=== PATIENT | female | born 1940 | race Caucasian/White ===

== ENCOUNTER → 2017-04-13 08:51 | Day surgery (SDC) | payer MEDICARE, SELFPAY ==
[2017-04-12 09:35] VITALS: BMI 45.7
[2017-04-13 09:11] LABS: Hematocrit 37.8 % (37-47); Hemoglobin 11.3 g/dl (12.0-15.0); Mean Corp Hgb Conc 29.9 g/gl (32-36); Mean Corpuscular Hgb 25.1 pg (27.0-32.0); Mean Platelet Vol. 8.3 fl (6.2-12.0); Platelet Count 256 K/mm3 (150-450); RBC Distribution Width CV 18.9 % (11.6-14.6); RBC Distribution Width SD 57.9 fl (35.1-43.9); White Blood Count 9.1 K/mm3 (4.4-11.0)
[2017-04-13 09:12] LABS: Scan Indicated on CBC? Y/N NO
[2017-04-13 09:26] LABS: Albumin, Serum 3.1 g/dL (3.2-5.0); BUN 26 mg/dL (7-18); BUN/Creat Ratio 31.1 RATIO (10-20); Calcium,Total 8.4 mg/dL (8.5-10.1); Chloride 105 mmol/L (98-107); Creatinine, Serum 0.84 mg/dL (0.55-1.02); EST Glomerular Filtration Rate 71 mL/min (>60); Est Glom Filt Rate - Afr Amer 86 mL/min (>60); Estimated Creatinine Clearance 45.77 ml/min; Glucose 98 mg/dL (70-110); Phosphorus 3.7 mg/dL (2.5-4.9); Potassium 4.2 mmol/L (3.5-5.1); Sodium Level 141 mmol/L (136-145)
--- NOTE | 2017-04-13 11:26 | PCM.OPRPT ---
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 Ultrasound-guided access retrograde left brachial artery. #2 arch aortogram with left arm angio. #3 stent the left subclavian with a 7 x 39 [place] Type of Anesthesia:: Sedation,Conscious Description of Procedure: Ada was brought to the Fisheries Enforcement Officer. Underwent the appropriate timeout consent. Underwent conscious sedation. Prepped and draped in a sterile fashion. We did ultrasound-guided access retrograde left brachial artery and put a Glidewire and then a 5 [place] sheath. We gave 3000 units of heparin. We then brought in a Kumpe catheter and image showing the subtotal occlusion of the subclavian we used the Glidewire and catheter got through the area the occlusion confirmed into the arch aorta. We did an angiogram there get the wire down the descending thoracic aorta brought in a stiff Glidewire brought in a longer 6 [place] sheath through the lesion. We pulled back showing the area into the arch brought in a 7 x 39 [place] and deployed in good position we then brought a 7 x 2 balloon and ballooned at the area of into the arch to expand this further. We did a completion angios showed great flow now through the stent which is widely patent. Removed out the sheath put a shorter sheath and held pressure with good hemostasis she was then brought to recovery in stable condition
--- NOTE | 2017-04-13 11:30 | OP.PCM_ITS ---
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 Ultrasound-guided access retrograde left brachial artery. #2 arch aortogram with left arm angio. #3 stent the left subclavian with a 7 x 39 [place] Type of Anesthesia:: Sedation,Conscious Description of Procedure: Ada was brought to the Tower Switch Operator. Underwent the appropriate timeout consent. Underwent conscious sedation. Prepped and draped in a sterile fashion. We did ultrasound-guided access retrograde left brachial artery and put a Glidewire and then a 5 [place] sheath. We gave 3000 units of heparin. We then brought in a Kumpe catheter and image showing the subtotal occlusion of the subclavian we used the Glidewire and catheter got through the area the occlusion confirmed into the arch aorta. We did an angiogram there get the wire down the descending thoracic aorta brought in a stiff Glidewire brought in a longer 6 [place] sheath through the lesion. We pulled back showing the area into the arch brought in a 7 x 39 [place] and deployed in good position we then brought a 7 x 2 balloon and ballooned at the area of into the arch to expand this further. We did a completion angios showed great flow now through the stent which is widely patent. Removed out the sheath put a shorter sheath and held pressure with good hemostasis she was then brought to recovery in stable condition
== END ==
PROVIDERS: Family Provider Family Medicine; PCP Family Medicine; Visit Provider Surgery Vascular Surgery
DX: G45.0 Vertebro-basilar artery syndrome (principal); K21.9 Gastro-esophageal reflux disease without esophagitis; J44.9 Chronic obstructive pulmonary disease, unspecified; E11.9 Type 2 diabetes mellitus without complications; F32.9 Major depressive disorder, single episode, unspecified; F41.9 Anxiety disorder, unspecified; M19.90 Unspecified osteoarthritis, unspecified site; J45.909 Unspecified asthma, uncomplicated; Z72.0 Tobacco use
CPT/HCPCS: 36415; 37236; 75710; 76937; 80069; 85027; 99152; 99153; J7040; Q9967; C1725; C1769; C1876; C1894

== ENCOUNTER 2017-04-20 14:16 | Emergency (ER) | payer MEDICARE, SELFPAY ==
[2017-04-20 14:17] VITALS: BP 150/75; PULSE 82; RESP 16; TEMP 36.6; O2SAT 95; BMI 48.2
--- NOTE | 2017-04-20 14:38 | CT_ITS ---
STUDY: CT BRAIN WITHOUT CONTRAST REASON FOR EXAM: Female, 76 years old. 3 week history of headaches. RADIATION DOSAGE (If Supplied By Facility): CTDIvol = ( 44.99 ) mGy, DLP = ( 779.24 ) mGycm TECHNIQUE: Transaxial CT imaging of the brain was performed without administration of intravenous contrast material. Individualized dose optimization techniques were used for this CT. COMPARISON: None. FINDINGS: Normal soft tissue structures. Normal calvarium. Normal size ventricles and extra-axial spaces for the patient's age. Normal white matter tracts of the cerebral hemispheres. Normal basal ganglia and thalami. Normal brainstem. Normal cerebellum. There is no intracranial hemorrhage. There are no findings of an acute ischemic infarction. Normal visualized paranasal sinuses. CT/Brain/Head without Contrast IMPRESSION: Normal unenhanced CT scan of the brain. Electronically Signed: Emanuel Ventura MD at 15:57 EST Tel [phone], Service support ,
--- NOTE | 2017-04-20 15:23 | ED.RN ---
BENADRYL 25MG IVP & COMPAZINE 10MG IVP WERE ADMINISTERED BY THIS NURSE. UNABLE TO CHART UNDER SHANELLE CHIRINOS. DUE TO CHARTING WAS STARTED BY CARMELA PARTIDA RN.
[2017-04-20] MEDS: DiphenhydrAMINE 50 MG/ML Syringe 25 MG IV (16:01)
[2017-04-20] MEDS: proCHLORPERazine 10 MG/2 ML Vial IM (16:01)
--- NOTE | 2017-04-20 16:23 | ED.VISSUMM ---
- ER Visit Summary Date of Service: 04/20/17 Chief Complaint: Headache History of Present Illness: The patient is a 76 F who presents with a headache. She has had 3 days of a left-sided dull pain. She has had associated nausea. No vomiting. She has had some blurry vision. She denies any falls or trauma. She had an angioplasty done on April 13. The headache was going on long before that. She tried Tylenol at home without any relief. Physical Examination: Vital signs reviewed. HEENT exam unremarkable. She does have tenderness on the left cervical paraspinal area. Heart is regular rate and rhythm without murmurs. Lungs are clear to auscultation. Abdomen is soft and nontender. Extremities reveal no edema. Skin exam normal. Neurologic exam normal. Test Results: CT scan of the head normal Emergency Department Course and Treatment: Patient was given Compazine and Benadryl. Her headache improved with this. The pain might be muscular tension she does have some muscular pain in her neck. Family will massage the neck and put some creams on it. She will continue Tylenol and will follow up with her PCP Treatment Plan: [] Disposition: Discharge Impression: Headache This note was generated with [employer] dictation software. It may contain incorrect words, spelling, and punctuation that were not noted in review of the chart prior to signing ED Disposition - Plan for ED Patient: Chief Complaint: Headache Referrals: Vicente Raya III, MD [Primary Care Provider] -
--- NOTE | 2017-04-20 16:25 | ED.DEP ---
ED Disposition - Plan for ED Patient: Disposition: Home or Assisted Living Chief Complaint: Headache Instructions: ED Cephalgia Unspecified Referrals: Vicente Raya III, MD [Primary Care Provider] -
== END 2017-04-20 16:33 | disposition home or self-care (01) ==
PROVIDERS: Emergency Provider Emergency Medicine; Family Provider Family Medicine; PCP Family Medicine
DX: R51 Headache (principal); R11.0 Nausea; I25.10 Atherosclerotic heart disease of native coronary artery without angina pectoris; J45.909 Unspecified asthma, uncomplicated; E11.9 Type 2 diabetes mellitus without complications; I10 Essential (primary) hypertension; Z72.0 Tobacco use
CPT/HCPCS: 70450; 99283; A4216

== ENCOUNTER 2017-07-06 11:00 | Outpatient (RCR) | payer MEDICARE, SELFPAY | END 2017-07-11 23:59 | LOC: NS 11:00 | PROVIDERS: Family Provider Family Medicine; PCP Family Medicine; Visit Provider Family Medicine | DX: E66.01 Morbid (severe) obesity due to excess calories (principal); E11.9 Type 2 diabetes mellitus without complications; I25.10 Atherosclerotic heart disease of native coronary artery without angina pectoris; G47.33 Obstructive sleep apnea (adult) (pediatric); J45.909 Unspecified asthma, uncomplicated; Z68.42 Body mass index [BMI] 45.0-49.9, adult; Z71.3 Dietary counseling and surveillance | CPT/HCPCS: 97803 ==

== ENCOUNTER 2017-07-10 08:31 | Emergency (ER) | payer MEDICARE, SELFPAY ==
[2017-07-10 08:33] VITALS: BP 152/80; PULSE 88; RESP 16; TEMP 36.5; O2SAT 94; BMI 45.7
--- NOTE | 2017-07-10 08:44 | CT_ITS ---
STUDY: CT BRAIN WITHOUT CONTRAST REASON FOR EXAM: Female, 76 years old. Headaches RADIATION DOSAGE (If Supplied By Facility): CTDIvol = ( 44.99 ) mGy, DLP = ( 745.49 ) mGycm TECHNIQUE: Transaxial CT imaging of the brain was performed without administration of intravenous contrast material. Individualized dose optimization techniques were used for this CT. COMPARISON: None. FINDINGS: Normal soft tissue structures. Normal calvarium. There is mild cerebral atrophy with widening of the extra-axial spaces and ventricular dilatation. There are areas of decreased attenuation within the white matter tracts of the supratentorial brain, consistent with microvascular disease changes. Normal basal ganglia and thalami. Normal brainstem. There is mild cerebellar atrophy. Empty sella. There is no intracranial hemorrhage. There are no findings of an acute ischemic infarction. Normal visualized paranasal sinuses. CT/Brain/Head without Contrast IMPRESSION: Chronic involutional changes of the brain. Electronically Signed: Poli Aguillon DO at 10:26 EDT Tel , Service support ,
--- NOTE | 2017-07-10 08:52 | ED.VISSUMM ---
- ER Visit Summary Date of Service: 07/10/17 Chief Complaint: [] Neck pain and headache after mushroom hunting yesterday History of Present Illness: The patient is a 76 F [] history of cardiac stents, hypertension, diffuse whole body arthritis, fibromyalgia, peripheral vascular disease with right sided carotid endarterectomy, left axillary stent type sent by history who was in her usual state of stable health she felt well she was out mushroom hunting bending over picking up mushrooms than a few hours later began having pain to her neck and back of the head to where she had trouble rotating her head left or right she has no paresthesias, no trauma, no numbness weakness no difficulty with her cognition and her speech or vision are all normal, she was able to go about her normal activities, the neck stiffness and headache persisted she came in for evaluation she is on hydrocodone for fibromyalgia and diffuse arthritic pain that is not helping, she indicates other than the repetitive bending and turning yesterday she did not suffer any direct trauma, and despite all the above she has been able to execute her daily activities Physical Examination: [] Her vital signs are within normal range she is resting comforting the bed she points directly to the right and left paracervical musculature and she has some discomfort into the occipital area of her head palpation of these areas are really nonspecific there is no signs of warmth fullness redness there is no specific C-spine tenderness when she is asked to rotate her head left or right or bend her head she complains of discomfort in her neck, she is awake and alert her cranial nerves are normal her speech and vision are normal her phonation is normal, her neck again is as above but she is able to move left and right and is able to flex and extend but complains of discomfort, she has carotid upstrokes bilaterally, her lungs are more wheezing, the heart tones sound regular the abdomen is soft and obese but nontender upper lower extremities unremarkable she has strong radial pulses bilaterally she has excellent normal strength of upper extremities and lower extremities no deficits in sensation no deficits of cerebellar function cranial nerves and speech are normal her NIH is 0 Test Results: [] Emergency Department Course and Treatment: [] The symptoms started yesterday afternoon given her age and all the above CT scan pain management screening labs Her screening labs are generally unremarkable for her hemoglobin is 10 that is near baseline, her EKG shows nothing acute, her head CT and neck CT showed nothing acute rather signs consistent with her age, and DJD's multiple level cervical spine but no fracture or anything that is acute on reevaluation she is feeling better discussed issues with her and her she is feeling better she wants to go home she understands the concept of the arthritis triggering this pain from the activity she described above, she will follow-up her family physicians given her multiple allergies her current pain management options and the fact she is currently under pain management by her physicians have explained she should stay on those medications and obtain further pain management options from her primary care physicians or other physicians she understands and will follow-up she is also to avoid strenuous lifting bending or mushroom collecting type activities and she agrees and will return for change in symptoms Treatment Plan: [] Disposition: [] Home stable Impression: [] Acute cervical strain, cervical spine DJD headache suspect related to activity dictated above This note was generated with [employer] dictation software. It may contain incorrect words, spelling, and punctuation that were not noted in review of the chart prior to signing ED Disposition - Plan for ED Patient: Chief Complaint: Headache Referrals: Vicente Raya III, MD [Primary Care Provider] -
--- NOTE | 2017-07-10 08:55 | NURSING ---
NO LW OR POA
--- NOTE | 2017-07-10 08:56 | CT_ITS ---
STUDY: CT CERVICAL SPINE WITHOUT CONTRAST REASON FOR EXAM: Female, 76 years old. Pain to right side of head and neck RADIATION DOSAGE (If Supplied By Facility): CTDIvol = ( 29.81 ) mGy, DLP = ( 582.50 ) mGycm TECHNIQUE: High resolution transaxial imaging was performed without contrast material. Sagittal and coronal images were reconstructed. Individualized dose optimization techniques were used for this CT. COMPARISON: None FINDINGS: Normal craniovertebral junction. Normal anterior atlantoaxial articulation. Normal odontoid process. Normal cervical lordosis. No acute fracture or listhesis. Mild diffuse demineralization. Mild to moderate multilevel degenerative disc disease, most prominent at C4-5, C5-6 and C6-7. No critical central canal stenosis. Normal visualized soft tissue structures. CT/Spine Cervical without Contras IMPRESSION: Multilevel degenerative changes, as described above. Electronically Signed: Poli Aguillon DO at 10:25 EDT Tel , Service support ,
[2017-07-10] MEDS: Morphine 4 MG/ML Syringe IV ×2 (09:05→10:36)
[2017-07-10] MEDS: Ondansetron 4 MG/2 ML Vial IV (09:05)
[2017-07-10 09:20] LABS: Absolute Neutrophil Count 9.3 X10^3/uL (2.0-7.7); Basophil# 0.03 X10^3/uL; Basophil% 0.2 % (0-1); Eosinophil# 0.14 X10^3/uL; Eosinophils% 1.1 % (0-5); Hematocrit 34.3 % (37-47); Hemoglobin 10.3 g/dl (12.0-15.0); Lymphocyte % 12.3 % (19-41); Mean Corpuscular Hgb 24.4 pg (27.0-32.0); Mean Corpuscular Volume 81.3 fL (81-99); Mean Platelet Vol. 8.2 fl (6.2-12.0); Monocyte# 1.18 X10^3/uL; Monocyte% 9.7 % (0-10); Neutrophil # 9.33 X10^3/uL (2.7-7.7); Neutrophil % 76.5 % (47-70); POSITIVE COUNT NO; POSITIVE DIFFERENTIAL NO; POSITIVE MORPHOLOGY NO; Platelet Count 225 K/mm3 (150-450); RBC Distribution Width CV 18.1 % (11.6-14.6); RBC Distribution Width SD 53.2 fl (35.1-43.9); Red Blood Count 4.22 M/mm3 (4.2-5.4); White Blood Count 12.2 K/mm3 (4.4-11.0)
[2017-07-10 09:30] LABS: Anion Gap 5 (5-15); BUN 18 mg/dL (7-18); BUN/Creat Ratio 25.5 RATIO (10-20); Calcium,Total 8.4 mg/dL (8.5-10.1); Chloride 104 mmol/L (98-107); EST Glomerular Filtration Rate 86 mL/min (>60); Est Glom Filt Rate - Afr Amer 104 mL/min (>60); Estimated Creatinine Clearance 38.44 ml/min; Glucose 97 mg/dL (74-106); Potassium 3.9 mmol/L (3.5-5.1); Sodium Level 138 mmol/L (136-145)
--- NOTE | 2017-07-10 10:17 | EKG12_ITS ---
Test Reason : DYSRHYTHMIA Blood Pressure : / mmHG Vent. Rate : 075 BPM Atrial Rate : 075 BPM P-R Int : 174 ms QRS Dur : 094 ms QT Int : 388 ms P-R-T Axes : 067 081 044 degrees QTc Int : 433 ms Normal sinus rhythm Nonspecific ST abnormality Abnormal ECG Confirmed by SANDI LEI, WILBERTO ([id number]), web content editor DANIA FULLER ([id number]) on 07/12/2017 2:08:18 PM Referred By: Vicente Raya Confirmed By:WILBERTO JUNIOR MD
[2017-07-10 10:42] VITALS: BP 129/71; PULSE 85; RESP 22; O2SAT 95
--- NOTE | 2017-07-10 11:22 | ED.DEP ---
ED Disposition - Plan for ED Patient: Chief Complaint: Headache Instructions: ED Cephalgia Unspecified, and Childbirth: Abdominal Cerclage, ED Sprain Strain Neck Referrals: Vicente Raya III, MD [Primary Care Provider] -
[2017-07-10 11:25] VITALS: BP 132/75; PULSE 85; RESP 16; O2SAT 98
== END 2017-07-10 12:10 | disposition home or self-care (01) ==
PROVIDERS: Emergency Provider Emergency Medicine; Family Provider Family Medicine; PCP Family Medicine
DX: M47.812 Spondylosis without myelopathy or radiculopathy, cervical region (principal); R51 Headache; S16.1XXA Strain of muscle, fascia and tendon at neck level, initial encounter; X50.1XXA Overexertion from prolonged static or awkward postures, initial encounter; Y93.89 Activity, other specified; Y92.89 Other specified places as the place of occurrence of the external cause; Y99.9 Unspecified external cause status; I10 Essential (primary) hypertension; I73.9 Peripheral vascular disease, unspecified; M79.7 Fibromyalgia; J44.9 Chronic obstructive pulmonary disease, unspecified; I25.10 Atherosclerotic heart disease of native coronary artery without angina pectoris
CPT/HCPCS: 70450; 72125; 80048; 85025; 93005; 96374; 96375; 96376; 99283; J7040; A4216; J2405

== ENCOUNTER → 2017-07-13 10:00 | Outpatient (CLI) | payer MEDICARE, SELFPAY ==
--- NOTE | 2017-07-20 11:33 | UEAS ---
Arterial Study - Arterial Study Arterial Study: next Date of scan 07/13/[address] Alas History of subclavian steal syndrome here for a digit brachial index are next Interpretation: Right upper extremity with a brachial pressure 174 digit brachial index of 141 with a digit brachial index of 0.81 Left upper extremity brachial pressure 154 digit brachial at 140 with the digit brachial index 0.80 Impression: 1. Right upper extremity no evidence significant occlusive disease at the normal pressure normal digit brachial index 2. Left upper extremity digit brachial index appears symmetric to the right at 0.8 but decreased pressure at the brachial 154. Further evaluation as clinically warranted
== END ==
PROVIDERS: Family Provider Family Medicine; PCP Family Medicine; Visit Provider Surgery Vascular Surgery
DX: G45.8 Other transient cerebral ischemic attacks and related syndromes (principal)
CPT/HCPCS: 93923; 93931

== ENCOUNTER 2017-07-20 11:12 | Outpatient (RCR) | payer MEDICARE, SELFPAY | END 2017-07-20 11:13 | disposition home or self-care (01) | LOC: NS 11:12 | PROVIDERS: Family Provider Family Medicine; PCP Family Medicine; Visit Provider Family Medicine | DX: E66.01 Morbid (severe) obesity due to excess calories (principal); E11.9 Type 2 diabetes mellitus without complications; Z71.3 Dietary counseling and surveillance | CPT/HCPCS: 97803 ==

== ENCOUNTER 2017-11-17 23:09 | Inpatient (IN) | payer MEDICARE, SELFPAY ==
[2017-11-17 23:12] VITALS: BP 140/68; PULSE 93; RESP 18; TEMP 36.8; O2SAT 93; BMI 45.7
[2017-11-18] VITALS (23 sets, daily range): BP systolic 111–140; BP diastolic 45–81; PULSE 83–115; RESP 18–24; TEMP 36.5–36.7; O2SAT 92–100; BMI 50.5; BMI 50.6
--- NOTE | 2017-11-18 00:12 | EKG12_ITS ---
Test Reason : SOB Blood Pressure : / mmHG Vent. Rate : 077 BPM Atrial Rate : 077 BPM P-R Int : 194 ms QRS Dur : 080 ms QT Int : 360 ms P-R-T Axes : 070 064 092 degrees QTc Int : 407 ms Normal sinus rhythm Septal infarct , age undetermined Abnormal ECG Confirmed by MARRY CARD ([id number]), communications editor DANIA FULLER ([id number]) on 11/22/2017 2:39:55 PM Referred By: Princess Finney Confirmed By:MARRY CARD
[2017-11-18] MEDS: Albuterol 2.5 MG/3 ML VIAL.NEB. INHALATION ×3 (00:20→01:02)
[2017-11-18] MEDS: Ipratropium/Albuterol Sulfate 3 ML AMPUL.NEB INHALATION ×6 (00:20→23:19)
[2017-11-18] MEDS: 0.9% Normal Saline 1,000 ML 150 ML IV (01:05)
[2017-11-18] MEDS: MethylPREDNISolone 125 MG/2 ML Vial IV (01:05)
[2017-11-18 01:07] LABS: Absolute Lymphocyte Count 3.01 X10^3/ul (0.83-4.51); Absolute Neutrophil Count 12.7 X10^3/uL (2.0-7.7); Basophil# 0.04 X10^3/uL; Basophil% 0.2 % (0-1); Hematocrit 35.5 % (37-47); Lymphocyte # 3.01 X10^3/ul (4.0); Lymphocyte % 16.9 % (19-41); Mean Corpuscular Hgb 24.8 pg (27.0-32.0); Mean Platelet Vol. 8.8 fl (6.2-12.0); Monocyte# 1.91 X10^3/uL; Monocyte% 10.7 % (0-10); Neutrophil # 12.68 X10^3/uL (2.7-7.7); Neutrophil % 71.1 % (47-70); Platelet Count 345 K/mm3 (150-450); RBC Distribution Width CV 19.8 % (11.6-14.6); RBC Distribution Width SD 56.2 fl (35.1-43.9); Red Blood Count 4.44 M/mm3 (4.2-5.4); White Blood Count 17.8 K/mm3 (4.4-11.0)
[2017-11-18 01:09] LABS: Differential Indicated SCAN CRITERIA MET; POSITIVE COUNT NO; POSITIVE DIFFERENTIAL YES; POSITIVE MORPHOLOGY NO
[2017-11-18] MEDS: levoFLOXacin IV 750 MG/150 ML BAG 100 MG IV (01:26)
[2017-11-18 01:27] LABS: Anion Gap 9 (5-15); BUN 28 mg/dL (7-18); BUN/Creat Ratio 26.4 RATIO (10-20); Calcium,Total 8.7 mg/dL (8.5-10.1); Chloride 111 mmol/L (98-107); Creatinine, Serum 1.06 mg/dL (0.55-1.02); EST Glomerular Filtration Rate 54 mL/min (>60); Est Glom Filt Rate - Afr Amer 65 mL/min (>60); Estimated Creatinine Clearance 35.71 ml/min; Glucose 67 mg/dL (74-106); Potassium 4.3 mmol/L (3.5-5.1); Sodium Level 145 mmol/L (136-145)
[2017-11-18 01:43] LABS: Lactic Acid 2.2 mmol/L (0.4-2.0)
--- NOTE | 2017-11-18 01:43 | ED.RN ---
lab called with critical lab results. lactic acid 2.2. Dr. arreaga made aware. no new orders at this time
[2017-11-18 01:51] LABS: Differential Comment SCANNED
[2017-11-18] MEDS: LORazepam 2 MG/ML Syringe 1 MG IV (02:03)
--- NOTE | 2017-11-18 02:20 | ED.VISSUMM ---
- ER Visit Summary Date of Service: 11/18/17 Chief Complaint: [Shortness of breath] History of Present Illness: The patient is a 77 F [presents the emergency room with complaint of shortness of breath ?2 weeks. Patient has had a cough and at times coughing up yellow-white sputum and at times tinged with blood. Patient was diagnosed with pneumonia yesterday and started Zithromax. Patient complains of shortness of breath with activity and exertion. She denies any chest pain. Patient has been wheezing and has been having body aches.] Physical Examination: [HEENT-PERRLA, EOMI. Cranial nerves II through XII grossly intact. TMs clear. Mucous membranes moist. No adenopathy. Cardiovascular-regular rate and rhythm without murmur or ectopy Lungs-diminished breath sounds bilaterally with X Tory wheezes. Patient has some coarse breath sounds bilaterally. Mild tachypnea. No accessory muscles or retractions. Abdomen-normoactive bowel sounds, soft, nontender, no rebound or rigidity, no peritoneal signs. Extremities-intact ?4, normal range of motion, normal pulses, atraumatic] Test Results: CBC with differential obtained showed an elevated white count of 17.8, hemoglobin 11, hematocrit 35, platelets 345. Chemistries unremarkable. Troponin was less than 0.015. Chest x-ray obtained showed a right lower lobe that has increased markings cannot rule out pneumonia versus edema.] Emergency Department Course and Treatment: [Patient was started on Levaquin after blood cultures obtained. Patient was given DuoNeb aerosols and Solu-Medrol] Treatment Plan: [Admit] Disposition: [Admit] Impression: [Community-acquired pneumonia COPD exacerbation] This note was generated with [employer] dictation software. It may contain incorrect words, spelling, and punctuation that were not noted in review of the chart prior to signing ED Disposition - Plan for ED Patient: Chief Complaint: Shortness of Breath Referrals: Vicente Raya III, MD [Primary Care Provider] -
--- NOTE | 2017-11-18 02:24 | PCM.HP.STD ---
Problem List (1) Community acquired pneumonia Status: Acute (2) Tobacco abuse Status: Chronic (3) Obesities, morbid Status: Chronic (4) History of diabetes mellitus, type II Status: Chronic (5) Sepsis Status: Acute (6) VBI (vertebrobasilar insufficiency) Status: Chronic (7) Bradycardia Status: Inactive (8) Syncope Status: Resolved History of Present Illness Date of Admission: 11/18/17 Chief Complaint: Shortness of breath ?1 day. The patient is a 77 year old F with a significant history of morbid obesity, fibromyalgia, restless leg syndrome tobacco abuse; COPD, asthma, Diabetes, obstructive sleep apnea; as needed home oxygen use of 2 L; who presents with a 1 day history of progressive shortness of breath. She had of her symptoms productive cough with yellow sputum and hemoptysis. Patient went to her PCPs office and was given azithromycin. However because she was not improving on azithromycin she presented to the emergency department. Her shortness of breath worsens with exertion. Past Medical History Past Medical History (Chronic Problems): Chronic Problems (Last Updated 05/19/17 @ 14:12 by Sayda Larson) Carotid artery stenosis (Chronic) History of coronary artery stent placement (Chronic ~03/22/13) [id number] RCA [id number] RCA 2000 and 2002 Atherosclerosis of coronary artery of [place] heart without angina pectoris (Chronic) [id number] RCA 03/22/13 [id number] RCA 2000 and 2002 Chronic hypoxemic respiratory failure (Chronic) Stage 2 moderate COPD by GOLD classification (Chronic) VBI (vertebrobasilar insufficiency) (Chronic) Asthma (Chronic) HTN (hypertension) (Chronic) Hyperlipemia (Chronic) Tobacco abuse (Chronic) Obesities, morbid (Chronic) History of COPD (Chronic) History of diabetes mellitus, type II (Chronic) History of gastroesophageal reflux (GERD) (Chronic) Obstructive sleep apnea (Chronic) Medical History: Medical History (Last Reviewed 11/18/17 @ 10:37 by Omer Hoffman MD) Carotid artery stenosis (Chronic) I65.29 Atherosclerosis of coronary artery of [place] heart without angina pectoris (Chronic) I25.10 [id number]-[id number] RCA 03/22/13 [id number] RCA 2000 and 2002 Asthma (Chronic) J45.909 HTN (hypertension) (Chronic) I10 Hyperlipemia (Chronic) E78.5 Tobacco abuse (Chronic) Z72.0 Obesities, morbid (Chronic) E66.01 History of COPD (Chronic) Z87.09 History of diabetes mellitus, type II (Chronic) Z86.39 History of gastroesophageal reflux (GERD) (Chronic) Z87.19 Obstructive sleep apnea (Chronic) G47.33 Pneumonia (Acute) J18.9 Bradycardia (Acute) R00.1 Syncope (Acute) R55 Stenosis of left subclavian artery Onset Date: ~03/2017 I77.1 stent the left subclavian with a 7 x 39 [place] Abdominal pain (Resolved) R10.9 Septic shock (Resolved) A41.9, R65.21 Allergies aspirin [ASA] Allergy (Severe, Verified 11/17/17 23:14) Hives bupropion [From Wellbutrin] Allergy (Verified 11/17/17 23:14) Unknown codeine Allergy (Verified 11/17/17 23:14) Unknown meperidine HCl [From Demerol] Allergy (Verified 11/17/17 23:14) Hives naproxen sodium [From Anaprox] Allergy (Verified 11/17/17 23:14) Unknown Penicillins [PCN] Allergy (Verified 11/17/17 23:14) Unknown propoxyphene HCl [From Darvon] Allergy (Verified 11/17/17 23:14) Hives Sulfa (Sulfonamide Antibiotics) Allergy (Verified 11/17/17 23:14) Unknown NSAIDS (Non-Steroidal Anti-Inflamma Adverse Reaction (Verified 11/17/17 23:14) Other Home Medications: Ambulatory Orders Medication Instructions Recorded Budesonide/Formoterol 80-4.5 2 puff INHALATION BID 02/28/13 [Symbicort 80-4.5 Mcg Inhaler] Citalopram [Celexa] 20 mg PO DAILY 02/28/13 Fluticasone 0.05% [Flonase Nasal 2 spray NASAL DAILY PRN 02/28/13 [place]] Hydrocodone/Acetaminophen [Vicodin 1 tab PO BID PRN PRN 02/28/13 5-300 mg Tablet] Omeprazole [Prilosec] 40 mg PO DAILY 02/28/13 Clopidogrel Bisulfate [Plavix] 75 mg PO DAILY 07/08/14 Montelukast [Singulair] 10 mg PO QHS 07/08/14 Albuterol IH (ProAir) [Proair Hfa] 2 puff INHALATION Q6H PRN PRN 07/15/14 Pramipexole Di-HCl [Mirapex] 1 mg PO TID PRN 09/19/16 Atorvastatin Calcium [Lipitor] 40 mg PO QHS #30 tab 10/03/16 Furosemide [Lasix] 20 mg PO DAILY PRN 11/01/16 Lorazepam [Ativan] 0.5 mg PO QHS PRN PRN 11/01/16 nitroglycerin 0.4 mg sublingual 0.4 mg SUBLINGUAL Q5M PRN #25 tab 03/21/17 tablet Cholecalciferol (Vitamin D3) 50,000 unit PO 11/18/17 [Vitamin D] Ferrous Gluconate 325 mg PO BIDCM 11/18/17 Tolterodine Tartrate [Detrol LA] 4 mg PO DAILY 11/18/17 Surgical History: Surgical History (Last Reviewed 11/18/17 @ 10:37 by Omer Hoffman MD) History of coronary artery stent placement (Chronic) Onset Date: ~03/22/13 Z95.5 [id number]-[id number]-Rzft RCA [id number] RCA 2000 and 2002 History of cholecystectomy (Resolved) Z98.890, Z90.49 History of section (Resolved) Z98.891 H/O bariatric surgery (Resolved) Z98.84 History of right knee joint replacement Z96.651 History of right-sided carotid endarterectomy Onset Date: ~07/2014 Z98.890 left subclavian artery stent Onset Date: ~03/2017 Surgical History: angioplasty, - - 3 heart stents, bariatric surgery and , carotid endarterectemy Psychiatric History: No pertinent psych hx Smoking Status: Current every day smoker Alcohol: None - *Family History Maternal Family History: Family History (Last Reviewed 05/19/17 @ 13:47 by Sayda Larson) Mother CVA (cerebral vascular accident) Father Asthma Hypertension High blood cholesterol level Arthritis History Items: No pertinent history Review of Systems Constitutional: Denies: Chills, Fever Eyes: Denies: Blurred vision, Pain HEENT: Denies: Head Aches, Sinus Congestion, Sinus Drainage Cardiovascular: Denies: Chest Pain, Palpitations Respiratory: Reports: Cough, Shortness of Breath, Sputum production Gastrointestinal: Denies: Abdominal Pain, Nausea, Vomiting Genitourinary: Denies: Dysuria Musculoskeletal: Reports: Arm Pain Skin: Denies: Rash, Wounds Neurological: Denies: Numbness, Tingling, Focal weakness Psychiatric: Denies: Anxiety, Depression, Homicidal Ideations, Suicidal Ideations Hematologic/ Lymphatic: Denies: Easy Bruising, Easy Bleeding VTE Information - Inpt Only VTE Present on Admission: No VTE Mechan Device Prophylaxis: None VTE Pharm Prophylaxis ordered?: Yes Patient Problems: Active and Suspected Problems (Last Updated 05/19/17 @ 14:12 by Sayda Larson) Community acquired pneumonia (Acute) Sepsis (Acute) - Physical Exam General: Alert, Oriented x3, Cooperative HEENT: Atraumatic, PERRLA, EOMI, Normocephalic Neck: Supple, No JVD, Negative Carotid Bruits Lungs: Tachypneic, Wheezes Cardiovascular: Tachycardic Abdomen: Bowel Sounds Present, Soft, Non Tender Extremities: No edema, Capillary Refill Less than 3 Seconds Skin: No rashes, No breakdown Musculoskeletal: No Tenderness to Palpation of Joints or Extremities Neurological: Cranial nerves II-XII grossly intact Psych/Mental Status: Normal Affect, Appropriate Vital Signs Temp Pulse Resp BP Pulse Ox 98.2 F 115 H 21 H 128/67 H 95 11/17/17 23:12 11/18/17 01:48 11/18/17 01:48 11/18/17 01:48 11/18/17 01:48 Oxygen Flow Rate (L/min) 2 Oxygen Delivery Method Nasal Cannula Weight: 113.398 kg Body Mass Index (BMI) 45.7 Laboratory Tests Past 24 Hrs 11/18/17 11/18/17 11/18/17 00:55 00:55 00:55 WBC 17.8 H RBC 4.44 Hgb 11.0 L Hct 35.5 L MCV 80.0 L MCH 24.8 L MCHC 31.0 L RDW 19.8 H RDW Differential 56.2 H Plt Count 345 MPV 8.8 Immature Gran % (Auto) 1.100 H Neut % (Auto) 71.1 H Lymph % (Auto) 16.9 L [place] % (Auto) 10.7 H Eos % (Auto) 0.0 Baso % (Auto) 0.2 Absolute Neuts (auto) 12.7 H Absolute Lymphs (auto) 3.01 Total Counted Not Reportable Differential Comment SCANNED Diff Path Review May foll Sodium 145 Potassium 4.3 Chloride 111 H Carbon Dioxide 25.0 Anion Gap 9 BUN 28 H Creatinine 1.06 H Estim Creat Clear Calc 35.71 Est GFR (MDRD) Af Amer 65 Est GFR (MDRD) Non-Af 54 L BUN/Creatinine Ratio 26.4 H Glucose 67 L Lactic Acid 2.2 H Calcium 8.7 Troponin I < 0.015 Assessment/Plan All Active Problems (Last Updated 05/19/17 @ 14:12 by Sayda Larson) Community acquired pneumonia (Acute) Sepsis (Acute) History of cholecystectomy (Resolved) History of section (Resolved) H/O bariatric surgery (Resolved) Pneumonia (Acute) Syncope (Resolved) Abdominal pain (Resolved) Septic shock (Resolved) The patient is a 77 year old F with a significant history of morbid obesity, tobacco abuse; COPD, asthma, Diabetes, obstructive sleep apnea; as needed home oxygen use; who presents with a 1 day history of progressive shortness of breath; productive cough; tachycardia; tachypnea, leukocytosis and radiographic evidence of right lower lobe infiltrates consistent with sepsis due to community-acquired pneumonia . Sepsis due to community-acquired pneumonia Blood cultures are pending Sputum cultures ordered Legionella antigen and streptococcal pneumonia antigen ordered Levaquin started at emergency department Levaquin continued. Labs reviewed. Leukocytosis Received normal saline IV infusion. Trend WBC Receives Solu-Medrol at emergency department. Solu-Medrol continued Scheduled DuoNeb and as needed albuterol ordered Mucinex ordered COPD and asthma Singular Breathing treatment as above Fluticasone continued Anemia Hemoglobin low but stable Continue iron supplement Restless leg syndrome Mirapex continued Obstructive sleep apnea Patient reports that her noninvasive pressure ventilation device was taken from from her because of noncompliance Uses oxygen as needed at home Titrate oxygen for oxygen saturation of 92%. Hyperlipidemia Lipitor continued Depression/anxiety Celexa continued Ativan continued Overactive bladder Detrol continue DVT prophylaxis subcutaneous heparin Code Visit Inpatient E&M: 40125 Init Hosp L3
[2017-11-18] MEDS: 0.9% Normal Saline 1,000 ML 100 ML IV (03:45)
[2017-11-18 04:59] LABS: Reflex Lactate? Y
[2017-11-18 06:06] LABS: Lactic Acid 1.2 mmol/L (0.4-2.0)
[2017-11-18] MEDS: Ferrous Gluconate 325 MG Tablet PO ×2 (08:42→17:53)
[2017-11-18] MEDS: Tolterodine Tartrate 4 MG CAP.SA PO (08:42)
[2017-11-18] MEDS: Heparin Injection (Vial) 5,000 UNIT/ML VIAL 5000 UNIT SC ×2 (08:42→14:06)
[2017-11-18] MEDS: Citalopram 20 MG Tablet PO (08:42)
[2017-11-18] MEDS: guaiFENesin 1,200 MG Tablet 1200 MG PO ×2 (08:43→22:39)
[2017-11-18] MEDS: Clopidogrel Bisulfate 75 MG Tablet PO (08:43)
[2017-11-18] MEDS: Pantoprazole Sodium 40 MG Tablet PO (08:43)
[2017-11-18 11:21] LABS: Pathologist Review Reviewed
--- NOTE | 2017-11-18 13:03 | CASEMGMT ---
RN CM Assessment completed. See Link. -Home Health ordered through [facility]. Call to [facility]-verified that pt's home address is in their service area. -Intro role of CM to patient and her daughter. Lengthy conversation re: concerns for pt's declining mobility at home. Discussed home health on discharge as pt will be home bound initially, requiring assistance to leave home. Discussed that assist for household cleaning and running errands would be self pay. Offered list of private pay aides, but they declined at this time. -Daughter is home during day, works during evening and assists patient and her . -Discussed smoking cessation. Pt states she is tired of people telling her to quit smoking but she will try to reduce amount. -PT/OT evaluations are pending. Lennox GUZMAN RN ACM
[2017-11-18] MEDS: Pramipexole Di-HCl 1 MG Tablet PO (14:04)
--- NOTE | 2017-11-18 14:12 | PCM.PROGNOTE ---
<Saul Tarango - Last Filed: 11/18/17 14:23> Patient Problems: Active and Suspected Problems (Last Reviewed 11/18/17 @ 10:37 by Omer Hoffman MD) Community acquired pneumonia (Acute) Sepsis (Acute) Subjective: + productive cough. + chills. More SOB even at rest. normally uses o2 only prn. currently requiring 24 hour o2. Prior CPAP, was taken away by equipment provider. She smokes 1 ppd for 60+ years. Requesting patch. Follows Dr. Soto. Had hemoptysis at presentation. none today. yellow mucus today. No LE edema. - Physical Exam General: Alert, Oriented x3, Cooperative HEENT: Atraumatic, PERRLA, EOMI, Normocephalic Neck: Supple, No JVD, Negative Carotid Bruits Lungs: Diminished, Wheezes Cardiovascular: Regular rate, No murmurs Abdomen: Bowel Sounds Present, Soft, Non Tender Extremities: No edema, Capillary Refill Less than 3 Seconds Skin: No rashes, No breakdown Musculoskeletal: No Tenderness to Palpation of Joints or Extremities Neurological: Cranial nerves II-XII grossly intact Psych/Mental Status: Normal Affect, Appropriate, Alert and oriented to time, place, person, mood and affect Vital Signs Temp Pulse Resp BP Pulse Ox 97.7 F L 83 20 H 123/73 H 92 11/18/17 08:15 11/18/17 11:26 11/18/17 11:26 11/18/17 08:15 11/18/17 08:15 Oxygen Flow Rate (L/min) 3 Oxygen Delivery Method Nasal Cannula Weight: 276 lb 10.882 oz Body Mass Index (BMI) 50.5 Intake and Output for Last 24 Hours 11/16/17 11/17/17 11/18/17 23:59 23:59 23:59 Intake Total 1958 Output Total 300 / 300 Balance 1659 / 1659 Microbiology Past 72 Hours 11/18/17 08:25 Gram Stain - Final Sputum, Expectorated/Coughed 11/18/17 07:35 Legionella Antigen - Final Urine, Random 11/18/17 07:35 Streptococcus pneumoniae Antigen (M - Final Urine, Random 11/18/17 04:12 Influenza Types A,B Direct FA (JOSE) - Final Mucosa - Nose Laboratory Tests Past 24 Hrs 11/18/17 05:16 Lactic Acid 1.2 Medical Necessity - Tobacco Use Smoking Status: Current every day smoker Assessment/Plan All Active Problems (Last Reviewed 11/18/17 @ 10:37 by Omer Hoffman MD) Community acquired pneumonia (Acute) Sepsis (Acute) History of cholecystectomy (Resolved) History of section (Resolved) H/O bariatric surgery (Resolved) Pneumonia (Acute) Syncope (Resolved) Abdominal pain (Resolved) Septic shock (Resolved) 1. Acute sepsis 2/2 Right sided CAP - wbc elevation and tachy at presentation, cxr c/w pna. On levaquin. Cultures sent. Urine antigens neg. Sputum pending. flu neg. 2. Acute COPD exacerbation - steroids, aerosols. Pt feels she only has asthma. 3. tobacco abuse - patch 4. JESSICA - formerly on cpap, no longer 2/2 noncompliance 5. HTN - stable 6. HLD - statin 7. CAD - hold plavix. continue statin. 8. GERD - ppi 9. Anxiety - home meds. 10. morbid obesity complicating #1/4 DVT ppx: hemoptysis, scds only DC planning: follow cultures. pt,ot. This patient was seen by Saul Tarango PA-C under the supervision of Doctor Alex. <Tee Johnson - Last Filed: 11/18/17 15:12> - Physical Exam General: Alert, Cooperative HEENT: Atraumatic, Normocephalic Lungs: Diminished, Wheezes Cardiovascular: Regular rate, Regular Rhythm, Normal S1, Normal S2, No murmurs Abdomen: Bowel Sounds Present, Soft, Non Tender, Non-Distended Extremities: No edema, No Calf Tenderness Skin: No rashes, No breakdown Psych/Mental Status: Normal Affect, Appropriate Vital Signs Temp Pulse Resp BP Pulse Ox 36.6 C 86 22 H 111/45 L 96 11/18/17 14:11/18/17 14:09 11/18/17 14:11/18/17 14:11/18/17 14:09 Oxygen Flow Rate (L/min) 2 Oxygen Delivery Method Nasal Cannula Weight: 125.5 kg Body Mass Index (BMI) 50.5 Intake and Output for Last 24 Hours 11/16/17 11/17/17 11/18/17 23:59 23:59 23:59 Intake Total 1958 1958 Output Total 300 / 300 Balance 1659 / 165 Microbiology Past 72 Hours 11/18/17 08:25 Gram Stain - Final Sputum, Expectorated/Coughed 11/18/17 07:35 Legionella Antigen - Final Urine, Random 11/18/17 07:35 Streptococcus pneumoniae Antigen (M - Final Urine, Random 11/18/17 04:12 Influenza Types A,B Direct FA (JOSE) - Final Mucosa - Nose Laboratory Tests Past 24 Hrs 11/18/17 05:16 Lactic Acid 1.2 Assessment/Plan Patient seen and examined independently. Data reviewed. I agree with the above note by the physician housekeeper and laundry assistant. 1. Sepsis Secondary to pneumonia Present on admission 2. Suspected pneumococcal pneumonia Strep antigen, Legionella antigen and. Hemoccult are pending and blood culture pending. Continue with Levaquin 3. Acute COPD exacerbation Continue with bronchodilators and steroids Patient still actively smoking. 4. Hemoptysis Resolved Continue to monitor If recurs consider consultation to pulmonology. Code Visit Inpatient E&M: 29756 Subs Hosp L3
[2017-11-18] MEDS: LORazepam 2 MG/ML Syringe 0.5 MG IV (15:00)
[2017-11-18] MEDS: Montelukast 10 MG Tablet PO (22:39)
[2017-11-18] MEDS: Atorvastatin Calcium 40 MG Tablet PO (22:39)
[2017-11-18] MEDS: LORazepam 0.5 MG Tablet PO (23:04)
[2017-11-19] VITALS (18 sets, daily range): BP systolic 106–141; BP diastolic 55–75; PULSE 77–122; RESP 16–20; TEMP 36.6–36.9; O2SAT 84–98
[2017-11-19] MEDS: Albuterol 2.5 MG/3 ML VIAL.NEB. INHALATION (02:24)
[2017-11-19] MEDS: Ipratropium/Albuterol Sulfate 3 ML AMPUL.NEB INHALATION ×5 (07:01→22:37)
[2017-11-19 07:23] LABS: Absolute Lymphocyte Count 0.76 X10^3/ul (0.83-4.51); Basophil# 0.02 X10^3/uL; Basophil% 0.1 % (0-1); Hemoglobin 10.6 g/dl (12.0-15.0); Lymphocyte # 0.76 X10^3/ul (4.0); Lymphocyte % 5.2 % (19-41); Mean Corp Hgb Conc 29.4 g/gl (32-36); Mean Corpuscular Hgb 24.1 pg (27.0-32.0); Mean Platelet Vol. 8.8 fl (6.2-12.0); Monocyte# 0.69 X10^3/uL; Monocyte% 4.7 % (0-10); Neutrophil # 13.03 X10^3/uL (2.7-7.7); Neutrophil % 89.3 % (47-70); POSITIVE COUNT NO; POSITIVE DIFFERENTIAL NO; POSITIVE MORPHOLOGY NO; Platelet Count 293 K/mm3 (150-450); RBC Distribution Width CV 19.9 % (11.6-14.6); RBC Distribution Width SD 58.7 fl (35.1-43.9); Red Blood Count 4.39 M/mm3 (4.2-5.4); White Blood Count 14.6 K/mm3 (4.4-11.0)
[2017-11-19 07:42] LABS: Anion Gap 9 (5-15); BUN 25 mg/dL (7-18); Calcium,Total 8.7 mg/dL (8.5-10.1); Chloride 111 mmol/L (98-107); Creatinine, Serum 0.83 mg/dL (0.55-1.02); EST Glomerular Filtration Rate 71 mL/min (>60); Est Glom Filt Rate - Afr Amer 86 mL/min (>60); Estimated Creatinine Clearance 45.61 ml/min; Glucose 157 mg/dL (74-106); Potassium 4.8 mmol/L (3.5-5.1); Sodium Level 143 mmol/L (136-145)
--- NOTE | 2017-11-19 07:44 | CPS ---
pt placed back on 3.5 lpm nasal cannula
[2017-11-19] MEDS: Citalopram 20 MG Tablet PO (08:45)
[2017-11-19] MEDS: Tolterodine Tartrate 4 MG CAP.SA PO (08:45)
[2017-11-19] MEDS: Ferrous Gluconate 325 MG Tablet PO ×2 (08:45→16:18)
[2017-11-19] MEDS: Pantoprazole Sodium 40 MG Tablet PO (08:46)
[2017-11-19] MEDS: guaiFENesin 1,200 MG Tablet 1200 MG PO ×2 (08:46→20:43)
[2017-11-19] MEDS: levoFLOXacin IV 750 MG/150 ML BAG 100 MG IV (11:24)
--- NOTE | 2017-11-19 13:04 | PCM.PROGNOTE ---
<Saul Tarango - Last Filed: 11/19/17 13:04> Patient Problems: Active and Suspected Problems (Last Reviewed 11/18/17 @ 10:37 by Omer Hoffman MD) Community acquired pneumonia (Acute) Sepsis (Acute) Subjective: Pt resting comfortably in chair bedside, overall feels only slightly improved. Still short of breath even at rest, worse with exertion. No fevers or chills overnight, she does continue to have heavy sweats soaking her down at night. She has no chest pain or pain with deep breathing. No pitting edema. She does continue to have a productive cough. She is not noticed any blood today, she did have hemoptysis one time last night. - Physical Exam General: Alert, Oriented x3, Cooperative HEENT: Atraumatic, PERRLA, EOMI, Normocephalic Neck: Supple, No JVD, Negative Carotid Bruits Lungs: Clear to auscultation, Normal air movement Cardiovascular: Regular rate, No murmurs Abdomen: Bowel Sounds Present, Soft, Non Tender Extremities: No edema, Capillary Refill Less than 3 Seconds Skin: No rashes, No breakdown Musculoskeletal: No Tenderness to Palpation of Joints or Extremities Neurological: Cranial nerves II-XII grossly intact Psych/Mental Status: Normal Affect, Appropriate, Alert and oriented to time, place, person, mood and affect Vital Signs Temp Pulse Resp BP Pulse Ox 97.8 F 90 16 141/71 H 84 11/19/17 05:23 11/19/17 11:46 11/19/17 11:06 11/19/17 05:23 11/19/17 07:01 Oxygen Flow Rate (L/min) 3 Oxygen Delivery Method Nasal Cannula Weight: 276 lb 10.882 oz Body Mass Index (BMI) 50.5 Intake and Output for Last 24 Hours 11/17/17 11/18/17 11/19/17 23:59 23:59 23:59 Intake Total 2589 / 2589 Output Total 300 / 300 Balance 2289 / 2289 Microbiology Past 72 Hours 11/18/17 08:25 Gram Stain - Final Sputum, Expectorated/Coughed Respiratory Culture - Preliminary Appears to be normal respiratory christian. Further studies to follow. 11/18/17 07:35 Legionella Antigen - Final Urine, Random 11/18/17 07:35 Streptococcus pneumoniae Antigen (M - Final Urine, Random 11/18/17 04:12 Influenza Types A,B Direct FA (JOSE) - Final Mucosa - Nose Laboratory Tests Past 24 Hrs 11/19/17 11/19/17 06:40 06:40 WBC 14.6 H RBC 4.39 Hgb 10.6 L Hct 36.0 L MCV 82.0 MCH 24.1 L MCHC 29.4 L RDW 19.9 H RDW Differential 58.7 H Plt Count 293 MPV 8.8 Immature Gran % (Auto) 0.700 Neut % (Auto) 89.3 H Lymph % (Auto) 5.2 L [place] % (Auto) 4.7 Eos % (Auto) 0.0 Baso % (Auto) 0.1 Absolute Neuts (auto) 13.0 H Absolute Lymphs (auto) 0.76 L Total Counted Not Reportable Sodium 143 Potassium 4.8 Chloride 111 H Carbon Dioxide 23.0 Anion Gap 9 BUN 25 H Creatinine 0.83 Estim Creat Clear Calc 45.61 Est GFR (MDRD) Af Amer 86 Est GFR (MDRD) Non-Af 71 BUN/Creatinine Ratio 30.0 H Glucose 157 H Calcium 8.7 Medical Necessity - Tobacco Use Smoking Status: Current every day smoker Assessment/Plan All Active Problems (Last Reviewed 11/18/17 @ 10:37 by Omer Hoffman MD) Community acquired pneumonia (Acute) Sepsis (Acute) History of cholecystectomy (Resolved) History of section (Resolved) H/O bariatric surgery (Resolved) Pneumonia (Acute) Syncope (Resolved) Abdominal pain (Resolved) Septic shock (Resolved) 1. Acute sepsis 2/2 Right sided CAP - suspect streptococcal - improving gradually. WBC improved. Afebrile. Lactate resolved. Sputum cx neg, urine ag neg, blood cx pending, flu neg. No hemoptysis today. 2. Short run of vtach on monitor - will maintain tele. If continues will consider beta eufemia therapy. 3. Acute COPD exacerbation - steroids, aerosols. 4. tobacco abuse - patch 5. JESSICA - formerly on cpap, no longer 2/2 noncompliance 6. HTN - stable 7. HLD - statin 8. CAD - hold plavix. continue statin. 9. GERD - ppi 10. Anxiety - home meds. 10. morbid obesity complicating #1/4 DVT ppx: hemoptysis, scds only DC planning: follow cultures. pt,ot. May need home o2. This patient was seen by Saul Tarango PA-C under the supervision of Doctor Alex. <Tee Johnson - Last Filed: 11/19/17 13:50> Subjective: Breathing better. Still coughing, but non-productive. No hemoptysis. - Physical Exam General: Alert, Cooperative HEENT: Atraumatic, Normocephalic Oral: Moist Mucosa, No Gingival or Mucosal Lesions/ Ulcerations Lungs: Diminished, Wheezes Cardiovascular: Regular rate, Regular Rhythm, Normal S1, Normal S2, No murmurs Abdomen: Bowel Sounds Present, Soft, Non Tender, Non-Distended Vital Signs Temp Pulse Resp BP Pulse Ox 36.6 C 122 H 16 141/71 H 84 11/19/17 05:23 11/19/17 12:51 11/19/17 11:06 11/19/17 05:23 11/19/17 07:01 Oxygen Flow Rate (L/min) 4 Oxygen Delivery Method Nasal Cannula Weight: 125.5 kg Body Mass Index (BMI) 50.5 Intake and Output for Last 24 Hours 11/17/17 11/18/17 11/19/17 23:59 23:59 23:59 Intake Total 2589 / 2589 391 / 391 Output Total 300 / 300 Balance 2289 / 2289 391 / 391 Microbiology Past 72 Hours 11/18/17 08:25 Gram Stain - Final Sputum, Expectorated/Coughed Respiratory Culture - Preliminary Appears to be normal respiratory christian. Further studies to follow. 11/18/17 07:35 Legionella Antigen - Final Urine, Random 11/18/17 07:35 Streptococcus pneumoniae Antigen (M - Final Urine, Random 11/18/17 04:12 Influenza Types A,B Direct FA (JOSE) - Final Mucosa - Nose Laboratory Tests Past 24 Hrs 11/19/17 11/19/17 06:40 06:40 WBC 14.6 H RBC 4.39 Hgb 10.6 L Hct 36.0 L MCV 82.0 MCH 24.1 L MCHC 29.4 L RDW 19.9 H RDW Differential 58.7 H Plt Count 293 MPV 8.8 Immature Gran % (Auto) 0.700 Neut % (Auto) 89.3 H Lymph % (Auto) 5.2 L [place] % (Auto) 4.7 Eos % (Auto) 0.0 Baso % (Auto) 0.1 Absolute Neuts (auto) 13.0 H Absolute Lymphs (auto) 0.76 L Total Counted Not Reportable Sodium 143 Potassium 4.8 Chloride 111 H Carbon Dioxide 23.0 Anion Gap 9 BUN 25 H Creatinine 0.83 Estim Creat Clear Calc 45.61 Est GFR (MDRD) Af Amer 86 Est GFR (MDRD) Non-Af 71 BUN/Creatinine Ratio 30.0 H Glucose 157 H Calcium 8.7 Assessment/Plan Patient seen and examined independently. Data reviewed. I agree with the above note by the physician housekeeper and laundry assistant. 1. Severe Sepsis Secondary to pneumonia Present on admission resolved 2. Suspected pneumococcal pneumonia Strep antigen, Legionella antigen and. Sputum and blood culture pending. Continue with Levaquin Pulm toilet 3. Acute COPD exacerbation Continue with bronchodilators and steroids Patient still actively smoking. 4. Hemoptysis Resolved Continue to monitor If recurs consider consultation to pulmonology. probably 2/2 pneumonia 5. Disposition: pt not ready today. hopefully may be ready in next 24-48h will need an ambulatory pulse ox on discharge will not require therapy services ([facility], [facility]) upon discharge. Code Visit Inpatient E&M: 41995 Subs Hosp L2
[2017-11-19] MEDS: Atorvastatin Calcium 40 MG Tablet PO (20:43)
[2017-11-19] MEDS: 0.9% NaCl Peripheral Flush Adult/Peds IV (20:43)
[2017-11-19] MEDS: Montelukast 10 MG Tablet PO (20:43)
[2017-11-20] VITALS (19 sets, daily range): BP systolic 124–160; BP diastolic 59–84; PULSE 74–96; RESP 16–22; TEMP 36.6–37.5; O2SAT 89–95
[2017-11-20] MEDS: Pramipexole Di-HCl 1 MG Tablet PO ×2 (00:06→18:52)
[2017-11-20] MEDS: LORazepam 0.5 MG Tablet PO ×2 (00:16→21:46)
[2017-11-20] MEDS: Ipratropium/Albuterol Sulfate 3 ML AMPUL.NEB INHALATION ×6 (03:35→23:07)
[2017-11-20] MEDS: 0.9% NaCl Peripheral Flush Adult/Peds IV ×3 (05:55→21:47)
[2017-11-20 08:19] LABS: Absolute Lymphocyte Count 1.06 X10^3/ul (0.83-4.51); Absolute Neutrophil Count 14.6 X10^3/uL (2.0-7.7); Basophil# 0.02 X10^3/uL; Basophil% 0.1 % (0-1); Hematocrit 36.7 % (37-47); Lymphocyte # 1.06 X10^3/ul (4.0); Lymphocyte % 6.2 % (19-41); Mean Corpuscular Hgb 24.4 pg (27.0-32.0); Mean Corpuscular Volume 81.4 fL (81-99); Mean Platelet Vol. 8.9 fl (6.2-12.0); Monocyte# 1.12 X10^3/uL; Monocyte% 6.6 % (0-10); Neutrophil % 85.6 % (47-70); POSITIVE COUNT NO; POSITIVE DIFFERENTIAL NO; POSITIVE MORPHOLOGY YES; Platelet Count 343 K/mm3 (150-450); RBC Distribution Width CV 20.3 % (11.6-14.6); RBC Distribution Width SD 58.9 fl (35.1-43.9); Red Blood Count 4.51 M/mm3 (4.2-5.4); White Blood Count 17.1 K/mm3 (4.4-11.0)
[2017-11-20 08:20] LABS: Differential Indicated SCAN CRITERIA MET
[2017-11-20 08:47] LABS: Anisocytosis RARE
[2017-11-20] MEDS: Pantoprazole Sodium 40 MG Tablet PO (10:17)
[2017-11-20] MEDS: Ferrous Gluconate 325 MG Tablet PO ×2 (10:17→16:15)
[2017-11-20] MEDS: Citalopram 20 MG Tablet PO (10:17)
[2017-11-20] MEDS: Tolterodine Tartrate 4 MG CAP.SA PO (10:17)
[2017-11-20] MEDS: guaiFENesin 1,200 MG Tablet 1200 MG PO ×2 (10:17→21:46)
--- NOTE | 2017-11-20 12:37 | PCM.PROGNOTE ---
<Saul Tarango - Last Filed: 11/20/17 12:37> Patient Problems: Active and Suspected Problems (Last Reviewed 11/18/17 @ 10:37 by Omer Hoffman MD) Community acquired pneumonia (Acute) Sepsis (Acute) - Physical Exam General: Alert, Oriented x3, Cooperative HEENT: Atraumatic, PERRLA, EOMI, Normocephalic Neck: Supple, No JVD, Negative Carotid Bruits Lungs: Diminished, Wheezes Cardiovascular: Regular rate, No murmurs Abdomen: Bowel Sounds Present, Soft, Non Tender Extremities: No edema, Capillary Refill Less than 3 Seconds Skin: No rashes, No breakdown Musculoskeletal: No Tenderness to Palpation of Joints or Extremities Neurological: Cranial nerves II-XII grossly intact Psych/Mental Status: Normal Affect, Appropriate, Alert and oriented to time, place, person, mood and affect Vital Signs Temp Pulse Resp BP Pulse Ox 98.1 F 96 16 160/79 H 89 11/20/17 09:40 11/20/17 11:24 11/20/17 10:56 11/20/17 09:40 11/20/17 10:33 Oxygen Flow Rate (L/min) 4 Oxygen Delivery Method Nasal Cannula Weight: 276 lb 10.882 oz Body Mass Index (BMI) 50.5 Intake and Output for Last 24 Hours 11/18/17 11/19/17 11/20/17 23:59 23:59 23:59 Intake Total 2589 / 2589 823 / 823 500 / 500 Output Total 300 / 300 Balance 2289 / 2289 823 / 823 500 / 500 Microbiology Past 72 Hours 11/18/17 08:25 Gram Stain - Final Sputum, Expectorated/Coughed Respiratory Culture - Final Mixed normal respiratory christian. No Haemophilus, Streptococcus pneumoniae, beta-hemolytic Streptococcus or Staphylococcus aureus isolated. 11/18/17 07:35 Legionella Antigen - Final Urine, Random 11/18/17 07:35 Streptococcus pneumoniae Antigen (M - Final Urine, Random 11/18/17 04:12 Influenza Types A,B Direct FA (JOSE) - Final Mucosa - Nose Laboratory Tests Past 24 Hrs 11/20/17 08:00 WBC 17.1 H RBC 4.51 Hgb 11.0 L Hct 36.7 L MCV 81.4 MCH 24.4 L MCHC 30.0 L RDW 20.3 H RDW Differential 58.9 H Plt Count 343 MPV 8.9 Immature Gran % (Auto) 1.500 H Neut % (Auto) 85.6 H Lymph % (Auto) 6.2 L Cocke % (Auto) 6.6 Eos % (Auto) 0.0 Baso % (Auto) 0.1 Absolute Neuts (auto) 14.6 H Absolute Lymphs (auto) 1.06 Total Counted Not Reportable Anisocytosis RARE Medical Necessity - Tobacco Use Smoking Status: Current every day smoker Assessment/Plan All Active Problems (Last Reviewed 11/18/17 @ 10:37 by Omer Hoffman MD) Community acquired pneumonia (Acute) Sepsis (Acute) History of cholecystectomy (Resolved) History of section (Resolved) H/O bariatric surgery (Resolved) Pneumonia (Acute) Syncope (Resolved) Abdominal pain (Resolved) Septic shock (Resolved) 1. Acute sepsis 2/2 Right sided CAP - suspect streptococcal - improving gradually. cultures negative. Continue levaquin. No further hemoptysis. 2. Short run of vtach on monitor - no further episodes. will maintain tele. If continues will consider beta eufemia therapy. 3. Acute COPD exacerbation - steroids, aerosols. Wheezing. 4. tobacco abuse - patch 5. JESSICA - formerly on cpap, no longer 2/2 noncompliance 6. HTN - stable 7. HLD - statin 8. CAD - hold plavix. continue statin. 9. GERD - ppi 10. Anxiety - home meds. 10. morbid obesity complicating #1/4 DVT ppx: hemoptysis, scds only. DC planning: uses prn home o2, will likely need all day o2 at discharge. This patient was seen by Saul Tarango PA-C under the supervision of Doctor Johnson. <Tee Johnson - Last Filed: 11/20/17 13:37> Subjective: still short of breath, but overall breathing better. - Physical Exam General: Alert, Cooperative, - - no resp distress. no conversational dyspnea. HEENT: Atraumatic, Normocephalic Neck: No Nuchal Rigidity, Thyroid Normal Size and Texture Lungs: Diminished, Wheezes Cardiovascular: Regular rate, Regular Rhythm, Normal S1, Normal S2, No murmurs Abdomen: Bowel Sounds Present, Soft, Non Tender, Non-Distended Extremities: No edema, No Calf Tenderness Skin: No rashes, No breakdown Psych/Mental Status: Normal Affect, Appropriate Vital Signs Temp Pulse Resp BP Pulse Ox 36.7 C 96 16 160/79 H 89 11/20/17 09:40 11/20/17 11:24 11/20/17 10:56 11/20/17 09:40 11/20/17 10:33 Oxygen Flow Rate (L/min) 4 Oxygen Delivery Method Nasal Cannula Weight: 125.5 kg Body Mass Index (BMI) 50.5 Intake and Output for Last 24 Hours 11/18/17 11/19/17 11/20/17 23:59 23:59 23:59 Intake Total 2589 / 2589 823 / 823 500 / 500 Output Total 300 / 300 Balance 2289 / 2289 823 / 823 500 / 500 Microbiology Past 72 Hours 11/18/17 08:25 Gram Stain - Final Sputum, Expectorated/Coughed Respiratory Culture - Final Mixed normal respiratory christian. No Haemophilus, Streptococcus pneumoniae, beta-hemolytic Streptococcus or Staphylococcus aureus isolated. 11/18/17 07:35 Legionella Antigen - Final Urine, Random 11/18/17 07:35 Streptococcus pneumoniae Antigen (M - Final Urine, Random 11/18/17 04:12 Influenza Types A,B Direct FA (JOSE) - Final Mucosa - Nose Laboratory Tests Past 24 Hrs 11/20/17 08:00 WBC 17.1 H RBC 4.51 Hgb 11.0 L Hct 36.7 L MCV 81.4 MCH 24.4 L MCHC 30.0 L RDW 20.3 H RDW Differential 58.9 H Plt Count 343 MPV 8.9 Immature Gran % (Auto) 1.500 H Neut % (Auto) 85.6 H Lymph % (Auto) 6.2 L Cocke % (Auto) 6.6 Eos % (Auto) 0.0 Baso % (Auto) 0.1 Absolute Neuts (auto) 14.6 H Absolute Lymphs (auto) 1.06 Total Counted Not Reportable Anisocytosis RARE Assessment/Plan Patient seen and examined independently. Data reviewed. I agree with the above note by the physician financial legal assistant. 1. Severe Sepsis Secondary to pneumonia Present on admission resolved 2. Suspected pneumococcal pneumonia Strep antigen, Legionella antigen and. Sputum negative. Continue with Levaquin Pulm toilet 3. Acute COPD exacerbation Continue with bronchodilators and steroids Patient still actively smoking. 4. Hemoptysis Resolved Continue to monitor If recurs consider consultation to pulmonology. probably 2/2 pneumonia 5. Disposition: pt not ready today. hopefully may be ready in next 24-48h will need an ambulatory pulse ox on discharge will not require therapy services (HHC, SNF) upon discharge. Code Visit Inpatient E&M: [id number] Subs Hosp L2
[2017-11-20] MEDS: Fluticasone 0.05% 1 SPRAY NASAL.SRY 2 SPRAY NASAL (18:53)
[2017-11-20] MEDS: Montelukast 10 MG Tablet PO (21:46)
[2017-11-20] MEDS: Atorvastatin Calcium 40 MG Tablet PO (21:46)
[2017-11-21] VITALS (16 sets, daily range): BP systolic 122–182; BP diastolic 68–88; PULSE 79–96; RESP 16–22; TEMP 36.6–36.8; O2SAT 92–96
[2017-11-21] MEDS: Magnesium Hydroxide 30 ML UDC PO (02:52)
[2017-11-21] MEDS: 0.9% NaCl Peripheral Flush Adult/Peds IV ×3 (05:39→22:12)
[2017-11-21] MEDS: Bisacodyl 5 MG Tablet PO (06:37)
--- NOTE | 2017-11-21 09:27 | PCM.PROGNOTE ---
<Saul Tarango - Last Filed: 11/21/17 09:27> Patient Problems: Active and Suspected Problems (Last Reviewed 11/18/17 @ 10:37 by Omer Hoffman MD) Community acquired pneumonia (Acute) Sepsis (Acute) Subjective: Breathing mildly improved. Still wheezy, requiring 24 hour o2. Last night diffuse anterior abdominal pain worst over incision scar /10, now 6/10. Last BM 2 days ago - liquid. No fever or chills. No nausea/vomiting yet. - Physical Exam General: Alert, Oriented x3, Cooperative HEENT: Atraumatic, PERRLA, EOMI, Normocephalic Neck: Supple, No JVD, Negative Carotid Bruits Lungs: Wheezes Cardiovascular: Regular rate, No murmurs Abdomen: Soft, Tender - diffuse, however worst over ventral hernia, lump palpable. Extremities: No edema, Capillary Refill Less than 3 Seconds Skin: No rashes, No breakdown Musculoskeletal: No Tenderness to Palpation of Joints or Extremities Neurological: Cranial nerves II-XII grossly intact Psych/Mental Status: Normal Affect, Appropriate, Alert and oriented to time, place, person, mood and affect Vital Signs Temp Pulse Resp BP Pulse Ox 98.1 F 82 18 165/84 H 95 11/21/17 03:50 11/21/17 06:54 11/21/17 03:50 11/21/17 03:50 11/21/17 07:57 Oxygen Flow Rate (L/min) 3 Oxygen Delivery Method Nasal Cannula Weight: 276 lb 10.882 oz Body Mass Index (BMI) 50.5 Intake and Output for Last 24 Hours 11/19/17 11/20/17 11/21/17 23:59 23:59 23:59 Intake Total 823 / 823 1580 / 1580 720 / 720 Balance 823 / 823 1580 / 1580 720 / 720 Microbiology Past 72 Hours 11/18/17 08:25 Gram Stain - Final Sputum, Expectorated/Coughed Respiratory Culture - Final Mixed normal respiratory christian. No Haemophilus, Streptococcus pneumoniae, beta-hemolytic Streptococcus or Staphylococcus aureus isolated. 11/18/17 07:35 Legionella Antigen - Final Urine, Random 11/18/17 07:35 Streptococcus pneumoniae Antigen (M - Final Urine, Random 11/18/17 04:12 Influenza Types A,B Direct FA (JOSE) - Final Mucosa - Nose Medical Necessity - Tobacco Use Smoking Status: Current every day smoker Assessment/Plan All Active Problems (Last Reviewed 11/18/17 @ 10:37 by Omer Hoffman MD) Community acquired pneumonia (Acute) Sepsis (Acute) History of cholecystectomy (Resolved) History of section (Resolved) H/O bariatric surgery (Resolved) Pneumonia (Acute) Syncope (Resolved) Abdominal pain (Resolved) Septic shock (Resolved) 1. Acute sepsis 2/2 Right sided CAP - suspect streptococcal - improving gradually. cultures negative. Continue levaquin. No further hemoptysis. 2. Incarcerated ventral hernia - consult surgery. Follows Dr. Raya. Gastric bypass 15 years ago at [facility] with Dr. Saunders, also prior GB surgery x2, C section. Constipation with stercoral colitis. 3. Short run of vtach on monitor - self limited. has not recurred. 4. Acute COPD exacerbation - continue current therapy, still very wheezy. 5. tobacco abuse - patch 6. JESSICA - formerly on cpap, no longer 2/2 noncompliance 7. HTN - stable 8. HLD - statin 9. CAD - hold plavix. continue statin. 10. GERD - ppi 11. Anxiety - home meds. 12. morbid obesity - complicating above. as noted above prior gastric bypass. DVT ppx: SCDs DC planning: pna/copd improving, however now with incarcerated hernia This patient was seen by Saul Tarango PA-C under the supervision of Doctor Yusef. <Casey Holbrook - Last Filed: 11/21/17 11:04> - Physical Exam Vital Signs Temp Pulse Resp BP Pulse Ox 98.0 F 79 16 182/88 H 94 11/21/17 09:50 11/21/17 09:50 11/21/17 09:50 11/21/17 09:50 11/21/17 09:50 Oxygen Flow Rate (L/min) 3 Oxygen Delivery Method Nasal Cannula Weight: 125.5 kg Body Mass Index (BMI) 50.5 Intake and Output for Last 24 Hours 11/19/17 11/20/17 11/21/17 23:59 23:59 23:59 Intake Total 823 / 823 1580 / 1580 720 / 720 Balance 823 / 823 1580 / 1580 720 / 720 Microbiology Past 72 Hours 11/18/17 08:25 Gram Stain - Final Sputum, Expectorated/Coughed Respiratory Culture - Final Mixed normal respiratory christian. No Haemophilus, Streptococcus pneumoniae, beta-hemolytic Streptococcus or Staphylococcus aureus isolated. 11/18/17 07:35 Legionella Antigen - Final Urine, Random 11/18/17 07:35 Streptococcus pneumoniae Antigen (M - Final Urine, Random 11/18/17 04:12 Influenza Types A,B Direct FA (JOSE) - Final Mucosa - Nose Assessment/Plan This patient was seen in conjunction with Saul Tarango PA-C. I have independently interviewed and examined the patient and reviewed pertinent historical, laboratory, and other data. Please refer to Saul Tarango PA-C note for details of this patient's presentation, findings, and recommendations. I have reviewed Saul Tarango PA-C note and concur with documented findings. In brief, patient is a 77-year-old lady admitted with sepsis secondary to suspected streptococcal community-acquired pneumonia managed with Levaquin. Patient did experience abdominal distention CT obtained was questionable for possible incarcerated ventral hernia for which consultation was placed to general surgery Physical Examination: GENERAL: Some dyspnea at rest HEENT: Clear conjunctiva, moist oral mucosa NECK; supple, normal thyroid, no distended JVD. CHEST: Diminished to auscultation bilaterally, HEART: Regular S1 S2, no audible murmurs ABDOMEN: Distended with a ventral hernia RECTAL: deferred EXTREMITIES: No edema, no clubbing, no cyanosis. STATE INSPECTOR: Awake; no lateralizing signs. Assessment: 1. Sepsis secondary to community-acquired pneumonia with suspected streptococcal pneumonia 2. Ventral hernia with suspected incarceration 3. History of gastric bypass 4. COPD with acute exacerbation 5. Obstipation treated symptomatically 6. Tobacco dependence counseled on cessation, offered nicotine patch for tobacco cravings 7. Morbid obesity with BMI of 50.6 8. Essential hypertension 9. Dyslipidemia 10. Obstructive sleep apnea 11. GERD 12. CAD 13. Anxiety disorder 14. DVT prophylaxis SC heparin 15. Atelectasis did encourage the use of incentive spirometry Recommendations: 1. I have discussed the results of my overview and impressions with the patient 2. Options for management were reviewed Clinical Impression(s) from Imaging Studies Chest X-Ray 11/18/17 00:15 IMPRESSION: Cardiomegaly. Mild vascular congestion/edema. Asymmetric opacity within the right mid to lower lung zone. This could represent asymmetric edema however atelectasis and/or pneumonia cannot be totally excluded. Recommend clinical correlation and follow-up imaging to resolution. Electronically Signed: Manny Glez, at 1:55 EDT Tel , Service support , Abdomen/Pelvis CT 11/21/17 06:47 IMPRESSION: 1. Dilatation of the ascending colon and hepatic flexure of the colon with a large amount of stool suggesting possible sequela of a cecal bascule and/or stercoral colitis. 2. Small ventral hernia with possible incarcerated colon. 3. Sequela of gastric bypass surgery. 4. Right-sided renal cyst. Electronically Signed: Maru Pillai MD at 7:48 EDT , Service support , Active Medications Acetaminophen (Tylenol) 650 mg PO Q4H PRN PRN PRN Reason: PAIN Albuterol Sulfate (Ventolin Aerosols) 2.5 mg INHALATION Q2H PRN PRN PRN Reason: SHORTNESS OF BREATH Last Admin: 11/19/17 02:24 Dose: 2.5 mg Albuterol/Ipratropium (Duoneb) 3 ml INHALATION Q4H.RT [facility] Last Admin: 11/21/17 07:05 Dose: Not Given Atorvastatin Calcium (Lipitor) 40 mg PO QHS [facility] Last Admin: 11/20/17 21:46 Dose: 40 mg Bisacodyl (Dulcolax) 5 mg PO DAILY PRN PRN PRN Reason: Constipation Last Admin: 11/21/17 06:37 Dose: 5 mg Bisacodyl (Dulcolax) 10 mg RECTAL X1 ONE Stop: 11/21/17 11:16 Citalopram Hydrobromide (Celexa) 20 mg PO DAILY [facility] Last Admin: 11/20/17 10:17 Dose: 20 mg Ferrous Gluconate (Ferrous Gluconate) 325 mg PO BIDCM [facility] Last Admin: 11/20/17 16:15 Dose: 325 mg Fluticasone Propionate (Flonase Nasal [place]) 2 spray NASAL DAILY PRN PRN Reason: Nasal Congestion Last Admin: 11/20/17 18:53 Dose: 2 spray Guaifenesin (Mucinex) 1,200 mg PO BID [facility] Last Admin: 11/20/17 21:46 Dose: 1,200 mg Levofloxacin (Levaquin Iv) 750 mg in 150 mls @ 100 mls/hr IV Q48 [facility] Last Admin: 11/21/17 10:10 Dose: 100 mls/hr Lorazepam (Ativan) 0.5 mg IV Q6H PRN PRN PRN Reason: ANXIETY Last Admin: 11/18/17 15:00 Dose: 0.5 mg Lorazepam (Ativan) 0.5 mg PO QHS PRN PRN PRN Reason: ANXIETY Last Admin: 11/20/17 21:46 Dose: 0.5 mg Magnesium Citrate (Citrate Of Magnesia) 300 ml PO X1 ONE Stop: 11/21/17 12:01 Magnesium Hydroxide (Milk Of Magnesia) 30 ml PO DAILY PRN PRN Reason: Constipation Last Admin: 11/21/17 02:52 Dose: 30 ml Methylprednisolone (Solu-Medrol) 40 mg IV Q8 [facility] Last Admin: 11/21/17 05:39 Dose: 40 mg Montelukast Sodium (Singulair) 10 mg PO QHS [facility] Last Admin: 11/20/17 21:46 Dose: 10 mg Morphine Sulfate () 1 mg IV Q2H PRN PRN PRN Reason: SEVERE PAIN (6-10/10) Nicotine (Nicoderm Cq (Pbkc)) 21 mg TRANSDERM. DAILY [facility] Last Admin: 11/21/17 10:18 Dose: 21 mg Ondansetron HCl (Zofran) 4 mg IV Q8H PRN PRN PRN Reason: Nausea Pantoprazole Sodium (Protonix) 40 mg PO DAILY [facility] Last Admin: 11/20/17 10:17 Dose: 40 mg Pramipexole Dihydrochloride (Mirapex) 1 mg PO TID PRN PRN PRN Reason: RESTLESS LEG Last Admin: 11/20/17 18:52 Dose: 1 mg Tolterodine Tartrate (Detrol La) 4 mg PO DAILY [facility] Last Admin: 11/20/17 10:17 Dose: 4 mg Code Visit Inpatient E&M: [id number] [facility] Hosp
[2017-11-21] MEDS: levoFLOXacin IV 750 MG/150 ML BAG 100 MG IV (10:10)
--- NOTE | 2017-11-21 11:12 | PCM.CONS.GEN ---
Problem List (1) Abdominal pain Status: Acute Qualifiers: Abdominal location: generalized Qualified Code(s): R10.84 - Generalized abdominal pain (2) Incisional hernia Status: Acute Qualifiers: Obstruction and gangrene presence: without obstruction or gangrene Qualified Code(s): K43.2 - Incisional hernia without obstruction or gangrene; K43.91 - Incisional hernia, without obstruction or gangrene Reason for Consult Date of Consultation: 11/21/17 History of Present Illness: The patient is a 77 year old F who was admitted to [facility] being treated for pneumonia. She has a known incisional hernia and last night started to develop some abdominal pain a CAT scan was ordered which showed dilatation of the ascending colon and transverse colon. Her last bowel movement was 2 days ago. At the present time she is not complaining of any abdominal pain and she is able to sit and stand on her own at the side of the bed in a reclining chair. Past Medical History Past Medical History (Chronic Problems): Chronic Problems (Last Reviewed 11/18/17 @ 10:37 by Omer Hoffman MD) Carotid artery stenosis (Chronic) History of coronary artery stent placement (Chronic ~03/22/13) [id number] RCA [id number] RCA 2000 and 2002 Atherosclerosis of coronary artery of [place] heart without angina pectoris (Chronic) [id number] RCA 03/22/13 [id number] RCA 2000 and 2002 Chronic hypoxemic respiratory failure (Chronic) Stage 2 moderate COPD by GOLD classification (Chronic) VBI (vertebrobasilar insufficiency) (Chronic) Asthma (Chronic) HTN (hypertension) (Chronic) Hyperlipemia (Chronic) Tobacco abuse (Chronic) Obesities, morbid (Chronic) History of COPD (Chronic) History of diabetes mellitus, type II (Chronic) History of gastroesophageal reflux (GERD) (Chronic) Obstructive sleep apnea (Chronic) Medical History: Medical History (Last Reviewed 11/21/17 @ 11:31 by Stephon Banda MD) Carotid artery stenosis (Chronic) I65.29 Atherosclerosis of coronary artery of [place] heart without angina pectoris (Chronic) I25.10 [id number] RCA 03/22/13 [id number] RCA 2000 and 2002 Asthma (Chronic) J45.909 HTN (hypertension) (Chronic) I10 Hyperlipemia (Chronic) E78.5 Tobacco abuse (Chronic) Z72.0 Obesities, morbid (Chronic) E66.01 History of COPD (Chronic) Z87.09 History of diabetes mellitus, type II (Chronic) Z86.39 History of gastroesophageal reflux (GERD) (Chronic) Z87.19 Obstructive sleep apnea (Chronic) G47.33 Pneumonia (Acute) J18.9 Bradycardia (Inactive) R00.1 Syncope (Resolved) R55 Stenosis of left subclavian artery Onset Date: ~03/2017 I77.1 stent the left subclavian with a 7 x 39 [place] Abdominal pain (Resolved) R10.9 Septic shock (Resolved) A41.9, R65.21 Allergies aspirin [ASA] Allergy (Severe, Verified 11/17/17 23:14) Hives bupropion [From Wellbutrin] Allergy (Verified 11/17/17 23:14) Unknown codeine Allergy (Verified 11/17/17 23:14) Unknown meperidine HCl [From Demerol] Allergy (Verified 11/17/17 23:14) Hives naproxen sodium [From Anaprox] Allergy (Verified 11/17/17 23:14) Unknown Penicillins [PCN] Allergy (Verified 11/17/17 23:14) Unknown propoxyphene HCl [From Darvon] Allergy (Verified 11/17/17 23:14) Hives Sulfa (Sulfonamide Antibiotics) Allergy (Verified 11/17/17 23:14) Unknown NSAIDS (Non-Steroidal Anti-Inflamma Adverse Reaction (Verified 11/17/17 23:14) Other Home Medications: Ambulatory Orders Medication Instructions Recorded Budesonide/Formoterol 80-4.5 2 puff INHALATION BID 02/28/13 [Symbicort 80-4.5 Mcg Inhaler] Citalopram [Celexa] 20 mg PO DAILY 02/28/13 Fluticasone 0.05% [Flonase Nasal 2 spray NASAL DAILY PRN 02/28/13 [place]] Hydrocodone/Acetaminophen [Vicodin 1 tab PO BID PRN PRN 02/28/13 5-300 mg Tablet] Omeprazole [Prilosec] 40 mg PO DAILY 02/28/13 Clopidogrel Bisulfate [Plavix] 75 mg PO DAILY 07/08/14 Montelukast [Singulair] 10 mg PO QHS 07/08/14 Albuterol IH (ProAir) [Proair Hfa] 2 puff INHALATION Q6H PRN PRN 07/15/14 Pramipexole Di-HCl [Mirapex] 1 mg PO TID PRN 09/19/16 Atorvastatin Calcium [Lipitor] 40 mg PO QHS #30 tab 10/03/16 Furosemide [Lasix] 20 mg PO DAILY PRN 11/01/16 Lorazepam [Ativan] 0.5 mg PO QHS PRN PRN 11/01/16 nitroglycerin 0.4 mg sublingual 0.4 mg SUBLINGUAL Q5M PRN #25 tab 03/21/17 tablet Cholecalciferol (Vitamin D3) 50,000 unit PO 11/18/17 [Vitamin D] Ferrous Gluconate 325 mg PO BIDCM 11/18/17 Tolterodine Tartrate [Detrol LA] 4 mg PO DAILY 11/18/17 Surgical History: Surgical History (Last Reviewed 11/21/17 @ 11:31 by Stephon Banda MD) History of coronary artery stent placement (Chronic) Onset Date: ~03/22/13 Z95.5 [id number] RCA [id number] RCA 2000 and 2002 History of cholecystectomy (Resolved) Z98.890, Z90.49 History of section (Resolved) Z98.891 H/O bariatric surgery (Resolved) Z98.84 History of right knee joint replacement Z96.651 History of right-sided carotid endarterectomy Onset Date: ~07/2014 Z98.890 left subclavian artery stent Onset Date: ~03/2017 Surgical History: angioplasty, - - 3 heart stents, bariatric surgery and , carotid endarterectemy Psychiatric History: No pertinent psych hx Smoking Status: Current every day smoker Alcohol: None - *Family History Maternal Family History: Family History (Last Reviewed 05/19/17 @ 13:47 by Sayda Larson) Mother CVA (cerebral vascular accident) Father Asthma Hypertension High blood cholesterol level Arthritis History Items: No pertinent history Review of Systems Cardiovascular: Denies: Chest Pain Respiratory: Reports: Shortness of Breath Gastrointestinal: Reports: Abdominal Pain, Constipation, Nausea Genitourinary: Denies: Dysuria Patient Problems: Active and Suspected Problems (Last Reviewed 11/18/17 @ 10:37 by Omer Hoffman MD) Community acquired pneumonia (Acute) Sepsis (Acute) Abdominal pain (Acute) Incisional hernia (Acute) - Physical Exam Lungs: Wheezes Cardiovascular: Regular rate, Regular Rhythm, No murmurs Abdomen: Soft, Obese, - - Her hernia is easily reducible. She has no rebound guarding or peritoneal signs. Vital Signs Temp Pulse Resp BP Pulse Ox 98.0 F 79 16 182/88 H 94 11/21/17 09:50 11/21/17 09:50 11/21/17 09:50 11/21/17 09:50 11/21/17 09:50 Oxygen Flow Rate (L/min) 3 Oxygen Delivery Method Nasal Cannula Weight: 276 lb 10.882 oz Body Mass Index (BMI) 50.5 Intake and Output for Last 24 Hours 11/19/17 11/20/17 11/21/17 23:59 23:59 23:59 Intake Total 823 / 823 1580 / 1580 720 / 720 Balance 823 / 823 1580 / 1580 720 / 720 Microbiology Past 72 Hours 11/18/17 08:25 Gram Stain - Final Sputum, Expectorated/Coughed Respiratory Culture - Final Mixed normal respiratory christian. No Haemophilus, Streptococcus pneumoniae, beta-hemolytic Streptococcus or Staphylococcus aureus isolated. 11/18/17 07:35 Legionella Antigen - Final Urine, Random 11/18/17 07:35 Streptococcus pneumoniae Antigen (M - Final Urine, Random Assessment/Plan All Active Problems (Last Reviewed 11/18/17 @ 10:37 by Omer Hoffman MD) Community acquired pneumonia (Acute) Sepsis (Acute) Abdominal pain (Acute) Incisional hernia (Acute) History of cholecystectomy (Resolved) History of section (Resolved) H/O bariatric surgery (Resolved) Pneumonia (Acute) Syncope (Resolved) Abdominal pain (Resolved) Septic shock (Resolved) Assessment is incisional hernia Plan at this point I do not think that we are dealing with any acute surgical needs her abdomen is quite soft. She is not a good surgical candidate whatsoever. Would add stool softeners and encourage ambulation and chewing gum at this time.
[2017-11-21] MEDS: Ipratropium/Albuterol Sulfate 3 ML AMPUL.NEB INHALATION ×4 (11:16→22:51)
[2017-11-21] MEDS: Morphine 2 MG/ML Syringe 1 MG IV ×2 (11:51→13:57)
[2017-11-21] MEDS: Fluticasone 0.05% 1 SPRAY NASAL.SRY 2 SPRAY NASAL ×2 (11:57→22:09)
[2017-11-21] MEDS: Magnesium Citrate 300 ML PO (13:01)
--- NOTE | 2017-11-21 13:10 | NURSING ---
Warm soap suds enema given to patient at this time. 1000cc instilled into rectum. Patient returned 1000cc brown fluid with small amounts of stool. Magnesium Citrate and Dulcolax suppository given as well. patient tolerated with minimal complaints of discomfort. Denies other needs at this time.
[2017-11-21] MEDS: Bisacodyl 10 MG Suppository RECTAL (13:15)
[2017-11-21] MEDS: Heparin Injection (Vial) 5,000 UNIT/ML VIAL 5000 UNIT SC ×2 (13:57→22:08)
[2017-11-21] MEDS: Pantoprazole Sodium 40 MG Tablet PO (17:08)
[2017-11-21] MEDS: Tolterodine Tartrate 4 MG CAP.SA PO (17:08)
[2017-11-21] MEDS: Citalopram 20 MG Tablet PO (17:08)
[2017-11-21] MEDS: Atorvastatin Calcium 40 MG Tablet PO (22:08)
[2017-11-21] MEDS: guaiFENesin 1,200 MG Tablet 1200 MG PO (22:08)
[2017-11-21] MEDS: Montelukast 10 MG Tablet PO (22:08)
[2017-11-21] MEDS: Polyethylene Glycol 3350 17 GM PACKET PO (22:11)
[2017-11-21] MEDS: Pramipexole Di-HCl 1 MG Tablet PO (22:12)
[2017-11-22] VITALS (14 sets, daily range): BP systolic 142–235; BP diastolic 63–108; PULSE 68–92; RESP 16–22; TEMP 36.6–37; O2SAT 94–96
[2017-11-22] MEDS: Heparin Injection (Vial) 5,000 UNIT/ML VIAL 5000 UNIT SC ×2 (05:07→15:31)
[2017-11-22] MEDS: Ondansetron 4 MG/2 ML Vial IV ×2 (06:40→10:26)
--- NOTE | 2017-11-22 06:45 | PN.SURG_ITS ---
Patient Problems: Active and Suspected Problems (Last Reviewed 11/21/17 @ 11:31 by Stephon Banda MD) Community acquired pneumonia (Acute) Sepsis (Acute) Abdominal pain (Acute) Incisional hernia (Acute) Subjective: Patient evaluated resting comfortably in the chair. She notes minimal abdominal discomfort. She notes this is no different from the pain/discomfort she normally has at home. She has incisional hernias. She notes she was evaluated by [facility] at one time and noted she was told she was not a good operative candidate. Patient had success with bowel movements overnight and this morning. She notes nausea this morning. - Physical Exam General: Alert, Oriented x3, Cooperative Abdomen: Bowel Sounds Present, Soft, Obese, Tender - minimal generalized tenderness Vital Signs Temp Pulse Resp BP Pulse Ox 98.5 F 81 16 142/73 H 95 11/22/17 04:20 11/22/17 04:20 11/22/17 04:20 11/22/17 04:20 11/22/17 04:20 Oxygen Flow Rate (L/min) 3 Oxygen Delivery Method Nasal Cannula Weight: 276 lb 10.882 oz Body Mass Index (BMI) 50.5 Intake and Output for Last 24 Hours 11/20/17 11/21/17 11/22/17 23:59 23:59 23:59 Intake Total 1580 / 1580 1360 / 1360 360 / 360 Output Total Balance 1580 / 1580 1360 / 1360 359 / 359 Microbiology Past 72 Hours 11/18/17 08:25 Gram Stain - Final Sputum, Expectorated/Coughed Respiratory Culture - Final Mixed normal respiratory christian. No Haemophilus, Streptococcus pneumoniae, beta-hemolytic Streptococcus or Staphylococcus aureus isolated. Medical Necessity - Tobacco Use Smoking Status: Current every day smoker Assessment/Plan All Active Problems (Last Reviewed 11/21/17 @ 11:31 by Stephon Banda MD) Community acquired pneumonia (Acute) Sepsis (Acute) Abdominal pain (Acute) Incisional hernia (Acute) History of cholecystectomy (Resolved) History of section (Resolved) H/O bariatric surgery (Resolved) Pneumonia (Acute) Syncope (Resolved) Abdominal pain (Resolved) Septic shock (Resolved) I am following this patient in conjunction with Dr. Banda Impression: Constipation Resolved with enema and magnesium citrate We will continue to monitor this patient Code Visit Inpatient E&M: 24279 [facility] Hosp L1
[2017-11-22] MEDS: Ipratropium/Albuterol Sulfate 3 ML AMPUL.NEB INHALATION ×2 (06:58→14:49)
[2017-11-22] MEDS: Ferrous Gluconate 325 MG Tablet PO (08:20)
[2017-11-22] MEDS: Acetaminophen 325 MG Tablet 650 MG PO (08:27)
[2017-11-22] MEDS: Morphine 2 MG/ML Syringe 1 MG IV ×2 (09:57→15:30)
[2017-11-22] MEDS: Enalaprilat 1.25 MG/ML Vial IV (10:26)
--- NOTE | 2017-11-22 11:26 | CASEMGMT ---
[facility] to [facility], the following are in-network tertiary facilities: [facility], [facility], [facility], [facility], [facility], [facility], [facility], and . [facility]MONS CM
[2017-11-22] MEDS: amLODIPine 10 MG Tablet PO (11:27)
[2017-11-22 11:46] LABS: Bedside Glucose 137 mg/dL (70-110)
--- NOTE | 2017-11-22 12:40 | PCM.DC ---
- Discharge Diagnoses Current Active Problems: Current Active and Chronic Problems (Last Reviewed 11/21/17 @ 11:31 by Stephon Banda MD) Community acquired pneumonia (Acute) Sepsis (Acute) Abdominal pain (Acute) Incisional hernia (Acute) You will use the following diet at home:: Other - as directed Discharge Activity: - - as directed Additional Instructions: further care as directed by accepting facility Allergies/Adverse Reactions: Allergies aspirin [ASA] Allergy (Severe, Verified 11/17/17 23:14) Hives bupropion [From Wellbutrin] Allergy (Verified 11/17/17 23:14) Unknown codeine Allergy (Verified 11/17/17 23:14) Unknown meperidine HCl [From Demerol] Allergy (Verified 11/17/17 23:14) Hives naproxen sodium [From Anaprox] Allergy (Verified 11/17/17 23:14) Unknown Penicillins [PCN] Allergy (Verified 11/17/17 23:14) Unknown propoxyphene HCl [From Darvon] Allergy (Verified 11/17/17 23:14) Hives Sulfa (Sulfonamide Antibiotics) Allergy (Verified 11/17/17 23:14) Unknown NSAIDS (Non-Steroidal Anti-Inflamma Adverse Reaction (Verified 11/17/17 23:14) Other Medications to take at Discharge Budesonide/Formoterol 80-4.5 [Symbicort 80-4.5 Mcg Inhaler] 2 puff INHALATION BID 02/28/13 Citalopram [Celexa] 20 mg PO DAILY 02/28/13 Fluticasone 0.05% [Flonase Nasal [place]] 2 spray NASAL DAILY PRN 02/28/13 Hydrocodone/Acetaminophen [Vicodin 5-300 mg Tablet] 1 tab PO BID PRN PRN 02/28/13 Omeprazole [Prilosec] 40 mg PO DAILY 02/28/13 Clopidogrel Bisulfate [Plavix] 75 mg PO DAILY 07/08/14 Montelukast [Singulair] 10 mg PO QHS 07/08/14 Albuterol IH (ProAir) [Proair Hfa] 2 puff INHALATION Q6H PRN PRN 07/15/14 Pramipexole Di-HCl [Mirapex] 1 mg PO TID PRN 09/19/16 Atorvastatin Calcium [Lipitor] 40 mg PO QHS #30 tab 10/03/16 Furosemide [Lasix] 20 mg PO DAILY PRN 11/01/16 Lorazepam [Ativan] 0.5 mg PO QHS PRN PRN 11/01/16 nitroglycerin 0.4 mg sublingual tablet 0.4 mg SUBLINGUAL Q5M PRN #25 tab 03/21/17 Cholecalciferol (Vitamin D3) [Vitamin D] 50,000 unit PO 11/18/17 Ferrous Gluconate 325 mg PO BIDCM 11/18/17 Tolterodine Tartrate [Detrol LA] 4 mg PO DAILY 11/18/17 Primary Care Physician: Vicente Raya III, MD [Primary Care Provider] - Please follow up with your Primary Care Physician in: as directed Test Results: Test results from this visit will be discussed in further detail at your follow-up appointment, if applicable. Please Follow Up With: Raj Raya MD - Surgeon When: as directed Please Follow Up With: Tomás Soto DO - assistant administrator When: as directed Proposed Discharge Date: 11/22/17
--- NOTE | 2017-11-22 12:45 | DS.PCM_ITS ---
<Saul Tarango - Last Filed: 11/22/17 12:45> Discharge Date and Diagnosis - Problem List Patient Problems: Active and Suspected Problems (Last Reviewed 11/21/17 @ 11:31 by Stephon Banda MD) Community acquired pneumonia (Acute) Sepsis (Acute) Abdominal pain (Acute) Incisional hernia (Acute) Date of Admission: 11/18/17 Date of Discharge: 11/22/17 - Primary Discharge Diagnosis Active and Suspected Problems (Last Reviewed 11/21/17 @ 11:31 by Stephon Banda MD) Acute sepsis 2/2 CAP suspected streptococcal, with hemoptysis (resolved) Acute COPD exacerbation Chronic hypoxic respiratory failure Acute abdominal pain 2/2 Incarcerated ventral hernia Morbid obesity with prior gastric bypass 15 years ago JESSICA not on CPAP at home HTN HLD CAD with prior stents GERD Anxiety - Secondary Discharge Diagnosis Chronic Problems (Last Reviewed 11/21/17 @ 11:31 by Stephon Banda MD) Carotid artery stenosis (Chronic) History of coronary artery stent placement (Chronic ~03/22/13) [id number] RCA [id number] RCA 2000 and 2002 Atherosclerosis of coronary artery of [place] heart without angina pectoris ( Chronic) [id number] RCA 03/22/13 [id number] RCA 2000 and 2002 Chronic hypoxemic respiratory failure (Chronic) Stage 2 moderate COPD by GOLD classification (Chronic) VBI (vertebrobasilar insufficiency) (Chronic) Asthma (Chronic) HTN (hypertension) (Chronic) Hyperlipemia (Chronic) Tobacco abuse (Chronic) Obesities, morbid (Chronic) History of COPD (Chronic) History of diabetes mellitus, type II (Chronic) History of gastroesophageal reflux (GERD) (Chronic) Obstructive sleep apnea (Chronic) Hospital Course and Treatment Imaging Results: 11/22/17 10:11 Abd Decub and/or Erect(Portabl [RAD] Urgent Consults: Gen surgery - [place] Operations: None Procedures: None Summary of Care Provided: Physical exam on day of discharge: General: Resting comfortably NAD Psych: A/Ox3 normal affect HEENT: [place] AT NC Neck: Supple NT CV: RRR no m/t/r/g/h Resp: diffuse wheezing Abd: diffuse tenderness to light palp, does not appear to be rigid. decreased BS x4, morbidly obese Ext: DP2+= no edema Skin: W/D normal turgor Lymph/Heme: No active bleeding or adenopathy Neuro: CN2-12 intact Hospital course: The patient is a 77 year old F with a past medical history of coronary artery disease with prior stents, COPD, obstructive sleep apnea not on CPAP at home, morbid obesity with Ayanna-en-Y procedure 15 years ago, chronic hypoxic respiratory failure on home O2 as needed who presented to the emergency room with increased shortness of breath and productive cough with hemoptysis. She was found to be septic with evidence of pna, and presumed associated COPD exacerbation. She had RML pneumonia on CXR, tachycardia, leukocytosis, tachypnea. She was placed in the PCU on tele. She was started on levaquin, aerosols, and solumedrol. She remained very wheezy throughout stay and did continue to require 24 hours O2 supplementation. Plavix was held as she had hemoptysis on the first day - this resolved and her Hgb remained stable. Her cough and SOB improved gradually. The day prior to discharge she developed severe 9/10 diffuse crampy abdominal pain. A CT of the abdomen was obtained and demonstrated incarcerated ventral hernia and stercoral colitis and constipation. Surgery was consulted. They were able to reduce her hernia, and her symptoms improved with laxatives. The following morning her severe abdominal pain recurred, along with nausea vomiting and severely elevated BP > 200 (this improved with IV vasotec) . Surgery returned to see the patient and advised that she be transferred to a tertiary center as she likely had surgical needs and was too high risk for operating here. She had previously been advised by her surgeon Dr. Raya that if she would need surgery she would need to go to the [facility] main, and the patient was agreeable. [facility] general surgery Dr. Jordan accepted her and she was transferred in stable condition. Also of note, today is day 5 of antibiotics and steroids. This patient was seen by Saul Tarango PA-C under the supervision of Doctor Holbrook. [] Discharge Diet: - - as directed Discharge Activity: - - as directed Home Medications: Medications to take at Discharge Budesonide/Formoterol 80-4.5 [Symbicort 80-4.5 Mcg Inhaler] 2 puff INHALATION BID 02/28/13 Citalopram [Celexa] 20 mg PO DAILY 12/18/13 Fluticasone 0.05% [Flonase Nasal [place]] 2 spray NASAL DAILY PRN 02/28/13 Hydrocodone/Acetaminophen [Vicodin 5-300 mg Tablet] 1 tab PO BID PRN PRN Omeprazole [Prilosec] 40 mg PO DAILY 02/28/13 Clopidogrel Bisulfate [Plavix] 75 mg PO DAILY 07/08/14 Montelukast [Singulair] 10 mg PO QHS 07/08/14 Albuterol IH (ProAir) [Proair Hfa] 2 puff INHALATION Q6H PRN PRN 07/15/14 Pramipexole Di-HCl [Mirapex] 1 mg PO TID PRN 09/19/16 Atorvastatin Calcium [Lipitor] 40 mg PO QHS #30 tab 10/03/16 Furosemide [Lasix] 20 mg PO DAILY PRN 11/01/16 Lorazepam [Ativan] 0.5 mg PO QHS PRN PRN 11/01/16 nitroglycerin 0.4 mg sublingual tablet 0.4 mg SUBLINGUAL Q5M PRN #25 tab Cholecalciferol (Vitamin D3) [Vitamin D] 50,000 unit PO 11/18/17 Ferrous Gluconate 325 mg PO BIDCM 11/18/17 Tolterodine Tartrate [Detrol LA] 4 mg PO DAILY 11/18/17 Primary Care Physician: Vicente Raya III, MD [Primary Care Provider] - Please follow up with your Primary Care Physician in: as directed Please Follow Up With: Raj Raya MD - Surgeon When: as directed Please Follow Up With: Tomás Soto DO - body shop supervisor When: as directed Disposition: [facility] Minutes spent on discharge:: 45 Patient Condition:: Stable Medical Necessity - Tobacco Use Smoking Status: Current every day smoker Meaningful Use Info Meaningful Use Diagnoses (Choose all that apply): None applicable <Casey Holbrook - Last Filed: 11/22/17 14:24> Discharge Date and Diagnosis - Primary Discharge Diagnosis Active and Suspected Problems (Last Reviewed 11/21/17 @ 11:31 by Stephon Banda MD) Community acquired pneumonia (Acute) Sepsis (Acute) Abdominal pain (Acute) Incisional hernia (Acute) - Secondary Discharge Diagnosis Chronic Problems (Last Reviewed 11/21/17 @ 11:31 by Stephon Banda MD) Carotid artery stenosis (Chronic) History of coronary artery stent placement (Chronic ~03/22/13) [id number] RCA [id number] RCA 2000 and 2002 Atherosclerosis of coronary artery of [place] heart without angina pectoris ( Chronic) [id number]-[id number] RCA 03/22/13 [id number] RCA 2000 and 2002 Chronic hypoxemic respiratory failure (Chronic) Stage 2 moderate COPD by GOLD classification (Chronic) VBI (vertebrobasilar insufficiency) (Chronic) Asthma (Chronic) HTN (hypertension) (Chronic) Hyperlipemia (Chronic) Tobacco abuse (Chronic) Obesities, morbid (Chronic) History of COPD (Chronic) History of diabetes mellitus, type II (Chronic) History of gastroesophageal reflux (GERD) (Chronic) Obstructive sleep apnea (Chronic) Hospital Course and Treatment Imaging Results: 11/22/17 13:45 Abd Inc Decub and/or Erect [RAD] Urgent Summary of Care Provided: This patient was seen in conjunction with Saul Tarango PA-C. I have independently interviewed and examined the patient and reviewed pertinent historical, laboratory, and other data. Please refer to Saul Tarango PA-C note for details of this patient's presentation, findings, and recommendations. I have reviewed Saul Tarango PA-C note and concur with documented findings. In brief, patient is a 77-year-old lady admitted with sepsis secondary to suspected streptococcal community-acquired pneumonia managed with Levaquin. Patient did experience abdominal distention CT obtained was questionable for possible incarcerated ventral hernia for which consultation was placed to general surgery patient was seen by Dr. Banda who initially recommended conservative management however patient had a recurrence of her obstruction. Dr. Banda subsequently recommended for patient to be transferred to [facility] course as elicited above by aSul Tarango PA-C Assessment: 1. Sepsis secondary to community-acquired pneumonia with suspected streptococcal pneumonia 2. Ventral hernia with suspected incarceration 3. History of gastric bypass 4. COPD with acute exacerbation 5. Obstipation treated symptomatically 6. Tobacco dependence counseled on cessation, offered nicotine patch for tobacco cravings 7. Morbid obesity with BMI of 50.6 8. Essential hypertension 9. Dyslipidemia 10. Obstructive sleep apnea 11. GERD 12. CAD 13. Anxiety disorder 14. DVT prophylaxis SC heparin 15. Atelectasis did encourage the use of incentive spirometry Time spent on transfer to 45 minutes Code Visit Inpatient E&M: 94038 Disch Hosp
--- NOTE | 2017-11-22 13:45 | RAD_ITS ---
STUDY: X-RAY - ABDOMEN/PELVIS REASON FOR EXAM: Female, 77 years old. Abdominal pain. Sepsis. TECHNIQUE: AP supine and upright views of the abdomen and pelvis. COMPARISON: None. FINDINGS: Mild increased linear markings at the left lung base suggestive of a linear atelectasis and/or scarring. There is dilatation of the cecum and ascending colon. The cecum measures 11.1 cm in transverse dimension. There is an amorphous collection of gas in the soft tissues overlying the right lower pelvis. This may represent a hernia. Correlation with CT scan is recommended. There is no demonstrated free abdominal air. The visualized liver, spleen and kidneys are grossly normal in size and morphology. There are diffuse degenerative changes of the visualized lumbar spine. Degenerative changes of the lumbar spine and hip joints. RAD/Abd Inc Decub and/or Erect IMPRESSION: Gaseous distention of the cecum and ascending colon. Focus of amorphous air in the right lower hemipelvis as described. Correlation with a CT scan is recommended. Electronically Signed: Emanuel Ventura MD at 14:21 EDT Tel [phone], Service support ,
[2017-11-22] MEDS: 0.9% NaCl Peripheral Flush Adult/Peds IV (15:30)
== END 2017-11-22 16:50 | disposition short-term general hospital (02) | DRG 871 ==
LOC: ED 11-18 02:21 → PCU 11-18 02:30
PROVIDERS: Physician Assistant; Admitting Provider Hospitalist; Emergency Provider Emergency Medicine; Family Provider Family Medicine; PCP Family Medicine; Visit Provider Internal Medicine
DX: A41.9 Sepsis, unspecified organism (principal); J15.4 Pneumonia due to other streptococci; J96.11 Chronic respiratory failure with hypoxia; J44.0 Chronic obstructive pulmonary disease with (acute) lower respiratory infection; J44.1 Chronic obstructive pulmonary disease with (acute) exacerbation; K43.6 Other and unspecified ventral hernia with obstruction, without gangrene; Z68.43 Body mass index [BMI] 50.0-59.9, adult; I47.2 Ventricular tachycardia; R04.2 Hemoptysis; E66.01 Morbid (severe) obesity due to excess calories; G25.81 Restless legs syndrome; E78.5 Hyperlipidemia, unspecified; N32.81 Overactive bladder; F41.9 Anxiety disorder, unspecified; K21.9 Gastro-esophageal reflux disease without esophagitis; I25.10 Atherosclerotic heart disease of native coronary artery without angina pectoris; G47.33 Obstructive sleep apnea (adult) (pediatric); Z98.84 Bariatric surgery status; Z95.5 Presence of coronary angioplasty implant and graft; F17.210 Nicotine dependence, cigarettes, uncomplicated; Z99.81 Dependence on supplemental oxygen; K59.00 Constipation, unspecified; Z90.49 Acquired absence of other specified parts of digestive tract; I10 Essential (primary) hypertension; K52.89 Other specified noninfective gastroenteritis and colitis; Z86.39 Personal history of other endocrine, nutritional and metabolic disease; R65.20 Severe sepsis without septic shock
CPT/HCPCS: 36415; 71045; 74019; 74176; 80048; 82962; 83605; 84484; 85025; 87040; 87070; 87205; 87449; 87804; 93005; 94640; 94667; 94668; 97116; 97162; 97166; 97530; 97535; 97802; 99251; 99283; 99406; J7030; J7040; A4216; G0463; J2405

== ENCOUNTER → 2017-12-16 13:59 | Outpatient (CLI) | payer MEDICARE, SELFPAY ==
--- NOTE | 2017-12-16 14:00 | ECHOCS_ITS ---
Reason For Study: CHF Procedure This was a 2D Doppler, Color Flow transthoracic echocardiogram. The study was technically difficult. Contrast injection was performed. Exam performed in department. Left Ventricle Mild concentric left ventricular hypertrophy. The estimated ejection fraction is 65 %. Stage 1 diastolic dysfunction. No regional wall motion abnormalities noted. Right Ventricle Normal size and thickness. Normal systolic function. Atria Normal left atrium. Normal right atrium. Normal atrial septum. Mitral Valve The mitral valve is structurally normal. No prolapse or stenosis seen. Mild mitral annular calcification extending into the posterior leaflet. Tricuspid Valve Normal tricuspid valve. Unable to estimate RV systolic pressure due to inadequate jet, pulmonary artery pressure probably normal. Aortic Valve Normal aortic valve. Trisinus/trileaflet aortic valve. Pulmonic Valve Normal pulmonic valve. Great Vessels Normal aortic root. Normal arch. Normal inferior vena cava. Inferior vena cava collapse with sniff. Pericardium/Pleural No pericardial effusion. Medication Diluted definity 2ml given slow IV push to enhance endocardial definition. MMode/2D Measurements & Calculations LVIDd: 4.0 cm IVSd: 1.4 cm LVOT diam: 2.0 cm LVIDs: 2.6 cm LVPWd: 1.4 cm LVOT area: 3.1 cm2 FS: 36.0 % Ao root diam: 3.2 cm LAV(MOD-bp): 56.2 ml LA A4 area: 19.5 cm2 LA dimension: 3.6 cm LAV(MOD-bp) Indexed: 25.9 ml/m2 LAV(MOD-sp2): 48.9 ml LAV(MOD-sp4): 61.7 ml Time Measurements MV dec time: 0.25 sec Doppler Measurements & Calculations MV E max vicente: 58.7 cm/sec Lat Peak E' Vicente: 4.1 cm/sec Med Peak E' Vicente: 3.8 cm/sec MV A max vicente: 82.7 cm/sec E/E' lat: 14.4 E/E' med: 15.4 MV E/A: 0.71 MV V2 max: 93.4 cm/sec MV P1/2t max vicente: 70.3 cm/sec Ao V2 max: 159.9 cm/sec MV max P.5 mmHg MV P1/2t: 66.9 msec Ao max P.2 mmHg MV V2 mean: 59.0 cm/sec MV dec slope: 307.7 cm/sec2 Ao V2 mean: 121.4 cm/sec MV mean P.5 mmHg MVA(P1/2t): 3.3 cm2 Ao mean P.4 mmHg MV V2 VTI: 21.1 cm Ao V2 VTI: 36.7 cm MVA(VTI): 3.6 cm2 VANESSA(I,D): 2.1 cm2 VANESSA(V,D): 1.9 cm2 LV V1 max: 97.2 cm/sec SV(LVOT): 76.0 ml PA V2 max: 105.0 cm/sec LV V1 max P.8 mmHg LV V1 mean P.3 mmHg LV V1 mean: 71.3 cm/sec LV V1 VTI: 24.3 cm Interpretation Summary Mild concentric left ventricular hypertrophy. The estimated ejection fraction is 65 %. Stage 1 diastolic dysfunction. Unable to estimate RV systolic pressure due to inadequate jet, pulmonary artery pressure probably normal. Compared to echo report dated 10/04/2016, no appreciable changes noted. The study was technically difficult. Contrast injection was performed. Ordering Physician: Stephon Roblero Referring Physician: Stephon Roblero Performed By: Marciano Luis RCS
== END ==
PROVIDERS: Family Provider Family Medicine; PCP Family Medicine; Referring Provider Internal Medicine Cardiovascular Disease; Visit Provider Internal Medicine Cardiovascular Disease
DX: R07.9 Chest pain, unspecified (principal); R06.09 Other forms of dyspnea
CPT/HCPCS: 93306; Q9957; A4216; C8929

== ENCOUNTER → 2017-12-21 10:13 | Outpatient (CLI) | payer MEDICARE, SELFPAY ==
--- NOTE | 2017-12-21 10:15 | STEWCON_ITS ---
Reason For Study: Chest Pain Stress Results Protocol: Kwan Protocol Maximum Predicted HR: 144 bpm Target HR: 122 bpm% Max imum Predicted HR: 88 % DurationHeart Rate Stage (mm:ss) (bpm) BPDos e Comment BASELINE 79 116/89 2 CC definity STAGE 1 3:02 89 103/6610.00 STAGE 2 3:12 12 7 122/6020.001CC Definity, feels agitated, jaw pain RECOVERY 88 133/81 2CC Definity, 0.4 mg/ml Nitro x1 given for Jaw pain Stress Duration: 6:14 mm:ss Maximum Stress HR: 127 bpm Baseline Echocardiogram Findings The estimated ejection fraction is 65 %. Stress Echo Wall motion Data Resting WMIntermediate WMStress WM Resting Wall Motion Wall Motion Stress No regional wall motion No regional wall motion abnormalities noted. abnormalities noted. EKG Data The baseline ECG displays normal sinus rhythm. The patient was titrated from 10 mcg to a maximum of 20 mcg of dobutamine during the stress. The maximum heart rate attained was 6:14 beats per minute. This was 92% of maximum predicted heart rate. The stress ECG displays diffuse abnormal ST segments. Interpretation Summary The estimated ejection fraction is 65 %. The patient was titrated from 10 mcg to a maximum of 20 mcg of dobutamine during the stress. Abnormal, adequate, dobutamine echocardiogram. Positive for ischemia by both EKG and chest heaviness symptoms with radiation into her jaw consistent with previous anginal symptoms. No associated wall motion abnormalities on echocardiogram. Symptoms resolved by 18 minutes into recovery with the assistance of sublingual nitroglycerin. Appropriate blood pressure response to dobutamine. Decreased sensitivity due to poor echo windows requiring Definity enhancement. Final LVEF of 75%. Patient will be referred to our office for diagnostic coronary angiogram prior to hiatal hernia surgery. Test terminated due to agitation and jaw pain. Ordering Physician: Stephon Roblero Referring Physician: Stephon Roblero Performed By: Milla Rodriguez RDCS
== END ==
PROVIDERS: Family Provider Family Medicine; PCP Family Medicine; Referring Provider Internal Medicine Cardiovascular Disease; Visit Provider Internal Medicine Cardiovascular Disease
DX: I10 Essential (primary) hypertension (principal); I25.10 Atherosclerotic heart disease of native coronary artery without angina pectoris; R07.9 Chest pain, unspecified; Z95.5 Presence of coronary angioplasty implant and graft; Z86.39 Personal history of other endocrine, nutritional and metabolic disease
CPT/HCPCS: 93017; 93350; J7030; Q9957; A4216; C8928

== ENCOUNTER 2017-12-22 07:51 | Day surgery (SDC) | payer MEDICARE, SELFPAY ==
[2017-12-21 13:33] VITALS: BMI 49.4
[2017-12-21 13:39] LABS: International Normalized Ratio 1.1; Prothrombin Time (Protime)PT. 14.1 SECONDS (11.7-14.9)
[2017-12-21 13:45] LABS: Hematocrit 37.1 % (37-47); Hemoglobin 11.4 g/dl (12.0-15.0); Mean Corp Hgb Conc 30.7 g/gl (32-36); Mean Corpuscular Hgb 25.7 pg (27.0-32.0); Mean Corpuscular Volume 83.7 fL (81-99); Mean Platelet Vol. 9.2 fl (6.2-12.0); Platelet Count 273 K/mm3 (150-450); RBC Distribution Width CV 21.8 % (11.6-14.6); RBC Distribution Width SD 64.7 fl (35.1-43.9); Red Blood Count 4.43 M/mm3 (4.2-5.4); White Blood Count 10.5 K/mm3 (4.4-11.0)
[2017-12-21 13:46] LABS: Scan Indicated on CBC? Y/N YES- FLAGS NOTED
[2017-12-21 13:55] LABS: Anion Gap 4 (5-15); BUN 14 mg/dL (7-18); BUN/Creat Ratio 22.3 RATIO (10-20); Calcium,Total 8.4 mg/dL (8.5-10.1); Chloride 107 mmol/L (98-107); Creatinine, Serum 0.63 mg/dL (0.55-1.02); EST Glomerular Filtration Rate 98 mL/min (>60); Est Glom Filt Rate - Afr Amer 119 mL/min (>60); Estimated Creatinine Clearance 37.85 ml/min; Glucose 80 mg/dL (74-106); Potassium 3.8 mmol/L (3.5-5.1); Sodium Level 143 mmol/L (136-145)
[2017-12-22] VITALS (44 sets, daily range): BP systolic 80–181; BP diastolic 37–81; PULSE 63–89; RESP 16–81; TEMP 36.4–36.7; O2SAT 92–100; BMI 49.7; BMI 49.4
--- NOTE | 2017-12-22 11:08 | CL.I_ITS ---
Patient Name: KAREN VILLANUEVA Study Date: 12/22/2017 Performing: Stephon Roblero MD Ht: 62 inches 157 cm : 1940 Wt: 269.3 lbs 122 kg Age: 77 Gender: female BSA: 2.16 PROCEDURE(S) PERFORMED RT35-FYS/COR/LV [id number] W OR WO PTCA, SINGLE CORONARY ARTERY CLINICAL PROFILE AND CO-MORBIDITIES Indications: New Onset Angina <= 2 months, Stable Known CAD, Pre-Operative Evaluation Heart Failure: None Stress/Imaging Stress Echocardiogram: Yes Result: Positive Intermediate Risk Stress Echocardiogra m: Positive Intermediate Risk Angina Classification Anginal Classification w/in 2 Weeks: CCS III CAD Presentations: Unstable angina. Comorbidities/Risk Factors: Hypertension Dyslipidemia Prior PCI Diabetes Mellitus: Diabetes Therapy: Oral CONCLUSIONS Triple vessel CAD of the LAD, LCX and RCA Normal LV size, wall motion,and systolic function Successful PTCA/MUSHTAQ to mid RCA with a 3.5 x 12 Promus Synergy, post dilated proximally with a 4.0 x 8 NC balloon; 85%-->0%. PT had identical CP during balloon inflation. RECOMMENDATIONS Referred for immediate PCI Highly recommend quitting all tobacco products Follow up with primary head of physics Risk factor modification ASA Indefinitley Plavix for at least 12 months Routine post interventional care Refer for Outpatient Cardiac Rehab Manual sheath removal per protocol Follow up with Dr. Roblero Elective PCI of LAD in 3 weeks with long 55 cm sheath. Successful Mynx closure. Plavix 75 mg po bid. DESCRIPTION OF PROCEDURE The patient arrived to the procedure lab. The risks and benefits of the procedure as well as a full d escription of our services here and lack of surgical backup were fully explained to the patient and/o r their significant other prior to the catheterization. The Timeout was completed, verifying the jacinda ect patient and procedure. The patient's procedural site was prepped and draped in the usual fashion. Local anesthetic was given subcutaneously to right groin region with Lidocaine 2%. Using a modified Seldinger technique, arterial access was obtained via the right femoral artery, a 4Fr 45 cm sheath wa s inserted. Left Coronary Artery selective angiography was performed in multiple views using a 4 Fr. JL5 catheter. Right Coronary Artery selective angiography was then performed in multiple views using a 4 Fr. 3DRC catheter. Left Ventriculography was performed in [place] projection using a 4 Fr. Pigtail c atheter Arterial sheath was exchanged for a 6fr 55cm sheath HSII Guide catheter was inserted and engaged into the RCA. runthrough Guide wire was advanced to the RCA. emerge 2.00x12 Balloon catheter was inserted . PTCA balloon inflated at 10 atms for 18 secs. PTCA balloon inflated at 10 atms for 16 secs. Angiogr am performed post balloon dilatation. synergy 3.50x12 Drug Eluting stent was inserted. Drug Eluting s tent was removed intact, failed to cross lesion emerge 3.00x8 Balloon catheter was inserted. PTCA bal loon inflated at 8 atms for 14 secs. PTCA balloon inflated at 8 atms for 11 secs. Angiogram performed post balloon dilatation. synergy 3.50x12 Drug Eluting stent was inserted. Angiogram performed post s tent deployment. nc emerge 4.00x8 Balloon catheter was inserted. PTCA balloon inflated at 8 atms for 12 secs. PTCA balloon inflated at 12 atms for 11 secs. Angiogram performed post balloon dilatation. C ontrast was injected through the sheath and the Right Iliac and Femoral artery were assessed for poss ible closure device. The arterial sheath was pulled and a Mynx closure device was deployed for hemos tasis CORONARY ANGIOGRAPHY DOMINANCE: Right Dominant LEFT HEART ASSESSMENT Left Ventricular Ejection Fraction: by LV Gram 65 % Normal Left Ventricular systolic function Normal LV wall motion LEFT MAIN: Angiographically normal LEFT ANTERIOR DECENDING ARTERY: Moderate calcification PROX LAD: 75 % Stenosis DISTAL LAD: 75 % Stenosis CIRCUMFLEX ARTERY: MID CIRC: Previously placed stent is patent RIGHT CORONARY ARTERY: PROX RCA: Previously placed stent is patent MID RCA: 85 % Stenosis DISTAL RCA: Previously placed stent is patent RT PLV: 50 % Stenosis INTERVENTION INFORMATION LESION SITE: RCA (Mid) Lesion Complexity: High/C, lesion at bifurcation: No, thrombus present: No, culprit lesion: Yes Pre Stenosis: 85 % Pre intervention DINA flow: 3 PROCEDURE: Drug Eluting Stent with pre and post dilatation Post Stenosis: 0 % Post intervention DINA flow: 3 Lesion Devices: Leonid Sci EMERGE MR 2.00x12 BALLOON Leonid Sci Synergy MR MUSHTAQ 3.50x12 Leonid Sci EMERGE MR 3.00x08 BALLOON COMPLICATIONS No Complications PROCEDURE MEDICATIONS Versed 1 mg IV Oxygen: 2 L/min via nasal cannula Heparin 6000 unit(s) IV 12/22/2017 10:11:26 Nitro 200 mcg IC 12/22/2017 10:13:51 Nitro 200 mcg IC 12/22/2017 10:13:51 IV Bolus: .9 NaCl 400ml total 12/22/2017 10:12:03 SUMMARY OF HEMODYNAMIC DATA Time AIR REST ECG 08:29:52 AO 161/57 (93) SA 10:02:40 LV 171/-12, 20 10:08:40 LV 169/-13, 19 10:08:41 LVp 171/-11, 20 10:08:46 AOp 162/50 (87) 10:08:51 Signed By Stephon Roblero MD On 12/22/2017 11:08:08 Stephon Roblero MD
--- NOTE | 2017-12-22 11:09 | EKG12_ITS ---
Test Reason : S/P PCI Blood Pressure : / mmHG Vent. Rate : 065 BPM Atrial Rate : 065 BPM P-R Int : 198 ms QRS Dur : 098 ms QT Int : 416 ms P-R-T Axes : 065 059 086 degrees QTc Int : 432 ms Normal sinus rhythm Anterior [place], age undetermined, cannot be excluded Confirmed by STEFANIE LEI, SUMA ([id number]), editor & co founder DANIA FULLER ([id number]) on 12/29/2017 1:10:27 PM Referred By: Stephon Roblero Confirmed By:SUMA WATTS MD
[2017-12-22] MEDS: 0.9% Normal Saline 1,000 ML 150 ML IV (11:20)
--- NOTE | 2017-12-22 12:44 | CRPHASE1 ---
Patient Data/Charges Former Patient:: Phase II Applied Exercise Physiologist:: Stephon Roblero Refer Phase II:: Yes Phase II Referral:: [facility] Start Phase II:: After follow up visit with cardiology or after next impending cath in 3 w. Phase I Charge:: Level I - Education Risk Factors/Lifestyle Hx Diabetes Mellitus Type 2: Yes Hx Dyslipidemia: Yes Hx Obesity: Yes Height: 1.57 m Weight:: 122.47 kg BMI: 49.4 Post-Menopausal: Yes Family History: Family History (Last Reviewed 05/19/17 @ 13:47 by Sayda Larson) Mother CVA (cerebral vascular accident) Father Asthma Hypertension High blood cholesterol level Arthritis Past Cardiac Illness: Coronary Artery Disease, Previous PCI w/Stent Phase I Education Given On:: [place], Nutrition, Antiplatelet medication, CHF Issues Affecting Care:: Physical - Pt dozing during Ph I visit, so briefly discussed with her and booklet left. Knowledge of Condition:: Yes Learning Preferences: Verbal, Written, Audio/Visual, Demonstration Medical/Surgical History Angina:: Yes Diabetes Type II:: Yes Hypertension:: Yes Dyslipidemia:: Yes Discharge/Home/Social Eval Marital Status:
--- NOTE | 2017-12-22 12:48 | CRPHASE1_ITS ---
Patient Data/Charges Former Patient:: Phase II Card Mounter:: Stephon Roblero Refer Phase II:: Yes Phase II Referral:: [facility] Start Phase II:: After follow up visit with cardiology or after next impending cath in 3 w. Phase I Charge:: Level I - Education Risk Factors/Lifestyle Hx Diabetes Mellitus Type 2: Yes Hx Dyslipidemia: Yes Hx Obesity: Yes Height: 1.57 m Weight:: 122.47 kg BMI: 49.4 Post-Menopausal: Yes Family History: Family History (Last Reviewed 05/19/17 @ 13:47 by Sayda Larson) Mother CVA (cerebral vascular accident) Father Asthma Hypertension High blood cholesterol level Arthritis Past Cardiac Illness: Coronary Artery Disease, Previous PCI w/Stent Phase I Education Given On:: [place], Nutrition, Antiplatelet medication, CHF Issues Affecting Care:: Physical - Pt dozing during Ph I visit, so briefly discussed with her and booklet left. Knowledge of Condition:: Yes Learning Preferences: Verbal, Written, Audio/Visual, Demonstration Medical/Surgical History Angina:: Yes Diabetes Type II:: Yes Hypertension:: Yes Dyslipidemia:: Yes Discharge/Home/Social Eval Marital Status:
--- NOTE | 2017-12-22 12:49 | CRPH1.INSTRU ---
General Education CAD and cardiac anatomy and function:: Patient communicates acknowledgment, Needs reinforcement Explanation of diagnoses and procedures:: Patient communicates acknowledgment, Needs reinforcement Sign/Symptoms of [place]:: Not instructed Antiplatelet therapy: Not instructed Proper use of NTG-SL: Not instructed Emergency procedures and activation of EMS: Not instructed Compliance of all prescribed medications: Not instructed - Pt dozing during Ph I visit, so briefly discussed with her and booklet left. Smoking Nicotine/Smoking Response Code:: Not instructed Dyslipidemia Dyslipidemia Response Code:: Not instructed Overweight/Obesity Patient Overweight/Obesity Risk Factors Are:: Obesity - > or = 30 Overweight/Obesity:: Not instructed Hypertension Hypertension:: Not instructed Heart Disease Patient Heart Disease Risk Factors Are:: Family history of heart disease < 65 years old Heart Disease Response Code:: Not instructed Diabetes Patient Diabetes Risk Factors Are:: Elevated blood sugars Diabetes:: Not instructed Metabolic Syndrome Metabolic Syndrome Response Code:: Not instructed Sedentary Sedentary Response Code:: Not instructed Stress Stress Response Code:: Not instructed - Pt dozing during Ph I visit, so briefly discussed with her and booklet left.
--- NOTE | 2017-12-22 13:01 | NURSING ---
Nitroglycerin GTT started. After starting it pt had to use the bedpan so blood pressure was elevated with repositioning. GTT not increased d/t this.
[2017-12-22] MEDS: Losartan Potassium 25 MG Tablet PO (14:30)
[2017-12-22] MEDS: HYDROcodone Bitartrate/Apap 5/325 Tablet PO (14:30)
[2017-12-22 14:41] LABS: ACT Activated Clotting Time 169 sec (74-137)
[2017-12-22] MEDS: Ferrous Gluconate 325 MG Tablet PO (16:04)
[2017-12-22] MEDS: Isosorbide Mononitrate 30 MG Tablet PO (16:04)
--- NOTE | 2017-12-22 17:05 | PCM.DC.CCA ---
Discharge Diet: Low fat/ Low Cholesterol Discharge Activity: Return to Normal Activity May shower in (days): 1 May resume sexual activity in: 1-2 weeks Lifting Restrictions: Do not lift anything greater than 10 pounds for 3 days Call your doctor if your incision/area has: Continuous Slow Oozing, Sudden Increased Bleeding, Increased Pain/ Swelling, Increased Redness, Foul Smelling Discharge, Swelling at the incision site Call your doctor if you observe: Fever of 101 or Higher, Shortness of breath Remove Dressing in (days):: 1 Cleanse incision/area with: Soap & Water Additional Instructions: Your staged heart catheterization will be January 09. Please arrive at 9:00 AM. The morning of procedure continue to take your plavix, metoprolol, and losartan medication. We will hold off on isosorbide at this time due to lower blood pressure readings. You have been started on new medication for blood pressure and heart rate. We will continue to monitor blood pressure and heart rate. If any concerns, please call the [facility] at [phone]. You will continue with Plavix 75 twice a day. Your new prescription for Metoprolol and Losartan have been sent to [facility]. Allergies/Adverse Reactions: Allergies aspirin [ASA] Allergy (Severe, Verified 12/12/17 11:51) Hives bupropion [From Wellbutrin] Allergy (Verified 12/12/17 11:51) Unknown codeine Allergy (Verified 12/12/17 11:51) Unknown meperidine HCl [From Demerol] Allergy (Verified 12/12/17 11:51) Hives naproxen sodium [From Anaprox] Allergy (Verified 12/12/17 11:51) Unknown Penicillins [PCN] Allergy (Verified 12/12/17 11:51) Unknown propoxyphene HCl [From Darvon] Allergy (Verified 12/12/17 11:51) Hives Sulfa (Sulfonamide Antibiotics) Allergy (Verified 12/12/17 11:51) Unknown NSAIDS (Non-Steroidal Anti-Inflamma Adverse Reaction (Verified 12/12/17 11:51) Other Medications to take at Discharge Budesonide/Formoterol 80-4.5 [Symbicort 80-4.5 Mcg Inhaler] 2 puff INHALATION BID 02/28/13 Citalopram [Celexa] 20 mg PO DAILY 02/28/13 Fluticasone 0.05% [Flonase Nasal [place]] 2 spray NASAL DAILY PRN 02/28/13 Montelukast [Singulair] 10 mg PO QHS 07/08/14 Albuterol IH (ProAir) [Proair Hfa] 2 puff INHALATION Q6H PRN PRN 07/15/14 Pramipexole Di-HCl [Mirapex] 1 mg PO TID PRN 09/19/16 Atorvastatin Calcium [Lipitor] 40 mg PO QHS #30 tab 10/03/16 Lorazepam [Ativan] 0.5 mg PO QHS PRN PRN 11/01/16 Ferrous Gluconate 325 mg PO BIDCM 11/18/17 Tolterodine Tartrate [Detrol LA] 4 mg PO DAILY 11/18/17 omeprazole magnesium 20 mg tablet,delayed release 20 mg PO DAILY 12/08/17 furosemide 20 mg tablet 20 mg PO DAILY #30 tab 12/12/17 nitroglycerin 0.4 mg sublingual tablet 0.4 mg SUBLINGUAL Q5M PRN #25 tab 12/12/17 Cholecalciferol (Vitamin D3) [Vitamin D3] 1,000 unit PO DAILY 12/22/17 Clopidogrel Bisulfate [Plavix] 75 mg PO BID tablet 12/22/17 Hydrocodone/Acetaminophen [Hydrocodone-Acetamin 5-325 mg] 1 tab PO BID PRN PRN 12/22/17 Metoprolol Tartrate [Lopressor (beta eufemia)] 12.5 mg PO BID tablet 12/22/17 Losartan Potassium [Cozaar] 25 mg PO DAILY tablet 12/23/17 Primary Care Physician: Vicente Raya III, MD [Primary Care Provider] - Test Results: Test results from this visit will be discussed in further detail at your follow-up appointment, if applicable. When: Your next heart catheterization will be 01/09 at 9:00 AM Proposed Discharge Date: 12/23/17 Cardiac Rehabilitation Info Cardiac Rehabilitation Program Information: Cardiac Rehabilitation is important for patients like you who are recovering from a heart problem. Cardiac rehabilitation programs are recognized as integral to the continued care of the patient with coronary heart disease. The cardiac rehabilitation program is designed to optimize a patient's physical, psychological, and social functioning. Health laboratory animal care veterinarian work in cardiac rehabilitation programs and assist you with getting the treatments you need to get stronger and healthier - like exercise, healthy eating habits, and medications. Cardiac rehabilitation has been show to help people with heart problems live longer and have better life enjoyment than people who do not go to cardiac rehabilitation. Please contact the Cardiac Rehabilitation Program at [facility] at in two weeks if you have not heard from them.
--- NOTE | 2017-12-22 17:09 | DCINST_ITS ---
Discharge Diet: Low fat/ Low Cholesterol Discharge Activity: Return to Normal Activity May shower in (days): 1 May resume sexual activity in: 1-2 weeks Lifting Restrictions: Do not lift anything greater than 10 pounds for 3 days Call your doctor if your incision/area has: Continuous Slow Oozing, Sudden Increased Bleeding, Increased Pain/ Swelling, Increased Redness, Foul Smelling Discharge, Swelling at the incision site Call your doctor if you observe: Fever of 101 or Higher, Shortness of breath Remove Dressing in (days):: 1 Cleanse incision/area with: Soap & Water Additional Instructions: Your staged heart catheterization will be January 09. Please arrive at 9:00 AM. The morning of procedure continue to take your plavix, metoprolol, and losartan medication. We will hold off on isosorbide at this time due to lower blood pressure readings. You have been started on new medication for blood pressure and heart rate. We w ill continue to monitor blood pressure and heart rate. If any concerns, please call the [facility] at [phone]. You will continue with Plavix 75 twice a day. Your new prescription for Metoprolol and Losartan have been sent to [facility]. Allergies/Adverse Reactions: Allergies aspirin [ASA] Allergy (Severe, Verified 12/12/17 11:51) Hives bupropion [From Wellbutrin] Allergy (Verified 12/12/17 11:51) Unknown codeine Allergy (Verified 12/12/17 11:51) Unknown meperidine HCl [From Demerol] Allergy (Verified 12/12/17 11:51) Hives naproxen sodium [From Anaprox] Allergy (Verified 12/12/17 11:51) Unknown Penicillins [PCN] Allergy (Verified 12/12/17 11:51) Unknown propoxyphene HCl [From Darvon] Allergy (Verified 12/12/17 11:51) Hives Sulfa (Sulfonamide Antibiotics) Allergy (Verified 12/12/17 11:51) Unknown NSAIDS (Non-Steroidal Anti-Inflamma Adverse Reaction (Verified 12/12/17 11:51) Other Medications to take at Discharge Budesonide/Formoterol 80-4.5 [Symbicort 80-4.5 Mcg Inhaler] 2 puff INHALATION BID 02/28/13 Citalopram [Celexa] 20 mg PO DAILY 02/28/13 Fluticasone 0.05% [Flonase Nasal [place]] 2 spray NASAL DAILY PRN 02/28/13 Montelukast [Singulair] 10 mg PO QHS 07/08/14 Albuterol IH (ProAir) [Proair Hfa] 2 puff INHALATION Q6H PRN PRN 07/15/14 Pramipexole Di-HCl [Mirapex] 1 mg PO TID PRN 09/19/16 Atorvastatin Calcium [Lipitor] 40 mg PO QHS #30 tab 10/03/16 Lorazepam [Ativan] 0.5 mg PO QHS PRN PRN 11/01/16 Ferrous Gluconate 325 mg PO BIDCM 11/18/17 Tolterodine Tartrate [Detrol LA] 4 mg PO DAILY 11/18/17 omeprazole magnesium 20 mg tablet,delayed release 20 mg PO DAILY 12/08/17 furosemide 20 mg tablet 20 mg PO DAILY #30 tab 12/12/17 nitroglycerin 0.4 mg sublingual tablet 0.4 mg SUBLINGUAL Q5M PRN #25 tab 12/12/17 Cholecalciferol (Vitamin D3) [Vitamin D3] 1,000 unit PO DAILY 12/22/17 Clopidogrel Bisulfate [Plavix] 75 mg PO BID tablet 12/22/17 Hydrocodone/Acetaminophen [Hydrocodone-Acetamin 5-325 mg] 1 tab PO BID PRN PRN 12/22/17 Metoprolol Tartrate [Lopressor (beta eufemia)] 12.5 mg PO BID tablet 12/22/17 Losartan Potassium [Cozaar] 25 mg PO DAILY tablet 12/23/17 Primary Care Physician: Vicente Raya III, MD [Primary Care Provider] - Test Results: Test results from this visit will be discussed in further detail at your follow- up appointment, if applicable. When: Your next heart catheterization will be 01/09 at 9:00 AM Proposed Discharge Date: 12/23/17 Cardiac Rehabilitation Info Cardiac Rehabilitation Program Information: Cardiac Rehabilitation is important for patients like you who are recovering from a heart problem. Cardiac rehabilitation programs are recognized as integral to the continued care of the patient with coronary heart disease. The cardiac rehabilitation program is designed to optimize a patient's physical, psychological, and social functioning. Health transitional care manager work in cardiac rehabilitation programs and assist you with getting the treatments you need to get stronger and healthier - like exercise, healthy eating habits, and medications. Cardiac rehabilitation has been show to help people with heart problems live longer and have better life enjoyment than people who do not go to cardiac rehabilitation. Please contact the Cardiac Rehabilitation Program at [facility] at in two weeks if you have not heard from them.
[2017-12-22] MEDS: Albuterol 2.5 MG/3 ML VIAL.NEB. INHALATION (19:32)
[2017-12-22] MEDS: Budesonide Respules 0.5 MG/2 ML AMPUL.NEB. INHALATION (19:33)
[2017-12-22] MEDS: Clopidogrel Bisulfate 75 MG Tablet PO (22:02)
[2017-12-22] MEDS: Montelukast 10 MG Tablet PO (22:02)
[2017-12-22] MEDS: Pramipexole Di-HCl 1 MG Tablet PO ×2 (22:02→22:04)
[2017-12-22] MEDS: Atorvastatin Calcium 40 MG Tablet PO (22:02)
[2017-12-23] VITALS (19 sets, daily range): BP systolic 68–141; BP diastolic 32–64; PULSE 70–86; RESP 20–26; TEMP 36.8–37.1; O2SAT 90–100
[2017-12-23] MEDS: HYDROcodone Bitartrate/Apap 5/325 Tablet PO (03:36)
[2017-12-23] MEDS: 0.9% NaCl Peripheral Flush Adult/Peds IV (05:04)
[2017-12-23 05:23] LABS: Hematocrit 33.4 % (37-47); Hemoglobin 10.4 g/dl (12.0-15.0); Mean Corp Hgb Conc 31.1 g/gl (32-36); Mean Corpuscular Hgb 26.1 pg (27.0-32.0); Mean Corpuscular Volume 83.9 fL (81-99); Mean Platelet Vol. 8.9 fl (6.2-12.0); Platelet Count 231 K/mm3 (150-450); RBC Distribution Width CV 21.9 % (11.6-14.6); RBC Distribution Width SD 64.8 fl (35.1-43.9); Red Blood Count 3.98 M/mm3 (4.2-5.4); White Blood Count 12.7 K/mm3 (4.4-11.0)
[2017-12-23 05:30] LABS: Anion Gap 6 (5-15); BUN 14 mg/dL (7-18); BUN/Creat Ratio 24.7 RATIO (10-20); Calcium,Total 8.1 mg/dL (8.5-10.1); Chloride 110 mmol/L (98-107); Cholesterol 67 mg/dL (200); Creatinine, Serum 0.57 mg/dL (0.55-1.02); EST Glomerular Filtration Rate 110 mL/min (>60); Est Glom Filt Rate - Afr Amer 133 mL/min (>60); Estimated Creatinine Clearance 37.85 ml/min; Glucose 87 mg/dL (74-106); High Density Lipoprotein 38 mg/dL; Potassium 4.1 mmol/L (3.5-5.1); Sodium Level 144 mmol/L (136-145); Triglycerides 58 mg/dL; Very Low Density Lipoprotein 12 mg/dL (5-40)
[2017-12-23 05:38] LABS: Scan Indicated on CBC? Y/N YES- FLAGS NOTED
[2017-12-23 06:15] LABS: Differential Comment SCAN
[2017-12-23] MEDS: Budesonide Respules 0.5 MG/2 ML AMPUL.NEB. INHALATION (07:03)
[2017-12-23] MEDS: Albuterol 2.5 MG/3 ML VIAL.NEB. INHALATION (07:03)
[2017-12-23] MEDS: Ferrous Gluconate 325 MG Tablet PO (09:26)
[2017-12-23] MEDS: Clopidogrel Bisulfate 75 MG Tablet PO (09:27)
[2017-12-23] MEDS: Tolterodine Tartrate 4 MG CAP.SA PO (09:27)
[2017-12-23] MEDS: Citalopram 20 MG Tablet PO (09:27)
[2017-12-23] MEDS: Pantoprazole Sodium 20 MG Tablet PO (09:29)
--- NOTE | 2017-12-23 10:00 | EKG12_ITS ---
Test Reason : AM EKG Blood Pressure : / mmHG Vent. Rate : 073 BPM Atrial Rate : 073 BPM P-R Int : 172 ms QRS Dur : 088 ms QT Int : 384 ms P-R-T Axes : 044 041 083 degrees QTc Int : 423 ms Normal sinus rhythm Nonspecific ST and T wave abnormality Septal MS, age undetermined, cannot be excluded Abnormal ECG Confirmed by STEFANIE LEI, SUMA ([id number]), television news video editor DANIA FULLER ([id number]) on 12/29/2017 1:09:58 PM Referred By: Stephon Roblero Confirmed By:SUMA WATTS MD
--- NOTE | 2017-12-23 10:44 | PCM.PN.CARD ---
Subjectve: Patient doing very well this morning, and in fact feels much better. She denies any chest pain, angina, and her right groin is clean/dry/intact. She has no hematoma or thrills or bruits. Her hemoglobin and creatinine are within nominal limits. EKG shows normal sinus rhythm, no acute changes. Objective: Vital Signs Temp Pulse Resp BP Pulse Ox 98.5 F 77 22 H 86/40 L 100 12/23/17 04:00 12/23/17 09:28 12/23/17 07:03 12/23/17 09:28 12/23/17 07:03 Oxygen Flow Rate (L/min) 3 Oxygen Delivery Method Nasal Cannula Weight: 270 lb Body Mass Index (BMI) 49.7 Intake and Output for Last 24 Hours 12/21/17 12/22/17 12/23/17 23:59 23:59 23:59 Intake Total 2475 / 2475 300 / 300 Output Total 850 / 850 450 / 450 Balance 1625 / 1625 -150 / -150 General: Awake, Alert, Oriented x 3 HEENT: PERRL, EOMI, Sclera Non Icteric Neck: Supple, Good ROM, No Lymph Node Enlargement Lungs: Clear to auscultation Cardiovascular: Regular Rhythm, Normal S1, Normal S2, No Murmurs, No Rubs, No Gallops 12/23/17 05:00: WBC 12.7 H, RBC 3.98 L, Hgb 10.4 L, Hct 33.4 L, MCV 83.9, MCH 26.1 L, MCHC 31.1 L, RDW 21.9 H, RDW Differential 64.8 H, Plt Count 231, MPV 8.9 12/23/17 05:00: Sodium 144, Potassium 4.1, Chloride 110 H, Carbon Dioxide 28.0, Anion Gap 6, BUN 14, Creatinine 0.57, Est GFR (MDRD) Af Amer 133, Est GFR (MDRD) Non-Af 110, BUN/Creatinine Ratio 24.7 H, Glucose 87, Calcium 8.1 L, Triglycerides 58, Cholesterol 67, LDL Cholesterol 17, VLDL Cholesterol 12, HDL Cholesterol 38 L Rhythm: EKG: ECHO: Stress Test: Cardiac Cath: PCI: CT Surgery: Holter monitor: EPS: PPM: CXR: Chest CT Scan: Medical Necessity - Tobacco Use Smoking Status: Current every day smoker Assessment/Plan 1. Coronary artery disease: Patient presented with unstable anginal symptoms which responded well to sublingual nitroglycerin. Patient underwent diagnostic coronary angiogram after an abnormal stress test and discovered two-vessel coronary artery disease. Patient underwent additional stenting to her mid RCA with an excellent result, and the patient feels much better today. Given the abundance of dye, we postponed intervention of her LAD for 3-4 weeks time. In the meantime she will continue baby aspirin, Plavix, we will try and start her on Cozaar for her hypertension. The patient is susceptible to fluctuations in her blood pressure and has had syncopal episodes at home. This morning her blood pressure was in the 70s although she was completely asymptomatic. I am suspicious that this is an inaccurate number although she has had episodes of hypotension and syncope at home. We will hold her antihypertensive this morning for about an hour until her blood pressure normalizes, at which time we will then give her her Lopressor and Lasix. If her blood pressure is adequate, we will hold on her Cozaar for now. The patient will return in 3-4 weeks time for elective angioplasty and stenting of her mid and distal LAD. Patient declines cardiac rehab at this time. 2. Hyperlipidemia: Continue Lipitor. 3. Tobacco cessation: I had a long and thorough discussion with the patient regarding tobacco cessation, and strongly recommended discontinuation of all tobacco products. 4. Patient may be discharged home and follow-up with Dr. Roblero going forward. Code Visit Inpatient E&M: 77146 Subs Hosp L2
[2017-12-23] MEDS: Metoprolol Tartrate 25 MG Tablet 12.5 MG PO (11:35)
[2017-12-23 12:10] LABS: Bedside Glucose 73 mg/dL (70-110)
== END 2017-12-23 13:15 | disposition home or self-care (01) ==
LOC: CLSP 07:51 → ICU 10:22
PROVIDERS: Family Provider Family Medicine; PCP Family Medicine; Referring Provider Internal Medicine Cardiovascular Disease; Visit Provider Internal Medicine Cardiovascular Disease
DX: I25.10 Atherosclerotic heart disease of native coronary artery without angina pectoris (principal); E78.5 Hyperlipidemia, unspecified; Z72.0 Tobacco use; R06.09 Other forms of dyspnea; R07.9 Chest pain, unspecified; Z23 Encounter for immunization
CPT/HCPCS: 36415; 80048; 80061; 82962; 85027; 85347; 85610; 85730; 92928; 93005; 93458; 94640; 99152; 99153; C1760; G0008; J7030; J7040; Q9967; 90686; A4216; C1725; C1769; C1874; C1887; C1894; C9600

== ENCOUNTER 2018-01-09 08:57 | Observation (INO) | payer MEDICARE, SELFPAY ==
[2017-12-22 12:49] VITALS: BMI 49.4
[2018-01-09] VITALS (15 sets, daily range): BP systolic 81–121; BP diastolic 42–71; PULSE 58–94; RESP 14–21; TEMP 36.5–37; O2SAT 92–98; BMI 46.3; BMI 47.7
--- NOTE | 2018-01-09 09:07 | RAD_ITS ---
STUDY: X-RAY CHEST REASON FOR EXAM: Female, 77 years old. Left-sided weakness and numbness. TECHNIQUE: Single AP portable view of the chest. COMPARISON: Comparison is made with prior study dated November 18, 2017. FINDINGS: EKG electrodes are seen. Increased markings with areas of confluence in the right middle lobe. A right middle lobe infiltrate should be ruled out. Follow-up is recommended. Hyperinflation. There is no demonstrated pleural abnormality. Normal size heart. Normal mediastinum and chloe. Normal visualized pulmonary arteries. There is atherosclerotic calcification of the aortic arch with tortuosity. There are diffuse degenerative changes of the visualized thoracic spine. Normal visualized ribs, clavicles, and shoulders. There is no demonstrated abnormality of the visualized soft tissue structures of the upper abdomen. RAD/Chest 1 View IMPRESSION: Increased markings in the right middle lobe with areas of confluence. A right middle lobe infiltrate should be ruled out. Radiographic follow-up is recommended. Electronically Signed: Emanuel Ventura MD at 10:13 EDT Tel [phone], Service support ,
--- NOTE | 2018-01-09 09:07 | CT_ITS ---
STUDY: CT BRAIN WITHOUT CONTRAST REASON FOR EXAM: Female, 77 years old. Left-sided weakness and numbness. RADIATION DOSAGE (If Supplied By Facility): CTDIvol = ( 44.99 ) mGy, DLP = ( 745.49 ) mGycm TECHNIQUE: Transaxial CT imaging of the brain was performed without administration of intravenous contrast material. Individualized dose optimization techniques were used for this CT. COMPARISON: Comparison is made with prior study dated July 10, 2017. FINDINGS: There is a 3.3 mm rounded nodular soft tissue density at the junction of the medial aspect of the left maxilla and left side of the nose. Normal calvarium. There is mild cerebral atrophy with widening of the extra-axial spaces and ventricular dilatation. Normal white matter tracts of the cerebral hemispheres. Normal basal ganglia and thalami. Normal brainstem. Normal cerebellum. There is no intracranial hemorrhage. There are no findings of an acute ischemic infarction. Normal visualized paranasal sinuses. CT/Brain/Head without Contrast IMPRESSION: Chronic involutional changes of the brain. Electronically Signed: Emanuel Ventura MD at 9:50 EDT Tel [phone], Service support ,
--- NOTE | 2018-01-09 09:07 | EKG12_ITS ---
Test Reason : NEURO Blood Pressure : / mmHG Vent. Rate : 073 BPM Atrial Rate : 073 BPM P-R Int : 172 ms QRS Dur : 086 ms QT Int : 384 ms P-R-T Axes : 058 053 074 degrees QTc Int : 423 ms Sinus rhythm with Premature atrial complexes Nonspecific T wave abnormality Abnormal ECG Confirmed by STEFANIE LEI, SUMA ([id number]), material expeditor DANIA FULLER ([id number] on 01/10/2018 9:53:13 AM Referred By: TRISTA Confirmed By:SUMA WATTS MD
[2018-01-09 09:15] LABS: Bedside Glucose 88 mg/dL (70-110)
[2018-01-09 09:26] LABS: Absolute Lymphocyte Count 2.46 X10^3/ul (0.83-4.51); Basophil# 0.03 X10^3/uL; Basophil% 0.3 % (0-1); Differential Indicated SCAN CRITERIA MET; Eosinophil# 0.25 X10^3/uL; Eosinophils% 2.4 % (0-5); Hematocrit 38.4 % (37-47); Hemoglobin 11.5 g/dl (12.0-15.0); Lymphocyte # 2.46 X10^3/ul (4.0); Lymphocyte % 23.8 % (19-41); Mean Corp Hgb Conc 29.9 g/gl (32-36); Mean Corpuscular Hgb 25.3 pg (27.0-32.0); Mean Corpuscular Volume 84.4 fL (81-99); Mean Platelet Vol. 8.5 fl (6.2-12.0); Monocyte# 0.55 X10^3/uL; Monocyte% 5.3 % (0-10); Neutrophil # 6.95 X10^3/uL (2.7-7.7); Neutrophil % 67.3 % (47-70); POSITIVE COUNT NO; POSITIVE DIFFERENTIAL NO; POSITIVE MORPHOLOGY YES; Platelet Count 334 K/mm3 (150-450); RBC Distribution Width CV 20.8 % (11.6-14.6); RBC Distribution Width SD 64.6 fl (35.1-43.9); Red Blood Count 4.55 M/mm3 (4.2-5.4); White Blood Count 10.3 K/mm3 (4.4-11.0)
[2018-01-09 09:29] LABS: Prothrombin Time (Protime)PT. 13.3 SECONDS (11.7-14.9)
[2018-01-09 09:30] LABS: Partial Thromboplast Time 30.1 Seconds (24.1-36.2)
[2018-01-09 09:39] LABS: Anion Gap 4 (5-15); BUN 31 mg/dL (7-18); BUN/Creat Ratio 33.8 RATIO (10-20); Calcium,Total 8.8 mg/dL (8.5-10.1); Chloride 105 mmol/L (98-107); Creatinine, Serum 0.92 mg/dL (0.55-1.02); EST Glomerular Filtration Rate 63 mL/min (>60); Est Glom Filt Rate - Afr Amer 77 mL/min (>60); Estimated Creatinine Clearance 41.14 ml/min; Glucose 97 mg/dL (74-106); Potassium 4.1 mmol/L (3.5-5.1); Sodium Level 141 mmol/L (136-145)
--- NOTE | 2018-01-09 10:40 | ED.VISSUMM ---
- ER Visit Summary Date of Service: 01/09/18 Chief Complaint: L Sided weakness History of Present Illness: The patient is a 77 F who was scheduled for a heart cath/PCI at 9 AM this morning. She developed left-sided weakness and numbness at around 8 AM that lasted approximately 30 minutes and then completely resolved. She denies previous similar symptoms. She does admit to a large amount of anxiety recently because of her heart cath. She denies previous history of TIA or stroke. She has not taken her medication this morning. She has no associated headache, recent falls, and did not have facial droop or slurred speech. She now feels back to normal. She does state that she has chronic left arm paresthesias from a previous stent but this is unchanged from baseline. Physical Examination: Pressure is within normal limits. She is not in distress. No facial droop. Neck is supple. Heart tones regular and without murmur lungs clear bilaterally. Abdomen is soft and nontender. No focal or lateralizing neuro findings. Strong pulses in all extremities. NIH is 0. No objective weakness or paresthesias in her extremities. Test Results: CT brain negative, chest x-ray negative except for what appears to be a residual right-sided infiltrate. She states that she had pneumonia twice in the past month and she was recently cleared by her primary care provider for the heart cath from a pneumonia standpoint. She denies cough or shortness of breath. No fever. She feels that her pneumonia has resolved. Labs are basically within normal limits except for mild anemia. Emergency Department Course and Treatment: CT brain is negative. Stroke team was not activated because her symptoms have not resolved. Her NIH remains 0 on my exam. I discussed the case with her cake press operator, Dr. Roblero who recommended an MRI brain, neurology consult that she can be cleared for her heart cath. I was unable to obtain an MRI in the emergency department so she was admitted as observation. Treatment Plan: Admit as observation Disposition: PCU observation Impression: Initial encounter TIA with history of hypertension and high cholesterol and known vascular disease This note was generated with [employer] dictation software. It may contain incorrect words, spelling, and punctuation that were not noted in review of the chart prior to signing ED Disposition - Plan for ED Patient: Chief Complaint: Neuro S/Sx Referrals: Vicente Raya III, MD [Primary Care Provider] -
--- NOTE | 2018-01-09 10:46 | ED.DCSUM_ITS ---
- ER Visit Summary Date of Service: 01/09/18 Chief Complaint: L Sided weakness History of Present Illness: The patient is a 77 F who was scheduled for a heart cath/PCI at 9 AM this morning. She developed left-sided weakness and numbness at around 8 AM that lasted approximately 30 minutes and then completely resolved. She denies previous similar symptoms. She does admit to a large amount of anxiety recently because of her heart cath. She denies previous history of TIA or stroke. She has not taken her medication this morning. She has no associated headache, recent falls, and did not have facial droop or slurred speech. She now feels back to normal. She does state that she has chronic left arm paresthesias from a previous stent but this is unchanged from baseline. Physical Examination: Pressure is within normal limits. She is not in distress. No facial droop. Neck is supple. Heart tones regular and without murmur lungs clear bilaterally. Abdomen is soft and nontender. No focal or lateralizing neuro findings. Strong pulses in all extremities. NIH is 0. No objective weakness or paresthesias in her extremities. Test Results: CT brain negative, chest x-ray negative except for what appears to be a residual right-sided infiltrate. She states that she had pneumonia twice in the past month and she was recently cleared by her primary care provider for the heart cath from a pneumonia standpoint. She denies cough or shortness of breath. No fever. She feels that her pneumonia has resolved. Labs are basically within normal limits except for mild anemia. Emergency Department Course and Treatment: CT brain is negative. Stroke team was not activated because her symptoms have not resolved. Her NIH remains 0 on my exam. I discussed the case with her sales support representative, Dr. Roblero who recommended an MRI brain, neurology consult that she can be cleared for her heart cath. I was unable to obtain an MRI in the emergency department so she was admitted as observation. Treatment Plan: Admit as observation Disposition: PCU observation Impression: Initial encounter TIA with history of hypertension and high cholesterol and known vascular disease This note was generated with [employer] dictation software. It may contain incorrect words, spelling, and punctuation that were not noted in review of the chart prior to signing ED Disposition - Plan for ED Patient: Chief Complaint: Neuro S/Sx Referrals: Vicente Raya III, MD [Primary Care Provider] -
--- NOTE | 2018-01-09 12:09 | PCM.HP.STD ---
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 The patient is a 77 year old F with past medical history as mentioned above presented to the emergency room because of left-sided body weakness. This morning around 8 AM, patient started having left-sided body weakness, started mainly on the left lower extremity when she was standing, extends up to her left upper extremity and she went down on the floor, associated with numbness of the left upper arm and left leg, lasted for about 20 minutes and resolved spontaneously and without aggravating or relieving factors. Today, she is scheduled to go for a repeat heart catheterization at 9 AM for elective angioplasty and stenting of the mid and distal LAD. The patient had unstable angina on December 22, 2017 for which she had cardiac catheterization with successful PTCA/MUSHTAQ to mid RCA. Upon arrival to ER, NIH score was 0. Her vital signs were stable. Her routine blood work was unremarkable. EKG revealed normal sinus rhythm without evidence of acute ischemic changes. Troponin was negative. CT scan brain showed no acute findings. Chest x-ray showed probable right middle lobe increased markings but she had a history of recent pneumonia 3 weeks ago, no acute findings. She is being admitted for TIA for evaluation. Past Medical History Past Medical History (Chronic Problems): Chronic Problems (Last Updated 01/09/18 @ 12:08 by Teresita Hanley MD) Carotid artery stenosis (Chronic) History of right-sided carotid endarterectomy (Chronic ~07/2014) left subclavian artery stent (Chronic ~03/2017) Stenosis of left subclavian artery (Chronic ~03/2017) stent the left subclavian with a 7 x 39 Poonam History of coronary artery stent placement (Chronic ~03/22/13) VOM-XEI-Nowr RCA OPF-HFB-Eygscm RCA 2000 and 2002 Atherosclerosis of coronary artery of [place] heart without angina pectoris (Chronic) [id number]-[id number] RCA 03/22/13 FTY-WXM-Zktbpa RCA 2000 and 2002 Chronic hypoxemic respiratory failure (Chronic) Stage 2 moderate COPD by GOLD classification (Chronic) VBI (vertebrobasilar insufficiency) (Chronic) Asthma (Chronic) HTN (hypertension) (Chronic) Hyperlipemia (Chronic) Tobacco abuse (Chronic) Obesities, morbid (Chronic) History of COPD (Chronic) History of diabetes mellitus, type II (Chronic) History of gastroesophageal reflux (GERD) (Chronic) Obstructive sleep apnea (Chronic) Medical History: Medical History (Last Updated 01/09/18 @ 12:08 by Teresita Hanley MD) Carotid artery stenosis (Chronic) I65.29 Stenosis of left subclavian artery (Chronic) Onset Date: ~03/2017 I77.1 stent the left subclavian with a 7 x 39 Poonam Atherosclerosis of coronary artery of [place] heart without angina pectoris (Chronic) I25.10 MOL-CKR-Kftc RCA 03/22/13 NYE-THL-Bjhrml RCA 2000 and 2002 Asthma (Chronic) J45.909 HTN (hypertension) (Chronic) I10 Hyperlipemia (Chronic) E78.5 Tobacco abuse (Chronic) Z72.0 Obesities, morbid (Chronic) E66.01 History of COPD (Chronic) Z87.09 History of diabetes mellitus, type II (Chronic) Z86.39 History of gastroesophageal reflux (GERD) (Chronic) Z87.19 Obstructive sleep apnea (Chronic) G47.33 Abdominal pain (Resolved) R10.9 Septic shock (Resolved) A41.9, R65.21 Allergies aspirin [ASA] Allergy (Severe, Verified 12/12/17 11:51) Hives bupropion [From Wellbutrin] Allergy (Verified 12/12/17 11:51) Unknown codeine Allergy (Verified 12/12/17 11:51) Unknown meperidine HCl [From Demerol] Allergy (Verified 12/12/17 11:51) Hives naproxen sodium [From Anaprox] Allergy (Verified 12/12/17 11:51) Unknown Penicillins [PCN] Allergy (Verified 12/12/17 11:51) Unknown propoxyphene HCl [From Darvon] Allergy (Verified 12/12/17 11:51) Hives Sulfa (Sulfonamide Antibiotics) Allergy (Verified 12/12/17 11:51) Unknown NSAIDS (Non-Steroidal Anti-Inflamma Adverse Reaction (Verified 12/12/17 11:51) Other Home Medications: Ambulatory Orders Medication Instructions Recorded Budesonide/Formoterol 80-4.5 2 puff INHALATION BID 02/28/13 [Symbicort 80-4.5 Mcg Inhaler] Citalopram [Celexa] 20 mg PO DAILY 02/28/13 Fluticasone 0.05% [Flonase Nasal 2 spray NASAL DAILY PRN 02/28/13 [place]] Montelukast [Singulair] 10 mg PO QHS 07/08/14 Albuterol IH (ProAir) [Proair Hfa] 2 puff INHALATION Q6H PRN PRN 07/15/14 Pramipexole Di-HCl [Mirapex] 1 mg PO TID PRN 09/19/16 Atorvastatin Calcium [Lipitor] 40 mg PO QHS #30 tab 10/03/16 Lorazepam [Ativan] 0.5 mg PO QHS PRN PRN 11/01/16 Ferrous Gluconate 325 mg PO BIDCM 11/18/17 Tolterodine Tartrate [Detrol LA] 4 mg PO DAILY 11/18/17 omeprazole magnesium 20 mg 20 mg PO DAILY 12/08/17 tablet,delayed release furosemide 20 mg tablet 20 mg PO DAILY #30 tab 12/12/17 nitroglycerin 0.4 mg sublingual 0.4 mg SUBLINGUAL Q5M PRN #25 tab 12/12/17 tablet Cholecalciferol (Vitamin D3) 1,000 unit PO DAILY 12/22/17 [Vitamin D3] Hydrocodone/Acetaminophen 1 tab PO BID PRN PRN 12/22/17 [Hydrocodone-Acetamin 5-325 mg] clopidogrel 75 mg tablet 75 mg PO BID #60 tab 12/23/17 metoprolol tartrate 25 mg tablet 12.5 mg PO BID #30 tab 12/23/17 Cyanocobalamin (Vitamin B-12) 1,000 mcg IM QMONTH 01/06/18 [Cyanocobalamin Injection] Surgical History: Surgical History (Last Reviewed 11/21/17 @ 11:31 by Stephon Banda MD) History of right-sided carotid endarterectomy (Chronic) Onset Date: ~07/2014 Z98.890 left subclavian artery stent (Chronic) Onset Date: ~03/2017 History of coronary artery stent placement (Chronic) Onset Date: ~03/22/13 Z95.5 CNY-NFW-Udml RCA FQT-ZFI-Nkqjjr RCA 2000 and 2002 History of cholecystectomy (Resolved) Z98.890, Z90.49 History of section (Resolved) Z98.891 H/O bariatric surgery (Resolved) Z98.84 History of right knee joint replacement Z96.651 Surgical History: angioplasty, - - 3 heart stents, bariatric surgery and , carotid endarterectemy Psychiatric History: No pertinent psych hx 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 Lives: Spouse/ Significant Other Smoking Status: Current every day smoker Alcohol: None Drugs: None - *Family History Maternal Family History: Family History (Last Reviewed 05/19/17 @ 13:47 by Sayda Larson) Mother CVA (cerebral vascular accident) Father Asthma Hypertension High blood cholesterol level Arthritis History Items: Stroke Review of Systems Constitutional: Denies: Anorexia, Chills, Fever, Weakness Eyes: Denies: Blurred vision, Double vision, Drainage, Redness HEENT: Denies: Difficulty Hearing, Ear Pain, Eye Pain, Nasal Congestion, Sore Throat Cardiovascular: Denies: Chest Pain, Chest Pressure, Edema, Light Headedness, Palpitations, Syncope Respiratory: Denies: Cough, Pleuritic Pain, Shortness of Breath, Sputum production, Wheezing Gastrointestinal: Denies: Abdominal Pain, Constipation, Diarrhea, Nausea, Vomiting Genitourinary: Denies: Dysuria, Frequency, Hematuria Musculoskeletal: Denies: Arm Pain, Back Pain, Foot Pain Skin: Denies: Dryness, Rash Neurological: Reports: Focal weakness, Numbness. Denies: Balance problems, Double vision, Change in Speech, Slurred speech, Confusion, Difficulty swallowing, Headaches, Incoordination Psychiatric: Reports: Anxiety, Depression Endocrine: Denies: Change in Body Habitus, Polydipsia VTE Information - Inpt Only VTE Present on Admission: No VTE Mechan Device Prophylaxis: None VTE Pharm Prophylaxis ordered?: Yes - Physical Exam General: Alert, Oriented x3, Cooperative, No apparent distress HEENT: Atraumatic, PERRLA, EOMI, Normocephalic Oral: Moist Mucosa, No Gingival or Mucosal Lesions/ Ulcerations Neck: Supple, No JVD, Negative Carotid Bruits, Trachea Midline, Thyroid Normal Size and Texture Lungs: Clear to auscultation, No rhonchi, No wheeze, No rales, Diminished Cardiovascular: Regular rate, Regular Rhythm, Normal S1, Normal S2, PMI Normal Abdomen: Bowel Sounds Present, Soft, Non Tender, Non-Distended, No Hepato-splenomegaly, Obese Extremities: No clubbing, No cyanosis, No edema Skin: No rashes, No breakdown Lymphatic: No Cervical, Supraclavicular, or Inguinal Adenopathy Neurological: Cranial nerves II-XII grossly intact, Motor Exam 5/5 strength throughout Psych/Mental Status: Normal Affect, Appropriate, Alert and oriented to time, place, person, mood and affect Vital Signs Temp Pulse Resp BP Pulse Ox 97.7 F L 70 21 H 121/57 H 93 01/09/18 08:58 01/09/18 10:50 01/09/18 10:50 01/09/18 10:50 01/09/18 10:50 Oxygen Delivery Method Room Air Weight: 253 lb 4.978 oz Body Mass Index (BMI) 46.3 Finger Stick Blood Glucose 88 Laboratory Tests Past 24 Hrs 01/09/18 01/09/18 01/09/18 09:00 09:00 09:00 WBC 10.3 RBC 4.55 Hgb 11.5 L Hct 38.4 MCV 84.4 MCH 25.3 L MCHC 29.9 L RDW 20.8 H RDW Differential 64.6 H Plt Count 334 MPV 8.5 Immature Gran % (Auto) 0.900 Neut % (Auto) 67.3 Lymph % (Auto) 23.8 [place] % (Auto) 5.3 Eos % (Auto) 2.4 Baso % (Auto) 0.3 Absolute Neuts (auto) 7.0 Absolute Lymphs (auto) 2.46 Total Counted Not Reportable Differential Comment COMMENT PT 13.3 INR 1.0 APTT 30.1 Sodium 141 Potassium 4.1 Chloride 105 Carbon Dioxide 32.0 Anion Gap 4 L BUN 31 H Creatinine 0.92 Estim Creat Clear Calc 41.14 Est GFR (MDRD) Af Amer 77 Est GFR (MDRD) Non-Af 63 BUN/Creatinine Ratio 33.8 H Glucose 97 Calcium 8.8 Troponin I < 0.015 POC Glucose 01/09/18 09:13 POC Glucose 88 Clinical Impression(s) from Imaging Studies Brain CT 01/09/18 09:07 IMPRESSION: Chronic involutional changes of the brain. Electronically Signed: Emanuel Ventura MD at 9:50 EDT Tel [phone], Service support , Chest X-Ray 01/09/18 09:07 IMPRESSION: Increased markings in the right middle lobe with areas of confluence. A right middle lobe infiltrate should be ruled out. Radiographic follow-up is recommended. Electronically Signed: Emanuel Ventura MD at 10:13 EDT Tel [phone], Service support , Assessment/Plan All Active Problems (Last Updated 01/09/18 @ 12:08 by Teresita Hanley MD) History of cholecystectomy (Resolved) History of section (Resolved) H/O bariatric surgery (Resolved) Abdominal pain (Resolved) Septic shock (Resolved) This is a 77 years old female patient presented to the emergency room because of left-sided body weakness and she is being admitted for TIA for evaluation. #1 TIA/left-sided weakness: Symptoms resolved. She has no focal deficit on physical examination. Initial CT scan brain showed no acute findings. EKG reviewed, revealed normal sinus rhythm and no acute ischemic changes. Vital signs are stable, blood pressure stable. She had a history of right carotid stenosis status post right carotid endarterectomy. She had 2D echocardiogram done on December 16, 2017 that revealed ejection fraction of 65%, stage I diastolic dysfunction, other colbert unremarkable. Plan: Admit to PCU for observation, cardiac monitoring, NIH stroke scale, monitor blood pressure, continue Plavix twice daily, continue Lipitor, MRI brain, MRA of the head and neck, neurology consult, PT OT evaluation and treatment. I do not think that we need to repeat the echocardiogram at this time as it was done around 3 weeks ago. #2 CAD status post stents: Patient had unstable angina on December 22, 2017, status post PTCA/MUSHTAQ to RCA. She was scheduled to go for cardiac catheterization today for elective angioplasty and stenting of mid and distal RCA. This was canceled. EKG reviewed, revealed no acute ischemic changes. Troponin is negative. Plan to continue Plavix, Lipitor, metoprolol. #3 COPD: Stable, maintaining pulse ox on room air. Plan for albuterol as needed, continue Symbicort. #4 hypertension: Blood pressure stable, continue home medications. #5 GERD: Continue PPI. #6 tobacco abuse: NicoDerm patch. #7 hyperlipidemia: Continue statins. #8 DVT prophylaxis: Subcu Lovenox. This note was generated with [employer] dictation software. It may contain incorrect words, spelling, and punctuation that were not noted in checking the note before signing. Code Visit OBSV E&M: 42960 Initial observation care L3
--- NOTE | 2018-01-09 12:15 | MRI_ITS ---
STUDY: MRA OF THE HEAD WITHOUT CONTRAST REASON FOR EXAM: Female, 77 years old. Left-sided weakness TECHNIQUE: 3-D mbut-mg-mskadr (TOF) imaging was performed with MIPs. The study was performed unenhanced. COMPARISON: None. FINDINGS: Limited study due to artifact. Normal bilateral petrous carotid arteries. Normal right cavernous carotid artery with a normal supraclinoid bifurcation. Normal left cavernous carotid artery with a normal supraclinoid bifurcation. Segmental narrowing of the distal right A1 segments of the anterior cerebral artery. Normal left A1 segments of the anterior cerebral artery. Normal intact anterior communicating artery (ACOM). Normal bilateral A2 segments of the anterior cerebral arteries. Mild multifocal plaquing of the right M1 and M2 segments of the middle cerebral arteries, with a normal M1 bifurcation. Mild multifocal plaquing of the left M1 and M2 segments of the middle cerebral arteries, with a normal M1 bifurcation. Normal right posterior communicating artery (PCOM). Normal left posterior communicating artery (PCOM). Normal left vertebral. Diffusely narrowed distal right vertebral. Normal basilar artery with a normal basilar bifurcation. The visualized bilateral superior cerebellar (SCA) arteries are normal. Normal bilateral P1, P2 and visualized P3 segments of the posterior cerebral arteries. There is no demonstrated aneurysm of the [place]. There is no major vessel occlusion or hemodynamically significant stenosis. There is no demonstrated abnormality of the visualized brain. MRI/MRA Head ONLY without Contrast IMPRESSION: Narrowing of the distal A1 segment of the right anterior cerebral which may be exaggerated by artifact. CTA would be helpful for further assessment if clinically warranted Narrowing of the distal right vertebral Electronically Signed: Gabino Marques MD at 16:46 EDT , Service support ,
--- NOTE | 2018-01-09 12:15 | HP.PCM_ITS ---
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 The patient is a 77 year old F with past medical history as mentioned above presented to the emergency room because of left-sided body weakness. This morning around 8 AM, patient started having left-sided body weakness, started mainly on the left lower extremity when she was standing, extends up to her left upper extremity and she went down on the floor, associated with numbness of the left upper arm and left leg, lasted for about 20 minutes and resolved spontaneously and without aggravating or relieving factors. Today, she is scheduled to go for a repeat heart catheterization at 9 AM for elective angioplasty and stenting of the mid and distal LAD. The patient had unstable angina on December 22, 2017 for which she had cardiac catheterization with successful PTCA/MUSHTAQ to mid RCA. Upon arrival to ER, NIH score was 0. Her vital signs were stable. Her routine blood work was unremarkable. EKG revealed normal sinus rhythm without evidence of acute ischemic changes. Troponin was negative. CT scan brain showed no acute findings. Chest x-ray showed probable right middle lobe increased markings but she had a history of recent pneumonia 3 weeks ago, no acute findings. She is being admitted for TIA for evaluation. Past Medical History Past Medical History (Chronic Problems): Chronic Problems (Last Updated 01/09/18 @ 12:08 by Teresita Hanley MD) Carotid artery stenosis (Chronic) History of right-sided carotid endarterectomy (Chronic ~07/2014) left subclavian artery stent (Chronic ~03/2017) Stenosis of left subclavian artery (Chronic ~03/2017) stent the left subclavian with a 7 x 39 Poonam History of coronary artery stent placement (Chronic ~03/22/13) OIP-UQH-Inak RCA RKD-KFE-Imnxdo RCA 2000 and 2002 Atherosclerosis of coronary artery of [place] heart without angina pectoris (Chronic) OFM-ARY-Tweu RCA 03/22/13 GME-IKI-Epuuyv RCA 2000 and 2002 Chronic hypoxemic respiratory failure (Chronic) Stage 2 moderate COPD by GOLD classification (Chronic) VBI (vertebrobasilar insufficiency) (Chronic) Asthma (Chronic) HTN (hypertension) (Chronic) Hyperlipemia (Chronic) Tobacco abuse (Chronic) Obesities, morbid (Chronic) History of COPD (Chronic) History of diabetes mellitus, type II (Chronic) History of gastroesophageal reflux (GERD) (Chronic) Obstructive sleep apnea (Chronic) Medical History: Medical History (Last Updated 01/09/18 @ 12:08 by Teresita Hanley MD) Carotid artery stenosis (Chronic) I65.29 Stenosis of left subclavian artery (Chronic) Onset Date: ~03/2017 I77.1 stent the left subclavian with a 7 x 39 Poonam Atherosclerosis of coronary artery of [place] heart without angina pectoris (Chronic) I25.10 BBF-MWC-Eaho RCA 03/22/13 XPJ-SVW-Ybsznh RCA 2000 and 2002 Asthma (Chronic) J45.909 HTN (hypertension) (Chronic) I10 Hyperlipemia (Chronic) E78.5 Tobacco abuse (Chronic) Z72.0 Obesities, morbid (Chronic) E66.01 History of COPD (Chronic) Z87.09 History of diabetes mellitus, type II (Chronic) Z86.39 History of gastroesophageal reflux (GERD) (Chronic) Z87.19 Obstructive sleep apnea (Chronic) G47.33 Abdominal pain (Resolved) R10.9 Septic shock (Resolved) A41.9, R65.21 Allergies aspirin [ASA] Allergy (Severe, Verified 12/12/17 11:51) Hives bupropion [From Wellbutrin] Allergy (Verified 12/12/17 11:51) Unknown codeine Allergy (Verified 12/12/17 11:51) Unknown meperidine HCl [From Demerol] Allergy (Verified 12/12/17 11:51) Hives naproxen sodium [From Anaprox] Allergy (Verified 12/12/17 11:51) Unknown Penicillins [PCN] Allergy (Verified 12/12/17 11:51) Unknown propoxyphene HCl [From Darvon] Allergy (Verified 12/12/17 11:51) Hives Sulfa (Sulfonamide Antibiotics) Allergy (Verified 12/12/17 11:51) Unknown NSAIDS (Non-Steroidal Anti-Inflamma Adverse Reaction (Verified 12/12/17 11:51) Other Home Medications: Ambulatory Orders Medication Instructions Recorded Budesonide/Formoterol 80-4.5 2 puff INHALATION BID 02/28/13 [Symbicort 80-4.5 Mcg Inhaler] Citalopram [Celexa] 20 mg PO DAILY 02/28/13 Fluticasone 0.05% [Flonase Nasal 2 spray NASAL DAILY PRN 02/28/13 [place]] Montelukast [Singulair] 10 mg PO QHS 07/08/14 Albuterol IH (ProAir) [Proair Hfa] 2 puff INHALATION Q6H PRN PRN 07/15/14 Pramipexole Di-HCl [Mirapex] 1 mg PO TID PRN 09/19/16 Atorvastatin Calcium [Lipitor] 40 mg PO QHS #30 tab 10/03/16 Lorazepam [Ativan] 0.5 mg PO QHS PRN PRN 11/01/16 Ferrous Gluconate 325 mg PO BIDCM 11/18/17 Tolterodine Tartrate [Detrol LA] 4 mg PO DAILY 11/18/17 omeprazole magnesium 20 mg 20 mg PO DAILY 12/08/17 tablet,delayed release furosemide 20 mg tablet 20 mg PO DAILY #30 tab 12/12/17 nitroglycerin 0.4 mg sublingual 0.4 mg SUBLINGUAL Q5M PRN #25 tab 12/12/17 tablet Cholecalciferol (Vitamin D3) 1,000 unit PO DAILY 12/22/17 [Vitamin D3] Hydrocodone/Acetaminophen 1 tab PO BID PRN PRN 12/22/17 [Hydrocodone-Acetamin 5-325 mg] clopidogrel 75 mg tablet 75 mg PO BID #60 tab 12/23/17 metoprolol tartrate 25 mg tablet 12.5 mg PO BID #30 tab 12/23/17 Cyanocobalamin (Vitamin B-12) 1,000 mcg IM QMONTH 01/06/18 [Cyanocobalamin Injection] Surgical History: Surgical History (Last Reviewed 11/21/17 @ 11:31 by Stephon Banda MD) History of right-sided carotid endarterectomy (Chronic) Onset Date: ~07/2014 Z98.890 left subclavian artery stent (Chronic) Onset Date: ~03/2017 History of coronary artery stent placement (Chronic) Onset Date: ~03/22/13 Z95.5 QMT-WYS-Jkyf RCA IMN-EYD-Bokpom RCA 2000 and 2002 History of cholecystectomy (Resolved) Z98.890, Z90.49 History of section (Resolved) Z98.891 H/O bariatric surgery (Resolved) Z98.84 History of right knee joint replacement Z96.651 Surgical History: angioplasty, - - 3 heart stents, bariatric surgery and c- section, carotid endarterectemy Psychiatric History: No pertinent psych hx 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 Lives: Spouse/ Significant Other Smoking Status: Current every day smoker Alcohol: None Drugs: None - *Family History Maternal Family History: Family History (Last Reviewed 05/19/17 @ 13:47 by Sayda Larson) Mother CVA (cerebral vascular accident) Father Asthma Hypertension High blood cholesterol level Arthritis History Items: Stroke Review of Systems Constitutional: Denies: Anorexia, Chills, Fever, Weakness Eyes: Denies: Blurred vision, Double vision, Drainage, Redness HEENT: Denies: Difficulty Hearing, Ear Pain, Eye Pain, Nasal Congestion, Sore Throat Cardiovascular: Denies: Chest Pain, Chest Pressure, Edema, Light Headedness, Palpitations, Syncope Respiratory: Denies: Cough, Pleuritic Pain, Shortness of Breath, Sputum production, Wheezing Gastrointestinal: Denies: Abdominal Pain, Constipation, Diarrhea, Nausea, Vomiting Genitourinary: Denies: Dysuria, Frequency, Hematuria Musculoskeletal: Denies: Arm Pain, Back Pain, Foot Pain Skin: Denies: Dryness, Rash Neurological: Reports: Focal weakness, Numbness. Denies: Balance problems, Double vision, Change in Speech, Slurred speech, Confusion, Difficulty swallowing, Headaches, Incoordination Psychiatric: Reports: Anxiety, Depression Endocrine: Denies: Change in Body Habitus, Polydipsia VTE Information - Inpt Only VTE Present on Admission: No VTE Mechan Device Prophylaxis: None VTE Pharm Prophylaxis ordered?: Yes - Physical Exam General: Alert, Oriented x3, Cooperative, No apparent distress HEENT: Atraumatic, PERRLA, EOMI, Normocephalic Oral: Moist Mucosa, No Gingival or Mucosal Lesions/ Ulcerations Neck: Supple, No JVD, Negative Carotid Bruits, Trachea Midline, Thyroid Normal Size and Texture Lungs: Clear to auscultation, No rhonchi, No wheeze, No rales, Diminished Cardiovascular: Regular rate, Regular Rhythm, Normal S1, Normal S2, PMI Normal Abdomen: Bowel Sounds Present, Soft, Non Tender, Non-Distended, No Hepato- splenomegaly, Obese Extremities: No clubbing, No cyanosis, No edema Skin: No rashes, No breakdown Lymphatic: No Cervical, Supraclavicular, or Inguinal Adenopathy Neurological: Cranial nerves II-XII grossly intact, Motor Exam 5/5 strength throughout Psych/Mental Status: Normal Affect, Appropriate, Alert and oriented to time, place, person, mood and affect Vital Signs Temp Pulse Resp BP Pulse Ox 97.7 F L 70 21 H 121/57 H 93 01/09/18 08:58 01/09/18 10:50 01/09/18 10:50 01/09/18 10:50 01/09/18 10:50 Oxygen Delivery Method Room Air Weight: 253 lb 4.978 oz Body Mass Index (BMI) 46.3 Finger Stick Blood Glucose 88 Laboratory Tests Past 24 Hrs 01/09/18 01/09/18 01/09/18 09:00 09:00 09:00 WBC 10.3 RBC 4.55 Hgb 11.5 L Hct 38.4 MCV 84.4 MCH 25.3 L MCHC 29.9 L RDW 20.8 H RDW Differential 64.6 H Plt Count 334 MPV 8.5 Immature Gran % (Auto) 0.900 Neut % (Auto) 67.3 Lymph % (Auto) 23.8 [place] % (Auto) 5.3 Eos % (Auto) 2.4 Baso % (Auto) 0.3 Absolute Neuts (auto) 7.0 Absolute Lymphs (auto) 2.46 Total Counted Not Reportable Differential Comment COMMENT PT 13.3 INR 1.0 APTT 30.1 Sodium 141 Potassium 4.1 Chloride 105 Carbon Dioxide 32.0 Anion Gap 4 L BUN 31 H Creatinine 0.92 Estim Creat Clear Calc 41.14 Est GFR (MDRD) Af Amer 77 Est GFR (MDRD) Non-Af 63 BUN/Creatinine Ratio 33.8 H Glucose 97 Calcium 8.8 Troponin I < 0.015 POC Glucose 01/09/18 09:13 POC Glucose 88 Clinical Impression(s) from Imaging Studies Brain CT 01/09/18 09:07 IMPRESSION: Chronic involutional changes of the brain. Electronically Signed: Emanuel Ventura MD at 9:50 EDT Tel [phone], Service support , Chest X-Ray 01/09/18 09:07 IMPRESSION: Increased markings in the right middle lobe with areas of confluence. A right middle lobe infiltrate should be ruled out. Radiographic follow-up is recommended. Electronically Signed: Emanuel Ventura MD at 10:13 EDT Tel [phone], Service support , Assessment/Plan All Active Problems (Last Updated 01/09/18 @ 12:08 by Teresita Hanley MD) History of cholecystectomy (Resolved) History of section (Resolved) H/O bariatric surgery (Resolved) Abdominal pain (Resolved) Septic shock (Resolved) This is a 77 years old female patient presented to the emergency room because of left-sided body weakness and she is being admitted for TIA for evaluation. #1 TIA/left-sided weakness: Symptoms resolved. She has no focal deficit on physical examination. Initial CT scan brain showed no acute findings. EKG reviewed, revealed normal sinus rhythm and no acute ischemic changes. Vital signs are stable, blood pressure stable. She had a history of right carotid stenosis status post right carotid endarterectomy. She had 2D echocardiogram done on December 16, 2017 that revealed ejection fraction of 65%, stage I diast olic dysfunction, other colbert unremarkable. Plan: Admit to PCU for observation, cardiac monitoring, NIH stroke scale, monitor blood pressure, continue Plavix twice daily, continue Lipitor, MRI brain, MRA of the head and neck, neurology consult, PT OT evaluation and treatment. I do not think that we need to repeat the echocardiogram at this time as it was done around 3 weeks ago. #2 CAD status post stents: Patient had unstable angina on December 22, 2017, status post PTCA/MUSHTAQ to RCA. She was scheduled to go for cardiac catheterization today for elective angioplasty and stenting of mid and distal RCA. This was canceled. EKG reviewed, revealed no acute ischemic changes. Troponin is negative. Plan to continue Plavix, Lipitor, metoprolol. #3 COPD: Stable, maintaining pulse ox on room air. Plan for albuterol as needed, continue Symbicort. #4 hypertension: Blood pressure stable, continue home medications. #5 GERD: Continue PPI. #6 tobacco abuse: NicoDerm patch. #7 hyperlipidemia: Continue statins. #8 DVT prophylaxis: Subcu Lovenox. This note was generated with [employer] dictation software. It may contain incorrect words, spelling, and punctuation that were not noted in checking the note before signing. Code Visit OBSV E&M: 67598 Initial observation care L3
--- NOTE | 2018-01-09 12:15 | MRI_ITS ---
STUDY: MRA NECK WITH AND WITHOUT CONTRAST REASON FOR EXAM: Female, 77 years old. Weakness TECHNIQUE: 3-D [id number]-[id number] (TOF) imaging was performed in an 1.5 T MRI scanner. 11 ml of Gadavist was administered for the contrast enhanced images. COMPARISON: CTA 03/03/2017 FINDINGS: RIGHT CAROTID ARTERIES: Normal right common carotid artery (CCA). Normal right common carotid bulb. Normal origin of the right internal carotid (ICA) artery without a hemodynamically significant stenosis. Normal visualized cervical portion of the right internal carotid artery. Normal origin of the right external carotid artery (ECA). LEFT CAROTID ARTERIES: Normal left common carotid artery (CCA). An eccentric stenosis is present involving the carotid bulb and the proximal internal carotid artery with underlying proximal ICA narrowing of 50%. Residual lumen diameter is 2.2 mm and poststenotic diameter is 4.5 mm. Normal visualized cervical portion of the left internal carotid artery. Normal origin of the left external carotid artery (ECA). VERTEBRAL ARTERIES: Normal antegrade flow within the bilateral vertebral artery without a hemodynamically significant stenosis. MRI/MRA Neck WITH and W/O Contrast IMPRESSION: Eccentric 50% stenosis of the proximal left internal carotid artery. NASCET criteria was used. Electronically Signed: Kahlil Bucio MD at 1:04 EDT Tel , Service support ,
--- NOTE | 2018-01-09 12:15 | MRI_ITS ---
STUDY: MRI BRAIN WITHOUT CONTRAST REASON FOR EXAM: Female, 77 years old. Left-sided weakness TECHNIQUE: Standardized multiplanar fat and water weighted pulse sequences were obtained. COMPARISON: January 09, 2018 FINDINGS: Normal size of the ventricles and extra-axial spaces for the patient's age. Mild periventricular white matter ischemic changes without evidence for acute infarct. Normal bilateral basal ganglia. Normal thalami. There is no extra-axial fluid accumulation. Normal flow voids within the major intracranial circulation suggesting patency by spin echo criteria. Partial empty sella deformity. Normal, infundibular stalk, optic chiasm and hypothalamus. Normal tectal plate and pineal gland. Normal midbrain, mechelle and medulla. Normal cerebellum. Normal basal cisterns. Normal bilateral temporal bones. Normal bilateral internal auditory canals. Small amount of fluid in the mastoids which may be consistent with inflammatory changes No demonstrated orbital abnormality, within the constraints of a routine brain study. Normal visualized paranasal sinuses. Normal calvarium and skull base. Normal visualized soft tissue structures. Normal visualized upper cervical spine. MRI/Brain without Contrast IMPRESSION: Mild periventricular white matter ischemic changes without evidence for acute infarct. Electronically Signed: Gabino Marques MD at 16:42 EDT , Service support ,
[2018-01-09] MEDS: Albuterol 2.5 MG/3 ML VIAL.NEB. INHALATION ×2 (13:45→18:56)
--- NOTE | 2018-01-09 14:00 | NURSING ---
to MRI per , radiology staff in [facility]
[2018-01-09] MEDS: 0.9% Normal Saline 1,000 ML 75 ML IV (16:34)
[2018-01-09] MEDS: Ferrous Gluconate 324 MG Tablet PO (16:36)
[2018-01-09] MEDS: Citalopram 20 MG Tablet PO (16:38)
[2018-01-09] MEDS: Tolterodine Tartrate 4 MG CAP.SA PO (16:38)
[2018-01-09] MEDS: Enoxaparin 40 MG/0.4 ML Syringe SC (16:40)
[2018-01-09] MEDS: Budesonide Respules 0.5 MG/2 ML AMPUL.NEB. INHALATION (18:56)
[2018-01-09] MEDS: Pramipexole Di-HCl 1 MG Tablet 2 MG PO (22:24)
[2018-01-09] MEDS: Atorvastatin Calcium 40 MG Tablet PO (22:24)
[2018-01-09] MEDS: Clopidogrel Bisulfate 75 MG Tablet PO (22:24)
[2018-01-09] MEDS: Montelukast 10 MG Tablet PO (22:24)
[2018-01-10] VITALS (9 sets, daily range): BP systolic 91–109; BP diastolic 46–56; PULSE 72–83; RESP 14–21; TEMP 36.8–37.1; O2SAT 90–98
[2018-01-10] MEDS: Albuterol 2.5 MG/3 ML VIAL.NEB. INHALATION ×2 (03:51→07:28)
[2018-01-10] MEDS: Budesonide Respules 0.5 MG/2 ML AMPUL.NEB. INHALATION (07:28)
[2018-01-10] MEDS: Ferrous Gluconate 324 MG Tablet PO (08:56)
[2018-01-10] MEDS: 0.9% NaCl Peripheral Flush Adult/Peds IV (08:56)
--- NOTE | 2018-01-10 10:18 | CASEMGMT ---
RN CM Assessment. Intro role of CM to patient, known to CM from previous admissions. Pt presented with Shortness of breath, L sided weakness, r/o TIA. MRI neg for CVA. Pt wears 2L NC @ home. PCP: Dr. Vicente Raya III [facility]acy: [facility] Prescription coverage: yes LNOK: , daughter DME: tub chair, grab bars, walker, cane, Oxygen through [employer] with portability. Living arrangements: one floor apartment built in daughter's home for pt and her . Transportation: pt's family or friends drive pt -Pt states she was doing well @ home. Uses DME for ambulation, no home health and pt declines stating she does not need. Is able to make f/u appointments. RN CM discussed smoking history as last admission discussed reducing number of cigarettes in effort to reduce smoking. Pt states she has significantly reduced her smoking- states she switched to pipe smoking but less often than her previous cigarettes. . Pt showed RN CM that she could use incentive spirometer. RN CM gave encouragement to continue progress. DC PLAN: Home with family support.
[2018-01-10] MEDS: Citalopram 20 MG Tablet PO (11:08)
[2018-01-10] MEDS: Tolterodine Tartrate 4 MG CAP.SA PO (11:09)
[2018-01-10] MEDS: Metoprolol Tartrate 25 MG Tablet 12.5 MG PO (11:09)
[2018-01-10] MEDS: Enoxaparin 40 MG/0.4 ML Syringe SC (11:10)
[2018-01-10] MEDS: Pantoprazole Sodium 20 MG Tablet PO (11:11)
[2018-01-10] MEDS: Clopidogrel Bisulfate 75 MG Tablet PO (11:11)
--- NOTE | 2018-01-10 11:24 | CON.PCM_ITS ---
Reason for Consult Date of Consultation: 01/10/18 Reason for Consultation: Left-sided paresthesias History of Present Illness: The patient is a 77 year old right-handed female who was preparing to come to the hospital yesterday morning for cardiac catheterization when she began to exp erience left leg paresthesias associated with bilateral lip paresthesias as well as lightheadedness. Her recent medical history is been fairly tumultuous apparently she has had several hospitalizations. He was admitted for TIA evaluation and she has not yet undergone cardiac catheterization. Also feels back to normal. She cannot take aspirin, she is on 2 Plavix daily as well as statin at home. per admit h&p:The patient is a 77 year old F with past medical history as mentioned above presented to the emergency room because of left-sided body weakness. This morning around 8 AM, patient started having left-sided body weakness, started mainly on the left lower extremity when she was standing, extends up to her left upper extremity and she went down on the floor, associated with numbness of the left upper arm and left leg, lasted for about 20 minutes and resolved spontaneously and without aggravating or relieving factors. Today, she is scheduled to go for a repeat heart catheterization at 9 AM for elective angioplasty and stenting of the mid and distal LAD. The patient had unstable angina on December 22, 2017 for which she had cardiac catheterization with successful PTCA/MUSHTAQ to mid RCA. Upon arrival to ER, NIH score was 0. Her vital signs were stable. Her routine blood work was unremarkable. EKG revealed normal sinus rhythm without evidence of acute ischemic changes. Troponin was negative. CT scan brain showed no acute findings. Chest x-ray showed probable right middle lobe increased markings but she had a history of recent pneumonia 3 weeks ago, no acute findings. She is being admitted for TIA for evaluation. Past Medical History Past Medical History (Chronic Problems): Chronic Problems (Last Updated 01/10/18 @ 11:56 by Teresita Hanley MD) VBI (vertebrobasilar insufficiency) (Chronic) Stage 2 moderate COPD by GOLD classification (Chronic) Chronic hypoxemic respiratory failure (Chronic) Obesities, morbid (Chronic) Medical History: Medical History (Last Reviewed 01/10/18 @ 11:20 by Teto Garcia MD) Carotid artery stenosis (Chronic) I65.29 Stenosis of left subclavian artery (Chronic) Onset Date: ~03/2017 I77.1 stent the left subclavian with a 7 x 39 [place] Atherosclerosis of coronary artery of [place] heart without angina pectoris (Chronic) I25.10 [id number] RCA 03/22/13 [id number] RCA 2000 and 2002 Asthma (Chronic) J45.909 HTN (hypertension) (Chronic) I10 Hyperlipemia (Chronic) E78.5 Tobacco abuse (Chronic) Z72.0 Obesities, morbid (Chronic) E66.01 History of COPD (Chronic) Z87.09 History of diabetes mellitus, type II (Chronic) Z86.39 History of gastroesophageal reflux (GERD) (Chronic) Z87.19 Obstructive sleep apnea (Chronic) G47.33 Abdominal pain (Resolved) R10.9 Septic shock (Resolved) A41.9, R65.21 Allergies aspirin [ASA] Allergy (Severe, Verified 12/12/17 11:51) Hives bupropion [From Wellbutrin] Allergy (Verified 12/12/17 11:51) Unknown codeine Allergy (Verified 12/12/17 11:51) Unknown meperidine HCl [From Demerol] Allergy (Verified 12/12/17 11:51) Hives naproxen sodium [From Anaprox] Allergy (Verified 12/12/17 11:51) Unknown Penicillins [PCN] Allergy (Verified 12/12/17 11:51) Unknown propoxyphene HCl [From Darvon] Allergy (Verified 12/12/17 11:51) Hives Sulfa (Sulfonamide Antibiotics) Allergy (Verified 12/12/17 11:51) Unknown NSAIDS (Non-Steroidal Anti-Inflamma Adverse Reaction (Verified 12/12/17 11:51) Other Home Medications: Ambulatory Orders Medication Instructions Recorded Budesonide/Formoterol 80-4.5 2 puff INHALATION BID 02/28/13 [Symbicort 80-4.5 Mcg Inhaler] Citalopram [Celexa] 20 mg PO DAILY 02/28/13 Fluticasone 0.05% [Flonase Nasal 2 spray NASAL DAILY PRN 02/28/13 Disney] Montelukast [Singulair] 10 mg PO QHS 07/08/14 Albuterol IH (ProAir) [Proair Hfa] 2 puff INHALATION Q6H PRN PRN 07/15/14 Pramipexole Di-HCl [Mirapex] 2 mg PO TID PRN 09/19/16 Atorvastatin Calcium [Lipitor] 40 mg PO QHS #30 tab 10/03/16 Lorazepam [Ativan] 0.5 mg PO QHS PRN PRN 11/01/16 Ferrous Gluconate 325 mg PO BIDCM 11/18/17 Tolterodine Tartrate [Detrol LA] 4 mg PO DAILY 11/18/17 omeprazole magnesium 20 mg 20 mg PO DAILY 12/08/17 tablet,delayed release furosemide 20 mg tablet 20 mg PO DAILY #30 tab 12/12/17 nitroglycerin 0.4 mg sublingual 0.4 mg SUBLINGUAL Q5M PRN #25 tab 12/12/17 tablet Cholecalciferol (Vitamin D3) 1,000 unit PO DAILY 12/22/17 [Vitamin D3] Hydrocodone/Acetaminophen 1 tab PO BID PRN PRN 12/22/17 [Hydrocodone-Acetamin 5-325 mg] clopidogrel 75 mg tablet 75 mg PO BID #60 tab 12/23/17 metoprolol tartrate 25 mg tablet 12.5 mg PO BID #30 tab 12/23/17 Cyanocobalamin (Vitamin B-12) 1,000 mcg IM QMONTH 01/06/18 [Cyanocobalamin Injection] Surgical History: Surgical History (Last Reviewed 01/10/18 @ 11:20 by Teto Garcia MD) History of right-sided carotid endarterectomy (Chronic) Onset Date: ~07/2014 Z98.890 left subclavian artery stent (Chronic) Onset Date: ~03/2017 History of coronary artery stent placement (Chronic) Onset Date: ~03/22/13 Z95.5 [id number]-[id number] RCA PEN-WUG-Ygujya RCA 2000 and 2002 History of cholecystectomy (Resolved) Z98.890, Z90.49 History of section (Resolved) Z98.891 H/O bariatric surgery (Resolved) Z98.84 History of right knee joint replacement Z96.651 Surgical History: angioplasty, - - 3 heart stents, bariatric surgery and c- section, carotid endarterectemy Psychiatric History: No pertinent psych hx [employer]ER History: No pertinent [employer] B[employer]ER history Lives: Spouse/ Significant Other Smoking Status: Current every day smoker Tobacco Use: Cigarettes Alcohol: None Drugs: None - *Family History Maternal Family History: Family History (Last Reviewed 01/10/18 @ 12:01 by Teto Garcia MD) Mother CVA (cerebral vascular accident) Father Asthma Hypertension High blood cholesterol level Arthritis History Items: Stroke Review of Systems Constitutional: Denies: Anorexia Eyes: Denies: Blurred vision, Double vision HEENT: Denies: Difficulty Swallowing, Head Aches Neurological: Reports: Numbness, Tingling. Denies: Balance problems, Blurred vision, Double vision, Change in Speech, Slurred speech, Confusion, Difficulty swallowing, Focal weakness - Physical Exam General: Alert, Oriented x3, Cooperative Neurological: Cranial nerves II-XII grossly intact, Deep Tendon Reflexes 2+/4 and Symmetrical, Neuro grossly intact, Motor Exam 5/5 strength throughout, Sensory exam intact to light touch and pain, Coordination normal Psych/Mental Status: Normal Affect Vital Signs Temp Pulse Resp BP Pulse Ox 37.0 C 76 21 H 109/46 L 94 01/10/18 09:32 01/10/18 11:09 01/10/18 09:32 01/10/18 09:32 01/10/18 09:32 Oxygen Flow Rate (L/min) 2 Oxygen Delivery Method Nasal Cannula Weight: 120.1 kg Body Mass Index (BMI) 47.7 Finger Stick Blood Glucose 88 Intake and Output for Last 24 Hours 01/08/18 01/09/18 01/10/18 23:59 23:59 23:59 Intake Total 797 / 797 843 / 843 Output Total 300 / 300 Balance 497 / 497 843 / 843 Current Home Med List Medication Instructions Recorded Confirmed Type Budesonide/Formoterol 80-4.5 2 puff INHALATION BID 02/28/13 01/09/18 History [Symbicort 80-4.5 Mcg Inhaler] Citalopram [Celexa] 20 mg PO DAILY 02/28/13 01/09/18 History Fluticasone 0.05% [Flonase Nasal 2 spray NASAL DAILY PRN 02/28/13 01/09/18 History Disney] Montelukast [Singulair] 10 mg PO QHS 07/08/14 01/09/18 History Albuterol IH (ProAir) [Proair Hfa] 2 puff INHALATION Q6H PRN PRN 07/15/14 01/09/18 History Pramipexole Di-HCl [Mirapex] 2 mg PO TID PRN 09/19/16 01/09/18 History Atorvastatin Calcium [Lipitor] 40 mg PO QHS #30 tab 10/03/16 01/09/18 Rx Lorazepam [Ativan] 0.5 mg PO QHS PRN PRN 11/01/16 01/09/18 History Ferrous Gluconate 325 mg PO BIDCM 11/18/17 01/09/18 History Tolterodine Tartrate [Detrol LA] 4 mg PO DAILY 11/18/17 01/09/18 History omeprazole magnesium 20 mg 20 mg PO DAILY 12/08/17 01/09/18 History tablet,delayed release furosemide 20 mg tablet 20 mg PO DAILY #30 tab 12/12/17 01/09/18 Rx nitroglycerin 0.4 mg sublingual 0.4 mg SUBLINGUAL Q5M PRN #25 tab 12/12/17 01/09/18 Rx tablet Cholecalciferol (Vitamin D3) 1,000 unit PO DAILY 12/22/17 01/09/18 History [Vitamin D3] Hydrocodone/Acetaminophen 1 tab PO BID PRN PRN 12/22/17 01/09/18 History [Hydrocodone-Acetamin 5-325 mg] clopidogrel 75 mg tablet 75 mg PO BID #60 tab 12/23/17 01/09/18 Rx metoprolol tartrate 25 mg tablet 12.5 mg PO BID #30 tab 12/23/17 01/09/18 Rx Cyanocobalamin (Vitamin B-12) 1,000 mcg IM QMONTH 01/06/18 01/09/18 History [Cyanocobalamin Injection] Current Medications Generic Name Dose Route Start Last Admin Trade Name Freq PRN Reason Stop Dose Admin Acetaminophen 650 mg 01/09/18 12:15 Tylenol PO Q6H PRN PRN Headache/Temp>99F Hydrocodone Bitart/Acetaminophen 1 tablet 01/09/18 12:15 Rodanthe 5mg-325mg PO BID PRN PRN PAIN Albuterol Sulfate 2.5 mg 01/09/18 12:15 01/10/18 03:51 Ventolin Aerosols INHALATION 2.5 mg Q4H PRN PRN Administration Shortness of breath, wheezing Albuterol Sulfate 2.5 mg 01/09/18 13:00 01/10/18 07:28 Ventolin Aerosols INHALATION 2.5 mg Q6HWA.RT RADHA Administration Atorvastatin Calcium 40 mg 01/09/18 22:00 01/09/18 22:24 Lipitor PO 40 mg QHS RADHA Administration Budesonide 0.5 mg 01/09/18 13:00 01/10/18 07:28 Pulmicort Aerosol INHALATION 0.5 mg Q12H.RT RADHA Administration Citalopram Hydrobromide 20 mg 01/10/18 10:00 01/10/18 11:08 Celexa PO 20 mg DAILY RADHA Administration Clopidogrel Bisulfate 75 mg 01/09/18 22:00 01/10/18 11:11 Plavix PO 75 mg BID RADHA Administration Enoxaparin Sodium 40 mg 01/10/18 10:00 01/10/18 11:10 Lovenox SC 40 mg DAILY@1000 RADHA Administration Ferrous Gluconate 324 mg 01/09/18 17:00 01/10/18 08:56 Ferrous Gluconate PO 324 mg BIDCM RADHA Administration Fluticasone Propionate 2 spray 01/09/18 12:15 Flonase Nasal [place] NASAL DAILY PRN Nasal Congestion Lorazepam 0.5 mg 01/09/18 12:15 Ativan PO QHS PRN PRN ANXIETY Magnesium Hydroxide 30 ml 01/09/18 12:15 Milk Of Magnesia PO DAILY PRN Constipation Metoprolol Tartrate 12.5 mg 01/09/18 22:00 01/10/18 11:09 Lopressor (Beta Sonny) PO 12.5 mg BID RADHA Administration Montelukast Sodium 10 mg 01/09/18 22:00 01/09/18 22:24 Singulair PO 10 mg QHS RADHA Administration Nicotine 14 mg 01/10/18 10:00 01/10/18 11:10 Nicoderm Cq (Pbkc) TRANSDERM. 14 mg DAILY RADHA Administration Ondansetron HCl 4 mg 01/09/18 12:15 Zofran IV Q8H PRN PRN NAUSEA/VOMITING Pantoprazole Sodium 20 mg 01/10/18 10:00 01/10/18 11:11 Protonix PO 20 mg DAILY RADHA Administration Pramipexole Dihydrochloride 1 mg 01/09/18 12:15 Mirapex PO TID PRN RESTLESS LEG Pramipexole Dihydrochloride 2 mg 01/09/18 22:00 01/09/18 22:24 Mirapex PO 2 mg QHS RADHA Administration Sodium Chloride 5 - 30 ml 01/09/18 15:05 01/10/18 08:56 IV 20 ml UD PRN Administration SALINE FLUSH Tolterodine Tartrate 4 mg 01/10/18 10:00 01/10/18 11:09 Detrol La PO 4 mg DAILY RADHA Administration MRI of the brain reviewed, no acute. MRA of the head and neck reviewed, there is some left internal carotid artery stenosis at its origin, however this is asymptomatic at this point and does not appear to be significant. Assessment/Plan All Active Problems (Last Updated 01/10/18 @ 11:56 by Teresita Hanley MD) Abdominal pain (Resolved) TIA versus presyncope. She has ongoing low blood pressure. Already on Plavix two daily, as well as statin therapy. Okay to discharge home from a neurologic standpoint. Recommend outpatient carotid ultrasound to assess the left internal carotid artery Continue Plavix and statin therapy
--- NOTE | 2018-01-10 12:09 | CDU_ITS ---
Reason For Study: TIA Rt. Velocities/BP Lt. Velocities/BP Prox CCA 68.6/12.3 cm/sec. Prox CCA 128/13.7 cm/sec. Mid CCA 63.3/13.5 cm/sec. Mid CCA 122/15.7 cm/sec. Dist CCA 52.8/14.1 cm/sec. Dist CCA 127/16.7 cm/sec. Prox ICA 30.5/12.3 cm/sec. Prox ICA 272/33.0 cm/sec. Mid ICA 68.6/25.8 cm/sec. Mid ICA 207/23.6 cm/sec. Dist ICA 51.2/16.6 cm/sec. Dist ICA 153/24.9 cm/sec. Rt. ICA/CCA = 1.1. Lt. ICA/CCA = 2.2. Prox ECA 92.0/11.7 cm/sec. Prox ECA 458/29.2 cm/sec. Rt. Vert. 21.2/8.64 cm/sec. Lt. Vert. 79.9/18.3 cm/sec. Right Extracranial There is heterogeneous, irregular atherosclerotic plaque noted in the right common carotid artery. There is intimal thickening but no significant atherosclerotic plaque noted in the right internal carotid artery. There is intimal thickening but no significant atherosclerotic plaque noted in the right external carotid artery. Antegrade flow is noted in the right vertebral artery. Abnormal waveform morphology noted inthe right vertebral artery. Left Extracranial There is heterogeneous, irregular atherosclerotic plaque noted in the left common carotid artery. There is heterogeneous, irregular atherosclerotic plaque noted in the left internal carotid artery. There is heterogeneous, irregular atherosclerotic plaque noted in the left external carotid artery. Antegrade flow is noted in the left vertebral artery. Procedure Carotid Duplex 43611. The exam was diagnostic. Exam performed portable in ICU/CCU. Interpretation Summary Widely patent right carotid bulb and proximal right internal carotid with <50% stenosis. Normal flow right external carotid Irregular calcific plague at the proximal left internal carotid with >70% stenosis Severe stenosis left external carotid Patent and antegrade vertebrals bilaterally. Notable progression of left internal carotid disease since the previous exam of 01/14/17. Ordering Physician: Teresita Hanley Performed By: Michael Kaur RVT
--- NOTE | 2018-01-10 12:13 | DCINST_ITS ---
You will use the following diet at home:: Cardiac Your food should be the consistency of: Regular Discharge Activity: Return to Normal Activity Weight Bearing Status: Weight bearing as tolerated Call your doctor if you observe: Fever of 101 or Higher, Shortness of breath, Dizziness, Fainting spells, Chest pain, Increased palpitations (irregular heartbeat), Uncontrolled pain Allergies/Adverse Reactions: Allergies aspirin [ASA] Allergy (Severe, Verified 12/12/17 11:51) Hives bupropion [From Wellbutrin] Allergy (Verified 12/12/17 11:51) Unknown codeine Allergy (Verified 12/12/17 11:51) Unknown meperidine HCl [From Demerol] Allergy (Verified 12/12/17 11:51) Hives naproxen sodium [From Anaprox] Allergy (Verified 12/12/17 11:51) Unknown Penicillins [PCN] Allergy (Verified 12/12/17 11:51) Unknown propoxyphene HCl [From Darvon] Allergy (Verified 12/12/17 11:51) Hives Sulfa (Sulfonamide Antibiotics) Allergy (Verified 12/12/17 11:51) Unknown NSAIDS (Non-Steroidal Anti-Inflamma Adverse Reaction (Verified 12/12/17 11:51) Other Medications to take at Discharge Budesonide/Formoterol 80-4.5 [Symbicort 80-4.5 Mcg Inhaler] 2 puff INHALATION BID 02/28/13 Citalopram [Celexa] 20 mg PO DAILY 02/28/13 Fluticasone 0.05% [Flonase Nasal [place]] 2 spray NASAL DAILY PRN 02/28/13 Montelukast [Singulair] 10 mg PO QHS 07/08/14 Albuterol IH (ProAir) [Proair Hfa] 2 puff INHALATION Q6H PRN PRN 07/15/14 Pramipexole Di-HCl [Mirapex] 2 mg PO TID PRN 09/19/16 Atorvastatin Calcium [Lipitor] 40 mg PO QHS #30 tab 10/03/16 Lorazepam [Ativan] 0.5 mg PO QHS PRN PRN 11/01/16 Ferrous Gluconate 325 mg PO BIDCM 11/18/17 Tolterodine Tartrate [Detrol LA] 4 mg PO DAILY 11/18/17 omeprazole magnesium 20 mg tablet,delayed release 20 mg PO DAILY 12/08/17 furosemide 20 mg tablet 20 mg PO DAILY #30 tab 12/12/17 nitroglycerin 0.4 mg sublingual tablet 0.4 mg SUBLINGUAL Q5M PRN #25 tab 12/12/17 Cholecalciferol (Vitamin D3) [Vitamin D3] 1,000 unit PO DAILY 12/22/17 Hydrocodone/Acetaminophen [Hydrocodone-Acetamin 5-325 mg] 1 tab PO BID PRN PRN 12/22/17 clopidogrel 75 mg tablet 75 mg PO BID #60 tab 12/23/17 metoprolol tartrate 25 mg tablet 12.5 mg PO BID #30 tab 12/23/17 Cyanocobalamin (Vitamin B-12) [Cyanocobalamin Injection] 1,000 mcg IM QMONTH 01/06/18 Primary Care Physician: Vicente Raya III, MD [Primary Care Provider] - Please follow up with your Primary Care Physician in: 1 week. Test Results: Test results from this visit will be discussed in further detail at your follow- up appointment, if applicable. Please Follow Up With: Stephon Roblero MD When: please call his office.
--- NOTE | 2018-01-10 13:25 | PCM.DC.SUM ---
Discharge Date and Diagnosis Date of Admission: 01/09/18 Date of Discharge: 01/10/18 - Primary Discharge Diagnosis #1 transient ischemic attack. #2 severe left external carotid artery stenosis. - Secondary Discharge Diagnosis Chronic Problems (Last Updated 01/10/18 @ 11:56 by Teresita Hanley MD) VBI (vertebrobasilar insufficiency) (Chronic) Stage 2 moderate COPD by GOLD classification (Chronic) Chronic hypoxemic respiratory failure (Chronic) Obesities, morbid (Chronic) Hospital Course and Treatment Imaging Results: Clinical Impression(s) from Imaging Studies Brain CT 01/09/18 09:07 IMPRESSION: Chronic involutional changes of the brain. Electronically Signed: Emanuel Ventura MD at 9:50 EDT Tel [phone], Service support , Chest X-Ray 01/09/18 09:07 IMPRESSION: Increased markings in the right middle lobe with areas of confluence. A right middle lobe infiltrate should be ruled out. Radiographic follow-up is recommended. Electronically Signed: Emanuel Ventura MD at 10:13 EDT Tel [phone], Service support , Brain MRI 01/09/18 12:15 IMPRESSION: Mild periventricular white matter ischemic changes without evidence for acute infarct. Electronically Signed: Gabino Marques MD at 16:42 EDT , Service support , Head MRA 01/09/18 12:15 IMPRESSION: Narrowing of the distal A1 segment of the right anterior cerebral which may be exaggerated by artifact. CTA would be helpful for further assessment if clinically warranted Narrowing of the distal right vertebral Electronically Signed: Gabino Marques MD at 16:46 EDT , Service support , Neck MRA 01/09/18 12:15 IMPRESSION: Eccentric 50% stenosis of the proximal left internal carotid artery. NASCET criteria was used. Electronically Signed: Kahlil Bucio MD at 1:04 EDT Tel , Service support , Dr. Garcia, neurology. Operations: None Procedures: EKG Summary of Care Provided: The patient is a 77 year old F admitted because of transient left-sided body weakness as a case of transient ischemic attack for evaluation. A CT scan brain done on admission and revealed no evidence of acute infarction or hemorrhage. MRI brain also performed and showed no evidence of acute infarct. MRA of the head showed narrowing of the distal A1 segment of the right anterior cerebral artery which may be exaggerated by artifact. MRA of the neck revealed eccentric 50% stenosis of the proximal left internal carotid artery. Patient had 2D echocardiogram done on December 16, 2017 that revealed ejection fraction of 65%, stage I diastolic dysfunction and otherwise unremarkable. There was no indication to repeat the 2D echocardiogram at this admission. Acute stroke ruled out. Neurology consulted and recommended bilateral carotid Doppler as outpatient. Bilateral carotid Doppler performed during this admission and revealed severe stenosis of the left external carotid artery, irregular calcific plaque at the proximal left internal carotid artery with more than 70% stenosis, widely patent right carotid bulb and proximal right internal carotid artery with less than 50% stenosis. Her routine blood work was unremarkable. Her vital signs were stable. Her physical examination was nonfocal and there was no evidence of deficits. Patient discharged home before the results of the bilateral carotid Doppler. On January 11, 2018 at around 1:30 PM, I spoke with Dr. Vicente Raya iii who is the primary care physician for this patient and I informed him about the carotid Doppler findings and need for referral to vascular surgery for evaluation and probable intervention. Patient discharged home in a stable medical condition, continued on Plavix twice daily, statins, continued on her other chronic home medications without any changes, recommended from PCP in 1 week. This patient supposed to go for repeat heart catheterization on the day of admission for elective angioplasty and stenting of the mid and distal RCA and she had history of unstable angina on December 22, 2017 status post PTCA/MUSHTAQ to RCA. - Physical Exam General: Alert, Oriented x3, Cooperative, No apparent distress HEENT: Atraumatic, PERRLA, EOMI Oral: Moist Mucosa, No Gingival or Mucosal Lesions/ Ulcerations Neck: Supple, No JVD, Negative Carotid Bruits Lungs: Clear to auscultation, Normal air movement, No rhonchi, No wheeze, No rales Cardiovascular: Regular rate, Regular Rhythm, Normal S1, Normal S2 Abdomen: Bowel Sounds Present, Soft, Non Tender, Non-Distended, No Hepato-splenomegaly, Obese Extremities: No clubbing, No cyanosis, No edema Skin: No rashes, No breakdown Neurological: Cranial nerves II-XII grossly intact, Motor Exam 5/5 strength throughout Psych/Mental Status: Normal Affect, Appropriate Vital Signs Temp Pulse Resp BP Pulse Ox 98.3 F 72 14 100/56 L 98 01/10/18 11:27 01/10/18 11:27 01/10/18 11:27 01/10/18 11:27 01/10/18 11:27 Oxygen Flow Rate (L/min) 2 Oxygen Delivery Method Nasal Cannula Weight: 264 lb 12.403 oz Body Mass Index (BMI) 47.7 Finger Stick Blood Glucose 88 Intake and Output for Last 24 Hours 01/08/18 01/09/18 01/10/18 23:59 23:59 23:59 Intake Total 797 / 797 1083 / 1083 Output Total 300 / 300 Balance 497 / 497 1083 / 1083 Discharge Activity: Return to Normal Activity Weight Bearing Status: Weight bearing as tolerated Call your doctor if you observe: Fever of 101 or Higher, Shortness of breath, Dizziness, Fainting spells, Chest pain, Increased palpitations (irregular heartbeat), Uncontrolled pain Home Medications: Medications to take at Discharge Budesonide/Formoterol 80-4.5 [Symbicort 80-4.5 Mcg Inhaler] 2 puff INHALATION BID 02/28/13 Citalopram [Celexa] 20 mg PO DAILY 02/28/13 Fluticasone 0.05% [Flonase Nasal [place]] 2 spray NASAL DAILY PRN 02/28/13 Montelukast [Singulair] 10 mg PO QHS 07/08/14 Albuterol IH (ProAir) [Proair Hfa] 2 puff INHALATION Q6H PRN PRN 07/15/14 Pramipexole Di-HCl [Mirapex] 2 mg PO TID PRN 09/19/16 Atorvastatin Calcium [Lipitor] 40 mg PO QHS #30 tab 10/03/16 Lorazepam [Ativan] 0.5 mg PO QHS PRN PRN 11/01/16 Ferrous Gluconate 325 mg PO BIDCM 11/18/17 Tolterodine Tartrate [Detrol LA] 4 mg PO DAILY 11/18/17 omeprazole magnesium 20 mg tablet,delayed release 20 mg PO DAILY 12/08/17 furosemide 20 mg tablet 20 mg PO DAILY #30 tab 12/12/17 nitroglycerin 0.4 mg sublingual tablet 0.4 mg SUBLINGUAL Q5M PRN #25 tab 12/12/17 Cholecalciferol (Vitamin D3) [Vitamin D3] 1,000 unit PO DAILY 12/22/17 Hydrocodone/Acetaminophen [Hydrocodone-Acetamin 5-325 mg] 1 tab PO BID PRN PRN 12/22/17 clopidogrel 75 mg tablet 75 mg PO BID #60 tab 12/23/17 metoprolol tartrate 25 mg tablet 12.5 mg PO BID #30 tab 12/23/17 Cyanocobalamin (Vitamin B-12) [Cyanocobalamin Injection] 1,000 mcg IM QMONTH 01/06/18 Primary Care Physician: Vicente Raya III, MD [Primary Care Provider] - Please follow up with your Primary Care Physician in: 1 week. Please Follow Up With: Stephon Roblero MD When: please call his office. Medical Necessity - Tobacco Use Smoking Status: Current every day smoker Tobacco Use: Cigarettes Meaningful Use Info Meaningful Use Diagnoses (Choose all that apply): None applicable Code Visit OBSV E&M: 82411 Observation care discharge
== END 2018-01-10 14:05 | disposition home or self-care (01) ==
LOC: ED 09:56 → ICU 11:08
PROVIDERS: Admitting Provider Hospitalist; Emergency Provider Emergency Medicine; Family Provider Family Medicine; PCP Family Medicine; Visit Provider Hospitalist
DX: G45.9 Transient cerebral ischemic attack, unspecified (principal); Z79.899 Other long term (current) drug therapy; Z79.02 Long term (current) use of antithrombotics/antiplatelets; J44.9 Chronic obstructive pulmonary disease, unspecified; J96.11 Chronic respiratory failure with hypoxia; I65.22 Occlusion and stenosis of left carotid artery; E66.01 Morbid (severe) obesity due to excess calories; Z68.42 Body mass index [BMI] 45.0-49.9, adult; Z71.3 Dietary counseling and surveillance; Z95.5 Presence of coronary angioplasty implant and graft; F17.210 Nicotine dependence, cigarettes, uncomplicated; D64.9 Anemia, unspecified; I10 Essential (primary) hypertension; Z87.01 Personal history of pneumonia (recurrent); R29.700 NIHSS score 0; K21.9 Gastro-esophageal reflux disease without esophagitis; E78.5 Hyperlipidemia, unspecified; I25.10 Atherosclerotic heart disease of native coronary artery without angina pectoris; E11.9 Type 2 diabetes mellitus without complications; G47.33 Obstructive sleep apnea (adult) (pediatric)
CPT/HCPCS: 70450; 70544; 70549; 70551; 71045; 80048; 82962; 84484; 85025; 85610; 85730; 93005; 93880; 94640; 96372; 97162; 97165; 99218; 99284; A9585; J7030; A4216; G0378

== ENCOUNTER 2018-01-20 11:49 | Observation (INO) | payer MEDICARE, SELFPAY ==
[2017-12-22 12:49] VITALS: BMI 49.4
[2018-01-06 09:25] VITALS: BMI 49.4
[2018-01-20] VITALS (20 sets, daily range): BP systolic 90–160; BP diastolic 36–85; PULSE 63–87; RESP 14–24; TEMP 36.8–36.9; O2SAT 89–100; BMI 48.8
[2018-01-20 11:51] LABS: ACT Activated Clotting Time 153 sec (74-137)
--- NOTE | 2018-01-20 12:10 | CL.I_ITS ---
Patient Name: KAREN VILLANUEVA Study Date: 01/20/2018 Performing: Ht: 61.81 inches 157 cm : 1940 Wt: 268.96 lbs 122 kg Age: 77 Gender: female BSA: 2.16 PROCEDURE(S) PERFORMED CLINICAL PROFILE AND CO-MORBIDITIES Indications: Worsening Angina, Stable Known CAD Heart Failure: None Stress/Imaging Stress/Image Study Performed: No Angina Classification Anginal Classification w/in 2 Weeks: CCS III CAD Presentations: Unstable angina. Comorbidities/Risk Factors: Hypertension Dyslipidemia Prior PCI Chronic Lung Disease CONCLUSIONS Successful PTCA/MUSHTAQ distal LAD with a 2.25 x 24 Promus Synergy, post dilated throughout with a 2.5 x 8 NC balloon; 75%-->0%, no dissection. Successful PTCA/MUSHTAQ of 2 tandem lesions in proximal LAD utilizing a 3.5 x 24 Promus Synergy, post dil ated throughout with a 3.75 x 12 balloon; 85%-->0%, possible proximal LAD dissection corrected with s zackary stent. Pt had identical CP/jaw pain symptoms during proximal LAD stent deployment. RECOMMENDATIONS Highly recommend quitting all tobacco products Follow up with primary mill attendant Risk factor modification ASA Indefinitley Plavix for at least 12 months Routine post interventional care Refer for Outpatient Cardiac Rehab Manual sheath removal per protocol Successful Mynx closure for severe HTN, coughing and obesity. Follow up with Dr. Roblero Risk factor modification [facility] for HTN. NTG gtt post procedure. DESCRIPTION OF PROCEDURE The patient arrived to the procedure lab. The risks and benefits of the procedure as well as a full d escription of our services here and current unavailability of surgical backup were fully explained to the patient and/or their significant other prior to the catheterization. The Timeout was completed, verifying the correct patient and procedure. The patient's procedural site was prepped and draped in the usual fashion. Local anesthetic was given subcutaneously to right groin region with Lidocaine 2% Using a modified Seldinger technique,arterial access was obtained via the right femoral artery, a 6Fr 55cm sheath was inserted. . EBU 3.75 Guide catheter was inserted and engaged into the LCA. [employer] Guide wire was advan braulio to the LAD. 2.0 x 12 Emerge Balloon catheter was inserted. Balloon catheter was advanced across l esion in the LAD, distal. Angiogram performed pre balloon dilatation. PTCA balloon inflated at 6 atms for 9 secs. PTCA balloon inflated at 9 atms for 15 secs. Angiogram performed post balloon dilatation . PTCA balloon inflated at 11 atms for 20 secs. Balloon catheter was repositioned to additional lesio n in the LAD, proximal. PTCA balloon inflated at 8 atms for 9 secs. 2.25 x [address] ent was inserted. Drug Eluting stent was advanced across the lesion in the LAD, distal. Angiogram per formed pre stent deployment. Angiogram performed pre stent deployment. 2.50 x 8 NC Emerge Balloon cat heter was inserted. Balloon catheter was advanced across lesion in the LAD, distal. Angiogram perform ed pre balloon dilatation. Angiogram performed post balloon dilatation. 3.5 x 24 Synergy Drug Eluting stent was inserted. Drug Eluting stent was advanced across the lesion in the LAD, proxim al. Angiogram performed pre stent deployment. Angiogram performed post stent deployment. 3.75 x 12 NC Emerge Balloon catheter was inserted. Balloon catheter was advanced across lesion in the LAD, proxim al. Angiogram performed pre balloon dilatation. Angiogram performed post stent deployment. 3.75 x 12 NC Emerge Balloon catheter was reinserted Balloon catheter was advanced across lesion in the LAD, pro ximal. Angiogram performed post balloon dilatation. Contrast was injected through the sheath and the Right Iliac and Femoral artery were assessed for possible closure device. The arterial sheath was pu lled and a Mynx closure device was deployed for hemostasis INTERVENTION INFORMATION LESION SITE: LAD (Distal) Lesion Complexity: High/C, lesion at bifurcation: No, thrombus present: No, lesion length: 24 mm, cul prit lesion: No Pre Stenosis: 75 % Pre intervention DINA flow: 3 PROCEDURE: Drug Eluting Stent with pre and post dilatation Post Stenosis: 0 % Post intervention DINA flow: 3 Lesion Devices: Medtronic 6 Fr EBU3.75 100cm Guide Catheter Leyva .014 [employer] Straight 190cm Leonid Sci EMERGE MR 2.00x12 BALLOON Leonid Sci Synergy MR MUSHTAQ 2.25x24 Leonid Sci NC EMERGE MR 2.50x08 BALLOON LESION SITE: LAD (Proximal) Lesion Complexity: High/C Pre Stenosis: 85 % Pre intervention DINA flow: 3 PROCEDURE: Drug Eluting Stent with pre and post dilatation Post Stenosis: 0 % Post intervention DINA flow: 3 Lesion Devices: Medtronic 6 Fr EBU3.75 100cm Guide Catheter Leyva .014 [employer] Straight 190cm Leonid Sci EMERGE MR 2.00x12 BALLOON Leonid Sci Synergy MR MUSHTAQ 3.50x24 Leonid Sci NC EMERGE MR 3.75x12 BALLOON COMPLICATIONS No Complications PROCEDURE MEDICATIONS Versed 1 mg IV Oxygen: 2 L/min via nasal cannula Heparin 6000 unit(s) IV 01/20/2018 11:06:23 Nitro 200 mcg IC 01/20/2018 11:07:57 Nitro 200 mcg IC 01/20/2018 11:07:57 Nitro glycerin 25mg / 250ml D5W @ 10 mcg/min IV started 01/20/2018 11:27:56 Nitro 200 mcg IC 01/20/2018 11:28:35 Nitro 200 mcg IC 01/20/2018 11:29:16 Nitro 200 mcg IC 01/20/2018 11:34:08 IV Bolus: .9 NaCl 250ml total 01/20/2018 11:09:25 SUMMARY OF HEMODYNAMIC DATA Time AIR REST ECG 10:32:04 AO 160/54 (91) SA 11:07:22
--- NOTE | 2018-01-20 13:38 | EKG12_ITS ---
Test Reason : POST PCI Blood Pressure : / mmHG Vent. Rate : 068 BPM Atrial Rate : 068 BPM P-R Int : 200 ms QRS Dur : 086 ms QT Int : 404 ms P-R-T Axes : 062 063 024 degrees QTc Int : 429 ms Normal sinus rhythm Normal ECG Confirmed by SANDI LEI, WILBERTO ([id number]), editorial project manager DANIA FULLER ([id number]) on 01/25/2018 11:39:34 AM Referred By: Stephon Roblero Confirmed By:WILBERTO JUNIOR MD
[2018-01-20] MEDS: 0.9% Normal Saline 1,000 ML 150 ML IV (14:26)
--- NOTE | 2018-01-20 14:29 | CRPHASE1 ---
Patient Data/Charges Phase II Referral:: [facility] Start Phase II:: FOLLOWING OFFICE VISIT WITH MOVIE EXTRA Risk Factors/Lifestyle Smoking Status: Current every day smoker Hx Hypertension: Yes Hx Diabetes Mellitus Type 1: No Hx Diabetes Mellitus Type 2: Yes Hx Metabolic Disorders: Yes Hx Dyslipidemia: Yes Hx Obesity: Yes Height: 5 ft 2 in - BMI 49.4 Post-Menopausal: Yes Stress: Home/Family Risk Factor for Sedentary Lifestyle: Highest Risk Family History: Family History (Last Reviewed 01/10/18 @ 12:01 by Teto Garcia MD) Mother CVA (cerebral vascular accident) Father Asthma Hypertension High blood cholesterol level Arthritis Family History: Asthma, COPD, Diabetes, Heart Disease, Hypertension Past Cardiac Illness: Coronary Artery Disease, Previous PCI w/Stent Phase I Education Given On:: [place], Nutrition, Antiplatelet medication, Smoking cessation, Diabetes - Type II Issues Affecting Care:: None Knowledge of Condition:: Yes Learning Preferences: Verbal, Written Medical/Surgical History Angina:: Yes CAD:: Yes COPD:: Yes Asthma:: Yes JESSICA:: Yes Diabetes:: Yes Diabetes Type II:: Yes Hypertension:: Yes Dyslipidemia:: Yes GERD:: Yes PTCA:: Yes - 2013 Discharge/Home/Social Eval Discharge Disposition: Home
--- NOTE | 2018-01-20 14:32 | CRPHASE1_ITS ---
Patient Data/Charges Phase II Referral:: [facility] Start Phase II:: FOLLOWING OFFICE VISIT WITH PAPER CUTTING MACHINE OPERATOR Risk Factors/Lifestyle Smoking Status: Current every day smoker Hx Hypertension: Yes Hx Diabetes Mellitus Type 1: No Hx Diabetes Mellitus Type 2: Yes Hx Metabolic Disorders: Yes Hx Dyslipidemia: Yes Hx Obesity: Yes Height: 5 ft 2 in - BMI 49.4 Post-Menopausal: Yes Stress: Home/Family Risk Factor for Sedentary Lifestyle: Highest Risk Family History: Family History (Last Reviewed 01/10/18 @ 12:01 by Teto Garcia MD) Mother CVA (cerebral vascular accident) Father Asthma Hypertension High blood cholesterol level Arthritis Family History: Asthma, COPD, Diabetes, Heart Disease, Hypertension Past Cardiac Illness: Coronary Artery Disease, Previous PCI w/Stent Phase I Education Given On:: [place], Nutrition, Antiplatelet medication, Smoking cessation, Diabetes - Type II Issues Affecting Care:: None Knowledge of Condition:: Yes Learning Preferences: Verbal, Written Medical/Surgical History Angina:: Yes CAD:: Yes COPD:: Yes Asthma:: Yes JESSICA:: Yes Diabetes:: Yes Diabetes Type II:: Yes Hypertension:: Yes Dyslipidemia:: Yes GERD:: Yes PTCA:: Yes - 2013 Discharge/Home/Social Eval Discharge Disposition: Home
--- NOTE | 2018-01-20 14:34 | CRPH1.INST_ITS ---
General Education CAD and cardiac anatomy and function:: Patient communicates acknowledgment Explanation of diagnoses and procedures:: Patient communicates acknowledgment Sign/Symptoms of VA:: Patient communicates acknowledgment Antiplatelet therapy: Patient communicates acknowledgment Proper use of NTG-SL: Not instructed Emergency procedures and activation of EMS: Patient communicates acknowledgment Compliance of all prescribed medications: Patient communicates acknowledgment Smoking Patient Nicotine/Smoking Risk Factors Are:: Cigarettes Recommendations Include:: Smoking cessation strategies/Smoking packet, Participation in a smoking cessation program Nicotine/Smoking Response Code:: Patient communicates acknowledgment Dyslipidemia Recommendations Include:: Lipid profile provided, Reviewed NCEP/ATP guidelines, Therapeutic Lifestyle Change dietary guidelines Dyslipidemia Response Code:: Patient communicates acknowledgment Overweight/Obesity Patient Overweight/Obesity Risk Factors Are:: Obesity - > or = 30 Recommendations Include:: Weight loss of 5-10%, Reduced calorie diet, Exercise 5-7 times/week Overweight/Obesity:: Patient communicates acknowledgment - HX BARIATRIC SURGERY Hypertension Recommendations Include:: BP <130/80 if diabetic, DASH dietary guidelines, Decrease/maintain normal body weight, Moderation of ETOH Hypertension:: Patient communicates acknowledgment Heart Disease Patient Heart Disease Risk Factors Are:: Previous cardiac event Heart Disease Response Code:: Patient communicates acknowledgment Diabetes Patient Diabetes Risk Factors Are:: Elevated blood sugars Recommendations Include:: Maintain fasting blood sugars 70-110 md/dL, Maintain HgbA1c of 6% or less, Monitor blood sugar as prescribed, Diabetic dietary gu idelines, Decrease/maintain body weight Diabetes:: Patient communicates acknowledgment Metabolic Syndrome Patient Metabolic Syndrome Risk Factors Are [3 of 5]:: Waist circumference > 35 [female] or 40 [male], Hypertension, Low HDL <40 [male] or < 50 [female] Recommendations Include:: Reinforce compliance to risk factor modifications, Patient is diabetic, Encouraged follow-up with Primary Care Physician Metabolic Syndrome Response Code:: Patient communicates acknowledgment Sedentary Patient Sedentary Risk Factors Are:: Lack of regular exercise Recommendations Include:: Aerobic exercise 5-7 times/week for 20-30 minutes continuously, Benefits of regular exercise, Discussed home walking program, Monitored Outpatient Cardiac Rehab Sedentary Response Code:: Patient communicates acknowledgment Stress Recommendations Include:: Identification of stressors, and assessment of coping skills, Stress management techniques Stress Response Code:: Patient communicates acknowledgment
--- NOTE | 2018-01-20 16:35 | PCM.DC.CCA ---
Discharge Diet: Low fat/ Low Cholesterol Discharge Activity: Return to Normal Activity May shower in (days): 1 May resume sexual activity in: 1-2 weeks Lifting Restrictions: Do not lift anything greater than 10 pounds for 3 days Call your doctor if your incision/area has: Continuous Slow Oozing, Sudden Increased Bleeding, Increased Pain/ Swelling, Increased Redness, Foul Smelling Discharge, Swelling at the incision site Call your doctor if you observe: Fever of 101 or Higher, Coldness, Increased Pain, Chest pain Remove Dressing in (days):: 1 Cleanse incision/area with: Soap & Water Additional Instructions: You have been starting on a new medication called losartan. This has been sent to [facility]. This is to help blood pressure control. You are scheduled for an office follow-up with Dr. Roblero on 02/07/2018 at 1:30 PM Allergies/Adverse Reactions: Allergies aspirin [ASA] Allergy (Severe, Verified 01/19/18 07:05) Hives bupropion [From Wellbutrin] Allergy (Verified 01/19/18 07:05) Unknown codeine Allergy (Verified 01/19/18 07:05) Unknown meperidine HCl [From Demerol] Allergy (Verified 01/19/18 07:05) Hives naproxen sodium [From Anaprox] Allergy (Verified 01/19/18 07:05) Unknown Penicillins [PCN] Allergy (Verified 01/19/18 07:05) Unknown propoxyphene HCl [From Darvon] Allergy (Verified 01/19/18 07:05) Hives Sulfa (Sulfonamide Antibiotics) Allergy (Verified 01/19/18 07:05) Unknown NSAIDS (Non-Steroidal Anti-Inflamma Adverse Reaction (Verified 01/19/18 07:05) Other Medications to take at Discharge Budesonide/Formoterol 80-4.5 [Symbicort 80-4.5 Mcg Inhaler] 2 puff INHALATION BID 02/28/13 Citalopram [Celexa] 20 mg PO DAILY 02/28/13 Fluticasone 0.05% [Flonase Nasal [place]] 2 spray NASAL DAILY PRN 02/28/13 Montelukast [Singulair] 10 mg PO QHS 07/08/14 Albuterol IH (ProAir) [Proair Hfa] 2 puff INHALATION Q6H PRN PRN 07/15/14 Pramipexole Di-HCl [Mirapex] 2 mg PO TID PRN 09/19/16 Atorvastatin Calcium [Lipitor] 40 mg PO QHS #30 tab 10/03/16 Lorazepam [Ativan] 0.5 mg PO QHS PRN PRN 11/01/16 Ferrous Gluconate 325 mg PO BIDCM 11/18/17 Tolterodine Tartrate [Detrol LA] 4 mg PO DAILY 11/18/17 omeprazole magnesium 20 mg tablet,delayed release 20 mg PO DAILY 12/08/17 furosemide 20 mg tablet 20 mg PO DAILY #30 tab 12/12/17 nitroglycerin 0.4 mg sublingual tablet 0.4 mg SUBLINGUAL Q5M PRN #25 tab 12/12/17 Cholecalciferol (Vitamin D3) [Vitamin D3] 1,000 unit PO DAILY 12/22/17 Hydrocodone/Acetaminophen [Hydrocodone-Acetamin 5-325 mg] 1 tab PO BID PRN PRN 12/22/17 clopidogrel 75 mg tablet 75 mg PO BID #60 tab 12/23/17 metoprolol tartrate 25 mg tablet 12.5 mg PO BID #30 tab 12/23/17 Cyanocobalamin (Vitamin B-12) [Cyanocobalamin Injection] 1,000 mcg IM QMONTH 01/06/18 Losartan Potassium [Cozaar] 25 mg PO DAILY tablet 01/20/18 Primary Care Physician: Vicente Raya III, MD [Primary Care Provider] - Test Results: Test results from this visit will be discussed in further detail at your follow-up appointment, if applicable. Please Follow Up With: Dr. Roblero When: 02/07/2018 at 1:30 PM Proposed Discharge Date: 01/21/18 Cardiac Rehabilitation Info Cardiac Rehabilitation Program Information: Cardiac Rehabilitation is important for patients like you who are recovering from a heart problem. Cardiac rehabilitation programs are recognized as integral to the continued care of the patient with coronary heart disease. The cardiac rehabilitation program is designed to optimize a patient's physical, psychological, and social functioning. Health critical care transport nurse work in cardiac rehabilitation programs and assist you with getting the treatments you need to get stronger and healthier - like exercise, healthy eating habits, and medications. Cardiac rehabilitation has been show to help people with heart problems live longer and have better life enjoyment than people who do not go to cardiac rehabilitation. Please contact the Cardiac Rehabilitation Program at [facility] at in two weeks if you have not heard from them.
--- NOTE | 2018-01-20 16:38 | DCINST_ITS ---
Discharge Diet: Low fat/ Low Cholesterol Discharge Activity: Return to Normal Activity May shower in (days): 1 May resume sexual activity in: 1-2 weeks Lifting Restrictions: Do not lift anything greater than 10 pounds for 3 days Call your doctor if your incision/area has: Continuous Slow Oozing, Sudden Increased Bleeding, Increased Pain/ Swelling, Increased Redness, Foul Smelling Discharge, Swelling at the incision site Call your doctor if you observe: Fever of 101 or Higher, Coldness, Increased Pain, Chest pain Remove Dressing in (days):: 1 Cleanse incision/area with: Soap & Water Additional Instructions: You have been starting on a new medication called losartan. This has been sent to [facility]. This is to help blood pressure control. You are scheduled for an office follow-up with Dr. Roblero on 02/07/2018 at 1:30 PM Allergies/Adverse Reactions: Allergies aspirin [ASA] Allergy (Severe, Verified 01/19/18 07:05) Hives bupropion [From Wellbutrin] Allergy (Verified 01/19/18 07:05) Unknown codeine Allergy (Verified 01/19/18 07:05) Unknown meperidine HCl [From Demerol] Allergy (Verified 01/19/18 07:05) Hives naproxen sodium [From Anaprox] Allergy (Verified 01/19/18 07:05) Unknown Penicillins [PCN] Allergy (Verified 01/19/18 07:05) Unknown propoxyphene HCl [From Darvon] Allergy (Verified 01/19/18 07:05) Hives Sulfa (Sulfonamide Antibiotics) Allergy (Verified 01/19/18 07:05) Unknown NSAIDS (Non-Steroidal Anti-Inflamma Adverse Reaction (Verified 01/19/18 07:05) Other Medications to take at Discharge Budesonide/Formoterol 80-4.5 [Symbicort 80-4.5 Mcg Inhaler] 2 puff INHALATION BID 02/28/13 Citalopram [Celexa] 20 mg PO DAILY 02/28/13 Fluticasone 0.05% [Flonase Nasal [place]] 2 spray NASAL DAILY PRN 02/28/13 Montelukast [Singulair] 10 mg PO QHS 07/08/14 Albuterol IH (ProAir) [Proair Hfa] 2 puff INHALATION Q6H PRN PRN 07/15/14 Pramipexole Di-HCl [Mirapex] 2 mg PO TID PRN 09/19/16 Atorvastatin Calcium [Lipitor] 40 mg PO QHS #30 tab 10/03/16 Lorazepam [Ativan] 0.5 mg PO QHS PRN PRN 11/01/16 Ferrous Gluconate 325 mg PO BIDCM 11/18/17 Tolterodine Tartrate [Detrol LA] 4 mg PO DAILY 11/18/17 omeprazole magnesium 20 mg tablet,delayed release 20 mg PO DAILY 12/08/17 furosemide 20 mg tablet 20 mg PO DAILY #30 tab 12/12/17 nitroglycerin 0.4 mg sublingual tablet 0.4 mg SUBLINGUAL Q5M PRN #25 tab 12/12/17 Cholecalciferol (Vitamin D3) [Vitamin D3] 1,000 unit PO DAILY 12/22/17 Hydrocodone/Acetaminophen [Hydrocodone-Acetamin 5-325 mg] 1 tab PO BID PRN PRN 12/22/17 clopidogrel 75 mg tablet 75 mg PO BID #60 tab 12/23/17 metoprolol tartrate 25 mg tablet 12.5 mg PO BID #30 tab 12/23/17 Cyanocobalamin (Vitamin B-12) [Cyanocobalamin Injection] 1,000 mcg IM QMONTH 01/06/18 Losartan Potassium [Cozaar] 25 mg PO DAILY tablet 01/20/18 Primary Care Physician: Vicente Raya III, MD [Primary Care Provider] - Test Results: Test results from this visit will be discussed in further detail at your follow- up appointment, if applicable. Please Follow Up With: Dr. Roblero When: 02/07/2018 at 1:30 PM Proposed Discharge Date: 01/21/18 Cardiac Rehabilitation Info Cardiac Rehabilitation Program Information: Cardiac Rehabilitation is important for patients like you who are recovering from a heart problem. Cardiac rehabilitation programs are recognized as integral to the continued care of the patient with coronary heart disease. The cardiac rehabilitation program is designed to optimize a patient's physical, psychological, and social functioning. Health urgent care physician work in cardiac rehabilitation programs and assist you with getting the treatments you need to get stronger and healthier - like exercise, healthy eating habits, and medications. Cardiac rehabilitation has been show to help people with heart problems live longer and have better life enjoyment than people who do not go to cardiac rehabilitation. Please contact the Cardiac Rehabilitation Program at [facility] at in two weeks if you have not heard from them.
[2018-01-20] MEDS: Ferrous Gluconate 324 MG Tablet PO (19:20)
[2018-01-20] MEDS: Albuterol 2.5 MG/3 ML VIAL.NEB. INHALATION (19:35)
[2018-01-20] MEDS: Budesonide Respules 0.5 MG/2 ML AMPUL.NEB. INHALATION (19:35)
[2018-01-20] MEDS: Atorvastatin Calcium 40 MG Tablet PO (21:23)
[2018-01-20] MEDS: Metoprolol Tartrate 25 MG Tablet 12.5 MG PO (21:23)
[2018-01-20] MEDS: Clopidogrel Bisulfate 75 MG Tablet PO (21:25)
[2018-01-20] MEDS: Montelukast 10 MG Tablet PO (21:26)
[2018-01-20] MEDS: Pramipexole Di-HCl 1 MG Tablet 2 MG PO (21:28)
[2018-01-20] MEDS: LORazepam 0.5 MG Tablet PO (23:40)
[2018-01-21] VITALS (12 sets, daily range): BP systolic 91–192; BP diastolic 52–94; PULSE 61–81; RESP 13–24; TEMP 36.8–36.9; O2SAT 92–99
[2018-01-21 05:23] LABS: Hematocrit 33.7 % (37-47); Hemoglobin 10.4 g/dl (12.0-15.0); Mean Corp Hgb Conc 30.9 g/gl (32-36); Mean Corpuscular Hgb 26.6 pg (27.0-32.0); Mean Corpuscular Volume 86.2 fL (81-99); Mean Platelet Vol. 8.5 fl (6.2-12.0); Platelet Count 202 K/mm3 (150-450); RBC Distribution Width CV 20.9 % (11.6-14.6); RBC Distribution Width SD 64.4 fl (35.1-43.9); Red Blood Count 3.91 M/mm3 (4.2-5.4)
[2018-01-21 05:24] LABS: Scan Indicated on CBC? Y/N YES- FLAGS NOTED
[2018-01-21 05:33] LABS: Anion Gap 7 (5-15); BUN 14 mg/dL (7-18); Chloride 109 mmol/L (98-107); Creatinine, Serum 0.67 mg/dL (0.55-1.02); EST Glomerular Filtration Rate 92 mL/min (>60); Est Glom Filt Rate - Afr Amer 111 mL/min (>60); Estimated Creatinine Clearance 37.85 ml/min; Glucose 89 mg/dL (74-106); Sodium Level 144 mmol/L (136-145)
[2018-01-21] MEDS: Albuterol 2.5 MG/3 ML VIAL.NEB. INHALATION (06:05)
[2018-01-21] MEDS: Budesonide Respules 0.5 MG/2 ML AMPUL.NEB. INHALATION (06:05)
[2018-01-21 06:11] LABS: Differential Comment SCAN
[2018-01-21] MEDS: Ferrous Gluconate 324 MG Tablet PO (07:38)
--- NOTE | 2018-01-21 09:22 | PCM.PN.CARD ---
Subjectve: Patient doing very well, and reports feeling much better since her angioplasty yesterday. No chest pain overnight. Telemetry negative. EKG shows normal sinus rhythm without acute changes. Hemoglobin and creatinine within nominal limits. Right groin is clean/dry/intact without evidence of thrills, bruits or hematoma. Objective: Vital Signs Temp Pulse Resp BP Pulse Ox 98.2 F 76 16 137/74 H 94 01/21/18 04:00 01/21/18 08:00 01/21/18 06:05 01/21/18 06:00 01/21/18 06:00 Oxygen Flow Rate (L/min) 2 Oxygen Delivery Method Room Air Weight: 269 lb 6.478 oz Body Mass Index (BMI) 48.8 Finger Stick Blood Glucose 88 Intake and Output for Last 24 Hours 01/19/18 01/20/18 01/21/18 23:59 23:59 23:59 Intake Total 1731 / 1731 360 / 360 Output Total 250 / 250 Balance 1481 / 1481 360 / 360 General: Awake, Alert, Oriented x 3 HEENT: PERRL, EOMI, Sclera Non Icteric Neck: Supple, Good ROM, No Lymph Node Enlargement Lungs: Clear to auscultation Cardiovascular: Regular Rhythm, Normal S1, Normal S2, No Murmurs, No Rubs, No Gallops Vascular: No Carotid Bruits, Normal Femoral Pulses, Normal Radial Pulses, Normal Dorsalis Pedal Pulse, Normal Posterior Tibial Pulses Abdomen: Bowel Sounds Present, Soft, Non Tender, No HSM, No Organomegaly Extremities: No Cyanosis, No Clubbing, No edema Neurological: No Focal Motor or Sensory Deficit 01/21/18 05:10: WBC 10.0, RBC 3.91 L, Hgb 10.4 L, Hct 33.7 L, MCV 86.2, MCH 26.6 L, MCHC 30.9 L, RDW 20.9 H, RDW Differential 64.4 H, Plt Count 202, MPV 8.5 01/21/18 05:10: Sodium 144, Potassium 4.0, Chloride 109 H, Carbon Dioxide 28.0, Anion Gap 7, BUN 14, Creatinine 0.67, Est GFR (MDRD) Af Amer 111, Est GFR (MDRD) Non-Af 92, BUN/Creatinine Ratio 21.0 H, Glucose 89, Calcium 8.0 L Rhythm: EKG: ECHO: Stress Test: Cardiac Cath: PCI: CT Surgery: Holter monitor: EPS: PPM: CXR: Chest CT Scan: Medical Necessity - Tobacco Use Smoking Status: Current every day smoker Assessment/Plan 1. Coronary artery disease: Patient is status post angioplasty and drug-eluting stenting x2 to the distal and proximal LAD and feels much better today. Right groin is clean/dry/intact and her hemoglobin and creatinine are within nominal limits. Telemetry is negative. EKG is unremarkable. Patient requires no additional intervention or coronary correction at this time. Recommend that she be discharged home and follow-up with me going forward. She will continue her Plavix 75 mg p.o. twice daily as she has a true aspirin allergy. Patient was started on Cozaar 25 mg p.o. daily for significant hypertension during her procedure. She will continue all of her other medications. Patient may be discharged home. Code Visit Inpatient E&M: 32471 Subs Hosp L2
--- NOTE | 2018-01-21 10:00 | EKG12_ITS ---
Test Reason : AM Blood Pressure : / mmHG Vent. Rate : 073 BPM Atrial Rate : 073 BPM P-R Int : 196 ms QRS Dur : 080 ms QT Int : 394 ms P-R-T Axes : 067 061 090 degrees QTc Int : 434 ms Normal sinus rhythm Septal infarct , age undetermined Abnormal ECG When compared with ECG of 20-JAN-2018 13:27, MANUAL COMPARISON REQUIRED, DATA IS UNCONFIRMED Confirmed by SANDI LEI, WILBERTO ([id number]), book or script editor DANIA FULLER ([id number]) on 01/25/2018 11:38:47 AM Referred By: Stephon Roblero Confirmed By:WILBERTO JUNIOR MD
== END 2018-01-21 10:31 | disposition home or self-care (01) ==
LOC: CLSP 13:25 → ICU 13:36
PROVIDERS: Admitting Provider Internal Medicine Cardiovascular Disease; Family Provider Family Medicine; PCP Family Medicine; Referring Provider Internal Medicine Cardiovascular Disease; Visit Provider Internal Medicine Cardiovascular Disease
DX: I25.10 Atherosclerotic heart disease of native coronary artery without angina pectoris (principal); F17.200 Nicotine dependence, unspecified, uncomplicated; E78.5 Hyperlipidemia, unspecified; I10 Essential (primary) hypertension; J98.4 Other disorders of lung; Z79.899 Other long term (current) drug therapy; Z79.51 Long term (current) use of inhaled steroids; Z79.02 Long term (current) use of antithrombotics/antiplatelets
CPT/HCPCS: 80048; 85027; 85347; 92928; 93005; 94640; 94762; 96360; 96361; 99152; 99153; 99218; C1760; J7030; J7040; Q9967; C1725; C1769; C1874; C1887; C1894; C9600; G0378; G0379

== ENCOUNTER 2018-01-28 20:17 | Emergency (ER) | payer MEDICARE, SELFPAY ==
[2017-12-22 12:49] VITALS: BMI 49.4
[2018-01-28 20:17] VITALS: BMI 48.2
[2018-01-28 20:18] VITALS: BP 155/112; PULSE 78; RESP 19; TEMP 35.9; O2SAT 93; BMI 45.7
[2018-01-28 20:57] VITALS: BP 173/121; PULSE 85; RESP 18; O2SAT 95
[2018-01-28 21:15] LABS: Bacteria 0 SEEN /hpf (None Seen); Mucous, Urine 0 SEEN /hpf (<or=2+); Red Blood Cells-Urine 0 SEEN /hpf (0-5); Squamous Epithelial Cells - UA 0 SEEN /hpf (5-10); White Blood Cells 0 SEEN /hpf (0-5)
--- NOTE | 2018-01-28 21:18 | CT_ITS ---
STUDY: CT ABDOMEN AND PELVIS WITH CONTRAST REASON FOR EXAM: Female, 77 years old. Abdominal pain. Nausea vomiting. Elevated white count. RADIATION DOSAGE (If Supplied By Facility): CTDIvol = ( 27.05 ) mGy, DLP = ( 1235.12 ) mGycm TECHNIQUE: Transaxial images were obtained from the dome of the diaphragm to the symphysis pubis without oral contrast. 100ML ml of Isovue 300 contrast was administered. Sagittal and coronal images were reconstructed. Individualized dose optimization techniques were used for this CT. COMPARISON: 11/21/2017. FINDINGS: Airspace disease in the right middle lobe is consistent with pneumonia. Nodular density in the right lower lobe measures 4 mm. The visualized portions of the heart are within normal limits. Normal liver. There are surgical clips in the gallbladder fossa consistent with a prior cholecystectomy. Normal spleen. Normal pancreas. Normal bilateral adrenal glands. There is a 5.1 x 4.7 cm right renal cyst. The kidneys are otherwise unremarkable. The aorta is normal in caliber, with marked atherosclerotic calcification. There is no free fluid, free air, or organized collection. There has been prior gastric and right upper quadrant surgery. There is a small midline supraumbilical hernia containing a short segment of transverse colon. Proximal colon is mildly distended. Distal: Is normal to decompressed. The appendix is dilated, measuring up to 1 cm, but is predominantly gas-filled. There are no periappendiceal inflammatory changes. Normal urinary bladder. Degenerative spine changes are noted. CT/Abdomen/Pelvis W IV Cont ONLY IMPRESSION: 1. Right middle lobe pneumonia. 2. Supraumbilical hernia containing short segment of transverse colon with mild proximal bowel dilation. Findings are suspicious for early/partial bowel obstruction. 3. Right lower lobe nodular density. This may be secondary to inflammatory change in the right middle lobe, versus pulmonary nodule. 6-12 months follow-up is advised. 4. Right renal cyst. Electronically Signed: Jeannie Good MD at 22:34 EST Tel , Service support ,
[2018-01-28 21:19] LABS: Glucose, Dipstick Normal (Normal); Ketone-Dipstick Negative (Negative); Leukocyte Esterase-Dipstick Negative /ul (Negative); Nitrite-Dipstick Negative (Negative); Occult Blood-Urine 25 /ul (Negative); Protein-Dipstick 30 mg/dl (Negative); Specific Gravity, Urine 1.015 (1.002-1.030); Urine Bilirubin Dipstick Negative (Negative); Urine Urobilinogen Normal (Normal)
[2018-01-28 21:27] LABS: Absolute Lymphocyte Count 2.32 X10^3/ul (0.83-4.51); Absolute Neutrophil Count 8.9 X10^3/uL (2.0-7.7); Basophil# 0.05 X10^3/uL; Basophil% 0.4 % (0-1); Eosinophil# 0.27 X10^3/uL; Eosinophils% 2.2 % (0-5); Hematocrit 39.7 % (37-47); Hemoglobin 12.1 g/dl (12.0-15.0); Lymphocyte # 2.32 X10^3/ul (4.0); Lymphocyte % 18.8 % (19-41); Mean Corp Hgb Conc 30.5 g/gl (32-36); Mean Corpuscular Hgb 26.1 pg (27.0-32.0); Mean Corpuscular Volume 85.7 fL (81-99); Mean Platelet Vol. 8.5 fl (6.2-12.0); Monocyte% 5.7 % (0-10); Neutrophil # 8.93 X10^3/uL (2.7-7.7); Neutrophil % 72.3 % (47-70); POSITIVE COUNT NO; POSITIVE DIFFERENTIAL NO; POSITIVE MORPHOLOGY NO; Platelet Count 299 K/mm3 (150-450); RBC Distribution Width CV 19.7 % (11.6-14.6); RBC Distribution Width SD 61.8 fl (35.1-43.9); Red Blood Count 4.63 M/mm3 (4.2-5.4); White Blood Count 12.4 K/mm3 (4.4-11.0)
[2018-01-28 21:31] LABS: Color, Urine Yellow (Yellow); Urine Clarity Clear (Clear)
[2018-01-28] MEDS: 0.9% Normal Saline 1,000 ML 1000 ML IV (21:32)
[2018-01-28] MEDS: Ondansetron 4 MG/2 ML Vial IV (21:32)
[2018-01-28 21:41] LABS: Anion Gap 6 (5-15); BUN 28 mg/dL (7-18); BUN/Creat Ratio 27.7 RATIO (10-20); Calcium,Total 8.7 mg/dL (8.5-10.1); Chloride 108 mmol/L (98-107); Creatinine, Serum 1.01 mg/dL (0.55-1.02); EST Glomerular Filtration Rate 57 mL/min (>60); Est Glom Filt Rate - Afr Amer 69 mL/min (>60); Estimated Creatinine Clearance 37.48 ml/min; Glucose 115 mg/dL (74-106); Sodium Level 141 mmol/L (136-145)
--- NOTE | 2018-01-28 23:57 | ED.VISSUMM ---
- ER Visit Summary Date of Service: 01/28/18 Chief Complaint: Abdominal pain History of Present Illness: The patient is a 77 F with a history of hernia. She says that she has pain from her hernia periodically. She is able to typically massage it and reduce it. Today it has been painful for about 2 hours. It was worse after straining with a bowel movement. She has been unable to pass gas or stool since this happened. 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 She was transferred to the [facility] for surgical care. The volvulus resolved on its own without surgery. The patient completed antibiotic therapy for her pneumonia. She is denying shortness of breath, sputum, or fevers. Denies any other GI symptoms or symptoms. She does take Plavix among her other medications. Physical Examination: Afebrile and vital signs unremarkable except for a blood pressure of 155/112. Patient appears uncomfortable but is not toxic or in distress. She does have a ventral hernia which is palpable. Soft. Slightly tender. Otherwise abdominal exam unremarkable. Heart regular. Lungs clear. Test Results: White count 12.4, chloride 108, glucose 115, BUN 28. Urinalysis unremarkable. CT showed a suspected right middle lobe pneumonia and a supraumbilical hernia with proximal bowel dilation. She also has a right lower lobe nodule and a right renal cyst. Emergency Department Course and Treatment: Patient was treated with fluids and Zofran. She was placed in Trendelenburg. The hernia reduced itself. Her pain resolved and she was able to pass gas. Repeat examination showed no palpable hernia or tenderness. Her workup was fairly unremarkable. I discussed the CT findings. I was concerned for a possible early obstruction, but after the CT, the hernia resolved and she was passing gas. I suspect that her early obstruction has also resolved. The patient says she has been dealing with this pneumonia. She was treated. She was told that she did not need additional antibiotics. Her symptoms have improved and she does not want an additional course of antibiotics at this point. Risks and benefits were discussed. I spoke with Dr. Banda about her ongoing issues. He does not feel that she would be a good surgical candidate at this history, and is referring the patient to the [facility]. I discussed this with the patient. She does not want to go to the [facility] tonight. She is feeling better and would like to follow-up with her surgeon at the [facility] as an outpatient. I believe this is reasonable based on her reevaluation, but advised her to return right away if she has any new or worsening issues. She will also follow-up with her primary care doctor regarding her blood pressure, right lung nodule, and right renal cyst. Treatment Plan: Above Disposition: Discharge Impression: 1. Abdominal pain 2. Right lung nodule 3. Right renal cyst 4. Hypertension This note was generated with [employer] dictation software. It may contain incorrect words, spelling, and punctuation that were not noted in review of the chart prior to signing ED Disposition - Plan for ED Patient: Chief Complaint: Nausea/Vomiting Referrals: Vicente Raya III, MD [Primary Care Provider] -
--- NOTE | 2018-01-29 00:06 | ED.DCSUM_ITS ---
- ER Visit Summary Date of Service: 01/28/18 Chief Complaint: Abdominal pain History of Present Illness: The patient is a 77 F with a history of hernia. She says that she has pain from her hernia periodically. She is able to typically massage it and reduce it. Today it has been painful for about 2 hours. It was worse after straining with a bowel movement. She has been unable to pass gas or stool since this happened. 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 She was transferred to the [facility] for surgical care. The volvulus resolved on its own without surgery. The patient completed antibiotic therapy for her pneumonia. She is de nying shortness of breath, sputum, or fevers. Denies any other GI symptoms or symptoms. She does take Plavix among her other medications. Physical Examination: Afebrile and vital signs unremarkable except for a blood pressure of 155/112. Patient appears uncomfortable but is not toxic or in distress. She does have a ventral hernia which is palpable. Soft. Slightly tender. Otherwise abdominal exam unremarkable. Heart regular. Lungs clear. Test Results: White count 12.4, chloride 108, glucose 115, BUN 28. Urinalysis unremarkable. CT showed a suspected right middle lobe pneumonia and a supraumbilical hernia with proximal bowel dilation. She also has a right lower lobe nodule and a right renal cyst. Emergency Department Course and Treatment: Patient was treated with fluids and Zofran. She was placed in Trendelenburg. The hernia reduced itself. Her pain resolved and she was able to pass gas. Repeat examination showed no palpable hernia or tenderness. Her workup was fairly unremarkable. I discussed the CT findings. I was concerned for a possible early obstruction, but after the CT, the hernia resolved and she was passing gas. I suspect that her early obstruction has also resolved. The patient says she has been dealing with this pneumonia. She was treated. She was told that she did not need additional antibiotics. Her symptoms have improved and she does not want an additional course of antibiotics at this point. Risks and benefits were discussed. I spoke with Dr. Banda about her ongoing issues. He does not feel that she would be a good surgical candidate at this history, and is referring the patient to the [facility]. I discussed this with the patient. She does not want to go to the [facility] tonight. She is feeling better and would like to follow-up with her surgeon at the [facility] as an outpatient. I believe this is reasonable based on her reevaluation, but advised her to return right away if she has any new or worsening issues. She will also follow-up with her primary care doctor regarding her blood pressure, right lung nodule, and right renal cyst. Treatment Plan: Above Disposition: Discharge Impression: 1. Abdominal pain 2. Right lung nodule 3. Right renal cyst 4. Hypertension This note was generated with [employer] dictation software. It may contain incorrect words, spelling, and punctuation that were not noted in review of the chart prior to signing ED Disposition - Plan for ED Patient: Chief Complaint: Nausea/Vomiting Referrals: Vicente Raya III, MD [Primary Care Provider] -
--- NOTE | 2018-01-29 00:07 | ED.DEP ---
ED Disposition - Plan for ED Patient: Chief Complaint: Nausea/Vomiting Instructions: What Is a Hernia? Referrals: Vicente Raya III, MD [Primary Care Provider] - Additional Instructions: Follow-up with your surgeon at the [facility] for your hernia Follow-up with your primary care doctor for your blood pressure. Follow-up for the possible pneumonia as well as a right lung nodule and a right renal cyst.
== END 2018-01-29 00:26 | disposition home or self-care (01) ==
PROVIDERS: Emergency Provider Emergency Medicine; Family Provider Family Medicine; PCP Family Medicine
DX: R10.9 Unspecified abdominal pain (principal); N28.1 Cyst of kidney, acquired; R91.1 Solitary pulmonary nodule; I10 Essential (primary) hypertension; K59.00 Constipation, unspecified; J44.9 Chronic obstructive pulmonary disease, unspecified; I25.10 Atherosclerotic heart disease of native coronary artery without angina pectoris; K43.9 Ventral hernia without obstruction or gangrene; Z79.02 Long term (current) use of antithrombotics/antiplatelets; Z87.01 Personal history of pneumonia (recurrent)
CPT/HCPCS: 74177; 80048; 81001; 85025; 96361; 96374; 99284; J7030; Q9967; A4216; J2405

== ENCOUNTER 2018-02-03 00:59 | Emergency (ER) | payer MEDICARE, SELFPAY ==
[2017-12-22 12:49] VITALS: BMI 49.4
[2018-02-03 01:01] VITALS: BP 253/103; PULSE 87; PULSE 91; RESP 25; RESP 28; TEMP 37.2; O2SAT 94; O2SAT 97; BMI 49.5
--- NOTE | 2018-02-03 01:24 | EKG12_ITS ---
Test Reason : ABD PAIN Blood Pressure : / mmHG Vent. Rate : 083 BPM Atrial Rate : 083 BPM P-R Int : 180 ms QRS Dur : 096 ms QT Int : 380 ms P-R-T Axes : 056 054 064 degrees QTc Int : 446 ms Normal sinus rhythm Nonspecific ST and T wave abnormality Abnormal ECG Confirmed by SANDI LEI, WILBERTO ([id number]), food editor SCOOBY MASCORRO ([id number]) on 02/06/2018 9:37:26 AM Referred By: LILY Confirmed By:WILBERTO JUNIOR MD
--- NOTE | 2018-02-03 01:25 | CT_ITS ---
STUDY: CT ABDOMEN AND PELVIS WITHOUT CONTRAST REASON FOR EXAM: Female, 77 years old. Abdominal pain. Patient has history of incarcerated hernias. RADIATION DOSAGE (If Supplied By Facility): CTDIvol = ( 23.27 ) mGy, DLP = ( 1244.01 ) mGycm TECHNIQUE: Transaxial images were obtained from the dome of the diaphragm to the symphysis pubis without oral contrast, and without intravenous contrast. Sagittal and coronal images were reconstructed. Individualized dose optimization techniques were used for this CT. COMPARISON: CT of the abdomen and pelvis dated November 21, 2017. FINDINGS: There is right middle lobe airspace consolidation and postobstructive atelectasis. The left lung base appears to be clear. There are coronary artery vascular calcifications. Normal liver. There are surgical clips in the gallbladder fossa consistent with a prior cholecystectomy. Normal spleen. Normal pancreas. Normal bilateral adrenal glands. The right kidney has a large cyst arising from the lateral cortex measuring approximately 4.4 cm in greatest dimension. This is attenuation of approximately 0 Hounsfield units suggesting a cyst. There is a multifocal parenchymal loss from the lower pole left kidney that may be the result of previous ischemia and/or infection. There is no evidence for hydronephrosis, hydroureter or radiopaque ureteral calculus. Surgical sutures are visible in the stomach suggesting patient may have had gastric bypass surgery. There appears to be dilated small bowel with maximum transverse dimension of the small bowel of approximately 3.8 cm. The colon also appears to be dilated with maximum transverse dimension of approximately 7.9 cm. The appendix is visualized and appears normal. There is diffuse atherosclerotic calcification of the abdominal aorta, without a demonstrated aneurysm. Normal inferior vena cava. Normal retroperitoneum. Normal urinary bladder. There is atrophy of the uterus. There is a ventral hernia which contains what appears to be incarcerated loop of colon probably arising from the transverse colon. This may be the cause of the bowel obstruction with a transition point occurring in this area. The distal colon is not dilated. There are diffuse degenerative changes of the visualized spine. The bones appear osteopenic. There is a small focal sclerotic lesion in the right iliac wing that may represent a small bone island. CT/Abdomen/Pelvis without Cont IMPRESSION: 1. Bowel obstruction probably related to incarcerated loop of transverse colon through a ventral hernia. 2. Right middle lobe airspace consolidation and postobstructive atelectasis. 3. Sequela of coronary artery vascular disease. 4. Sequela of gastric bypass surgery. 5. Right-sided renal cyst. Electronically Signed: Maru Pillai MD at 3:15 EST , Service support ,
--- NOTE | 2018-02-03 01:28 | ED.DCSUM_ITS ---
- ER Visit Summary Date of Service: 02/03/18 Chief Complaint: Abdominal pain History of Present Illness: The patient is a 77 F with history of 3 hernias requiring surgery who presents for abdominal pain for 7 hours. Pain is diffuse, continuous and severe. Patient has associated nausea and dry heaving. last flatus and bowel movement were this morning. Patient has intermittent episodes of bowel protruding through her hernia, and states he normally can reduce them manually. Seven hours ago patient had recurrence and has been unable to reduce the hernia. She was seen several days ago for the same complaint, but she states she has had to defer surgery due to stents placed 2 weeks ago. Patient is now on Plavix status post stent placement. She also was supposed to get surgery back in November at the [facility], but she states she backed out because she was scared she would get an infection from the surgery. Her surgeon at [facility] is Dr. Finney. Patient took Vicodin for leg pain earlier today but that has not helped the hernia pain at all. Physical Examination: Vital signs: afebrile,hypertensive, HR 91, no hypoxia on room air General: well nourished, well developed, BMI of 50. In mild distress Skin: warm, dry, no rash, no pallor HEENT: normocephalic and atraumatic; PERRL, EOMI, moist mucous membranes Cardiovascular: regular rate and rhythm without murmurs, symmetric mild peripheral edema with chronic lower extremity skin changes, 2+ pulses all distal extremities Respiratory: No increased work of breathing, lungs are clear to auscultation bilaterally, no rales, rhonchi or wheezing Abdominal: Abdomen is distended, diffusely tender with hypoactive bowel sounds, no guarding or rebound, large mass consistent with herniated bowel on the left mid abdomen without overlying induration or color change, bowel sounds auscultated in the mass with manipulation of the mass, not manually reducible MSK: Moves all extremities, no deformities, normal strength Neuro: Awake and alert, oriented ?4. No facial droop, sensation and motor function intact and symmetric Test Results: Abnormal Lab Results 02/03/18 02/03/18 02/03/18 01:08 01:08 02:00 WBC 12.6 H RBC 4.68 Hgb 12.3 Hct 39.4 MCV 84.2 MCH 26.3 L MCHC 31.2 L RDW 19.8 H RDW Differential 60.6 H Plt Count 368 MPV 9.0 Immature Gran % (Auto) 0.700 Neut % (Auto) 75.6 H Lymph % (Auto) 14.9 L Scurry % (Auto) 6.5 Eos % (Auto) 1.8 Baso % (Auto) 0.5 Absolute Neuts (auto) 9.5 H Absolute Lymphs (auto) 1.88 Total Counted Not Reportable Sodium 141 Potassium 3.5 Chloride 105 Carbon Dioxide 30.0 Anion Gap 6 BUN 18 Creatinine 0.83 Estim Creat Clear Calc 45.61 Est GFR (MDRD) Af Amer 86 Est GFR (MDRD) Non-Af 71 BUN/Creatinine Ratio 21.8 H Glucose 120 H Lactic Acid 0.9 Calcium 8.7 Total Bilirubin 0.30 AST 23 ALT 20 Alkaline Phosphatase 97 Troponin I 0.015 Total Protein 7.8 Albumin 3.1 L Globulin 4.7 H Albumin/Globulin Ratio 0.7 L Lipase 178 Clinical Impression(s) from Imaging Studies Abdomen/Pelvis CT 02/03/18 01:25 IMPRESSION: 1. Bowel obstruction probably related to incarcerated loop of transverse colon through a ventral hernia. 2. Right middle lobe airspace consolidation and postobstructive atelectasis. 3. Sequela of coronary artery vascular disease. 4. Sequela of gastric bypass surgery. 5. Right-sided renal cyst. Electronically Signed: Maru Pillai MD at 3:15 EST , Service support , Medications Given Discontinued Medications Sodium Chloride () 1,000 mls @ 1,000 mls/hr IV .Q1H ONE Stop: 02/03/18 02:23 Last Admin: 02/03/18 01:59 Dose: 1,000 mls/hr Morphine Sulfate () 8 mg IV X1 ONE Stop: 02/03/18 01:25 Last Admin: 02/03/18 01:59 Dose: 8 mg Ondansetron HCl (Zofran) 4 mg IV X1 ONE Stop: 02/03/18 01:25 Last Admin: 02/03/18 01:59 Dose: 4 mg Emergency Department Course and Treatment: Patient was given morphine and Zofran for symptomatic relief as well as IV fluids for hydration. Labs performed and a CT scan of the abdomen and pelvis performed to evaluate for bowel obstruction secondary to possibly incarcerated hernia. CT scan did show incarcerated loop of transverse colon resulting in a bowel obstruction. Labs showed a leukocytosis of 12.6, normal electrolyte and hepatic function, and lactate within normal limits at 0.9. Patient had great improvement in her pain after the morphine. Blood pressure and heart rate improved with control of her pain. Patient was discussed with Dr. Roth, who reviewed patient's chart and prior surgical consultation from her visit 5 days ago. At that time she was deemed too complex of a candidate for intervention at this facility, especially given her recent cardiac catheterization and treatment with Plavix. Patient at that time refused transport to the [facility] and opted for outpatient follow-up. Because patient has the incarcerated bowel now and requires surgical evaluation and intervention, patient was discussed with her surgeon Dr. Finney at the [facility], who accepted her for transfer. Patient was amenable with this plan today and was transferred to [facility]. Treatment Plan: [] Disposition: [] Impression: Bowel obstruction secondary to incarcerated transverse colon in ventral hernia This note was generated with [employer] dictation software. It may contain incorrect words, spelling, and punctuation that were not noted in review of the chart prior to signing ED Disposition - Plan for ED Patient: Chief Complaint: Abd Pain Referrals: Vicente Raya III, MD [Primary Care Provider] -
[2018-02-03 01:43] VITALS: BP 239/76
[2018-02-03] MEDS: Ondansetron 4 MG/2 ML Vial IV (01:59)
[2018-02-03] MEDS: 0.9% Normal Saline 1,000 ML 1000 ML IV (01:59)
[2018-02-03] MEDS: Morphine 4 MG/ML Syringe 8 MG IV (01:59)
[2018-02-03 02:12] LABS: Absolute Lymphocyte Count 1.88 X10^3/ul (0.83-4.51); Absolute Neutrophil Count 9.5 X10^3/uL (2.0-7.7); Basophil# 0.06 X10^3/uL; Basophil% 0.5 % (0-1); Eosinophil# 0.23 X10^3/uL; Eosinophils% 1.8 % (0-5); Hematocrit 39.4 % (37-47); Hemoglobin 12.3 g/dl (12.0-15.0); Lymphocyte # 1.88 X10^3/ul (4.0); Lymphocyte % 14.9 % (19-41); Mean Corp Hgb Conc 31.2 g/gl (32-36); Mean Corpuscular Hgb 26.3 pg (27.0-32.0); Mean Corpuscular Volume 84.2 fL (81-99); Monocyte# 0.82 X10^3/uL; Monocyte% 6.5 % (0-10); Neutrophil % 75.6 % (47-70); Platelet Count 368 K/mm3 (150-450); RBC Distribution Width CV 19.8 % (11.6-14.6); RBC Distribution Width SD 60.6 fl (35.1-43.9); Red Blood Count 4.68 M/mm3 (4.2-5.4); White Blood Count 12.6 K/mm3 (4.4-11.0)
[2018-02-03 02:13] LABS: POSITIVE COUNT NO; POSITIVE DIFFERENTIAL NO; POSITIVE MORPHOLOGY NO
[2018-02-03 02:35] LABS: Lactic Acid 0.9 mmol/L (0.4-2.0)
[2018-02-03 02:35] LABS: ALB/GLOB Ratio 0.7 RATIO (0.9-2.4); AST(SGOT) 23 U/L (15-37); Alanine Aminotransfer ALT/SGPT 20 U/L (13-56); Albumin, Serum 3.1 g/dL (3.2-5.0); Alkaline Phosphatase 97 U/L (45-117); Anion Gap 6 (5-15); BUN 18 mg/dL (7-18); BUN/Creat Ratio 21.8 RATIO (10-20); Calcium,Total 8.7 mg/dL (8.5-10.1); Chloride 105 mmol/L (98-107); Creatinine, Serum 0.83 mg/dL (0.55-1.02); EST Glomerular Filtration Rate 71 mL/min (>60); Est Glom Filt Rate - Afr Amer 86 mL/min (>60); Estimated Creatinine Clearance 45.61 ml/min; Globulin 4.7 g/dL (2.2-4.2); Glucose 120 mg/dL (74-106); Lipase 178 U/L (73-393); Potassium 3.5 mmol/L (3.5-5.1); Protein, Total 7.8 g/dL (6.4-8.2); Sodium Level 141 mmol/L (136-145)
[2018-02-03 02:39] VITALS: BP 149/62; PULSE 76; RESP 18; O2SAT 94
[2018-02-03 03:05] VITALS: BP 166/72; PULSE 78; RESP 15; O2SAT 98
--- NOTE | 2018-02-03 04:14 | NURSING ---
ACCEPTED AT [facility] BED H71 BED 22 REPORT
[2018-02-03 04:43] VITALS: BP 128/61; PULSE 77; RESP 24; O2SAT 97
== END 2018-02-03 05:10 | disposition short-term general hospital (02) ==
PROVIDERS: Emergency Provider Emergency Medicine; Family Provider Family Medicine; PCP Family Medicine
DX: K43.6 Other and unspecified ventral hernia with obstruction, without gangrene (principal); N28.1 Cyst of kidney, acquired; Z79.02 Long term (current) use of antithrombotics/antiplatelets; Z79.899 Other long term (current) drug therapy; Z98.84 Bariatric surgery status; E66.9 Obesity, unspecified
CPT/HCPCS: 36415; 74176; 80053; 83605; 83690; 84484; 85025; 93005; 96361; 96374; 96375; 99284; J7030; A4216; J2405

== ENCOUNTER 2018-04-19 07:06 | Inpatient (IN) | payer MEDICARE, SELFPAY ==
[2017-12-22 12:49] VITALS: BMI 49.4
[2018-02-16 15:21] VITALS: BMI 49.0
[2018-04-19] VITALS (27 sets, daily range): BP systolic 56–160; BP diastolic 25–81; PULSE 56–94; RESP 14–24; TEMP 36.6–38.4; O2SAT 93–100; BMI 50.6; BMI 50.1; BMI 50.7
--- NOTE | 2018-04-19 07:16 | RAD_ITS ---
HISTORY: Chest Pain HX PLEURISY. EXAM:XR Chest 1 View: COMPARISON: 01/09/2018 FINDINGS: EKG leads in place. Right middle lobe and right basilar chronic appearing infiltrate with secondary partial obscuration of the right heart border. Left basilar subsegmental atelectasis or infiltrate also suggested. The heart is upper normal in size. The upper lobes may be emphysematous. No pneumothorax. The pulmonary vascularity shows no definite congestion. Thoracic aorta is atherosclerotic. RAD/Chest 1 View (Portable) IMPRESSION: 1. Right middle lobe and right basilar chronic appearing infiltrate. 2. Left basilar subsegmental atelectasis or infiltrate also suggested. at 0759 Reported and signed by: Sergio Garza MD Electronically Signed: Sergio Garza, at 7:58 EST Tel , Service support ,
--- NOTE | 2018-04-19 07:17 | EKG12_ITS ---
Test Reason : CHEST PAIN Blood Pressure : / mmHG Vent. Rate : 088 BPM Atrial Rate : 088 BPM P-R Int : 158 ms QRS Dur : 080 ms QT Int : 346 ms P-R-T Axes : 067 068 140 degrees QTc Int : 418 ms Normal sinus rhythm ST & T wave abnormality, consider inferior ischemia Abnormal ECG Confirmed by SANDI LEI, WILBERTO ([id number]), editor greeting card DANIA FULLER ([id number]) on 04/24/2018 9:48:33 AM Referred By: ROMAN Confirmed By:WILBERTO JUNIOR MD
[2018-04-19] MEDS: 0.9% Normal Saline 1,000 ML 150 ML IV (07:21)
[2018-04-19] MEDS: Morphine 4 MG/ML Syringe IV (07:24)
[2018-04-19] MEDS: Ondansetron 4 MG/2 ML Vial IV (07:25)
[2018-04-19 07:56] LABS: Absolute Neutrophil Count 10.2 X10^3/uL (2.0-7.7); Basophil# 0.02 X10^3/uL; Basophil% 0.2 % (0-1); Eosinophil# 0.12 X10^3/uL; Hematocrit 30.3 % (37-47); Lymphocyte % 7.9 % (19-41); Mean Corp Hgb Conc 29.7 g/gl (32-36); Mean Corpuscular Hgb 24.6 pg (27.0-32.0); Mean Corpuscular Volume 82.8 fL (81-99); Mean Platelet Vol. 8.4 fl (6.2-12.0); Monocyte# 1.24 X10^3/uL; Monocyte% 9.8 % (0-10); Neutrophil # 10.17 X10^3/uL (2.7-7.7); Neutrophil % 80.6 % (47-70); Platelet Count 232 K/mm3 (150-450); RBC Distribution Width CV 17.5 % (11.6-14.6); RBC Distribution Width SD 52.4 fl (35.1-43.9); Red Blood Count 3.66 M/mm3 (4.2-5.4); White Blood Count 12.6 K/mm3 (4.4-11.0)
[2018-04-19 08:00] LABS: POSITIVE COUNT NO; POSITIVE DIFFERENTIAL NO; POSITIVE MORPHOLOGY NO
[2018-04-19 08:04] LABS: ALB/GLOB Ratio 0.6 RATIO (0.9-2.4); AST(SGOT) 14 U/L (15-37); Alanine Aminotransfer ALT/SGPT 12 U/L (13-56); Albumin, Serum 2.4 g/dL (3.2-5.0); Alkaline Phosphatase 82 U/L (45-117); Anion Gap 7 (5-15); BUN 19 mg/dL (7-18); BUN/Creat Ratio 29.4 RATIO (10-20); Calcium,Total 7.9 mg/dL (8.5-10.1); Chloride 107 mmol/L (98-107); Creatinine, Serum 0.65 mg/dL (0.55-1.02); EST Glomerular Filtration Rate 95 mL/min (>60); Est Glom Filt Rate - Afr Amer 114 mL/min (>60); Estimated Creatinine Clearance 37.85 ml/min; Glucose 94 mg/dL (74-106); Potassium 3.9 mmol/L (3.5-5.1); Protein, Total 6.4 g/dL (6.4-8.2); Sodium Level 140 mmol/L (136-145)
--- NOTE | 2018-04-19 08:12 | CT_ITS ---
STUDY: CTA CHEST REASON FOR EXAM: Female, 77 years old. Left-sided chest pain and upper abdominal pain. Hypertension. RADIATION DOSAGE (If Supplied By Facility): CTDIvol = ( 20.41 ) mGy, DLP = ( 1473.61 ) mGycm TECHNIQUE: The examination was performed with the intravenous administration of 100mL ml of Isovue 370 contrast material. Post-processing of the angiographic images was performed, with multiplanar reformation and 3D reconstruction. Individualized dose optimization techniques were used for this CT. COMPARISON: None. FINDINGS: Normal enhancement of the main pulmonary artery and right and left pulmonary arteries. Normal enhancement of the bilateral peripheral pulmonary arteries. There is no demonstrated pulmonary embolism. There is atherosclerotic calcification of the aortic arch with tortuosity. There is no demonstrated aortic dissection. There are calcifications of the coronary arteries. There are visualized mediastinal lymph nodes, which are within normal size limits, and with normal morphology. Normal hilar regions. Normal visualized trachea and bronchi. The lungs are well expanded. Consolidation in both lower lobes worse on the left side. Increased markings in the right upper lobe suggestive of early infiltrate as well. Normal pleura. Normal chest wall structures. There are degenerative changes of thoracic spine. Small hiatal hernia. Right renal cyst with IMPRESSION: Consolidation in both lower lobes worse on the left side. Electronically Signed: Emanuel Ventura MD at 9:42 EST , Service support , STUDY: CTA OF THE ABDOMINAL AORTA AND VISCERAL BRANCHES. REASON FOR EXAM: Female, 77 years old. Left-sided chest pain and upper abdominal pain. RADIATION DOSAGE (If Supplied By Facility): CTDIvol = ( 20.41 ) mGy, DLP = ( 1473.61 ) mGycm TECHNIQUE: Axial CT angiography multi-detector data acquisition was obtained from the dome of the liver to the symphysis pubis following intravenous administration of 100mL ml of Isovue 370 contrast. Axial images and MIP images were reconstructed from the axial data set. Post-processing of the angiographic images was performed, with multiplanar reformation and 3D reconstruction. Individualized dose optimization techniques were used for this CT. TECHNICAL QUALITY: Good COMPARISON: None. Descriptors of Narrowing: None (0%) Mild (< 50%) Moderate (50-70%) Severe (70-90%) Subtotal/Total Occlusion (90-100%) Non-Evaluable (technically non-diagnostic FINDINGS: Bibasilar infiltrates worse on the left side. Coronary artery calcification. Small hiatal hernia. Patient is status post cholecystectomy. Minimally dilated common bile duct Midline ventral hernia containing nondistended bowel. There is a 4.8 cm x 5.3 cm cyst in the midpole of the right Abdominal aorta: Atherosclerotic plaque formation. Celiac and superior mesenteric arteries: Atherosclerotic plaque at the origin of the celiac artery and superior mesenteric arteries Right renal artery(arteries): Stenotic atherosclerotic plaque at the origin of the right renal artery. Left renal artery(arteries): Stenotic atherosclerotic plaque at the origin of the left renal artery CT/CTA Chest W/WO Contrast IMPRESSION: Atherosclerotic plaque formation of the abdominal aorta and major visceral vessels. Midline ventral hernia. Bibasilar infiltrates worse on the left side. Electronically Signed: Emanuel Ventura MD at 9:46 EST , Service support ,
--- NOTE | 2018-04-19 08:15 | CT_ITS ---
STUDY: CTA CHEST REASON FOR EXAM: Female, 77 years old. Left-sided chest pain and upper abdominal pain. Hypertension. RADIATION DOSAGE (If Supplied By Facility): CTDIvol = ( 20.41 ) mGy, DLP = ( 1473.61 ) mGycm TECHNIQUE: The examination was performed with the intravenous administration of 100mL ml of Isovue 370 contrast material. Post-processing of the angiographic images was performed, with multiplanar reformation and 3D reconstruction. Individualized dose optimization techniques were used for this CT. COMPARISON: None. FINDINGS: Normal enhancement of the main pulmonary artery and right and left pulmonary arteries. Normal enhancement of the bilateral peripheral pulmonary arteries. There is no demonstrated pulmonary embolism. There is atherosclerotic calcification of the aortic arch with tortuosity. There is no demonstrated aortic dissection. There are calcifications of the coronary arteries. There are visualized mediastinal lymph nodes, which are within normal size limits, and with normal morphology. Normal hilar regions. Normal visualized trachea and bronchi. The lungs are well expanded. Consolidation in both lower lobes worse on the left side. Increased markings in the right upper lobe suggestive of early infiltrate as well. Normal pleura. Normal chest wall structures. There are degenerative changes of thoracic spine. Small hiatal hernia. Right renal cyst with IMPRESSION: Consolidation in both lower lobes worse on the left side. Electronically Signed: Emanuel Ventura MD at 9:42 EST , Service support , STUDY: CTA OF THE ABDOMINAL AORTA AND VISCERAL BRANCHES. REASON FOR EXAM: Female, 77 years old. Left-sided chest pain and upper abdominal pain. RADIATION DOSAGE (If Supplied By Facility): CTDIvol = ( 20.41 ) mGy, DLP = ( 1473.61 ) mGycm TECHNIQUE: Axial CT angiography multi-detector data acquisition was obtained from the dome of the liver to the symphysis pubis following intravenous administration of 100mL ml of Isovue 370 contrast. Axial images and MIP images were reconstructed from the axial data set. Post-processing of the angiographic images was performed, with multiplanar reformation and 3D reconstruction. Individualized dose optimization techniques were used for this CT. TECHNICAL QUALITY: Good COMPARISON: None. Descriptors of Narrowing: None (0%) Mild (< 50%) Moderate (50-70%) Severe (70-90%) Subtotal/Total Occlusion (90-100%) Non-Evaluable (technically non-diagnostic FINDINGS: Bibasilar infiltrates worse on the left side. Coronary artery calcification. Small hiatal hernia. Patient is status post cholecystectomy. Minimally dilated common bile duct Midline ventral hernia containing nondistended bowel. There is a 4.8 cm x 5.3 cm cyst in the midpole of the right Abdominal aorta: Atherosclerotic plaque formation. Celiac and superior mesenteric arteries: Atherosclerotic plaque at the origin of the celiac artery and superior mesenteric arteries Right renal artery(arteries): Stenotic atherosclerotic plaque at the origin of the right renal artery. Left renal artery(arteries): Stenotic atherosclerotic plaque at the origin of the left renal artery CT/CTA Abdomen W/WO Contrast IMPRESSION: Atherosclerotic plaque formation of the abdominal aorta and major visceral vessels. Midline ventral hernia. Bibasilar infiltrates worse on the left side. Electronically Signed: Emanuel Ventura MD at 9:46 EST , Service support ,
[2018-04-19] MEDS: HYDROmorphone 1 MG/ML Syringe IV (08:17)
[2018-04-19] MEDS: Acetaminophen 325 MG Tablet 650 MG PO (08:18)
[2018-04-19 08:19] LABS: Lactic Acid 0.8 mmol/L (0.4-2.0)
[2018-04-19] MEDS: levoFLOXacin 750 MG Tablet PO (09:34)
[2018-04-19] MEDS: 0.9% Normal Saline 1,000 ML 999 ML IV (09:36)
--- NOTE | 2018-04-19 09:36 | ED.RN ---
MD AWARE OF BP, NS BOLUS ORDERED.
--- NOTE | 2018-04-19 10:02 | ED.VISSUMM ---
- ER Visit Summary Date of Service: 04/19/18 Chief Complaint: [Left-sided chest pain] History of Present Illness: The patient is a 77 F [presents to the emergency department left-sided chest pain that started around 11 PM. Patient describes a sharp stabbing pain is worse with deep breath. Patient states the pain radiates to her left scapula. Patient has had a cough but really not bringing much up. Patient has had some mild nausea but no vomiting. Patient has history of remote pneumonia. Patient has history of coronary artery disease, asthma, COPD, GERD, diabetes, hypertension, high cholesterol, and sleep apnea. Patient has had prior cholecystectomy. She has a history of a large ventral hernia that is going to require repair at some point.] Physical Examination: [HEENT-PERRLA, EOMI. Cranial nerves II through XII grossly intact. TMs clear. Mucous membranes moist. No adenopathy. Cardiovascular-regular rate and rhythm without murmur or ectopy Lungs-diminished breath sounds bilaterally. Expiratory wheezes noted and rhonchi bilaterally. Mild tachypnea. No accessory muscle use or retractions. Abdomen-normoactive bowel sounds, soft. Patient morbidly obese. Some mild diffuse tenderness. There is no rebound, rigidity, or perineal signs. Extremities-intact ?4, normal range of motion, normal pulses, atraumatic] Test Results: [EKG obtained arrival showed a sinus rhythm with a ventricular rate of 88 bpm with some nonspecific ST changes. CBC with differential showed a white count of 12.6, hemoglobin 9.0, hematocrit 30 chemistries unremarkable. Troponin is less than 0.015. Lactate was normal at 0.8. Chest x-ray showed right middle lobe and right basilar infiltrate which appears to be chronic as well as a left basilar infiltrate.] Patient experience more severe pain and therefore a CTA of the chest was obtained to rule out PE versus dissection. CTA showed bilateral lower lobe consolidations without evidence of PE or dissection. CTA of the abdomen pelvis also obtained showed a large ventral hernia without evidence for obstruction as well as a right renal cyst. Emergency Department Course and Treatment: [Patient was started on Levaquin 750 mg IV. Patient was given a DuoNeb aerosol. Patient did have a transient episode of hypotension and was given a liter normal same fluid bolus.] Treatment Plan: Admit [] Disposition: [Admit] Impression: [Bilateral pneumonia Chest pain Anemia] This note was generated with Kristan dictation software. It may contain incorrect words, spelling, and punctuation that were not noted in review of the chart prior to signing ED Disposition - Plan for ED Patient: Referrals: Vicente Raya III, MD [Primary Care Provider] -
[2018-04-19] MEDS: Ipratropium/Albuterol Sulfate 3 ML AMPUL.NEB INHALATION ×3 (10:12→18:44)
--- NOTE | 2018-04-19 12:24 | PCM.HP.STD ---
Problem List (1) Hyperlipidemia Status: Chronic (2) Chronic hypoxemic respiratory failure Status: Chronic (3) History of coronary artery stent placement Status: Chronic Comment: QQK-ZYB-Tczztr LAD (2.25 X 24 Promus Synergy) and MUSHTAQ to 2 tandem lesions Prox LAD (3.5 X 24 Promus Synergy) 01/20/2018 UHO-AFE-Ezsf RCA 03/22/13 BDX-LPA-Rlttzx RCA 2000 and 2002 (4) Atherosclerosis of coronary artery of wiyot heart without angina pectoris Status: Chronic Comment: LCS-SQZ-Mrxvso LAD and MUSHTAQ to 2 tandem lesions Prox LAD 01/20/2018 BPM-DLN-Ikoz RCA 03/22/13 LSP-ORM-Mtchhj RCA 2000 and 2002 (5) HTN (hypertension) Status: Chronic (6) Obesities, morbid Status: Chronic (7) History of diabetes mellitus, type II Status: Chronic (8) History of gastroesophageal reflux (GERD) Status: Chronic (9) Obstructive sleep apnea Status: Chronic History of Present Illness Date of Admission: 04/19/18 Chief Complaint: Left-sided chest pain, shortness of breath. The patient is a 77 year old F with past medical history as mentioned above presented to the emergency room because of left-sided chest pain. She stated that her symptoms started around 1 week ago initially with shaking chills and dry cough with subjective fever. Over the last couple of days, she started having left-sided chest pain, intermittent, goes around her left breast to her left upper back and radiates to her left scapula, sharp pain, 7 out of 10 in severity, aggravated by taking a deep breath, associated with mild shortness of breath and productive cough with pink sputum and without relieving factor. She chronically sleeps with at least 2 or 3 pillows and she denied obvious orthopnea. Denied leg edema or PND. Upon arrival to ER, her blood pressure was stable, she was complaining, heart rate stable and pulse ox was 96% on 3 L. Later, her blood pressure started to drop but she remained asymptomatic. According to the patient, she has been having issues with low blood pressure with symptoms lately. Her routine blood work was remarkable for leukocytosis, hemoglobin of 9 g/dL, otherwise normal. Lactic acid was normal. LFT was normal. Troponin was negative. Chest x-ray revealed questionable bilateral basal infiltrate and cardiomegaly. CTA chest showed no evidence of PE or dissection, revealed bilateral lower lobe consolidation worse on the left side. CTA abdomen revealed atherosclerotic plaques of the abdominal aorta, midline ventral hernia and still showing bilateral basilar infiltrate worse on the left side. She is being admitted for acute bilateral community acquired pneumonia with sepsis and asymptomatic hypotension. Past Medical History Past Medical History (Chronic Problems): Chronic Problems (Last Updated 04/19/18 @ 12:24 by Teresita Hanley MD) Hyperlipidemia (Chronic) VBI (vertebrobasilar insufficiency) (Chronic) Stage 2 moderate COPD by GOLD classification (Chronic) Chronic hypoxemic respiratory failure (Chronic) History of right-sided carotid endarterectomy (Chronic ~07/2014) left subclavian artery stent (Chronic ~03/2017) Stenosis of left subclavian artery (Chronic ~03/2017) stent the left subclavian with a 7 x 39 Poonam History of coronary artery stent placement (Chronic 01/20/18) GPD-SNK-Vnewbp LAD (2.25 X 24 Promus Synergy) and MUSHTAQ to 2 tandem lesions Prox LAD (3.5 X 24 Promus Synergy) 01/20/2018 HKG-AGL-Eask RCA 03/22/13 WJR-JDG-Wkddqg RCA 2000 and 2002 Atherosclerosis of coronary artery of wiyot heart without angina pectoris (Chronic) WYY-RQF-Cbvton LAD and MUSHTAQ to 2 tandem lesions Prox LAD 01/20/2018 YNI-CIY-Cbdy RCA 03/22/13 DSF-VRP-Wjimxr RCA 2000 and 2002 Asthma (Chronic) HTN (hypertension) (Chronic) Tobacco abuse (Chronic) Obesities, morbid (Chronic) History of COPD (Chronic) History of diabetes mellitus, type II (Chronic) History of gastroesophageal reflux (GERD) (Chronic) Obstructive sleep apnea (Chronic) Medical History: Medical History (Last Updated 04/19/18 @ 12:24 by Teresita Hanley MD) Hyperlipidemia (Chronic) E78.5 Stenosis of left subclavian artery (Chronic) Onset Date: ~03/2017 I77.1 stent the left subclavian with a 7 x 39 Poonam Atherosclerosis of coronary artery of wiyot heart without angina pectoris (Chronic) I25.10 DVQ-MLR-Naguih LAD and MUSHTAQ to 2 tandem lesions Prox LAD 01/20/2018 TLF-PUM-Oidf RCA 03/22/13 NVD-XNC-Mewevj RCA 2000 and 2002 Asthma (Chronic) J45.909 HTN (hypertension) (Chronic) I10 Tobacco abuse (Chronic) Z72.0 History of COPD (Chronic) Z87.09 History of diabetes mellitus, type II (Chronic) Z86.39 History of gastroesophageal reflux (GERD) (Chronic) Z87.19 Obstructive sleep apnea (Chronic) G47.33 Carotid artery stenosis I65.29 Allergies aspirin [ASA] Allergy (Severe, Verified 02/06/18 11:38) Hives bupropion [From Wellbutrin] Allergy (Verified 02/06/18 11:38) Unknown codeine Allergy (Verified 02/06/18 11:38) Unknown meperidine HCl [From Demerol] Allergy (Verified 02/06/18 11:38) Hives naproxen sodium [From Anaprox] Allergy (Verified 02/06/18 11:38) Unknown Penicillins [PCN] Allergy (Verified 02/06/18 11:38) Unknown propoxyphene HCl [From Darvon] Allergy (Verified 02/06/18 11:38) Hives Sulfa (Sulfonamide Antibiotics) Allergy (Verified 02/06/18 11:38) Unknown gabapentin Adverse Reaction (Intermediate, Verified 02/14/18 17:06) Mental status change, foggy headed NSAIDS (Non-Steroidal Anti-Inflamma Adverse Reaction (Verified 02/06/18 11:38) Other Home Medications: Ambulatory Orders Medication Instructions Recorded Budesonide/Formoterol 80-4.5 2 puff INHALATION BID 02/28/13 [Symbicort 80-4.5 Mcg Inhaler] Citalopram [Celexa] 20 mg PO DAILY 02/28/13 Fluticasone 0.05% [Flonase Nasal 2 spray NASAL DAILY PRN 02/28/13 [place]] Montelukast [Singulair] 10 mg PO QHS 07/08/14 Albuterol IH (ProAir) [Proair Hfa] 2 puff INHALATION Q6H PRN PRN 07/15/14 Atorvastatin Calcium [Lipitor] 40 mg PO QHS #30 tab 10/03/16 Ferrous Gluconate 325 mg PO BIDCM 11/18/17 Tolterodine Tartrate [Detrol LA] 4 mg PO DAILY 11/18/17 furosemide 20 mg tablet 20 mg PO DAILY #30 tab 12/12/17 nitroglycerin 0.4 mg sublingual 0.4 mg SUBLINGUAL Q5M PRN #25 tab 12/12/17 tablet Cholecalciferol (Vitamin D3) 1,000 unit PO DAILY 12/22/17 [Vitamin D3] Hydrocodone/Acetaminophen 1 tab PO BID PRN PRN 12/22/17 [Hydrocodone-Acetamin 5-325 mg] clopidogrel 75 mg tablet 75 mg PO BID #60 tab 12/23/17 metoprolol tartrate 25 mg tablet 12.5 mg PO BID #30 tab 12/23/17 omeprazole 40 mg capsule,delayed 40 mg PO DAILY 02/14/18 release pramipexole 1 mg tablet 1 mg PO TID PRN tab 02/14/18 losartan 25 mg tablet 25 mg PO DAILY 02/16/18 Surgical History: Surgical History (Last Updated 04/19/18 @ 12:24 by Teresita Hanley MD) History of right-sided carotid endarterectomy (Chronic) Onset Date: ~07/2014 Z98.890 left subclavian artery stent (Chronic) Onset Date: ~03/2017 History of coronary artery stent placement (Chronic) Onset Date: 01/20/18 Z95.5 YWM-TEK-Xtsgxb LAD (2.25 X 24 Promus Synergy) and MUSHTAQ to 2 tandem lesions Prox LAD (3.5 X 24 Promus Synergy) 01/20/2018 QQH-TDP-Qqzp RCA 03/22/13 YJD-KMD-Qryiuu RCA 2000 and 2002 History of right knee joint replacement Z96.651 History of section Z98.891 History of cholecystectomy Z98.890, Z90.49 H/O bariatric surgery (Inactive) Z98.84 Surgical History: angioplasty, - - 3 heart stents, bariatric surgery and , carotid endarterectemy Psychiatric History: No pertinent psych hx [employer] History: No pertinent [employer] history Smoking Status: Current every day smoker Tobacco Use: Cigarettes Alcohol: None Drugs: None - *Family History Maternal Family History: Family History (Last Reviewed 02/16/18 @ 15:21 by Fang Gomez) Mother CVA (cerebral vascular accident) Father Asthma Hypertension High blood cholesterol level Arthritis History Items: Stroke Review of Systems Constitutional: Reports: Chills, Malaise. Denies: Anorexia, Fever Eyes: Denies: Blurred vision, Double vision, Drainage, Redness HEENT: Denies: Difficulty Hearing, Ear Pain, Eye Pain, Nasal Congestion, Sore Throat Cardiovascular: Reports: Chest Pain. Denies: Chest Tightness, Edema, Heaviness, Light Headedness, Palpitations, Syncope Respiratory: Reports: Cough, Pleuritic Pain, Shortness of breath at rest, Sputum production. Denies: Wheezing Gastrointestinal: Denies: Abdominal Pain, Constipation, Diarrhea, Nausea, Vomiting Genitourinary: Denies: Dysuria, Frequency, Hematuria Musculoskeletal: Denies: Arm Pain, Back Pain, Foot Pain Skin: Denies: Dryness, Rash Neurological: Denies: Balance problems, Double vision, Change in Speech, Slurred speech, Confusion, Focal weakness, Incoordination Psychiatric: Denies: Anxiety, Depression Endocrine: Denies: Change in Body Habitus, Polydipsia VTE Information - Inpt Only VTE Present on Admission: No VTE Mechan Device Prophylaxis: None VTE Pharm Prophylaxis ordered?: Yes - Physical Exam General: Alert, Oriented x3, Cooperative, - - Minimally short of breath. HEENT: Atraumatic, PERRLA, EOMI, Normocephalic Oral: Moist Mucosa, No Gingival or Mucosal Lesions/ Ulcerations Neck: Supple, No JVD, Negative Carotid Bruits, Trachea Midline, Thyroid Normal Size and Texture Lungs: No wheeze, Diminished, Rales, Short of Breath, - - Decreased breath sounds bilateral at the bases, bilateral basal crackles. Cardiovascular: Regular rate, Regular Rhythm, Normal S1, Normal S2, PMI Normal Abdomen: Bowel Sounds Present, Soft, Non Tender, Non-Distended, No Hepato-splenomegaly, Obese, Hernia, - - Ventral hernia. Extremities: No clubbing, No cyanosis, Edema - Trace edema. Skin: No rashes, No breakdown Lymphatic: No Cervical, Supraclavicular, or Inguinal Adenopathy Neurological: Cranial nerves II-XII grossly intact, Motor Exam 5/5 strength throughout Psych/Mental Status: Normal Affect, Appropriate, Alert and oriented to time, place, person, mood and affect Vital Signs Temp Pulse Resp BP Pulse Ox 98 F 73 18 72/43 L 98 04/19/18 12:00 04/19/18 12:00 04/19/18 12:00 04/19/18 12:00 04/19/18 12:00 Oxygen Flow Rate (L/min) 4 Oxygen Delivery Method Nasal Cannula Weight: 277 lb Body Mass Index (BMI) 50.6 Finger Stick Blood Glucose 88 Laboratory Tests Past 24 Hrs 04/19/18 04/19/18 04/19/18 07:40 07:40 07:46 WBC 12.6 H RBC 3.66 L Hgb 9.0 L Hct 30.3 L MCV 82.8 MCH 24.6 L MCHC 29.7 L RDW 17.5 H RDW Differential 52.4 H Plt Count 232 MPV 8.4 Immature Gran % (Auto) 0.500 Neut % (Auto) 80.6 H Lymph % (Auto) 7.9 L Cooper % (Auto) 9.8 Eos % (Auto) 1.0 Baso % (Auto) 0.2 Absolute Neuts (auto) 10.2 H Absolute Lymphs (auto) 1.00 Total Counted Not Reportable Sodium 140 Potassium 3.9 Chloride 107 Carbon Dioxide 26.0 Anion Gap 7 BUN 19 H Creatinine 0.65 Estim Creat Clear Calc 37.85 Est GFR (MDRD) Af Amer 114 Est GFR (MDRD) Non-Af 95 BUN/Creatinine Ratio 29.4 H Glucose 94 Lactic Acid Calcium 7.9 L Iron Pending TIBC Pending Iron Saturation Pending Ferritin Pending Total Bilirubin 0.50 AST 14 L ALT 12 L Alkaline Phosphatase 82 Troponin I < 0.015 B-Natriuretic Peptide Total Protein 6.4 Albumin 2.4 L Globulin 4.0 Albumin/Globulin Ratio 0.6 L 04/19/18 04/19/18 07:46 07:46 WBC RBC Hgb Hct MCV MCH MCHC RDW RDW Differential Plt Count MPV Immature Gran % (Auto) Neut % (Auto) Lymph % (Auto) Cooper % (Auto) Eos % (Auto) Baso % (Auto) Absolute Neuts (auto) Absolute Lymphs (auto) Total Counted Sodium Potassium Chloride Carbon Dioxide Anion Gap BUN Creatinine Estim Creat Clear Calc Est GFR (MDRD) Af Amer Est GFR (MDRD) Non-Af BUN/Creatinine Ratio Glucose Lactic Acid 0.8 Calcium Iron TIBC Iron Saturation Ferritin Total Bilirubin AST ALT Alkaline Phosphatase Troponin I B-Natriuretic Peptide Pending Total Protein Albumin Globulin Albumin/Globulin Ratio Clinical Impression(s) from Imaging Studies Chest X-Ray 04/19/18 07:16 IMPRESSION: 1. Right middle lobe and right basilar chronic appearing infiltrate. 2. Left basilar subsegmental atelectasis or infiltrate also suggested. at 0759 Reported and signed by: Sergio Garza MD Electronically Signed: Sergio Garza, at 7:58 EST Tel , Service support , Chest CTA 04/19/18 08:12 IMPRESSION: Atherosclerotic plaque formation of the abdominal aorta and major visceral vessels. Midline ventral hernia. Bibasilar infiltrates worse on the left side. Electronically Signed: Emanuel Ventura MD at 9:46 EST , Service support , Abdomen CTA 04/19/18 08:15 IMPRESSION: Atherosclerotic plaque formation of the abdominal aorta and major visceral vessels. Midline ventral hernia. Bibasilar infiltrates worse on the left side. Electronically Signed: Emanuel Ventura MD at 9:46 EST , Service support , Assessment/Plan This is a 77 years old female patient presented to the emergency room because of left lateral pleuritic chest pain associated with shortness of breath and productive cough as well as chills and subjective fever, found to have bilateral lower lobe consolidation worse on the left side on CTA chest and she is being admitted for bilateral lower lobe community acquired pneumonia, became hypotensive in the ER without symptoms and with normal lactic acid. #1 bilateral lower lobe community-acquired pneumonia/sepsis: Chest x-ray as well as CTA chest reviewed. Patient has been febrile, have leukocytosis with normal lactic acid. Initially, blood pressure stable and then start to drop. Patient mentioned that she has been having issues with low blood pressure recently. She is asymptomatic. Plan: Admit to PCU, cardiac monitoring, serial cardiac enzymes, blood culture, sputum culture, urine culture, pneumococcal and Legionella antigen, respiratory panel for viruses, start IV Levaquin for pneumonia, bronchodilators, incentive spirometer, chest physiotherapy, repeat CBC and BMP tomorrow morning, PT OT evaluation and treatment. #2 left lateral pleuritic chest pain: Patient's description for her pain was typically for pleuritic chest pain, pleurisy. Her troponin is negative. EKG revealed normal sinus rhythm with ST segment depression in leads V4, V5 and V6 and those changes are new compared to EKG from January,. Those changes could be due to hypoxia and pneumonia. She had a history of CAD status post stents back in January,. Plan: Serial cardiac enzymes, repeat EKG tomorrow morning. #3 hypotension: She is asymptomatic, reported minimal dizziness and she stated that her pressure has been on the lower side recently. I reviewed her chart and her blood pressure has been fluctuating over the last 3 months, has been around 80 systolic at times while she was in the hospital on late December and early February,. Plan: IV fluids, close blood pressure monitor, hold losartan, continue metoprolol. #4 CAD status post PCI/stents: EKG reviewed, changes noted as above. Troponin is negative. Plan to continue Plavix twice daily, statins, metoprolol, hold losartan. #5 anemia: It is normocytic anemia. Baseline hemoglobin has been around 11-12 g/dL, admission hemoglobin is 9 g/dL. Patient denies any active bleeding. Her platelet count, pro time and INR are normal. Plan: Serum iron, TIBC, ferritin, stool for occult blood. #6 type 2 diabetes mellitus: ADA diet, Accu-Cheks, insulin sliding scale, she has not been on any treatment at home. #7 COPD/chronic respiratory failure: On home oxygen at 3 L as needed. Plan for DuoNeb every 6 hours, albuterol as needed, oxygen by nasal cannula as above. #8 hypertension: Blood pressure is on the lower side this time, she is asthmatic. Plan for IV fluids, hold losartan, continue metoprolol. #9 hyperlipidemia: Continue statins. #10 DVT prophylaxis: Subcu Lovenox. This note was generated with [email or web address] dictation software. It may contain incorrect words, spelling, and punctuation that were not noted in checking the note before signing. Code Visit Inpatient E&M: 35813 In Hosp L3
[2018-04-19] MEDS: 0.9% Normal Saline 1,000 ML 100 ML IV ×2 (12:30→21:27)
--- NOTE | 2018-04-19 12:31 | HP.PCM_ITS ---
Problem List (1) Hyperlipidemia Status: Chronic (2) Chronic hypoxemic respiratory failure Status: Chronic (3) History of coronary artery stent placement Status: Chronic Comment: SGM-FPD-Qhlaxy LAD (2.25 X 24 Promus Synergy) and MUSHTAQ to 2 tandem lesions Prox LAD (3.5 X 24 Promus Synergy) 01/20/2018 LUI-DHH-Jpmt RCA 03/22/13 RGM-IEU-Tejpju RCA 2000 and 2002 (4) Atherosclerosis of coronary artery of wiyot heart without angina pectoris Status: Chronic Comment: CTN-UUC-Altvyf LAD and MUSHTAQ to 2 tandem lesions Prox LAD 01/20/2018 WYE-MQO-Fvuq RCA 03/22/13 HDU-VTN-Upnsow RCA 2000 and 2002 (5) HTN (hypertension) Status: Chronic (6) Obesities, morbid Status: Chronic (7) History of diabetes mellitus, type II Status: Chronic (8) History of gastroesophageal reflux (GERD) Status: Chronic (9) Obstructive sleep apnea Status: Chronic History of Present Illness Date of Admission: 04/19/18 Chief Complaint: Left-sided chest pain, shortness of breath. The patient is a 77 year old F with past medical history as mentioned above presented to the emergency room because of left-sided chest pain. She stated that her symptoms started around 1 week ago initially with shaking chills and dry cough with subjective fever. Over the last couple of days, she started having left-sided chest pain, intermittent, goes around her left breast to her left upper back and radiates to her left scapula, sharp pain, 7 out of 10 in severity, aggravated by taking a deep breath, associated with mild shortness of breath and productive cough with pink sputum and without relieving factor. She chronically sleeps with at least 2 or 3 pillows and she denied obvious orthopnea. Denied leg edema or PND. Upon arrival to ER, her blood pressure was stable, she was complaining, heart rate stable and pulse ox was 96% on 3 L. Later, her blood pressure started to drop but she remained asymptomatic. According to the patient, she has been having issues with low blood pressure with symptoms lately. Her routine blood work was remarkable for leukocytosis, hemoglobin of 9 g/dL, otherwise normal. Lactic acid was normal. LFT was normal. Troponin was negative. Chest x-ray revealed questionable bilateral basal infiltrate and cardiomegaly. CTA chest showed no evidence of PE or dissection, revealed bilateral lower lobe consolidation worse on the left side. CTA abdomen revealed atherosclerotic plaques of the abdominal aorta, midline ventral hernia and still showing bilateral basilar infiltrate worse on the left side. She is being admitted for acute bilateral community acquired pneumonia with sepsis and asymptomatic hypotension. Past Medical History Past Medical History (Chronic Problems): Chronic Problems (Last Updated 04/19/18 @ 12:24 by Teresita Hanley MD) Hyperlipidemia (Chronic) VBI (vertebrobasilar insufficiency) (Chronic) Stage 2 moderate COPD by GOLD classification (Chronic) Chronic hypoxemic respiratory failure (Chronic) History of right-sided carotid endarterectomy (Chronic ~07/2014) left subclavian artery stent (Chronic ~03/2017) Stenosis of left subclavian artery (Chronic ~03/2017) stent the left subclavian with a 7 x 39 Poonam History of coronary artery stent placement (Chronic 01/20/18) UJP-VFO-Choiwe LAD (2.25 X 24 Promus Synergy) and MUSHTAQ to 2 tandem lesions Prox LAD (3.5 X 24 Promus Synergy) 01/20/2018 DTZ-HRL-Yrjh RCA 03/22/13 REJ-QSJ-Nfjyzh RCA 2000 and 2002 Atherosclerosis of coronary artery of wiyot heart without angina pectoris (Chronic) OXP-JMP-Krvbpm LAD and MUSHTAQ to 2 tandem lesions Prox LAD 01/20/2018 OJI-AKK-Ftgg RCA 03/22/13 NMQ-IEF-Lhordn RCA 2000 and 2002 Asthma (Chronic) HTN (hypertension) (Chronic) Tobacco abuse (Chronic) Obesities, morbid (Chronic) History of COPD (Chronic) History of diabetes mellitus, type II (Chronic) History of gastroesophageal reflux (GERD) (Chronic) Obstructive sleep apnea (Chronic) Medical History: Medical History (Last Updated 04/19/18 @ 12:24 by Teresita Hanley MD) Hyperlipidemia (Chronic) E78.5 Stenosis of left subclavian artery (Chronic) Onset Date: ~03/2017 I77.1 stent the left subclavian with a 7 x 39 Poonam Atherosclerosis of coronary artery of wiyot heart without angina pectoris (Chronic) I25.10 OBT-GPE-Ckbpjk LAD and MUSHTAQ to 2 tandem lesions Prox LAD 01/20/2018 VYU-YQU-Unae RCA 03/22/13 IYC-QAV-Fhuxcy RCA 2000 and 2002 Asthma (Chronic) J45.909 HTN (hypertension) (Chronic) I10 Tobacco abuse (Chronic) Z72.0 History of COPD (Chronic) Z87.09 History of diabetes mellitus, type II (Chronic) Z86.39 History of gastroesophageal reflux (GERD) (Chronic) Z87.19 Obstructive sleep apnea (Chronic) G47.33 Carotid artery stenosis I65.29 Allergies aspirin [ASA] Allergy (Severe, Verified 02/06/18 11:38) Hives bupropion [From Wellbutrin] Allergy (Verified 02/06/18 11:38) Unknown codeine Allergy (Verified 02/06/18 11:38) Unknown meperidine HCl [From Demerol] Allergy (Verified 02/06/18 11:38) Hives naproxen sodium [From Anaprox] Allergy (Verified 02/06/18 11:38) Unknown Penicillins [PCN] Allergy (Verified 02/06/18 11:38) Unknown propoxyphene HCl [From Darvon] Allergy (Verified 02/06/18 11:38) Hives Sulfa (Sulfonamide Antibiotics) Allergy (Verified 02/06/18 11:38) Unknown gabapentin Adverse Reaction (Intermediate, Verified 02/14/18 17:06) Mental status change, foggy headed NSAIDS (Non-Steroidal Anti-Inflamma Adverse Reaction (Verified 02/06/18 11:38) Other Home Medications: Ambulatory Orders Medication Instructions Recorded Budesonide/Formoterol 80-4.5 2 puff INHALATION BID 02/28/13 [Symbicort 80-4.5 Mcg Inhaler] Citalopram [Celexa] 20 mg PO DAILY 02/28/13 Fluticasone 0.05% [Flonase Nasal 2 spray NASAL DAILY PRN 02/28/13 [place]] Montelukast [Singulair] 10 mg PO QHS 07/08/14 Albuterol IH (ProAir) [Proair Hfa] 2 puff INHALATION Q6H PRN PRN 07/15/14 Atorvastatin Calcium [Lipitor] 40 mg PO QHS #30 tab 10/03/16 Ferrous Gluconate 325 mg PO BIDCM 11/18/17 Tolterodine Tartrate [Detrol LA] 4 mg PO DAILY 11/18/17 furosemide 20 mg tablet 20 mg PO DAILY #30 tab 12/12/17 nitroglycerin 0.4 mg sublingual 0.4 mg SUBLINGUAL Q5M PRN #25 tab 12/12/17 tablet Cholecalciferol (Vitamin D3) 1,000 unit PO DAILY 12/22/17 [Vitamin D3] Hydrocodone/Acetaminophen 1 tab PO BID PRN PRN 12/22/17 [Hydrocodone-Acetamin 5-325 mg] clopidogrel 75 mg tablet 75 mg PO BID #60 tab 12/23/17 metoprolol tartrate 25 mg tablet 12.5 mg PO BID #30 tab 12/23/17 omeprazole 40 mg capsule,delayed 40 mg PO DAILY 02/14/18 release pramipexole 1 mg tablet 1 mg PO TID PRN tab 02/14/18 losartan 25 mg tablet 25 mg PO DAILY 02/16/18 Surgical History: Surgical History (Last Updated 04/19/18 @ 12:24 by Teresita Hanley MD) History of right-sided carotid endarterectomy (Chronic) Onset Date: ~07/2014 Z98.890 left subclavian artery stent (Chronic) Onset Date: ~03/2017 History of coronary artery stent placement (Chronic) Onset Date: 01/20/18 Z95.5 PLP-BUM-Bdjtha LAD (2.25 X 24 Promus Synergy) and MUSHTAQ to 2 tandem lesions Prox LAD (3.5 X 24 Promus Synergy) 01/20/2018 XTQ-ODH-Pwuj RCA 03/22/13 USU-KZY-Kbbdlw RCA 2000 and 2002 History of right knee joint replacement Z96.651 History of section Z98.891 History of cholecystectomy Z98.890, Z90.49 H/O bariatric surgery (Inactive) Z98.84 Surgical History: angioplasty, - - 3 heart stents, bariatric surgery and c- section, carotid endarterectemy Psychiatric History: No pertinent psych hx 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 Denies: Anorexia, Fever Eyes: Denies: Blurred vision, Double vision, Drainage, Redness HEENT: Denies: Difficulty Hearing, Ear Pain, Eye Pain, Nasal Congestion, Sore Throat Cardiovascular: Reports: Chest Pain. Denies: Chest Tightness, Edema, Heaviness, Light Headedness, Palpitations, Syncope Respiratory: Reports: Cough, Pleuritic Pain, Shortness of breath at rest, Sputum production. Denies: Wheezing Gastrointestinal: Denies: Abdominal Pain, Constipation, Diarrhea, Nausea, Vomiting Genitourinary: Denies: Dysuria, Frequency, Hematuria Musculoskeletal: Denies: Arm Pain, Back Pain, Foot Pain Skin: Denies: Dryness, Rash Neurological: Denies: Balance problems, Double vision, Change in Speech, Slurred speech, Confusion, Focal weakness, Incoordination Psychiatric: Denies: Anxiety, Depression Endocrine: Denies: Change in Body Habitus, Polydipsia VTE Information - Inpt Only VTE Present on Admission: No VTE Mechan Device Prophylaxis: None VTE Pharm Prophylaxis ordered?: Yes - Physical Exam General: Alert, Oriented x3, Cooperative, - - Minimally short of breath. HEENT: Atraumatic, PERRLA, EOMI, Normocephalic Oral: Moist Mucosa, No Gingival or Mucosal Lesions/ Ulcerations Neck: Supple, No JVD, Negative Carotid Bruits, Trachea Midline, Thyroid Normal Size and Texture Lungs: No wheeze, Diminished, Rales, Short of Breath, - - Decreased breath sounds bilateral at the bases, bilateral basal crackles. Cardiovascular: Regular rate, Regular Rhythm, Normal S1, Normal S2, PMI Normal Abdomen: Bowel Sounds Present, Soft, Non Tender, Non-Distended, No Hepato- splenomegaly, Obese, Hernia, - - Ventral hernia. Extremities: No clubbing, No cyanosis, Edema - Trace edema. Skin: No rashes, No breakdown Lymphatic: No Cervical, Supraclavicular, or Inguinal Adenopathy Neurological: Cranial nerves II-XII grossly intact, Motor Exam 5/5 strength throughout Psych/Mental Status: Normal Affect, Appropriate, Alert and oriented to time, place, person, mood and affect Vital Signs Temp Pulse Resp BP Pulse Ox 98 F 73 18 72/43 L 98 04/19/18 12:00 04/19/18 12:00 04/19/18 12:00 04/19/18 12:00 04/19/18 12:00 Oxygen Flow Rate (L/min) 4 Oxygen Delivery Method Nasal Cannula Weight: 277 lb Body Mass Index (BMI) 50.6 Finger Stick Blood Glucose 88 Laboratory Tests Past 24 Hrs 04/19/18 04/19/18 04/19/18 07:40 07:40 07:46 WBC 12.6 H RBC 3.66 L Hgb 9.0 L Hct 30.3 L MCV 82.8 MCH 24.6 L MCHC 29.7 L RDW 17.5 H RDW Differential 52.4 H Plt Count 232 MPV 8.4 Immature Gran % (Auto) 0.500 Neut % (Auto) 80.6 H Lymph % (Auto) 7.9 L Sumter % (Auto) 9.8 Eos % (Auto) 1.0 Baso % (Auto) 0.2 Absolute Neuts (auto) 10.2 H Absolute Lymphs (auto) 1.00 Total Counted Not Reportable Sodium 140 Potassium 3.9 Chloride 107 Carbon Dioxide 26.0 Anion Gap 7 BUN 19 H Creatinine 0.65 Estim Creat Clear Calc 37.85 Est GFR (MDRD) Af Amer 114 Est GFR (MDRD) Non-Af 95 BUN/Creatinine Ratio 29.4 H Glucose 94 Lactic Acid Calcium 7.9 L Iron Pending TIBC Pending Iron Saturation Pending Ferritin Pending Total Bilirubin 0.50 AST 14 L ALT 12 L Alkaline Phosphatase 82 Troponin I < 0.015 B-Natriuretic Peptide Total Protein 6.4 Albumin 2.4 L Globulin 4.0 Albumin/Globulin Ratio 0.6 L 04/19/18 04/19/18 07:46 07:46 WBC RBC Hgb Hct MCV MCH MCHC RDW RDW Differential Plt Count MPV Immature Gran % (Auto) Neut % (Auto) Lymph % (Auto) Sum[place] % (Auto) Eos % (Auto) Baso % (Auto) Absolute Neuts (auto) Absolute Lymphs (auto) Total Counted Sodium Potassium Chloride Carbon Dioxide Anion Gap BUN Creatinine Estim Creat Clear Calc Est GFR (MDRD) Af Amer Est GFR (MDRD) Non-Af BUN/Creatinine Ratio Glucose Lactic Acid 0.8 Calcium Iron TIBC Iron Saturation Ferritin Total Bilirubin AST ALT Alkaline Phosphatase Troponin I B-Natriuretic Peptide Pending Total Protein Albumin Globulin Albumin/Globulin Ratio Clinical Impression(s) from Imaging Studies Chest X-Ray 04/19/18 07:16 IMPRESSION: 1. Right middle lobe and right basilar chronic appearing infiltrate. 2. Left basilar subsegmental atelectasis or infiltrate also suggested. at 0759 Reported and signed by: Sergio Garza MD Electronically Signed: Sergio Garza, at 7:58 EST Tel , Service support , Chest CTA 04/19/18 08:12 IMPRESSION: Atherosclerotic plaque formation of the abdominal aorta and major visceral vessels. Midline ventral hernia. Bibasilar infiltrates worse on the left side. Electronically Signed: Emanuel Ventura MD at 9:46 EST , Service support , Abdomen CTA 04/19/18 08:15 IMPRESSION: Atherosclerotic plaque formation of the abdominal aorta and major visceral vessels. Midline ventral hernia. Bibasilar infiltrates worse on the left side. Electronically Signed: Emanuel Ventura MD at 9:46 EST , Service support , Assessment/Plan This is a 77 years old female patient presented to the emergency room because of left lateral pleuritic chest pain associated with shortness of breath and productive cough as well as chills and subjective fever, found to have bilateral lower lobe consolidation worse on the left side on CTA chest and she is being admitted for bilateral lower lobe community acquired pneumonia, became hypotensive in the ER without symptoms and with normal lactic acid. #1 bilateral lower lobe community-acquired pneumonia/sepsis: Chest x-ray as well as CTA chest reviewed. Patient has been febrile, have leukocytosis with normal lactic acid. Initially, blood pressure stable and then start to drop. Patient mentioned that she has been having issues with low blood pressure recently. She is asymptomatic. Plan: Admit to PCU, cardiac monitoring, serial cardiac enzymes, blood culture, sputum culture, urine culture, pneumococcal and Legionella antigen, respiratory panel for viruses, start IV Levaquin for pneumonia, bronchodilators, incentive spirometer, chest physiotherapy, repeat CBC and BMP tomorrow morning, PT OT evaluation and treatment. #2 left lateral pleuritic chest pain: Patient's description for her pain was typically for pleuritic chest pain, pleurisy. Her troponin is negative. EKG revealed normal sinus rhythm with ST segment depression in leads V4, V5 and V6 and those changes are new compared to EKG from January,. Those changes could be due to hypoxia and pneumonia. She had a history of CAD status post stents back in January,. Plan: Serial cardiac enzymes, repeat EKG tomorrow morning. #3 hypotension: She is asymptomatic, reported minimal dizziness and she stated that her pressure has been on the lower side recently. I reviewed her chart and her blood pressure has been fluctuating over the last 3 months, has been around 80 systolic at times while she was in the hospital on late December and early February,. Plan: IV fluids, close blood pressure monitor, hold losartan, continue metoprolol. #4 CAD status post PCI/stents: EKG reviewed, changes noted as above. Troponin is negative. Plan to continue Plavix twice daily, statins, metoprolol, hold losartan. #5 anemia: It is normocytic anemia. Baseline hemoglobin has been around 11-12 g/dL, admission hemoglobin is 9 g/dL. Patient denies any active bleeding. Her platelet count, pro time and INR are normal. Plan: Serum iron, TIBC, ferritin, stool for occult blood. #6 type 2 diabetes mellitus: ADA diet, Accu-Cheks, insulin sliding scale, she has not been on any treatment at home. #7 COPD/chronic respiratory failure: On home oxygen at 3 L as needed. Plan for DuoNeb every 6 hours, albuterol as needed, oxygen by nasal cannula as above. #8 hypertension: Blood pressure is on the lower side this time, she is asthmatic. Plan for IV fluids, hold losartan, continue metoprolol. #9 hyperlipidemia: Continue statins. #10 DVT prophylaxis: Subcu Lovenox. This note was generated with [employer] dictation software. It may contain incorrect words, spelling, and punctuation that were not noted in checking the note before signing. Code Visit Inpatient E&M: 05207 In Hosp L3
[2018-04-19 12:40] LABS: Ferritin 30 ng/mL (8-252); Iron 17 ug/dL (50-170); Iron Binding Capacity,Total 382 ug/dL (250-450); PERCENT IRON SATURATION 4.5 % (15.0-55.0)
[2018-04-19 12:46] LABS: BNP,B-Type NATRIURETIC PEPTIDE 100.7 pg/mL (0-100)
--- NOTE | 2018-04-19 13:06 | ED.RN ---
error to vitals on 1100 sepsis screen. unable to correct. this rn and charge nurse attempted to correct. 1100 regular vitals documentation is correct.
[2018-04-19 13:10] LABS: International Normalized Ratio 1.1; Prothrombin Time (Protime)PT. 14.4 SECONDS (11.7-14.9)
[2018-04-19] MEDS: Atorvastatin Calcium 40 MG Tablet PO (21:25)
[2018-04-19] MEDS: guaiFENesin 1,200 MG Tablet 1200 MG PO (21:25)
[2018-04-19] MEDS: Montelukast 10 MG Tablet PO (21:25)
[2018-04-19] MEDS: Clopidogrel Bisulfate 75 MG Tablet PO (21:25)
[2018-04-20] VITALS (30 sets, daily range): BP systolic 68–117; BP diastolic 41–82; PULSE 76–94; RESP 18–24; TEMP 36.9–37.8; O2SAT 92–98
[2018-04-20] MEDS: Acetaminophen 325 MG Tablet 650 MG PO (01:16)
[2018-04-20] MEDS: Albuterol 2.5 MG/3 ML VIAL.NEB. INHALATION (03:30)
[2018-04-20 05:43] LABS: Absolute Lymphocyte Count 1.61 X10^3/ul (0.83-4.51); Absolute Neutrophil Count 8.2 X10^3/uL (2.0-7.7); Basophil# 0.02 X10^3/uL; Basophil% 0.2 % (0-1); Eosinophil# 0.21 X10^3/uL; Eosinophils% 1.9 % (0-5); Hematocrit 29.7 % (37-47); Hemoglobin 8.6 g/dl (12.0-15.0); Lymphocyte # 1.61 X10^3/ul (4.0); Lymphocyte % 14.7 % (19-41); Mean Corpuscular Hgb 24.8 pg (27.0-32.0); Mean Corpuscular Volume 85.6 fL (81-99); Mean Platelet Vol. 9.3 fl (6.2-12.0); Monocyte% 8.2 % (0-10); Neutrophil # 8.16 X10^3/uL (2.7-7.7); Neutrophil % 74.3 % (47-70); POSITIVE COUNT NO; POSITIVE DIFFERENTIAL NO; POSITIVE MORPHOLOGY NO; Platelet Count 275 K/mm3 (150-450); RBC Distribution Width CV 17.9 % (11.6-14.6); RBC Distribution Width SD 54.2 fl (35.1-43.9); Red Blood Count 3.47 M/mm3 (4.2-5.4)
--- NOTE | 2018-04-20 05:55 | EKG12_ITS ---
Test Reason : AM Blood Pressure : / mmHG Vent. Rate : 079 BPM Atrial Rate : 079 BPM P-R Int : 164 ms QRS Dur : 084 ms QT Int : 374 ms P-R-T Axes : 056 063 075 degrees QTc Int : 428 ms Normal sinus rhythm Nonspecific T wave abnormality Abnormal ECG When compared with ECG of 19-APR-2018 07:12, MANUAL COMPARISON REQUIRED, DATA IS UNCONFIRMED Confirmed by SANDI LEI, WILBERTO ([id number]), medical transcription editor DANIA FULLER ([id number]) on 04/27/2018 11:53:30 AM Referred By: Confirmed By:WILBERTO JUNIOR MD
[2018-04-20 06:00] LABS: Anion Gap 9 (5-15); BUN 16 mg/dL (7-18); BUN/Creat Ratio 21.9 RATIO (10-20); Chloride 109 mmol/L (98-107); Creatinine, Serum 0.73 mg/dL (0.55-1.02); EST Glomerular Filtration Rate 82 mL/min (>60); Est Glom Filt Rate - Afr Amer 99 mL/min (>60); Estimated Creatinine Clearance 37.85 ml/min; Glucose 88 mg/dL (74-106); Potassium 4.6 mmol/L (3.5-5.1); Sodium Level 142 mmol/L (136-145)
--- NOTE | 2018-04-20 07:17 | ECHOCS_ITS ---
Reason For Study: SOB Procedure This was a 2D Doppler, Color Flow transthoracic echocardiogram. Exam performed portable in patient room. Left Ventricle Normal size and thickness. The estimated ejection fraction is 65 %. Stage 1 diastolic dysfunction. No regional wall motion abnormalities noted. Right Ventricle Normal size and thickness. Normal systolic function. Mitral Valve Mild diffuse mitral valve thickening. Moderate mitral annular calcification extending into the posterior leaflet. Tricuspid Valve Normal tricuspid valve. Unable to estimate RV systolic pressure due to inadequate jet, pulmonary artery pressure probably normal. Aortic Valve Trisinus/trileaflet aortic valve. Mild diffuse aortic valve thickening. There is no aortic stenosis. Pulmonic Valve The pulmonic valve is not well visualized. Great Vessels Normal aortic root. Normal arch. The inferior vena cava is dilated. Inferior vena cava collapse with sniff. Pericardium/Pleural No pericardial effusion. Small left pleural effusion. Medication Diluted definity 3ml given slow IV push to enhance endocardial definition. MMode/2D Measurements & Calculations LVIDd: 4.7 cm IVSd: 1.2 cm Ao root diam: 3.2 cm LVIDs: 3.0 cm LVPWd: 1.2 cm FS: 34.7 % LA dimension(2D): 4.0 cm Doppler Measurements & Calculations MV E max vicente: 90.9 cm/sec Lat Peak E' Vicente: 9.2 cm/sec Med Peak E' Vicente: 7.4 cm/sec MV A max vicente: 89.6 cm/sec E/E' lat: 9.8 E/E' med: 12.2 MV E/A: 1.0 Ao V2 max: 167.6 cm/sec LV V1 max: 115.4 cm/sec PA V2 max: 119.2 cm/sec Ao max P.2 mmHg LV V1 max P.4 mmHg Interpretation Summary The estimated ejection fraction is 65 %. Stage 1 diastolic dysfunction. Unable to estimate RV systolic pressure due to inadequate jet, pulmonary artery pressure probably normal. Possible small left pleural effusion. Compared to echo report date12/16/2017, no appreciable changes noted, except for possible new left sided pleural effusion. The study was technically difficult. Contrast injection was performed. Ordering Physician: Teresita Hanley Referring Physician: ROSALINA Raya M.D. Performed By: Milla Rodriguez RDCS
[2018-04-20] MEDS: Ipratropium/Albuterol Sulfate 3 ML AMPUL.NEB INHALATION ×3 (07:24→18:40)
[2018-04-20] MEDS: Clopidogrel Bisulfate 75 MG Tablet PO ×2 (08:12→22:00)
[2018-04-20] MEDS: Citalopram 20 MG Tablet PO (08:12)
[2018-04-20] MEDS: Enoxaparin 40 MG/0.4 ML Syringe SC (08:12)
[2018-04-20] MEDS: Pantoprazole Sodium 40 MG Tablet PO (08:12)
[2018-04-20] MEDS: guaiFENesin 1,200 MG Tablet 1200 MG PO ×2 (08:12→22:00)
[2018-04-20] MEDS: Tolterodine Tartrate 4 MG CAP.SA PO (08:12)
--- NOTE | 2018-04-20 08:14 | PCM.PROGNOTE ---
Subjective: Chief complaint: Follow-up after admission for bilateral lower lobe community acquired pneumonia, sepsis, pleuritic chest pain, anemia and hypotension. Patient seen and examined. No acute events overnight. She mentioned that her left side pleuritic chest pain is getting better as well as shortness of breath. She has been ambulating without dizziness or lightheadedness. Denied syncope or presyncope. She is afebrile, no tachycardia, blood pressure is low, has been in the 80s systolic, pulse ox is 98% on 2 L. - Physical Exam General: Alert, Oriented x3, Cooperative, - - Minimally short of breath. HEENT: Atraumatic, PERRLA, EOMI, Normocephalic Oral: Moist Mucosa, No Gingival or Mucosal Lesions/ Ulcerations Neck: Supple, No JVD, Negative Carotid Bruits, Trachea Midline, Thyroid Normal Size and Texture Lungs: No wheeze, Diminished, Rales, Rhonchi, Short of Breath, - - Decreased breath sounds at the bases, basal crackles, bilateral rhonchi. Cardiovascular: Regular rate, Regular Rhythm, Normal S1, Normal S2, PMI Normal Abdomen: Bowel Sounds Present, Soft, Non Tender, Non-Distended, No Hepato-splenomegaly, Obese Extremities: No clubbing, No cyanosis, Edema - Trace edema. Skin: No rashes, No breakdown Lymphatic: No Cervical, Supraclavicular, or Inguinal Adenopathy Neurological: Cranial nerves II-XII grossly intact, Neuro grossly intact Psych/Mental Status: Normal Affect, Appropriate, Alert and oriented to time, place, person, mood and affect Vital Signs Temp Pulse Resp BP Pulse Ox 99.1 F 84 24 H 81/68 L 94 04/20/18 07:00 04/20/18 07:37 04/20/18 07:00 04/20/18 07:00 04/20/18 07:00 Oxygen Flow Rate (L/min) 3 Oxygen Delivery Method Nasal Cannula Weight: 274 lb 0.553 oz Body Mass Index (BMI) 50.1 Finger Stick Blood Glucose 88 Intake and Output for Last 24 Hours 04/18/18 04/19/18 04/20/18 23:59 23:59 23:59 Intake Total 1970 / 1969 845 / 845 Output Total 1000 / 1000 Balance 970 / 970 845 / 845 Microbiology Past 72 Hours 04/19/18 13:23 Respiratory Panel (PCR) - Final Mucosa - Nose Laboratory Tests Past 24 Hrs 04/19/18 04/19/18 04/19/18 07:40 07:46 07:46 WBC RBC Hgb Hct MCV MCH MCHC RDW RDW Differential Plt Count MPV Immature Gran % (Auto) Neut % (Auto) Lymph % (Auto) [place] % (Auto) Eos % (Auto) Baso % (Auto) Absolute Neuts (auto) Absolute Lymphs (auto) Total Counted PT INR Sodium Potassium Chloride Carbon Dioxide Anion Gap BUN Creatinine Estim Creat Clear Calc Est GFR (MDRD) Af Amer Est GFR (MDRD) Non-Af BUN/Creatinine Ratio Glucose Lactic Acid 0.8 Calcium Iron 17 L TIBC 382 Iron Saturation 4.5 L Ferritin 30 Troponin I B-Natriuretic Peptide 100.7 H 04/19/18 04/19/18 04/19/18 12:35 12:35 15:20 WBC RBC Hgb Hct MCV MCH MCHC RDW RDW Differential Plt Count MPV Immature Gran % (Auto) Neut % (Auto) Lymph % (Auto) [place] % (Auto) Eos % (Auto) Baso % (Auto) Absolute Neuts (auto) Absolute Lymphs (auto) Total Counted PT 14.4 INR 1.1 Sodium Potassium Chloride Carbon Dioxide Anion Gap BUN Creatinine Estim Creat Clear Calc Est GFR (MDRD) Af Amer Est GFR (MDRD) Non-Af BUN/Creatinine Ratio Glucose Lactic Acid Calcium Iron TIBC Iron Saturation Ferritin Troponin I < 0.015 < 0.015 B-Natriuretic Peptide 04/19/18 04/20/18 04/20/18 18:32 05:15 05:15 WBC 11.0 RBC 3.47 L Hgb 8.6 L Hct 29.7 L MCV 85.6 MCH 24.8 L MCHC 29.0 L RDW 17.9 H RDW Differential 54.2 H Plt Count 275 MPV 9.3 Immature Gran % (Auto) 0.700 Neut % (Auto) 74.3 H Lymph % (Auto) 14.7 L [place] % (Auto) 8.2 Eos % (Auto) 1.9 Baso % (Auto) 0.2 Absolute Neuts (auto) 8.2 H Absolute Lymphs (auto) 1.61 Total Counted Not Reportable PT INR Sodium 142 Potassium 4.6 Chloride 109 H Carbon Dioxide 24.0 Anion Gap 9 BUN 16 Creatinine 0.73 Estim Creat Clear Calc 37.85 Est GFR (MDRD) Af Amer 99 Est GFR (MDRD) Non-Af 82 BUN/Creatinine Ratio 21.9 H Glucose 88 Lactic Acid Calcium 8.0 L Iron TIBC Iron Saturation Ferritin Troponin I < 0.015 B-Natriuretic Peptide Medical Necessity - Tobacco Use Smoking Status: Current every day smoker Tobacco Use: Cigarettes Assessment/Plan This is a 77 years old female patient presented to the emergency room because of left lateral pleuritic chest pain associated with shortness of breath and productive cough as well as chills and subjective fever, found to have bilateral lower lobe consolidation worse on the left side on CTA chest and she is being admitted for bilateral lower lobe community acquired pneumonia, became hypotensive in the ER without symptoms and with normal lactic acid. #1 bilateral lower lobe community-acquired pneumonia/sepsis: She is on IV Levaquin. She has been afebrile, white blood cell count is back to normal. Her blood pressure still low but she is completely asymptomatic. Lactic acid was normal. Respiratory panel for viruses were negative. Blood and sputum cultures are pending. Plan to continue same treatment. #2 left lateral pleuritic chest pain: Repeat EKG today revealed resolution of the ST segment depression in V4 V5 and V6. Troponin is negative x3. At this time, I doubt ACS. She had an echocardiogram done on December, that showed normal ejection fraction plan: 2D echocardiogram because of persistent hypotension. #3 hypotension: Asymptomatic, blood pressure has been in the 80s systolic, no tachycardia. EKG showed normal sinus rhythm, ST segment depression in lateral chest leads resolved, no acute changes. This probably multifactorial secondary to medications and anemia. Her antihypertensive medications are held except metoprolol. Plan to DC IV fluids, 2D echocardiogram. #4 iron deficiency anemia: It is acute on chronic. Baseline hemoglobin around 10-12 g/dL. Admission hemoglobin was 9, came down to 8.6 g/dL today. Patient reported intermittent dark stools, no hematochezia. She stated that she had a history of bariatric surgery 15 years ago that complicated with postoperative gastric bleeding according to the patient. Her iron is very low. Stool for occult blood ordered. Plan: General surgery consult for upper EGD and colonoscopy, will give 1 dose of IV iron sucrose, repeat CBC tomorrow morning. #5 CAD status post PCI/stents: Repeat EKG reviewed as above, changes resolved. Troponin is negative x3. Continue Plavix twice daily, statins, metoprolol, hold losartan. #6 type 2 diabetes mellitus: Blood sugar has been stable, continue ADA diet, Accu-Cheks, insulin sliding scale, she has not been on any treatment at home. #7 COPD/chronic respiratory failure: On home oxygen at 3 L as needed. Continue DuoNeb every 6 hours, albuterol as needed, oxygen by nasal cannula as above. #8 hypertension: Blood pressure remained on the lower side, she is asymptomatic. She is only on metoprolol. Plan as above for 2D echocardiogram, upper endoscopy and colonoscopy for anemia. #9 hyperlipidemia: Continue statins. #10 DVT prophylaxis: Subcu Lovenox. This note was generated with [email or web address] dictation software. It may contain incorrect words, spelling, and punctuation that were not noted in checking the note before signing. Code Visit Inpatient E&M: 61400 Subs Hosp L3
--- NOTE | 2018-04-20 08:17 | PN_ITS ---
Subjective: Chief complaint: Follow-up after admission for bilateral lower lobe community acquired pneumonia, sepsis, pleuritic chest pain, anemia and hypotension. Patient seen and examined. No acute events overnight. She mentioned that her left side pleuritic chest pain is getting better as well as shortness of breath. She has been ambulating without dizziness or lightheadedness. Denied syncope or presyncope. She is afebrile, no tachycardia, blood pressure is low, has been in the 80s systolic, pulse ox is 98% on 2 L. - Physical Exam General: Alert, Oriented x3, Cooperative, - - Minimally short of breath. HEENT: Atraumatic, PERRLA, EOMI, Normocephalic Oral: Moist Mucosa, No Gingival or Mucosal Lesions/ Ulcerations Neck: Supple, No JVD, Negative Carotid Bruits, Trachea Midline, Thyroid Normal Size and Texture Lungs: No wheeze, Diminished, Rales, Rhonchi, Short of Breath, - - Decreased breath sounds at the bases, basal crackles, bilateral rhonchi. Cardiovascular: Regular rate, Regular Rhythm, Normal S1, Normal S2, PMI Normal Abdomen: Bowel Sounds Present, Soft, Non Tender, Non-Distended, No Hepato- splenomegaly, Obese Extremities: No clubbing, No cyanosis, Edema - Trace edema. Skin: No rashes, No breakdown Lymphatic: No Cervical, Supraclavicular, or Inguinal Adenopathy Neurological: Cranial nerves II-XII grossly intact, Neuro grossly intact Psych/Mental Status: Normal Affect, Appropriate, Alert and oriented to time, [place] ce, person, mood and affect Vital Signs Temp Pulse Resp BP Pulse Ox 99.1 F 84 24 H 81/68 L 94 04/20/18 07:00 04/20/18 07:37 04/20/18 07:00 04/20/18 07:00 04/20/18 07:00 Oxygen Flow Rate (L/min) 3 Oxygen Delivery Method Nasal Cannula Weight: 274 lb 0.553 oz Body Mass Index (BMI) 50.1 Finger Stick Blood Glucose 88 Intake and Output for Last 24 Hours 04/18/18 04/19/18 04/20/18 23:59 23:59 23:59 Intake Total 1969 / 1969 845 / 845 Output Total 1000 / 1000 Balance 970 / 970 845 / 845 Microbiology Past 72 Hours 04/19/18 13:23 Respiratory Panel (PCR) - Final Mucosa - Nose Laboratory Tests Past 24 Hrs 04/19/18 04/19/18 04/19/18 07:40 07:46 07:46 WBC RBC Hgb Hct MCV MCH MCHC RDW RDW Differential Plt Count MPV Immature Gran % (Auto) Neut % (Auto) Lymph % (Auto) [place] % (Auto) Eos % (Auto) Baso % (Auto) Absolute Neuts (auto) Absolute Lymphs (auto) Total Counted PT INR Sodium Potassium Chloride Carbon Dioxide Anion Gap BUN Creatinine Estim Creat Clear Calc Est GFR (MDRD) Af Amer Est GFR (MDRD) Non-Af BUN/Creatinine Ratio Glucose Lactic Acid 0.8 Calcium Iron 17 L TIBC 382 Iron Saturation 4.5 L Ferritin 30 Troponin I B-Natriuretic Peptide 100.7 H 04/19/18 04/19/18 04/19/18 12:35 12:35 15:20 WBC RBC Hgb Hct MCV MCH MCHC RDW RDW Differential Plt Count MPV Immature Gran % (Auto) Neut % (Auto) Lymph % (Auto) [place] % (Auto) Eos % (Auto) Baso % (Auto) Absolute Neuts (auto) Absolute Lymphs (auto) Total Counted PT 14.4 INR 1.1 Sodium Potassium Chloride Carbon Dioxide Anion Gap BUN Creatinine Estim Creat Clear Calc Est GFR (MDRD) Af Amer Est GFR (MDRD) Non-Af BUN/Creatinine Ratio Glucose Lactic Acid Calcium Iron TIBC Iron Saturation Ferritin Troponin I < 0.015 < 0.015 B-Natriuretic Peptide 04/19/18 04/20/18 04/20/18 18:32 05:15 05:15 WBC 11.0 RBC 3.47 L Hgb 8.6 L Hct 29.7 L MCV 85.6 MCH 24.8 L MCHC 29.0 L RDW 17.9 H RDW Differential 54.2 H Plt Count 275 MPV 9.3 Immature Gran % (Auto) 0.700 Neut % (Auto) 74.3 H Lymph % (Auto) 14.7 L [place] % (Auto) 8.2 Eos % (Auto) 1.9 Baso % (Auto) 0.2 Absolute Neuts (auto) 8.2 H Absolute Lymphs (auto) 1.61 Total Counted Not Reportable PT INR Sodium 142 Potassium 4.6 Chloride 109 H Carbon Dioxide 24.0 Anion Gap 9 BUN 16 Creatinine 0.73 Estim Creat Clear Calc 37.85 Est GFR (MDRD) Af Amer 99 Est GFR (MDRD) Non-Af 82 BUN/Creatinine Ratio 21.9 H Glucose 88 Lactic Acid Calcium 8.0 L Iron TIBC Iron Saturation Ferritin Troponin I < 0.015 B-Natriuretic Peptide Medical Necessity - Tobacco Use Smoking Status: Current every day smoker Tobacco Use: Cigarettes Assessment/Plan This is a 77 years old female patient presented to the emergency room because of left lateral pleuritic chest pain associated with shortness of breath and productive cough as well as chills and subjective fever, found to have bilateral lower lobe consolidation worse on the left side on CTA chest and she is being admitted for bilateral lower lobe community acquired pneumonia, became hypotensive in the ER without symptoms and with normal lactic acid. #1 bilateral lower lobe community-acquired pneumonia/sepsis: She is on IV Levaquin. She has been afebrile, white blood cell count is back to normal. Her blood pressure still low but she is completely asymptomatic. Lactic acid was normal. Respiratory panel for viruses were negative. Blood and sputum cultures are pending. Plan to continue same treatment. #2 left lateral pleuritic chest pain: Repeat EKG today revealed resolution of the ST segment depression in V4 V5 and V6. Troponin is negative x3. At this time, I doubt ACS. She had an echocardiogram done on December, that showed normal ejection fraction plan: 2D echocardiogram because of persistent hypo tension. #3 hypotension: Asymptomatic, blood pressure has been in the 80s systolic, no tachycardia. EKG showed normal sinus rhythm, ST segment depression in lateral chest leads resolved, no acute changes. This probably multifactorial secondary to medications and anemia. Her antihypertensive medications are held except metoprolol. Plan to DC IV fluids, 2D echocardiogram. #4 iron deficiency anemia: It is acute on chronic. Baseline hemoglobin around 10-12 g/dL. Admission hemoglobin was 9, came down to 8.6 g/dL today. Patient reported intermittent dark stools, no hematochezia. She stated that she had a history of bariatric surgery 15 years ago that complicated with postoperative gastric bleeding according to the patient. Her iron is very low. Stool for occult blood ordered. Plan: General surgery consult for upper EGD and colonoscopy, will give 1 dose of IV iron sucrose, repeat CBC tomorrow morning. #5 CAD status post PCI/stents: Repeat EKG reviewed as above, changes resolved. Troponin is negative x3. Continue Plavix twice daily, statins, metoprolol, hold losartan. #6 type 2 diabetes mellitus: Blood sugar has been stable, continue ADA diet, Accu-Cheks, insulin sliding scale, she has not been on any treatment at home. #7 COPD/chronic respiratory failure: On home oxygen at 3 L as needed. Continue DuoNeb every 6 hours, albuterol as needed, oxygen by nasal cannula as above. #8 hypertension: Blood pressure remained on the lower side, she is asymptomatic. She is only on metoprolol. Plan as above for 2D echocardiogram, upper endoscopy and colonoscopy for anemia. #9 hyperlipidemia: Continue statins. #10 DVT prophylaxis: Subcu Lovenox. This note was generated with [employer] dictation software. It may contain incorrect words, spelling, and punctuation that were not noted in checking the note before signing. Code Visit Inpatient E&M: 34335 Subs Hosp L3
[2018-04-20 10:21] LABS: Thyroid Stim Hormone (TSH) 0.57 uIU/mL (0.358-3.74)
--- NOTE | 2018-04-20 14:47 | CASEMGMT ---
SHANELLE LAGUNA assessment: Face to Face with patient for initial transition planning/care coordination assessment. SHANELLE LAGUNA introduced self and role at [facility], pt voices understanding and consents to assessment at this time. Pt is sitting up in bed in no distress at this time. Pt is A/Ox4 at this time and answers all questions appropriately at this time. Family member at bedside during assessment. Care providers, pharmacy, and demographics verified at this time. PCP: Dorota Specialists: sabino Roblero Pharmacy: [facility] Insurance: [employer] Prescription Benefit: [employer] Living Will/HPOA: Pt states has LW/HPOA but is aware that they are not on file at [facility] at this time. Pt states , Geovanny Mathias, is HPOA. LNOK: Geovanny Mathias, ; Missy Goss, daughter Living Arrangements: Pt states lives with , daughter and son-in-law in efficiency apartment and states no stairs at home. Pt states no concerns at home at this time. Pt states is independent with ADL's. Transportation: Pt states drives and states no transportation concerns at this time. DME/HHC: Pt states has the following DME at home: grab bars, walker, shower chair, nebulizer, and home oxygen at 3 liters prn thru [employer]. Pt states no hx of HHC or has been to [facility] in the past. Pt states that her walker at home is broken and she is interested in script for new walker at this time. This RN CM will have physician sign script in the am. Pt is also interested in information on medical alert button and info provided at this time. Pt states no concerns with going home at time of discharge. Pt states is retired. Pt states smokes 7 cigarettes daily and does not drink ETOH. Pt states no further concerns/needs at this time. CM to follow PT/OT evals and for any further discharge planning/needs. Advised pt to ask for CM if any further questions/concerns/needs arise, voices understanding. Plan: [place] SHANELLE LAGUNA
[2018-04-20] MEDS: Electrolyte Solution/Peg's 4000 ML PO (15:15)
[2018-04-20] MEDS: Ferrous Gluconate 324 MG Tablet PO (15:19)
[2018-04-20 15:39] LABS: Color, Urine Yellow (Yellow); Glucose, Dipstick Normal (Normal); Ketone-Dipstick Negative (Negative); Leukocyte Esterase-Dipstick Negative /ul (Negative); Nitrite-Dipstick Negative (Negative); Occult Blood-Urine 25 /ul (Negative); Protein-Dipstick Negative (Negative); Urine Bilirubin Dipstick Negative (Negative); Urine Clarity Clear (Clear); Urine Urobilinogen Normal (Normal)
[2018-04-20] MEDS: Pramipexole Di-HCl 1 MG Tablet PO (15:44)
--- NOTE | 2018-04-20 18:57 | PCM.CONS.GEN ---
Reason for Consult Date of Consultation: 04/20/18 Reason for Consultation: iron deficiency anemia History of Present Illness: The patient is a 77 year old F presented to [facility] emergency department because of shortness of breath, cough and left lateral pleuritic chest pain. The patient was found to have bilateral lower lobe community-acquired pneumonia. She was admitted to the hospital on April 20. She was started on antibiotics and has been improving. laboratory studies were obtained which demonstrated hemoglobin of 8.6, down from her relative [place] normal hemoglobin level of around 11.iron studies were obtained which demonstrated an iron level of 17with a decreased iron saturation and normal total iron binding capacity. I was contacted for endoscopy due to iron deficiency anemia. The patient is no longer menstruating. She notes no other sources of blood loss. She noted 20 years previously she underwent gastric bypass surgery which was complicated by significant bleed requiring reoperation 2 weeks after that surgical procedure. In the past she has been on iron but that was stopped. She occasionally notes dark stools. She denies abdominal pain. She denies hematochezia. She denies hematemesis or coffee-ground emesis. patient has a complex past medical history significant for chronic hypoxic respiratory failure, COPD recurring pneumonia, history of coronary artery disease status post stent placement, hypertension, diabetes, obstructive sleep apnea, and continued tobacco use. She is undergone multiple drug-eluting stent placements, she has had subclavian artery stent placement, she's had right previous carotid endarterectomy. her outpatient medications include Plavix. Past Medical History Past Medical History (Chronic Problems): Chronic Problems (Last Updated 04/19/18 @ 12:24 by Teresita Hanley MD) Hyperlipidemia (Chronic) VBI (vertebrobasilar insufficiency) (Chronic) Stage 2 moderate COPD by GOLD classification (Chronic) Chronic hypoxemic respiratory failure (Chronic) History of right-sided carotid endarterectomy (Chronic ~07/2014) left subclavian artery stent (Chronic ~03/2017) Stenosis of left subclavian artery (Chronic ~03/2017) stent the left subclavian with a 7 x 39 [place]am History of coronary artery stent placement (Chronic 01/20/18) ZRB-WAU-Wxqbkc LAD (2.25 X 24 Promus Synergy) and MUSHTAQ to 2 tandem lesions Prox LAD (3.5 X 24 Promus Synergy) 01/20/2018 BBX-ADU-Joml RCA 03/22/13 AWN-LIN-Mxoggd RCA 2000 and 2002 Atherosclerosis of coronary artery of [place] heart without angina pectoris (Chronic) IVM-HUL-Pzlqgy LAD and MSUHTAQ to 2 tandem lesions Prox LAD 01/20/2018 AFN-NBA-Xajp RCA 03/22/13 YFV-KMH-Nldeqz RCA 2000 and 2002 Asthma (Chronic) HTN (hypertension) (Chronic) Tobacco abuse (Chronic) Obesities, morbid (Chronic) History of COPD (Chronic) History of diabetes mellitus, type II (Chronic) History of gastroesophageal reflux (GERD) (Chronic) Obstructive sleep apnea (Chronic) Medical History: Medical History (Last Updated 04/19/18 @ 12:24 by Teresita Hanley MD) Hyperlipidemia (Chronic) E78.5 Stenosis of left subclavian artery (Chronic) Onset Date: ~03/2017 I77.1 stent the left subclavian with a 7 x 39 Poonam Atherosclerosis of coronary artery of [place] heart without angina pectoris (Chronic) I25.10 MZR-FIC-Ozbuly LAD and MUSHTAQ to 2 tandem lesions Prox LAD 01/20/2018 UNB-TXF-Jxtj RCA 03/22/13 TYX-JEQ-Fihdmh RCA 2000 and 2002 Asthma (Chronic) J45.909 HTN (hypertension) (Chronic) I10 Tobacco abuse (Chronic) Z72.0 History of COPD (Chronic) Z87.09 History of diabetes mellitus, type II (Chronic) Z86.39 History of gastroesophageal reflux (GERD) (Chronic) Z87.19 Obstructive sleep apnea (Chronic) G47.33 Carotid artery stenosis I65.29 Allergies aspirin [ASA] Allergy (Severe, Verified 02/06/18 11:38) Hives bupropion [From Wellbutrin] Allergy (Verified 02/06/18 11:38) Unknown codeine Allergy (Verified 02/06/18 11:38) Unknown meperidine HCl [From Demerol] Allergy (Verified 02/06/18 11:38) Hives naproxen sodium [From Anaprox] Allergy (Verified 02/06/18 11:38) Unknown Penicillins [PCN] Allergy (Verified 02/06/18 11:38) Unknown propoxyphene HCl [From Darvon] Allergy (Verified 02/06/18 11:38) Hives Sulfa (Sulfonamide Antibiotics) Allergy (Verified 02/06/18 11:38) Unknown gabapentin Adverse Reaction (Intermediate, Verified 02/14/18 17:06) Mental status change, foggy headed NSAIDS (Non-Steroidal Anti-Inflamma Adverse Reaction (Verified 02/06/18 11:38) Other Home Medications: Ambulatory Orders Medication Instructions Recorded Budesonide/Formoterol 80-4.5 2 puff INHALATION BID 02/28/13 [Symbicort 80-4.5 Mcg Inhaler] Citalopram [Celexa] 20 mg PO DAILY 02/28/13 Fluticasone 0.05% [Flonase Nasal 2 spray NASAL DAILY PRN 02/28/13 [place]] Montelukast [Singulair] 10 mg PO QHS 07/08/14 Albuterol IH (ProAir) [Proair Hfa] 2 puff INHALATION Q6H PRN PRN 07/15/14 Atorvastatin Calcium [Lipitor] 40 mg PO QHS #30 tab 10/03/16 Ferrous Gluconate 325 mg PO BIDCM 11/18/17 Tolterodine Tartrate [Detrol LA] 4 mg PO DAILY 11/18/17 furosemide 20 mg tablet 20 mg PO DAILY #30 tab 12/12/17 nitroglycerin 0.4 mg sublingual 0.4 mg SUBLINGUAL Q5M PRN #25 tab 12/12/17 tablet Cholecalciferol (Vitamin D3) 1,000 unit PO DAILY 12/22/17 [Vitamin D3] Hydrocodone/Acetaminophen 1 tab PO BID PRN PRN 12/22/17 [Hydrocodone-Acetamin 5-325 mg] clopidogrel 75 mg tablet 75 mg PO BID #60 tab 12/23/17 metoprolol tartrate 25 mg tablet 12.5 mg PO BID #30 tab 12/23/17 omeprazole 40 mg capsule,delayed 40 mg PO DAILY 02/14/18 release pramipexole 1 mg tablet 1 mg PO TID PRN tab 02/14/18 losartan 25 mg tablet 25 mg PO DAILY 02/16/18 Surgical History: Surgical History (Last Updated 04/19/18 @ 12:24 by Teresita Hanley MD) History of right-sided carotid endarterectomy (Chronic) Onset Date: ~07/2014 Z98.890 left subclavian artery stent (Chronic) Onset Date: ~03/2017 History of coronary artery stent placement (Chronic) Onset Date: 01/20/18 Z95.5 JJX-LGV-Egboqk LAD (2.25 X 24 Promus Synergy) and MUSHTAQ to 2 tandem lesions Prox LAD (3.5 X 24 Promus Synergy) 01/20/2018 NED-NOK-Tlvy RCA 03/22/13 EPG-DYU-Wgzjwq RCA 2000 and 2002 History of right knee joint replacement Z96.651 History of section Z98.891 History of cholecystectomy Z98.890, Z90.49 H/O bariatric surgery (Inactive) Z98.84 Surgical History: angioplasty, - - 3 heart stents, bariatric surgery and , carotid endarterectemy Psychiatric History: No pertinent psych hx 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: No pertinent UTILITY ACCOUNTS DIRECTOR history Smoking Status: Current every day smoker Tobacco Use: Cigarettes Alcohol: None Drugs: None - *Family History Maternal Family History: Family History (Last Reviewed 02/16/18 @ 15:21 by Fang Gomez) Mother CVA (cerebral vascular accident) Father Asthma Hypertension High blood cholesterol level Arthritis History Items: Stroke Review of Systems Constitutional: Reports: Malaise, Fatigue Cardiovascular: Denies: Chest Pain, Claudication, Chest Pressure Respiratory: Reports: Cough, Shortness of Breath, Shortness of breath upon exertion, Wheezing Gastrointestinal: Denies: Abdominal Pain, Constipation, Diarrhea, Dyspepsia, Hematemesis, Hematochezia, Nausea, Melena, Vomiting - Physical Exam General: Alert, Oriented x3, No apparent distress Lungs: Diminished, Rales Cardiovascular: Regular rate, Regular Rhythm, No murmurs, No rub noted, No Gallop Abdomen: Bowel Sounds Present, Soft, Non Tender Vital Signs Temp Pulse Resp BP Pulse Ox 98.7 F 93 18 117/66 95 04/20/18 16:00 04/20/18 16:00 04/20/18 16:00 04/20/18 16:00 04/20/18 16:00 Oxygen Flow Rate (L/min) 2 Oxygen Delivery Method Nasal Cannula Weight: 124.3 kg Body Mass Index (BMI) 50.1 Finger Stick Blood Glucose 88 Intake and Output for Last 24 Hours 04/18/18 04/19/18 04/20/18 23:59 23:59 23:59 Intake Total 1970 / 1970 1805 / 1805 Output Total 1000 / 1000 500 / 500 Balance 970 / 970 1305 / 1305 Microbiology Past 72 Hours 02/06/19 19:55 Gram Stain - Final Sputum, Expectorated/Coughed 04/19/18 13:23 Respiratory Panel (PCR) - Final Mucosa - Nose Laboratory Tests Past 24 Hrs 04/19/18 04/20/18 04/20/18 18:32 05:15 05:15 WBC 11.0 RBC 3.47 L Hgb 8.6 L Hct 29.7 L MCV 85.6 MCH 24.8 L MCHC 29.0 L RDW 17.9 H RDW Differential 54.2 H Plt Count 275 MPV 9.3 Immature Gran % (Auto) 0.700 Neut % (Auto) 74.3 H Lymph % (Auto) 14.7 L [place] % (Auto) 8.2 Eos % (Auto) 1.9 Baso % (Auto) 0.2 Absolute Neuts (auto) 8.2 H Absolute Lymphs (auto) 1.61 Total Counted Not Reportable Sodium 142 Potassium 4.6 Chloride 109 H Carbon Dioxide 24.0 Anion Gap 9 BUN 16 Creatinine 0.73 Estim Creat Clear Calc 37.85 Est GFR (MDRD) Af Amer 99 Est GFR (MDRD) Non-Af 82 BUN/Creatinine Ratio 21.9 H Glucose 88 Calcium 8.0 L Troponin I < 0.015 TSH Urine Color Urine Clarity Urine pH Ur Specific [place] Urine Protein Urine Glucose (UA) Urine Ketones Urine Occult Blood Urine Nitrite Urine Bilirubin Urine Urobilinogen Ur Leukocyte Esterase 04/20/18 04/20/18 05:15 15:25 WBC RBC Hgb Hct MCV MCH MCHC RDW RDW Differential Plt Count MPV Immature Gran % (Auto) Neut % (Auto) Lymph % (Auto) [place] % (Auto) Eos % (Auto) Baso % (Auto) Absolute Neuts (auto) Absolute Lymphs (auto) Total Counted Sodium Potassium Chloride Carbon Dioxide Anion Gap BUN Creatinine Estim Creat Clear Calc Est GFR (MDRD) Af Amer Est GFR (MDRD) Non-Af BUN/Creatinine Ratio Glucose Calcium Troponin I TSH 0.57 Urine Color Yellow Urine Clarity Clear Urine pH 6.0 Ur Specific [place] 1.010 Urine Protein Negative Urine Glucose (UA) Normal Urine Ketones Negative Urine Occult Blood 25 H Urine Nitrite Negative Urine Bilirubin Negative Urine Urobilinogen Normal Ur Leukocyte Esterase Negative Assessment/Plan iron deficiency anemia I plan to perform upper and lower endoscopy. We will plan for bowel prep this evening and proceed with endoscopy under monitored anesthetic care tomorrow. The patient understands the risks, benefits, complications and possible alternatives to endoscopy and consents to these procedures. without gross bleeding, I am totally comfortable with the patient he maintained on her oral anticoagulant. She was given Protonix on admission.
--- NOTE | 2018-04-20 19:02 | CON.PCM_ITS ---
Reason for Consult Date of Consultation: 04/20/18 Reason for Consultation: iron deficiency anemia History of Present Illness: The patient is a 77 year old F presented to [facility] emergency department because of shortness of breath, cough and left lateral pleuritic ch est pain. The patient was found to have bilateral lower lobe community-acquired pneumonia. She was admitted to the hospital on April 20. She was started on antibiotics and has been improving. laboratory studies were obtained which demonstrated hemoglobin of 8.6, down from her relative [place] normal hemoglobin level of around 11.iron studies were obtained which demonstrated an iron level of 17with a decreased iron saturation and normal total iron binding capacity. I was contacted for endoscopy due to iron deficiency anemia. The patient is no longer menstruating. She notes no other sources of blood loss. She noted 20 years previously she underwent gastric bypass surgery which was complicated by significant bleed requiring reoperation 2 weeks after that surgical procedure. In the past she has been on iron but that was stopped. She occasionally notes dark stools. She denies abdominal pain. She denies hematochezia. She denies hematemesis or coffee-ground emesis. patient has a complex past medical history significant for chronic hypoxic respiratory failure, COPD recurring pneumonia, history of coronary artery disease status post stent placement, hypertension, diabetes, obstructive sleep apnea, and continued tobacco use. She is undergone multiple drug-eluting stent placements, she has had subclavian artery stent placement, she's had right previous carotid endarterectomy. her outpatient medications include Plavix. Past Medical History Past Medical History (Chronic Problems): Chronic Problems (Last Updated 04/19/18 @ 12:24 by Teresita Hanley MD) Hyperlipidemia (Chronic) VBI (vertebrobasilar insufficiency) (Chronic) Stage 2 moderate COPD by GOLD classification (Chronic) Chronic hypoxemic respiratory failure (Chronic) History of right-sided carotid endarterectomy (Chronic ~07/2014) left subclavian artery stent (Chronic ~03/2017) Stenosis of left subclavian artery (Chronic ~03/2017) stent the left subclavian with a 7 x 39 Poonam History of coronary artery stent placement (Chronic 01/20/18) ONZ-TCM-Ngzgeu LAD (2.25 X 24 Promus Synergy) and MUSHTAQ to 2 tandem lesions Prox LAD (3.5 X 24 Promus Synergy) 01/20/2018 WLX-MVK-Zrum RCA 03/22/13 GKY-EFC-Cbdpcx RCA 2000 and 2002 Atherosclerosis of coronary artery of [place] heart without angina pectoris (Chronic) OAE-FNG-Chaeqt LAD and MUSHTAQ to 2 tandem lesions Prox LAD 01/20/2018 SSW-FDP-Ydvz RCA 03/22/13 INR-LRT-Gjmxxu RCA 2000 and 2002 Asthma (Chronic) HTN (hypertension) (Chronic) Tobacco abuse (Chronic) Obesities, morbid (Chronic) History of COPD (Chronic) History of diabetes mellitus, type II (Chronic) History of gastroesophageal reflux (GERD) (Chronic) Obstructive sleep apnea (Chronic) Medical History: Medical History (Last Updated 04/19/18 @ 12:24 by Teresita Hanley MD) Hyperlipidemia (Chronic) E78.5 Stenosis of left subclavian artery (Chronic) Onset Date: ~03/2017 I77.1 stent the left subclavian with a 7 x 39 Poonam Atherosclerosis of coronary artery of [place] heart without angina pectoris (Chronic) I25.10 NJI-ZJV-Xplgqo LAD and MUSHTAQ to 2 tandem lesions Prox LAD 01/20/2018 MER-WMK-Ldpe RCA 03/22/13 ETF-DYF-Bcrkzj RCA 2000 and 2002 Asthma (Chronic) J45.909 HTN (hypertension) (Chronic) I10 Tobacco abuse (Chronic) Z72.0 History of COPD (Chronic) Z87.09 History of diabetes mellitus, type II (Chronic) Z86.39 History of gastroesophageal reflux (GERD) (Chronic) Z87.19 Obstructive sleep apnea (Chronic) G47.33 Carotid artery stenosis I65.29 Allergies aspirin [ASA] Allergy (Severe, Verified 02/06/18 11:38) Hives bupropion [From Wellbutrin] Allergy (Verified 02/06/18 11:38) Unknown codeine Allergy (Verified 02/06/18 11:38) Unknown meperidine HCl [From Demerol] Allergy (Verified 02/06/18 11:38) Hives naproxen sodium [From Anaprox] Allergy (Verified 02/06/18 11:38) Unknown Penicillins [PCN] Allergy (Verified 02/06/18 11:38) Unknown propoxyphene HCl [From Darvon] Allergy (Verified 02/06/18 11:38) Hives Sulfa (Sulfonamide Antibiotics) Allergy (Verified 02/06/18 11:38) Unknown gabapentin Adverse Reaction (Intermediate, Verified 02/14/18 17:06) Mental status change, foggy headed NSAIDS (Non-Steroidal Anti-Inflamma Adverse Reaction (Verified 02/06/18 11:38) Other Home Medications: Ambulatory Orders Medication Instructions Recorded Budesonide/Formoterol 80-4.5 2 puff INHALATION BID 02/28/13 [Symbicort 80-4.5 Mcg Inhaler] Citalopram [Celexa] 20 mg PO DAILY 02/28/13 Fluticasone 0.05% [Flonase Nasal 2 spray NASAL DAILY PRN 02/28/13 [place]] Montelukast [Singulair] 10 mg PO QHS 07/08/14 Albuterol IH (ProAir) [Proair Hfa] 2 puff INHALATION Q6H PRN PRN 07/15/14 Atorvastatin Calcium [Lipitor] 40 mg PO QHS #30 tab 10/03/16 Ferrous Gluconate 325 mg PO BIDCM 11/18/17 Tolterodine Tartrate [Detrol LA] 4 mg PO DAILY 11/18/17 furosemide 20 mg tablet 20 mg PO DAILY #30 tab 12/12/17 nitroglycerin 0.4 mg sublingual 0.4 mg SUBLINGUAL Q5M PRN #25 tab 12/12/17 tablet Cholecalciferol (Vitamin D3) 1,000 unit PO DAILY 12/22/17 [Vitamin D3] Hydrocodone/Acetaminophen 1 tab PO BID PRN PRN 12/22/17 [Hydrocodone-Acetamin 5-325 mg] clopidogrel 75 mg tablet 75 mg PO BID #60 tab 12/23/17 metoprolol tartrate 25 mg tablet 12.5 mg PO BID #30 tab 12/23/17 omeprazole 40 mg capsule,delayed 40 mg PO DAILY 02/14/18 release pramipexole 1 mg tablet 1 mg PO TID PRN tab 02/14/18 losartan 25 mg tablet 25 mg PO DAILY 02/16/18 Surgical History: Surgical History (Last Updated 04/19/18 @ 12:24 by Teresita Hanley MD) History of right-sided carotid endarterectomy (Chronic) Onset Date: ~07/2014 Z98.890 left subclavian artery stent (Chronic) Onset Date: ~03/2017 History of coronary artery stent placement (Chronic) Onset Date: 01/20/18 Z95.5 DLH-LND-Nyhljo LAD (2.25 X 24 Promus Synergy) and MUSHTAQ to 2 tandem lesions Prox LAD (3.5 X 24 Promus Synergy) 01/20/2018 SDR-PFV-Gxgs RCA 03/22/13 SMH-LAC-Mlowbb RCA 2000 and 2002 History of right knee joint replacement Z96.651 History of section Z98.891 History of cholecystectomy Z98.890, Z90.49 H/O bariatric surgery (Inactive) Z98.84 Surgical History: angioplasty, - - 3 heart stents, bariatric surgery and c- section, carotid endarterectemy Psychiatric History: No pertinent psych hx 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: No pertinent 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 COORDINATOR history Smoking Status: Current every day smoker Tobacco Use: Cigarettes Alcohol: None Drugs: None - *Family History Maternal Family History: Family History (Last Reviewed 02/16/18 @ 15:21 by Fang Gomez) Mother CVA (cerebral vascular accident) Father Asthma Hypertension High blood cholesterol level Arthritis History Items: Stroke Review of Systems Constitutional: Reports: Malaise, Fatigue Cardiovascular: Denies: Chest Pain, Claudication, Chest Pressure Respiratory: Reports: Cough, Shortness of Breath, Shortness of breath upon exertion, Wheezing Gastrointestinal: Denies: Abdominal Pain, Constipation, Diarrhea, Dyspepsia, Hematemesis, Hematochezia, Nausea, Melena, Vomiting - Physical Exam General: Alert, Oriented x3, No apparent distress Lungs: Diminished, Rales Cardiovascular: Regular rate, Regular Rhythm, No murmurs, No rub noted, No Gallop Abdomen: Bowel Sounds Present, Soft, Non Tender Vital Signs Temp Pulse Resp BP Pulse Ox 98.7 F 93 18 117/66 95 04/20/18 16:00 04/20/18 16:00 04/20/18 16:00 04/20/18 16:00 04/20/18 16:00 Oxygen Flow Rate (L/min) 2 Oxygen Delivery Method Nasal Cannula Weight: 124.3 kg Body Mass Index (BMI) 50.1 Finger Stick Blood Glucose 88 Intake and Output for Last 24 Hours 04/18/18 04/19/18 04/20/18 23:59 23:59 23:59 Intake Total 1970 / 1970 1805 / 1805 Output Total 1000 / 1000 500 / 500 Balance 970 / 970 1305 / 1305 Microbiology Past 72 Hours 04/19/18 19:55 Gram Stain - Final Sputum, Expectorated/Coughed 04/19/18 13:23 Respiratory Panel (PCR) - Final Mucosa - Nose Laboratory Tests Past 24 Hrs 04/19/18 04/20/18 04/20/18 18:32 05:15 05:15 WBC 11.0 RBC 3.47 L Hgb 8.6 L Hct 29.7 L MCV 85.6 MCH 24.8 L MCHC 29.0 L RDW 17.9 H RDW Differential 54.2 H Plt Count 275 MPV 9.3 Immature Gran % (Auto) 0.700 Neut % (Auto) 74.3 H Lymph % (Auto) 14.7 L [place] % (Auto) 8.2 Eos % (Auto) 1.9 Baso % (Auto) 0.2 Absolute Neuts (auto) 8.2 H Absolute Lymphs (auto) 1.61 Total Counted Not Reportable Sodium 142 Potassium 4.6 Chloride 109 H Carbon Dioxide 24.0 Anion Gap 9 BUN 16 Creatinine 0.73 Estim Creat Clear Calc 37.85 Est GFR (MDRD) Af Amer 99 Est GFR (MDRD) Non-Af 82 BUN/Creatinine Ratio 21.9 H Glucose 88 Calcium 8.0 L Troponin I < 0.015 TSH Urine Color Urine Clarity Urine pH Ur Specific [place] Urine Protein Urine Glucose (UA) Urine Ketones Urine Occult Blood Urine Nitrite Urine Bilirubin Urine Urobilinogen Ur Leukocyte Esterase 04/20/18 04/20/18 05:15 15:25 WBC RBC Hgb Hct MCV MCH MCHC RDW RDW Differential Plt Count MPV Immature Gran % (Auto) Neut % (Auto) Lymph % (Auto) [place] % (Auto) Eos % (Auto) Baso % (Auto) Absolute Neuts (auto) Absolute Lymphs (auto) Total Counted Sodium Potassium Chloride Carbon Dioxide Anion Gap BUN Creatinine Estim Creat Clear Calc Est GFR (MDRD) Af Amer Est GFR (MDRD) Non-Af BUN/Creatinine Ratio Glucose Calcium Troponin I TSH 0.57 Urine Color Yellow Urine Clarity Clear Urine pH 6.0 Ur Specific [place] 1.010 Urine Protein Negative Urine Glucose (UA) Normal Urine Ketones Negative Urine Occult Blood 25 H Urine Nitrite Negative Urine Bilirubin Negative Urine Urobilinogen Normal Ur Leukocyte Esterase Negative Assessment/Plan iron deficiency anemia I plan to perform upper and lower endoscopy. We will plan for bowel prep this evening and proceed with endoscopy under monitored anesthetic care tomorrow. The patient understands the risks, benefits, complications and possible alternatives to endoscopy and consents to these procedures. without gross bleeding, I am totally comfortable with the patient he maintained on her oral anticoagulant. She was given Protonix on admission.
--- NOTE | 2018-04-20 21:00 | NURSING ---
This nurse explained to patient the importance of drinking the go lytley for colonoscopy prep. Patient was encouraged to continue to drink as ordered.
[2018-04-20] MEDS: Montelukast 10 MG Tablet PO (22:00)
[2018-04-20] MEDS: Atorvastatin Calcium 40 MG Tablet PO (22:00)
[2018-04-20] MEDS: 0.9% NaCl Peripheral Flush Adult/Peds IV (22:49)
--- NOTE | 2018-04-20 23:00 | NURSING ---
This nurse and the nurses aide continued to encourage patient to drink go lytley for bowel prep for colonoscopy.
[2018-04-21] VITALS (20 sets, daily range): BP systolic 85–134; BP diastolic 41–74; PULSE 70–90; RESP 14–20; TEMP 36.6–37.4; O2SAT 92–99
[2018-04-21] MEDS: Ipratropium/Albuterol Sulfate 3 ML AMPUL.NEB INHALATION ×3 (00:09→19:59)
[2018-04-21] MEDS: Acetaminophen 325 MG Tablet 650 MG PO (02:12)
[2018-04-21] MEDS: Pramipexole Di-HCl 1 MG Tablet PO ×2 (02:12→22:50)
--- NOTE | 2018-04-21 05:55 | EKG12_ITS ---
Test Reason : AM Blood Pressure : / mmHG Vent. Rate : 078 BPM Atrial Rate : 078 BPM P-R Int : 172 ms QRS Dur : 086 ms QT Int : 368 ms P-R-T Axes : 052 051 065 degrees QTc Int : 419 ms Normal sinus rhythm Septal infarct , age undetermined Abnormal ECG When compared with ECG of 20-APR-2018 03:18, MANUAL COMPARISON REQUIRED, DATA IS UNCONFIRMED Confirmed by SANDI LEI, WILBERTO ([id number]), scientific editor DANIA FULLER ([id number] on 04/27/2018 11:48:18 AM Referred By: SEFERINO Confirmed By:WILBERTO JUNIOR MD
[2018-04-21 06:52] LABS: Absolute Lymphocyte Count 1.43 X10^3/ul (0.83-4.51); Basophil# 0.05 X10^3/uL; Basophil% 0.5 % (0-1); Hematocrit 30.5 % (37-47); Hemoglobin 8.9 g/dl (12.0-15.0); Lymphocyte # 1.43 X10^3/ul (4.0); Lymphocyte % 14.7 % (19-41); Mean Corp Hgb Conc 29.2 g/gl (32-36); Mean Corpuscular Hgb 24.7 pg (27.0-32.0); Mean Corpuscular Volume 84.7 fL (81-99); Mean Platelet Vol. 8.8 fl (6.2-12.0); Monocyte# 0.95 X10^3/uL; Monocyte% 9.7 % (0-10); Neutrophil % 71.8 % (47-70); Platelet Count 267 K/mm3 (150-450); RBC Distribution Width CV 17.8 % (11.6-14.6); RBC Distribution Width SD 53.4 fl (35.1-43.9); White Blood Count 9.8 K/mm3 (4.4-11.0)
[2018-04-21 07:03] LABS: POSITIVE COUNT NO; POSITIVE DIFFERENTIAL NO; POSITIVE MORPHOLOGY NO
[2018-04-21 07:09] LABS: Anion Gap 5 (5-15); BUN 11 mg/dL (7-18); BUN/Creat Ratio 19.1 RATIO (10-20); Calcium,Total 8.2 mg/dL (8.5-10.1); Chloride 109 mmol/L (98-107); Creatinine, Serum 0.58 mg/dL (0.55-1.02); EST Glomerular Filtration Rate 108 mL/min (>60); Est Glom Filt Rate - Afr Amer 131 mL/min (>60); Estimated Creatinine Clearance 37.85 ml/min; Glucose 85 mg/dL (74-106); Potassium 3.7 mmol/L (3.5-5.1); Sodium Level 141 mmol/L (136-145)
--- NOTE | 2018-04-21 08:06 | PCM.PROGNOTE ---
Subjective: Chief complaint: Follow-up after admission for bilateral lower lobe community acquired pneumonia, sepsis, pleuritic chest pain, anemia and hypotension. Patient seen and examined. No acute events overnight. This morning, she complained of upset stomach and nausea after she started the bowel preparation. Her shortness of breath and left-sided pleuritic chest pain has been improving. She denies fever chills. Blood pressure improved. Other vitals are stable, afebrile. - Physical Exam General: Alert, Oriented x3, Cooperative, No apparent distress HEENT: Atraumatic, PERRLA, EOMI, Normocephalic Oral: Moist Mucosa, No Gingival or Mucosal Lesions/ Ulcerations Neck: Supple, No JVD, Negative Carotid Bruits, Trachea Midline, Thyroid Normal Size and Texture Lungs: No wheeze, No rales, Diminished, Rhonchi, - - Decreased breath sounds bilateral, more at the bases, rhonchi. Cardiovascular: Regular rate, Regular Rhythm, Normal S1, Normal S2, PMI Normal Abdomen: Bowel Sounds Present, Soft, Non Tender, Non-Distended, No Hepato-splenomegaly, Obese, Hernia Extremities: No clubbing, No cyanosis, Edema - Trace edema. Skin: No rashes, No breakdown Lymphatic: No Cervical, Supraclavicular, or Inguinal Adenopathy Neurological: Cranial nerves II-XII grossly intact, Neuro grossly intact Psych/Mental Status: Normal Affect, Appropriate Vital Signs Temp Pulse Resp BP Pulse Ox 98.7 F 78 18 134/74 H 98 04/21/18 05:30 04/21/18 07:00 04/21/18 05:30 04/21/18 05:30 04/21/18 05:30 Oxygen Flow Rate (L/min) 2 Oxygen Delivery Method Nasal Cannula Weight: 274 lb 0.553 oz Body Mass Index (BMI) 50.1 Finger Stick Blood Glucose 88 Intake and Output for Last 24 Hours 04/19/18 04/20/18 04/21/18 23:59 23:59 23:59 Intake Total 1969 / 1969 3156 / 3156 1500 / 1500 Output Total 1000 / 1000 500 / 500 Balance 970 / 970 2656 / 2656 1500 / 1500 Microbiology Past 72 Hours 04/20/18 15:25 Legionella Antigen - Final Urine Catheter - Catheter 04/20/18 15:25 Streptococcus pneumoniae Antigen (M - Final Urine Catheter - Catheter 04/19/18 19:55 Gram Stain - Final Sputum, Expectorated/Coughed 04/19/18 13:23 Respiratory Panel (PCR) - Final Mucosa - Nose Laboratory Tests Past 24 Hrs 04/20/18 04/20/18 04/21/18 05:15 15:25 06:05 WBC 9.8 RBC 3.60 L Hgb 8.9 L Hct 30.5 L MCV 84.7 MCH 24.7 L MCHC 29.2 L RDW 17.8 H RDW Differential 53.4 H Plt Count 267 MPV 8.8 Immature Gran % (Auto) 1.300 H Neut % (Auto) 71.8 H Lymph % (Auto) 14.7 L [place] % (Auto) 9.7 Eos % (Auto) 2.0 Baso % (Auto) 0.5 Absolute Neuts (auto) 7.0 Absolute Lymphs (auto) 1.43 Total Counted Not Reportable Sodium Potassium Chloride Carbon Dioxide Anion Gap BUN Creatinine Estim Creat Clear Calc Est GFR (MDRD) Af Amer Est GFR (MDRD) Non-Af BUN/Creatinine Ratio Glucose Hemoglobin A1c Calcium TSH 0.57 Urine Color Yellow Urine Clarity Clear Urine pH 6.0 Ur Specific [place] 1.010 Urine Protein Negative Urine Glucose (UA) Normal Urine Ketones Negative Urine Occult Blood 25 H Urine Nitrite Negative Urine Bilirubin Negative Urine Urobilinogen Normal Ur Leukocyte Esterase Negative 04/21/18 04/21/18 06:05 06:05 WBC RBC Hgb Hct MCV MCH MCHC RDW RDW Differential Plt Count MPV Immature Gran % (Auto) Neut % (Auto) Lymph % (Auto) [place] % (Auto) Eos % (Auto) Baso % (Auto) Absolute Neuts (auto) Absolute Lymphs (auto) Total Counted Sodium 141 Potassium 3.7 Chloride 109 H Carbon Dioxide 27.0 Anion Gap 5 BUN 11 Creatinine 0.58 Estim Creat Clear Calc 37.85 Est GFR (MDRD) Af Amer 131 Est GFR (MDRD) Non-Af 108 BUN/Creatinine Ratio 19.1 Glucose 85 Hemoglobin A1c Pending Calcium 8.2 L TSH Urine Color Urine Clarity Urine pH Ur Specific [place] Urine Protein Urine Glucose (UA) Urine Ketones Urine Occult Blood Urine Nitrite Urine Bilirubin Urine Urobilinogen Ur Leukocyte Esterase Medical Necessity - Tobacco Use Smoking Status: Current every day smoker Tobacco Use: Cigarettes Assessment/Plan This is a 77 years old female patient presented to the emergency room because of left lateral pleuritic chest pain associated with shortness of breath and productive cough as well as chills and subjective fever, found to have bilateral lower lobe consolidation worse on the left side on CTA chest and she is being admitted for bilateral lower lobe community acquired pneumonia, became hypotensive in the ER without symptoms and with normal lactic acid. #1 bilateral lower lobe community-acquired pneumonia/sepsis: Remained on IV Levaquin. She has been afebrile, white blood cell count is back to normal. Her blood pressure improved, back to normal. Respiratory panel for viruses were negative. Blood and sputum cultures are pending. Plan to continue same treatment. #2 left lateral pleuritic chest pain: Initial and repeat EKG revealed resolution of the ST segment depression in V4 V5 and V6. Troponin is negative x3. ACS ruled out. #3 hypotension: Asymptomatic, blood pressure has been in the 80s systolic, no tachycardia. EKG showed normal sinus rhythm, ST segment depression in lateral chest leads resolved, no acute changes. Today, blood pressure improved and it is back to normal. 2D echocardiogram revealed normal ejection fraction. #4 iron deficiency anemia: It is acute on chronic. Baseline hemoglobin around 10-12 g/dL. Admission hemoglobin was 9, came down to 8.9 g/dL today. Patient reported intermittent dark stools, no hematochezia. She stated that she had a history of bariatric surgery 15 years ago that complicated with postoperative gastric bleeding according to the patient. Her iron is very low. Stool for occult blood ordered. General surgery consulted, plan for upper EGD and colonoscopy today. #5 CAD status post PCI/stents: Repeat EKG reviewed as above, changes resolved. Troponin is negative x3. Continue Plavix twice daily, statins, metoprolol, hold losartan. 2D echocardiogram reviewed as above. #6 type 2 diabetes mellitus: Blood sugar has been stable, continue ADA diet, Accu-Cheks, insulin sliding scale, she has not been on any treatment at home. #7 COPD/chronic respiratory failure: On home oxygen at 3 L as needed. Continue DuoNeb every 6 hours, albuterol as needed, oxygen by nasal cannula as above. #8 hypertension: Blood pressure improved, she is asymptomatic. She is only on metoprolol. #9 hyperlipidemia: Continue statins. #10 DVT prophylaxis: Subcu Lovenox. This note was generated with [employer] dictation software. It may contain incorrect words, spelling, and punctuation that were not noted in checking the note before signing. Code Visit Inpatient E&M: 65705 Subs Hosp L2
[2018-04-21 08:25] LABS: Hemoglobin A1c 5.5 % (4.2-6.3)
[2018-04-21] MEDS: proCHLORPERazine 10 MG/2 ML Vial 5 MG IV (08:36)
--- NOTE | 2018-04-21 09:58 | CASEMGMT ---
FADY gave patient a medical alert button list per her request. Laney SIMS MSW
--- NOTE | 2018-04-21 10:57 | CASEMGMT ---
Wheeled walker script faxed to [facility] at this time and call placed to [facility]. Per Susan at [facility], they are no longer doing DME at this time. [place] now [place] [facility] [place] stated no further preference at this time. Call to [place] to notify, voices understanding. Tra TIMMONS CM then received call back from Susan at [facility] and she now states that they will do the walker for the pt since she is already established with them. Call back to [place] to notify her to disregard script at this time, voices understanding. Pt will be updated on all when she returns from procedure. Loan TIMMONS CM
--- NOTE | 2018-04-21 12:40 | OP.ENDO_ITS ---
Patient Name: Ada Mathias Procedure Date: 04/21/2018 11:45 AM Date of : 1940 Age: 77 Procedure: Upper GI endoscopy Indications: Iron deficiency anemia Providers: Geovanny Zuniga MD Medicines: Monitored Anesthesia Care Patient Profile: This is a 77 year old female. Refer to note in patient chart for documentation of history and physical. Complications: No immediate complications. Procedure: Pre-Anesthesia Assessment: - Prior to the procedure, a History and Physical was performed, and patient medications and allergies were reviewed. The patient is competent. The risks and benefits of the procedure and the sedation options and risks were discussed with the patient. All questions were answered and informed consent was obtained. Patient identification and proposed procedure were verified by the physician, the nurse and the security patrol officer in the procedure room. Mental Status Examination: alert and oriented. Airway Examination: normal oropharyngeal airway and neck mobility. Respiratory Examination: clear to auscultation. CV Examination: normal. Prophylactic Antibiotics: The patient does not require prophylactic antibiotics. Prior Anticoagulants: The patient has taken Plavix (clopidogrel). ASA Grade Assessment: III - A patient with severe systemic disease. After reviewing the risks and benefits, the patient was deemed in satisfactory condition to undergo the procedure. The anesthesia plan was to use monitored anesthesia care (MAC). Immediately prior to administration of medications, the patient was re-assessed for adequacy to receive sedatives. The heart rate, respiratory rate, oxygen saturations, blood pressure, adequacy of pulmonary ventilation, and response to care were monitored throughout the procedure. The physical status of the patient was re-assessed after the procedure. After obtaining informed consent, the endoscope was passed under direct vision. Throughout the procedure, the patient's blood pressure, pulse, and oxygen saturations were monitored continuously. The gastroscope was introduced through the mouth, and advanced to the efferent jejunal loop. The upper GI endoscopy was accomplished without difficulty. The patient tolerated the procedure well. Scope In: 12:02:45 PM Scope Out: 12:05:53 PM Total Procedure Duration Time 0 hours 3 minutes 8 seconds Findings: The examined jejunum was normal. 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 The gastrojejunal anastomosis was characterized by healthy appearing mucosa. This was traversed. The [id number] limb was characterized by healthy appearing mucosa. The ihhchmnt-[id number]-[id number] limb was examined. The examined esophagus was normal. Impression: - Normal examined jejunum. - Ayanna-en-Y gastrojejunostomy with gastrojejunal anastomosis characterized by healthy appearing mucosa. - Normal esophagus. - No specimens collected. Recommendation: - [facility]. - Continue present medications. Procedure Code(s): --- Professional --- 06381, Esophagogastroduodenoscopy, flexible, transoral; diagnostic, including collection of specimen(s) by brushing or washing, when performed (separate procedure) CPT copyright 2017 [employer]. All rights reserved. The codes documented in this report are preliminary and upon surgical assist review may be revised to meet current compliance requirements. Geovanny Zuniga MD 04/21/2018 12:38:42 PM This report has been signed electronically. Number of Addenda: 0 Note Initiated On: 04/21/2018 11:45 AM
--- NOTE | 2018-04-21 12:42 | OP.ENDO_ITS ---
Patient Name: Ada Mathias Procedure Date: 04/21/2018 12:07 PM Date of : 1940 Age: 77 Procedure: Colonoscopy Indications: Iron deficiency anemia Providers: Geovanny Zuniga MD Medicines: Monitored Anesthesia Care Patient Profile: This is a 77 year old female. Refer to note in patient chart for documentation of history and physical. Last Colonoscopy: date unknown. Complications: No immediate complications. Procedure: Pre-Anesthesia Assessment: - Prior to the procedure, a History and Physical was performed, and patient medications and allergies were reviewed. The patient is competent. The risks and benefits of the procedure and the sedation options and risks were discussed with the patient. All questions were answered and informed consent was obtained. Patient identification and proposed procedure were verified by the physician, the nurse and the waste management recycling technician in the procedure room. Mental Status Examination: alert and oriented. Airway Examination: normal oropharyngeal airway and neck mobility. Respiratory Examination: clear to auscultation. CV Examination: normal. Prophylactic Antibiotics: The patient does not require prophylactic antibiotics. Prior Anticoagulants: The patient has taken Plavix (clopidogrel). ASA Grade Assessment: III - A patient with severe systemic disease. After reviewing the risks and benefits, the patient was deemed in satisfactory condition to undergo the procedure. The anesthesia plan was to use monitored anesthesia care (MAC). Immediately prior to administration of medications, the patient was re-assessed for adequacy to receive sedatives. The heart rate, respiratory rate, oxygen saturations, blood pressure, adequacy of pulmonary ventilation, and response to care were monitored throughout the procedure. The physical status of the patient was re-assessed after the procedure. After I obtained informed consent, the scope was passed under direct vision. Throughout the procedure, the patient's blood pressure, pulse, and oxygen saturations were monitored continuously. The pediatric colonoscope was introduced through the anus and advanced to the ascending colon. The colonoscopy was performed without difficulty. The patient tolerated the procedure well. The quality of the bowel preparation was poor. Scope In: 12:09:00 PM Scope Out: 12:33:33 PM Total Procedure Duration Time 0 hours 24 minutes 33 seconds Findings: The perianal and digital rectal examinations were normal. Liquid stool was found in the entire colon, interfering with visualization. Fluid aspiration was performed. The entire examined colon appeared normal. Impression: - Preparation of the colon was poor. - Stool in the entire examined colon. Fluid aspiration performed. - The entire examined colon is normal. Recommendation: - No recommendation at this time regarding repeat colonoscopy due to no evidence of mucosal or other abnormalities on today's exam. - Continue present medications. Procedure Code(s): --- Professional --- 07052, 53, Colonoscopy, flexible; diagnostic, including collection of specimen(s) by brushing or washing, when performed (separate procedure) CPT copyright 2017 [employer]. All rights reserved. The codes documented in this report are preliminary and upon brickmason review may be revised to meet current compliance requirements. Geovanny Zuniga MD 04/21/2018 12:40:53 PM This report has been signed electronically. Number of Addenda: 0 Note Initiated On: 04/21/2018 12:07 PM
--- NOTE | 2018-04-21 12:48 | PN.SURG_ITS ---
Subjective: complaining of abdominal distention with minimal output with bowel prep before procedure - Physical Exam General: Alert, Oriented x3, Cooperative Lungs: Diminished Cardiovascular: Regular rate, Regular Rhythm Abdomen: Bowel Sounds Present, Soft, Distended Vital Signs Temp Pulse Resp BP Pulse Ox 98.2 F 81 14 116/54 L 97 04/21/18 08:30 04/21/18 08:30 04/21/18 08:30 04/21/18 08:30 04/21/18 08:30 Oxygen Flow Rate (L/min) 3 Oxygen Delivery Method Nasal Cannula Weight: 124.3 kg Body Mass Index (BMI) 50.1 Finger Stick Blood Glucose 88 Intake and Output for Last 24 Hours 04/19/18 04/20/18 04/21/18 23:59 23:59 23:59 Intake Total 1970 / 1970 3156 / 3156 1500 / 1500 Output Total 1000 / 1000 500 / 500 Balance 970 / 970 2656 / 2656 1500 / 1500 Microbiology Past 72 Hours 04/19/18 19:55 Gram Stain - Final Sputum, Expectorated/Coughed Respiratory Culture - Preliminary 04/20/18 15:25 Legionella Antigen - Final Urine Catheter - Catheter 04/20/18 15:25 Streptococcus pneumoniae Antigen (M - Final Urine Catheter - Catheter 04/19/18 13:23 Respiratory Panel (PCR) - Final Mucosa - Nose Laboratory Tests Past 24 Hrs 04/20/18 04/21/18 04/21/18 15:25 06:05 06:05 WBC 9.8 RBC 3.60 L Hgb 8.9 L Hct 30.5 L MCV 84.7 MCH 24.7 L MCHC 29.2 L RDW 17.8 H RDW Differential 53.4 H Plt Count 267 MPV 8.8 Immature Gran % (Auto) 1.300 H Neut % (Auto) 71.8 H Lymph % (Auto) 14.7 L [place] % (Auto) 9.7 Eos % (Auto) 2.0 Baso % (Auto) 0.5 Absolute Neuts (auto) 7.0 Absolute Lymphs (auto) 1.43 Total Counted Not Reportable Sodium 141 Potassium 3.7 Chloride 109 H Carbon Dioxide 27.0 Anion Gap 5 BUN 11 Creatinine 0.58 Estim Creat Clear Calc 37.85 Est GFR (MDRD) Af Amer 131 Est GFR (MDRD) Non-Af 108 BUN/Creatinine Ratio 19.1 Glucose 85 Hemoglobin A1c Calcium 8.2 L Urine Color Yellow Urine Clarity Clear Urine pH 6.0 Ur Specific [place] 1.010 Urine Protein Negative Urine Glucose (UA) Normal Urine Ketones Negative Urine Occult Blood 25 H Urine Nitrite Negative Urine Bilirubin Negative Urine Urobilinogen Normal Ur Leukocyte Esterase Negative 04/21/18 06:05 WBC RBC Hgb Hct MCV MCH MCHC RDW RDW Differential Plt Count MPV Immature Gran % (Auto) Neut % (Auto) Lymph % (Auto) [place] % (Auto) Eos % (Auto) Baso % (Auto) Absolute Neuts (auto) Absolute Lymphs (auto) Total Counted Sodium Potassium Chloride Carbon Dioxide Anion Gap BUN Creatinine Estim Creat Clear Calc Est GFR (MDRD) Af Amer Est GFR (MDRD) Non-Af BUN/Creatinine Ratio Glucose Hemoglobin A1c 5.5 Calcium Urine Color Urine Clarity Urine pH Ur Specific [place] Urine Protein Urine Glucose (UA) Urine Ketones Urine Occult Blood Urine Nitrite Urine Bilirubin Urine Urobilinogen Ur Leukocyte Esterase Medical Necessity - Tobacco Use Smoking Status: Current every day smoker Tobacco Use: Cigarettes Assessment/Plan iron deficiency anemia upper and lower endoscopy performed - no signs of bleeding - minimal to no gastric pouch - appears to have jejunum directly into esophagus, but anastomosis clean. Colon with significant liquid stool - aspirated 2.5L of fluid - patient soft after procedure. Colon otherwise unremarkable. No abnormalities seen responsible for anemia I am comfortable with the patient alexandre maintained on her oral anticoagulant.
[2018-04-21] MEDS: Ferrous Gluconate 324 MG Tablet PO ×2 (14:42→17:19)
[2018-04-21] MEDS: Tolterodine Tartrate 4 MG CAP.SA PO (14:42)
[2018-04-21] MEDS: guaiFENesin 1,200 MG Tablet 1200 MG PO ×2 (14:42→22:49)
[2018-04-21] MEDS: Enoxaparin 40 MG/0.4 ML Syringe SC (14:42)
[2018-04-21] MEDS: Clopidogrel Bisulfate 75 MG Tablet PO ×2 (14:42→22:49)
[2018-04-21] MEDS: Citalopram 20 MG Tablet PO (14:42)
[2018-04-21] MEDS: levoFLOXacin IV 750 MG/150 ML BAG 100 MG IV (15:20)
[2018-04-21] MEDS: Atorvastatin Calcium 40 MG Tablet PO (22:48)
[2018-04-21] MEDS: Montelukast 10 MG Tablet PO (22:49)
[2018-04-22] MEDS: Acetaminophen 325 MG Tablet 650 MG PO (01:13)
[2018-04-22 03:35] VITALS: PULSE 74
[2018-04-22 04:46] VITALS: BP 103/55; PULSE 76; RESP 16; TEMP 36.6; O2SAT 97
[2018-04-22 06:34] LABS: Hematocrit 31.5 % (37-47); Hemoglobin 9.3 g/dl (12.0-15.0)
[2018-04-22 06:41] VITALS: PULSE 68; RESP 18; O2SAT 94
[2018-04-22] MEDS: Ipratropium/Albuterol Sulfate 3 ML AMPUL.NEB INHALATION (06:41)
[2018-04-22 07:00] VITALS: PULSE 70
--- NOTE | 2018-04-22 07:59 | PCM.DC ---
You will use the following diet at home:: Calorie/Carbohydrate Controlled (specify 1200, 1400, etc) - 1800 myla., Cardiac Your food should be the consistency of: Regular Discharge Activity: Return to Normal Activity Weight Bearing Status: Weight bearing as tolerated Call your doctor if you observe: Fever of 101 or Higher, Shortness of breath, Dizziness, Fainting spells, Chest pain, Increased palpitations (irregular heartbeat), Uncontrolled pain Instructions: Taking Your Blood Pressure Allergies/Adverse Reactions: Allergies aspirin [ASA] Allergy (Severe, Verified 02/06/18 11:38) Hives bupropion [From Wellbutrin] Allergy (Verified 02/06/18 11:38) Unknown codeine Allergy (Verified 02/06/18 11:38) Unknown meperidine HCl [From Demerol] Allergy (Verified 02/06/18 11:38) Hives naproxen sodium [From Anaprox] Allergy (Verified 02/06/18 11:38) Unknown Penicillins [PCN] Allergy (Verified 02/06/18 11:38) Unknown propoxyphene HCl [From Darvon] Allergy (Verified 02/06/18 11:38) Hives Sulfa (Sulfonamide Antibiotics) Allergy (Verified 02/06/18 11:38) Unknown gabapentin Adverse Reaction (Intermediate, Verified 02/14/18 17:06) Mental status change, foggy headed NSAIDS (Non-Steroidal Anti-Inflamma Adverse Reaction (Verified 02/06/18 11:38) Other Medications to take at Discharge Budesonide/Formoterol 80-4.5 [Symbicort 80-4.5 Mcg Inhaler] 2 puff INHALATION BID 02/28/13 Citalopram [Celexa] 20 mg PO DAILY 02/28/13 Fluticasone 0.05% [Flonase Nasal [place]] 2 spray NASAL DAILY PRN 02/28/13 Montelukast [Singulair] 10 mg PO QHS 07/08/14 Albuterol IH (ProAir) [Proair Hfa] 2 puff INHALATION Q6H PRN PRN 07/15/14 Atorvastatin Calcium [Lipitor] 40 mg PO QHS #30 tab 10/03/16 Tolterodine Tartrate [Detrol LA] 4 mg PO DAILY 11/18/17 furosemide 20 mg tablet 20 mg PO DAILY #30 tab 12/12/17 nitroglycerin 0.4 mg sublingual tablet 0.4 mg SUBLINGUAL Q5M PRN #25 tab 12/12/17 Cholecalciferol (Vitamin D3) [Vitamin D3] 1,000 unit PO DAILY 12/22/17 Hydrocodone/Acetaminophen [Hydrocodone-Acetamin 5-325 mg] 1 tab PO BID PRN PRN 12/22/17 clopidogrel 75 mg tablet 75 mg PO BID #60 tab 12/23/17 metoprolol tartrate 25 mg tablet 12.5 mg PO BID #30 tab 12/23/17 omeprazole 40 mg capsule,delayed release 40 mg PO DAILY 02/14/18 pramipexole 1 mg tablet 1 mg PO TID PRN tab 02/14/18 Ferrous Gluconate 325 mg PO BIDCM #90 tablet 04/22/18 Levofloxacin [Levaquin] 750 mg PO DAILY #4 tablet 04/22/18 The following prescriptions were given: Levofloxacin [Levaquin] 750 mg PO DAILY #4 tablet Ferrous Gluconate 325 mg PO BIDCM #90 tablet Primary Care Physician: Vicente Raya III, MD [Primary Care Provider] - Please follow up with your Primary Care Physician in: 1 week. Test Results: Test results from this visit will be discussed in further detail at your follow-up appointment, if applicable. Please Follow Up With: Stephon Roblero MD When: 2 weeks.
[2018-04-22 08:53] VITALS: BP 98/51; PULSE 78; RESP 16; TEMP 36.7; O2SAT 96
[2018-04-22 08:56] VITALS: PULSE 78
[2018-04-22] MEDS: Clopidogrel Bisulfate 75 MG Tablet PO (08:56)
[2018-04-22] MEDS: Ferrous Gluconate 324 MG Tablet PO (08:56)
[2018-04-22] MEDS: guaiFENesin 1,200 MG Tablet 1200 MG PO (08:56)
[2018-04-22] MEDS: Tolterodine Tartrate 4 MG CAP.SA PO (08:57)
[2018-04-22] MEDS: Citalopram 20 MG Tablet PO (08:57)
--- NOTE | 2018-04-22 10:04 | CASEMGMT ---
LW/POA forms not on the chart. SW let pt know, asked her to bring them in at some point in the future and we can put copies on the chart. Pt states understanding. ZACKARY Worthington, ASSOCIATE DIRECTOR FINANCIAL AID
--- NOTE | 2018-04-22 14:31 | PCM.DC.SUM ---
Discharge Date and Diagnosis Date of Admission: 04/19/18 Date of Discharge: 04/22/18 - Primary Discharge Diagnosis #1 bilateral lower lobe community-acquired pneumonia/sepsis. #2 left pleuritic chest pain, attributed to pneumonia, ACS ruled out. #3 iron deficiency anemia. #5 asymptomatic hypotension. - Secondary Discharge Diagnosis Chronic Problems (Last Updated 04/19/18 @ 12:24 by Teresita Hanley MD) Hyperlipidemia (Chronic) VBI (vertebrobasilar insufficiency) (Chronic) Stage 2 moderate COPD by GOLD classification (Chronic) Chronic hypoxemic respiratory failure (Chronic) History of right-sided carotid endarterectomy (Chronic ~07/2014) left subclavian artery stent (Chronic ~03/2017) Stenosis of left subclavian artery (Chronic ~03/2017) stent the left subclavian with a 7 x 39 Poonam History of coronary artery stent placement (Chronic 01/20/18) BFQ-AGK-Nmudjc LAD (2.25 X 24 Promus Synergy) and MUSHTAQ to 2 tandem lesions Prox LAD (3.5 X 24 Promus Synergy) 01/20/2018 XME-VRL-Tyuw RCA 03/22/13 UXX-UHZ-Iyucor RCA 2000 and 2002 Atherosclerosis of coronary artery of [place] heart without angina pectoris (Chronic) YEG-ODI-Kjqqiv LAD and MUSHTAQ to 2 tandem lesions Prox LAD 01/20/2018 OSC-GQR-Kski RCA 03/22/13 SHT-SEY-Bvbkfp RCA 2000 and 2002 Asthma (Chronic) HTN (hypertension) (Chronic) Tobacco abuse (Chronic) Obesities, morbid (Chronic) History of COPD (Chronic) History of diabetes mellitus, type II (Chronic) History of gastroesophageal reflux (GERD) (Chronic) Obstructive sleep apnea (Chronic) Hospital Course and Treatment Imaging Results: Clinical Impression(s) from Imaging Studies Chest X-Ray 04/19/18 07:16 IMPRESSION: 1. Right middle lobe and right basilar chronic appearing infiltrate. 2. Left basilar subsegmental atelectasis or infiltrate also suggested. at 0759 Reported and signed by: Sergio Garza MD Electronically Signed: Sergio Garza, at 7:58 EST Tel , Service support , Chest CTA 04/19/18 08:12 IMPRESSION: Atherosclerotic plaque formation of the abdominal aorta and major visceral vessels. Midline ventral hernia. Bibasilar infiltrates worse on the left side. Electronically Signed: Emanuel Ventura MD at 9:46 EST , Service support , Abdomen CTA 04/19/18 08:15 IMPRESSION: Atherosclerotic plaque formation of the abdominal aorta and major visceral vessels. Midline ventral hernia. Bibasilar infiltrates worse on the left side. Electronically Signed: Emanuel Ventura MD at 9:46 EST , Service support , Dr. Rachel, general surgery. Operations: None Procedures: 2-D Echocardiogram, Colonoscopy, EGD, EKG Summary of Care Provided: Patient seen and examined on the day of discharge and appeared to be stable to be discharged home. Her breathing continued to improve slowly. Her blood pressure improved, denied dizziness, lightheadedness, chest pain. Blood pressure has been around 100 systolic, other vital signs are stable. This is a 77 years old female patient presented to the emergency room because of left lateral pleuritic chest pain associated with shortness of breath and productive cough as well as chills and subjective fever, found to have bilateral lower lobe consolidation worse on the left side on CTA chest and she is being admitted for bilateral lower lobe community acquired pneumonia, also found to have iron deficiency anemia and asymptomatic hypotension. #1 bilateral lower lobe community-acquired pneumonia/sepsis: Treated with IV Levaquin. With IV antibiotic therapy, symptoms improved, remained afebrile for more than 72 hours and her white blood cell count dating back to normal. Respiratory panel for viruses were negative. Sputum culture revealed normal respiratory christian. Blood culture showed no growth in 48 hours. Pneumococcal and Legionella antigen were negative. Patient discharged home in a stable medical condition, discharged on Levaquin p.o. to complete 7 days of treatment. #2 left lateral pleuritic chest pain: This is attributed to pneumonia. Initial EKG revealed minimal ST segment depression in V4, V5 and V6 and repeat EKG revealed resolution of the ST segment depression in V4 V5 and V6. Troponin is negative x3. ACS ruled out. #3 hypotension: Initially, her systolic blood pressure was as low as 80s. Mostly, she was asymptomatic. 2D echocardiogram revealed normal ejection fraction. She did not found to have anemia, underwent upper EGD and colonoscopy that showed no evidence of acute GI bleed. She was continued on metoprolol, continued on Lasix, losartan discontinued. #4 iron deficiency anemia: Status post upper EGD and colonoscopy that showed no evidence of active GI bleed, no acute pathology. Hemoglobin was as low as 8.6 g/dL. There was no evidence of bleeding. Patient was started back on iron supplement and continued with her Plavix twice daily. #5 CAD status post PCI/stents: Stable, continue ond Plavix twice daily, statins, metoprolol, hold losartan. #6 type 2 diabetes mellitus: Blood sugar has been stable, she has not been on any treatment at home. #7 COPD/chronic respiratory failure: On home oxygen at 3 L as needed. Discharged on oxygen with the same settings. #8 hypertension: Blood pressure improved, discharged only on metoprolol and small dose of Lasix, losartan discontinued. #9 hyperlipidemia: Continued on statins. Patient discharged home in a stable medical condition, discharged on Levaquin 750 p.o. daily to complete 7 days of treatment, discharged on iron supplement, discharged on oxygen with the same previous settings, continued on her other chronic home medications without any changes except losartan which was discontinued because of low blood pressure, recommend follow-up with PCP in 1 week and follow-up with cardiology in 2 weeks. This note was generated with [employer] dictation software. It may contain incorrect words, spelling, and punctuation that were not noted in checking the note before signing. - Physical Exam General: Alert, Oriented x3, Cooperative, No apparent distress HEENT: Atraumatic, PERRLA, EOMI Oral: Moist Mucosa, No Gingival or Mucosal Lesions/ Ulcerations Neck: Supple, No JVD, Negative Carotid Bruits, Trachea Midline, Thyroid Normal Size and Texture Lungs: No wheeze, No rales, Diminished, Rhonchi Cardiovascular: Regular rate, Regular Rhythm, Normal S1, Normal S2, No murmurs Abdomen: Bowel Sounds Present, Soft, Non Tender, Non-Distended, No Hepato-splenomegaly, Obese Extremities: No clubbing, No cyanosis, Edema - Trace edema. Skin: No rashes, No breakdown Lymphatic: No Cervical, Supraclavicular, or Inguinal Adenopathy Neurological: Cranial nerves II-XII grossly intact, Neuro grossly intact Psych/Mental Status: Normal Affect, Appropriate Vital Signs Temp Pulse Resp BP Pulse Ox 98.1 F 78 16 98/51 L 96 04/22/18 08:53 04/22/18 08:56 04/22/18 08:53 04/22/18 08:53 04/22/18 08:53 Oxygen Flow Rate (L/min) 3 Oxygen Delivery Method Nasal Cannula Weight: 274 lb 0.553 oz Body Mass Index (BMI) 50.1 Finger Stick Blood Glucose 88 Intake and Output for Last 24 Hours 04/20/18 04/21/18 04/22/18 23:59 23:59 23:59 Intake Total 3156 / 3156 1999 841 / 841 Output Total 500 / 500 Balance 2656 / 2656 1999 841 / 841 Microbiology Past 72 Hours 04/19/18 19:55 Gram Stain - Final Sputum, Expectorated/Coughed Respiratory Culture - Final 04/19/18 07:46 Blood Culture - Preliminary Blood Culture (Wb) - Right Hand No growth in 48 hours. 04/19/18 07:40 Blood Culture - Preliminary Blood Culture (Wb) - Left Hand No growth in 48 hours. 04/20/18 15:25 Legionella Antigen - Final Urine Catheter - Catheter 04/20/18 15:25 Streptococcus pneumoniae Antigen (M - Final Urine Catheter - Catheter 04/19/18 13:23 Respiratory Panel (PCR) - Final Mucosa - Nose Laboratory Tests Past 24 Hrs 04/22/18 05:25 Hgb 9.3 L Hct 31.5 L Discharge Activity: Return to Normal Activity Weight Bearing Status: Weight bearing as tolerated Call your doctor if you observe: Fever of 101 or Higher, Shortness of breath, Dizziness, Fainting spells, Chest pain, Increased palpitations (irregular heartbeat), Uncontrolled pain Home Medications: Medications to take at Discharge Budesonide/Formoterol 80-4.5 [Symbicort 80-4.5 Mcg Inhaler] 2 puff INHALATION BID 02/28/13 Citalopram [Celexa] 20 mg PO DAILY 02/28/13 Fluticasone 0.05% [Flonase Nasal [place]] 2 spray NASAL DAILY PRN 02/28/13 Montelukast [Singulair] 10 mg PO QHS 07/08/14 Albuterol IH (ProAir) [Proair Hfa] 2 puff INHALATION Q6H PRN PRN 07/15/14 Atorvastatin Calcium [Lipitor] 40 mg PO QHS #30 tab 10/03/16 Tolterodine Tartrate [Detrol LA] 4 mg PO DAILY 11/18/17 furosemide 20 mg tablet 20 mg PO DAILY #30 tab 12/12/17 nitroglycerin 0.4 mg sublingual tablet 0.4 mg SUBLINGUAL Q5M PRN #25 tab 12/12/17 Cholecalciferol (Vitamin D3) [Vitamin D3] 1,000 unit PO DAILY 12/22/17 Hydrocodone/Acetaminophen [Hydrocodone-Acetamin 5-325 mg] 1 tab PO BID PRN PRN 12/22/17 clopidogrel 75 mg tablet 75 mg PO BID #60 tab 12/23/17 metoprolol tartrate 25 mg tablet 12.5 mg PO BID #30 tab 12/23/17 omeprazole 40 mg capsule,delayed release 40 mg PO DAILY 02/14/18 pramipexole 1 mg tablet 1 mg PO TID PRN tab 02/14/18 Ferrous Gluconate 325 mg PO BIDCM #90 tablet 04/22/18 Levofloxacin [Levaquin] 750 mg PO DAILY #4 tablet 04/22/18 Following Prescrptions Were Given to Patient: Levofloxacin [Levaquin] 750 mg PO DAILY #4 tablet Ferrous Gluconate 325 mg PO BIDCM #90 tablet Primary Care Physician: Vicente Raya III, MD [Primary Care Provider] - Please follow up with your Primary Care Physician in: 1 week. Please Follow Up With: Stephon Roblero MD When: 2 weeks. Please Follow Up With: Vicente Raya III, MD Patient Instructions: Taking Your Blood Pressure Disposition: Home Minutes spent on discharge:: 33 Patient Condition:: Stable Medical Necessity - Tobacco Use Smoking Status: Current every day smoker Tobacco Use: Cigarettes Meaningful Use Info Meaningful Use Diagnoses (Choose all that apply): None applicable Code Visit Inpatient E&M: 43830 Disch Hosp
--- NOTE | 2018-04-24 14:58 | CASEMGMT ---
SHANELLE LAGUNA DC PHONE CALL DC DATE: 04/22/18 DC DISPOSITION: HOME Message left for pt to return RN LUZ ELENA call with any questions re: dc instructions, prescriptions or f/u. A.Aly RICHADRN SHANELLE AC
== END 2018-04-22 10:53 | disposition home or self-care (01) | DRG 194 ==
LOC: ED 08:29 → PCU 11:37
PROVIDERS: Anesthesiology; Surgery; Admitting Provider Hospitalist; Emergency Provider Emergency Medicine; Family Provider Family Medicine; PCP Family Medicine; Visit Provider Hospitalist
PROC: 0DJD8ZZ Inspection of Lower Intestinal Tract, Via Natural or Artificial Opening Endoscopic (ICD-10-PCS; CPT 45378; principal; 2018-04-21 11:25)
DX: J18.9 Pneumonia, unspecified organism (principal); J96.11 Chronic respiratory failure with hypoxia; Z68.43 Body mass index [BMI] 50.0-59.9, adult; Z99.81 Dependence on supplemental oxygen; E78.5 Hyperlipidemia, unspecified; F17.210 Nicotine dependence, cigarettes, uncomplicated; I25.10 Atherosclerotic heart disease of native coronary artery without angina pectoris; D50.9 Iron deficiency anemia, unspecified; J44.9 Chronic obstructive pulmonary disease, unspecified; G47.33 Obstructive sleep apnea (adult) (pediatric); I10 Essential (primary) hypertension; Z98.84 Bariatric surgery status; Z95.5 Presence of coronary angioplasty implant and graft; I95.9 Hypotension, unspecified; E11.9 Type 2 diabetes mellitus without complications; E66.01 Morbid (severe) obesity due to excess calories
CPT/HCPCS: 36415; 71045; 71275; 74175; 80048; 80053; 81002; 82728; 83036; 83540; 83550; 83605; 83880; 84443; 84484; 85014; 85018; 85025; 85610; 87040; 87070; 87205; 87449; 87633; 93005; 93306; 94640; 94667; 94668; 97110; 97162; 97165; 97802; 99285; J1756; J7030; J7040; J7120; Q9957; Q9967; A4216; C8929; J2405

== ENCOUNTER 2018-05-30 13:36 | Emergency (ER) | payer MEDICARE, SELFPAY ==
[2017-12-22 12:49] VITALS: BMI 49.4
[2018-04-27 14:51] VITALS: BMI 50.1
[2018-05-30 13:51] VITALS: BP 156/102; PULSE 103; RESP 20; TEMP 36.8; O2SAT 92; BMI 45.7
--- NOTE | 2018-05-30 14:28 | CT_ITS ---
STUDY: CT ABDOMEN AND PELVIS WITH CONTRAST REASON FOR EXAM: Female, 77 years old. Ventral hernia. Pain. RADIATION DOSAGE (If Supplied By Facility): CTDIvol = ( 18.74 ) mGy, DLP = ( 1172.41 ) mGycm TECHNIQUE: Transaxial images were obtained from the dome of the diaphragm to the symphysis pubis without oral contrast. Isovue 370 100 IV/Oral was administered. Sagittal and coronal images were reconstructed. Individualized dose optimization techniques were used for this CT. COMPARISON: January 28 and February 03, 2018 FINDINGS: There is minimal right lower lobe atelectasis and/or scarring. There are coronary artery calcifications present. There is intrahepatic ductal dilatation that is more pronounced than the prior examination. There are surgical clips in the gallbladder fossa consistent with a prior cholecystectomy. Normal spleen. Normal pancreas. Normal bilateral adrenal glands. There is a right renal cysts. Normal left kidney. There is a small hiatal hernia there are associated postsurgical changes of the stomach present. There are dilated loops of the small intestine consistent with a bowel obstruction. There is a supraumbilical ventral hernia that contains a segment of transverse colon and appears to be a transition point of the obstruction. The appendix is visualized and appears normal. There is diffuse atherosclerotic calcification of the abdominal aorta, without a demonstrated aneurysm. Normal inferior vena cava. Normal retroperitoneum. Normal urinary bladder. Normal abdominal wall. Normal osseous structures. CT/Abdomen/Pelvis WITH Contrast IMPRESSION: Bowel obstruction that appears to be secondary to a ventral hernia containing a segment of transverse colon. Intrahepatic ductal dilatation that has progressed since the prior examination. Atherosclerosis. Degenerative changes. Electronically Signed: Mely Mccollum MD at 17:21 EDT Tel , Service support ,
[2018-05-30] MEDS: Morphine 4 MG/ML Syringe IV ×3 (14:52→21:35)
[2018-05-30] MEDS: Ondansetron 4 MG/2 ML Vial IV ×2 (14:52→20:09)
[2018-05-30] MEDS: 0.9% Normal Saline 1,000 ML 1000 ML IV (14:52)
[2018-05-30 14:57] LABS: Absolute Lymphocyte Count 1.04 X10^3/ul (0.83-4.51); Absolute Neutrophil Count 12.1 X10^3/uL (2.0-7.7); Basophil# 0.02 X10^3/uL; Basophil% 0.1 % (0-1); Hematocrit 44.2 % (37-47); Hemoglobin 13.5 g/dl (12.0-15.0); Lymphocyte # 1.04 X10^3/ul (4.0); Lymphocyte % 7.1 % (19-41); Mean Corp Hgb Conc 30.5 g/gl (32-36); Mean Corpuscular Hgb 25.7 pg (27.0-32.0); Mean Corpuscular Volume 84.2 fL (81-99); Mean Platelet Vol. 8.5 fl (6.2-12.0); Monocyte# 1.47 X10^3/uL; Neutrophil # 12.13 X10^3/uL (2.7-7.7); Neutrophil % 82.5 % (47-70); Platelet Count 410 K/mm3 (150-450); RBC Distribution Width CV 20.1 % (11.6-14.6); RBC Distribution Width SD 61.8 fl (35.1-43.9); Red Blood Count 5.25 M/mm3 (4.2-5.4); White Blood Count 14.7 K/mm3 (4.4-11.0)
[2018-05-30 14:58] LABS: Differential Indicated SCAN CRITERIA MET; POSITIVE COUNT NO; POSITIVE DIFFERENTIAL NO; POSITIVE MORPHOLOGY YES
[2018-05-30 15:00] VITALS: BP 139/69; PULSE 101; RESP 20; O2SAT 92
[2018-05-30 15:13] LABS: ALB/GLOB Ratio 0.7 RATIO (0.9-2.4); AST(SGOT) 28 U/L (15-37); Alanine Aminotransfer ALT/SGPT 22 U/L (13-56); Albumin, Serum 3.6 g/dL (3.2-5.0); Alkaline Phosphatase 119 U/L (45-117); Anion Gap 11 (5-15); Anisocytosis 1+; BUN 27 mg/dL (7-18); BUN/Creat Ratio 25.2 RATIO (10-20); Calcium,Total 9.3 mg/dL (8.5-10.1); Chloride 103 mmol/L (98-107); Creatinine, Serum 1.07 mg/dL (0.55-1.02); Differential Comment SCANNED; EST Glomerular Filtration Rate 53 mL/min (>60); Est Glom Filt Rate - Afr Amer 64 mL/min (>60); Globulin 5.3 g/dL (2.2-4.2); Glucose 130 mg/dL (74-106); Lipase 47 U/L (73-393); Potassium 4.1 mmol/L (3.5-5.1); Protein, Total 8.9 g/dL (6.4-8.2); Sodium Level 139 mmol/L (136-145)
--- NOTE | 2018-05-30 15:33 | ED.VIS.GEN ---
History of Present Illness Chief Complaint: Abd Pain Informant: Patient, Family Onset: Days - 3 Context: Gradual Onset Timing: Continuous Current Severity: Severe Maximum Severity: Severe Associated Symptoms: n/v - brown bile Narrative: Patient states she has had an incarcerated ventral hernia for the past year or more. She states that yes, she was considered for surgery but considered to be a very poor candidate partially because she was not able to be taken off of Plavix. She states she has continued to have bowel movements, even in the last several days, during which her chronic hernia pain has been a lot worse and she has been vomiting. Bowel movements consist of similar substance that she is vomiting. She denies any blood. She states from time to time she has episodes like these, except this 1 is worse and she is not able to keep down any fluids now. For the last couple days. - Past Medical History (1) Atherosclerosis of coronary artery of [place] heart without angina pectoris Status: Chronic Comment: SGD-XKN-Fjzehs LAD and MUSHTAQ to 2 tandem lesions Prox LAD 01/20/2018 EER-GAQ-Idek RCA 03/22/13 KRY-ICU-Eiuygj RCA 2000 and 2002 (2) Chronic hypoxemic respiratory failure Status: Chronic (3) HTN (hypertension) Status: Chronic (4) History of COPD Status: Chronic (5) History of coronary artery stent placement Status: Chronic Comment: TWD-VIZ-Eijkou LAD (2.25 X 24 Promus Synergy) and MUSHTAQ to 2 tandem lesions Prox LAD (3.5 X 24 Promus Synergy) 01/20/2018 ARX-RSK-Wxxc RCA 03/22/13 SSY-KSB-Czgtue RCA 2000 and 2002 (6) History of diabetes mellitus, type II Status: Chronic (7) History of gastroesophageal reflux (GERD) Status: Chronic (8) Hyperlipidemia Status: Chronic (9) Obstructive sleep apnea Status: Chronic (10) Stenosis of left subclavian artery Status: Chronic Comment: stent the left subclavian with a 7 x 39 Poonam (11) VBI (vertebrobasilar insufficiency) Status: Chronic (12) left subclavian artery stent Status: Chronic Past Medical History - Allergies and Home Meds Allergies/Adverse Reactions: Allergies aspirin [ASA] Allergy (Severe, Verified 05/30/18 13:59) Hives bupropion [From Wellbutrin] Allergy (Verified 05/30/18 13:59) Unknown codeine Allergy (Verified 05/30/18 13:59) Unknown meperidine HCl [From Demerol] Allergy (Verified 05/30/18 13:59) Hives naproxen sodium [From Anaprox] Allergy (Verified 05/30/18 13:59) Unknown Penicillins [PCN] Allergy (Verified 05/30/18 13:59) Unknown propoxyphene HCl [From Darvon] Allergy (Verified 05/30/18 13:59) Hives Sulfa (Sulfonamide Antibiotics) Allergy (Verified 05/30/18 13:59) Unknown gabapentin Adverse Reaction (Intermediate, Verified 05/30/18 13:59) Mental status change, foggy headed NSAIDS (Non-Steroidal Anti-Inflamma Adverse Reaction (Verified 05/30/18 13:59) Other Primary Care Physician: Vicente Raya III, MD [Primary Care Provider] - Surgical History: angioplasty, - - 3 heart stents, bariatric surgery and , carotid endarterectemy Lives: Spouse/ Significant Other Smoking Status: Current every day smoker - Family History Maternal Family History: Family History (Last Reviewed 04/27/18 @ 14:45 by Fang Gomez) Mother CVA (cerebral vascular accident) Father Asthma Hypertension High blood cholesterol level Arthritis Family History: Reports: Stroke Review of Systems General: Reports: Malaise. Denies: Chills, Fever, Sweats Eyes: Denies: Visual changes - bilaterally, Diplopia ENT: Denies: Rhinorrhea, Sore throat Cardiovascular: Denies: Chest pain, Palpitations Respiratory: Denies: Dyspnea, Cough, Dyspnea on exertion Gastrointestinal: Reports: Abdominal pain, Nausea, Vomiting, Diarrhea. Denies: Melena, Hematochezia Genitourinary: Denies: Dysuria, Hematuria, Frequency Musculoskeletal: Reports: Back pain - chronic Skin: Denies: Rash, Wounds Neurological: Denies: Headache, Weakness, Numbness Physical Exam Vital Signs/Narrative: Vital Signs Temp Pulse Resp BP Pulse Ox 05/30/18 15:00 101 H 20 H 139/69 H 92 05/30/18 13:51 98.2 F 103 H 20 H 156/102 H 92 Inital Vital Signs reviewed: Yes General: Well nourished, Well developed, Obese, Acute Distress - pain, vomiting Head: Normocephalic, Atraumatic Eyes: Perrl, EOMI ENT: Moist mucous membranes, No rhinorrhea Neck: Supple, Nontender Cardiovascular: Regular rate, Regular rhythm, No murmurs Respiratory: No distress, CTA bilaterally, Chest nontender Abdomen: Soft, Tender - very tender over nonreducible ventral hernia lower abd, Guarding - voluntary, at hernia, Ventral hernia. Negative for: Normal bowel sounds - occasional high-pitched BS around hernia, Rebound tenderness Back: Nontender, Normal Inspection. Negative for: CVA tenderness Extremities: Nontender, No edema Skin: Normal color, No rash Neurological: Alert, Oriented x3, Cranial nerves II-XII grossly intact, Normal Strength, Normal Sensation Psychological: Normal affect, Normal Mood Diagnostic/Tx/Re-eval Laboratory Tests 05/30/18 05/30/18 Range/Units 14:45 14:45 WBC 14.7 H (4.4-11.0) K/mm3 RBC 5.25 (4.2-5.4) M/mm3 Hgb 13.5 (12.0-15.0) g/dl Hct 44.2 (37-47) % MCV 84.2 (81-99) fL MCH 25.7 L (27.0-32.0) pg MCHC 30.5 L (32-36) g/gl RDW 20.1 H (11.6-14.6) % RDW Differential 61.8 H (35.1-43.9) fl Plt Count 410 (150-450) K/mm3 MPV 8.5 (6.2-12.0) fl Immature Gran % (Auto) 0.300 (0.0-0.9) % Neut % (Auto) 82.5 H (47-70) % Lymph % (Auto) 7.1 L (19-41) % [place] % (Auto) 10.0 (0-10) % Eos % (Auto) 0.0 (0-5) % Baso % (Auto) 0.1 (0-1) % Absolute Neuts (auto) 12.1 H (2.0-7.7) X10^3/uL Absolute Lymphs (auto) 1.04 (0.83-4.51) X10^3/ul Total Counted Not Reportable Differential Comment SCANNED Anisocytosis 1+ Sodium 139 (136-145) mmol/L Potassium 4.1 (3.5-5.1) mmol/L Chloride 103 (98-107) mmol/L Carbon Dioxide 25.0 (21.0-32.0) mmol/L Anion Gap 11 (5-15) BUN 27 H (7-18) mg/dL Creatinine 1.07 H (0.55-1.02) mg/dL Estim Creat Clear Calc 37.00 ml/min Est GFR (MDRD) Af Amer 64 (>60) mL/min Est GFR (MDRD) Non-Af 53 L (>60) mL/min BUN/Creatinine Ratio 25.2 H (10-20) RATIO Glucose 130 H (74-106) mg/dL Calcium 9.3 (8.5-10.1) mg/dL Total Bilirubin 0.70 (0.20-1.00) mg/dL AST 28 (15-37) U/L ALT 22 (13-56) U/L Alkaline Phosphatase 119 H (45-117) U/L Total Protein 8.9 H (6.4-8.2) g/dL Albumin 3.6 (3.2-5.0) g/dL Globulin 5.3 H (2.2-4.2) g/dL Albumin/Globulin Ratio 0.7 L (0.9-2.4) RATIO Lipase 47 L (73-393) U/L Clinical Impression(s) from Imaging Studies Abdomen/Pelvis CT 05/30/18 14:28 IMPRESSION: Bowel obstruction that appears to be secondary to a ventral hernia containing a segment of transverse colon. Intrahepatic ductal dilatation that has progressed since the prior examination. Atherosclerosis. Degenerative changes. Electronically Signed: Mely Mccollum MD at 17:21 EDT Tel , Service support , - Medical Decision Making Labs show a leukocytosis of 14.7. Sx improved after morphine and zofran; IVF also given. hog tender over hernia, however it feels improved, soft. CT w/ oral and IV contrast shows bowel obstruction at level of transverse colon where it is seen within the hernia. However, her clinical exam is significantly improved and she no longer is nauseated or vomiting. Discussed with Dr. Rachel who has seen this patient in the past. Given that, he recommends rescanning her in about an hour to see if her bowel gas pattern improves, suggesting the hernia may truly be reduced, and that emergency surgery could be avoided. Will be checked out to oncoming emergency physician at shift change; pt is hemodynamically stable. ED Disposition - Plan for ED Patient: Disposition: [facility] - Main Diagnosis: Ventral hernia with bowel obstruction Referrals: Vicente Raya III, MD [Primary Care Provider] -
--- NOTE | 2018-05-30 15:37 | ED.DCSUM_ITS ---
History of Present Illness Chief Complaint: Abd Pain Informant: Patient, Family Onset: Days - 3 Context: Gradual Onset Timing: Continuous Current Severity: Severe Maximum Severity: Severe Associated Symptoms: n/v - brown bile Narrative: Patient states she has had an incarcerated ventral hernia for the past year or more. She states that yes, she was considered for surgery but considered to be a very poor candidate partially because she was not able to be taken off of Plavix. She states she has continued to have bowel movements, even in the last several days, during which her chronic hernia pain has been a lot worse and she has been vomiting. Bowel movements consist of similar substance that she is vomiting. She denies any blood. She states from time to time she has episodes like these, except this 1 is worse and she is not able to keep down any fluids now. For the last couple days. - Past Medical History (1) Atherosclerosis of coronary artery of [place] heart without angina pectoris Status: Chronic Comment: WGY-CRG-Fybucf LAD and MUSHTAQ to 2 tandem lesions Prox LAD 01/20/2018 WBZ-PTO-Rdda RCA 03/22/13 WGQ-RXQ-Ntfsov RCA 2000 and 2002 (2) Chronic hypoxemic respiratory failure Status: Chronic (3) HTN (hypertension) Status: Chronic (4) History of COPD Status: Chronic (5) History of coronary artery stent placement Status: Chronic Comment: UFW-BBZ-Rzljrq LAD (2.25 X 24 Promus Synergy) and MUSHTAQ to 2 tandem lesions Prox LAD (3.5 X 24 Promus Synergy) 01/20/2018 KVE-ICR-Swmm RCA 03/22/13 AED-VOL-Sajycu RCA 2000 and 2002 (6) History of diabetes mellitus, type II Status: Chronic (7) History of gastroesophageal reflux (GERD) Status: Chronic (8) Hyperlipidemia Status: Chronic (9) Obstructive sleep apnea Status: Chronic (10) Stenosis of left subclavian artery Status: Chronic Comment: stent the left subclavian with a 7 x 39 Poonam (11) VBI (vertebrobasilar insufficiency) Status: Chronic (12) left subclavian artery stent Status: Chronic Past Medical History - Allergies and Home Meds Allergies/Adverse Reactions: Allergies aspirin [ASA] Allergy (Severe, Verified 05/30/18 13:59) Hives bupropion [From Wellbutrin] Allergy (Verified 05/30/18 13:59) Unknown codeine Allergy (Verified 05/30/18 13:59) Unknown meperidine HCl [From Demerol] Allergy (Verified 05/30/18 13:59) Hives naproxen sodium [From Anaprox] Allergy (Verified 05/30/18 13:59) Unknown Penicillins [PCN] Allergy (Verified 05/30/18 13:59) Unknown propoxyphene HCl [From Darvon] Allergy (Verified 05/30/18 13:59) Hives Sulfa (Sulfonamide Antibiotics) Allergy (Verified 05/30/18 13:59) Unknown gabapentin Adverse Reaction (Intermediate, Verified 05/30/18 13:59) Mental status change, foggy headed NSAIDS (Non-Steroidal Anti-Inflamma Adverse Reaction (Verified 05/30/18 13:59) Other Primary Care Physician: Vicente Raya III, MD [Primary Care Provider] - Surgical History: angioplasty, - - 3 heart stents, bariatric surgery and c- section, carotid endarterectemy Lives: Spouse/ Significant Other Smoking Status: Current every day smoker - Family History Maternal Family History: Family History (Last Reviewed 04/27/18 @ 14:45 by Fang Gomez) Mother CVA (cerebral vascular accident) Father Asthma Hypertension High blood cholesterol level Arthritis Family History: Reports: Stroke Review of Systems General: Reports: Malaise. Denies: Chills, Fever, Sweats Eyes: Denies: Visual changes - bilaterally, Diplopia ENT: Denies: Rhinorrhea, Sore throat Cardiovascular: Denies: Chest pain, Palpitations Respiratory: Denies: Dyspnea, Cough, Dyspnea on exertion Gastrointestinal: Reports: Abdominal pain, Nausea, Vomiting, Diarrhea. Denies: Melena, Hematochezia Genitourinary: Denies: Dysuria, Hematuria, Frequency Musculoskeletal: Reports: Back pain - chronic Skin: Denies: Rash, Wounds Neurological: Denies: Headache, Weakness, Numbness Physical Exam Vital Signs/Narrative: Vital Signs Temp Pulse Resp BP Pulse Ox 05/30/18 15:00 101 H 20 H 139/69 H 92 05/30/18 13:51 98.2 F 103 H 20 H 156/102 H 92 Inital Vital Signs reviewed: Yes General: Well nourished, Well developed, Obese, Acute Distress - pain, vomiting Head: Normocephalic, Atraumatic Eyes: Perrl, EOMI ENT: Moist mucous membranes, No rhinorrhea Neck: Supple, Nontender Cardiovascular: Regular rate, Regular rhythm, No murmurs Respiratory: No distress, CTA bilaterally, Chest nontender Abdomen: Soft, Tender - very tender over nonreducible ventral hernia lower abd, Guarding - voluntary, at hernia, Ventral hernia. Negative for: Normal bowel sounds - occasional high-pitched BS around hernia, Rebound tenderness Back: Nontender, Normal Inspection. Negative for: CVA tenderness Extremities: Nontender, No edema Skin: Normal color, No rash Neurological: Alert, Oriented x3, Cranial nerves II-XII grossly intact, Normal Strength, Normal Sensation Psychological: Normal affect, Normal Mood Diagnostic/Tx/Re-eval Laboratory Tests 05/30/18 05/30/18 Range/Units 14:45 14:45 WBC 14.7 H (4.4-11.0) K/mm3 RBC 5.25 (4.2-5.4) M/mm3 Hgb 13.5 (12.0-15.0) g/dl Hct 44.2 (37-47) % MCV 84.2 (81-99) fL MCH 25.7 L (27.0-32.0) pg MCHC 30.5 L (32-36) g/gl RDW 20.1 H (11.6-14.6) % RDW Differential 61.8 H (35.1-43.9) fl Plt Count 410 (150-450) K/mm3 MPV 8.5 (6.2-12.0) fl Immature Gran % (Auto) 0.300 (0.0-0.9) % Neut % (Auto) 82.5 H (47-70) % Lymph % (Auto) 7.1 L (19-41) % [place] % (Auto) 10.0 (0-10) % Eos % (Auto) 0.0 (0-5) % Baso % (Auto) 0.1 (0-1) % Absolute Neuts (auto) 12.1 H (2.0-7.7) X10^3/uL Absolute Lymphs (auto) 1.04 (0.83-4.51) X10^3/ul Total Counted Not Reportable Differential Comment SCANNED Anisocytosis 1+ Sodium 139 (136-145) mmol/L Potassium 4.1 (3.5-5.1) mmol/L Chloride 103 (98-107) mmol/L Carbon Dioxide 25.0 (21.0-32.0) mmol/L Anion Gap 11 (5-15) BUN 27 H (7-18) mg/dL Creatinine 1.07 H (0.55-1.02) mg/dL Estim Creat Clear Calc 37.00 ml/min Est GFR (MDRD) Af Amer 64 (>60) mL/min Est GFR (MDRD) Non-Af 53 L (>60) mL/min BUN/Creatinine Ratio 25.2 H (10-20) RATIO Glucose 130 H (74-106) mg/dL Calcium 9.3 (8.5-10.1) mg/dL Total Bilirubin 0.70 (0.20-1.00) mg/dL AST 28 (15-37) U/L ALT 22 (13-56) U/L Alkaline Phosphatase 119 H (45-117) U/L Total Protein 8.9 H (6.4-8.2) g/dL Albumin 3.6 (3.2-5.0) g/dL Globulin 5.3 H (2.2-4.2) g/dL Albumin/Globulin Ratio 0.7 L (0.9-2.4) RATIO Lipase 47 L (73-393) U/L Clinical Impression(s) from Imaging Studies Abdomen/Pelvis CT 05/30/18 14:28 IMPRESSION: Bowel obstruction that appears to be secondary to a ventral hernia containing a segment of transverse colon. Intrahepatic ductal dilatation that has progressed since the prior examination. Atherosclerosis. Degenerative changes. Electronically Signed: Mely Mccollum MD at 17:21 EDT Tel , Service support , - Medical Decision Making Labs show a leukocytosis of 14.7. Sx improved after morphine and zofran; IVF also given. toe closing machine tender over hernia, however it feels improved, soft. CT w/ oral and IV contrast shows bowel obstruction at level of transverse colon where it is seen within the hernia. However, her clinical exam is significantly improved and she no longer is nauseated or vomiting. Discussed with Dr. Rachel who has seen this patient in the past. Given that, he recommends rescanning her in about an hour to see if her bowel gas pattern improves, suggesting the hernia may truly be reduced, and that emergency surgery could be avoided. Will be checked out to oncoming emergency physician at shift change; pt is hemodynamically stable. ED Disposition - Plan for ED Patient: Disposition: [facility] - Main Diagnosis: Ventral hernia with bowel obstruction Referrals: Vicente Raya III, MD [Primary Care Provider] -
[2018-05-30 16:17] LABS: Mucous, Urine 0 SEEN /hpf (<or=2+); Red Blood Cells-Urine 0 SEEN /hpf (0-5)
[2018-05-30 16:22] LABS: Color, Urine Yellow (Yellow); Glucose, Dipstick Normal (Normal); Ketone-Dipstick 5 mg/dl (Negative); Leukocyte Esterase-Dipstick 25 /ul (Negative); Nitrite-Dipstick Negative (Negative); Occult Blood-Urine Negative /ul (Negative); Protein-Dipstick 100 mg/dl (Negative); Specific Gravity, Urine 1.025 (1.002-1.030); Urine Clarity Clear (Clear); Urine Urobilinogen 1 mg/dl (Normal)
[2018-05-30 16:49] LABS: Urine Bilirubin Dipstick 6 mg/dL (Negative)
[2018-05-30 16:50] LABS: Bacteria 1+ /hpf (None Seen); Hyaline Cast 5-10 SEEN /lpf (0-5); Squamous Epithelial Cells - UA 0-5 SEEN /hpf (5-10); White Blood Cells 0-5 SEEN /hpf (0-5)
[2018-05-30 18:25] VITALS: BP 154/97; PULSE 108; RESP 20; O2SAT 95
--- NOTE | 2018-05-30 19:00 | CT_ITS ---
STUDY: CT ABDOMEN AND PELVIS WITHOUT CONTRAST REASON FOR EXAM: Female, 77 years old. Reevaluate bowel obstruction and possible reduced hernia. RADIATION DOSAGE (If Supplied By Facility): CTDIvol = ( 24.18 ) mGy, DLP = ( 1244.34 ) mGycm TECHNIQUE: Transaxial images were obtained from the dome of the diaphragm to the symphysis pubis without oral contrast, and without intravenous contrast. Sagittal and coronal images were reconstructed. Individualized dose optimization techniques were used for this CT. COMPARISON: CT dated May 30, 2018 at 4:54 PM FINDINGS: There is atelectasis and/or scarring within the right middle lobe. There are coronary artery calcifications present. There is persistent intrahepatic ductal dilatation. There are surgical clips in the gallbladder fossa consistent with a prior cholecystectomy. Normal spleen. Normal pancreas. Normal bilateral adrenal glands. There are right renal cysts. Normal left kidney. There are postsurgical changes of the stomach. There are dilated loops of the small intestine and proximal:. There is a segment of terminal ileum with in a supraumbilical hernia that appears stable and a likely transition point of the obstruction. Normal colon. The appendix is visualized and appears normal. There is diffuse atherosclerotic calcification of the abdominal aorta, without a demonstrated aneurysm. Normal inferior vena cava. Normal retroperitoneum. Normal urinary bladder. There are diffuse degenerative changes of the visualized lumbar spine. CT/Abdomen/Pelvis without Cont IMPRESSION: Persistent bowel obstruction that appears to be secondary to a ventral hernia containing a stable segment of transverse colon. Stable intrahepatic ductal dilatation. Atherosclerosis. Electronically Signed: Mely Mccollum MD at 19:46 EDT Tel , Service support ,
--- NOTE | 2018-05-30 19:59 | ED.RN ---
discussed with pt has nausea. ordered zofran
[2018-05-30 20:07] VITALS: BP 133/81; PULSE 110; RESP 21; O2SAT 95
--- NOTE | 2018-05-30 21:07 | NURSING ---
ACCEPTED TO [place] [id number] [facility] [phone] REPORT
--- NOTE | 2018-05-30 21:19 | PCM.CONS.GEN ---
Reason for Consult Date of Consultation: 05/30/18 Reason for Consultation: bowel obstruction History of Present Illness: The patient is a 77 year old F with a complex medical history including coronary artery disease status post coronary stent placement on January 20, 2018 with 2 drug-eluting stents in tandem lesions in the proximal to distal LAD. She has a previous history of additional coronary stents placed, she has a history of a left subclavian artery stent. History of right carotid endarterectomy. History of chronic hypoxic respiratory failure, stage II COPD, tobacco use, diabetes, morbid obesity with a history of a previous gastric bypass surgery. The patient presents with relatively chronic upper midline pain at the site of incisional hernia. For the past few days, she is noted increasing pain and now nausea and vomiting. She has similar episode in January 2 weeks following her stent placement. She was transferred to [facility] for observation and possible emergency surgery. The patient seemed to have resolution of her symptoms of pain and obstruction at that hospitalization. Her psychic reader is recommended she be maintained on Plavix given the location of stents for at least 6 months.in April she was admitted for pneumonia-bibasilar izipaaekn-pekpkjav-N had seen her at that hospitalization iron deficiency anemia. Colonoscopy was performed which demonstrated liquid stool throughout the colon without any obvious abnormalities.upper endoscopy demonstrated normal-appearing jejunum a Ayanna-en-Y gastrojejunostomy with healthy-appearing mucosa and normal appearing esophagus without obvious source or sign of bleeding. Presents emerged from with the above complaints. She denies hematochezia or other difficulties. WBC count through the emergency department returned as 14.7with a left shift. CT scan of the abdomen and pelvis was obtained which demonstrated her known hernia with what appears to be a loop of bowel partially within the hernia now with all distention leading up to this hernia site. the emergency physician felt that the site was softer. A repeat CT scan demonstrated still a bowel obstructive pattern. This was initially interpreted as: Within the hernia defect but on second CAT scan was felt to be consistent with a loop of small bowel near her previous Ayanna-en-Y enteric anastomosis. Past Medical History Past Medical History (Chronic Problems): Chronic Problems (Last Reviewed 04/27/18 @ 14:45 by Fang Gomez) Hyperlipidemia (Chronic) VBI (vertebrobasilar insufficiency) (Chronic) Stage 2 moderate COPD by GOLD classification (Chronic) Chronic hypoxemic respiratory failure (Chronic) History of right-sided carotid endarterectomy (Chronic ~07/2014) left subclavian artery stent (Chronic ~03/2017) Stenosis of left subclavian artery (Chronic ~03/2017) stent the left subclavian with a 7 x 39 Poonam History of coronary artery stent placement (Chronic 01/20/18) TMJ-NTU-Sokmzd LAD (2.25 X 24 Promus Synergy) and MUSHTAQ to 2 tandem lesions Prox LAD (3.5 X 24 Promus Synergy) 01/20/2018 PCI-ETK-Bmnq RCA 03/22/13 RSN-ZXL-Slmafs RCA 2000 and 2002 Atherosclerosis of coronary artery of [place] heart without angina pectoris (Chronic) XGW-GFA-Hgeuib LAD and MUSHTAQ to 2 tandem lesions Prox LAD 01/20/2018 LCB-RQW-Vqur RCA 03/22/13 BCS-FLO-Sxpwco RCA 2000 and 2002 Asthma (Chronic) HTN (hypertension) (Chronic) Tobacco abuse (Chronic) Obesities, morbid (Chronic) History of COPD (Chronic) History of diabetes mellitus, type II (Chronic) History of gastroesophageal reflux (GERD) (Chronic) Obstructive sleep apnea (Chronic) Medical History: Medical History (Last Reviewed 04/27/18 @ 14:45 by Fang Gomez) Hyperlipidemia (Chronic) E78.5 Stenosis of left subclavian artery (Chronic) Onset Date: ~03/2017 I77.1 stent the left subclavian with a 7 x 39 Poonam Atherosclerosis of coronary artery of [place] heart without angina pectoris (Chronic) I25.10 ZWT-LOY-Gzbkul LAD and MUSHTAQ to 2 tandem lesions Prox LAD 01/20/2018 DDN-BNL-Ykyz RCA 03/22/13 UVJ-OWF-Xufjdt RCA 2000 and 2002 Asthma (Chronic) J45.909 HTN (hypertension) (Chronic) I10 Tobacco abuse (Chronic) Z72.0 History of COPD (Chronic) Z87.09 History of diabetes mellitus, type II (Chronic) Z86.39 History of gastroesophageal reflux (GERD) (Chronic) Z87.19 Obstructive sleep apnea (Chronic) G47.33 Carotid artery stenosis I65.29 Allergies aspirin [ASA] Allergy (Severe, Verified 05/30/18 13:59) Hives bupropion [From Wellbutrin] Allergy (Verified 05/30/18 13:59) Unknown codeine Allergy (Verified 05/30/18 13:59) Unknown meperidine HCl [From Demerol] Allergy (Verified 05/30/18 13:59) Hives naproxen sodium [From Anaprox] Allergy (Verified 05/30/18 13:59) Unknown Penicillins [PCN] Allergy (Verified 05/30/18 13:59) Unknown propoxyphene HCl [From Darvon] Allergy (Verified 05/30/18 13:59) Hives Sulfa (Sulfonamide Antibiotics) Allergy (Verified 05/30/18 13:59) Unknown gabapentin Adverse Reaction (Intermediate, Verified 05/30/18 13:59) Mental status change, foggy headed NSAIDS (Non-Steroidal Anti-Inflamma Adverse Reaction (Verified 05/30/18 13:59) Other Home Medications: Ambulatory Orders Medication Instructions Recorded Budesonide/Formoterol 80-4.5 2 puff INHALATION BID 02/28/13 [Symbicort 80-4.5 Mcg Inhaler] Citalopram [Celexa] 20 mg PO DAILY 02/28/13 Fluticasone 0.05% [Flonase Nasal 2 spray NASAL DAILY PRN 02/28/13 [place]] Montelukast [Singulair] 10 mg PO QHS 07/08/14 Albuterol IH (ProAir) [Proair Hfa] 2 puff INHALATION Q6H PRN PRN 07/15/14 Atorvastatin Calcium [Lipitor] 40 mg PO QHS #30 tab 10/03/16 Tolterodine Tartrate [Detrol LA] 4 mg PO DAILY 11/18/17 furosemide 20 mg tablet 20 mg PO DAILY #30 tab 12/12/17 nitroglycerin 0.4 mg sublingual 0.4 mg SUBLINGUAL Q5M PRN #25 tab 12/12/17 tablet Cholecalciferol (Vitamin D3) 1,000 unit PO DAILY 12/22/17 [Vitamin D3] Hydrocodone/Acetaminophen 1 tab PO BID PRN PRN 12/22/17 [Hydrocodone-Acetamin 5-325 mg] clopidogrel 75 mg tablet 75 mg PO BID #60 tab 12/23/17 omeprazole 40 mg capsule,delayed 40 mg PO DAILY 02/14/18 release pramipexole 1 mg tablet 1 mg PO TID PRN tab 02/14/18 ferrous gluconate 324 mg (37.5 mg 325 mg PO DAILY tab 04/27/18 iron) tablet Surgical History: Surgical History (Last Reviewed 04/27/18 @ 14:45 by Fang Gomez) History of right-sided carotid endarterectomy (Chronic) Onset Date: ~07/2014 Z98.890 left subclavian artery stent (Chronic) Onset Date: ~03/2017 History of coronary artery stent placement (Chronic) Onset Date: 01/20/18 Z95.5 JQX-FZQ-Fdwiwm LAD (2.25 X 24 Promus Synergy) and MUSHTAQ to 2 tandem lesions Prox LAD (3.5 X 24 Promus Synergy) 01/20/2018 XIO-RQX-Bkhz RCA 03/22/13 RWM-UOQ-Ylwttk RCA 2000 and 2002 History of right knee joint replacement Z96.651 History of section Z98.891 History of cholecystectomy Z98.890, Z90.49 H/O bariatric surgery (Inactive) Z98.84 Surgical History: angioplasty, - - 3 heart stents, bariatric surgery and , carotid endarterectemy Lives: Spouse/ Significant Other Smoking Status: Current every day smoker - *Family History Maternal Family History: Family History (Last Reviewed 04/27/18 @ 14:45 by Fang Gomez) Mother CVA (cerebral vascular accident) Father Asthma Hypertension High blood cholesterol level Arthritis History Items: Stroke - Physical Exam General: Alert, Oriented x3, Cooperative Lungs: Clear to auscultation, Normal air movement Cardiovascular: Regular rate, No murmurs Abdomen: Bowel Sounds Present, Soft, Tender - tender in the upper midline at the expected location of the hernia without obvious palpable hernia defect being able to appreciated. Patient is morbidly obese. Vital Signs Temp Pulse Resp BP Pulse Ox 98.2 F 110 H 21 H 133/81 H 95 05/30/18 13:51 05/30/18 20:07 05/30/18 20:07 05/30/18 20:07 05/30/18 20:07 Oxygen Flow Rate (L/min) 3.5 Oxygen Delivery Method Nasal Cannula Weight: 117.027 kg Body Mass Index (BMI) 45.7 Finger Stick Blood Glucose 88 Laboratory Tests Past 24 Hrs 05/30/18 05/30/18 05/30/18 14:45 14:45 16:12 WBC 14.7 H RBC 5.25 Hgb 13.5 Hct 44.2 MCV 84.2 MCH 25.7 L MCHC 30.5 L RDW 20.1 H RDW Differential 61.8 H Plt Count 410 MPV 8.5 Immature Gran % (Auto) 0.300 Neut % (Auto) 82.5 H Lymph % (Auto) 7.1 L [place] % (Auto) 10.0 Eos % (Auto) 0.0 Baso % (Auto) 0.1 Absolute Neuts (auto) 12.1 H Absolute Lymphs (auto) 1.04 Total Counted Not Reportable Differential Comment SCANNED Anisocytosis 1+ Sodium 139 Potassium 4.1 Chloride 103 Carbon Dioxide 25.0 Anion Gap 11 BUN 27 H Creatinine 1.07 H Estim Creat Clear Calc 37.00 Est GFR (MDRD) Af Amer 64 Est GFR (MDRD) Non-Af 53 L BUN/Creatinine Ratio 25.2 H Glucose 130 H Calcium 9.3 Total Bilirubin 0.70 AST 28 ALT 22 Alkaline Phosphatase 119 H Total Protein 8.9 H Albumin 3.6 Globulin 5.3 H Albumin/Globulin Ratio 0.7 L Lipase 47 L Urine Color Yellow Urine Clarity Clear Urine pH 5.0 Ur Specific [place] 1.025 Urine Protein 100 H Urine Glucose (UA) Normal Urine Ketones 5 H Urine Occult Blood Negative Urine Nitrite Negative Urine Bilirubin 6 H Urine Urobilinogen 1 H Ur Leukocyte Esterase 25 H Urine RBC 0 SEEN Urine WBC 0-5 SEEN Ur Squamous Epith Cells 0-5 SEEN Urine Bacteria 1+ Hyaline Casts 5-10 SEEN Urine Mucus 0 SEEN Assessment/Plan All Active Problems (Last Reviewed 04/27/18 @ 14:45 by Fang Gomez) Ventral hernia with bowel obstruction (Acute) chronic ventral hernia now with nausea, vomiting, proximal bowel distention and elevated white blood cell count, morbid obesity, complex medical history I spoke with my anesthesiologist who given the patient's comorbidities is not comfortable performing surgery on this patient locally in less this is an absolute emergency. Given the fact she is currently stable I therefore recommend transfer to tertiary care center.
--- NOTE | 2018-05-30 21:25 | CON.PCM_ITS ---
Reason for Consult Date of Consultation: 05/30/18 Reason for Consultation: bowel obstruction History of Present Illness: The patient is a 77 year old F with a complex medical history including coronary artery disease status post coronary stent placement on January 20, 2018 with 2 drug-eluting stents in tandem lesions in the proximal to distal LAD. She has a previous history of additional coronary stents placed, she has a history of a left subclavian artery stent. History of right carotid endarterectomy. History of chronic hypoxic respiratory failure, stage II COPD, tobacco use, diabetes, morbid obesity with a history of a previous gastric bypass surgery. The patient presents with relatively chronic upper midline pain at the site of incisional hernia. For the past few days, she is noted increasing pain and now nausea and vomiting. She has similar episode in January 2 weeks following her stent placement. She was transferred to [facility] for observation and possible emergency surgery. The patient seemed to have resolution of her symptoms of pain and obstruction at that hospitalization. Her masking machine operator is recommended she be maintained on Plavix given the location of stents for at least 6 months.in April she was admitted for pneumonia-bi basilar fobrohnxd-kxaynuqd-F had seen her at that hospitalization iron deficiency anemia. Colonoscopy was performed which demonstrated liquid stool throughout the colon without any obvious abnormalities.upper endoscopy demonstrated normal-appearing jejunum a Ayanna-en-Y gastrojejunostomy with healthy-appearing mucosa and normal appearing esophagus without obvious source or sign of bleeding. Presents emerged from with the above complaints. She denies hematochezia or other difficulties. WBC count through the emergency department returned as 14.7with a left shift. CT scan of the abdomen and pelvis was obtained which demonstrated her known hernia with what appears to be a loop of bowel partially within the hernia now with all distention leading up to this hernia site. the emergency physician felt that the site was softer. A repeat CT scan demonstrated still a bowel obstructive pattern. This was initially interpreted as: Within the hernia defect but on second CAT scan was felt to be consistent with a loop of small bowel near her previous Ayanna-en-Y enteric anastomosis. Past Medical History Past Medical History (Chronic Problems): Chronic Problems (Last Reviewed 04/27/18 @ 14:45 by Fang Gomez) Hyperlipidemia (Chronic) VBI (vertebrobasilar insufficiency) (Chronic) Stage 2 moderate COPD by GOLD classification (Chronic) Chronic hypoxemic respiratory failure (Chronic) History of right-sided carotid endarterectomy (Chronic ~07/2014) left subclavian artery stent (Chronic ~03/2017) Stenosis of left subclavian artery (Chronic ~03/2017) stent the left subclavian with a 7 x 39 [place] History of coronary artery stent placement (Chronic 01/20/18) SGT-QKV-Mtpfxa LAD (2.25 X 24 Promus Synergy) and MUSHTAQ to 2 tandem lesions Prox LAD (3.5 X 24 Promus Synergy) 01/20/2018 QBO-UNX-Kfwd RCA 03/22/13 WYR-RKT-Nanqgq RCA 2000 and 2002 Atherosclerosis of coronary artery of iroquois heart without angina pectoris (Chronic) ZIG-KVA-Jwphbe LAD and MUSHTAQ to 2 tandem lesions Prox LAD 01/20/2018 XBT-CTV-Mlvd RCA 03/22/13 HCK-DSX-Bqflrr RCA 2000 and 2002 Asthma (Chronic) HTN (hypertension) (Chronic) Tobacco abuse (Chronic) Obesities, morbid (Chronic) History of COPD (Chronic) History of diabetes mellitus, type II (Chronic) History of gastroesophageal reflux (GERD) (Chronic) Obstructive sleep apnea (Chronic) Medical History: Medical History (Last Reviewed 04/27/18 @ 14:45 by Fang Gomez) Hyperlipidemia (Chronic) E78.5 Stenosis of left subclavian artery (Chronic) Onset Date: ~03/2017 I77.1 stent the left subclavian with a 7 x 39 [place]am Atherosclerosis of coronary artery of iroquois heart without angina pectoris (Chronic) I25.10 WPB-KKK-Ehugqf LAD and MUSHTAQ to 2 tandem lesions Prox LAD 01/20/2018 PAQ-QJD-Tpuu RCA 03/22/13 ULG-VKF-Mqthmo RCA 2000 and 2002 Asthma (Chronic) J45.909 HTN (hypertension) (Chronic) I10 Tobacco abuse (Chronic) Z72.0 History of COPD (Chronic) Z87.09 History of diabetes mellitus, type II (Chronic) Z86.39 History of gastroesophageal reflux (GERD) (Chronic) Z87.19 Obstructive sleep apnea (Chronic) G47.33 Carotid artery stenosis I65.29 Allergies aspirin [ASA] Allergy (Severe, Verified 05/30/18 13:59) Hives bupropion [From Wellbutrin] Allergy (Verified 05/30/18 13:59) Unknown codeine Allergy (Verified 05/30/18 13:59) Unknown meperidine HCl [From Demerol] Allergy (Verified 05/30/18 13:59) Hives naproxen sodium [From Anaprox] Allergy (Verified 05/30/18 13:59) Unknown Penicillins [PCN] Allergy (Verified 05/30/18 13:59) Unknown propoxyphene HCl [From Darvon] Allergy (Verified 05/30/18 13:59) Hives Sulfa (Sulfonamide Antibiotics) Allergy (Verified 05/30/18 13:59) Unknown gabapentin Adverse Reaction (Intermediate, Verified 05/30/18 13:59) Mental status change, foggy headed NSAIDS (Non-Steroidal Anti-Inflamma Adverse Reaction (Verified 05/30/18 13:59) Other Home Medications: Ambulatory Orders Medication Instructions Recorded Budesonide/Formoterol 80-4.5 2 puff INHALATION BID 02/28/13 [Symbicort 80-4.5 Mcg Inhaler] Citalopram [Celexa] 20 mg PO DAILY 02/28/13 Fluticasone 0.05% [Flonase Nasal 2 spray NASAL DAILY PRN 02/28/13 [place]] Montelukast [Singulair] 10 mg PO QHS 07/08/14 Albuterol IH (ProAir) [Proair Hfa] 2 puff INHALATION Q6H PRN PRN 07/15/14 Atorvastatin Calcium [Lipitor] 40 mg PO QHS #30 tab 10/03/16 Tolterodine Tartrate [Detrol LA] 4 mg PO DAILY 11/18/17 furosemide 20 mg tablet 20 mg PO DAILY #30 tab 12/12/17 nitroglycerin 0.4 mg sublingual 0.4 mg SUBLINGUAL Q5M PRN #25 tab 12/12/17 tablet Cholecalciferol (Vitamin D3) 1,000 unit PO DAILY 12/22/17 [Vitamin D3] Hydrocodone/Acetaminophen 1 tab PO BID PRN PRN 12/22/17 [Hydrocodone-Acetamin 5-325 mg] clopidogrel 75 mg tablet 75 mg PO BID #60 tab 12/23/17 omeprazole 40 mg capsule,delayed 40 mg PO DAILY 02/14/18 release pramipexole 1 mg tablet 1 mg PO TID PRN tab 02/14/18 ferrous gluconate 324 mg (37.5 mg 325 mg PO DAILY tab 04/27/18 iron) tablet Surgical History: Surgical History (Last Reviewed 04/27/18 @ 14:45 by Fang Gomez) History of right-sided carotid endarterectomy (Chronic) Onset Date: ~07/2014 Z98.890 left subclavian artery stent (Chronic) Onset Date: ~03/2017 History of coronary artery stent placement (Chronic) Onset Date: 01/20/18 Z95.5 KWC-OMJ-Cfqqft LAD (2.25 X 24 Promus Synergy) and MUSHTAQ to 2 tandem lesions Prox LAD (3.5 X 24 Promus Synergy) 01/20/2018 BIT-CBR-Ilva RCA 03/22/13 KSQ-YGH-Rsbfkd RCA 2000 and 2002 History of right knee joint replacement Z96.651 History of section Z98.891 History of cholecystectomy Z98.890, Z90.49 H/O bariatric surgery (Inactive) Z98.84 Surgical History: angioplasty, - - 3 heart stents, bariatric surgery and c- section, carotid endarterectemy Lives: Spouse/ Significant Other Smoking Status: Current every day smoker - *Family History Maternal Family History: Family History (Last Reviewed 04/27/18 @ 14:45 by Fang Gomez) Mother CVA (cerebral vascular accident) Father Asthma Hypertension High blood cholesterol level Arthritis History Items: Stroke - Physical Exam General: Alert, Oriented x3, Cooperative Lungs: Clear to auscultation, Normal air movement Cardiovascular: Regular rate, No murmurs Abdomen: Bowel Sounds Present, Soft, Tender - tender in the upper midline at the expected location of the hernia without obvious palpable hernia defect being able to appreciated. Patient is morbidly obese. Vital Signs Temp Pulse Resp BP Pulse Ox 98.2 F 110 H 21 H 133/81 H 95 05/30/18 13:51 05/30/18 20:07 05/30/18 20:07 05/30/18 20:07 05/30/18 20:07 Oxygen Flow Rate (L/min) 3.5 Oxygen Delivery Method Nasal Cannula Weight: 117.027 kg Body Mass Index (BMI) 45.7 Finger Stick Blood Glucose 88 Laboratory Tests Past 24 Hrs 05/30/18 05/30/18 05/30/18 14:45 14:45 16:12 WBC 14.7 H RBC 5.25 Hgb 13.5 Hct 44.2 MCV 84.2 MCH 25.7 L MCHC 30.5 L RDW 20.1 H RDW Differential 61.8 H Plt Count 410 MPV 8.5 Immature Gran % (Auto) 0.300 Neut % (Auto) 82.5 H Lymph % (Auto) 7.1 L [place] % (Auto) 10.0 Eos % (Auto) 0.0 Baso % (Auto) 0.1 Absolute Neuts (auto) 12.1 H Absolute Lymphs (auto) 1.04 Total Counted Not Reportable Differential Comment SCANNED Anisocytosis 1+ Sodium 139 Potassium 4.1 Chloride 103 Carbon Dioxide 25.0 Anion Gap 11 BUN 27 H Creatinine 1.07 H Estim Creat Clear Calc 37.00 Est GFR (MDRD) Af Amer 64 Est GFR (MDRD) Non-Af 53 L BUN/Creatinine Ratio 25.2 H Glucose 130 H Calcium 9.3 Total Bilirubin 0.70 AST 28 ALT 22 Alkaline Phosphatase 119 H Total Protein 8.9 H Albumin 3.6 Globulin 5.3 H Albumin/Globulin Ratio 0.7 L Lipase 47 L Urine Color Yellow Urine Clarity Clear Urine pH 5.0 Ur Specific [place] 1.025 Urine Protein 100 H Urine Glucose (UA) Normal Urine Ketones 5 H Urine Occult Blood Negative Urine Nitrite Negative Urine Bilirubin 6 H Urine Urobilinogen 1 H Ur Leukocyte Esterase 25 H Urine RBC 0 SEEN Urine WBC 0-5 SEEN Ur Squamous Epith Cells 0-5 SEEN Urine Bacteria 1+ Hyaline Casts 5-10 SEEN Urine Mucus 0 SEEN Assessment/Plan All Active Problems (Last Reviewed 04/27/18 @ 14:45 by Fang Gomez) Ventral hernia with bowel obstruction (Acute) chronic ventral hernia now with nausea, vomiting, proximal bowel distention and elevated white blood cell count, morbid obesity, complex medical history I spoke with my anesthesiologist who given the patient's comorbidities is not comfortable performing surgery on this patient locally in less this is an absolute emergency. Given the fact she is currently stable I therefore recommend transfer to tertiary care center.
== END 2018-05-30 21:58 | disposition short-term general hospital (02) ==
PROVIDERS: Emergency Provider Emergency Medicine; Family Provider Family Medicine; PCP Family Medicine
DX: K43.6 Other and unspecified ventral hernia with obstruction, without gangrene (principal); G45.0 Vertebro-basilar artery syndrome; G47.33 Obstructive sleep apnea (adult) (pediatric); E78.5 Hyperlipidemia, unspecified; K21.9 Gastro-esophageal reflux disease without esophagitis; E11.9 Type 2 diabetes mellitus without complications; I10 Essential (primary) hypertension; J96.11 Chronic respiratory failure with hypoxia; J44.9 Chronic obstructive pulmonary disease, unspecified; I25.10 Atherosclerotic heart disease of native coronary artery without angina pectoris; D72.829 Elevated white blood cell count, unspecified; F17.200 Nicotine dependence, unspecified, uncomplicated; Z95.5 Presence of coronary angioplasty implant and graft; Z98.84 Bariatric surgery status; Z90.49 Acquired absence of other specified parts of digestive tract; E66.01 Morbid (severe) obesity due to excess calories; Z68.42 Body mass index [BMI] 45.0-49.9, adult
CPT/HCPCS: 74176; 74177; 80053; 81001; 83690; 85025; 96361; 96374; 96375; 96376; 99285; J7030; Q9967; A4216; J2405

== ENCOUNTER 2018-06-28 23:02 | Observation (INO) | payer MEDICARE, SELFPAY ==
[2017-12-22 12:49] VITALS: BMI 49.4
[2018-06-28 23:04] VITALS: BP 102/66; PULSE 88; RESP 28; TEMP 37.3; O2SAT 93; BMI 47.0
--- NOTE | 2018-06-28 23:19 | EKG12_ITS ---
Test Reason : GEN ILLNESS Blood Pressure : / mmHG Vent. Rate : 079 BPM Atrial Rate : 079 BPM P-R Int : 154 ms QRS Dur : 088 ms QT Int : 374 ms P-R-T Axes : 046 056 104 degrees QTc Int : 428 ms Normal sinus rhythm Nonspecific ST and T wave abnormality Abnormal ECG Confirmed by STEFANIE LEI, SUMA ([id number]), design editor ANDIE GARY ([id number]) on 07/03/2018 10:19:45 AM Referred By: Omer Hoffman Confirmed By:SUMA WATTS MD
--- NOTE | 2018-06-28 23:26 | RAD_ITS ---
STUDY: X-RAY CHEST REASON FOR EXAM: Female, 77 years old. Shortness of breath. TECHNIQUE: Single AP portable view of the chest. COMPARISON: April 19, 2018 FINDINGS: The lungs are hyperexpanded. There is bilateral basilar airspace consolidation and atelectasis. There is no demonstrated pleural abnormality. There is mild cardiac enlargement. Normal mediastinum and chloe. There is prominence of the pulmonary hilar arteries with peripheral pulmonary vascular congestion. There is atherosclerotic calcification of the aortic arch with tortuosity. There are diffuse degenerative changes of the visualized thoracic spine. There are degenerative changes of both shoulders. There is no demonstrated abnormality of the visualized soft tissue structures of the upper abdomen. RAD/Chest 1 View (Portable) IMPRESSION: 1. Cardiomegaly and mild pulmonary congestion. 2. Bilateral basilar air space consolidation and/or atelectasis may represent pneumonia.. Electronically Signed: Maru Pillai MD at 23:55 EDT , Service support ,
[2018-06-28 23:30] VITALS: PULSE 84; RESP 20
[2018-06-28] MEDS: Ipratropium/Albuterol Sulfate 3 ML AMPUL.NEB INHALATION (23:30)
[2018-06-28 23:47] VITALS: O2SAT 80
[2018-06-28 23:49] VITALS: O2SAT 95
[2018-06-28] MEDS: 0.9% Normal Saline 1,000 ML 150 ML IV (23:52)
[2018-06-28 23:53] VITALS: RESP 24; RESP 26; O2SAT 82; O2SAT 96
--- NOTE | 2018-06-28 23:54 | ED.RN ---
PT PULSE OX 82% ON ROOM AIR WITH GOOD WAVEFORM. PT ADVISED STAFF SHE WEARS 3L O2 AT NIGHT. PT PLACED ON NC 3L. DR LEE NOTIFIED
[2018-06-28 23:58] LABS: Absolute Neutrophil Count 4.6 X10^3/uL (2.0-7.7); Basophil# 0.03 X10^3/uL; Basophil% 0.4 % (0-1); Eosinophil# 0.01 X10^3/uL; Eosinophils% 0.1 % (0-5); Hematocrit 35.4 % (37-47); Lymphocyte % 19.3 % (19-41); Mean Corp Hgb Conc 31.1 g/gl (32-36); Mean Corpuscular Hgb 26.1 pg (27.0-32.0); Mean Corpuscular Volume 84.1 fL (81-99); Mean Platelet Vol. 8.5 fl (6.2-12.0); Monocyte# 0.77 X10^3/uL; Monocyte% 11.4 % (0-10); Neutrophil # 4.58 X10^3/uL (2.7-7.7); Neutrophil % 68.1 % (47-70); Platelet Count 217 K/mm3 (150-450); RBC Distribution Width CV 21.9 % (11.6-14.6); RBC Distribution Width SD 65.2 fl (35.1-43.9); Red Blood Count 4.21 M/mm3 (4.2-5.4); White Blood Count 6.7 K/mm3 (4.4-11.0)
[2018-06-29] VITALS (12 sets, daily range): BP systolic 92–120; BP diastolic 47–60; PULSE 72–89; RESP 16–25; TEMP 36.6–37.8; O2SAT 93–96; BMI 45.6; BMI 45.7
[2018-06-29 00:02] LABS: Differential Indicated SCAN CRITERIA MET; POSITIVE COUNT NO; POSITIVE DIFFERENTIAL NO; POSITIVE MORPHOLOGY YES
[2018-06-29 00:20] LABS: Anion Gap 6 (5-15); BUN 17 mg/dL (7-18); BUN/Creat Ratio 20.9 RATIO (10-20); Calcium,Total 7.5 mg/dL (8.5-10.1); Chloride 104 mmol/L (98-107); Creatinine, Serum 0.81 mg/dL (0.55-1.02); EST Glomerular Filtration Rate 73 mL/min (>60); Est Glom Filt Rate - Afr Amer 88 mL/min (>60); Estimated Creatinine Clearance 46.73 ml/min; Glucose 93 mg/dL (74-106); Potassium 3.4 mmol/L (3.5-5.1); Sodium Level 139 mmol/L (136-145)
[2018-06-29 00:23] LABS: Differential Comment SCANNED
[2018-06-29] MEDS: levoFLOXacin IV 750 MG/150 ML BAG 100 MG IV (00:35)
[2018-06-29 00:53] LABS: BNP,B-Type NATRIURETIC PEPTIDE 67.8 pg/mL (0-100)
--- NOTE | 2018-06-29 01:13 | ED.DCSUM_ITS ---
- ER Visit Summary Date of Service: 06/29/18 Chief Complaint: Cough, shortness of breath History of Present Illness: The patient is a 77 F who reports getting the GI bug 4 days ago. She had diarrhea for the first 2 days. Then 2 days ago she developed cough with white sputum, shortness of breath, and mild wheezing. She does have home oxygen that she typically wears at night. She states she been wearing it throughout the day as well and has been using her aerosols more than normal. She denies having fever. She was admitted in April for pneumonia and states this feels similar. Physical Examination: Blood pressure is 102/66, temperature 99.2, heart rate 88, respiratory rate 28, pulse ox 93% on room air. When nursing staff went to put her on the monitor in the room her pulse ox was reading 82% on room air. She was placed on 3 L nasal cannula and O2 sats jean to the mid 90s. Patient is sitting upright in bed. She is in no acute distress. Head neck examination reveals moist mucous membranes. Heart is regular rate and rhythm. Lung sounds with mild expiratory wheezes throughout. Abdomen is soft and nontender. Test Results: EKG is sinus at 79 with no sign of acute ischemia. Portable chest x-ray shows cardiomegaly and mild pulmonary congestion. Bilateral basilar airspace consolidation and/or atelectasis is noted which may represent pneumonia. CBC was normal white count. Hemoglobin is 11. Chemistry studies significant only for potassium 3.4. BNP is normal at 67. Lactate is normal. Blood cultures were obtained. Influenza swab is positive for flu A. Emergency Department Course and Treatment: Patient was given DuoNeb treatment along with IV Levaquin. Following completion of the influenza swab she was given a dose of Tamiflu. Prior to transfer to the floor temperature was 100.0. She was given Tylenol. On repeat exam patient felt that her breathing was improved after the breathing treatment. Vital signs on admission include blood pressure 106/54, heart rate 81, respiratory rate 21, pulse ox 96% on 3 L. Treatment Plan: [] Disposition: Admit Impression: 1. Influenza A 2. Pneumonia This note was generated with Events [employer]ation software. It may contain incorrect words, spelling, and punctuation that were not noted in review of the chart prior to signing ED Disposition - Plan for ED Patient: Disposition: Acute Care [facility]
[2018-06-29] MEDS: Oseltamivir Phosphate 75 MG Capsule PO (01:20)
--- NOTE | 2018-06-29 01:31 | PCM.HP.STD ---
Problem List (1) Influenza A Status: Acute (2) Bilateral pneumonia Status: Acute History of Present Illness Date of Admission: 06/29/18 Chief Complaint: shortness of breath The patient is a 77 year old F with a significant history of COPD; tobacco abuse; morbid obesity;CAD status post stents; diabetes mellitus; hypertension; and obstructive sleep apnea who presented with progressively worsening shortness of breath at rest and which increases markedly with exertion. At baseline patient uses 3 L/min of nasal cannula at night and as needed. However in the last couple of days patient has been using her oxygen all the time; and also has been using more of her breathing treatment. Associated with her symptoms is productive cough. He described a copious sputum which is stringy. Emergency department doctor reported that on room air patient was 82% at the emergency department; and on 3 L her oxygen improved into the 90s. Emergency department doctor reported the patient was having expiratory wheezes on examination. Patient reported that her symptoms started with a headache 6 days ago. Any time she coughed her headache increased excessively. Also she reports being fatigue to the point that she gets severely exhausted when she walk for short distances. Further she reports diarrhea that lasted for 2 days and now is resolved. She reports nausea without vomiting. At the Emergency department patient was found to be positive for influenza for which reason Tamiflu was started. Also a chest x-ray showed radiographic evidence of bilateral infiltrates. Patient was diagnosed with pneumonia and started on Levaquin. Past Medical History Past Medical History (Chronic Problems): Chronic Problems (Last Reviewed 06/29/18 @ 03:45 by Omer Hoffman MD) Hyperlipidemia (Chronic) VBI (vertebrobasilar insufficiency) (Chronic) Stage 2 moderate COPD by GOLD classification (Chronic) Chronic hypoxemic respiratory failure (Chronic) History of right-sided carotid endarterectomy (Chronic ~07/2014) left subclavian artery stent (Chronic ~03/2017) Stenosis of left subclavian artery (Chronic ~03/2017) stent the left subclavian with a 7 x 39 [place] History of coronary artery stent placement (Chronic 01/20/18) POE-GGQ-Ceawxv LAD (2.25 X 24 Promus Synergy) and MUSHTAQ to 2 tandem lesions Prox LAD (3.5 X 24 Promus Synergy) 01/20/2018 TVH-GWR-Evsd RCA 03/22/13 CIJ-XPM-Xojlxg RCA 2000 and 2002 Atherosclerosis of coronary artery of [place] heart without angina pectoris (Chronic) CLJ-JWI-Ckkgrv LAD and MUSHTAQ to 2 tandem lesions Prox LAD 01/20/2018 NUR-RPA-Nltf RCA 03/22/13 VCY-UUZ-Wxyybo RCA 2000 and 2002 Asthma (Chronic) HTN (hypertension) (Chronic) Tobacco abuse (Chronic) Obesities, morbid (Chronic) History of COPD (Chronic) History of diabetes mellitus, type II (Chronic) History of gastroesophageal reflux (GERD) (Chronic) Obstructive sleep apnea (Chronic) Medical History: Medical History (Last Reviewed 06/29/18 @ 03:45 by Omer Hoffman MD) Hyperlipidemia (Chronic) E78.5 Stenosis of left subclavian artery (Chronic) Onset Date: ~03/2017 I77.1 stent the left subclavian with a 7 x 39 [place]am Atherosclerosis of coronary artery of [place] heart without angina pectoris (Chronic) I25.10 SMA-DRV-Vtmwyr LAD and MUSHTAQ to 2 tandem lesions Prox LAD 01/20/2018 NGQ-EMN-Zfgw RCA 03/22/13 QBX-MFL-Pepqja RCA 2000 and 2002 Asthma (Chronic) J45.909 HTN (hypertension) (Chronic) I10 Tobacco abuse (Chronic) Z72.0 History of COPD (Chronic) Z87.09 History of diabetes mellitus, type II (Chronic) Z86.39 History of gastroesophageal reflux (GERD) (Chronic) Z87.19 Obstructive sleep apnea (Chronic) G47.33 Carotid artery stenosis I65.29 Allergies aspirin [ASA] Allergy (Severe, Verified 06/28/18 23:07) Hives bupropion [From Wellbutrin] Allergy (Verified 06/28/18 23:07) Unknown codeine Allergy (Verified 06/28/18 23:07) Unknown meperidine HCl [From Demerol] Allergy (Verified 06/28/18 23:07) Hives naproxen sodium [From Anaprox] Allergy (Verified 06/28/18 23:07) Unknown propoxyphene HCl [From Darvon] Allergy (Verified 06/28/18 23:07) Hives Sulfa (Sulfonamide Antibiotics) Allergy (Verified 06/28/18 23:07) Unknown gabapentin Adverse Reaction (Intermediate, Verified 06/28/18 23:07) Mental status change, foggy headed NSAIDS (Non-Steroidal Anti-Inflamma Adverse Reaction (Verified 06/28/18 23:07) Other Home Medications: Ambulatory Orders Medication Instructions Recorded Budesonide/Formoterol 80-4.5 2 puff INHALATION BID 02/28/13 [Symbicort 80-4.5 Mcg Inhaler] Citalopram [Celexa] 20 mg PO DAILY 02/28/13 Fluticasone 0.05% [Flonase Nasal 2 spray NASAL DAILY PRN PRN 02/28/13 [place]] Montelukast [Singulair] 10 mg PO QHS 07/08/14 Albuterol IH (ProAir) [Proair Hfa] 2 puff INHALATION Q6H PRN PRN 07/15/14 Atorvastatin Calcium [Lipitor] 40 mg PO QHS #30 tab 10/03/16 Tolterodine Tartrate [Detrol LA] 4 mg PO DAILY 11/18/17 nitroglycerin 0.4 mg sublingual 0.4 mg SUBLINGUAL Q5M PRN #25 tab 12/12/17 tablet Hydrocodone/Acetaminophen 1 tab PO BID PRN PRN 12/22/17 [Hydrocodone-Acetamin 5-325 mg] omeprazole 40 mg capsule,delayed 40 mg PO DAILY 02/14/18 release pramipexole 1 mg tablet 1 mg PO TID PRN tab 02/14/18 Albuterol Sulfate 1.25 mg IH Q4H PRN PRN 06/29/18 Clopidogrel Bisulfate [Clopidogrel] 75 mg PO BID 06/29/18 Furosemide [Lasix] 20 mg PO QODAY 06/29/18 Surgical History: Surgical History (Last Reviewed 06/29/18 @ 03:45 by Omer Hoffman MD) History of right-sided carotid endarterectomy (Chronic) Onset Date: ~07/2014 Z98.890 left subclavian artery stent (Chronic) Onset Date: ~03/2017 History of coronary artery stent placement (Chronic) Onset Date: 01/20/18 Z95.5 BUR-BOR-Lrzlxp LAD (2.25 X 24 Promus Synergy) and MUSHTAQ to 2 tandem lesions Prox LAD (3.5 X 24 Promus Synergy) 01/20/2018 HJT-UTB-Pgmg RCA 03/22/13 XGP-AOS-Looakc RCA 2000 and 2002 History of right knee joint replacement Z96.651 History of section Z98.891 History of cholecystectomy Z98.890, Z90.49 H/O bariatric surgery (Inactive) Z98.84 Surgical History: angioplasty, - - 3 heart stents, bariatric surgery and , carotid endarterectemy Lives: With Family Smoking Status: Current every day smoker Tobacco Use: Cigarettes Alcohol: None - *Family History Maternal Family History: Family History (Last Reviewed 06/29/18 @ 03:46 by Omer Hoffman MD) Mother CVA (cerebral vascular accident) Father Asthma Hypertension High blood cholesterol level Arthritis History Items: Stroke Review of Systems Constitutional: Reports: Fatigue. Denies: Chills, Fever, Weight Change HEENT: Reports: Head Aches. Denies: Sinus Congestion, Sinus Drainage Cardiovascular: Denies: Chest Pain, Palpitations Respiratory: Reports: Cough, Shortness of breath at rest, Sputum production Gastrointestinal: Reports: Diarrhea - Transient, Nausea. Denies: Abdominal Pain, Vomiting Genitourinary: Denies: Dysuria Musculoskeletal: Denies: Joint Pain, Joint Tenderness Skin: Denies: Rash, Wounds Neurological: Denies: Numbness, Tingling, Focal weakness Psychiatric: Denies: Anxiety, Depression, Homicidal Ideations, Suicidal Ideations Hematologic/ Lymphatic: Denies: Easy Bruising, Easy Bleeding VTE Information - Inpt Only VTE Present on Admission: No VTE Mechan Device Prophylaxis: None VTE Pharm Prophylaxis ordered?: Yes Patient Problems: Active and Suspected Problems (Last Reviewed 06/29/18 @ 03:45 by Omer Hoffman MD) Influenza A (Acute) Bilateral pneumonia (Acute) - Physical Exam General: Alert, Oriented x3, Cooperative HEENT: Atraumatic, PERRLA, EOMI, Normocephalic Neck: Supple, No JVD, Negative Carotid Bruits Lungs: Rhonchi, Tachypneic, Wheezes Cardiovascular: Regular rate, No murmurs Abdomen: Bowel Sounds Present, Soft, Non Tender, - - Protrusion of abdomen consistent with her history of abdominal hernia. Extremities: No edema, Capillary Refill Less than 3 Seconds Skin: No rashes, No breakdown Musculoskeletal: No Tenderness to Palpation of Joints or Extremities Neurological: Neuro grossly intact Psych/Mental Status: Normal Affect, Appropriate Vital Signs Temp Pulse Resp BP Pulse Ox 100.0 F H 80 25 H 106/54 L 95 06/29/18 01:20 06/29/18 01:20 06/29/18 01:20 06/29/18 01:20 06/29/18 01:20 Oxygen Flow Rate (L/min) 3 Oxygen Delivery Method Nasal Cannula Weight: 116.573 kg Body Mass Index (BMI) 47.0 Finger Stick Blood Glucose 88 Microbiology Past 72 Hours 06/28/18 23:42 Influenza Types A,B Direct FA (JOSE) - Final Mucosa - Nasopharyngeal Influenzae A Laboratory Tests Past 24 Hrs 06/28/18 06/28/18 06/28/18 23:35 23:35 23:35 WBC 6.7 RBC 4.21 Hgb 11.0 L Hct 35.4 L MCV 84.1 MCH 26.1 L MCHC 31.1 L RDW 21.9 H RDW Differential 65.2 H Plt Count 217 MPV 8.5 Immature Gran % (Auto) 0.700 Neut % (Auto) 68.1 Lymph % (Auto) 19.3 [place] % (Auto) 11.4 H Eos % (Auto) 0.1 Baso % (Auto) 0.4 Absolute Neuts (auto) 4.6 Absolute Lymphs (auto) 1.30 Total Counted Not Reportable Differential Comment SCANNED Sodium 139 Potassium 3.4 L Chloride 104 Carbon Dioxide 29.0 Anion Gap 6 BUN 17 Creatinine 0.81 Estim Creat Clear Calc 46.73 Est GFR (MDRD) Af Amer 88 Est GFR (MDRD) Non-Af 73 BUN/Creatinine Ratio 20.9 H Glucose 93 Lactic Acid 1.0 Calcium 7.5 L B-Natriuretic Peptide 06/28/18 23:35 WBC RBC Hgb Hct MCV MCH MCHC RDW RDW Differential Plt Count MPV Immature Gran % (Auto) Neut % (Auto) Lymph % (Auto) [place] % (Auto) Eos % (Auto) Baso % (Auto) Absolute Neuts (auto) Absolute Lymphs (auto) Total Counted Differential Comment Sodium Potassium Chloride Carbon Dioxide Anion Gap BUN Creatinine Estim Creat Clear Calc Est GFR (MDRD) Af Amer Est GFR (MDRD) Non-Af BUN/Creatinine Ratio Glucose Lactic Acid Calcium B-Natriuretic Peptide 67.8 Assessment/Plan All Active Problems (Last Reviewed 06/29/18 @ 03:45 by Omer Hoffman MD) Influenza A (Acute) Bilateral pneumonia (Acute) The patient is a 77 year old F with a significant history of COPD; tobacco abuse; morbid obesity; CAD status post stents; diabetes mellitus; hypertension; and obstructive sleep apnea who presented with progressively worsening shortness of breath; headache; wheezing; productive cough and found to have positive influenza A and with radiographic evidence of bilateral infiltrates consistent with community-acquired pneumonia; /influenza bronchiolitis/influenza pneumonia; causing COPD exacerbation with acute on chronic hypoxemic respiratory failure . Acute on chronic hypoxemic respiratory failure. Reportedly patient was on 82% on room air at emergency department and with 3 L her oxygenation went into the 90s. Reportedly at home patient has been using her 3 L/min nasal cannula all the time instead of nightly and as needed. Likely from influenza bronchitis/bronchiolitis/pneumonia; COPD exacerbation and committee acquired pneumonia. Treatment as below. Influenza bronchitis/influenza bronchiolitis/influenza pneumonia. Patient noted to have a low-grade fever with T-max of 100 Received Tamiflu 75 mg p.o. at emergency department Will adjust for creatinine clearance and continue patient on influenza 30 mg p.o. twice daily. Trend BMP and adjust influenza dose as necessary. Will start patient on scheduled steroid. Droplet precautions. Received Tylenol at the emergency department. Tylenol as needed continued. COPD exacerbation Supplemental oxygen to maintain oxygenation above 90%. Scheduled DuoNeb and as needed albuterol ordered Schedule Mucinex ordered. Home steroid inhaler continued Community-acquired pneumonia Chest x-ray independently reviewed showed bilateral consolidation Was started on Levaquin in the emergency department. We will continue patient on azithromycin and ceftriaxone. Chest physiotherapy ordered. Blood cultures were ordered at the emergency department; follow Incentive spirometer ordered Streptococcus antigen and Legionella antigen ordered Sputum culture ordered. Lactic acid in the emergency department was unremarkable. Hypokalemia On presentation potassium was 3.4. 40 mEq of potassium x1 ordered. Trend BMP. Depression Celexa continued CAD status post stent: Plavix continued GERD Protonix continued Restless leg syndrome Mirapex continued Overactive bladder Detrol continued Obstructive sleep apnea Patient reports that because she was not using her home CPAP for 4 hours each day it was taken away from her. Abdominal hernia Patient reports outpatient scheduled preoperative stress test and a consideration for hernia repair. History of bilateral lower extremity swelling Lasix continued. Tobacco abuse Counselled Patient declined nicotine patch. DVT prophylaxis Subcutaneous Lovenox. Code Visit Inpatient E&M: 87990 Init Hosp L3
[2018-06-29 01:53] LABS: Albumin, Serum 2.4 g/dL (3.2-5.0)
[2018-06-29] MEDS: Acetaminophen 325 MG Tablet 650 MG PO (02:01)
[2018-06-29] MEDS: Ceftriaxone 1 GM/50 ML BAG IV ×2 (06:20→21:06)
[2018-06-29 06:30] LABS: Anion Gap 6 (5-15); BUN 15 mg/dL (7-18); BUN/Creat Ratio 20.6 RATIO (10-20); Calcium,Total 7.3 mg/dL (8.5-10.1); Chloride 107 mmol/L (98-107); Creatinine, Serum 0.73 mg/dL (0.55-1.02); EST Glomerular Filtration Rate 83 mL/min (>60); Est Glom Filt Rate - Afr Amer 100 mL/min (>60); Estimated Creatinine Clearance 37.85 ml/min; Glucose 97 mg/dL (74-106); Potassium 3.8 mmol/L (3.5-5.1); Sodium Level 139 mmol/L (136-145)
[2018-06-29 06:42] LABS: Absolute Lymphocyte Count 1.02 X10^3/ul (0.83-4.51); Absolute Neutrophil Count 4.7 X10^3/uL (2.0-7.7); Basophil# 0.02 X10^3/uL; Basophil% 0.3 % (0-1); Hematocrit 32.8 % (37-47); Lymphocyte # 1.02 X10^3/ul (4.0); Lymphocyte % 15.9 % (19-41); Mean Corp Hgb Conc 30.5 g/gl (32-36); Mean Corpuscular Hgb 25.8 pg (27.0-32.0); Mean Corpuscular Volume 84.5 fL (81-99); Mean Platelet Vol. 8.6 fl (6.2-12.0); Monocyte# 0.69 X10^3/uL; Monocyte% 10.7 % (0-10); Neutrophil # 4.67 X10^3/uL (2.7-7.7); Neutrophil % 72.6 % (47-70); Platelet Count 196 K/mm3 (150-450); RBC Distribution Width CV 21.7 % (11.6-14.6); Red Blood Count 3.88 M/mm3 (4.2-5.4); White Blood Count 6.4 K/mm3 (4.4-11.0)
[2018-06-29 06:43] LABS: Differential Indicated SCAN CRITERIA MET; POSITIVE COUNT NO; POSITIVE DIFFERENTIAL NO; POSITIVE MORPHOLOGY YES
[2018-06-29 06:45] LABS: Differential Comment SCANNED
[2018-06-29] MEDS: Ipratropium/Albuterol Sulfate 3 ML AMPUL.NEB INHALATION ×4 (07:03→19:13)
[2018-06-29] MEDS: Pantoprazole Sodium 40 MG Tablet PO (09:50)
[2018-06-29] MEDS: Enoxaparin 40 MG/0.4 ML Syringe SC (09:50)
[2018-06-29] MEDS: Citalopram 20 MG Tablet PO (10:16)
[2018-06-29] MEDS: Losartan Potassium 25 MG Tablet PO (10:16)
[2018-06-29] MEDS: Clopidogrel Bisulfate 75 MG Tablet PO ×2 (10:16→21:14)
[2018-06-29] MEDS: Furosemide 20 MG Tablet PO (10:16)
[2018-06-29] MEDS: Oseltamivir Phosphate 30 MG Capsule PO ×2 (10:16→21:06)
[2018-06-29] MEDS: Tolterodine Tartrate 4 MG CAP.SA PO (10:16)
[2018-06-29] MEDS: guaiFENesin 1,200 MG Tablet 1200 MG PO ×2 (10:16→21:06)
--- NOTE | 2018-06-29 10:26 | CASEMGMT ---
Addendum entered by Vickie Frausto 06/29/18 10:55: Pt states she also has an adjustable hospital type of bed. Original Note: RN CM IT TRAINER CM to room to meet with patient for initial transition planning/care coordination assessment. RN LUZ ELENA introduced self and role at [facility]. Pt voices understanding and consents to assessment at this time. Pt sitting up in recliner chair in no distress at this time. Pt is A/O at this time and answers all questions appropriately. Care providers, pharmacy, and demographics verified/updated at this time. PCP: [facility] Specialists: [facility]--cardiology. Sees doctor @ [facility] for hernia. Preferred Pharmacy: [facility] Insurance: MMO MCR Prescription Benefit: Yes Living Will/HPOA: Has both LW and HCPOA, who is her , Geovanny. States her family is going to look for the paperwork and bring in today if they can find it. LNOK: , Geovanny. Daughter, Missy. Living Arrangements: Lives with her in efficiency apt attached to her daughters home, Missy Goss. Transportation: , Daughter. DME: has the following DME: tub bench/shower chair, cane, WW, rollator, and uses a golf cart for outdoors on the property. Wears O2 @ [facility] @ 3L/M thru [employer]. Has a concentrator and portability. will ask her family to bring in portable device in case she needs O2 on discharge. used to have a CPAP machine but it was removed/taken away d/t she was not wearing it long enough at night for insurance to cover. Pt states is interested in information on Medical Alert button. Pt provided with list of local companies that provide this. Pt also states is interested in looking into getting a motorized W/C. Pt advised to talk to her PCP about this. HHC/SNF: Hx of [place] after knee surgery. No history of HHC. States would be interested in HHC for therapy, as it has been more difficult for her to ambulate. Pt states she has no preference of agency. Referral made to Marisela @ [facility] HHC. She was made aware of possible discharge tomorrow 06/30 and made aware start of care for Tuesday would be okay. Order placed for HHC: penitentiary, PT/OT eval and tx. Pt wishes to return home and states has no concerns with going home at time of discharge. States she used to smoke 2 PPD for about 55 yrs but just cut down to 7 cigarettes a day about 6 or 7 months ago. CM to follow for home oxygen needs and any further discharge planning/needs. Pt voices no further concerns/needs at this time. Advised pt to ask for CM if any further questions/concerns/needs arise. Voices understanding. PLAN: Home w/HHC for penitentiary and PT/OT. CM to follow for additional home O2 needs. Currently has home O2 @ 3 L/M @ [facility] only. Will need Home O2 qualification testing completed prior to discharge and new script if requiring O2 during the day or with ambulation. Radha RICHARDN RN CM
--- NOTE | 2018-06-29 12:13 | CHAPLAIN ---
Type of Pastoral Visit _x__ Initial Visit ___ Follow-up Visit ___ On-call Visit ___ General Patient Visit ___ Spiritual Assessment ___ Family Conference ___ Bereavement ___ Rapid Response ___ Code Blue ___ Other (describe below) Pastoral Care Referral From _x__ Patient ___ Family ___ Nurse ___ Physician ___ Customer Service Attendant ___ Explosive Ordnance Disposal Technician ___ Other (describe below) Sacrament/Intervention _x__ Active listening ___ Anointing ___ Restorationism ___ Bereavement ___ Communion _x__ Mira exploration ___ _x__ Life review _x__ Prayer ___ Reconciliation ___ Sacrament of Sick _x__ Supportive presence ___ Wedding ___ Other (describe below) Pastoral Comments patient is very talkative and admits to it saying can you tell I haven't talked to anybody in awhile?; pt speaks of not liking the aging process and hopes she will not go through painful end to life; pt asks questions of spiritual nature and ; pt does not have a islam connection but was raised as a Alevism; pt says she has a daughter that is always available to her and a good family but I worry about their health; pt accepted a prayer;
--- NOTE | 2018-06-29 13:12 | PN_ITS ---
<Saul Tarango - Last Filed: 06/29/18 13:04> Patient Problems: Active and Suspected Problems (Last Reviewed 06/29/18 @ 03:45 by Omer Hoffman MD) Influenza A (Acute) Bilateral pneumonia (Acute) Subjective: Cough with copious white sputum continues. The patient has smoked 55 years about 2 ppd, recently she has cut back to 7 cigarettes per day and is trying to wean off. Fever 100.0 overnight. No chills. Still SOB. Still requiring 3 lpm O2 - normally on only at night. - Physical Exam General: Alert, Oriented x3, Cooperative HEENT: Atraumatic, PERRLA, EOMI, Normocephalic Neck: Supple, No JVD, Negative Carotid Bruits Lungs: Diminished, Rales Cardiovascular: Regular rate, No murmurs Abdomen: Bowel Sounds Present, Soft, Non Tender Extremities: No edema, Capillary Refill Less than 3 Seconds Skin: No rashes, No breakdown Musculoskeletal: No Tenderness to Palpation of Joints or Extremities Neurological: Cranial nerves II-XII grossly intact Psych/Mental Status: Normal Affect, Appropriate, Alert and oriented to time, place, person, mood and affect Vital Signs Temp Pulse Resp BP Pulse Ox 98.3 F 74 16 98/47 L 96 06/29/18 08:20 06/29/18 10:34 06/29/18 10:34 06/29/18 08:20 06/29/18 08:20 Oxygen Flow Rate (L/min) 2 Oxygen Delivery Method Nasal Cannula Weight: 249 lb 12.54 oz Body Mass Index (BMI) 45.6 Finger Stick Blood Glucose 88 Intake and Output for Last 24 Hours 06/27/18 06/28/18 06/29/18 23:59 23:59 23:59 Intake Total 500 / 500 Balance 500 / 500 Microbiology Past 72 Hours 06/28/18 23:42 Influenza Types A,B Direct FA (JOSE) - Final Mucosa - Nasopharyngeal Influenzae A Laboratory Tests Past 24 Hrs 06/28/18 06/28/18 06/28/18 23:35 23:35 23:35 WBC 6.7 RBC 4.21 Hgb 11.0 L Hct 35.4 L MCV 84.1 MCH 26.1 L MCHC 31.1 L RDW 21.9 H RDW Differential 65.2 H Plt Count 217 MPV 8.5 Immature Gran % (Auto) 0.700 Neut % (Auto) 68.1 Lymph % (Auto) 19.3 Worth % (Auto) 11.4 H Eos % (Auto) 0.1 Baso % (Auto) 0.4 Absolute Neuts (auto) 4.6 Absolute Lymphs (auto) 1.30 Total Counted Not Reportable Differential Comment SCANNED Sodium 139 Potassium 3.4 L Chloride 104 Carbon Dioxide 29.0 Anion Gap 6 BUN 17 Creatinine 0.81 Estim Creat Clear Calc 46.73 Est GFR (MDRD) Af Amer 88 Est GFR (MDRD) Non-Af 73 BUN/Creatinine Ratio 20.9 H Glucose 93 Lactic Acid 1.0 Calcium 7.5 L B-Natriuretic Peptide Albumin 06/28/18 06/28/18 06/29/18 23:35 23:35 05:56 WBC 6.4 RBC 3.88 L Hgb 10.0 L Hct 32.8 L MCV 84.5 MCH 25.8 L MCHC 30.5 L RDW 21.7 H RDW Differential 65.0 H Plt Count 196 MPV 8.6 Immature Gran % (Auto) 0.500 Neut % (Auto) 72.6 H Lymph % (Auto) 15.9 L Worth % (Auto) 10.7 H Eos % (Auto) 0.0 Baso % (Auto) 0.3 Absolute Neuts (auto) 4.7 Absolute Lymphs (auto) 1.02 Total Counted Not Reportable Differential Comment SCANNED Sodium Potassium Chloride Carbon Dioxide Anion Gap BUN Creatinine Estim Creat Clear Calc Est GFR (MDRD) Af Amer Est GFR (MDRD) Non-Af BUN/Creatinine Ratio Glucose Lactic Acid Calcium B-Natriuretic Peptide 67.8 Albumin 2.4 L 06/29/18 05:56 WBC RBC Hgb Hct MCV MCH MCHC RDW RDW Differential Plt Count MPV Immature Gran % (Auto) Neut % (Auto) Lymph % (Auto) Worth % (Auto) Eos % (Auto) Baso % (Auto) Absolute Neuts (auto) Absolute Lymphs (auto) Total Counted Differential Comment Sodium 139 Potassium 3.8 Chloride 107 Carbon Dioxide 26.0 Anion Gap 6 BUN 15 Creatinine 0.73 Estim Creat Clear Calc 37.85 Est GFR (MDRD) Af Amer 100 Est GFR (MDRD) Non-Af 83 BUN/Creatinine Ratio 20.6 H Glucose 97 Lactic Acid Calcium 7.3 L B-Natriuretic Peptide Albumin Medical Necessity - Tobacco Use Smoking Status: Current every day smoker Tobacco Use: Cigarettes Assessment/Plan All Active Problems (Last Reviewed 06/29/18 @ 03:45 by Omer Hoffman MD) Influenza A (Acute) Bilateral pneumonia (Acute) 1. Acute on chronic hypoxic respiratory failure 2/2 acute COPD exacerbation 2/2 acute influenza A syndrome - possibly some underlying Pna as well on CXR, however not much different compared to prior evals. Continue tamiflu, rocephin/azithro, solumedrol, aerosols. Currently on 3 lpm o2, usually only on at night. Hypokalemia resolved. 2. Ongoing nicotine abuse - still smoking 7 cig/day, as above 55 year smoking hx of 2 ppd. 3. JESSICA, possibly OHS - CPAP taken away for noncompliance. On NC at night. 4. Morbid obesity - complicating above. Bight Maker eval. 5. CAD - prior stent. on statin, plavix, losartan. 6. RLS - mirapex 7. Abdominal hernia - is being evaluated as an outpatient. 8. GERD - on ppi 9. Depression - SSRI, trazodone qhs 10. Chronie LE edemia - on small dose home lasix. DVT ppx: lovenox DC planning: likely home at dc, may need increased home o2 requirement. She needs to follow up with a vice president marketing & development as an outpatient. This patient was seen by Saul Tarango PA-C under the supervision of Doctor Talon. <Teresita Hanley - Last Filed: 06/29/18 13:50> - Physical Exam Vital Signs Temp Pulse Resp BP Pulse Ox 98.3 F 74 16 98/47 L 96 06/29/18 08:20 06/29/18 10:34 06/29/18 10:34 06/29/18 08:20 06/29/18 08:20 Oxygen Flow Rate (L/min) 2 Oxygen Delivery Method Nasal Cannula Weight: 249 lb 12.54 oz Body Mass Index (BMI) 45.6 Finger Stick Blood Glucose 88 Intake and Output for Last 24 Hours 06/27/18 06/28/18 06/29/18 23:59 23:59 23:59 Intake Total 500 / 500 Balance 500 / 500 Microbiology Past 72 Hours 04/17/19 23:42 Influenza Types A,B Direct FA (JOSE) - Final Mucosa - Nasopharyngeal Influenzae A Laboratory Tests Past 24 Hrs 06/28/18 06/28/18 06/28/18 23:35 23:35 23:35 WBC 6.7 RBC 4.21 Hgb 11.0 L Hct 35.4 L MCV 84.1 MCH 26.1 L MCHC 31.1 L RDW 21.9 H RDW Differential 65.2 H Plt Count 217 MPV 8.5 Immature Gran % (Auto) 0.700 Neut % (Auto) 68.1 Lymph % (Auto) 19.3 Worth % (Auto) 11.4 H Eos % (Auto) 0.1 Baso % (Auto) 0.4 Absolute Neuts (auto) 4.6 Absolute Lymphs (auto) 1.30 Total Counted Not Reportable Differential Comment SCANNED Sodium 139 Potassium 3.4 L Chloride 104 Carbon Dioxide 29.0 Anion Gap 6 BUN 17 Creatinine 0.81 Estim Creat Clear Calc 46.73 Est GFR (MDRD) Af Amer 88 Est GFR (MDRD) Non-Af 73 BUN/Creatinine Ratio 20.9 H Glucose 93 Lactic Acid 1.0 Calcium 7.5 L B-Natriuretic Peptide Albumin 06/28/18 06/28/18 06/29/18 23:35 23:35 05:56 WBC 6.4 RBC 3.88 L Hgb 10.0 L Hct 32.8 L MCV 84.5 MCH 25.8 L MCHC 30.5 L RDW 21.7 H RDW Differential 65.0 H Plt Count 196 MPV 8.6 Immature Gran % (Auto) 0.500 Neut % (Auto) 72.6 H Lymph % (Auto) 15.9 L Worth % (Auto) 10.7 H Eos % (Auto) 0.0 Baso % (Auto) 0.3 Absolute Neuts (auto) 4.7 Absolute Lymphs (auto) 1.02 Total Counted Not Reportable Differential Comment SCANNED Sodium Potassium Chloride Carbon Dioxide Anion Gap BUN Creatinine Estim Creat Clear Calc Est GFR (MDRD) Af Amer Est GFR (MDRD) Non-Af BUN/Creatinine Ratio Glucose Lactic Acid Calcium B-Natriuretic Peptide 67.8 Albumin 2.4 L 06/29/18 05:56 WBC RBC Hgb Hct MCV MCH MCHC RDW RDW Differential Plt Count MPV Immature Gran % (Auto) Neut % (Auto) Lymph % (Auto) Worth % (Auto) Eos % (Auto) Baso % (Auto) Absolute Neuts (auto) Absolute Lymphs (auto) Total Counted Differential Comment Sodium 139 Potassium 3.8 Chloride 107 Carbon Dioxide 26.0 Anion Gap 6 BUN 15 Creatinine 0.73 Estim Creat Clear Calc 37.85 Est GFR (MDRD) Af Amer 100 Est GFR (MDRD) Non-Af 83 BUN/Creatinine Ratio 20.6 H Glucose 97 Lactic Acid Calcium 7.3 L B-Natriuretic Peptide Albumin Assessment/Plan Hospitalist note: I am seeing this patient in conjunction with Saul Tarango. I independently seen and examined the patient. Progress note above, laboratory data and imaging studies reviewed and I concur with the above treatment plan. Patient was admitted because of worsening shortness of breath, wheezing and productive cough. She was found to have probable bilateral basal infiltrate on chest x-ray but upon revision of her chart, she had CTA chest on April, that showed bilateral lower lobe consolidation and she was treated as a case of pneumonia. At this time, she has no leukocytosis, she is afebrile. Symptoms are likely due to COPD exacerbation triggered by acute influenza infection. She is on bronchodilators, IV steroids and empiric IV antibiotics. Her vital signs are stable and pulse ox is 96% on 2 L of oxygen. Plan to potassium treatment. This note was generated with [employer] dictation software. It may contain incorrect words, spelling, and punctuation that were not noted in checking the note before signing.
[2018-06-29] MEDS: Fluticasone 0.05% 1 SPRAY NASAL.SRY 2 SPRAY NASAL (21:06)
[2018-06-29] MEDS: Atorvastatin Calcium 40 MG Tablet PO (21:06)
[2018-06-29] MEDS: Montelukast 10 MG Tablet PO (21:07)
[2018-06-29] MEDS: traZODone 50 MG Tablet PO (21:07)
[2018-06-30 02:20] VITALS: BP 149/72; PULSE 72; RESP 20; TEMP 36.5; O2SAT 94
[2018-06-30 03:05] VITALS: O2SAT 94
[2018-06-30 05:57] LABS: Absolute Neutrophil Count 3.6 X10^3/uL (2.0-7.7); Basophil# 0.01 X10^3/uL; Basophil% 0.2 % (0-1); Hematocrit 35.3 % (37-47); Hemoglobin 10.7 g/dl (12.0-15.0); Lymphocyte % 18.4 % (19-41); Mean Corp Hgb Conc 30.3 g/gl (32-36); Mean Corpuscular Hgb 25.9 pg (27.0-32.0); Mean Corpuscular Volume 85.5 fL (81-99); Mean Platelet Vol. 8.4 fl (6.2-12.0); Monocyte# 0.35 X10^3/uL; Monocyte% 7.1 % (0-10); Neutrophil # 3.62 X10^3/uL (2.7-7.7); Neutrophil % 73.9 % (47-70); Platelet Count 206 K/mm3 (150-450); RBC Distribution Width CV 21.4 % (11.6-14.6); RBC Distribution Width SD 66.9 fl (35.1-43.9); Red Blood Count 4.13 M/mm3 (4.2-5.4); White Blood Count 4.9 K/mm3 (4.4-11.0)
[2018-06-30 06:05] LABS: Differential Indicated SCAN CRITERIA MET; POSITIVE COUNT NO; POSITIVE DIFFERENTIAL NO; POSITIVE MORPHOLOGY YES
[2018-06-30 06:19] LABS: Anisocytosis 1+; Differential Comment SCANNED
[2018-06-30 06:54] VITALS: PULSE 85; RESP 20; O2SAT 93
[2018-06-30] MEDS: Ipratropium/Albuterol Sulfate 3 ML AMPUL.NEB INHALATION (06:54)
[2018-06-30 09:50] VITALS: BP 104/75; PULSE 70; RESP 18; TEMP 36.7; O2SAT 94
[2018-06-30] MEDS: Tolterodine Tartrate 4 MG CAP.SA PO (09:56)
[2018-06-30] MEDS: guaiFENesin 1,200 MG Tablet 1200 MG PO (09:56)
[2018-06-30] MEDS: Citalopram 20 MG Tablet PO (09:56)
[2018-06-30] MEDS: Oseltamivir Phosphate 30 MG Capsule PO (09:56)
[2018-06-30] MEDS: Losartan Potassium 25 MG Tablet PO (09:56)
[2018-06-30] MEDS: Enoxaparin 40 MG/0.4 ML Syringe SC (09:57)
[2018-06-30] MEDS: Clopidogrel Bisulfate 75 MG Tablet PO (09:57)
[2018-06-30] MEDS: Pantoprazole Sodium 40 MG Tablet PO (09:57)
--- NOTE | 2018-06-30 10:54 | DCINST_ITS ---
Addendum entered and electronically signed by MACIE Guzman 06/30/18 13:46: Original Note: - Discharge Diagnoses Current Active Problems: Current Active and Chronic Problems (Last Reviewed 06/29/18 @ 03:45 by Omer Hoffman MD) Influenza A (Acute) You will use the following diet at home:: Cardiac Your food should be the consistency of: Regular Your liquids should be the consistency of: Regular/Thin Discharge Activity: Return to Normal Activity Allergies/Adverse Reactions: Allergies aspirin [ASA] Allergy (Severe, Verified 06/28/18 23:07) Hives bupropion [From Wellbutrin] Allergy (Verified 06/28/18 23:07) Unknown codeine Allergy (Verified 06/29/18 04:35) Hives meperidine HCl [From Demerol] Allergy (Verified 06/28/18 23:07) Hives naproxen sodium [From Anaprox] Allergy (Verified 06/29/18 04:35) Hives propoxyphene HCl [From Darvon] Allergy (Verified 06/28/18 23:07) Hives Sulfa (Sulfonamide Antibiotics) Allergy (Verified 06/29/18 04:35) hives, trouble breathing gabapentin Adverse Reaction (Intermediate, Verified 06/28/18 23:07) Mental status change, foggy headed NSAIDS (Non-Steroidal Anti-Inflamma Adverse Reaction (Verified 06/29/18 04:35) Hives Medications to take at Discharge Budesonide/Formoterol 80-4.5 [Symbicort 80-4.5 Mcg Inhaler] 2 puff INHALATION BID 02/28/13 Citalopram [Celexa] 20 mg PO DAILY 02/28/13 Fluticasone 0.05% [Flonase Nasal [place]unker] 2 spray NASAL DAILY PRN PRN 02/28/13 Montelukast [Singulair] 10 mg PO QHS 07/08/14 Albuterol IH (ProAir) [Proair Hfa] 2 puff INHALATION Q6H PRN PRN 07/15/14 Atorvastatin Calcium [Lipitor] 40 mg PO QHS #30 tab 10/03/16 Tolterodine Tartrate [Detrol LA] 4 mg PO DAILY 11/18/17 nitroglycerin 0.4 mg sublingual tablet 0.4 mg SUBLINGUAL Q5M PRN #25 tab 12/12/17 Hydrocodone/Acetaminophen [Hydrocodone-Acetamin 5-325 mg] 1 tab PO BID PRN PRN 12/22/17 omeprazole 40 mg capsule,delayed release 40 mg PO DAILY 02/14/18 pramipexole 1 mg tablet 1 mg PO TID PRN tab 02/14/18 Albuterol Sulfate 1.25 mg IH Q4H PRN PRN 06/29/18 Clopidogrel Bisulfate [Clopidogrel] 75 mg PO BID 06/29/18 Furosemide [Lasix] 20 mg PO QODAY 06/29/18 Acetaminophen [Tylenol Tablet] 650 mg PO Q6H PRN PRN tablet 06/30/18 Azithromycin [Zithromax] 500 mg PO DAILY #1 tablet 06/30/18 Cefdinir [Omnicef [equiv]] 300 mg PO Q12H #6 capsule 06/30/18 Oseltamivir Phosphate [Tamiflu] 30 mg PO BID #7 capsule 06/30/18 Prednisone 10 mg PO UD #30 tab 06/30/18 The following prescriptions were given: Azithromycin [Zithromax] 500 mg PO DAILY #1 tablet Cefdinir [Omnicef [equiv]] 300 mg PO Q12H #6 capsule Oseltamivir Phosphate [Tamiflu] 30 mg PO BID #7 capsule Prednisone 10 mg PO UD #30 tab Primary Care Physician: Vicente Raya III, MD [Primary Care Provider] - Please follow up with your Primary Care Physician in: 1-2 weeks Test Results: Test results from this visit will be discussed in further detail at your follow- up appointment, if applicable.
--- NOTE | 2018-06-30 12:38 | PCM.DC.SUM ---
<Saul Tarango - Last Filed: 06/30/18 13:41> Discharge Date and Diagnosis Date of Admission: 06/29/18 Date of Discharge: 06/30/18 - Primary Discharge Diagnosis Active and Suspected Problems (Last Reviewed 06/29/18 @ 03:45 by Omer Hoffman MD) Acute hypoxic respiratory failure secondary to acute COPD exacerbation secondary to influenza A (Acute) Possible bilateral community-acquired pneumonia Ongoing nicotine abuse Obstructive sleep apnea noncompliant with CPAP Morbid obesity Coronary artery disease with prior stent placement Restless leg syndrome Abdominal hernia secondary to prior gastric bypass GERD Depression Chronic lower extremity edema - Secondary Discharge Diagnosis Chronic Problems (Last Reviewed 06/29/18 @ 03:45 by Omer Hoffman MD) Hyperlipidemia (Chronic) VBI (vertebrobasilar insufficiency) (Chronic) Stage 2 moderate COPD by GOLD classification (Chronic) Chronic hypoxemic respiratory failure (Chronic) History of right-sided carotid endarterectomy (Chronic ~07/2014) left subclavian artery stent (Chronic ~03/2017) Stenosis of left subclavian artery (Chronic ~03/2017) stent the left subclavian with a 7 x 39 Poonam History of coronary artery stent placement (Chronic 01/20/18) [id number]-[id number] LAD (2.25 X 24 Promus Synergy) and MUSHTAQ to 2 tandem lesions Prox LAD (3.5 X 24 Promus Synergy) 01/20/2018 MOA-FOY-Dabb RCA 03/22/13 WMH-RIT-Nfiemq RCA 2000 and 2002 Atherosclerosis of coronary artery of [place] without angina pectoris (Chronic) [id number]-HKM-Ammgzb LAD and MUSHTAQ to 2 tandem lesions Prox LAD 01/20/2018 XSW-YLF-Dwnf RCA 03/22/13 WZF-WNI-Xejdxs RCA 2000 and 2002 Asthma (Chronic) HTN (hypertension) (Chronic) Tobacco abuse (Chronic) Obesities, morbid (Chronic) History of COPD (Chronic) History of diabetes mellitus, type II (Chronic) History of gastroesophageal reflux (GERD) (Chronic) Obstructive sleep apnea (Chronic) Hospital Course and Treatment Imaging Results: RAD/Chest 1 View (Portable) IMPRESSION: 1. Cardiomegaly and mild pulmonary congestion. 2. Bilateral basilar air space consolidation and/or atelectasis may represent pneumonia.. Operations: None Procedures: None Summary of Care Provided: Hospital course: The patient is a 77 year old F with past medical history as above significant for COPD and ongoing nicotine abuse-smoked 2 packs/day for 55 years, who presented to the emergency room with increased shortness of breath, productive cough, fevers and chills at home, and increased oxygen use. She normally wears as needed oxygen at night and sometimes during the day, altho she did admit she sometimes will use it prn up to 3 L/min. she required up to 3 L/min to maintain good sats in the ER. She was also very wheezy and chest x-ray showed possible pneumonia, and she tested positive for influenza A. Lactic acid and BNP were negative. Pneumonia was questionable as chest x-ray was not very different compared to prior studies. She was admitted to the medical surgical floor. She was started on Tamiflu, Rocephin, azithromycin, Solu-Medrol, aerosols. She responded well to therapy. She was able to be weaned to 2 L/min oxygen. She was able to ambulate throughout the unit with no increased shortness of breath. Her cough improved. She was transitioned to oral antibiotics and will complete a total of 5 days of therapy, she will also complete 5 days of Tamiflu. She was given a steroid taper for the underlying acute COPD exacerbation. She is advised to follow-up with her PCP in 1-2 weeks. She was discharged home in stable condition. This patient was seen by Saul Tarango PA-C under the supervision of Doctor Hanley. [] - Physical Exam General: Alert, Oriented x3, Cooperative HEENT: Atraumatic, PERRLA, EOMI, Normocephalic Neck: Supple, No JVD, Negative Carotid Bruits Lungs: Diminished, Wheezes Cardiovascular: Regular rate, No murmurs Abdomen: Bowel Sounds Present, Soft, Non Tender Extremities: No edema, Capillary Refill Less than 3 Seconds Skin: No rashes, No breakdown Musculoskeletal: No Tenderness to Palpation of Joints or Extremities Neurological: Cranial nerves II-XII grossly intact Psych/Mental Status: Normal Affect, Appropriate, Alert and oriented to time, place, person, mood and affect Vital Signs Temp Pulse Resp BP Pulse Ox 98.1 F 70 18 104/75 94 06/30/18 09:50 06/30/18 09:50 06/30/18 09:50 06/30/18 09:50 06/30/18 09:50 Oxygen Flow Rate (L/min) 2 Oxygen Delivery Method Nasal Cannula Weight: 249 lb 12.54 oz Body Mass Index (BMI) 45.6 Finger Stick Blood Glucose 88 Intake and Output for Last 24 Hours 06/28/18 06/29/18 06/30/18 23:59 23:59 23:59 Intake Total 2165 / 2165 358 / 358 Balance 2165 / 2165 358 / 358 Microbiology Past 72 Hours 06/29/18 14:50 Respiratory Culture - Preliminary Sputum, Expectorated/Coughed Appears to be normal respiratory christian. Further studies to follow. 06/29/18 Unknown Streptococcus pneumoniae Antigen (M - Final Urine Catheter - Catheter 06/29/18 Unknown Legionella Antigen - Final Urine Catheter - Catheter 06/28/18 23:42 Influenza Types A,B Direct FA (JOSE) - Final Mucosa - Nasopharyngeal Influenzae A Laboratory Tests Past 24 Hrs 06/30/18 05:30 WBC 4.9 RBC 4.13 L Hgb 10.7 L Hct 35.3 L MCV 85.5 MCH 25.9 L MCHC 30.3 L RDW 21.4 H RDW Differential 66.9 H Plt Count 206 MPV 8.4 Immature Gran % (Auto) 0.400 Neut % (Auto) 73.9 H Lymph % (Auto) 18.4 L Parker % (Auto) 7.1 Eos % (Auto) 0.0 Baso % (Auto) 0.2 Absolute Neuts (auto) 3.6 Absolute Lymphs (auto) 0.90 Total Counted Not Reportable Differential Comment SCANNED Anisocytosis 1+ Discharge Diet: Low fat/ Low Cholesterol, 2000 mg Sodium Diet Discharge Activity: Return to Normal Activity Home Medications: Medications to take at Discharge Budesonide/Formoterol 80-4.5 [Symbicort 80-4.5 Mcg Inhaler] 2 puff INHALATION BID 02/28/13 Citalopram [Celexa] 20 mg PO DAILY 02/28/13 Fluticasone 0.05% [Flonase Nasal [place]] 2 spray NASAL DAILY PRN PRN 02/28/13 Montelukast [Singulair] 10 mg PO QHS 07/08/14 Albuterol IH (ProAir) [Proair Hfa] 2 puff INHALATION Q6H PRN PRN 07/15/14 Atorvastatin Calcium [Lipitor] 40 mg PO QHS #30 tab 10/03/16 Tolterodine Tartrate [Detrol LA] 4 mg PO DAILY 11/18/17 nitroglycerin 0.4 mg sublingual tablet 0.4 mg SUBLINGUAL Q5M PRN #25 tab 12/12/17 Hydrocodone/Acetaminophen [Hydrocodone-Acetamin 5-325 mg] 1 tab PO BID PRN PRN 12/22/17 omeprazole 40 mg capsule,delayed release 40 mg PO DAILY 02/14/18 pramipexole 1 mg tablet 1 mg PO TID PRN tab 02/14/18 Albuterol Sulfate 1.25 mg IH Q4H PRN PRN 06/29/18 Clopidogrel Bisulfate [Clopidogrel] 75 mg PO BID 06/29/18 Furosemide [Lasix] 20 mg PO QODAY 06/29/18 Acetaminophen [Tylenol Tablet] 650 mg PO Q6H PRN PRN tablet 06/30/18 Azithromycin [Zithromax] 500 mg PO DAILY #1 tablet 06/30/18 Cefdinir [Omnicef [equiv]] 300 mg PO Q12H #6 capsule 06/30/18 Oseltamivir Phosphate [Tamiflu] 30 mg PO BID #7 capsule 06/30/18 Prednisone 10 mg PO UD #30 tab 06/30/18 Following Prescrptions Were Given to Patient: Azithromycin [Zithromax] 500 mg PO DAILY #1 tablet Cefdinir [Omnicef [equiv]] 300 mg PO Q12H #6 capsule Oseltamivir Phosphate [Tamiflu] 30 mg PO BID #7 capsule Prednisone 10 mg PO UD #30 tab Primary Care Physician: Vicente Raya III, MD [Primary Care Provider] - Please follow up with your Primary Care Physician in: 1-2 weeks Disposition: Home Minutes spent on discharge:: 35 Patient Condition:: Stable Medical Necessity - Tobacco Use Smoking Status: Current every day smoker Tobacco Use: Cigarettes Meaningful Use Info Meaningful Use Diagnoses (Choose all that apply): None applicable <Teresita Hanley - Last Filed: 07/01/18 11:24> Discharge Date and Diagnosis - Secondary Discharge Diagnosis Chronic Problems (Last Reviewed 06/29/18 @ 03:45 by Omer Hoffman MD) Hyperlipidemia (Chronic) VBI (vertebrobasilar insufficiency) (Chronic) Stage 2 moderate COPD by GOLD classification (Chronic) Chronic hypoxemic respiratory failure (Chronic) History of right-sided carotid endarterectomy (Chronic ~07/2014) left subclavian artery stent (Chronic ~03/2017) Stenosis of left subclavian artery (Chronic ~03/2017) stent the left subclavian with a 7 x 39 Poonam History of coronary artery stent placement (Chronic 01/20/18) EXM-NIJ-Qkiuti LAD (2.25 X 24 Promus Synergy) and MUSHTAQ to 2 tandem lesions Prox LAD (3.5 X 24 Promus Synergy) 01/20/2018 EFI-PDW-Fjvz RCA 03/22/13 WJM-HHZ-Pnpsci RCA 2000 and 2002 Atherosclerosis of coronary artery of [place] without angina pectoris (Chronic) LJC-FZR-Doeguw LAD and MUSHTAQ to 2 tandem lesions Prox LAD 01/20/2018 GYK-HFW-Gwne RCA 03/22/13 AWG-[id number]-Qfzcwc RCA 2000 and 2002 Asthma (Chronic) HTN (hypertension) (Chronic) Tobacco abuse (Chronic) Obesities, morbid (Chronic) History of COPD (Chronic) History of diabetes mellitus, type II (Chronic) History of gastroesophageal reflux (GERD) (Chronic) Obstructive sleep apnea (Chronic) Hospital Course and Treatment Summary of Care Provided: Hospitalist note: Discharge summary above reviewed and I agree with above discharge and treatment plan. Patient was admitted because of worsening shortness of breath, productive cough and subjective fever as well as increased in home oxygen requirement. She was found to have acute COPD exacerbation triggered by acute influenza A and complicated by acute on chronic hypoxic respiratory failure. A chest x-ray revealed bilateral lower lobe infiltrate/consolidation and there was a concern that she may have probable bilateral lower lobe community-acquired pneumonia. The patient was admitted because of months ago and she had CTA chest and she was treated for pneumonia and those findings on the chest x-ray looks similar to the finding on the CTA chest that was done on April,. Patient was treated with IV antibiotics, IV steroids, Tamiflu for influenza A and bronchodilators. Her routine blood work was remarkable for chronic anemia, otherwise stable. Nasal swab for influenza a and B were positive for influenza A. Blood culture showed no growth in 48 hours. Sputum culture revealed mixed normal respiratory christian. Pneumococcal and Legionella antigen were negative. With treatment, patient unexpectedly improved which was very quick overnight and she did did very well. Her oxygen requirement decreased and it was even below her baseline at home. Patient felt to be safe to go home today. Patient discharged home in a stable medical condition with home health service, discharged on Zithromax and Ceftin ear as well as Tamiflu for acute influenza A and discharged on tapering course of prednisone, recommended to follow-up with PCP in 1-2 week. - Physical Exam General: Alert, Oriented x3, Cooperative, No apparent distress. HEENT: Atraumatic, PERRLA, EOMI. Neck: Supple, No JVD, Negative Carotid Bruits, Trachea Midline, Thyroid Normal. Lungs: Decreased breath sounds bilateral, occasional scattered wheezes, No rhonchi, No rales. Cardiovascular: Regular rate, Regular Rhythm, Normal S1, Normal S2, PMI Normal. Abdomen: Bowel Sounds Present, Soft, Non Tender, Non-Distended, No Hepato-splenomegaly. Extremities: No clubbing, No cyanosis, No edema Skin: No rashes, No breakdown Neurological: Neuro grossly intact Vital Signs are stable. This note was generated with [employer] dictation software. It may contain incorrect words, spelling, and punctuation that were not noted in checking the note before signing. - Physical Exam Vital Signs Temp Pulse Resp BP Pulse Ox 98.1 F 70 18 104/75 94 06/30/18 09:50 06/30/18 09:50 06/30/18 09:50 06/30/18 09:50 06/30/18 09:50 Oxygen Flow Rate (L/min) 2 Oxygen Delivery Method Nasal Cannula Weight: 249 lb 12.54 oz Body Mass Index (BMI) 45.6 Finger Stick Blood Glucose 88 Intake and Output for Last 24 Hours 06/28/18 06/29/18 06/30/18 23:59 23:59 23:59 Intake Total 2165 / 2165 358 / 358 Balance 2165 / 2165 358 / 358 Microbiology Past 72 Hours 06/29/18 14:50 Gram Stain - Final Sputum, Expectorated/Coughed Respiratory Culture - Preliminary Appears to be normal respiratory christian. Further studies to follow. 06/29/18 Unknown Streptococcus pneumoniae Antigen (M - Final Urine Catheter - Catheter 06/29/18 Unknown Legionella Antigen - Final Urine Catheter - Catheter 06/28/18 23:42 Influenza Types A,B Direct FA (JOSE) - Final Mucosa - Nasopharyngeal Influenzae A Laboratory Tests Past 24 Hrs 06/30/18 05:30 WBC 4.9 RBC 4.13 L Hgb 10.7 L Hct 35.3 L MCV 85.5 MCH 25.9 L MCHC 30.3 L RDW 21.4 H RDW Differential 66.9 H Plt Count 206 MPV 8.4 Immature Gran % (Auto) 0.400 Neut % (Auto) 73.9 H Lymph % (Auto) 18.4 L Parker % (Auto) 7.1 Eos % (Auto) 0.0 Baso % (Auto) 0.2 Absolute Neuts (auto) 3.6 Absolute Lymphs (auto) 0.90 Total Counted Not Reportable Differential Comment SCANNED Anisocytosis 1+ Disposition: Home Minutes spent on discharge:: 28 Patient Condition:: Stable Meaningful Use Info Meaningful Use Diagnoses (Choose all that apply): None applicable Code Visit OBSV E&M: 72157 Observation care discharge
--- NOTE | 2018-06-30 12:44 | DS.PCM_ITS ---
Addendum entered and electronically signed by MACIE Guzman 06/30/18 13:42: Code Visit Addendum: pt to go home with Home Health Care. Original Note: <Saul Tarango - Last Filed: 06/30/18 13:41> Discharge Date and Diagnosis Date of Admission: 06/29/18 Date of Discharge: 06/30/18 - Primary Discharge Diagnosis Active and Suspected Problems (Last Reviewed 06/29/18 @ 03:45 by Omer camilo MD) Acute hypoxic respiratory failure secondary to acute COPD exacerbation secondary to influenza A (Acute) Possible bilateral community-acquired pneumonia Ongoing nicotine abuse Obstructive sleep apnea noncompliant with CPAP Morbid obesity Coronary artery disease with prior stent placement Restless leg syndrome Abdominal hernia secondary to prior gastric bypass GERD Depression Chronic lower extremity edema - Secondary Discharge Diagnosis Chronic Problems (Last Reviewed 06/29/18 @ 03:45 by Omer Hoffman MD) Hyperlipidemia (Chronic) VBI (vertebrobasilar insufficiency) (Chronic) Stage 2 moderate COPD by GOLD classification (Chronic) Chronic hypoxemic respiratory failure (Chronic) History of right-sided carotid endarterectomy (Chronic ~07/2014) left subclavian artery stent (Chronic ~03/2017) Stenosis of left subclavian artery (Chronic ~03/2017) stent the left subclavian with a 7 x 39 Poonam History of coronary artery stent placement (Chronic 01/20/18) RRY-AGR-Xyvnof LAD (2.25 X 24 Promus Synergy) and MUSHTAQ to 2 tandem lesions Prox LAD (3.5 X 24 Promus Synergy) 01/20/2018 VBQ-IPA-Awml RCA 03/22/13 SYP-UWY-Yyrukc RCA 2000 and 2002 Atherosclerosis of coronary artery of [place] heart without angina pectoris (Chronic) VFD-EHS-Ksrewa LAD and MUSHTAQ to 2 tandem lesions Prox LAD 01/20/2018 OKC-KYK-Envq RCA 03/22/13 TGE-DLG-Orywll RCA 2000 and 2002 Asthma (Chronic) HTN (hypertension) (Chronic) Tobacco abuse (Chronic) Obesities, morbid (Chronic) History of COPD (Chronic) History of diabetes mellitus, type II (Chronic) History of gastroesophageal reflux (GERD) (Chronic) Obstructive sleep apnea (Chronic) Hospital Course and Treatment Imaging Results: RAD/Chest 1 View (Portable) IMPRESSION: 1. Cardiomegaly and mild pulmonary congestion. 2. Bilateral basilar air space consolidation and/or atelectasis may represent pneumonia.. Operations: None Procedures: None Summary of Care Provided: Hospital course: The patient is a 77 year old F with past medical history as above significant for COPD and ongoing nicotine abuse-smoked 2 packs/day for 55 years, who presented to the emergency room with increased shortness of breath, productive cough, fevers and chills at home, and increased oxygen use. She normally wears as needed oxygen at night and sometimes during the day, altho she did admit she sometimes will use it prn up to 3 L/min. she required up to 3 L/min to maintain good sats in the ER. She was also very wheezy and chest x-ray showed possible pneumonia, and she tested positive for influenza A. Lactic acid and BNP were negative. Pneumonia was questionable as chest x-ray was not very different compared to prior studies. She was admitted to the medical surgical floor. She was started on Tamiflu, Rocephin, azithromycin, Solu-Medrol, aerosols. She responded well to therapy. She was able to be weaned to 2 L/min oxygen. She was able to ambulate throughout the unit with no increased shortness of breath. Her cough improved. She was transitioned to oral antibiotics and will complete a total of 5 days of therapy, she will also complete 5 days of Tamiflu. She was given a steroid taper for the underlying acute COPD exacerbation. She is advised to follow-up with her PCP in 1-2 weeks. She was discharged home in stable condition. This patient was seen by Saul Tarango PA-C under the supervision of Doctor Hanley. [] - Physical Exam General: Alert, Oriented x3, Cooperative HEENT: Atraumatic, PERRLA, EOMI, Normocephalic Neck: Supple, No JVD, Negative Carotid Bruits Lungs: Diminished, Wheezes Cardiovascular: Regular rate, No murmurs Abdomen: Bowel Sounds Present, Soft, Non Tender Extremities: No edema, Capillary Refill Less than 3 Seconds Skin: No rashes, No breakdown Musculoskeletal: No Tenderness to Palpation of Joints or Extremities Neurological: Cranial nerves II-XII grossly intact Psych/Mental Status: Normal Affect, Appropriate, Alert and oriented to time, place, person, mood and affect Vital Signs Temp Pulse Resp BP Pulse Ox 98.1 F 70 18 104/75 94 06/30/18 09:50 06/30/18 09:50 06/30/18 09:50 06/30/18 09:50 06/30/18 09:50 Oxygen Flow Rate (L/min) 2 Oxygen Delivery Method Nasal Cannula Weight: 249 lb 12.54 oz Body Mass Index (BMI) 45.6 Finger Stick Blood Glucose 88 Intake and Output for Last 24 Hours 06/28/18 06/29/18 06/30/18 23:59 23:59 23:59 Intake Total 2165 / 2165 358 / 358 Balance 2165 / 2165 358 / 358 Microbiology Past 72 Hours 06/29/18 14:50 Respiratory Culture - Preliminary Sputum, Expectorated/Coughed Appears to be normal respiratory christian. Further studies to follow. 06/29/18 Unknown Streptococcus pneumoniae Antigen (M - Final Urine Catheter - Catheter 06/29/18 Unknown Legionella Antigen - Final Urine Catheter - Catheter 06/28/18 23:42 Influenza Types A,B Direct FA (JOSE) - Final Mucosa - Nasopharyngeal Influenzae A Laboratory Tests Past 24 Hrs 06/30/18 05:30 WBC 4.9 RBC 4.13 L Hgb 10.7 L Hct 35.3 L MCV 85.5 MCH 25.9 L MCHC 30.3 L RDW 21.4 H RDW Differential 66.9 H Plt Count 206 MPV 8.4 Immature Gran % (Auto) 0.400 Neut % (Auto) 73.9 H Lymph % (Auto) 18.4 L Kern % (Auto) 7.1 Eos % (Auto) 0.0 Baso % (Auto) 0.2 Absolute Neuts (auto) 3.6 Absolute Lymphs (auto) 0.90 Total Counted Not Reportable Differential Comment SCANNED Anisocytosis 1+ Discharge Diet: Low fat/ Low Cholesterol, 2000 mg Sodium Diet Discharge Activity: Return to Normal Activity Home Medications: Medications to take at Discharge Budesonide/Formoterol 80-4.5 [Symbicort 80-4.5 Mcg Inhaler] 2 puff INHALATION BID 02/28/13 Citalopram [Celexa] 20 mg PO DAILY 02/28/13 Fluticasone 0.05% [Flonase Nasal [place]] 2 spray NASAL DAILY PRN PRN 02/28/13 Montelukast [Singulair] 10 mg PO QHS 07/08/14 Albuterol IH (ProAir) [Proair Hfa] 2 puff INHALATION Q6H PRN PRN 07/15/14 Atorvastatin Calcium [Lipitor] 40 mg PO QHS #30 tab 10/03/16 Tolterodine Tartrate [Detrol LA] 4 mg PO DAILY 11/18/17 nitroglycerin 0.4 mg sublingual tablet 0.4 mg SUBLINGUAL Q5M PRN #25 tab 12/12/17 Hydrocodone/Acetaminophen [Hydrocodone-Acetamin 5-325 mg] 1 tab PO BID PRN PRN 12/22/17 omeprazole 40 mg capsule,delayed release 40 mg PO DAILY 02/14/18 pramipexole 1 mg tablet 1 mg PO TID PRN tab 02/14/18 Albuterol Sulfate 1.25 mg IH Q4H PRN PRN 06/29/18 Clopidogrel Bisulfate [Clopidogrel] 75 mg PO BID 06/29/18 Furosemide [Lasix] 20 mg PO QODAY 06/29/18 Acetaminophen [Tylenol Tablet] 650 mg PO Q6H PRN PRN tablet 06/30/18 Azithromycin [Zithromax] 500 mg PO DAILY #1 tablet 06/30/18 Cefdinir [Omnicef [equiv]] 300 mg PO Q12H #6 capsule 06/30/18 Oseltamivir Phosphate [Tamiflu] 30 mg PO BID #7 capsule 06/30/18 Prednisone 10 mg PO UD #30 tab 06/30/18 Following Prescrptions Were Given to Patient: Azithromycin [Zithromax] 500 mg PO DAILY #1 tablet Cefdinir [Omnicef [equiv]] 300 mg PO Q12H #6 capsule Oseltamivir Phosphate [Tamiflu] 30 mg PO BID #7 capsule Prednisone 10 mg PO UD #30 tab Primary Care Physician: Vicente Raya III, MD [Primary Care Provider] - Please follow up with your Primary Care Physician in: 1-2 weeks Disposition: Home Minutes spent on discharge:: 35 Patient Condition:: Stable Medical Necessity - Tobacco Use Smoking Status: Current every day smoker Tobacco Use: Cigarettes Meaningful Use Info Meaningful Use Diagnoses (Choose all that apply): None applicable <Teresita Hanley E - Last Filed: 07/01/18 11:24> Discharge Date and Diagnosis - Secondary Discharge Diagnosis Chronic Problems (Last Reviewed 06/29/18 @ 03:45 by Omer Hoffman MD) Hyperlipidemia (Chronic) VBI (vertebrobasilar insufficiency) (Chronic) Stage 2 moderate COPD by GOLD classification (Chronic) Chronic hypoxemic respiratory failure (Chronic) History of right-sided carotid endarterectomy (Chronic ~07/2014) left subclavian artery stent (Chronic ~03/2017) Stenosis of left subclavian artery (Chronic ~03/2017) stent the left subclavian with a 7 x 39 Poonam History of coronary artery stent placement (Chronic 01/20/18) JPA-PIK-Tdguma LAD (2.25 X 24 Promus Synergy) and MUSHTAQ to 2 tandem lesions Prox LAD (3.5 X 24 Promus Synergy) 01/20/2018 PXN-OHF-Tubu RCA 03/22/13 YMS-WQC-Dmhpjh RCA 2000 and 2002 Atherosclerosis of coronary artery of [place] heart without angina pectoris (Chronic) BLO-WIK-Wbeamu LAD and MUSHTAQ to 2 tandem lesions Prox LAD 01/20/2018 JDK-YHD-Ojma RCA 03/22/13 RDU-XKX-Woxuxk RCA 2000 and 2002 Asthma (Chronic) HTN (hypertension) (Chronic) Tobacco abuse (Chronic) Obesities, morbid (Chronic) History of COPD (Chronic) History of diabetes mellitus, type II (Chronic) History of gastroesophageal reflux (GERD) (Chronic) Obstructive sleep apnea (Chronic) Hospital Course and Treatment Summary of Care Provided: Hospitalist note: Discharge summary above reviewed and I agree with above discharge and treatment plan. Patient was admitted because of worsening shortness of breath, productive cough and subjective fever as well as increased in home oxygen requirement. She was found to have acute COPD exacerbation triggered by acute influenza A and co mplicated by acute on chronic hypoxic respiratory failure. A chest x-ray revealed bilateral lower lobe infiltrate/consolidation and there was a concern that she may have probable bilateral lower lobe community-acquired pneumonia. The patient was admitted because of months ago and she had CTA chest and she was treated for pneumonia and those findings on the chest x-ray looks similar to the finding on the CTA chest that was done on April,. Patient was treated with IV antibiotics, IV steroids, Tamiflu for influenza A and bronchodilators. Her routine blood work was remarkable for chronic anemia, otherwise stable. Nasal swab for influenza a and B were positive for influenza A. Blood culture showed no growth in 48 hours. Sputum culture revealed mixed normal respiratory christian. Pneumococcal and Legionella antigen were negative. With treatment, patient unexpectedly improved which was very quick overnight and she did did very well. Her oxygen requirement decreased and it was even below her baseline at home. Patient felt to be safe to go home today. Patient discharged home in a stable medical condition with home health service, discharged on Zithromax and Ceftin ear as well as Tamiflu for acute influenza A and discharged on tapering course of prednisone, recommended to follow-up with PCP in 1-2 week. - Physical Exam General: Alert, Oriented x3, Cooperative, No apparent distress. HEENT: Atraumatic, PERRLA, EOMI. Neck: Supple, No JVD, Negative Carotid Bruits, Trachea Midline, Thyroid Normal. Lungs: Decreased breath sounds bilateral, occasional scattered wheezes, No rhonchi, No rales. Cardiovascular: Regular rate, Regular Rhythm, Normal S1, Normal S2, PMI Normal. Abdomen: Bowel Sounds Present, Soft, Non Tender, Non-Distended, No Hepato- splenomegaly. Extremities: No clubbing, No cyanosis, No edema Skin: No rashes, No breakdown Neurological: Neuro grossly intact Vital Signs are stable. This note was generated with [employer]re[employer] dictation software. It may contain incorrect words, spelling, and punctuation that were not noted in checking the note before signing. - Physical Exam Vital Signs Temp Pulse Resp BP Pulse Ox 98.1 F 70 18 104/75 94 06/30/18 09:50 06/30/18 09:50 06/30/18 09:50 06/30/18 09:50 06/30/18 09:50 Oxygen Flow Rate (L/min) 2 Oxygen Delivery Method Nasal Cannula Weight: 249 lb 12.54 oz Body Mass Index (BMI) 45.6 Finger Stick Blood Glucose 88 Intake and Output for Last 24 Hours 06/28/18 06/29/18 06/30/18 23:59 23:59 23:59 Intake Total 2165 / 2165 358 / 358 Balance 2165 / 2165 358 / 358 Microbiology Past 72 Hours 06/29/18 14:50 Gram Stain - Final Sputum, Expectorated/Coughed Respiratory Culture - Preliminary Appears to be normal respiratory christian. Further studies to follow. 06/29/18 Unknown Streptococcus pneumoniae Antigen (M - Final Urine Catheter - Catheter 06/29/18 Unknown Legionella Antigen - Final Urine Catheter - Catheter 06/28/18 23:42 Influenza Types A,B Direct FA (JOSE) - Final Mucosa - Nasopharyngeal Influenzae A Laboratory Tests Past 24 Hrs 06/30/18 05:30 WBC 4.9 RBC 4.13 L Hgb 10.7 L Hct 35.3 L MCV 85.5 MCH 25.9 L MCHC 30.3 L RDW 21.4 H RDW Differential 66.9 H Plt Count 206 MPV 8.4 Immature Gran % (Auto) 0.400 Neut % (Auto) 73.9 H Lymph % (Auto) 18.4 L Kern % (Auto) 7.1 Eos % (Auto) 0.0 Baso % (Auto) 0.2 Absolute Neuts (auto) 3.6 Absolute Lymphs (auto) 0.90 Total Counted Not Reportable Differential Comment SCANNED Anisocytosis 1+ Disposition: Home Minutes spent on discharge:: 28 Patient Condition:: Stable Meaningful Use Info Meaningful Use Diagnoses (Choose all that apply): None applicable Code Visit OBSV E&M: 84345 Observation care discharge
== END 2018-06-30 13:13 | disposition home health service (06) ==
LOC: ED 06-29 01:51 → MS3 06-29 02:18
PROVIDERS: Physician Assistant; Admitting Provider Hospitalist; Emergency Provider Emergency Medicine; Family Provider Family Medicine; PCP Family Medicine; Referring Provider Hospitalist; Visit Provider Hospitalist
DX: J10.1 Influenza due to other identified influenza virus with other respiratory manifestations (principal); J44.1 Chronic obstructive pulmonary disease with (acute) exacerbation; G47.33 Obstructive sleep apnea (adult) (pediatric); E66.01 Morbid (severe) obesity due to excess calories; I25.10 Atherosclerotic heart disease of native coronary artery without angina pectoris; E11.9 Type 2 diabetes mellitus without complications; I10 Essential (primary) hypertension; F17.210 Nicotine dependence, cigarettes, uncomplicated; J96.21 Acute and chronic respiratory failure with hypoxia; E87.6 Hypokalemia; F32.9 Major depressive disorder, single episode, unspecified; G25.81 Restless legs syndrome; K21.9 Gastro-esophageal reflux disease without esophagitis; N32.81 Overactive bladder; Z91.19 Patient's noncompliance with other medical treatment and regimen; Z68.42 Body mass index [BMI] 45.0-49.9, adult; Z71.3 Dietary counseling and surveillance; Z79.899 Other long term (current) drug therapy; Z79.02 Long term (current) use of antithrombotics/antiplatelets; Z98.84 Bariatric surgery status; K46.9 Unspecified abdominal hernia without obstruction or gangrene; Z99.81 Dependence on supplemental oxygen
CPT/HCPCS: 36415; 71045; 80048; 82040; 83605; 83880; 85025; 87040; 87070; 87205; 87449; 87804; 93005; 94640; 94667; 94668; 96361; 96365; 96366; 96367; 96368; 96372; 96375; 96376; 97162; 97165; 97530; 97802; 99218; 99285; 99406; J7030; G0378

== ENCOUNTER → 2018-07-14 12:26 | Outpatient (CLI) | payer MEDICARE, SELFPAY ==
[2017-12-22 12:49] VITALS: BMI 49.4
[2018-06-29 02:48] VITALS: BMI 45.6
--- NOTE | 2018-07-14 12:28 | STEWCON_ITS ---
Reason For Study: PRE OP Stress Results Protocol: Dobutamine with definity Maximum Predicted HR: 144 bpm Target HR: 122 bpm % Maximum Predicted HR: 91 % Heart Stage Duration Rate BP Comment (mm:ss) (bpm) BASELINE 82 141/741 CC DEFINITY DOBUTAMINE 10 MCG 3:00 88 129/691 CC DEFINITY DOBUTAMINE 20 1 CC DEFINITY, JAW DISCOMFORT, PRESSURE FEELING, O2 PLACED MCG 2:58 131 134/84AT 2L NC RECOVERY 96 131/73JAW PAIN RESOLVED Stress Duration: 5:58 mm:ss Maximum Stress HR: 131 bpm Baseline Echocardiogram Findings The estimated ejection fraction is 65 %. Stress Echo Wall motion Data Resting WM Intermediate WM Stress WM Resting Wall Motion Wall Motion Stress No regional wall motion No regional wall motion abnormalities noted. abnormalities noted. EKG Data The baseline ECG displays normal sinus rhythm. The patient was titrated from 10 mcg to a maximum of 20 mcg of dobutamine during the stress. The maximum heart rate attained was 131 beats per minute. This was 90% of maximum predicted heart rate. At peak infusion, upsloping ST changes only were noted, which did not meet the criteria for ischemia. No clinical angina was noted. Interpretation Summary The estimated ejection fraction is 65 %. Normal, adequate, dobutamine echocardiogram. Negative for ischemia by EKG and echocardiographic criteria. No anginal symptoms noted. Rare PVCs noted. Rare PACs noted. Test terminated due to the attainment of target heart rate. The patient did develop some jaw pain at peak infusion which then resolved 10 minutes into recovery. No associated wall motion normalities noted. Decreased sensitivity due to difficult echo windows requiring Definity enhancing agent. Final LVEF is 75%. No complications. The study was technically difficult. Contrast injection was performed. Ordering Physician: Stephon Roblero Referring Physician: Stephon Roblero Performed By: Cyndy Quan, RDCS, RVT
== END ==
PROVIDERS: Family Provider Family Medicine; PCP Family Medicine; Referring Provider Internal Medicine Cardiovascular Disease; Visit Provider Internal Medicine Cardiovascular Disease
DX: I25.10 Atherosclerotic heart disease of native coronary artery without angina pectoris (principal); Z95.5 Presence of coronary angioplasty implant and graft
CPT/HCPCS: 93017; 93350; J7040; Q9957; A4216; C8928

== ENCOUNTER 2018-08-17 17:23 | Emergency (ER) | payer MEDICARE, SELFPAY ==
[2017-12-22 12:49] VITALS: BMI 49.4
[2018-06-29 02:48] VITALS: BMI 45.6
[2018-08-17 17:24] VITALS: BP 129/85; PULSE 107; RESP 20; TEMP 36.4; O2SAT 90; BMI 44.8
--- NOTE | 2018-08-17 18:04 | EKG12_ITS ---
Test Reason : Blood Pressure : / mmHG Vent. Rate : 109 BPM Atrial Rate : 109 BPM P-R Int : 134 ms QRS Dur : 082 ms QT Int : 364 ms P-R-T Axes : 038 032 083 degrees QTc Int : 490 ms Sinus tachycardia Septal infarct , age undetermined Abnormal ECG Confirmed by SANDI LEI, WILBERTO ([id number]), photo editor ANDIE GARY ([id number]) on 08/22/2018 8:23:50 AM Referred By: FELICIANO Confirmed By:WILBERTO JUNIOR MD
--- NOTE | 2018-08-17 18:04 | CT_ITS ---
We are attempting to reach an attending provider to discuss findings. An addendum with communication details will be sent when the communication is complete. STUDY: CT ABDOMEN AND PELVIS WITH CONTRAST REASON FOR EXAM: Female, 77 years old. Pain and vomiting. RADIATION DOSAGE (If Supplied By Facility): CTDIvol = ( 18.62 ) mGy, DLP = ( 1312.91 ) mGycm TECHNIQUE: Transaxial images were obtained from the dome of the diaphragm to the symphysis pubis without oral contrast. 100ml ml of Isovue 300 contrast was administered. Sagittal and coronal images were reconstructed. Individualized dose optimization techniques were used for this CT. COMPARISON: 05/30/2018. FINDINGS: There are mild patchy opacities at the lung bases which are improved when compared with 05/30/2018. The visualized portions of the heart and pericardium are within normal limits. Again noted are coronary artery calcifications. The patient is status post cholecystectomy. There is stable mild biliary duct dilatation. The liver is within normal limits. There are no suspicious hepatic lesions. The spleen is normal in size. The pancreas is within normal limits. The adrenal glands are within normal limits. There are no renal or ureteral stones. There is no hydronephrosis. There is a stable cyst in the right kidney. The patient is status post gastric bypass. There is a small hiatal hernia. The stomach is distended. There is diffuse dilatation of the entire small bowel and the ascending colon and proximal portion of the transverse colon. There is a ventral hernia which contains a portion of the transverse colon. The transverse colon is collapsed beyond this point. This is consistent with a colonic obstruction of the mid transverse colon. The transition point is contained within a ventral hernia. These findings are similar to the study dated 05/30/2018. There is pneumatosis noted in the cecum and ascending colon. This is new when compared with the prior exam. The appendix is distended with fluid which is likely due to the colonic obstruction. The aorta is normal in caliber. Again noted are atherosclerotic calcifications in the aorta and its branches. There is no abdominal or pelvic free air, free fluid, fluid collection or lymphadenopathy. There are no destructive osseous lesions. CT/Abdomen/Pelvis W IV Cont ONLY IMPRESSION: Colonic obstruction at the level of the mid transverse colon secondary to a ventral hernia. Distention of the proximal colon, entire small bowel and the stomach. These findings are similar to the study dated 05/30/2018. Pneumatosis in the cecum and ascending colon which was not present on the prior exam. Mild patchy opacities at the lung bases which are improved when compared with the prior exam. Atherosclerosis and coronary artery disease. Electronically Signed: Mike Alvarez, at 19:30 EDT Tel , Service support ,
--- NOTE | 2018-08-17 18:04 | RAD_ITS ---
STUDY: X-RAY CHEST REASON FOR EXAM: Female, 77 years old. Chest pain TECHNIQUE: Frontal view of the chest COMPARISON: 06/28/2018 FINDINGS: The lungs are clear. There are no pleural effusions. There is no pneumothorax. The heart is mildly enlarged, but stable in size. The visualized osseous structures are within normal limits. RAD/Chest 1 View (Portable) IMPRESSION: No acute thoracic pathology. Electronically Signed: Mike Alvarez, at 18:34 EDT Tel , Service support ,
--- NOTE | 2018-08-17 18:06 | ED.VIS.GI ---
History of Present Illness Chief Complaint: Abd Pain Informant: Patient - Abdominal Pain/Flank Pain Onset: Yesterday Context: Gradual Onset Timing: Continuous Quality: Aching Location: - - periumbilical at my hernia Current Severity: Severe Maximum Severity: Severe Worsened by: Food Relieved by: Nothing - Nausea/Vomiting/Emesis GI Symptom: Nausea, Vomiting Quality: - - bilious. Negative for: Blood streaks, Coffee ground, Hematemesis - Diarrhea/Melena/Hematochezia GI Symptom: - - small amt of loose stool today. Negative for: Diarrhea, Melena, Hematochezia Associated Symptoms: Negative for: Dysuria, Frequency, Hematuria, Urgency Narrative: Patient states she has had a ventral hernia that has been hurting off and on for a year or so, and states since I am on Plavix from my heart, they will not do surgery. History is limited because she is so ill and vomiting at the bedside, and gives me limited answers to questions when she is not vomiting. Pain seems colicky. No radiation. It is everywhere but focused over her ventral hernia. - Past Medical History (1) Asthma Status: Chronic (2) Atherosclerosis of coronary artery of [place] heart without angina pectoris Status: Chronic Comment: WYQ-EUM-Ojnhnl LAD and MUSHTAQ to 2 tandem lesions Prox LAD 01/20/2018 KDG-JMC-Tspt RCA 03/22/13 ZYQ-XSB-Tzsvdr RCA 2000 and 2002 (3) Chronic hypoxemic respiratory failure Status: Chronic (4) HTN (hypertension) Status: Chronic (5) History of COPD Status: Chronic (6) History of coronary artery stent placement Status: Chronic Comment: TNP-SNF-Uisaye LAD (2.25 X 24 Promus Synergy) and MUSHTAQ to 2 tandem lesions Prox LAD (3.5 X 24 Promus Synergy) 01/20/2018 UHN-VKN-Wmnv RCA 03/22/13 FZK-LEI-Bgnnda RCA 2000 and 2002 (7) History of diabetes mellitus, type II Status: Chronic (8) History of gastroesophageal reflux (GERD) Status: Chronic (9) Hyperlipidemia Status: Chronic (10) Obesities, morbid Status: Chronic (11) Obstructive sleep apnea Status: Chronic (12) Stenosis of left subclavian artery Status: Chronic Comment: stent the left subclavian with a 7 x 39 Poonam (13) VBI (vertebrobasilar insufficiency) Status: Chronic Past Medical History - Allergies and Home Meds Allergies/Adverse Reactions: Allergies aspirin [ASA] Allergy (Severe, Verified 08/17/18 17:25) Hives bupropion [From Wellbutrin] Allergy (Verified 08/17/18 17:25) Unknown codeine Allergy (Verified 08/17/18 17:25) Hives meperidine HCl [From Demerol] Allergy (Verified 08/17/18 17:25) Hives naproxen sodium [From Anaprox] Allergy (Verified 08/17/18 17:25) Hives propoxyphene HCl [From Darvon] Allergy (Verified 08/17/18 17:25) Hives Sulfa (Sulfonamide Antibiotics) Allergy (Verified 08/17/18 17:25) hives, trouble breathing gabapentin Adverse Reaction (Intermediate, Verified 08/17/18 17:25) Mental status change, foggy headed NSAIDS (Non-Steroidal Anti-Inflamma Adverse Reaction (Verified 08/17/18 17:25) Hives Primary Care Physician: Vicente Raya III, MD [Primary Care Provider] - Surgical History: angioplasty, - - 3 heart stents, L subclavian artery stent, bariatric surgery and , R carotid endarterectemy Smoking Status: Current every day smoker Alcohol: None Drugs: None - Family History Maternal Family History: Family History (Last Reviewed 06/29/18 @ 03:46 by Omer Hoffman MD) Mother CVA (cerebral vascular accident) Father Asthma Hypertension High blood cholesterol level Arthritis Family History: Reports: Stroke Review of Systems ROS: Unable to Obtain - due to condition General: Reports: Malaise. Denies: Chills, Fever Cardiovascular: Denies: Chest pain - not currently Respiratory: Denies: Dyspnea Gastrointestinal: Reports: Abdominal pain, Nausea, Vomiting. Denies: Melena, Hematochezia Genitourinary: Denies: Dysuria, Hematuria, Frequency Musculoskeletal: Denies: Neck pain, Back pain, Swelling, Extremity Pain Skin: Denies: Rash, Wounds Physical Exam Vital Signs/Narrative: Vital Signs Temp Pulse Resp BP Pulse Ox 08/17/18 17:24 97.6 F L 107 H 20 H 129/85 H 90 Inital Vital Signs reviewed: Yes General: Well nourished, Well developed, Obese, Acute Distress - painful, vomiting Head: Normocephalic, Atraumatic Eyes: Perrl, EOMI ENT: Moist mucous membranes, No rhinorrhea Neck: Supple, Nontender Cardiovascular: Regular rate, Regular rhythm, No murmurs, Tachycardia - mild Respiratory: No distress, CTA bilaterally, Chest nontender Abdomen: Soft, Normal bowel sounds, Guarding, Ventral hernia - extremely tender, not easily reducible. Negative for: Rebound tenderness Back: Nontender, Normal Inspection. Negative for: CVA tenderness Extremities: Nontender, No edema Skin: Normal color, No rash, No Trauma Neurological: Alert, Oriented x3, Cranial nerves II-XII grossly intact, Normal Strength, Normal Sensation Psychological: - - anxious Diagnostic/Tx/Re-eval Impressions Abdomen/Pelvis CT 08/17/18 18:04 IMPRESSION: Colonic obstruction at the level of the mid transverse colon secondary to a ventral hernia. Distention of the proximal colon, entire small bowel and the stomach. These findings are similar to the study dated 05/30/2018. Pneumatosis in the cecum and ascending colon which was not present on the prior exam. Mild patchy opacities at the lung bases which are improved when compared with the prior exam. Atherosclerosis and coronary artery disease. Electronically Signed: Mike Alvarez, at 19:30 EDT Tel , Service support , ADDENDUM: 08/17/18 194 Chest X-Ray 08/17/18 18:04 IMPRESSION: No acute thoracic pathology. Electronically Signed: Mike Alvarez, at 18:34 EDT Tel , Service support , 08/17/18 18:04 CT Abd [Abdomen/Pelvis W IV Cont ONLY] [CT] Stat Chest 1 View (Portable) [RAD] Stat Laboratory Results 08/17/18 08/17/18 17:53 17:53 WBC 9.3 RBC 5.51 H Hgb 14.7 Hct 46.0 MCV 83.5 MCH 26.7 L MCHC 32.0 RDW 17.5 H RDW Differential 54.0 H Plt Count 279 MPV 8.9 Immature Gran % (Auto) 0.100 Neut % (Auto) 80.1 H Lymph % (Auto) 7.9 L [place] % (Auto) 11.7 H Eos % (Auto) 0.1 Baso % (Auto) 0.1 Absolute Neuts (auto) 7.5 Absolute Lymphs (auto) 0.74 L Total Counted Not Reportable Sodium 139 Potassium 3.9 Chloride 102 Carbon Dioxide 28.0 Anion Gap 9 BUN 22 H Creatinine 0.92 Estim Creat Clear Calc 41.14 Est GFR (MDRD) Af Amer 76 Est GFR (MDRD) Non-Af 63 BUN/Creatinine Ratio 23.9 H Glucose 160 H Calcium 9.3 Total Bilirubin 0.70 AST 33 ALT 22 Alkaline Phosphatase 116 Troponin I 0.053 H Total Protein 8.7 H Albumin 3.8 Globulin 4.9 H Albumin/Globulin Ratio 0.8 L - Rhythm Strip Rhythm Strip: Sinus Tach Rate: 109 Ectopy: None - EKG Initial EKG Interpretation: Sinus Tachycardia, S-T Depression - laterally less than 1mm: I, aVL, V4-V6, - - no acute ST elevation Prior: Changed Follow-up EKG Interpretation: No Acute Injury Pattern - Improved, almost resolved ST depressions, Sinus Tachycardia - 104, S-T Depression - Less than 1 mm V4-V5, 1, aVL --improved - Medical Decision Making After treatment with analgesics, IV fluids, and Zofran, she is improved. On reexamination her ventral hernia is soft and now reducible, not firm like it was initially. This is similar to her prior visit where I also saw the patient, as I recall. Her CT shows similar obstructive pattern as her last CT, however, a new finding of pneumatosis coli is seen in the cecum and ascending colon. Additionally her troponin returned slightly elevated, nonspecifically. She currently is chest pain-free. I had initially discussed with Dr. Roblero, who advised cycling her enzymes if she is admitted, and obtaining a stress echo in the morning if she does not go over one on her troponin. However, I discussed with surgery Dr. Banda who knows the patient and recommends that she have a surgical evaluation at [facility] urgently. Patient is reluctantly amenable to this. Discussed with medicine and surgery at [facility], she will be admitted to the medical service telemetry. After the discussion with the transfer center/physicians, nursing was concerned that her heart rate was up to the 140. She was in pain, and treated with another dose of morphine prior to that notice. I had the EKG repeated, it shows sinus tachycardia at 104, with improvement in the somatic cardio ischemic changes. No other acute abnormalities. ED Disposition - Plan for ED Patient: Disposition: [facility] - Main Diagnosis: Intermittent chest pain, Elevated troponin, Pneumatosis coli, Ventral hernia with bowel obstruction Referrals: Vicente Raya III, MD [Primary Care Provider] -
--- NOTE | 2018-08-17 18:10 | ED.DCSUM_ITS ---
History of Present Illness Chief Complaint: Abd Pain Informant: Patient - Abdominal Pain/Flank Pain Onset: Yesterday Context: Gradual Onset Timing: Continuous Quality: Aching Location: - - periumbilical at my hernia Current Severity: Severe Maximum Severity: Severe Worsened by: Food Relieved by: Nothing - Nausea/Vomiting/Emesis GI Symptom: Nausea, Vomiting Quality: - - bilious. Negative for: Blood streaks, Coffee ground, Hematemesis - Diarrhea/Melena/Hematochezia GI Symptom: - - small amt of loose stool today. Negative for: Diarrhea, Melena, Hematochezia Associated Symptoms: Negative for: Dysuria, Frequency, Hematuria, Urgency Narrative: Patient states she has had a ventral hernia that has been hurting off and on for a year or so, and states since I am on Plavix from my heart, they will not do surgery. History is limited because she is so ill and vomiting at the bedside, and gives me limited answers to questions when she is not vomiting. Pain seems colicky. No radiation. It is everywhere but focused over her ventral hernia. - Past Medical History (1) Asthma Status: Chronic (2) Atherosclerosis of coronary artery of [place] heart without angina pectoris Status: Chronic Comment: [id number]-SIK-Zbxcon LAD and MUSHTAQ to 2 tandem lesions Prox LAD 01/20/2018 [id number]-VKU-Hdru RCA 03/22/13 YXA-ITS-Xkfstl RCA 2000 and 2002 (3) Chronic hypoxemic respiratory failure Status: Chronic (4) HTN (hypertension) Status: Chronic (5) History of COPD Status: Chronic (6) History of coronary artery stent placement Status: Chronic Comment: SAQ-ZWZ-Otkfaj LAD (2.25 X 24 Promus Synergy) and MUSHTAQ to 2 tandem lesions Prox LAD (3.5 X 24 Promus Synergy) 01/20/2018 BAF-MGY-Qvpf RCA 03/22/13 PXY-JFQ-Tssnac RCA 2000 and 2002 (7) History of diabetes mellitus, type II Status: Chronic (8) History of gastroesophageal reflux (GERD) Status: Chronic (9) Hyperlipidemia Status: Chronic (10) Obesities, morbid Status: Chronic (11) Obstructive sleep apnea Status: Chronic (12) Stenosis of left subclavian artery Status: Chronic Comment: stent the left subclavian with a 7 x 39 Poonam (13) VBI (vertebrobasilar insufficiency) Status: Chronic Past Medical History - Allergies and Home Meds Allergies/Adverse Reactions: Allergies aspirin [ASA] Allergy (Severe, Verified 08/17/18 17:25) Hives bupropion [From Wellbutrin] Allergy (Verified 08/17/18 17:25) Unknown codeine Allergy (Verified 08/17/18 17:25) Hives meperidine HCl [From Demerol] Allergy (Verified 08/17/18 17:25) Hives naproxen sodium [From Anaprox] Allergy (Verified 08/17/18 17:25) Hives propoxyphene HCl [From Darvon] Allergy (Verified 08/17/18 17:25) Hives Sulfa (Sulfonamide Antibiotics) Allergy (Verified 08/17/18 17:25) hives, trouble breathing gabapentin Adverse Reaction (Intermediate, Verified 08/17/18 17:25) Mental status change, foggy headed NSAIDS (Non-Steroidal Anti-Inflamma Adverse Reaction (Verified 08/17/18 17:25) Hives Primary Care Physician: Vicente Raya III, MD [Primary Care Provider] - Surgical History: angioplasty, - - 3 heart stents, L subclavian artery stent, bariatric surgery and , R carotid endarterectemy Smoking Status: Current every day smoker Alcohol: None Drugs: None - Family History Maternal Family History: Family History (Last Reviewed 06/29/18 @ 03:46 by Omer Hoffman MD) Mother CVA (cerebral vascular accident) Father Asthma Hypertension High blood cholesterol level Arthritis Family History: Reports: Stroke Review of Systems ROS: Unable to Obtain - due to condition General: Reports: Malaise. Denies: Chills, Fever Cardiovascular: Denies: Chest pain - not currently Respiratory: Denies: Dyspnea Gastrointestinal: Reports: Abdominal pain, Nausea, Vomiting. Denies: Melena, Hematochezia Genitourinary: Denies: Dysuria, Hematuria, Frequency Musculoskeletal: Denies: Neck pain, Back pain, Swelling, Extremity Pain Skin: Denies: Rash, Wounds Physical Exam Vital Signs/Narrative: Vital Signs Temp Pulse Resp BP Pulse Ox 08/17/18 17:24 97.6 F L 107 H 20 H 129/85 H 90 Inital Vital Signs reviewed: Yes General: Well nourished, Well developed, Obese, Acute Distress - painful, vomiting Head: Normocephalic, Atraumatic Eyes: Perrl, EOMI ENT: Moist mucous membranes, No rhinorrhea Neck: Supple, Nontender Cardiovascular: Regular rate, Regular rhythm, No murmurs, Tachycardia - mild Respiratory: No distress, CTA bilaterally, Chest nontender Abdomen: Soft, Normal bowel sounds, Guarding, Ventral hernia - extremely tender, not easily reducible. Negative for: Rebound tenderness Back: Nontender, Normal Inspection. Negative for: CVA tenderness Extremities: Nontender, No edema Skin: Normal color, No rash, No Trauma Neurological: Alert, Oriented x3, Cranial nerves II-XII grossly intact, Normal Strength, Normal Sensation Psychological: - - anxious Diagnostic/Tx/Re-eval Impressions Abdomen/Pelvis CT 08/17/18 18:04 IMPRESSION: Colonic obstruction at the level of the mid transverse colon secondary to a ventral hernia. Distention of the proximal colon, entire small bowel and the stomach. These findings are similar to the study dated 05/30/2018. Pneumatosis in the cecum and ascending colon which was not present on the prior exam. Mild patchy opacities at the lung bases which are improved when compared with the prior exam. Atherosclerosis and coronary artery disease. Electronically Signed: Mike Alvarez, at 19:30 EDT Tel , Service support , ADDENDUM: 08/17/18 194 Chest X-Ray 08/17/18 18:04 IMPRESSION: No acute thoracic pathology. Electronically Signed: Mike Alvarez, at 18:34 EDT Tel , Service support , 08/17/18 18:04 CT Abd [Abdomen/Pelvis W IV Cont ONLY] [CT] Stat Chest 1 View (Portable) [RAD] Stat Laboratory Results 08/17/18 08/17/18 17:53 17:53 WBC 9.3 RBC 5.51 H Hgb 14.7 Hct 46.0 MCV 83.5 MCH 26.7 L MCHC 32.0 RDW 17.5 H RDW Differential 54.0 H Plt Count 279 MPV 8.9 Immature Gran % (Auto) 0.100 Neut % (Auto) 80.1 H Lymph % (Auto) 7.9 L [place] % (Auto) 11.7 H Eos % (Auto) 0.1 Baso % (Auto) 0.1 Absolute Neuts (auto) 7.5 Absolute Lymphs (auto) 0.74 L Total Counted Not Reportable Sodium 139 Potassium 3.9 Chloride 102 Carbon Dioxide 28.0 Anion Gap 9 BUN 22 H Creatinine 0.92 Estim Creat Clear Calc 41.14 Est GFR (MDRD) Af Amer 76 Est GFR (MDRD) Non-Af 63 BUN/Creatinine Ratio 23.9 H Glucose 160 H Calcium 9.3 Total Bilirubin 0.70 AST 33 ALT 22 Alkaline Phosphatase 116 Troponin I 0.053 H Total Protein 8.7 H Albumin 3.8 Globulin 4.9 H Albumin/Globulin Ratio 0.8 L - Rhythm Strip Rhythm Strip: Sinus Tach Rate: 109 Ectopy: None - EKG Initial EKG Interpretation: Sinus Tachycardia, S-T Depression - laterally less than 1mm: I, aVL, V4-V6, - - no acute ST elevation Prior: Changed Follow-up EKG Interpretation: No Acute Injury Pattern - Improved, almost resolved ST depr essions, Sinus Tachycardia - 104, S-T Depression - Less than 1 mm V4-V5, 1, aVL --improved - Medical Decision Making After treatment with analgesics, IV fluids, and Zofran, she is improved. On reexamination her ventral hernia is soft and now reducible, not firm like it was initially. This is similar to her prior visit where I also saw the patient, as I recall. Her CT shows similar obstructive pattern as her last CT, however, a new finding of pneumatosis coli is seen in the cecum and ascending colon. Additionally her troponin returned slightly elevated, nonspecifically. She currently is chest pain-free. I had initially discussed with Dr. Roblero, who advised cycling her enzymes if she is admitted, and obtaining a stress echo in the morning if she does not go over one on her troponin. However, I discussed with surgery Dr. Banda who knows the patient and recommends that she have a surgical evaluation at [facility] urgently. Patient is reluctantly amenable to this. Discussed with medicine and surgery at [facility], she will be admitted to the medical service telemetry. After the discussion with the transfer center/physicians, nursing was concerned that her heart rate was up to the 140. She was in pain, and treated with another dose of morphine prior to that notice. I had the EKG repeated, it shows sinus tachycardia at 104, with improvement in the somatic cardio ischemic changes. No other acute abnormalities. ED Disposition - Plan for ED Patient: Disposition: [facility] - Main Diagnosis: Intermittent chest pain, Elevated troponin, Pneumatosis coli, Ventral hernia with bowel obstruction Referrals: Vicente Raya III, MD [Primary Care Provider] -
[2018-08-17] MEDS: 0.9% Normal Saline 1,000 ML 999 ML IV (18:16)
[2018-08-17] MEDS: Morphine 4 MG/ML Syringe IV ×2 (18:17→20:34)
[2018-08-17] MEDS: Ondansetron 4 MG/2 ML Vial IV (18:17)
--- NOTE | 2018-08-17 18:26 | ED.RN ---
pt o2 sat at 78 %. placed on o2 dr aware--5 liters
[2018-08-17 18:33] LABS: Absolute Lymphocyte Count 0.74 X10^3/ul (0.83-4.51); Absolute Neutrophil Count 7.5 X10^3/uL (2.0-7.7); Basophil# 0.01 X10^3/uL; Basophil% 0.1 % (0-1); Eosinophil# 0.01 X10^3/uL; Eosinophils% 0.1 % (0-5); Hemoglobin 14.7 g/dl (12.0-15.0); Lymphocyte # 0.74 X10^3/ul (4.0); Lymphocyte % 7.9 % (19-41); Mean Corpuscular Hgb 26.7 pg (27.0-32.0); Mean Corpuscular Volume 83.5 fL (81-99); Mean Platelet Vol. 8.9 fl (6.2-12.0); Monocyte# 1.09 X10^3/uL; Monocyte% 11.7 % (0-10); Neutrophil # 7.47 X10^3/uL (2.7-7.7); Neutrophil % 80.1 % (47-70); Platelet Count 279 K/mm3 (150-450); RBC Distribution Width CV 17.5 % (11.6-14.6); Red Blood Count 5.51 M/mm3 (4.2-5.4); White Blood Count 9.3 K/mm3 (4.4-11.0)
[2018-08-17 18:38] LABS: POSITIVE COUNT NO; POSITIVE DIFFERENTIAL NO; POSITIVE MORPHOLOGY NO
[2018-08-17 18:45] LABS: ALB/GLOB Ratio 0.8 RATIO (0.9-2.4); AST(SGOT) 33 U/L (15-37); Alanine Aminotransfer ALT/SGPT 22 U/L (13-56); Albumin, Serum 3.8 g/dL (3.2-5.0); Alkaline Phosphatase 116 U/L (45-117); Anion Gap 9 (5-15); BUN 22 mg/dL (7-18); BUN/Creat Ratio 23.9 RATIO (10-20); Calcium,Total 9.3 mg/dL (8.5-10.1); Chloride 102 mmol/L (98-107); Creatinine, Serum 0.92 mg/dL (0.55-1.02); EST Glomerular Filtration Rate 63 mL/min (>60); Est Glom Filt Rate - Afr Amer 76 mL/min (>60); Estimated Creatinine Clearance 41.14 ml/min; Globulin 4.9 g/dL (2.2-4.2); Glucose 160 mg/dL (74-106); Potassium 3.9 mmol/L (3.5-5.1); Protein, Total 8.7 g/dL (6.4-8.2); Sodium Level 139 mmol/L (136-145)
[2018-08-17 20:24] LABS: Lactic Acid 1.6 mmol/L (0.4-2.0)
[2018-08-17 20:25] VITALS: BP 134/96; PULSE 111; RESP 28
--- NOTE | 2018-08-17 21:13 | EKG12_ITS ---
Test Reason : ABD PAIN REPEAT Blood Pressure : / mmHG Vent. Rate : 104 BPM Atrial Rate : 104 BPM P-R Int : 146 ms QRS Dur : 082 ms QT Int : 358 ms P-R-T Axes : 046 032 075 degrees QTc Int : 470 ms Sinus tachycardia Septal infarct , age undetermined Abnormal ECG Confirmed by SANDI LEI, WILBERTO ([id number]), news assignment editor ANDIE GARY ([id number]) on 08/22/2018 8:24:26 AM Referred By: FELICIANO Confirmed By:WILBERTO JUNIOR MD
[2018-08-17 21:40] VITALS: PULSE 104; RESP 22
--- NOTE | 2018-08-17 21:42 | NURSING ---
ACCEPTED TO [address]
--- NOTE | 2018-08-17 21:56 | NURSING ---
JESSI [phone]
[2018-08-17] MEDS: Lidocaine 4% 5 ML Ampul 2 ML INHALATION (22:07)
--- NOTE | 2018-08-17 22:08 | RAD_ITS ---
STUDY: X-RAY - ABDOMEN/PELVIS REASON FOR EXAM: Female, 77 years old. NG tube placement. TECHNIQUE: A single AP view of the chest and upper abdomen COMPARISON: Chest, August 17, 2018 (1815 hours). FINDINGS: Normal visualized lung bases. There is an NG tube with its tip just below the diaphragm overlying the gastric air bubble. There is a distended bowel loops throughout the abdomen. There is no demonstrated free abdominal air. The visualized liver, spleen and kidneys are grossly normal in size and morphology. Normal soft tissue structures. There are diffuse degenerative changes of the visualized lumbar spine. RAD/Abdomen Single View (Portable) IMPRESSION: NG tube with its tip just below the diaphragm overlying the gastric air bubble. Electronically Signed: Umair Hernandez DO at 22:34 EDT Tel [phone], Service support ,
--- NOTE | 2018-08-17 22:08 | CPS ---
4% Lidocaine given aerosolized for NG placement.
[2018-08-17 22:47] VITALS: BP 134/96; PULSE 111; RESP 22; O2SAT 95
== END 2018-08-17 22:44 | disposition short-term general hospital (02) ==
PROVIDERS: Emergency Provider Emergency Medicine; Family Provider Family Medicine; PCP Family Medicine
DX: R07.89 Other chest pain (principal); K63.89 Other specified diseases of intestine; K43.9 Ventral hernia without obstruction or gangrene; K56.609 Unspecified intestinal obstruction, unspecified as to partial versus complete obstruction; F17.200 Nicotine dependence, unspecified, uncomplicated; Z95.5 Presence of coronary angioplasty implant and graft; Z88.6 Allergy status to analgesic agent; G47.33 Obstructive sleep apnea (adult) (pediatric); E66.01 Morbid (severe) obesity due to excess calories; E78.5 Hyperlipidemia, unspecified; K21.9 Gastro-esophageal reflux disease without esophagitis; E11.9 Type 2 diabetes mellitus without complications; J44.9 Chronic obstructive pulmonary disease, unspecified; I10 Essential (primary) hypertension; I25.10 Atherosclerotic heart disease of native coronary artery without angina pectoris; J45.909 Unspecified asthma, uncomplicated; J96.11 Chronic respiratory failure with hypoxia
CPT/HCPCS: 71045; 74018; 74177; 80053; 83605; 84484; 85025; 93005; 94640; 96361; 96374; 96375; 96376; 99285; Q9967; A4216; J2405

== ENCOUNTER 2018-09-30 19:21 | Emergency (ER) | payer OTHER, SELFPAY ==
[2017-12-22 12:49] VITALS: BMI 49.4
[2018-09-30 19:23] VITALS: BP 139/54; PULSE 55; RESP 13; TEMP 36.6; O2SAT 99; BMI 42.0
--- NOTE | 2018-09-30 20:08 | EKG12_ITS ---
Test Reason : WEAKNESS Blood Pressure : / mmHG Vent. Rate : 058 BPM Atrial Rate : 058 BPM P-R Int : 218 ms QRS Dur : 084 ms QT Int : 422 ms P-R-T Axes : 063 047 047 degrees QTc Int : 414 ms Sinus bradycardia with 1st degree A-V block Otherwise normal ECG Confirmed by SANDI LEI, WILBERTO ([id number]), associate entertainment editor TEE UGARTE ([id number]) on 10/02/2018 1:48:53 PM Referred By: RENAE Confirmed By:WILBERTO JUNIOR MD
--- NOTE | 2018-09-30 20:14 | ED.VIS.GEN ---
History of Present Illness Chief Complaint: Weakness Informant: Patient Onset: Weeks Timing: Continuous Current Severity: Moderate Maximum Severity: Moderate Narrative: Patient presents with generalized weakness. She had tumultuous course of having a bowel blockage and perforation, she subsequently developed aspiration pneumonia, she is now at home but is getting progressively weak she is still on antibiotics, she has no worsening in her difficulty breathing but no improvement. She is worried that her ostomy bag keeps falling off, and she feels quite defeated. Past Medical History - Allergies and Home Meds Allergies/Adverse Reactions: Allergies aspirin [ASA] Allergy (Severe, Verified 09/30/18 19:33) Hives bupropion [From Wellbutrin] Allergy (Verified 09/30/18 19:33) Unknown codeine Allergy (Verified 09/30/18 19:33) Hives meperidine HCl [From Demerol] Allergy (Verified 09/30/18 19:33) Hives naproxen sodium [From Anaprox] Allergy (Verified 09/30/18 19:33) Hives propoxyphene HCl [From Darvon] Allergy (Verified 09/30/18 19:33) Hives Sulfa (Sulfonamide Antibiotics) Allergy (Verified 09/30/18 19:33) hives, trouble breathing gabapentin Adverse Reaction (Intermediate, Verified 09/30/18 19:33) Mental status change, foggy headed NSAIDS (Non-Steroidal Anti-Inflamma Adverse Reaction (Verified 09/30/18 19:33) Hives Primary Care Physician: Vicente Raya III, MD [Primary Care Provider] - Past Medical History: - - Hypertension, heart disease, ablation pneumonia Surgical History: angioplasty Smoking Status: Current some day smoker - Family History Maternal Family History: Family History (Last Reviewed 06/29/18 @ 03:46 by Omer Hoffman MD) Mother CVA (cerebral vascular accident) Father Asthma Hypertension High blood cholesterol level Arthritis Family History: Reports: Stroke Review of Systems All systems negative except as indicated General: Reports: Fever, Sweats Cardiovascular: Denies: Chest pain, Palpitations Respiratory: Reports: Dyspnea, Cough, Sputum Gastrointestinal: Reports: Abdominal pain. Denies: Nausea Genitourinary: Denies: Dysuria Musculoskeletal: Denies: Myalgias Neurological: Reports: Weakness. Denies: Headache Psych: Denies: Anxiety Endocrine: Denies: Polydipsia Physical Exam Vital Signs/Narrative: Vital Signs Temp Pulse Resp BP Pulse Ox 09/30/18 19:23 98 F 55 L 13 139/54 H 99 General: - - She appears chronically ill. She is morbidly obese Head: Normocephalic Eyes: Perrl. Negative for: Pale conjunctiva ENT: Dry mucous membranes Neck: Supple Cardiovascular: Regular rate, Regular rhythm Respiratory: - - Coarse bilateral breath sounds Abdomen: Soft, - - Ostomy site is intact. She has a wound VAC on her abdomen which is intact. There is no signs of cellulitis Extremities: - - Symmetric edema Skin: Normal color Neurological: Alert, Oriented x3 Psychological: - - Somewhat depressed affect Diagnostic/Tx/Re-eval - Rhythm Strip Rhythm Strip: Sinus Rhythm Rate: 58 Ectopy: None - EKG Initial EKG Interpretation: Sinus Rhythm, Non-Specific ST Changes, - - SD interval is 218, normal QTC, nonspecific ST changes. Interpreted by emergency doctor - Medical Decision Making Patient has an unremarkable work-up. She has a normal white count, slightly anemic, EKG is normal. Chest x-ray shows subtle pneumonia, she is being treated with Levaquin. She appears well. I discussed with social work right now because of insurance patient does not meet criteria for a rehab which is what the daughter had in mind, I offered to hospitalize her over the weekend however the daughter said she would take her home. I will discharge her but I told her if she worsens at all she needs to return. Otherwise patient will be discharged in stable condition Disposition discharge stable condition ED Disposition - Plan for ED Patient: [facility]position[facility] Unit Diagnosis: Weakness, Weakness acquired in ICU Instructions: WEAKNESS, Unk Cause Referrals: Vicente Raya III, MD [Primary Care Provider] - 3-5 Days
--- NOTE | 2018-09-30 20:17 | RAD_ITS ---
STUDY: X-RAY CHEST REASON FOR EXAM: Female, 77 years old. Weakness TECHNIQUE: Single AP portable view of the chest. COMPARISON: Prior study of 08/17/2018 FINDINGS: monitor worker leads are present. There is an ill-defined right upper lobe infiltrate. There is no demonstrated pleural abnormality. Normal size heart. Normal mediastinum and chloe. Normal visualized pulmonary arteries. There are calcified plaques of the thoracic aorta. Normal visualized thoracic spine. Normal visualized ribs, clavicles, and shoulders. There is no demonstrated abnormality of the visualized soft tissue structures of the upper abdomen. RAD/Chest 1 View (Portable) IMPRESSION: Ill-defined right upper lobe infiltrate, new in the interval. Calcified plaques of the thoracic aorta. Electronically Signed: Cory Wilks MD at 20:31 EDT , Service support ,
--- NOTE | 2018-09-30 20:30 | CM.ED ---
Social Work Consult: Discharge planning Informant: Dr. De La Torre Met with patient and patient daughter in room. Patient daughter stating that patient discharge from [facility] this past Tuesday (09/26/18) from a skilled stay. Patient daughter stating that patient was not ready to discharge from [facility] but that insurance denied continued coverage. Patient daughter now brought patient to ED to get assessed as patient has been getting weaker. Patient reporting poor intake. Patient lives with daughter and patient daughter has been providing 24hr care. Patient daughter able to manage colostomy and patient has home health care through [facility]. Patient daughter asking about if patient can be admitted to the TCU unit. This social director communicating that patient would need insurance approval to be admitted to the TCU and insurance companies are not open on the weekends, patient daughter voicing understanding. Patient daughter stating to have all need supplies support within the home. Patient stating to be recovering and that it is just taking time. Patient/patient daughter reporting no needs in the community. Patient and patient daughter choosing to discharge back to the community to see how things go for the next few days. Support provided. Makenna Mercado MSW, LEVI
[2018-09-30 20:49] LABS: Absolute Lymphocyte Count 2.11 X10^3/uL (0.83-4.51); Absolute Neutrophil Count 6.6 X10^3/uL (2.0-7.7); Basophil# 0.07 X10^3/uL; Basophil% 0.7 % (0-1); Eosinophils% 3.9 % (0-5); Hematocrit 26.4 % (37-47); Hemoglobin 8.1 g/dL (12.0-15.0); Lymphocyte # 2.11 X10^3/ul (4.0); Lymphocyte % 20.5 % (19-41); Mean Corp Hgb Conc 30.7 g/dL (32-36); Mean Corpuscular Hgb 27.7 pg (27.0-32.0); Mean Corpuscular Volume 90.4 fL (81-99); Mean Platelet Vol. 8.9 fl (6.2-12.0); Monocyte# 0.88 X10^3/uL; Monocyte% 8.5 % (0-10); NRBC Flagged by Analyzer 0 % (0-5); Neutrophil # 6.64 X10^3/uL (2.7-7.7); Neutrophil % 64.4 % (47-70); Platelet Count 302 K/mm3 (150-450); RBC Distribution Width CV 17.7 % (11.6-14.6); RBC Distribution Width SD 59.4 fl (35.1-43.9); Red Blood Count 2.92 M/mm3 (4.2-5.4); White Blood Count 10.3 K/mm3 (4.4-11.0)
[2018-09-30 21:05] LABS: ALB/GLOB Ratio 0.7 RATIO (0.9-2.4); AST(SGOT) 16 U/L (15-37); Alanine Aminotransfer ALT/SGPT 10 U/L (13-56); Albumin, Serum 2.8 g/dL (3.2-5.0); Alkaline Phosphatase 81 U/L (45-117); Anion Gap 4 (5-15); BUN 21 mg/dL (7-18); BUN/Creat Ratio 16.2 RATIO (10-20); Calcium,Total 8.9 mg/dL (8.5-10.1); Chloride 107 mmol/L (98-107); EST Glomerular Filtration Rate 42 mL/min (>60); Est Glom Filt Rate - Afr Amer 51 mL/min (>60); Estimated Creatinine Clearance 29.12 ml/min; Globulin 4.2 g/dL (2.2-4.2); Glucose 78 mg/dL (74-106); Potassium 5.2 mmol/L (3.5-5.1); Sodium Level 137 mmol/L (136-145)
[2018-09-30 21:18] LABS: Red Blood Cells-Urine 0 SEEN /hpf (0-5)
[2018-09-30 21:25] LABS: Color, Urine Yellow (Yellow); Glucose, Dipstick Normal (Normal); Ketone-Dipstick Negative (Negative); Leukocyte Esterase-Dipstick 25 /ul (Negative); Nitrite-Dipstick Negative (Negative); Occult Blood-Urine 10 /ul (Negative); Protein-Dipstick 15 mg/dl (Negative); Specific Gravity, Urine 1.015 (1.002-1.030); Urine Bilirubin Dipstick Negative (Negative); Urine Clarity Clear (Clear); Urine Urobilinogen Normal (Normal)
[2018-09-30 21:33] LABS: Squamous Epithelial Cells - UA 0-5 SEEN /hpf (5-10); White Blood Cells 0-5 SEEN /hpf (0-5)
[2018-09-30 21:34] LABS: Amorphous Sediment 1+; Bacteria 1+ /hpf (None Seen); Fine Granular Cast- Urine 0-5 SEEN /lpf (0-5); Hyaline Cast 0-5 SEEN /lpf (0-5); Mucous, Urine 1+ /hpf (<or=2+)
[2018-09-30 21:44] VITALS: BP 136/57; PULSE 78; RESP 21; O2SAT 97
[2018-09-30] MEDS: Fluconazole 100 MG Tablet PO (21:44)
== END 2018-09-30 21:45 ==
PROVIDERS: Emergency Provider Emergency Medicine; Family Provider Family Medicine; PCP Family Medicine
DX: R53.1 Weakness (principal); E66.01 Morbid (severe) obesity due to excess calories; I10 Essential (primary) hypertension; F17.200 Nicotine dependence, unspecified, uncomplicated; Z88.2 Allergy status to sulfonamides; Z88.5 Allergy status to narcotic agent; Z88.6 Allergy status to analgesic agent; J69.0 Pneumonitis due to inhalation of food and vomit
CPT/HCPCS: 36415; 71045; 80053; 81001; 84484; 85025; 93005; 99285; J7030; J7040; A4216

== ENCOUNTER 2018-11-14 20:51 | Emergency (ER) | payer MEDICARE, SELFPAY ==
[2017-12-22 12:49] VITALS: BMI 49.4
[2018-11-14 20:53] VITALS: BP 97/55; PULSE 71; RESP 18; TEMP 36.8; O2SAT 93
[2018-11-14 20:55] VITALS: BP 97/55; PULSE 71; RESP 18; TEMP 36.8; O2SAT 93; BMI 39.8
[2018-11-14 21:45] VITALS: O2SAT 84
--- NOTE | 2018-11-14 21:45 | NURSING ---
PT PO DROP TO 84% ON RA. FAMILY STATED PT WEARS 02 AT 2LNC AT HOME. 02 AT 3LNC APPLIED
--- NOTE | 2018-11-14 21:55 | CT_ITS ---
HISTORY:ABDOMEN PAIN,NAUSEA AND CHILLS,POST-OP COLOSTOMY 6-19,PT HAS WOUND AREA THAT IS DRAININGHX:COPD,CHOLECYSTECTOMY,GATRIC SURGERY ABDOMEN PAIN,NAUSEA AND CHILLS,POST-OP COLOSTOMY 6-19,PT HAS WOUND AREA THAT IS DRAININGHX:COPD,CHOLECYSTECTOMY,GATRIC SURGERY TECHNIQUE: Helically acquired images were obtained of the abdomen and pelvis following IV contrast. A radiation dose optimization technique was used for this scan. IV Contrast dosage and agent:100ML Isovue 300 Oral contrast: None. COMPARISON: August 17, 2018 FINDINGS: # of images incl. paperwork: 438 LOWER CHEST: Coronary artery calcifications. Patchy infiltrates are seen within the right greater than left lower lobes. There is a groundglass nodule seen on image 6 series 2 that is incompletely imaged on this study measuring approximately 3 mm. There is also a nodular density seen on image 17 series 2 that measures approximately 1.1 cm. This is a common nations soft tissue and groundglass. This was seen on the prior study however in a similar. Patchy nodular densities seen within the right lower lobe on image 20 is new when compared to the prior study. Follow-up to clearing is recommended. Also patchy infiltrate seen within the posterior aspect of the left lower lobe. Again follow-up to clearing. LIVER: Homogeneous. No focal mass. GALLBLADDER AND BILIARY TREE: Cholecystectomy. Stable mild intrahepatic ductal dilatation no significant extrahepatic ductal dilatation for a postcholecystectomy patient KIDNEYS AND URETERS: Stable right renal cyst. No hydronephrosis. No nephrolithiasis. The ureters are not distended ADRENAL GLANDS: Non-enlarged. SPLEEN: Normal size without focal cystic or solid mass. PANCREAS: No focal cystic or solid mass. BOWEL: Patient is status post gastric bypass. The stomach is not distended. Small hiatal hernia is again noted. There is surgical change within the sigmoid colon with anastomosis seen on image 36 series 601 and axial image 54 series 2. Postsurgical changes are seen within the anterior abdominal wall. Heterogenous appearance to the subcutaneous tissue in the region of the prior ventral hernia. I do not see recurrence of the ventral hernia. Fat stranding is seen in this area however that extends to the abdominal wall with thickening of the skin extending from this level to the level of the umbilicus There is however a right-sided ostomy that is new when compared to prior study with herniated fat adjacent to the bowel seen on axial image 63 series 2. This is inferior to the prior hernia site. There is however a new hernia that is seen ventrally inferior and to the left of the new ostomy. This is in the region of the umbilicus. This does contain a loop of small bowel. No significant distention of the bowel in this area Air-fluid levels are seen within bowel loops in the left abdomen. This is adjacent to the anastomotic site. There may be early bowel obstruction in this region This may be secondary to adhesions. Consider small bowel follow-through for further evaluation if clinically indicated LYMPH NODES: No enlarged mesenteric or retroperitoneal lymph nodes. PERITONEUM: No ascites or free air. No other fluid collection. VESSELS: Aorta is non-dilated. URINARY BLADDER: Poorly distended. There is gas within the bladder. This may be iatrogenic. Correlate clinically REPRODUCTIVE ORGANS: No pelvic masses or pelvic ascites. ABDOMINAL WALL: No discrete abdominal or pelvic wall hernia observed. BONES: No lytic or blastic abnormality observed. CT/Abdomen/Pelvis W IV Cont ONLY IMPRESSION: Prior ventral hernia repair. Fat stranding is seen within the subcutaneous tissue in the region of the prior hernia repair. There is also skin thickening that extends from this area to the umbilicus. A new hernia is now seen at the level of the umbilicus that does contain a loop of bowel however I do not see obstruction. There is an anastomosis seen in the area of the prior hernia. There is bowel in this region that does have air-fluid levels with mildly distended bowel seen in the left abdomen. This may represent a developing obstruction secondary to adhesions. Consider small bowel follow-through for further evaluation of clinically indicated Right lower quadrant ostomy. There is also fat extending into the ostomy site adjacent to the bowel. Patchy infiltrates are seen within the right greater than left lower lobes. I would follow-up to clearing. There is a prominent nodular density seen within the right lower lobe that is stable however additional nodular densities are now seen on today's study the may represent patchy infiltrate. Again follow-up to clearing Post gastric bypass with hiatal hernia similar to prior study Interval colonic resection as discussed Individualized dose optimization techniques were used for this CT. at 2342 Reported and signed by: Olimpia Johnson DO Electronically Signed: Olimpia Johnson DO at 23:40 EDT Tel , Service support ,
[2018-11-14 22:06] LABS: Hematocrit 33.2 % (37-47); Hemoglobin 10.4 g/dL (12.0-15.0); Mean Corp Hgb Conc 31.3 g/dL (32-36); Mean Corpuscular Hgb 29.5 pg (27.0-32.0); Mean Corpuscular Volume 94.1 fL (81-99); Mean Platelet Vol. 9.3 fl (6.2-12.0); Platelet Count 301 K/mm3 (150-450); RBC Distribution Width CV 17.6 % (11.6-14.6); RBC Distribution Width SD 61.5 fl (35.1-43.9); Red Blood Count 3.53 M/mm3 (4.2-5.4); White Blood Count 10.2 K/mm3 (4.4-11.0)
[2018-11-14 22:20] LABS: Anion Gap 5 (5-15); BUN 20 mg/dL (7-18); BUN/Creat Ratio 17.7 RATIO (10-20); Calcium,Total 8.7 mg/dL (8.5-10.1); Chloride 111 mmol/L (98-107); Creatinine, Serum 1.13 mg/dL (0.55-1.02); EST Glomerular Filtration Rate 50 mL/min (>60); Est Glom Filt Rate - Afr Amer 60 mL/min (>60); Estimated Creatinine Clearance 32.98 ml/min; Glucose 73 mg/dL (74-106); Potassium 4.7 mmol/L (3.5-5.1); Sodium Level 142 mmol/L (136-145)
[2018-11-14] MEDS: 0.9% Normal Saline 1,000 ML 1000 ML IV (22:21)
[2018-11-14] MEDS: Ondansetron 4 MG/2 ML Vial IV (22:21)
[2018-11-14 22:42] LABS: Bacteria 0 SEEN /hpf (None Seen); Mucous, Urine 0 SEEN /hpf (<or=2+); Red Blood Cells-Urine 0 SEEN /hpf (0-5); Squamous Epithelial Cells - UA 0 SEEN /hpf (5-10)
[2018-11-14 22:44] LABS: Color, Urine Yellow (Yellow); Glucose, Dipstick Normal (Normal); Ketone-Dipstick Negative (Negative); Leukocyte Esterase-Dipstick 100 /ul (Negative); Nitrite-Dipstick Negative (Negative); Occult Blood-Urine 25 /ul (Negative); Protein-Dipstick 15 mg/dl (Negative); Specific Gravity, Urine 1.015 (1.002-1.030); Urine Bilirubin Dipstick Negative (Negative); Urine Clarity Sl. Cloudy (Clear); Urine Urobilinogen Normal (Normal)
[2018-11-14 23:00] VITALS: BP 78/50; PULSE 60; RESP 16; TEMP 37.2; O2SAT 98
[2018-11-14 23:02] LABS: Hyaline Cast 0-5 SEEN /lpf (0-5)
[2018-11-14 23:03] LABS: White Blood Cells 0-5 SEEN /hpf (0-5)
[2018-11-14 23:28] VITALS: BP 82/52; PULSE 61; RESP 20; O2SAT 99
[2018-11-14] MEDS: 0.9% Normal Saline 500 ML IV.SOLN. IV (23:54)
[2018-11-15] VITALS: BP 91/46; PULSE 65; RESP 21; TEMP 37.3; O2SAT 98
--- NOTE | 2018-11-15 | ED.DCSUM_ITS ---
- ER Visit Summary Date of Service: 11/15/18 Chief Complaint: Wound check History of Present Illness: The patient is a 78 F presenting with nausea, chills, abdominal pain, requesting wound evaluation. Patient underwent surgery for a perforated bowel in August at [facility]. Family states she was at [facility] for approximately 4 weeks. She was then transferred to rehab where she was for approximately 1 month. She is now at home. She is seeing the wound center for open wounds on her abdomen. Family states that 1 of the wounds has healed and another wound has recently opened up. She denies fever. She has abdominal pain diffusely with nausea. She has no vomiting. She is having norm al output from her ostomy. Denies blood in her ostomy. Denies other complaints. Physical Examination: Vitals are stable. Patient is afebrile. Alert no acute distress. HEENT exam is unremarkable. Neck is supple. Lungs are clear and equal bilaterally. Heart is regular rate and rhythm. Abdomen ileostomy, soft mild diffuse tenderness, small open wound with no drainage or fluctuance. Extremities are unremarkable. Skin is warm and dry. No focal neurologic deficit. Remainder of exam is unremarkable. Emergency Department Course and Treatment: CBC shows hemoglobin 10.4. Chemistry showed glucose 73, BUN 20, creatinine 1.13. Urinalysis shows 0-5 white blood cells. Lactic acid 0.6. CT abdomen pelvis shows prior ventral hernia repair. Fat stranding is seen within the subcutaneous tissue in the region of the prior hernia repair. There is also skin thickening that extends from this area to the umbilicus. A new hernia is now seen at the level of the umbilicus that does contain a loop of bowel however I do not see obstruction. There is an anastomosis seen in the area of the prior hernia. There is bowel in this region that does have air-fluid levels with mildly distended bowel seen in the left abdomen. This may represent a developing obstruction secondary to adhesions. Consider small bowel follow-through for further evaluation of clinically indicated. Right lower quadrant ostomy. There is also fat extending into the ostomy site adjacent to the bowel. Patchy infiltrates are seen within the right greater than left lower lobes. There is a prominent nodular density seen within the right lower lobe that is stable however additional nodular densities are now seen on today's study the may represent patchy infiltrate. Again follow-up to clearing. Post gastric bypass with hiatal hernia similar to prior study. Interval colonic resection. Chest xray shows increased opacity seen within the lung bases. This is slightly increased in the right lung base when compared to prior study. The left lung base as a appearance of atelectasis and bronchiectasis. Blood cultures were sent. She was given Rocephin and Zithromax IV. Patient's systolic blood pressure has been in the high 80s and low 90s. Per family her blood pressure typically runs this low. She is on midodrine for chronically low blood pressure. She did not take this medication today due to nausea. She was given IV fluids and Zofran. Findings discussed with patient and family. They are agreeable to transfer to [facility]. Discussed with [facility] for transfer. Disposition: Transfer to [facility] Impression: Abdominal pain, small bowel obstruction This note was generated with [employer] dictation software. It may contain incorrect words, spelling, and punctuation that were not noted in review of the chart prior to signing ED Disposition - Plan for ED Patient: Referrals: Vicente Raya III, MD [Primary Care Provider] -
--- NOTE | 2018-11-15 00:26 | RAD_ITS ---
HISTORY:[facility] - Chest [facility] - Chest EXAM: XR Chest 1 View: COMPARISON: September 30, 2018 FINDINGS: # of images incl. paperwork: 1 LINES/DEVICES: None. LUNGS: Increased opacity is seen within the bilateral lung bases however this was present on the prior study. Slightly increased in the right lung base when compared to prior study The opacity in the left lung base has a appearance of mild bronchiectasis and atelectasis. Right upper lobe infiltrate has resolved.. There is no evidence of effusion No pneumothorax. MEDIASTINUM AND CARDIOVASCULAR STRUCTURES: Cardiac silhouette not enlarged. BONES AND SOFT TISSUES: Unremarkable. RAD/Chest 1 View (Portable) IMPRESSION: Increased opacity seen within the lung bases. This is slightly increased in the right lung base when compared to prior study. The left lung base as a appearance of atelectasis and bronchiectasis. May be of benefit to obtain a PA and lateral view for further evaluation at 0113 Reported and signed by: Olimpia Johnson DO Electronically Signed: Olimpia Johnson DO at 1:12 EDT Tel , Service support ,
--- NOTE | 2018-11-15 00:38 | PCM.HP.STD ---
History of Present Illness The patient is a 78 year old F [] Past Medical History Past Medical History (Chronic Problems): Chronic Problems (Last Reviewed 06/29/18 @ 03:45 by Omer Hoffman MD) Hyperlipidemia (Chronic) VBI (vertebrobasilar insufficiency) (Chronic) Stage 2 moderate COPD by GOLD classification (Chronic) Chronic hypoxemic respiratory failure (Chronic) History of right-sided carotid endarterectomy (Chronic ~07/2014) left subclavian artery stent (Chronic ~03/2017) Stenosis of left subclavian artery (Chronic ~03/2017) stent the left subclavian with a 7 x 39 Poonam History of coronary artery stent placement (Chronic 01/20/18) NCS-LBR-Omhchn LAD (2.25 X 24 Promus Synergy) and MUSHTAQ to 2 tandem lesions Prox LAD (3.5 X 24 Promus Synergy) 01/20/2018 EDE-QBA-Lseu RCA 03/22/13 CDF-FYH-Dxsivn RCA 2000 and 2002 Atherosclerosis of coronary artery of [place] heart without angina pectoris (Chronic) HBB-EHW-Qdnasb LAD and MUSHTAQ to 2 tandem lesions Prox LAD 01/20/2018 NKS-ZTE-Bwkm RCA 03/22/13 XKQ-UNR-Fybtdm RCA 2000 and 2002 Asthma (Chronic) HTN (hypertension) (Chronic) Tobacco abuse (Chronic) Obesities, morbid (Chronic) History of COPD (Chronic) History of diabetes mellitus, type II (Chronic) History of gastroesophageal reflux (GERD) (Chronic) Obstructive sleep apnea (Chronic) Medical History: Medical History (Last Reviewed 06/29/18 @ 03:45 by Omer Hoffman MD) Hyperlipidemia (Chronic) E78.5 Stenosis of left subclavian artery (Chronic) Onset Date: ~03/2017 I77.1 stent the left subclavian with a 7 x 39 Poonam Atherosclerosis of coronary artery of [place] heart without angina pectoris (Chronic) I25.10 RYD-IER-Lvadij LAD and MUSHTAQ to 2 tandem lesions Prox LAD 01/20/2018 NPC-UQE-Hilr RCA 03/22/13 REL-PMU-Tuccxg RCA 2000 and 2002 Asthma (Chronic) J45.909 HTN (hypertension) (Chronic) I10 Tobacco abuse (Chronic) Z72.0 History of COPD (Chronic) Z87.09 History of diabetes mellitus, type II (Chronic) Z86.39 History of gastroesophageal reflux (GERD) (Chronic) Z87.19 Obstructive sleep apnea (Chronic) G47.33 Carotid artery stenosis I65.29 Allergies aspirin [ASA] Allergy (Severe, Verified 11/14/18 20:55) Hives bupropion [From Wellbutrin] Allergy (Verified 11/14/18 20:55) Unknown codeine Allergy (Verified 11/14/18 20:55) Hives meperidine HCl [From Demerol] Allergy (Verified 11/14/18 20:55) Hives naproxen sodium [From Anaprox] Allergy (Verified 11/14/18 20:55) Hives propoxyphene HCl [From Darvon] Allergy (Verified 11/14/18 20:55) Hives Sulfa (Sulfonamide Antibiotics) Allergy (Verified 11/14/18 20:55) hives, trouble breathing gabapentin Adverse Reaction (Intermediate, Verified 11/14/18 20:55) Mental status change, foggy headed NSAIDS (Non-Steroidal Anti-Inflamma Adverse Reaction (Verified 11/14/18 20:55) Hives Home Medications: Ambulatory Orders Medication Instructions Recorded Citalopram [Celexa] 20 mg PO DAILY 02/28/13 Fluticasone 0.05% [Flonase Nasal 2 spray NASAL DAILY PRN PRN 02/28/13 [place]] Montelukast [Singulair] 10 mg PO QHS 07/08/14 Albuterol IH (ProAir) [Proair Hfa] 2 puff INHALATION Q6H PRN PRN 07/15/14 nitroglycerin 0.4 mg sublingual 0.4 mg SUBLINGUAL Q5M PRN #25 tab 12/12/17 tablet pramipexole 1 mg tablet 1 mg PO QHS PRN tab 02/14/18 Clopidogrel Bisulfate [Clopidogrel] 75 mg PO DAILY 06/29/18 Atorvastatin Calcium [Lipitor] 40 mg PO QHS 08/17/18 Beclomethasone Diprop Inhaler 1 puff INHALATION BID 08/17/18 [Qvar 80 Mcg Inhaler] Omeprazole 40 mg PO DAILY 08/17/18 Oxybutynin [Ditropan] 10 mg PO QHS 09/30/18 Loperamide [Imodium] 2 mg PO 4X/DAY 11/14/18 Midodrine HCl 5 mg PO Q8H 11/14/18 Surgical History: Surgical History (Last Reviewed 06/29/18 @ 03:45 by Omer Hoffman MD) History of right-sided carotid endarterectomy (Chronic) Onset Date: ~07/2014 Z98.890 left subclavian artery stent (Chronic) Onset Date: ~03/2017 History of coronary artery stent placement (Chronic) Onset Date: 01/20/18 Z95.5 LNL-SUM-Eddfcg LAD (2.25 X 24 Promus Synergy) and MUSHTAQ to 2 tandem lesions Prox LAD (3.5 X 24 Promus Synergy) 01/20/2018 KFT-DSZ-Lgff RCA 03/22/13 RRD-PIV-Wvoezl RCA 2000 and 2002 History of right knee joint replacement Z96.651 History of section Z98.891 History of cholecystectomy Z98.890, Z90.49 H/O bariatric surgery (Inactive) Z98.84 Surgical History: angioplasty Psychiatric History: No pertinent psych hx [employer] COM[employer] 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 Smoking Status: Current every day smoker - *Family History Maternal Family History: Family History (Last Reviewed 06/29/18 @ 03:46 by Omer Hoffman MD) Mother CVA (cerebral vascular accident) Father Asthma Hypertension High blood cholesterol level Arthritis History Items: Stroke - Physical Exam Vital Signs Temp Pulse Resp BP Pulse Ox 99.1 F 65 21 H 91/46 L 98 11/15/18 00:00 11/15/18 00:00 11/15/18 00:00 11/15/18 00:00 11/15/18 00:00 Oxygen Flow Rate (L/min) 2 Oxygen Delivery Method Room Air Weight: 98.8 kg Body Mass Index (BMI) 39.8 Finger Stick Blood Glucose 88 Intake and Output for Last 24 Hours 11/13/18 11/14/18 11/15/18 23:59 23:59 23:59 Intake Total 1000 / 1000 Balance 1000 / 1000 Laboratory Tests Past 24 Hrs 11/14/18 11/14/18 11/14/18 21:03 21:03 22:30 WBC 10.2 RBC 3.53 L Hgb 10.4 L Hct 33.2 L MCV 94.1 MCH 29.5 MCHC 31.3 L RDW Std Deviation 61.5 H RDW Coeff of Abiola 17.6 H Plt Count 301 MPV 9.3 Sodium 142 Potassium 4.7 Chloride 111 H Carbon Dioxide 26.0 Anion Gap 5 BUN 20 H Creatinine 1.13 H Estim Creat Clear Calc 32.98 Est GFR (MDRD) Af Amer 60 Est GFR (MDRD) Non-Af 50 L BUN/Creatinine Ratio 17.7 Glucose 73 L Calcium 8.7 Urine Color Yellow Urine Clarity Sl. Cloudy Urine pH 5.0 Ur Specific [place] 1.015 Urine Protein 15 H Urine Glucose (UA) Normal Urine Ketones Negative Urine Occult Blood 25 H Urine Nitrite Negative Urine Bilirubin Negative Urine Urobilinogen Normal Ur Leukocyte Esterase 100 H Urine RBC 0 SEEN Urine WBC 0-5 SEEN Ur Squamous Epith Cells 0 SEEN Urine Bacteria 0 SEEN Hyaline Casts 0-5 SEEN Urine Mucus 0 SEEN Assessment/Plan All Active Problems (Last Reviewed 06/29/18 @ 03:45 by Omer Hoffman MD) Influenza A (Acute)
[2018-11-15 00:44] VITALS: BP 88/49; PULSE 61; RESP 20; O2SAT 97
--- NOTE | 2018-11-15 00:44 | ED.RN ---
500ml bolus completed at 0030.
[2018-11-15 01:04] VITALS: BP 89/48; PULSE 56; RESP 18; TEMP 37.1; O2SAT 98
[2018-11-15 01:13] LABS: Lactic Acid 0.6 mmol/L (0.4-2.0)
[2018-11-15] MEDS: Ceftriaxone 1 GM/50 ML BAG IV (01:25)
[2018-11-15 01:50] VITALS: BP 88/46; PULSE 64; RESP 18; TEMP 37.1; O2SAT 98
== END 2018-11-15 01:56 | disposition short-term general hospital (02) ==
PROVIDERS: Emergency Provider Emergency Medicine; Family Provider Family Medicine; PCP Family Medicine
DX: K56.609 Unspecified intestinal obstruction, unspecified as to partial versus complete obstruction (principal); J47.9 Bronchiectasis, uncomplicated; K44.9 Diaphragmatic hernia without obstruction or gangrene; Z93.2 Ileostomy status; Z98.84 Bariatric surgery status; Z93.3 Colostomy status; E11.9 Type 2 diabetes mellitus without complications; I10 Essential (primary) hypertension; E78.00 Pure hypercholesterolemia, unspecified; K21.9 Gastro-esophageal reflux disease without esophagitis; Z72.0 Tobacco use; Z90.49 Acquired absence of other specified parts of digestive tract
CPT/HCPCS: 36415; 71045; 74177; 80048; 81001; 83605; 85027; 96361; 96365; 96367; 96375; 99285; J7030; P9612; Q9967; A4216; J2405

== ENCOUNTER 2019-01-25 15:33 | Emergency (ER) | payer MEDICARE, SELFPAY ==
[2017-12-22 12:49] VITALS: BMI 49.4
[2019-01-25 15:34] VITALS: BP 124/52; PULSE 63; RESP 13; TEMP 36.8; O2SAT 95; BMI 39.9
[2019-01-25 15:45] VITALS: TEMP 36.8
--- NOTE | 2019-01-25 16:03 | EKG12_ITS ---
Test Reason : Blood Pressure : / mmHG Vent. Rate : 062 BPM Atrial Rate : 062 BPM P-R Int : 210 ms QRS Dur : 074 ms QT Int : 390 ms P-R-T Axes : 040 062 085 degrees QTc Int : 395 ms Sinus rhythm with 1st degree A-V block Septal infarct , age undetermined Abnormal ECG Confirmed by SANDI LEI, WILBERTO ([id number]), acquisitions editor DANIA FULLER ([id number]) on 01/30/2019 11:20:30 AM Referred By: MAVIS Confirmed By:WILBERTO JUNIOR MD
--- NOTE | 2019-01-25 16:04 | ED.DCSUM_ITS ---
History of Present Illness Chief Complaint: Palpitations Informant: Patient Onset: Today Context: Sudden Onset Timing: Intermittent Quality: Tightness jaw Location: Viral jaw pain Current Severity: - - Resolved after second nitro Maximum Severity: Severe Worsened by: Nothing Relieved by: Sublingual nitro Associated Symptoms: Dyspnea and diaphoresis Narrative: History of asthma, coronary disease, hypercholesterolemia and former smoker. She smoked for 50 years. She states she has either 6 or 7 stents. 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 Roblero. Today she developed sudden onset of shortness of breath with diaphoresis and bilateral jaw tightness. She waited 10 minutes prior to taking first nitro. She took a second nitro proxy 5 minutes later. She is presently pain-free. She states the pain was significant and concerned her. She does have history of reflux. She denies heartburn indigestion epigastric or back pain. She denies leg pain or swelling or discoloration. There is no history of PE or DVT. She states she is compliant with her med ication. She denies hematemesis, melena hematochezia. 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 Comment: stent the left subclavian with a 7 x 39 [place] (9) Tobacco abuse Status: Chronic (10) VBI (vertebrobasilar insufficiency) Status: Chronic Past Medical History - Allergies and Home Meds Allergies/Adverse Reactions: Allergies aspirin [ASA] Allergy (Severe, Verified 01/25/19 15:41) Hives bupropion [From Wellbutrin] Allergy (Verified 01/25/19 15:41) Unknown codeine Allergy (Verified 01/25/19 15:41) Hives meperidine HCl [From Demerol] Allergy (Verified 01/25/19 15:41) Hives naproxen sodium [From Anaprox] Allergy (Verified 01/25/19 15:41) Hives propoxyphene HCl [From Darvon] Allergy (Verified 01/25/19 15:41) Hives Sulfa (Sulfonamide Antibiotics) Allergy (Verified 01/25/19 15:41) hives, trouble breathing gabapentin Adverse Reaction (Intermediate, Verified 01/25/19 15:41) Mental status change, foggy headed NSAIDS (Non-Steroidal Anti-Inflamma Adverse Reaction (Verified 01/25/19 15:41) Hives Primary Care Physician: Vicente Raya III, MD [Primary Care Provider] - Prior records reviewed: Yes Surgical History: angioplasty Lives: Alone Smoking Status: Former smoker Alcohol: None Drugs: None - Family History Maternal Family History: Family History (Last Reviewed 06/29/18 @ 03:46 by Omer Hoffman MD) Mother CVA (cerebral vascular accident) Father Asthma Hypertension High blood cholesterol level Arthritis Family History: Reports: Stroke Review of Systems General: Denies: Chills, Fever, Sweats Eyes: Denies: Visual changes - bilaterally, Diplopia Cardiovascular: Reports: Palpitations. Denies: Chest pain, Heart racing Respiratory: Reports: Dyspnea. Denies: Cough, Sputum, Dyspnea on exertion, Orthopnea, Paroxysmal nocturnal dyspnea, -, - Gastrointestinal: Denies: Abdominal pain, Nausea, Vomiting, Diarrhea, Melena, Hematochezia Genitourinary: Denies: Dysuria, Hematuria, Frequency Musculoskeletal: Denies: Myalgias, Arthralgias, Neck pain, Back pain, Swelling, Extremity Pain, -, - Skin: Denies: Rash, Wounds Neurological: Denies: Headache, Weakness, Numbness Hematologic: Denies: Easy bruising, Easy bleeding Physical Exam Vital Signs/Narrative: Vital Signs Temp Pulse Resp BP Pulse Ox 01/25/19 15:45 98.2 F 01/25/19 15:34 98.2 F 63 13 124/52 H 95 Inital Vital Signs reviewed: Yes General: Well nourished, Well developed, Obese, No Acute Distress Head: Normocephalic, Atraumatic Eyes: Perrl, EOMI. Negative for: Pale conjunctiva, Scleral icterus ENT: Moist mucous membranes, No rhinorrhea Neck: Supple, Nontender Cardiovascular: Regular rate, Regular rhythm, No murmurs, Normal S1, Normal S2 Respiratory: No distress, Chest nontender, Wheezing Abdomen: Soft, Nontender, Nondistended, Normal bowel sounds Back: Nontender, Normal Inspection Extremities: Nontender, No edema, - - There is no asymmetry, swelling, discoloration, leg vein distention, palpable cords or tenderness along the distribution of the deep venous system. Skin: Normal color, No rash Neurological: Alert, Oriented x3, Cranial nerves II-XII grossly intact, Normal Strength, Normal Sensation Psychological: Normal affect, Normal Mood Diagnostic/Tx/Re-eval Chest X-Ray - ED: 1 View, Read by ED Physician, Normal, Heart, Mediastinum, Bony Structures, No Acute Disease, Chronic Changes Impressions Chest X-Ray 01/25/19 16:05 IMPRESSION: No acute thoracic pathology. Electronically Signed: Gabino Meyers, at 16:32 EST Tel , Service support , 01/25/19 16:05 Chest 1 View (Portable) [RAD] Stat Laboratory Results 01/25/19 01/25/19 15:58 15:58 WBC 7.7 RBC 3.62 L Hgb 10.5 L Hct 34.5 L MCV 95.3 MCH 29.0 MCHC 30.4 L RDW Std Deviation 50.6 H RDW Coeff of Abiola 14.6 Plt Count 233 MPV 9.1 Immature Gran % (Auto) 0.500 Neut % (Auto) 59.0 Lymph % (Auto) 27.3 [place] % (Auto) 8.1 Eos % (Auto) 4.4 Baso % (Auto) 0.7 Absolute Neuts (auto) 4.5 Absolute Lymphs (auto) 2.10 Nucleated RBC % 0 Sodium 143 Potassium 4.9 Chloride 112 H Carbon Dioxide 26.0 Anion Gap 5 BUN 15 Creatinine 0.97 Estim Creat Clear Calc 38.41 Est GFR (MDRD) Af Amer 72 Est GFR (MDRD) Non-Af 59 L BUN/Creatinine Ratio 15.4 Glucose 80 Calcium 8.9 Troponin I < 0.015 Patient's work-up is unremarkable. In light of her risk factors, symptoms alleviated by nitroglycerin and heart score of 5 the hospitalist was contacted for placement PCU observation status with consult to cardiology. - Rhythm Strip Rhythm Strip: Sinus Rhythm Rate: 68 - EKG Initial EKG Interpretation: Sinus Rhythm - This rhythm with a ventricular rate of 62. There is evidence of first-degree AV block. LA interval is 210 ms. QS duration 74 ms. QT duration 390 ms. [place] is normal. There is decreased anterior force. KG is not normal - Medical Decision Making Multiple risk factors coronary disease and relief of her symptoms with 2 nitro concern this represents cardiac ischemia. EKG, chest x-ray and appropriate blood work was obtained. Will discuss case with cardiology once all results are available. ED Disposition - Plan for ED Patient: Disposition: Acute Care [facility] Diagnosis: Anginal equivalent, History of diabetes mellitus, type II, Obesities, morbid Diagnosis: (Ruled Out): History of coronary artery stent placement Referrals: Vicente Raya III, MD [Primary Care Provider] -
--- NOTE | 2019-01-25 16:05 | RAD_ITS ---
STUDY: X-RAY CHEST REASON FOR EXAM: Female, 78 years old. Chest pain TECHNIQUE: Frontal view of the chest COMPARISON: X-ray chest November 15, 2018 FINDINGS: The lungs are clear. There are no pleural effusions. There is no pneumothorax. The heart is normal in size. The visualized osseous structures are within normal limits. RAD/Chest 1 View (Portable) IMPRESSION: No acute thoracic pathology. Electronically Signed: Gabino Meyers, at 16:32 EST Tel , Service support ,
[2019-01-25 16:28] LABS: Anion Gap 5 (5-15); BUN 15 mg/dL (7-18); BUN/Creat Ratio 15.4 RATIO (10-20); Calcium,Total 8.9 mg/dL (8.5-10.1); Chloride 112 mmol/L (98-107); Creatinine, Serum 0.97 mg/dL (0.55-1.02); EST Glomerular Filtration Rate 59 mL/min (>60); Est Glom Filt Rate - Afr Amer 72 mL/min (>60); Estimated Creatinine Clearance 38.41 ml/min; Glucose 80 mg/dL (74-106); Potassium 4.9 mmol/L (3.5-5.1); Sodium Level 143 mmol/L (136-145)
[2019-01-25 16:33] LABS: Absolute Neutrophil Count 4.5 X10^3/uL (2.0-7.7); Basophil# 0.05 X10^3/uL; Basophil% 0.7 % (0-1); Eosinophil# 0.34 X10^3/uL; Eosinophils% 4.4 % (0-5); Hematocrit 34.5 % (37-47); Hemoglobin 10.5 g/dL (12.0-15.0); Lymphocyte % 27.3 % (19-41); Mean Corp Hgb Conc 30.4 g/dL (32-36); Mean Corpuscular Volume 95.3 fL (81-99); Mean Platelet Vol. 9.1 fl (6.2-12.0); Monocyte# 0.62 X10^3/uL; Monocyte% 8.1 % (0-10); NRBC Flagged by Analyzer 0 % (0-5); Neutrophil # 4.53 X10^3/uL (2.7-7.7); Platelet Count 233 K/mm3 (150-450); RBC Distribution Width CV 14.6 % (11.6-14.6); RBC Distribution Width SD 50.6 fl (35.1-43.9); Red Blood Count 3.62 M/mm3 (4.2-5.4); White Blood Count 7.7 K/mm3 (4.4-11.0)
--- NOTE | 2019-01-25 18:05 | ED.VISSUMM ---
- ER Visit Summary Date of Service: 01/25/19 Chief Complaint: [] History of Present Illness: The patient is a 78 F [] Physical Examination: [] Test Results: [] Emergency Department Course and Treatment: [] Treatment Plan: [] Disposition: [] Impression: [] This note was generated with [employer] dictation software. It may contain incorrect words, spelling, and punctuation that were not noted in review of the chart prior to signing ED Disposition - Plan for ED Patient: Disposition: Against Medical Advice Diagnosis: Anginal equivalent, History of diabetes mellitus, type II, Obesities, morbid Instructions: Angina Referrals: Vicente Raya III, MD [Primary Care Provider] - Stephon Roblero MD [STAFF PHYSICIAN] - 3-5 Days
[2019-01-25 18:14] VITALS: BP 162/84; PULSE 53; RESP 17; O2SAT 99
== END 2019-01-25 18:29 | disposition left against medical advice (07) ==
PROVIDERS: Emergency Provider Emergency Medicine; Family Provider Family Medicine; PCP Family Medicine
DX: I20.8 Other forms of angina pectoris (principal); E66.01 Morbid (severe) obesity due to excess calories; E11.9 Type 2 diabetes mellitus without complications; E78.00 Pure hypercholesterolemia, unspecified; I44.0 Atrioventricular block, first degree; I10 Essential (primary) hypertension; G47.33 Obstructive sleep apnea (adult) (pediatric); J44.9 Chronic obstructive pulmonary disease, unspecified; Z82.49 Family history of ischemic heart disease and other diseases of the circulatory system; Z87.891 Personal history of nicotine dependence; Z88.2 Allergy status to sulfonamides; Z88.5 Allergy status to narcotic agent; Z88.6 Allergy status to analgesic agent; Z88.8 Allergy status to other drugs, medicaments and biological substances
CPT/HCPCS: 71045; 80048; 84484; 85025; 93005; 99285

== ENCOUNTER → 2019-11-21 | Outpatient (CLI) | payer MEDICARE, SELFPAY ==
[2017-12-22 12:49] VITALS: BMI 49.4
[2019-11-09 13:42] VITALS: BMI 39.6
--- NOTE | 2019-11-21 12:37 | CDU_ITS ---
Reason For Study: Left carotid stenosis Rt. Velocities/BP Lt. Velocities/BP Prox CCA 78.6/12.1 cm/sec. Prox CCA 110.1/7.9 cm/sec. Mid CCA 63/12.1 cm/sec. Mid CCA 83.9/9 cm/sec. Dist CCA 41.3/13.3 cm/sec. Dist CCA 81.4/10.2 cm/sec. Prox ICA 78.8/19.5 cm/sec. Prox ICA 322.8/52.2 cm/sec. Mid ICA 105.8/25.6 cm/sec. Mid ICA 127.7/16.3 cm/sec. Dist ICA 88.6/24.8 cm/sec. Dist ICA 126.4/19.9 cm/sec. Rt. ICA/CCA = 1.7. Lt. ICA/CCA = 3.8. Prox ECA 54.3/6.4 cm/sec. ECA origin, No flow Rt. Vert. 16.3/7.7 cm/sec. ECA Prox, 187.3 cm/sec. Lt. Vert. 72.9/19 cm/sec. Right Extracranial There is heterogeneous, irregular atherosclerotic plaque noted in the right common carotid artery. There is intimal thickening but no significant atherosclerotic plaque noted in the right internal carotid artery. There is intimal thickening but no significant atherosclerotic plaque noted in the right external carotid artery. Abnormal wavefrom morphology noted in the right vertebral artery. Left Extracranial There is heterogeneous, irregular atherosclerotic plaque noted in the left common carotid artery. There is heterogeneous, irregular atherosclerotic plaque noted in the left internal carotid artery. There is heterogeneous, irregular atherosclerotic plaque noted in the left external carotid artery. The Doppler flow velocities within the left external carotid artery are elevated, consistent with an approximately 75 - 99% stenosis. Antegrade flow is noted in the left vertebral artery. Procedure Carotid Duplex [id number]. Exam performed in department. Interpretation Summary Postoperative changes of the right carotid bulb and proximal internal carotid artery with less than 50% stenosis. <50% stenosis right external carotid Irregular calcific plaque at the left carotid bulb and proximal internal and external carotid arteries. >70% stenosis left internal carotid No flow noted at the origin of the left external carotid artery. Patent and antegrade vertebrals bilaterally although with diminished waveform right vertebral Possible slight progression of disease on the left from a previous examination of January 10, 2018 Ordering Physician: Marisela Barry Referring Physician: ROSALINA Raya M.D. Performed By: Nidhi Dickerson RVT and Student
== END | disposition home or self-care (01) ==
LOC: CVS 12:37
PROVIDERS: PCP Family Medicine; Referring Provider Physician Assistant Medical; Visit Provider Physician Assistant Medical
DX: I65.22 Occlusion and stenosis of left carotid artery (principal); G45.0 Vertebro-basilar artery syndrome; I77.1 Stricture of artery; R09.89 Other specified symptoms and signs involving the circulatory and respiratory systems; Z98.890 Other specified postprocedural states
CPT/HCPCS: 93880

== ENCOUNTER → 2019-11-30 | Outpatient (CLI) | payer MEDICARE, SELFPAY ==
[2017-12-22 12:49] VITALS: BMI 49.4
[2019-11-09 13:42] VITALS: BMI 39.6
--- NOTE | 2019-11-30 11:33 | STRESSREP_ITS ---
Stress Test Report Pharmacologic myocardial perfusion stress test. 79-year-old lady with a history of chest pain. Stress protocol: Resting EKG demonstrates normal sinus rhythm with a rate of 72 bpm normal intervals are noted. 0.4 mg of regadenoson was infused per usual protocol followed by Intravenous saline flush injection continuous EKG monitoring was performed. The patient maintained sinus rhythm throughout the recording. There were nonspecific ST changes noted which did not meet the criteria for ischemia. The maximum heart rate was 96 bpm which was 67% of maximum predicted heart rate the maximum workload was 1 metabolic equivalent. Myocardial perfusion protocol. 11.9 mCi of technetium 99m sestamibi was injected at rest. 0.4 mg of regaden oson was infused per usual protocol. At peak infusion 36.0 mCi of technetium 99m sestamibi was injected stress images were obtained stress and rest images were reconstructed and compared in the short axis vertical long horizontal long axis. Gated images were also obtained. Perfusion SPECT analysis: Review of the images demonstrate normal uptake of tracer noted in the septum anterior wall and lateral wall. There is a defect noted in the basal inferior wall suggestive of a basal inferior infarct present on the stress and resting images. There is mild perfusion defect noted in the inferolateral segment with improvement on the resting suggesting a mild inferolateral ischemia. Gated SPECT analysis: The gated ejection fraction is 64%. Conclusion: Abnormal pharmacologic myocardial perfusion stress test with evidence of mild inferolateral ischemia. Preserved ejection fraction.
== END | disposition home or self-care (01) ==
LOC: CVS 06:41
PROVIDERS: PCP Family Medicine; Referring Provider Physician Assistant Medical; Visit Provider Physician Assistant Medical
DX: R07.9 Chest pain, unspecified (principal)
CPT/HCPCS: 78452; 93017; A9500; A4216; J2785

== ENCOUNTER 2019-12-02 22:22 | Emergency (ER) | payer MEDICARE, SELFPAY ==
[2017-12-22 12:49] VITALS: BMI 49.4
[2019-11-09 13:42] VITALS: BMI 39.6
[2019-12-02 22:23] VITALS: BP 176/83; PULSE 89; PULSE 95; RESP 18; TEMP 37.6; O2SAT 89; O2SAT 97; BMI 40.2
--- NOTE | 2019-12-02 22:31 | CT_ITS ---
STUDY: CT ABDOMEN AND PELVIS WITHOUT CONTRAST REASON FOR EXAM: Female, 79 years old. SBO. Hx of bariatric surgery, cholecystectomy, heart stent, rt carotid endarterectomy, lt subclavian stent, HLD, HTN and diabetes RADIATION DOSAGE (If Supplied By Facility): CTDIvol = ( 22.44 ) mGy, DLP = ( 1076.41 ) mGycm TECHNIQUE: Transaxial images were obtained from the dome of the diaphragm to the symphysis pubis without oral contrast, and without intravenous contrast. Sagittal and coronal images were reconstructed. Individualized dose optimization techniques were used for this CT. COMPARISON: 11/14/2018. FINDINGS: Patchy right lower lobe infiltrates and nodular densities similar to previous study. Increasing nodularity in the right middle lobe since the previous study requiring follow-up. The visualized portions of the heart are within normal limits. Normal liver. Status post cholecystectomy. There is increasing dilatation of the biliary system. Normal spleen. Normal pancreas. Normal bilateral adrenal glands. Up to 4.7 cm cysts in the right kidney. Probable parapelvic cysts in the left kidney. Small hiatal hernia. There are dilated proximal small intestinal loops with air-fluid levels. Normal colon. The appendix is visualized and appears normal. Calcified abdominal aorta. Normal inferior vena cava. Normal retroperitoneum. Normal urinary bladder. Small fatty midline ventral hernia. There is a right-sided colostomy with adjacent herniated bowel loops. Paraumbilical hernia is noted containing multiple bowel loops possibly causing obstruction. Degenerative vertebral changes. CT/Abdomen/Pelvis without Cont IMPRESSION: Multiple hernias of the abdominal wall as noted. The right periumbilical hernia may be causing obstruction. Bilateral renal cysts. Increasing biliary dilatation. Lung base findings as noted above. Small hiatal hernia. Electronically Signed: Carl Santana DO at 23:49 EDT Tel [phone], Service support ,
[2019-12-02] MEDS: Ondansetron 4 MG/2 ML Vial IV (22:46)
[2019-12-02] MEDS: Morphine 4 MG/ML Syringe IV (22:46)
[2019-12-02] MEDS: 0.9% Normal Saline 1,000 ML 125 ML IV (22:46)
--- NOTE | 2019-12-02 22:53 | ED.DCSUM_ITS ---
History of Present Illness Chief Complaint: Abd Pain Narrative: Patient presenting for evaluation secondary to abdominal pain nausea and vomiting. Patient has a history of severe bowel obstructions in the past that required surgical intervention and ostomy placement at the main [facility]. Patient tells me that she was told by [facility] that anytime she has nausea or vomiting that she should call 911, be brought to [facility], and be taken immediately downtown to the [facility]. Patient reports that over the course last 24 hours she has had nonbloody nonbilious emesis and 10 out of 10 abdominal pain. She reports that this is a generalized abdominal pain without exacerbating relieving factors. Patient does report that she is continuing to have a normal output from her ostomy, she emptied it just prior to arrival. She denies any fevers associated with this. Of note, the patient did have a stress test 2 days ago that was noted to be positive, as well as had a carotid duplex that showed 70% stenosis of her left carotid artery. Patient currently denies that she is having any sort of chest pain. She is chronically on 2 L and denies any shortness of breath. Review of systems otherwise negative. Past Medical History - Allergies and Home Meds Allergies/Adverse Reactions: Allergies aspirin [ASA] Allergy (Severe, Verified 11/09/19 13:42) Hives bupropion [From Wellbutrin] Allergy (Verified 11/09/19 13:42) Unknown codeine Allergy (Verified 11/09/19 13:42) Hives meperidine HCl [From Demerol] Allergy (Verified 11/09/19 13:42) Hives naproxen sodium [From Anaprox] Allergy (Verified 11/09/19 13:42) Hives propoxyphene HCl [From Darvon] Allergy (Verified 11/09/19 13:42) Hives Sulfa (Sulfonamide Antibiotics) Allergy (Verified 11/09/19 13:42) hives, trouble breathing gabapentin Adverse Reaction (Intermediate, Verified 11/09/19 13:42) Mental status change, foggy headed NSAIDS (Non-Steroidal Anti-Inflamma Adverse Reaction (Verified 11/09/19 13:42) Hives Primary Care Physician: Vicente Raya III, MD [Primary Care Provider] - Surgical History: angioplasty Smoking Status: Current every day smoker - Family History Maternal Family History: Family History (Last Reviewed 11/12/19 @ 16:45 by Marisela QUIJANO, PA) Mother CVA (cerebral vascular accident) Father Asthma Hypertension High blood cholesterol level Arthritis Family History: Reports: Stroke Review of Systems All systems negative except as indicated General: Denies: Chills, Fever, Sweats Eyes: Denies: Visual changes - bilaterally, Diplopia ENT: Denies: Rhinorrhea, Sore throat Cardiovascular: Denies: Chest pain, Palpitations Respiratory: Denies: Dyspnea, Cough, Dyspnea on exertion Gastrointestinal: Reports: Abdominal pain, Nausea, Vomiting Genitourinary: Denies: Dysuria, Hematuria, Frequency Musculoskeletal: Denies: Back pain, Extremity Pain Skin: Denies: Rash, Wounds Neurological: Denies: Headache, Weakness, Numbness Physical Exam Vital Signs/Narrative: Vital Signs Temp Pulse Resp BP Pulse Ox 12/02/19 22:23 99.6 F H 89 18 176/83 H 97 Inital Vital Signs reviewed: Yes General: Well nourished, Well developed, Obese, - - Patient was frequently falling asleep but easily arousable. Negative for: Acute Distress Head: Normocephalic, Atraumatic Eyes: Perrl, EOMI ENT: Moist mucous membranes, No rhinorrhea Neck: Supple, Nontender Cardiovascular: Regular rate, Regular rhythm, No murmurs Respiratory: No distress, CTA bilaterally, Chest nontender Abdomen: Soft, Normal bowel sounds, Tender - Diffuse nonlocalizing, - - No palpable masses although the patient's abdomen is obese. There is normal drainage within the patient's ostomy. No rigidity or guarding noted. Back: Nontender, Normal Inspection Extremities: Nontender, No edema Skin: Normal color, No rash Neurological: Alert, Oriented x3, Cranial nerves II-XII grossly intact, Normal Strength, Normal Sensation Psychological: Normal affect, Normal Mood Diagnostic/Tx/Re-eval Clinical Impression(s) from Imaging Studies Abdomen/Pelvis CT 12/02/19 22:31 IMPRESSION: Multiple hernias of the abdominal wall as noted. The right periumbilical hernia may be causing obstruction. Bilateral renal cysts. Increasing biliary dilatation. Lung base findings as noted above. Small hiatal hernia. Electronically Signed: Carl Santana DO at 23:49 EDT Tel [phone], Service support , Laboratory Data 12/02/19 12/02/19 12/02/19 22:45 22:45 22:45 WBC 13.4 H RBC 4.21 Hgb 12.3 Hct 39.1 MCV 92.9 MCH 29.2 MCHC 31.5 L RDW Std Deviation 48.2 H RDW Coeff of Abiola 14.2 Plt Count 278 MPV 9.0 Immature Gran % (Auto) 0.500 Neut % (Auto) 81.4 H Lymph % (Auto) 9.9 L [place] % (Auto) 6.5 Eos % (Auto) 1.3 Baso % (Auto) 0.4 Absolute Neuts (auto) 10.9 H Absolute Lymphs (auto) 1.33 Nucleated RBC % 0 Sodium 141 Potassium 4.4 Chloride 108 H Carbon Dioxide 26.0 Anion Gap 7 BUN 22 H Creatinine 1.07 H Estim Creat Clear Calc 34.27 Est GFR (MDRD) Af Amer 64 Est GFR (MDRD) Non-Af 53 L BUN/Creatinine Ratio 20.6 H Glucose 107 H Lactic Acid 0.8 Calcium 9.2 Total Bilirubin 0.70 AST 22 ALT 19 Alkaline Phosphatase 130 H Total Protein 8.2 Albumin 3.3 Globulin 4.9 H Albumin/Globulin Ratio 0.7 L Lipase 134 - Medical Decision Making Patient presented secondary to abdominal pain nausea and vomiting in the setting of complicated parastomal hernias that have caused bowel obstruction in the p ast. IV was established patient was given morphine and Zofran and IV hydration. CBC demonstrates a leukocytosis, chemistry does not show significant electrolyte derangements. Lactic acid was found to be negative. CT abdomen and pelvis was ordered initially with p.o. contrast but the patient was not tolerating this well so she was scanned without contrast. Patient CT demonstrated evidence of a parastomal hernia that was potentially causing a small bowel obstruction. I reviewed the patient's records, she also recently has had a carotid duplex that showed unilateral 70% stenosis as well as a nuclear stress test 2 days ago that showed inducible inferior cardiac ischemia. This is a very complicated patient, and she has been treated at the [facility] for tertiary care of her parastomal hernias in the past, and I do believe that she is appropriate for transfer to tertiary care. [facility] transfer line was contacted. They accepted and the patient will be transferred. ED Disposition - Plan for ED Patient: Disposition: [facility] - Main Diagnosis: Peristomal hernia, Small bowel obstruction, Positive cardiac stress test, Carotid stenosis Referrals: Vicente Raya III, MD [Primary Care Provider] -
[2019-12-02 22:54] LABS: Absolute Lymphocyte Count 1.33 X10^3/uL (0.83-4.51); Absolute Neutrophil Count 10.9 X10^3/uL (2.0-7.7); Basophil# 0.05 X10^3/uL; Basophil% 0.4 % (0-1); Eosinophil# 0.17 X10^3/uL; Eosinophils% 1.3 % (0-5); Hematocrit 39.1 % (37-47); Hemoglobin 12.3 g/dL (12.0-15.0); Lymphocyte # 1.33 X10^3/ul (4.0); Lymphocyte % 9.9 % (19-41); Mean Corp Hgb Conc 31.5 g/dL (32-36); Mean Corpuscular Hgb 29.2 pg (27.0-32.0); Mean Corpuscular Volume 92.9 fL (81-99); Monocyte# 0.87 X10^3/uL; Monocyte% 6.5 % (0-10); NRBC Flagged by Analyzer 0 % (0-5); Neutrophil # 10.88 X10^3/uL (2.7-7.7); Neutrophil % 81.4 % (47-70); Platelet Count 278 K/mm3 (150-450); RBC Distribution Width CV 14.2 % (11.6-14.6); RBC Distribution Width SD 48.2 fl (35.1-43.9); Red Blood Count 4.21 M/mm3 (4.2-5.4); White Blood Count 13.4 K/mm3 (4.4-11.0)
[2019-12-02 23:16] LABS: ALB/GLOB Ratio 0.7 RATIO (0.9-2.4); AST(SGOT) 22 U/L (15-37); Alanine Aminotransfer ALT/SGPT 19 U/L (13-56); Albumin, Serum 3.3 g/dL (3.2-5.0); Alkaline Phosphatase 130 U/L (45-117); Anion Gap 7 (5-15); BUN 22 mg/dL (7-18); BUN/Creat Ratio 20.6 RATIO (10-20); Calcium,Total 9.2 mg/dL (8.5-10.1); Chloride 108 mmol/L (98-107); Creatinine, Serum 1.07 mg/dL (0.55-1.02); EST Glomerular Filtration Rate 53 mL/min (>60); Est Glom Filt Rate - Afr Amer 64 mL/min (>60); Estimated Creatinine Clearance 34.27 ml/min; Globulin 4.9 g/dL (2.2-4.2); Glucose 107 mg/dL (74-106); Lipase 134 U/L (73-393); Potassium 4.4 mmol/L (3.5-5.1); Protein, Total 8.2 g/dL (6.4-8.2); Sodium Level 141 mmol/L (136-145)
[2019-12-02 23:19] LABS: Lactic Acid 0.8 mmol/L (0.4-1.9)
[2019-12-03 01:04] VITALS: BP 98/65; PULSE 81; RESP 28; TEMP 36.8; O2SAT 96
[2019-12-03 01:07] VITALS: BP 112/61; PULSE 81; RESP 18; TEMP 36.8; O2SAT 96
[2019-12-03 01:34] VITALS: BP 112/61; PULSE 80; RESP 16; TEMP 36.8; O2SAT 96
== END 2019-12-03 02:03 | disposition short-term general hospital (02) ==
PROVIDERS: Emergency Provider Emergency Medicine; PCP Family Medicine
DX: K43.3 Parastomal hernia with obstruction, without gangrene (principal); K56.609 Unspecified intestinal obstruction, unspecified as to partial versus complete obstruction; Z93.3 Colostomy status; I65.22 Occlusion and stenosis of left carotid artery; R94.39 Abnormal result of other cardiovascular function study; F17.200 Nicotine dependence, unspecified, uncomplicated; E66.9 Obesity, unspecified
CPT/HCPCS: 74176; 80053; 83605; 83690; 85025; 96361; 96374; 96375; 99285; J7030; J2405

== ENCOUNTER 2019-12-11 06:26 | Day surgery (SDC) | payer MEDICARE, SELFPAY ==
[2017-12-22 12:49] VITALS: BMI 49.4
[2019-12-10 08:44] VITALS: BMI 39.6
--- NOTE | 2019-12-10 17:19 | HP.PCM_ITS ---
History and Physical Date of Admission: 12/10/19 History of Present Illness Details: This is a 79-year-old female that presents here today for a diagnostic heart catheterization. She does have a history of coronary artery disease with stenting to her RCA in 2000, 2003 in 2013, stenting to her LAD in 2017. She also has a history of hypertension, hyperlipidemia, reactive airway disease. She was seen in our office in October 2019, previous to that it was greater than 1 year. She was in the hospital last January for chest pain, she declined admission. At her OV in October she noted that: She feels that she is having more chest pain than before. She notes that she has taken NTG. She can not tell me when she last took it except that it is more frequent. She keeps referring back to things that happened in May of 2018. The next sentence she tells me that she took some yesterday. She does have SOB, she can not tell me if this is worse than before. She does feel that she is having palpitations- she notes that she has this with her jaw pain. She does have occasionally have lightheadedness/dizziness. She does have some edema. She did undergo a stress test which was an abnormal pharmacologic myocardial perfusion stress test with evidence of mild inferolateral ischemia. Preserved ejection fraction. She is here today for a heart catheterization Intake Intake Visit Reasons: Amb Documentation Allergies aspirin [ASA] Allergy (Severe, Verified 12/10/19 08:27) Hives bupropion [From Wellbutrin] Allergy (Verified 12/10/19 08:27) Unknown codeine Allergy (Verified 12/10/19 08:27) Hives meperidine HCl [From Demerol] Allergy (Verified 12/10/19 08:27) Hives naproxen sodium [From Anaprox] Allergy (Verified 12/10/19 08:27) Hives propoxyphene HCl [From Darvon] Allergy (Verified 12/10/19 08:27) Hives Sulfa (Sulfonamide Antibiotics) Allergy (Verified 12/10/19 08:27) hives, trouble breathing gabapentin Adverse Reaction (Intermediate, Verified 12/10/19 08:27) Mental status change, foggy headed NSAIDS (Non-Steroidal Anti-Inflamma Adverse Reaction (Verified 12/10/19 08:27) Hives [facility] Medical History Atherosclerosis of coronary artery of [place] without angina pectoris (Chronic) Stenosis of right carotid artery (Chronic) 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) Essential (primary) hypertension (Chronic) Hyperlipidemia (Chronic) Asthma (Chronic) Carotid artery stenosis (Chronic) Chronic hypoxemic respiratory failure (Chronic) History of diabetes mellitus, type II (Chronic) History of gastroesophageal reflux (GERD) (Chronic) Obesities, morbid (Chronic) Obstructive sleep apnea (Chronic) Stage 2 moderate COPD by GOLD classification (Chronic) Tobacco abuse (Chronic) VBI (vertebrobasilar insufficiency) (Chronic) Surgical History History of coronary artery stent placement (Chronic 01/20/18) History of right knee joint replacement (Chronic) History of section (Resolved) History of cholecystectomy (Resolved) History of right-sided carotid endarterectomy (Resolved 07/2014) left subclavian artery stent (Resolved 03/2017) H/O bariatric surgery (Inactive) Family History Mother CVA (cerebral vascular accident) Father Asthma Hypertension High blood cholesterol level Arthritis Social History Smoking Status: Current every day smoker second hand exposure: Yes alcohol intake: current alcohol intake frequency: 3 or more drinks per day Alcohol type: hard liquor substance use type: does not use caffeine: Yes what type of physical activity do you participate in: none ROS Const Const: Positive for fatigue; negative for weakness, fever(s) or headache(s) Eyes Eyes: Negative for blind spots, loss of peripheral vision or transient loss of vision ENT ENT: Negative for headache(s) Cardio Chest Pain: Yes Palpitations: Yes Edema: None Muscle aches with walking: None Resp Respiratory: Positive for SOB with activity; negative for SOB at rest, SOB orthopnea\SOB lying down or Cough GI GI: Negative nausea, vomiting, heartburn or vomiting blood/hematemesis : Negative for hematuria Musc Musc: Negative for muscle aches/ myalgia Neuro Neuro: Negative for headache(s) or weakness Maurilio Hematologic/Lymphatic: Negative for easy bleeding Endo Endo: Positive for fatigue Cardiology Exam Const Appearance: cooperative, no acute distress, well developed and other (in WC) Orientation: alert, awake and oriented x3 Head Head: normocephalic and atraumatic Mouth: moist mucous membranes Eyes General: appearance normal, both eyes and all related structures Conjunctivae: conjunctivae normal Pupils: PERRL EOM: EOM intact bilaterally Neck Neck: normal visual inspection, no lymphadenopathy and no JVD Carotids: Negative bruit Neck Mass: Negative Neck mass Chest Chest inspection: normal inspection of the chest and symmetric chest movement Auscultation: Bilateral: Clear to Auscultation Cardio Palpation: normal PMI Rate: regular rate Rhythm: regular rhythm Heart sounds: S1 normal and S2 normal; negative rub, gallop or murmur GI GI: normal to inspection, soft, no hepatosplenomegaly, bowel sounds present and other (Ileostomy); negative tender Neuro General: alert, awake, oriented x3, CN's II-XI intact bilaterally and moves all extremities Extremities Pulses: Normal: Right Posterior Tibial Pulse, Left Posterior Tibial Pulse, Right Radial Pulse, Left Radial Pulse Lower Extremity Edema: None: Bilateral Psych Psychological: normal affect Assessment & Plan Problems 1. Atherosclerosis of coronary artery of [place] heart without angina pectoris I25.10 2. Essential hypertension I10 3. Hyperlipidemia E78.5 4. History of coronary artery stent placement Z95.5 OMT-GWZ-Hwhuit RCA 2000 and 2002; RKY-OCI-Ding RCA 03/22/13; PCI-MUSHTAQ-Mid RCA w/ 3.5 x 12 mm Promus Synergy Stent 12/22/2017; WFA-FJP-Cjbsdt LAD w/ 2.25 X 24 mm Promus Synergy and MUSHTAQ- Prox LAD w/ 3.5 X 24 mm Promus Synergy 01/20/2018; Plan - Marisela QUIJANO, PA With patient's continued chest discomfort, abnormal stress test and history of coronary artery disease would like to pursue a diagnostic heart catheterization. This will be done today. She will follow-up in the office accordingly after. COVID (Procedure Consent) Procedure Criteria Procedure Criteria: Yes Elective The surgeon/proceduralist and patient have discussed in detail the risk of exposure to and/or potential harm posed by the COVID-19 virus with having a surgery/procedure at this time versus the risk of delaying the surgery/procedure. It is not possible to know either the risk of delaying the surgery or procedure or chance of getting an infection with perfect accuracy, but a joint decision was made between the patient and the surgeon/proceduralist to proceed at this time with the scheduled surgery/procedure as indicated on the consent form.
[2019-12-11] VITALS (33 sets, daily range): BP systolic 86–181; BP diastolic 40–91; PULSE 58–143; RESP 12–28; TEMP 36.1–36.7; O2SAT 91–100; BMI 39.6
--- NOTE | 2019-12-11 09:38 | CL.D_ITS ---
Patient Name: KAREN VILLANUEVA Study Date: 12/11/2019 Performing: Mt Hamm MD Ht: 61.81 inches 157 cm : 1940 Wt: 216.05 lbs 98 kg Age: 79 Gender: female BSA: 1.97 Amended PROCEDURE(S) PERFORMED [id number]/COR CLINICAL PROFILE AND INDICATIONS Indications: Suspected CAD Heart Failure: None Stress/Imaging Date: 12/02/2019Stress Test with SPECT MPI: Positive Intermediate Risk CONCLUSIONS Atherosclerotic cardiovascular disease with evidence of right subclavian stenosis, severe diffuse aor tic disease. RECOMMENDATIONS Referred for immediate PCI DESCRIPTION OF PROCEDURE The patient arrived to the procedure lab. The risks and benefits of the procedure as well as a full d escription of our services here and current unavailability of surgical backup were fully explained to the patient and/or their significant other prior to the catheterization. The Timeout was completed, verifying the correct patient and procedure. The patient's procedural site was prepped and draped in the usual fashion. Local anesthetic was given subcutaneously to right radial region with Lidocaine 2% . Local anesthetic was given subcutaneously to right groin region with Lidocaine 2%. Using a modified Seldinger technique, arterial access was obtained via the right radial artery, a 6Fr sheath was inse rted., arterial access was obtained via the right femoral artery, a 5Fr sheath was inserted. Left Co ronary Artery selective angiography was performed in multiple views using a 5 Fr. JL4 catheter. Right Coronary Artery selective angiography was then performed in multiple views using a 5 Fr. 3DRC (Philip) catheter. CORONARY ANGIOGRAPHY DOMINANCE: Right Dominant LEFT HEART ASSESSMENT Left Ventricular Ejection Fraction: by Echo 55 % LEFT MAIN: Moderate calcification LEFT ANTERIOR DESCENDING ARTERY: MID LAD: Previously placed stent is patent, Previously placed stent is patent CIRCUMFLEX ARTERY: PROX CIRC: Previously placed stent is patent RIGHT CORONARY ARTERY: PROX RCA: Previously placed stent is patent MID RCA: Previously placed stent is patent, eccentric 70 % Stenosis DISTAL RCA: Previously placed stent is patent RT PLV: 60 % Stenosis COMPLICATIONS PROCEDURE MEDICATIONS Fentanyl 50 mcg IV Versed 1 mg IV Versed 1 mg IV Fentanyl 25 mcg IV Fentanyl 25 mcg IV Fentanyl 25 mcg IV Oxygen: 2 L/min via nasal cannula Atropine 1mg/10ml 0.5 amp @ 12/11/2019 09:17:19 Heparin diluted in 23cc Heparinized saline. Patient given 10cc IA of this solution. 12/11/2019 08:08: 35 Heparin 7000 unit(s) IV 12/11/2019 09:00:18 Lasix 40 mg IV 12/11/2019 09:23:28 Verapamil 2.5mg, Ntg 100mcgs, 2000 units of Heparin diluted in 23cc Heparinized saline. Patient give n 10cc IA of this solution. 12/11/2019 08:08:35 IV Bolus: .9 NaCl 800ml total 12/11/2019 09:12:03 SUMMARY OF HEMODYNAMIC DATA Time AIR REST ECG 07:05:45 AO 92/55 (72) SA 08:13:15 AO 198/62 (112) 08:39:47 AO 87/38 (58) 09:08:19 AO 185/71 (121) 09:18:29 Signed By Mt Hamm MD On 12/11/2019 9:37:44 AM Mt Hamm MD
--- NOTE | 2019-12-11 11:30 | EKG12_ITS ---
Test Reason : AM EKG Blood Pressure : / mmHG Vent. Rate : 062 BPM Atrial Rate : 062 BPM P-R Int : 196 ms QRS Dur : 080 ms QT Int : 416 ms P-R-T Axes : 070 061 069 degrees QTc Int : 422 ms Normal sinus rhythm Septal infarct (cited on or before 25-JAN-2019) Abnormal ECG When compared with ECG of 25-JAN-2019 15:52, No significant change was found Confirmed by KALIN LEI, VIVEK ([id number]), web content editor ANDIE GARY ([id number]) on 12/18/2019 9:12:25 AM Referred By: Mt Hamm Confirmed By:EVI GAGNON MD
--- NOTE | 2019-12-11 11:36 | CRPHASE1_ITS ---
Patient Communication Former Patient:: Phase I - 01/19/2018, Phase II - 01/19/2018 PHII Cardiac Rehab Discussed with Patient:: Yes Guide to Cardiac Rehab Given to Patient:: Yes Cardiac Rehab Facility Choice List Given to Patient:: Yes Choice Program [facility] PHII:: Communication Given to CR, Refer to [facility] Motorized Squad Lieutenant:: Janeen Herrera Refer Phase II Cardiac Rehab:: Yes Sessions:: 36 sessions - 3 days/wk, 12 weeks Risk Factors/Lifestyle Family History: Family History (Last Reviewed 12/10/19 @ 17:17 by Marisela Barry PA, PA) Mother CVA (cerebral vascular accident) Father Asthma Hypertension High blood cholesterol level Arthritis Cardiac Rehabilitation Info Cardiac Rehabilitation Program Information: Cardiac Rehabilitation is important for patients like you who are recovering from a heart problem. Cardiac rehabilitation programs are recognized as integral to the continued care of the patient with coronary heart disease. The cardiac rehabilitation program is designed to optimize a patient's physical, psychological, and social functioning. Health day care supervisor work in cardiac rehabilitation programs and assist you with getting the treatments you need to get stronger and healthier - like exercise, healthy eating habits, and medications. Cardiac rehabilitation has been show to help people with heart problems live longer and have better life enjoyment than people who do not go to cardiac rehabilitation. Please contact the Cardiac Rehabilitation Program at [facility] at in two weeks if you have not heard from them.
--- NOTE | 2019-12-11 11:37 | CRPH1.INSTRU ---
General Education CAD and cardiac anatomy and function:: Patient communicates acknowledgment, Not instructed - Patient previously seen by CR staff w/formal education in CR PHase II outpatient 01/2018 following previous PCI intervention. Explanation of diagnoses and procedures:: Patient communicates acknowledgment, Not instructed Sign/Symptoms of MO:: Patient communicates acknowledgment, Not instructed Antiplatelet therapy: Patient communicates acknowledgment, Not instructed Proper use of NTG-SL: Patient communicates acknowledgment, Not instructed Emergency procedures and activation of EMS: Patient communicates acknowledgment, Not instructed Compliance of all prescribed medications: Patient communicates acknowledgment, Not instructed
[2019-12-11 11:46] LABS: ACT Activated Clotting Time 202 sec (74-137)
[2019-12-11 11:56] LABS: Hematocrit 33.2 % (37-47); Hemoglobin 10.3 g/dL (12.0-15.0); Mean Corpuscular Volume 93.5 fL (81-99); Mean Platelet Vol. 8.4 fl (6.2-12.0); Platelet Count 374 K/mm3 (150-450); RBC Distribution Width CV 14.6 % (11.6-14.6); RBC Distribution Width SD 50.5 fl (35.1-43.9); Red Blood Count 3.55 M/mm3 (4.2-5.4); White Blood Count 13.3 K/mm3 (4.4-11.0)
[2019-12-11] MEDS: 0.9% Normal Saline 1,000 ML 60 ML IV (12:05)
[2019-12-11] MEDS: 0.9% Saline Lock 10 ML Syringe IV (12:05)
[2019-12-11] MEDS: Morphine 2 MG/ML Syringe IV (12:29)
[2019-12-11] MEDS: Midodrine HCl 5 MG Tablet PO ×2 (15:11→21:19)
[2019-12-11] MEDS: Loperamide 2 MG Capsule 4 MG PO ×3 (15:14→21:19)
[2019-12-11] MEDS: Budesonide Respules 0.5 MG/2 ML AMPUL.NEB. INHALATION (19:10)
[2019-12-11] MEDS: TICAGRELOR 90 MG TABLET PO (21:19)
[2019-12-11] MEDS: Atorvastatin Calcium 40 MG Tablet PO (21:19)
[2019-12-12] VITALS (16 sets, daily range): BP systolic 91–136; BP diastolic 42–99; PULSE 52–85; RESP 12–22; TEMP 36.6–36.8; O2SAT 93–100
[2019-12-12 04:03] LABS: Hematocrit 30.4 % (37-47); Hemoglobin 9.2 g/dL (12.0-15.0); Mean Corp Hgb Conc 30.3 g/dL (32-36); Mean Corpuscular Hgb 28.8 pg (27.0-32.0); Mean Corpuscular Volume 95.3 fL (81-99); Mean Platelet Vol. 8.7 fl (6.2-12.0); Platelet Count 346 K/mm3 (150-450); RBC Distribution Width CV 14.6 % (11.6-14.6); RBC Distribution Width SD 51.5 fl (35.1-43.9); Red Blood Count 3.19 M/mm3 (4.2-5.4); White Blood Count 13.5 K/mm3 (4.4-11.0)
[2019-12-12 04:18] LABS: ALB/GLOB Ratio 0.6 RATIO (0.9-2.4); AST(SGOT) 25 U/L (15-37); Alanine Aminotransfer ALT/SGPT 27 U/L (13-56); Albumin, Serum 2.5 g/dL (3.2-5.0); Alkaline Phosphatase 124 U/L (45-117); Anion Gap 3 (5-15); BUN 37 mg/dL (7-18); BUN/Creat Ratio 31.4 RATIO (10-20); Calcium,Total 8.3 mg/dL (8.5-10.1); Chloride 109 mmol/L (98-107); Creatinine, Serum 1.18 mg/dL (0.55-1.02); EST Glomerular Filtration Rate 47 mL/min (>60); Est Glom Filt Rate - Afr Amer 57 mL/min (>60); Estimated Creatinine Clearance 31.08 ml/min; Globulin 4.2 g/dL (2.2-4.2); Glucose 81 mg/dL (74-106); Potassium 4.8 mmol/L (3.5-5.1); Protein, Total 6.7 g/dL (6.4-8.2); Sodium Level 139 mmol/L (136-145)
[2019-12-12] MEDS: Midodrine HCl 5 MG Tablet PO (05:14)
[2019-12-12] MEDS: Budesonide Respules 0.5 MG/2 ML AMPUL.NEB. INHALATION (07:09)
--- NOTE | 2019-12-12 07:29 | PN.CARD_ITS ---
Subjectve: Patient seen and evaluated. Appears to be doing better this morning complaining of some leg cramps. Also was noted to have black stools through the ostomy. Not new. Objective: Vital Signs Temp Pulse Resp BP Pulse Ox 98.2 F 62 15 115/99 H 100 12/12/19 04:00 12/12/19 07:00 12/12/19 07:00 12/12/19 07:00 12/12/19 07:00 Oxygen Flow Rate (L/min) 2 Oxygen Delivery Method Nasal Cannula Weight: 212 lb 8.41 oz Body Mass Index (BMI) 39.6 Finger Stick Blood Glucose 88 Intake and Output for Last 24 Hours 12/10/19 12/11/19 12/12/19 23:59 23:59 23:59 Intake Total 290 / 290 360 / 360 Output Total 3350 / 3350 350 / 350 Balance -3060 / -3060 General: Awake, Alert, Oriented x 3 HEENT: PERRL, EOMI, Sclera Non Icteric Neck: Supple, Good ROM, No Lymph Node Enlargement Lungs: Clear to auscultation Cardiovascular: Regular Rhythm, Normal S1, Normal S2, No Murmurs, No Rubs, No Gallops Vascular: No Carotid Bruits, Normal Femoral Pulses, Normal Radial Pulses, Normal Dorsalis Pedal Pulse, Normal Posterior Tibial Pulses Abdomen: Bowel Sounds Present, Soft, Non Tender, No HSM, No Organomegaly Extremities: No Cyanosis, No Clubbing, No edema Musculoskeletal: No Erythema Skin: No Rashes Lymphatic: No Lymph Node Enlargement Neurological: No Focal Motor or Sensory Deficit Psych/Mental Status: Appropriate 12/11/19 11:45: WBC 13.3 H, RBC 3.55 L, Hgb 10.3 L, Hct 33.2 L, MCV 93.5, MCH 29.0, MCHC 31.0 L, Plt Count 374, MPV 8.4 12/12/19 03:55: WBC 13.5 H, RBC 3.19 L, Hgb 9.2 L, Hct 30.4 L, MCV 95.3, MCH 28.8, MCHC 30.3 L, Plt Count 346, MPV 8.7 12/12/19 03:55: Sodium 139, Potassium 4.8, Chloride 109 H, Carbon Dioxide 27.0, Anion Gap 3 L, BUN 37 H, Creatinine 1.18 H, Est GFR (MDRD) Af Amer 57 L, Est GFR (MDRD) Non-Af 47 L, BUN/Creatinine Ratio 31.4 H, Glucose 81, Calcium 8.3 L, Total Bilirubin 0.40 Rhythm: EKG: ECHO: Stress Test: Cardiac Cath: PCI: CT Surgery: Holter monitor: EPS: PPM: CXR: Chest CT Scan: Medical Necessity - Tobacco Use Smoking Status: Current every day smoker Tobacco Use: Cigarettes Assessment/Plan 1. Coronary artery disease. * Patient is status post complex angioplasty to the mid right coronary artery. The previous stents placed to the proximal and distal right coronary artery were noted to be patent. * The previous stents placed in the LAD as well as the circumflex artery were also noted to be patent. * The plan to be to continue the current medical therapy. Patient is on Brilinta. * Plan to be discharged for outpatient follow-up. * 2. Peripheral vascular disease * Patient has significant peripheral vascular disease including the carotid artery right subclavian artery which is nearly totally occluded as well as aortic calcification. The patient will be referred to her vascular surgeon at a later date for evaluation of the above. * She also has recurrent carotid stenosis. 3. Hypertension * Her blood pressure appears to be under good control. Due to her vascular disease blood pressure should not be measured through her right arm as there will be falsely low. * Her Midodrine can probably be discontinued as an outpatient. * 4. Heme positive stools * Patient apparently noted the above prior was seen at the [facility] and it is not clear what evaluation was undertaken. I will discuss with her primary physician today. Certainly with her having just had the stent I would not recommend discontinuing her Brilinta. * Her hemoglobin appears to be stable. I would arrange early follow-up with her primary care physician. * Patient can be discharged for close follow-up.
--- NOTE | 2019-12-12 08:34 | PCM.DC.CCA ---
Discharge Diet: Low fat/ Low Cholesterol Discharge Activity: Return to Normal Activity Lifting Restrictions: 10 pounds and also avoid any pushing or pulling for 3 days after your test. Call your doctor if your incision/area has: Continuous Slow Oozing, Sudden Increased Bleeding, Increased Pain/ Swelling, Increased Redness, Foul Smelling Discharge, Swelling at the incision site Call your doctor if you observe: Fever of 101 or Higher, Dizziness, Chest pain Remove Dressing in (days):: 1 Additional Dressing/Incision Instructions:: Keep the dressing (bandage) on until the next morning. You may then shower, but do not take a tub bath for 5 days after your test. It is normal to have some tenderness and discomfort at the puncture site. Sometimes bruising also occurs. However, if pain, numbness, or coldness occurs below the puncture site (in your leg, toes, arms or fingers) call your doctor at once. You may have a small, marble sized knot at the puncture site. This is normal. Do not rub it. It will go away in 4-6 weeks. Bleeding can occur from the area where the puncture was done. Blood may spurt or drip from the site. If blood spurts, apply pressure right away to stop bleeding and call 911. Although rare, bleeding into the tissue (hematoma) can also occur. If this happens, a large, firm area goose egg under the skin will appear. If any of these occur, lie down as flat as you can and have someone apply firm pressure to the cath site with a gauze pad or a clean washcloth for 10-15 minutes. Call 911 or go to the Emergency Department. Additional Instructions: You were switched from Plavix to Brilinta, This can not be stopped. If you are having issues with the cost of this Rx please let the [facility] office know. Allergies/Adverse Reactions: Allergies aspirin [ASA] Allergy (Severe, Verified 12/10/19 08:27) Hives bupropion [From Wellbutrin] Allergy (Verified 12/10/19 08:27) Unknown codeine Allergy (Verified 12/10/19 08:27) Hives meperidine HCl [From Demerol] Allergy (Verified 12/10/19 08:27) Hives naproxen sodium [From Anaprox] Allergy (Verified 09/28/20 08:27) Hives propoxyphene HCl [From Darvon] Allergy (Verified 12/10/19 08:27) Hives Sulfa (Sulfonamide Antibiotics) Allergy (Verified 12/10/19 08:27) hives, trouble breathing gabapentin Adverse Reaction (Intermediate, Verified 12/10/19 08:27) Mental status change, foggy headed NSAIDS (Non-Steroidal Anti-Inflamma Adverse Reaction (Verified 12/10/19 08:27) Hives Medications to take at Discharge Citalopram [Celexa] 20 mg PO DAILY 02/28/13 Montelukast [Singulair] 10 mg PO QHS PRN 07/08/14 Albuterol IH (ProAir) [Proair Hfa] 2 puff INHALATION Q6H PRN PRN 07/15/14 pramipexole 1 mg tablet 1 mg PO QHS PRN tab 02/14/18 Atorvastatin Calcium [Lipitor] 40 mg PO QHS 08/17/18 Beclomethasone Diprop Inhaler [Qvar 80 Mcg Inhaler] 1 puff INHALATION BID 08/17/18 Omeprazole 40 mg PO DAILY 08/17/18 Loperamide [Imodium] 4 mg PO 4X/DAY 11/14/18 Midodrine HCl 5 mg PO Q8H 11/14/18 nitroglycerin 0.4 mg sublingual tablet 0.4 mg SUBLINGUAL Q5M PRN #25 tab 01/26/19 Oxygen, Home [Home Oxygen] 2 lpm NASAL QHS 12/02/19 metoprolol succinate 25 mg tablet,extended release 24 hr 12.5 mg PO DAILY tab 12/06/19 Ferrous Sulfate 325 mg PO DAILY@0800 12/10/19 Ticagrelor [Brilinta] 90 mg PO BID #60 tab 12/12/19 The following prescriptions were given: Ticagrelor [Brilinta] 90 mg PO BID #60 tab Transmission Status: Pending to [id number] Primary Care Physician: Vicente Raya III, MD [Primary Care Provider] - Test Results: Test results from this visit will be discussed in further detail at your follow-up appointment, if applicable. Please Follow Up With: Marisela Barry PA When: 12/19 at 1030 Proposed Discharge Date: 09/30/20 Cardiac Rehabilitation Info Cardiac Rehabilitation Program Information: Cardiac Rehabilitation is important for patients like you who are recovering from a heart problem. Cardiac rehabilitation programs are recognized as integral to the continued care of the patient with coronary heart disease. The cardiac rehabilitation program is designed to optimize a patient's physical, psychological, and social functioning. Health healthcare insurance sales agent work in cardiac rehabilitation programs and assist you with getting the treatments you need to get stronger and healthier - like exercise, healthy eating habits, and medications. Cardiac rehabilitation has been show to help people with heart problems live longer and have better life enjoyment than people who do not go to cardiac rehabilitation. Please contact the Cardiac Rehabilitation Program at [facility] at in two weeks if you have not heard from them.
[2019-12-12] MEDS: TICAGRELOR 90 MG TABLET PO (09:01)
[2019-12-12] MEDS: Citalopram 20 MG Tablet PO (09:02)
[2019-12-12] MEDS: Ferrous Sulfate 325 MG Tablet PO (09:02)
[2019-12-12] MEDS: Loperamide 2 MG Capsule 4 MG PO (09:02)
[2019-12-12] MEDS: Metoprolol(XL)Succ 25 MG Tablet 12.5 MG PO (09:03)
[2019-12-12] MEDS: Pantoprazole Sodium 40 MG Tablet PO (09:03)
--- NOTE | 2019-12-12 10:00 | EKG12_ITS ---
Test Reason : PCI Blood Pressure : / mmHG Vent. Rate : 070 BPM Atrial Rate : 070 BPM P-R Int : 178 ms QRS Dur : 092 ms QT Int : 400 ms P-R-T Axes : 062 057 072 degrees QTc Int : 432 ms Normal sinus rhythm Septal infarct , age undetermined Abnormal ECG No previous ECGs available Confirmed by KALIN LEI, VIVEK ([id number]), sound editor ANDIE GARY ([id number]) on 12/18/2019 9:13:23 AM Referred By: tM Hamm Confirmed By:EVI GAGNON MD
--- NOTE | 2019-12-12 10:23 | CL.I_ITS ---
Patient Name: KAREN VILLANUEVA Study Date: 12/11/2019 Performing: Cas Herrera MD Ht: 62 inches 157 cm : 1940 Wt: 216.3 lbs 98 kg Age: 79 Gender: female BSA: 1.97 Amended PROCEDURE(S) PERFORMED [id number] W OR WO PTCA, SINGLE CORONARY ARTERY CLINICAL PROFILE AND CO-MORBIDITIES Indications: Suspected CAD Heart Failure: None Stress/Imaging Date: 12/02/2019 Stress Test with SPECT MPI: Positive Intermediate Risk CONCLUSIONS Successful MUSHTAQ to mRCA RECOMMENDATIONS Since patient is allergic to ASA, it will be reasonable to keep her on Brilinta for 1 year if tolerat ed. If not, she can be switched to plavix. DESCRIPTION OF PROCEDURE The patient arrived to the procedure lab. The risks and benefits of the procedure as well as a full d escription of our services here and current unavailability of surgical backup were fully explained to the patient and/or their significant other prior to the catheterization. The Timeout was completed, verifying the correct patient and procedure. The patient's procedural site was prepped and draped in the usual fashion. Local anesthetic was given subcutaneously to right radial region with Lidocaine 2% . Local anesthetic was given subcutaneously to right groin region with Lidocaine 2% Using a modified Seldinger technique,arterial access was obtained via the right radial artery, a 6Fr sheath was insert ed., arterial access was obtained via the right femoral artery, a 5Fr sheath was inserted. Left Coron shakila Artery selective angiography was performed in multiple views using a 5 Fr. JL4 catheter. Right Co ronary Artery selective angiography was then performed in multiple views using a 5 Fr. 3DRC (Philip) catheter.The images were reviewed and options discussed. A decision was then made to proceed with an Intervention, IVUS or other adjunct procedure. Arterial sheath was exchanged for a 6 Fr x 45cm Sheath. AL 1.0 Guide catheter was inserted and en gaged into the RCA. BMW Guide wire was advanced to the RCA. Emerge 3.00x12 Balloon catheter was inser efrain. PTCA balloon inflated at 6 atms for 6 secs. PTCA balloon inflated at 6 atms for 12 secs. Angiogr am performed post balloon dilatation. Priority One inserted Pass # 1 Priority One Removed Synergy 3.5 0x20 Drug Eluting stent was inserted. Angiogram performed post stent deployment. Emerge 3.00x12 Ballo on catheter was inserted. Angiogram performed post balloon dilatation. Synergy 3.50x12 Drug Eluting s tent was inserted. Synergy 3.50x8 Drug Eluting stent was inserted. Drug Eluting stent was removed int act, failed to cross lesion 6fr Guideliner Guide catheter was inserted and engaged into the RCA. Syne rgy 3.50x8 Drug Eluting stent was inserted. Angiogram performed post stent deployment. NC Emerge 3.00 x15 Balloon catheter was inserted. Angiogram performed post stent deployment. The R radial arterial sheath was pulled and a TR Band was applied for hemostasis 15 cc air inserted. The ri t femoral arterial sheath was secured in place and capped INTERVENTION INFORMATION LESION SITE: RCA (Mid) Lesion Complexity: High/C, chronic total occlusion: No, lesion at bifurcation: No, thrombus present: Yes, lesion length: 24 mm, culprit lesion: Yes, Previously treated lesion: No Pre Stenosis: 80 % Pre intervention DINA flow: 3 PROCEDURE: Drug Eluting Stent with pre dilatation., Thrombectomy It was a difficult case due to partially occluded R brachiocephalic artery and tortuous and calcified iliac arteries and aorta. The RCA was also tortuous and calcified. Briefly patient had distal emboli zation during PCI which resulted in her dropping her BP precipitously. Thrombectomy and integrillin r estored flow and BP. Stent delivery was difficult as well but successful Post Stenosis: 0 % Post intervention DINA flow: 3 Lesion Devices: Leyva .014 BMW [place] Straight 190cm Medtronic 6 Fr AL1.0 100cm Guide Catheter Leonid Sci EMERGE MR 3.00x12 BALLOON Terumo Priority One Aspiration Catheter Leonid Sci Synergy MR MUSHTAQ 3.50x20 Leonid Sci Synergy MR MUSHTAQ 3.50x08 Vascular Solutions 6 [place] GuideLiner Leonid Sci NC EMERGE MR 3.50x15 BALLOON COMPLICATIONS No Complications PROCEDURE MEDICATIONS Fentanyl 50 mcg IV Versed 1 mg IV Versed 1 mg IV Fentanyl 25 mcg IV Fentanyl 25 mcg IV Fentanyl 25 mcg IV Oxygen: 2 L/min via nasal cannula Atropine 1mg/10ml 0.5 amp 12/11/2019 09:17:19 Brilinta 180 mg PO @ 12/11/2019 09:58:11 Heparin diluted in 23cc Heparinized saline. Patient given 10cc IA of this solution. 12/11/2019 08:08: 35 Heparin 7000 unit(s) IV 12/11/2019 09:00:18 Lasix 40 mg IV 12/11/2019 09:23:28 Verapamil 2.5mg, Ntg 100mcgs, 2000 units of Heparin diluted in 23cc Heparinized saline. Patient give n 10cc IA of this solution. 12/11/2019 08:08:35 IV Bolus: .9 NaCl 800ml total 12/11/2019 09:12:03 SUMMARY OF HEMODYNAMIC DATA Time AIR REST ECG 07:05:45 AO 92/55 (72) SA 08:13:15 AO 198/62 (112) 08:39:47 AO 87/38 (58) 09:08:19 AO 185/71 (121) 09:18:29 Signed By Cas Herrera MD On 12/12/2019 10:23:11 AM Cas Herrera MD
--- NOTE | 2019-12-12 13:42 | NURSING ---
Pt discharged home w/daughter. Upon d/c pt reported that she was 'feeling queasy' but thought she was just excited and maybe needed to urinate. Pt emptied colostomy bag and voided. Denies dizziness/lightheadedness/chest pain/sob. Denies groin pain at cath site. Pt reports she gets anxious at times 'because I'm [place]' and that she is just excited to go home.
[2019-12-13 09:11] LABS: ACT Activated Clotting Time 147 sec (74-137)
== END 2019-12-12 13:20 | disposition home or self-care (01) ==
LOC: CLSP 06:26 → ICU 12-12 08:21
PROVIDERS: Specialist; PCP Family Medicine; Referring Provider Internal Medicine Cardiovascular Disease; Visit Provider Internal Medicine Cardiovascular Disease
DX: I25.10 Atherosclerotic heart disease of native coronary artery without angina pectoris (principal); E78.5 Hyperlipidemia, unspecified; I10 Essential (primary) hypertension; E11.9 Type 2 diabetes mellitus without complications; K21.9 Gastro-esophageal reflux disease without esophagitis; J44.9 Chronic obstructive pulmonary disease, unspecified; F17.200 Nicotine dependence, unspecified, uncomplicated; Z95.5 Presence of coronary angioplasty implant and graft
CPT/HCPCS: 80053; 82274; 85027; 85347; 92928; 93005; 93458; 94640; 99152; 99153; C1757; J7030; J7040; Q9967; A4216; C1725; C1769; C1874; C1887; C1894; C9600; J1327; J1940; J2405

== ENCOUNTER 2019-12-13 21:01 | Emergency (ER) | payer MEDICARE, SELFPAY ==
[2017-12-22 12:49] VITALS: BMI 49.4
[2019-12-11 10:57] VITALS: BMI 39.6
[2019-12-13 21:02] VITALS: BP 111/50; PULSE 68; RESP 18; TEMP 36.4; O2SAT 93; BMI 39.9
--- NOTE | 2019-12-13 22:19 | CT_ITS ---
We are attempting to reach an attending provider to discuss findings. An addendum with communication details will be sent when the communication is complete. STUDY: CT ABDOMEN AND PELVIS WITH CONTRAST REASON FOR EXAM: Female, 79 years old. ABDOMEN PAIN,NAUSEA,VOMITING AND DRY Heaves, elevated WBC,? SBO -- HX:ASTHMA,COPD,CHF,DIVERTICULITIS,HLD,HTN,ABDOMINAL HERNIA -- Surgery: heart STENT,COLOSTOMY,CHOLECYSTECTOMY RADIATION DOSAGE (If Supplied By Facility): CTDIvol = ( 25.26 ) mGy, DLP = ( 1139.15 ) mGycm TECHNIQUE: Transaxial images were obtained from the dome of the diaphragm to the symphysis pubis without oral contrast. IV 100mL Isovue-300 was administered. Sagittal and coronal images were reconstructed. Individualized dose optimization techniques were used for this CT. COMPARISON: December 02, 2019, November 14, 2018 CT scan abdomen and pelvis CT scan abdomen and pelvis FINDINGS: There is a persistent focus of what may be inflammatory change or mucus plugging with atelectasis in the right middle lobe. There are areas of groundglass opacity within the lung bases including peribronchial inflammatory change worse than the prior study. In the right lung base, there is worsening patchy opacities suspicious for multifocal pneumonia. There are visualize coronary calcifications. When compared to the recent prior study December 01 there is persistent intrahepatic ductal dilatation. This is slightly greater than the prior study November 14, 2018. The common duct at the douglas hepatis measures 1.3 cm. The level of the pancreas that measures 1.0 cm. There are surgical clips in the gallbladder fossa consistent with a prior cholecystectomy. Normal spleen. Normal pancreas. Normal bilateral adrenal glands. The right kidney measures 6.7 x 7.1 cm. There is a small focus of nonobstructing calcifications in the right hilum which are likely vascular. There is a right renal cyst measuring 4.1 x 4.8 cm with Hounsfield units in the range of simple fluid. This cyst appears slightly smaller than the prior study November 14, 2018. The left kidney measures 10.4 x 7.3 cm. There is a minimal left renal cyst measuring 5.0 mm. Stable since prior studies. There is no evidence of hydronephrosis. There is postoperative change in the proximal stomach. There are multiple distended loops of small bowel. Since the prior study there is distention of the small bowel that extends into the right to midline abdominal wall hernia. The bowel is distended and has a fecal stasis appearance worse than December 02, 2019 and new since November 14, 2018. This accompanies the loop of decompressed small bowel that is known to this region as well as an ileostomy site. It appears that there is a loop of obstructive distended bowel which is looped out into the fat adjacent to previous ileostomy. See image #61 of the axial views. Second herniation: Caudal to the umbilicus there is a persistent herniation of fat in small bowel compared to the prior study December 02, 2019. This is worsening overtime since November 14, 2018. On today''s study there is a distended tortuous loop of small bowel with air-fluid level that is deep to the ileostomy bag or loops seen external to the patient. See image #81 of the axial views. There are multiple distended loops of small bowel present. The sigmoid colon stone is just deep to the aforementioned [place] umbilical herniation. See image #85. The sigmoid stump is seen directly deep to the herniated small bowel at the level of the pelvis. The rest of the colon appears to been resected. Aorta is calcified. There is dense calcification of the takeoff of the celiac sprue mesenteric artery and bilateral renal arteries. There is moderate aortic stenosis of the infrarenal aorta with a calcification extending into the lumen which is similar to the prior studies dating back to November 14, 2018. There is dense calcification of the bilateral common iliac arteries. Normal inferior vena cava. Normal retroperitoneum. Normal urinary bladder. There is atrophy of the uterus. The abdominal wall is as detailed above. There is a focus of fatty herniation in the midline. There are 2 abdominal wall hernias areas of scarring and small bowel obstruction. There is multilevel degenerative change of the thoracolumbar spine including multilevel spondylosis vacuum phenomenon. This is unchanged since the prior study. CT/Abdomen/Pelvis W IV Cont ONLY IMPRESSION: 2 obstructing abdominal wall hernias containing small bowel. Right to midline, midline, abdominal wall hernias containing distended obstructed small bowel as detailed above. Status post gastric bypass. As an anatomic note the sigmoid stump is sits just beneath the lower abdominal wall hernia. Status post colectomy. Multifocal pneumonia. Could consider viral pneumonia. Status post cholecystectomy intra and extrahepatic ductal dilatation similar to the recent prior study. Advanced atherosclerotic disease of the aorta with moderate focal aortic stenosis at the level of the infrarenal aorta. Mild right renal atrophy smaller right renal cysts. Atherosclerotic disease of aorta. Electronically Signed: Olimpia Rico MD at 0:29 EDT Tel , Service support ,
[2019-12-13] MEDS: Morphine 4 MG/ML Syringe IV (22:26)
[2019-12-13] MEDS: Ondansetron 4 MG/2 ML Vial IV (22:26)
[2019-12-13] MEDS: 0.9% Normal Saline 1,000 ML 125 ML IV (22:28)
[2019-12-13 22:54] LABS: Bacteria 0 SEEN /hpf (None Seen); Mucous, Urine 0 SEEN /hpf (<or=2+); Squamous Epithelial Cells - UA 0 SEEN /hpf (5-10)
[2019-12-13 23:01] LABS: Absolute Lymphocyte Count 1.87 X10^3/uL (0.83-4.51); Absolute Neutrophil Count 9.9 X10^3/uL (2.0-7.7); Basophil# 0.06 X10^3/uL; Basophil% 0.5 % (0-1); Eosinophil# 0.32 X10^3/uL; Eosinophils% 2.4 % (0-5); Hematocrit 29.7 % (37-47); Hemoglobin 9.1 g/dL (12.0-15.0); Lymphocyte # 1.87 X10^3/ul (4.0); Mean Corp Hgb Conc 30.6 g/dL (32-36); Mean Corpuscular Volume 94.6 fL (81-99); Mean Platelet Vol. 8.3 fl (6.2-12.0); Monocyte# 0.86 X10^3/uL; Monocyte% 6.5 % (0-10); NRBC Flagged by Analyzer 0 % (0-5); Neutrophil # 9.86 X10^3/uL (2.7-7.7); Platelet Count 346 K/mm3 (150-450); RBC Distribution Width CV 14.6 % (11.6-14.6); RBC Distribution Width SD 50.6 fl (35.1-43.9); Red Blood Count 3.14 M/mm3 (4.2-5.4); White Blood Count 13.3 K/mm3 (4.4-11.0)
[2019-12-13 23:06] LABS: Color, Urine Yellow (Yellow); Glucose, Dipstick Normal (Normal); Ketone-Dipstick Negative (Negative); Leukocyte Esterase-Dipstick 25 /ul (Negative); Nitrite-Dipstick Negative (Negative); Occult Blood-Urine 10 /ul (Negative); Protein-Dipstick 30 mg/dl (Negative); Urine Bilirubin Dipstick Negative (Negative); Urine Clarity Clear (Clear); Urine Urobilinogen Normal (Normal)
--- NOTE | 2019-12-13 23:13 | ED.DCSUM_ITS ---
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 Patient symptoms began today. She was just discharged from the hospital 2 days ago. She had a an abnormal stress test and underwent heart catheterization with stents. She states that today, she had some diffuse abdominal cramping with nausea and one episode of dry heaves. She states that she massaged her abdomen and there was still stool output and gas into her ostomy. She has had similar presentation about 10 days ago where she had a parastomal hernia causing small bowel obstruction. She states the pain is not as severe. Prior similar symptoms: Yes Recent Illness/Hospitalization: Yes Past Medical History - Allergies and Home Meds Allergies/Adverse Reactions: Allergies aspirin [ASA] Allergy (Severe, Verified 12/13/19 21:05) Hives bupropion [From Wellbutrin] Allergy (Verified 12/13/19 21:05) Unknown codeine Allergy (Verified 12/13/19 21:05) Hives meperidine HCl [From Demerol] Allergy (Verified 12/13/19 21:05) Hives naproxen sodium [From Anaprox] Allergy (Verified 12/13/19 21:05) Hives propoxyphene HCl [From Darvon] Allergy (Verified 12/13/19 21:05) Hives Sulfa (Sulfonamide Antibiotics) Allergy (Verified 12/13/19 21:05) hives, trouble breathing gabapentin Adverse Reaction (Intermediate, Verified 12/13/19 21:05) Mental status change, foggy headed NSAIDS (Non-Steroidal Anti-Inflamma Adverse Reaction (Verified 12/13/19 21:05) Hives Primary Care Physician: Vicente Raya III, MD [Primary Care Provider] - Prior records reviewed: Yes Past Medical History: - - Coronary vascular disease status post stenting, hypertension, hyperlipidemia Surgical History: angioplasty Smoking Status: Current every day smoker - Family History Maternal Family History: Family History (Last Reviewed 12/10/19 @ 17:17 by Marisela QUIJANO, PA) Mother CVA (cerebral vascular accident) Father Asthma Hypertension High blood cholesterol level Arthritis Family History: Reports: Stroke Review of Systems General: Denies: Chills, Fever, Sweats Eyes: Denies: Visual changes - bilaterally, Diplopia ENT: Denies: Rhinorrhea, Sore throat Cardiovascular: Denies: Chest pain, Palpitations Respiratory: Denies: Dyspnea, Cough, Dyspnea on exertion Gastrointestinal: Reports: Abdominal pain, Nausea, Vomiting. Denies: Diarrhea, Melena, Hematochezia Genitourinary: Denies: Dysuria, Hematuria, Frequency Musculoskeletal: Denies: Back pain, Extremity Pain Skin: Denies: Rash, Wounds Neurological: Denies: Headache, Weakness, Numbness Physical Exam Vital Signs/Narrative: Vital Signs Temp Pulse Resp BP Pulse Ox 12/13/19 21:02 97.6 F L 68 18 111/50 L 93 Inital Vital Signs reviewed: Yes General: Well nourished, Well developed, No Acute Distress Head: Normocephalic, Atraumatic Eyes: Perrl, EOMI ENT: Moist mucous membranes, No rhinorrhea Neck: Supple, Nontender Cardiovascular: Regular rate, Regular rhythm, No murmurs Respiratory: No distress, CTA bilaterally, Chest nontender Abdomen: Soft, Nondistended, Normal bowel sounds, Tender, Umbilical hernia, Hernia reducible. Negative for: Guarding, Rebound tenderness Back: Nontender, Normal Inspection Extremities: Nontender, No edema Skin: Normal color, No rash Neurological: Alert, Oriented x3, Cranial nerves II-XII grossly intact, Normal Strength, Normal Sensation Psychological: Normal affect, Normal Mood Diagnostic/Tx/Re-eval Clinical Impression(s) from Imaging Studies Abdomen/Pelvis CT 12/13/19 22:19 IMPRESSION: 2 obstructing abdominal wall hernias containing small bowel. Right to midline, midline, abdominal wall hernias containing distended obstructed small bowel as detailed above. Status post gastric bypass. As an anatomic note the sigmoid stump is sits just beneath the lower abdominal wall hernia. Status post colectomy. Multifocal pneumonia. Could consider viral pneumonia. Status post cholecystectomy intra and extrahepatic ductal dilatation similar to the recent prior study. Advanced atherosclerotic disease of the aorta with moderate focal aortic stenosis at the level of the infrarenal aorta. Mild right renal atrophy smaller right renal cysts. Atherosclerotic disease of aorta. Electronically Signed: Olimpia Rico MD at 0:29 EDT Tel , Service support , Abnormal Lab Results 12/13/19 12/13/19 12/13/19 22:45 22:45 22:45 WBC 13.3 H RBC 3.14 L Hgb 9.1 L Hct 29.7 L MCV 94.6 MCH 29.0 MCHC 30.6 L RDW Std Deviation 50.6 H RDW Coeff of [place] 14.6 Plt Count 346 MPV 8.3 Immature Gran % (Auto) 2.600 H Neut % (Auto) 74.0 H Lymph % (Auto) 14.0 L [place] % (Auto) 6.5 Eos % (Auto) 2.4 Baso % (Auto) 0.5 Absolute Neuts (auto) 9.9 H Absolute Lymphs (auto) 1.87 Nucleated RBC % 0 Sodium 142 Potassium 5.1 Chloride 113 H Carbon Dioxide 24.0 Anion Gap 5 BUN 31 H Creatinine 1.20 H Estim Creat Clear Calc 30.56 Est GFR (MDRD) Af Amer 56 L Est GFR (MDRD) Non-Af 46 L BUN/Creatinine Ratio 25.8 H Glucose 90 Lactic Acid 0.8 Calcium 8.2 L Total Bilirubin 0.40 AST 22 ALT 22 Alkaline Phosphatase 137 H Total Protein 7.2 Albumin 2.7 L Globulin 4.5 H Albumin/Globulin Ratio 0.6 L Lipase 137 Urine Color Urine Clarity Urine pH Ur Specific [place] Urine Protein Urine Glucose (UA) Urine Ketones Urine Occult Blood Urine Nitrite Urine Bilirubin Urine Urobilinogen Ur Leukocyte Esterase Urine RBC Urine WBC Ur Squamous Epith Cells Urine Bacteria Urine Mucus 12/13/19 22:45 WBC RBC Hgb Hct MCV MCH MCHC RDW Std Deviation RDW Coeff of [place] Plt Count MPV Immature Gran % (Auto) Neut % (Auto) Lymph % (Auto) [place] % (Auto) Eos % (Auto) Baso % (Auto) Absolute Neuts (auto) Absolute Lymphs (auto) Nucleated RBC % Sodium Potassium Chloride Carbon Dioxide Anion Gap BUN Creatinine Estim Creat Clear Calc Est GFR (MDRD) Af Amer Est GFR (MDRD) Non-Af BUN/Creatinine Ratio Glucose Lactic Acid Calcium Total Bilirubin AST ALT Alkaline Phosphatase Total Protein Albumin Globulin Albumin/Globulin Ratio Lipase Urine Color Yellow Urine Clarity Clear Urine pH 5.0 Ur Specific [place] 1.010 Urine Protein 30 H Urine Glucose (UA) Normal Urine Ketones Negative Urine Occult Blood 10 H Urine Nitrite Negative Urine Bilirubin Negative Urine Urobilinogen Normal Ur Leukocyte Esterase 25 H Urine RBC 0-5 SEEN Urine WBC 0-5 SEEN Ur Squamous Epith Cells 0 SEEN Urine Bacteria 0 SEEN Urine Mucus 0 SEEN - Medical Decision Making The patient presents with increasing abdominal pain, nausea, and vomiting along with dry heaves. She did have some air and stool through her ostomy prior to arrival. She denies any fevers or chills. She states she had a cough for about 6 weeks. Patient was treated with IV fluids, morphine, and Zofran. When she was comfortable, I was able to easily reduce the umbilical hernia, but given the abdominal distention it does return. Her parastomal hernia however is unable to be reduced. Screening labs are obtained. She does have a leukocytosis. Lactic acid was negative. Patient underwent CT of her abdomen and pelvis which was markedly abnormal. She does have small bowel obstruction secondary to incarcerated parastomal hernia. There is no evidence of strangulation. The patient had the same symptoms about 10 days ago and was transferred to [facility] where she is had all of her abdominal surgery. At this point given her significant comorbidities and the fact that all of her surgical care has been done through the [facility], I do feel this would be the best place for her. Her pain and nausea are controlled. I discussed the patient with Dr. Carmen, on-call for colorectal. She deferred to general surgery. The patient was discussed with. Patient was accepted in transfer under Dr. Viveros. Impression 1. Small bowel obstruction secondary to incarcerated parastomal hernia 2. Nausea vomiting 3. History of gastric bypass 4. Recent heart catheterization with stents ED Disposition - Plan for ED Patient: Referrals: Vicente Raya III, MD [Primary Care Provider] -
[2019-12-13 23:14] LABS: Red Blood Cells-Urine 0-5 SEEN /hpf (0-5); White Blood Cells 0-5 SEEN /hpf (0-5)
[2019-12-13 23:29] LABS: ALB/GLOB Ratio 0.6 RATIO (0.9-2.4); AST(SGOT) 22 U/L (15-37); Alanine Aminotransfer ALT/SGPT 22 U/L (13-56); Albumin, Serum 2.7 g/dL (3.2-5.0); Alkaline Phosphatase 137 U/L (45-117); Anion Gap 5 (5-15); BUN 31 mg/dL (7-18); BUN/Creat Ratio 25.8 RATIO (10-20); Calcium,Total 8.2 mg/dL (8.5-10.1); Chloride 113 mmol/L (98-107); EST Glomerular Filtration Rate 46 mL/min (>60); Est Glom Filt Rate - Afr Amer 56 mL/min (>60); Estimated Creatinine Clearance 30.56 ml/min; Globulin 4.5 g/dL (2.2-4.2); Glucose 90 mg/dL (74-106); Lipase 137 U/L (73-393); Potassium 5.1 mmol/L (3.5-5.1); Protein, Total 7.2 g/dL (6.4-8.2); Sodium Level 142 mmol/L (136-145)
[2019-12-13 23:31] LABS: Lactic Acid 0.8 mmol/L (0.4-1.9)
[2019-12-14 00:02] VITALS: BP 130/50; PULSE 72; RESP 16; O2SAT 98
--- NOTE | 2019-12-14 00:52 | ED.RN ---
[facility] paged for transfer
[2019-12-14] MEDS: Morphine 4 MG/ML Syringe IV (01:25)
[2019-12-14 02:02] VITALS: O2SAT 88
[2019-12-14 02:04] VITALS: BP 95/75; PULSE 56; RESP 16; O2SAT 100
[2019-12-14 04:10] VITALS: BP 110/70; PULSE 68; RESP 16; O2SAT 98
== END 2019-12-14 04:31 | disposition short-term general hospital (02) ==
PROVIDERS: Emergency Provider Emergency Medicine; PCP Family Medicine
DX: K43.6 Other and unspecified ventral hernia with obstruction, without gangrene (principal); I10 Essential (primary) hypertension; E78.5 Hyperlipidemia, unspecified; F17.200 Nicotine dependence, unspecified, uncomplicated; Z98.84 Bariatric surgery status; Z95.5 Presence of coronary angioplasty implant and graft; Z79.899 Other long term (current) drug therapy
CPT/HCPCS: 36415; 74177; 80053; 81001; 83605; 83690; 85025; 96361; 96374; 96375; 96376; 99285; J7030; Q9967; A4216; J2405

== ENCOUNTER 2020-02-11 21:50 | Emergency (ER) | payer MEDICARE, SELFPAY ==
[2017-12-22 12:49] VITALS: BMI 49.4
[2020-01-25 11:23] VITALS: BMI 40.8
[2020-02-11 21:51] VITALS: BP 124/53; BP 150/76; PULSE 76; PULSE 83; RESP 16; RESP 24; TEMP 37.3; O2SAT 96; BMI 43.4
[2020-02-11 21:57] VITALS: BP 124/53; PULSE 76; RESP 24; TEMP 37.3; O2SAT 96
--- NOTE | 2020-02-11 22:21 | EKG12_ITS ---
Test Reason : SOB Blood Pressure : / mmHG Vent. Rate : 078 BPM Atrial Rate : 078 BPM P-R Int : 184 ms QRS Dur : 082 ms QT Int : 368 ms P-R-T Axes : 068 068 119 degrees QTc Int : 419 ms Normal sinus rhythm Septal infarct , age undetermined Nonspecific ST and T wave abnormality Abnormal ECG Confirmed by STEFANIE LEI, SUMA ([id number]), food editor ANDIE GARY ([id number]) on 02/13/2020 9:46:57 AM Referred By: RENETTA Confirmed By:SUMA WATTS MD
[2020-02-11 22:57] VITALS: BP 124/53; PULSE 80; RESP 21; TEMP 37.4; O2SAT 97
[2020-02-11 23:00] VITALS: BP 154/71; PULSE 82; RESP 21; TEMP 37.3; O2SAT 96
[2020-02-11 23:03] LABS: Absolute Lymphocyte Count 1.15 X10^3/uL (0.83-4.51); Basophil# 0.04 X10^3/uL; Basophil% 0.4 % (0-1); Eosinophil# 0.04 X10^3/uL; Eosinophils% 0.4 % (0-5); Hematocrit 27.8 % (37-47); Hemoglobin 8.3 g/dL (12.0-15.0); Lymphocyte # 1.15 X10^3/ul (4.0); Lymphocyte % 10.7 % (19-41); Mean Corp Hgb Conc 29.9 g/dL (32-36); Mean Corpuscular Hgb 25.9 pg (27.0-32.0); Mean Corpuscular Volume 86.9 fL (81-99); Monocyte# 0.35 X10^3/uL; Monocyte% 3.3 % (0-10); NRBC Flagged by Analyzer 0 % (0-5); Neutrophil # 9.03 X10^3/uL (2.7-7.7); Neutrophil % 83.8 % (47-70); Platelet Count 273 K/mm3 (150-450); RBC Distribution Width CV 15.8 % (11.6-14.6); RBC Distribution Width SD 50.2 fl (35.1-43.9); White Blood Count 10.8 K/mm3 (4.4-11.0)
--- NOTE | 2020-02-11 23:05 | RAD_ITS ---
HISTORY: sob, chills, pain in legs and back,loss of taste and smell EXAMINATION/TECHNIQUE: XR Chest 1 View: COMPARISON: January 25, 2019 FINDINGS: LINES/DEVICES: None. LUNGS: Patchy airspace opacities are seen within the lung bases with left basilar atelectasis also noted No pneumothorax. MEDIASTINUM AND CARDIOVASCULAR STRUCTURES: Cardiac silhouette not enlarged. Central airways and mediastinal contour are unremarkable. BONES AND SOFT TISSUES: Unremarkable. RAD/Chest 1 View (Portable) IMPRESSION: Patchy groundglass airspace opacity seen within the lung bases with minimal atelectasis in the left lung base at 2329 Reported and signed by: Olimpia Johnson DO Electronically Signed: Olimpia Johnson DO at 23:28 EST Tel , Service support ,
[2020-02-11 23:08] LABS: BUN 26 mg/dL (7-18); Creatinine, Serum 1.29 mg/dL (0.55-1.02); EST Glomerular Filtration Rate 42 mL/min (>60); Estimated Creatinine Clearance 28.43 ml/min; Glucose 103 mg/dL (74-106)
[2020-02-11 23:09] LABS: Anion Gap 1 (5-15); BUN/Creat Ratio 20.2 RATIO (10-20); Chloride 114 mmol/L (98-107); Est Glom Filt Rate - Afr Amer 51 mL/min (>60); Potassium 5.6 mmol/L (3.5-5.1); Sodium Level 142 mmol/L (136-145)
[2020-02-11 23:11] LABS: Mucous, Urine 0 SEEN /hpf (<or=2+); Red Blood Cells-Urine 0 SEEN /hpf (0-5); Squamous Epithelial Cells - UA 0 SEEN /hpf (5-10)
[2020-02-11 23:19] LABS: Glucose, Dipstick Normal (Normal); Ketone-Dipstick Negative (Negative); Leukocyte Esterase-Dipstick 100 /ul (Negative); Nitrite-Dipstick Negative (Negative); Occult Blood-Urine 50 /ul (Negative); Protein-Dipstick 100 mg/dl (Negative); Specific Gravity, Urine 1.015 (1.002-1.030); Urine Bilirubin Dipstick Negative (Negative); Urine Urobilinogen Normal (Normal)
[2020-02-11 23:24] LABS: Color, Urine Yellow (Yellow); Urine Clarity Clear (Clear)
[2020-02-11 23:25] LABS: White Blood Cells 10-25 SEEN /hpf (0-5)
[2020-02-11 23:26] LABS: D-Dimer Quantitative (DVT/PE) 2.39 FEU/ug/m (0.27-0.49)
[2020-02-11 23:26] LABS: Transitional Epithelial - Ur 0-5 SEEN /hpf (0-5)
[2020-02-11 23:27] LABS: Bacteria RARE /hpf (None Seen)
--- NOTE | 2020-02-11 23:29 | CT_ITS ---
HISTORY: Shortness of breath, chills, pain in legs, loss of taste and smell. TECHNIQUE:CTA Chest WO/W Contrast Injection A CT of the chest was performed following the administration of ml 100mL Isovue-370 Thin axial reconstructed images were performed through the pulmonary vasculature as per the routine pulmonary embolus protocol.MIP and mutiplanar reconstructions A dose optimization technique was used during the scan # of images including paperwork:[id number] Comparison: Chest radiograph on February 11, [address] of the chest on April 19, 2018 FINDINGS: No aneurysm or dissection. Pulmary arteries: No evidence of pulmonary emboli The heart is mildly enlarged No evidence of right heart strain. No pericardial effusion. No pleural effusion. There is carinal adenopathy as well as right hilar adenopathy The thyroid gland is unremarkable No axillary adenopathy. The lungs patchy opacification seen within the upper lobe suspect for air-trapping There is atelectasis in the right lower lobe with minimal peripheral patchy airspace opacity Atelectasis in the left lower lobe. There is nodular density seen within the right lower lobe on axial image 88 series 2 that measures approximately 1.1 cm in length. This is more prominent than on the prior study. Consider PET/CT for further evaluation. Pneumpothorax: none The trachea and central airways appear patent . Limited views of the upper abdomen small hiatal hernia with associated wall thickening. No acute osseous abnormality. IMPRESSION: No aneurysm, dissection, or pulmonary embolism Cardiomegaly without evidence of right heart strain Probable air trapping within the upper lobes There is atelectasis in the left lower lobe. Minimal patchy airspace opacity is seen within the periphery of the left lower lobe which is nonspecific finding and may be related to atelectasis or pneumonitis Nodular density seen within the right lower lobe that is more prominent than on the prior study. Consider PET/CT for further evaluation Individualized dose optimization techniques were used for this CT. at 0043 Reported and signed by: Olimpia Johnson DO Electronically Signed: Olimpia Johnson DO at 0:42 EST Tel , Service support , CT/CTA Chest W/WO Contrast
--- NOTE | 2020-02-11 23:29 | ED.RN ---
spoke with pt daughter per pt request.
[2020-02-11] MEDS: Ceftriaxone 1 GM/50 ML BAG IV (23:50)
--- NOTE | 2020-02-12 00:06 | ED.DCSUM_ITS ---
- ER Visit Summary Date of Service: 02/12/20 Chief Complaint: Cough History of Present Illness: The patient is a [address] Vicente Raya iii. She was formally a patient of Dr. Dolan. She reports she has a cough began approximately 1 month ago. Is productive yellow sputum with specks of blood. She was states that she had pneumonia last month and that it is still showing the bottom of her lungs. States that her cough never resolved. However, she reports that she is now having subjective fever and chills. She has had sick contacts. However, she does wear a mask. Patient reports she has had intermittent chest pain that comes and goes in the last seconds to an hour at a time. Last episode was approximately 2 hours ago and occurred at rest. She reports pain is 6 out of 10 at worst and she is pain- free currently. Rate increased with exertion and decreased with nitro. She reports she is short of breath, nauseated, and diaphoretic with this. Physical Examination: Vitals: Stable. Afebrile. General: Well-nourished and well-developed. Head: Normocephalic atraumatic. Neck: Supple, no lymphadenopathy. No JVD. Nontender. Cardiovascular: Regular rate and rhythm. No murmurs. Respiratory: No respiratory distress. Clear to auscultation bilaterally. Abdominal: Soft, nontender, nondistended, normal bowel sounds. No guarding, rebound, or peritoneal signs. Back: Nontender. Extremities: Nontender, no edema. Skin: Normal color, no rash. Neurologic: Alert and oriented ?3. Cranial nerves II through XII are intact. Normal strength and sensation. Psych: Normal affect. Test Results: EKG is sinus at [address] changes. She does have minimal ST depression in leads V5 and V6 with T wave inversions in these leads as well. This is a change from December 11, 2019. Troponin 0 0.019. Lactic acid is 1.0. UA shows 10-25 white blood cells and rare bacteria. Chem-7 shows potassium of 5.6, chloride 114, calcium 8.0, BUN 26, creatinine 1.29. CBC shows an H&H of 8.3, 27.8, second neutrophils 84, lymphocytes of 11, immature granulocytes 1.4%. COVID-19 rapid antigen is negative. Clinical Impression(s) from Imaging Studies Chest X-Ray 11/30/20 23:05 IMPRESSION: Patchy groundglass airspace opacity seen within the lung bases with minimal atelectasis in the left lung base at 2329 Reported and signed by: Olimpia Johnson DO Electronically Signed: Olimpia Johnson DO at 23:28 EST Tel , Service support , Chest CTA 02/11/20 23:29 IMPRESSION: No aneurysm, dissection, or pulmonary embolism Cardiomegaly without evidence of right heart strain Probable air trapping within the upper lobes There is atelectasis in the left lower lobe. Minimal patchy airspace opacity is seen within the periphery of the left lower lobe which is nonspecific finding and may be related to atelectasis or pneumonitis Nodular density seen within the right lower lobe that is more prominent than on the prior study. Consider PET/CT for further evaluation Individualized dose optimization techniques were used for this CT. at 0043 Reported and signed by: Olimpia Johnson DO Electronically Signed: Olimpia Johnson DO at 0:42 EST Tel , Service support , Emergency Department Course and Treatment: Patient was given deficits of aspirin p.o. and Rocephin IV. Treatment Plan: The patient would like to go home. She has oxygen at home. She is finishing her steroids tomorrow. She will be discharged on Levaquin. Instructed to follow-up with her primary care physician in 1 to 2 days if not improving. Return to the emergency department for any worsening symptoms. Disposition: To home in improved and stable condition.. Impression: 1. Hyperkalemia. 2. UTI. 3. Anemia. 4. Chest pain. 5. Left lower lobe pneumonitis. 6. Pulmonary nodule. This note was generated with [employer] software. It may contain incorrect words, spelling, and punctuation that were not noted in review of the chart prior to signing ED Disposition - Plan for ED Patient: Instructions: ED Urinary Tract Infections in Women, ED Pulmonary Nodule, Solitary Prescriptions: Levofloxacin [Levaquin] 750 mg PO DAILY #7 tablet Referrals: Vicente Raya III, MD [Primary Care Provider] - 1-2 Days if not improving
[2020-02-12] MEDS: Aspirin 81 MG TAB.CHEW 324 MG PO (00:52)
[2020-02-12 01:01] VITALS: BP 170/75; PULSE 83; RESP 20; O2SAT 98
--- NOTE | 2020-02-13 20:59 | ED.RN ---
lab called with positive blood culture results. gram negative in rods growing at this time. Spoke with Dr. Finney who removed the case. Patient is currently on levaquin which is the proper treatment. advised to call patient and she how she was doing. If not doing better then she needs to come in and be admitted. Spoke with patient at this time who advised she is feeling much better. Patient made aware of test results. Patient advises verbal understanding of plan of care.
== END 2020-02-12 01:52 | disposition home or self-care (01) ==
LOC: ED 22:15
PROVIDERS: Emergency Provider Emergency Medicine; PCP Family Medicine
DX: J18.9 Pneumonia, unspecified organism (principal); R91.1 Solitary pulmonary nodule; N39.0 Urinary tract infection, site not specified; E87.5 Hyperkalemia; R07.9 Chest pain, unspecified; D64.9 Anemia, unspecified; I25.10 Atherosclerotic heart disease of native coronary artery without angina pectoris; I50.9 Heart failure, unspecified; J44.9 Chronic obstructive pulmonary disease, unspecified; Z72.0 Tobacco use; Z79.51 Long term (current) use of inhaled steroids; Z79.899 Other long term (current) drug therapy
CPT/HCPCS: 71045; 71275; 80048; 81001; 83605; 84484; 85025; 85379; 87040; 87077; 87086; 87088; 87186; 87426; 93005; 96365; 99285; Q9967; A4216

== ENCOUNTER 2020-02-25 13:49 | Inpatient (IN) | payer MEDICARE, SELFPAY ==
[2017-12-22 12:49] VITALS: BMI 49.4
[2020-02-25] VITALS (18 sets, daily range): BP systolic 108–155; BP diastolic 42–84; PULSE 65–89; RESP 18–28; TEMP 36.1–37.1; O2SAT 81–100; BMI 43.9; BMI 43.4
--- NOTE | 2020-02-25 14:04 | EKG12_ITS ---
Test Reason : SOB Blood Pressure : / mmHG Vent. Rate : 070 BPM Atrial Rate : 070 BPM P-R Int : 200 ms QRS Dur : 084 ms QT Int : 396 ms P-R-T Axes : 055 062 198 degrees QTc Int : 427 ms Normal sinus rhythm Nonspecific ST and T wave abnormality Abnormal ECG Confirmed by KALIN LEI, VIVEK ([id number]), industrial editor TEE UGARTE ([id number]) on 03/04/2020 7:17:59 AM Referred By: SAMIRA Confirmed By:EVI GAGNON MD
--- NOTE | 2020-02-25 14:05 | ED.VISSUMM ---
- ER Visit Summary Date of Service: 02/25/20 Chief Complaint: [Shortness of breath] History of Present Illness: The patient is a 79 F [presents to the ER with shortness of breath for about 2 weeks. Patient was seen in the emergency department 2 weeks ago and had a work-up that showed bilateral lower lobe infiltrates and was started on Levaquin. Her rapid Covid test was negative at that time. Patient has history of COPD and continues to smoke. Patient complains of exertional dyspnea. Patient continues to cough and bring up yellow sputum. Has had no fever. She denies chest pain currently but intermittently has some discomfort. She denies any COVID-19 exposures although she states that she has several healthcare workers in her family that she has been around. Patient has history of asthma, COPD, coronary artery disease, hypertension, and GERD.] Patient was noted to be 81% on room air on arrival to the ER. Patient states that she normally wears home O2 at night and just as needed. She complains of a extreme exertional dyspnea. Physical Examination: [HEENT-PERRLA, EOMI. Cranial nerves II through XII grossly intact. TMs clear. Mucous membranes moist. No adenopathy. Cardiovascular-regular rate and rhythm without murmur or ectopy Lungs-clear to auscultation, chest wall stable without crepitus or subcu emphysema. Occasional coarse breath sounds with some faint expiratory wheezes noted. No accessory muscle use or retractions. Abdomen-normoactive bowel sounds, soft, nontender, no rebound or rigidity, no peritoneal signs. Patient has a colostomy and has brown stool in the colostomy bag. Extremities-intact ?4, normal range of motion, normal pulses, atraumatic] Test Results: [EKG obtained on arrival showed a sinus rhythm with a ventricular rate of [address] changes noted in the lateral leads. When compared with prior EKG from February 11, 2020 no significant changes are noted. CBC with differential white count 10.9, hemoglobin 7.4, hematocrit 25.4 and platelets 313. Chemistries unremarkable. BUN was 20 [place] 9 4. Troponin was 0.028. BNP was elevated at 542. Chest x-ray obtained interpreted by myself as increased markings in both lung bases with some pulmonary congestion noted. Radiology in agreement. COVID-19 test ordered and was negative.] Emergency Department Course and Treatment: [IV line established on arrival. Patient was given a DuoNeb aerosol. Patient was started on Solu-Medrol 60 mg IV.] Treatment Plan: [Admit] Disposition: [Admit] Impression: [Dyspnea COPD exacerbation Anemia CHF] This note was generated with [employer] dictation software. It may contain incorrect words, spelling, and punctuation that were not noted in review of the chart prior to signing ED Disposition - Plan for ED Patient: Referrals: Vicente Raya III, MD [Primary Care Provider] -
[2020-02-25] MEDS: Ipratropium/Albuterol Sulfate 3 ML AMPUL.NEB INHALATION ×2 (14:38→19:38)
--- NOTE | 2020-02-25 14:50 | RAD_ITS ---
STUDY: X-RAY CHEST REASON FOR EXAM: Female, 79 years old. SOB FOR OVER A MONTH, DX PNEUMONIA A MONTH AGO -- HX OF HTN, CHF, ASTHMA, COPD TECHNIQUE: Single AP portable view of the chest. COMPARISON: Comparison is made with prior study dated 02/11/2020. FINDINGS: EKG electrodes are seen. Stable mild increased markings at the lung bases. There is evidence of vascular distribution. Findings are suggestive of mild degree of CHF. There is no demonstrated pleural abnormality. Normal size heart. Normal mediastinum and chloe. Normal visualized pulmonary arteries. There is atherosclerotic calcification of the aortic arch with tortuosity. There are diffuse degenerative changes of the visualized thoracic spine. Normal visualized ribs, clavicles, and shoulders. There is no demonstrated abnormality of the visualized soft tissue structures of the upper abdomen. RAD/Chest 1 View (Portable) IMPRESSION: Findings suggestive of mild degree of CHF. Electronically Signed: Emanuel Ventura, at 15:22 EST , Service support ,
[2020-02-25 16:05] LABS: Absolute Lymphocyte Count 1.22 X10^3/uL (0.83-4.51); Absolute Neutrophil Count 8.5 X10^3/uL (2.0-7.7); Basophil# 0.05 X10^3/uL; Basophil% 0.5 % (0-1); Eosinophil# 0.17 X10^3/uL; Eosinophils% 1.6 % (0-5); Hematocrit 25.4 % (37-47); Hemoglobin 7.4 g/dL (12.0-15.0); Lymphocyte # 1.22 X10^3/ul (4.0); Lymphocyte % 11.2 % (19-41); Mean Corp Hgb Conc 29.1 g/dL (32-36); Mean Corpuscular Hgb 24.7 pg (27.0-32.0); Mean Corpuscular Volume 84.9 fL (81-99); Mean Platelet Vol. 8.8 fl (6.2-12.0); Monocyte# 0.86 X10^3/uL; Monocyte% 7.9 % (0-10); NRBC Flagged by Analyzer 0 % (0-5); Neutrophil # 8.54 X10^3/uL (2.7-7.7); Neutrophil % 78.2 % (47-70); Platelet Count 313 K/mm3 (150-450); RBC Distribution Width CV 16.2 % (11.6-14.6); RBC Distribution Width SD 50.4 fl (35.1-43.9); Red Blood Count 2.99 M/mm3 (4.2-5.4); White Blood Count 10.9 K/mm3 (4.4-11.0)
[2020-02-25 16:16] LABS: Anion Gap 3 (5-15); BUN 20 mg/dL (7-18); BUN/Creat Ratio 21.2 RATIO (10-20); Calcium,Total 8.3 mg/dL (8.5-10.1); Chloride 110 mmol/L (98-107); Creatinine, Serum 0.94 mg/dL (0.55-1.02); EST Glomerular Filtration Rate 61 mL/min (>60); Est Glom Filt Rate - Afr Amer 74 mL/min (>60); Estimated Creatinine Clearance 39.01 ml/min; Glucose 92 mg/dL (74-106); Potassium 4.3 mmol/L (3.5-5.1); Sodium Level 141 mmol/L (136-145)
[2020-02-25 16:17] LABS: Probe Check PASS; Specimen Processing Control PASS
[2020-02-25 16:24] LABS: Lactic Acid 0.8 mmol/L (0.4-1.9)
[2020-02-25 16:29] LABS: BNP,B-Type NATRIURETIC PEPTIDE 542.9 pg/mL (0-100)
[2020-02-25] MEDS: MethylPREDNISolone 125 MG/2 ML Vial 60 MG IV (16:55)
--- NOTE | 2020-02-25 17:34 | PCM.HP.STD ---
Problem List (1) CHF (congestive heart failure) Status: Acute Qualifiers: Heart failure type: diastolic (2) Anemia Status: Acute (3) CAD (coronary artery disease) Status: Chronic (4) Morbid obesity Status: Chronic (5) COPD (chronic obstructive pulmonary disease) Status: Chronic (6) Diabetes Status: Chronic Qualifiers: Diabetes mellitus type: type 2 (7) Chronic respiratory failure with hypoxia Status: Chronic (8) History of coronary artery stent placement Status: Chronic Comment: PBC-MJE-Bdzlgx RCA 2000 and 2002; FEC-HEG-Nmxl RCA 03/22/13; PCI-MUSHTAQ-Mid RCA w/ 3.5 x 12 mm Promus Synergy Stent 12/22/2017; WWU-XGQ-Fmaoyc LAD w/ 2.25 X 24 mm Promus Synergy and MUSHTAQ- Prox LAD w/ 3.5 X 24 mm Promus Synergy 01/20/2018; HFN-Wywpkpubycag-NAY-Mid RCA w/ 3.5 x 20 mm and 3.5 x 8 mm Synergy Stents 12/11/2019 (9) Stenosis of right carotid artery Status: Chronic Comment: RCEA 07/2014 (10) 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 This has been an ongoing issue for several weeks. She was treated for pna with levaquin and had temporarily some small improvement in her SOB, however she has significantly worsened over the past four days. She is severely SOB with exertion even just transferring from the toilet back to bed. She has had 30 lb weight gain over about 2 months. She has LE edema. She has severe orthopnea, and cannot sleep at night due to SOB and RLS. She took a water pill (she is not exactly sure what) last night and did temporarily feel better. Further more she is anemic, and has had intermittent blood in her ostomy (present due to hernia). On presentation today she had hypoxia on room air.[] Past Medical History Past Medical History (Chronic Problems): Chronic Problems (Last Reviewed 01/25/20 @ 15:59 by Marisela Barry PA, PA) CAD (coronary artery disease) (Chronic) Morbid obesity (Chronic) COPD (chronic obstructive pulmonary disease) (Chronic) Diabetes (Chronic) Chronic respiratory failure with hypoxia (Chronic) JESSICA (obstructive sleep apnea) (Chronic) Atherosclerosis of coronary artery of [place] heart without angina pectoris (Chronic) History of coronary artery stent placement (Chronic 12/11/19) ZTW-DYG-Nnkrry RCA 2000 and 2002; KOE-SBO-Xvfo RCA 03/22/13; PCI-MUSHTAQ-Mid RCA w/ 3.5 x 12 mm Promus Synergy Stent 12/22/2017; JUM-PEE-Atzmmp LAD w/ 2.25 X 24 mm Promus Synergy and MUSHTAQ- Prox LAD w/ 3.5 X 24 mm Promus Synergy 01/20/2018; KCJ-Xiphssbuckur-HDR-Mid RCA w/ 3.5 x 20 mm and 3.5 x 8 mm Synergy Stents 12/11/2019 Stenosis of right carotid artery (Chronic) RCEA 07/2014 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) stent the left subclavian with a 7 x 39 Poonam Essential (primary) hypertension (Chronic) Hyperlipidemia (Chronic) Nicotine dependence (Chronic) Medical History: Medical History (Last Reviewed 01/25/20 @ 15:59 by Marisela QUIJANO, PA) Atherosclerosis of coronary artery of [place] heart without angina pectoris (Chronic) I25.10 Stenosis of right carotid artery (Chronic) I65.21 RCEA 07/2014 Stenosis of left subclavian artery (Chronic) Onset Date: 03/2017 I77.1 stent the left subclavian with a 7 x 39 Poonam Essential (primary) hypertension (Chronic) I10 Hyperlipidemia (Chronic) E78.5 Nicotine dependence (Chronic) F17.200 Asthma J45.909 Carotid artery stenosis I65.29 Chronic hypoxemic respiratory failure J96.11 History of diabetes mellitus, type II Z86.39 History of gastroesophageal reflux (GERD) Z87.19 Obesities, morbid E66.01 Obstructive sleep apnea G47.33 Stage 2 moderate COPD by GOLD classification J44.9 Tobacco abuse Z72.0 VBI (vertebrobasilar insufficiency) G45.0 Allergies aspirin [ASA] Allergy (Severe, Verified 02/25/20 13:55) Hives bupropion [From Wellbutrin] Allergy (Verified 02/25/20 13:55) Unknown codeine Allergy (Verified 02/25/20 13:55) Hives meperidine HCl [From Demerol] Allergy (Verified 02/25/20 13:55) Hives naproxen sodium [From Anaprox] Allergy (Verified 02/25/20 13:55) Hives propoxyphene HCl [From Darvon] Allergy (Verified 02/25/20 13:55) Hives Sulfa (Sulfonamide Antibiotics) Allergy (Verified 02/25/20 13:55) hives, trouble breathing gabapentin Adverse Reaction (Intermediate, Verified 02/25/20 13:55) Mental status change, foggy headed NSAIDS (Non-Steroidal Anti-Inflamma Adverse Reaction (Verified 02/25/20 13:55) Hives Home Medications: Ambulatory Orders Medication Instructions Recorded Citalopram [Celexa] 20 mg PO DAILY 02/28/13 Montelukast [Singulair] 10 mg PO QHS PRN 07/08/14 Albuterol IH (ProAir) [Proair Hfa] 2 puff INHALATION Q6H PRN PRN 07/15/14 pramipexole 1 mg tablet 1 mg PO QHS PRN tab 02/14/18 Atorvastatin Calcium [Lipitor] 40 mg PO QHS 08/17/18 Beclomethasone Diprop Inhaler 1 puff INHALATION BID 08/17/18 [Qvar 80 Mcg Inhaler] Omeprazole 40 mg PO DAILY 08/17/18 Loperamide [Imodium] 4 mg PO 4X/DAY 11/14/18 Oxygen, Home [Home Oxygen] 2 lpm NASAL QHS 12/02/19 metoprolol succinate 25 mg 12.5 mg PO DAILY tab 12/06/19 tablet,extended release 24 hr clopidogrel 75 mg tablet 75 mg PO DAILY #30 tab 01/15/20 midodrine 5 mg tablet 5 mg PO Q8H tab 01/25/20 oxybutynin chloride 10 mg 10 mg PO DAILY 01/25/20 tablet,extended release 24 hr Albuterol Aerosols [Ventolin 2.5 mg INHALATION TID 02/11/20 Aerosols] nitroglycerin 0.4 mg sublingual 0.4 mg SUBLINGUAL Q5M PRN #25 tab 02/11/20 tablet Levofloxacin [Levaquin] 750 mg PO DAILY #7 tab 02/12/20 Surgical History: Surgical History (Last Reviewed 01/25/20 @ 15:59 by Marisela Barry PA, PA) History of coronary artery stent placement (Chronic) Onset Date: 12/11/19 Z95.5 RUJ-TFG-Gqgnew RCA 2000 and 2002; MQI-NZO-Ydte RCA 03/22/13; PCI-MUSHTAQ-Mid RCA w/ 3.5 x 12 mm Promus Synergy Stent 12/22/2017; GSB-STY-Rlumee LAD w/ 2.25 X 24 mm Promus Synergy and MUSHTAQ- Prox LAD w/ 3.5 X 24 mm Promus Synergy 01/20/2018; AWM-Xepoturgvfvk-AOH-Mid RCA w/ 3.5 x 20 mm and 3.5 x 8 mm Synergy Stents 12/11/2019 History of right knee joint replacement Z96.651 History of section Z98.891 History of cholecystectomy Z98.890, Z90.49 History of right-sided carotid endarterectomy Onset Date: 07/2014 Z98.890 left subclavian artery stent Onset Date: 03/2017 H/O bariatric surgery (Inactive) Z98.84 Surgical History: angioplasty Psychiatric History: No pertinent psych hx [employer] History: No pertinent [employer] history Smoking Status: Current every day smoker Tobacco Use: Cigarettes Alcohol: Occasional Drugs: None - *Family History Maternal Family History: Family History (Last Reviewed 02/25/20 @ 17:40 by Saul QUIJANO, PA) Mother CVA (cerebral vascular accident) Father Asthma Hypertension High blood cholesterol level Arthritis History Items: Stroke Review of Systems Constitutional: Denies: Chills, Fever, Weight Change HEENT: Denies: Head Aches, Sinus Congestion, Sinus Drainage Cardiovascular: Reports: Edema, Heaviness, Orthopnea, Paroxysmal Noc. Dyspnea. Denies: Chest Pain, Light Headedness, Palpitations, Syncope Respiratory: Reports: Cough, Shortness of Breath, Shortness of breath at rest, Shortness of breath upon exertion. Denies: Sputum production Gastrointestinal: Denies: Abdominal Pain, Dyspepsia, Nausea, Vomiting Genitourinary: Denies: Dysuria, Hesitancy, Urgency Musculoskeletal: Denies: Joint Pain, Joint Tenderness, Muscle pain Skin: Denies: Lesions, Rash, Wounds Neurological: Denies: Numbness, Tingling, Focal weakness Psychiatric: Denies: Anxiety, Depression, Homicidal Ideations, Suicidal Ideations Hematologic/ Lymphatic: Denies: Easy Bruising, Easy Bleeding VTE Information - Inpt Only VTE Present on Admission: No VTE Mechan Device Prophylaxis: None - Physical Exam Vitals/I&O's: Vital Signs Temp Pulse Resp BP Pulse Ox 98.7 F 72 22 H 134/76 H 96 02/25/20 17:27 02/25/20 17:27 02/25/20 17:27 02/25/20 17:27 02/25/20 17:27 Oxygen Flow Rate (L/min) 2 Oxygen Delivery Method Nasal Cannula Weight: 240 lb 4.862 oz Body Mass Index (BMI) 43.9 Finger Stick Blood Glucose 88 General: Alert, Oriented x3, Cooperative HEENT: Atraumatic, PERRLA, EOMI, Normocephalic Neck: Supple, No JVD, Negative Carotid Bruits Lungs: Diminished, Rales - faint, at bases Cardiovascular: Regular rate, No murmurs Abdomen: Bowel Sounds Present, Soft, Non Tender, Obese Extremities: Capillary Refill Less than 3 Seconds, Edema - 2+ pitting edema BLE Skin: No rashes, No breakdown Musculoskeletal: No Tenderness to Palpation of Joints or Extremities Neurological: Cranial nerves II-XII grossly intact Psych/Mental Status: Normal Affect, Appropriate, Alert and oriented to time, place, person, mood and affect Laboratory Results 02/25/20 14:30: COVID-19 (AARON) Negative 02/25/20 15:34: WBC 10.9, RBC 2.99 L, Hgb 7.4 L, Hct 25.4 L, MCV 84.9, MCH 24.7 L, MCHC 29.1 L, RDW Std Deviation 50.4 H, RDW Coeff of Abiola 16.2 H, Plt Count 313, MPV 8.8, Immature Gran % (Auto) 0.600, Neut % (Auto) 78.2 H, Lymph % (Auto) 11.2 L, Dawson % (Auto) 7.9, Eos % (Auto) 1.6, Baso % (Auto) 0.5, Absolute Neuts (auto) 8.5 H, Absolute Lymphs (auto) 1.22, Nucleated RBC % 0 02/25/20 15:34: Sodium 141, Potassium 4.3, Chloride 110 H, Carbon Dioxide 28.0, Anion Gap 3 L, BUN 20 H, Creatinine 0.94, Estim Creat Clear Calc 39.01, Est GFR (MDRD) Af Amer 74, Est GFR (MDRD) Non-Af 61, BUN/Creatinine Ratio 21.2 H, Glucose 92, Calcium 8.3 L, Troponin I 0.028 02/25/20 15:34: B-Natriuretic Peptide 542.9 H 02/25/20 15:47: Lactic Acid 0.8 Current Medications Sodium Chloride () 1,000 mls @ 150 mls/hr IV .Q6H40M ONE Stop: 02/25/20 20:43 Assessment/Plan All Active Problems (Last Reviewed 01/25/20 @ 15:59 by Marisela Barry PA, PA) CHF (congestive heart failure) (Acute) Anemia (Acute) Influenza A (Resolved) 1. Acute hypoxic resp insufficiency 2/2 chronic diastolic CHF - + orthopnea, PND, 30 lb weight gain. CXR c/w CHF. Elevated BNP. Improved with water pill last night. Start IV lasix. Last echo 07/2018 with preserved EF, cath 12/01 EF 55%. Will obtain repeat Echo. This is complicated by worsening anemia - she will be transfused with 1 unit prbc. Cycle enzymes and repeat AM EKG - she does have ongoing chest tightness. Check TSH. -Pt to start bipap tonight. 2. Normocytic anemia - acute on chronic - black stools intermittently. Normal Hgb in Nov, now Hgb 7.4. Transfuse 1 unit PRBC. Unfortunately with recent stent she will need to continue antiplatelets. Obtain stool for occult blood. Continue protonix, BID dosing. May need Gen surg referral. This is complicated by gastric bypass, and that she likely does not absorb iron well. 3. CAD - recent stent - 12/01. Continue plavix with caution (#2), statin, metoprolol 4. COPD - doubt exacerbation. Continue aerosols and incentive spirometer. Baseline O2 use is at night and prn. 5. JESSICA - bipap taken away due to noncompliance. She is willing to do bipap while here. 6. DMt2, morbid obesity - diet controlled since prior gastric bypass 7. Hernia - reducible. follows with the clinic. has ostomy - c/s wound nurse for ostomy care. DVT ppx: lovenox This patient was seen by Saul Tarango PA-C under the supervision of Dr. Alcazar.
--- NOTE | 2020-02-25 17:47 | ECHOCS_ITS ---
Reason For Study: Arrhythmia Procedure This was a 2D Doppler, Color Flow transthoracic echocardiogram. Technically difficult study due to patients body habitus. The study was technically difficult. Contrast injection was performed. Exam performed portable in patient room. Left Ventricle Normal LV size. Left ventricular systolic function is normal. The estimated ejection fraction is 65 %. No regional wall motion abnormalities noted. Right Ventricle Normal RV size. Normal systolic function. Atria The left atrium is mildly enlarged. Normal right atrium. No doppler evidence for ASD. Mitral Valve There is moderate mitral annular calcification. Extension of the mitral annular calcification on the base of posterior mitral valve leaflet. Mild-Moderate (1-2+) mitral valve insufficiency. Tricuspid Valve Normal tricuspid valve. Trivial tricuspid valve insufficiency. Unable to estimate RV systolic pressure/pulmonary artery pressure due to technically difficult study. Aortic Valve Trisinus/trileaflet aortic valve. Mild focal aortic valve calcification. Pulmonic Valve The pulmonic valve is not well visualized. Great Vessels Normal sized aortic root. Pericardium/Pleural No pericardial effusion. Medication Diluted definity 2ml given slow IV push to enhance endocardial definition. MMode/2D Measurements & Calculations LVIDd: 5.4 cm IVSd: 1.2 cm Ao root diam: 3.3 cm LVIDs: 3.5 cm LVPWd: 1.6 cm LA dimension: 5.1 cm FS: 35.3 % LAV(MOD-sp4): 82.2 ml LA A4 area: 25.1 cm2 Time Measurements MV dec time: 0.23 sec Doppler Measurements & Calculations MV E max vicente: 118.9 cm/sec Lat Peak E' Vicente: 7.4 cm/sec Med Peak E' Vicente: 7.2 cm/sec MV A max vicente: 90.6 cm/sec E/E' lat: 16.2 E/E' med: 16.6 MV E/A: 1.3 MV V2 max: 152.2 cm/sec MV P1/2t max vicente: 153.1 cm/sec Ao V2 max: 172.8 cm/sec MV max P.3 mmHg MV P1/2t: 63.2 msec Ao max P.9 mmHg MV V2 mean: 81.8 cm/sec MV dec slope: 709.3 cm/sec2 MV mean P.2 mmHg MV V2 VTI: 40.0 cm MVA(P1/2t): 3.5 cm2 LV V1 max: 74.0 cm/sec MR max vicente: 600.9 cm/sec PA V2 max: 95.3 cm/sec LV V1 max P.2 mmHg MR max P.4 mmHg MR mean vicente: 479.2 cm/sec MR mean P.6 mmHg MR VTI: 213.1 cm Interpretation Summary The study was technically difficult. Contrast injection was performed. Left ventricular systolic function is normal. The estimated ejection fraction is 65 %. The left atrium is mildly enlarged. There is moderate mitral annular calcification. Extension of the mitral annular calcification on the base of posterior mitral valve leaflet. Mild-Moderate (1-2+) mitral valve insufficiency. Trivial tricuspid valve insufficiency. Mild focal aortic valve calcification. Unable to estimate RV systolic pressure/pulmonary artery pressure due to technically difficult study. Transmitral diastolic flow velocities suggest diastolic dysfunction (pseudonormal pattern). Ordering Physician: Erendira Alcazar Referring Physician: ROSALINA Raya M.D. Performed By: Marciano Luis RCS
[2020-02-25] MEDS: Furosemide 40 MG/4 ML Vial IV (18:06)
[2020-02-25 18:11] LABS: Bedside Glucose 94 mg/dL (70-110)
[2020-02-25 18:23] LABS: Ferritin 15 ng/mL (8-252); Iron 15 ug/dL (50-170); Iron Binding Capacity,Total 487 ug/dL (250-450); Magnesium 2.1 mg/dL (1.6-2.6); PERCENT IRON SATURATION 3.1 % (15.0-55.0); Thyroid Stim Hormone (TSH) 0.56 uIU/mL (0.358-3.74)
[2020-02-25] MEDS: 0.9% Saline Lock 10 ML Syringe IV (18:46)
[2020-02-25 19:48] LABS: Hemoglobin A1c 5.7 % (3.8-5.6)
[2020-02-25] MEDS: Acetaminophen 325 MG Tablet 650 MG PO (21:29)
[2020-02-25] MEDS: Pramipexole Di-HCl 0.5 MG Tablet 1.5 MG PO (21:31)
[2020-02-25] MEDS: Pantoprazole Sodium 40 MG Tablet PO (21:31)
[2020-02-25 21:51] LABS: Bedside Glucose 144 mg/dL (70-110)
[2020-02-26] VITALS (17 sets, daily range): BP systolic 115–149; BP diastolic 53–102; PULSE 61–119; RESP 18–24; TEMP 35.8–37; O2SAT 95–98
[2020-02-26 03:34] LABS: Absolute Lymphocyte Count 0.46 X10^3/uL (0.83-4.51); Basophil# 0.02 X10^3/uL; Basophil% 0.3 % (0-1); Hematocrit 25.9 % (37-47); Hemoglobin 7.8 g/dL (12.0-15.0); Lymphocyte # 0.46 X10^3/ul (4.0); Lymphocyte % 6.9 % (19-41); Mean Corp Hgb Conc 30.1 g/dL (32-36); Mean Corpuscular Hgb 25.3 pg (27.0-32.0); Mean Corpuscular Volume 84.1 fL (81-99); Mean Platelet Vol. 8.6 fl (6.2-12.0); Monocyte# 0.14 X10^3/uL; Monocyte% 2.1 % (0-10); NRBC Flagged by Analyzer 0 % (0-5); Neutrophil # 5.98 X10^3/uL (2.7-7.7); Neutrophil % 90.1 % (47-70); POSITIVE DIFFERENTIAL YES; Platelet Count 271 K/mm3 (150-450); Red Blood Count 3.08 M/mm3 (4.2-5.4); White Blood Count 6.6 K/mm3 (4.4-11.0)
[2020-02-26 03:47] LABS: ALB/GLOB Ratio 0.6 RATIO (0.9-2.4); AST(SGOT) 20 U/L (15-37); Alanine Aminotransfer ALT/SGPT 24 U/L (13-56); Albumin, Serum 2.4 g/dL (3.2-5.0); Alkaline Phosphatase 108 U/L (45-117); Anion Gap 4 (5-15); BUN 24 mg/dL (7-18); BUN/Creat Ratio 20.7 RATIO (10-20); Calcium,Total 7.9 mg/dL (8.5-10.1); Chloride 108 mmol/L (98-107); Cholesterol 100 mg/dL (200); Creatinine, Serum 1.16 mg/dL (0.55-1.02); EST Glomerular Filtration Rate 48 mL/min (>60); Est Glom Filt Rate - Afr Amer 58 mL/min (>60); Estimated Creatinine Clearance 31.61 ml/min; Globulin 3.9 g/dL (2.2-4.2); Glucose 142 mg/dL (74-106); High Density Lipoprotein 59 mg/dL; Potassium 4.2 mmol/L (3.5-5.1); Protein, Total 6.3 g/dL (6.4-8.2); Sodium Level 141 mmol/L (136-145); Triglycerides 45 mg/dL; Very Low Density Lipoprotein 9 mg/dL (5-40)
[2020-02-26 04:07] LABS: Differential Indicated SCAN CRITERIA MET
--- NOTE | 2020-02-26 05:55 | EKG12_ITS ---
Test Reason : AM EKG Blood Pressure : / mmHG Vent. Rate : 056 BPM Atrial Rate : 056 BPM P-R Int : 212 ms QRS Dur : 088 ms QT Int : 444 ms P-R-T Axes : 061 068 150 degrees QTc Int : 428 ms Sinus bradycardia with 1st degree A-V block Septal infarct , age undetermined Abnormal ECG When compared with ECG of 25-FEB-2020 14:33, MANUAL COMPARISON REQUIRED, DATA IS UNCONFIRMED Confirmed by KALIN LEI, VIVEK ([id number]), rewrite editor TEE UGARTE ([id number]) on 03/03/2020 9:26:54 AM Referred By: BASHIR Confirmed By:EVI GAGNON MD
[2020-02-26] MEDS: 0.9% Saline Lock 10 ML Syringe IV ×6 (06:17→18:37)
[2020-02-26] MEDS: Ondansetron 4 MG/2 ML Vial IV ×2 (06:17→18:21)
[2020-02-26 07:00] LABS: Bedside Glucose 107 mg/dL (70-110)
--- NOTE | 2020-02-26 08:51 | CASEMGMT ---
According to the [facility] website, the following are in-network tertiary facilities: [facility], [place], [place], [facility], [facility], [facility], [place], and . Loan TIMMONS CM
[2020-02-26] MEDS: Pantoprazole Sodium 40 MG Tablet PO ×2 (09:02→22:39)
[2020-02-26] MEDS: Furosemide 40 MG/4 ML Vial IV ×2 (09:02→17:16)
[2020-02-26] MEDS: Acetaminophen 325 MG Tablet 650 MG PO (09:22)
[2020-02-26] MEDS: Sodium Ferric Gluconat 250 MG in 0.9% Normal Saline 250 ML 135 MG IV (10:41)
[2020-02-26] MEDS: Ipratropium/Albuterol Sulfate 3 ML AMPUL.NEB INHALATION (11:29)
--- NOTE | 2020-02-26 11:31 | PCM.CONS.GEN ---
Problem List (1) Anemia Status: Acute Reason for Consult Date of Consultation: 02/26/20 Reason for Consultation: Anemia. Melanotic stools. History of Present Illness: The patient is a 79 year old F who presented with a 1 day history of worsening shortness of breath. Patient has a significant medical history. She has noted intermittent darker stools within her stoma bag for the last 2 months. 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 Patient notes the hernia site was never repaired and she also has a parastomal hernia. She notes she has been seeing [facility] [place] for the hernias. She notes they don't want to operate for another 3-6 months secondary to COVID. Patient notes at home she has dry heaving episodes and she has been told to be aware of the pushing the hernia back into place when these symptoms occur. Patient has multiple cardiac stents placed with the most recent being in November of 2019. Patient is currently on Plavix as an outpatient. Patient also has a history of gastric bypass in her 60's. Patient continues to smoke. She has a history of COPD and is on 2L of oxygen at home. Patient notes it has been recommended to take an iron supplement, however patient is unable to tolerate the supplement so she does not take it. She had a recent upper and lower scope by Dr. Zuniga in April 2018 which was unremarkable. On admission patient's Hgb was 7.4. She has received 1 unit of PRBC. Hgb today is 7.8. Past Medical History Past Medical History (Chronic Problems): Chronic Problems (Last Reviewed 01/25/20 @ 15:59 by Marisela QUIJANO, PA) CAD (coronary artery disease) (Chronic) Morbid obesity (Chronic) COPD (chronic obstructive pulmonary disease) (Chronic) Diabetes (Chronic) Chronic respiratory failure with hypoxia (Chronic) JESSICA (obstructive sleep apnea) (Chronic) Atherosclerosis of coronary artery of [place] heart without angina pectoris (Chronic) History of coronary artery stent placement (Chronic 12/11/19) AAM-XID-Rptirp RCA 2000 and 2002; ONV-IHL-Bemx RCA 03/22/13; PCI-MUSHTAQ-Mid RCA w/ 3.5 x 12 mm Promus Synergy Stent 12/22/2017; BND-CIG-Pqxcmi LAD w/ 2.25 X 24 mm Promus Synergy and MUSHTAQ- Prox LAD w/ 3.5 X 24 mm Promus Synergy 01/20/2018; ZJH-Dvzlnhajrvha-JHB-Mid RCA w/ 3.5 x 20 mm and 3.5 x 8 mm Synergy Stents 12/11/2019 Stenosis of right carotid artery (Chronic) RCEA 07/2014 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) stent the left subclavian with a 7 x 39 [place] Essential (primary) hypertension (Chronic) Hyperlipidemia (Chronic) Nicotine dependence (Chronic) Medical History: Medical History (Last Reviewed 02/26/20 @ 15:11 by Deyanira QUIJANO, PANbaC) Atherosclerosis of coronary artery of [place] heart without angina pectoris (Chronic) I25.10 Stenosis of right carotid artery (Chronic) I65.21 RCEA 07/2014 Stenosis of left subclavian artery (Chronic) Onset Date: 03/2017 I77.1 stent the left subclavian with a 7 x 39 [place] Essential (primary) hypertension (Chronic) I10 Hyperlipidemia (Chronic) E78.5 Nicotine dependence (Chronic) F17.200 Asthma J45.909 Carotid artery stenosis I65.29 Chronic hypoxemic respiratory failure J96.11 History of diabetes mellitus, type II Z86.39 History of gastroesophageal reflux (GERD) Z87.19 Obesities, morbid E66.01 Obstructive sleep apnea G47.33 Stage 2 moderate COPD by GOLD classification J44.9 Tobacco abuse Z72.0 VBI (vertebrobasilar insufficiency) G45.0 Allergies aspirin [ASA] Allergy (Severe, Verified 02/25/20 13:55) Hives bupropion [From Wellbutrin] Allergy (Verified 02/25/20 13:55) Unknown codeine Allergy (Verified 02/25/20 13:55) Hives meperidine HCl [From Demerol] Allergy (Verified 02/25/20 13:55) Hives naproxen sodium [From Anaprox] Allergy (Verified 02/25/20 13:55) Hives propoxyphene HCl [From Darvon] Allergy (Verified 02/25/20 13:55) Hives Sulfa (Sulfonamide Antibiotics) Allergy (Verified 02/25/20 13:55) hives, trouble breathing gabapentin Adverse Reaction (Intermediate, Verified 02/25/20 13:55) Mental status change, foggy headed NSAIDS (Non-Steroidal Anti-Inflamma Adverse Reaction (Verified 02/25/20 13:55) Hives Home Medications: Ambulatory Orders Medication Instructions Recorded Citalopram [Celexa] 20 mg PO DAILY 02/28/13 Montelukast [Singulair] 10 mg PO QHS PRN 07/08/14 Albuterol IH (ProAir) [Proair Hfa] 2 puff INHALATION Q6H PRN PRN 07/15/14 Atorvastatin Calcium [Lipitor] 40 mg PO QHS 08/17/18 Omeprazole 40 mg PO DAILY 08/17/18 metoprolol succinate 25 mg 12.5 mg PO DAILY tab 12/06/19 tablet,extended release 24 hr midodrine 5 mg tablet 5 mg PO Q8H tab 01/25/20 oxybutynin chloride 10 mg 10 mg PO DAILY 01/25/20 tablet,extended release 24 hr Albuterol Aerosols [Ventolin 2.5 mg INHALATION TID 02/11/20 Aerosols] nitroglycerin 0.4 mg sublingual 0.4 mg SUBLINGUAL Q5M PRN #25 tab 02/11/20 tablet Clopidogrel Bisulfate [Clopidogrel] 75 mg PO DAILY 02/25/20 Hydroxyzine HCl 25 mg PO QHS 02/25/20 Pramipexole Di-HCl [Mirapex] 1.5 mg PO TID 02/25/20 Loperamide [Imodium] 2 mg PO Q4H PRN PRN 02/26/20 Surgical History: Surgical History (Last Reviewed 02/26/20 @ 15:11 by Deyanira QUIJANO PANbaC) History of coronary artery stent placement (Chronic) Onset Date: 12/11/19 Z95.5 HKL-GFW-Cilrdl RCA 2000 and 2002; ZIP-ZOO-Cper RCA 03/22/13; PCI-MUSHTAQ-Mid RCA w/ 3.5 x 12 mm Promus Synergy Stent 12/22/2017; KPM-XJP-Rmsrvx LAD w/ 2.25 X 24 mm Promus Synergy and MUSHTAQ- Prox LAD w/ 3.5 X 24 mm Promus Synergy 01/20/2018; SUT-Kgnbfmurxgxm-YYT-Mid RCA w/ 3.5 x 20 mm and 3.5 x 8 mm Synergy Stents 12/11/2019 History of right knee joint replacement Z96.651 History of section Z98.891 History of cholecystectomy Z98.890, Z90.49 History of right-sided carotid endarterectomy Onset Date: 07/2014 Z98.890 left subclavian artery stent Onset Date: 03/2017 H/O bariatric surgery (Inactive) Z98.84 Surgical History: angioplasty Psychiatric History: No pertinent psych hx 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 Smoking Status: Current every day smoker Tobacco Use: Cigarettes Alcohol: Occasional Drugs: None - *Family History Maternal Family History: Family History (Last Reviewed 02/26/20 @ 15:11 by Deyanira QUIJANO, PA-C) Mother CVA (cerebral vascular accident) Father Asthma Hypertension High blood cholesterol level Arthritis History Items: Stroke Review of Systems Constitutional: Reports: Anorexia, Weakness HEENT: Denies: Head Aches, Sinus Congestion, Sinus Drainage Cardiovascular: Denies: Chest Pain, Palpitations Respiratory: Reports: Cough, Shortness of Breath, Sputum production Gastrointestinal: Reports: Abdominal Pain, Nausea, Melena, Vomiting Genitourinary: Denies: Dysuria Musculoskeletal: Denies: Joint Pain, Joint Tenderness Skin: Reports: - - Stoma. Denies: Rash, Wounds Neurological: Reports: Balance problems Psychiatric: Reports: Anxiety Hematologic/ Lymphatic: Reports: Anemia, Hx of blood clot Patient Problems: Active and Suspected Problems (Last Reviewed 01/25/20 @ 15:59 by Marisela QUIJANO, PA) CHF (congestive heart failure) (Acute) Anemia (Acute) - Physical Exam Vitals/I&O's: Vital Signs Temp Pulse Resp BP Pulse Ox 98 F 90 24 H 149/74 H 98 02/26/20 08:56 02/26/20 11:30 02/26/20 11:30 02/26/20 08:56 02/26/20 11:30 Oxygen Flow Rate (L/min) 2 Oxygen Delivery Method Nasal Cannula Weight: 267 lb Body Mass Index (BMI) 43.4 Finger Stick Blood Glucose 88 Intake and Output for Last 24 Hours 02/24/20 02/25/20 02/26/20 23:59 23:59 23:59 Intake Total 120 / 120 630 / 630 Output Total 950 / 950 Balance 120 / -430 -320 / -320 General: Alert, Oriented x3, Cooperative, - - Dry heaving HEENT: Atraumatic, PERRLA, EOMI, Normocephalic Neck: Supple, No JVD, Negative Carotid Bruits Lungs: Rales, Wheezes Cardiovascular: Regular rate, No murmurs Abdomen: Soft, Obese, Tender - inferior to hernia, Hernia - large parastomal hernia noted, - - Ileostomy noted with brown liquidy stool Extremities: No edema, Capillary Refill Less than 3 Seconds Skin: No rashes, No breakdown Musculoskeletal: No Tenderness to Palpation of Joints or Extremities Neurological: Neuro grossly intact Psych/Mental Status: Normal Affect, Appropriate Microbiology Past 72 Hours 02/26/20 00:50 Mucosa - Nasopharyngeal Respiratory Panel (PCR) - Final 02/25/20 20:50 Stool Stool Occult Blood (JOSE) - Final Occult Blood Positive Laboratory Results 02/25/20 14:30: COVID-19 (AARON) Negative 02/25/20 15:34: WBC 10.9, RBC 2.99 L, Hgb 7.4 L, Hct 25.4 L, MCV 84.9, MCH 24.7 L, MCHC 29.1 L, RDW Std Deviation 50.4 H, RDW Coeff of Abiola 16.2 H, Plt Count 313, MPV 8.8, Immature Gran % (Auto) 0.600, Neut % (Auto) 78.2 H, Lymph % (Auto) 11.2 L, Faulk % (Auto) 7.9, Eos % (Auto) 1.6, Baso % (Auto) 0.5, Absolute Neuts (auto) 8.5 H, Absolute Lymphs (auto) 1.22, Nucleated RBC % 0 02/25/20 15:34: Sodium 141, Potassium 4.3, Chloride 110 H, Carbon Dioxide 28.0, Anion Gap 3 L, BUN 20 H, Creatinine 0.94, Estim Creat Clear Calc 39.01, Est GFR (MDRD) Af Amer 74, Est GFR (MDRD) Non-Af 61, BUN/Creatinine Ratio 21.2 H, Glucose 92, Calcium 8.3 L, Troponin I 0.028 02/25/20 15:34: B-Natriuretic Peptide 542.9 H 02/25/20 15:34: Magnesium 2.1, Iron 15 L, TIBC 487 H, Iron Saturation 3.1 L, Ferritin 15, TSH 0.56 02/25/20 15:47: Lactic Acid 0.8 02/25/20 18:01: POC Glucose 94 02/25/20 18:25: Troponin I 0.029 02/25/20 18:59: Hemoglobin A1c 5.7 H 02/25/20 18:59: Blood Type O POSITIVE, Antibody Screen NEGATIVE, Crossmatch See Detail 02/25/20 21:33: POC Glucose 144 H 02/25/20 22:05: Troponin I 0.016 02/26/20 03:14: WBC 6.6, RBC 3.08 L, Hgb 7.8 L, Hct 25.9 L, MCV 84.1, MCH 25.3 L, MCHC 30.1 L, RDW Std Deviation 49.0 H, RDW Coeff of Abiola 16.0 H, Plt Count 271, MPV 8.6, Immature Gran % (Auto) 0.600, Neut % (Auto) 90.1 H, Lymph % (Auto) 6.9 L, Faulk % (Auto) 2.1, Eos % (Auto) 0.0, Baso % (Auto) 0.3, Absolute Neuts (auto) 6.0, Absolute Lymphs (auto) 0.46 L, Nucleated RBC % 0 02/26/20 03:14: Sodium 141, Potassium 4.2, Chloride 108 H, Carbon Dioxide 29.0, Anion Gap 4 L, BUN 24 H, Creatinine 1.16 H, Estim Creat Clear Calc 31.61, Est GFR (MDRD) Af Amer 58 L, Est GFR (MDRD) Non-Af 48 L, BUN/Creatinine Ratio 20.7 H, Glucose 142 H, Calcium 7.9 L, Total Bilirubin 0.70, AST 20, ALT 24, Alkaline Phosphatase 108, Total Protein 6.3 L, Albumin 2.4 L, Globulin 3.9, Albumin/Globulin Ratio 0.6 L, Triglycerides 45, Cholesterol 100, LDL Cholesterol 32, VLDL Cholesterol 9, HDL Cholesterol 59 02/26/20 06:12: POC Glucose 107 Current Medications Acetaminophen (Acetaminophen 325 Mg Tablet) 650 mg PO Q6H PRN PRN PRN Reason: Pain Score 1-10/Temp > 100.7 F Last Admin: 02/26/20 09:22 Dose: 650 mg Documented by: Al Hydroxide/Mg Hydroxide (Mag Hydrox/Al Hydrox/Simeth 30 Ml Udc) 30 ml PO Q6H PRN PRN PRN Reason: Gastric Burning Albuterol Sulfate (Albuterol 2.5 Mg/3 Ml Vial.Neb.) 2.5 mg INHALATION Q2H PRN PRN PRN Reason: Dyspnea, wheezing Albuterol/Ipratropium (Ipratropium/Albuterol Sulfate 3 Ml Ampul.Neb) 3 ml INHALATION Q6HWA.RT RADHA Last Admin: 02/26/20 11:29 Dose: 3 ml Documented by: Dextrose (Dextrose 50%-Water 25 Gm/50 Ml Disp.Syrin) 0 gm IV X1 PRN; Protocol PRN Reason: Hypoglycemia Furosemide (Furosemide 40 Mg/4 Ml Vial) 40 mg IV BID@1000,1800 [facility] Last Admin: 02/26/20 09:02 Dose: 40 mg Documented by: Glucagon (Glucagon 1 Mg/Ml Syringe) 1 mg IM .X1 PRN PRN Reason: Hypoglycemia Guaifenesin (Guaifenesin 10 Ml Udc (200mg/10ml)) 20 ml PO Q4H PRN PRN PRN Reason: COUGH Hydralazine HCl (Hydralazine 20 Mg/Ml Vial) 10 mg IV Q4H PRN PRN PRN Reason: SBP > 160 Ferric Sodium Gluconate Complex 250 mg/ Sodium Chloride 270 mls @ 135 mls/hr IV DAILY [facility] Stop: 02/28/20 11:59 Last Admin: 02/26/20 10:41 Dose: 135 mls/hr Documented by: Insulin Human Lispro (Insulin Lispro 100 Unit/Ml Insuln.Pen) 0 unit SC ACHS [facility]; Protocol Last Admin: 02/26/20 06:17 Dose: Not Given Documented by: Magnesium Hydroxide (Magnesium Hydroxide 30 Ml Udc) 30 ml PO DAILY PRN PRN PRN Reason: Constipation Melatonin (Melatonin 3 Mg Tablet) 3 mg PO QHS PRN PRN PRN Reason: INSOMNIA Nitroglycerin (Nitroglycerin (Inpatient Use) 0.4 Mg Tab.Subl) 0.4 mg SUBLINGUAL Q5M PRN PRN Reason: CARDIAC/CHEST PAIN Ondansetron HCl (Ondansetron 4 Mg/2 Ml Vial) 4 mg IV Q8H PRN PRN PRN Reason: NAUSEA/VOMITING Last Admin: 02/26/20 06:17 Dose: 4 mg Documented by: Pantoprazole Sodium (Pantoprazole Sodium 40 Mg Tablet) 40 mg PO BID [facility] Last Admin: 02/26/20 09:02 Dose: 40 mg Documented by: Pramipexole Dihydrochloride (Pramipexole Di-Hcl 0.5 Mg Tablet) 1.5 mg PO TID [facility] Last Admin: 02/26/20 06:17 Dose: Not Given Documented by: Prochlorperazine Edisylate (Prochlorperazine 10 Mg/2 Ml Vial) 5 mg IV Q4H PRN PRN PRN Reason: Breakthrough Nausea/Vomiting Psyllium Hydrophilic Mucilloid (Psyllium 1 Packet) 1 packet PO DAILY PRN PRN PRN Reason: Constipation Senna/Docusate Sodium (Senna/Docusate Sodium 1 Tablet) 2 tablet PO BID PRN PRN PRN Reason: Constipation Sodium Chloride (0.9% Saline Lock 10 Ml Syringe) 10 - 40 ml IV UD PRN PRN Reason: SALINE FLUSH Last Admin: 02/26/20 09:02 Dose: 20 ml Documented by: Throat Lozenges (Benzocaine/Menthol 1 Lozenge) 1 lozenge MUCOUS MEM Q2H PRN PRN PRN Reason: SORE THROAT Assessment/Plan All Active Problems (Last Reviewed 01/25/20 @ 15:59 by Marisela QUIJANO, PA) CHF (congestive heart failure) (Acute) Anemia (Acute) Influenza A (Resolved) I have been consulted in conjunction with Dr. Roth. He will independently evaluate this patient. Impression: Acute on chronic anemia. Melanotic stools. Plan: I have discussed this patient with Dr. Roth. Dr. Roth will plan to perform an esophagogastroduodenoscopy with possible biopsies possible cessation of bleeding. Procedure details, risks and benefits have been explained to the patient. Patient has had the opportunity to ask and have questions answered. Patient verbally understands and agrees to proceed with the proposed procedure. Thank you for allowing us to participate in this patient's care. Office Visits / Consults: [id number] IP Consult L3
[2020-02-26 12:10] LABS: Bedside Glucose 98 mg/dL (70-110)
--- NOTE | 2020-02-26 12:22 | CASEMGMT ---
Assessment- SW met with patient to complete assessment. SW also confirmed addresses and phone numbers Living situation- Patient lives with her in an efficiency apartment attached to her daughter's home. She has no entry steps. PCP: Dr Vicente Raya [facility]: [facility]: Shower chair, walker, rollator, cane, bedside commode, grab bars, and O2 from [facility]. Per Annette with [facility] her prescription is for 2L continuous. ADL's/IADL's: Patient states she is independent in all of her activities. 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 Past SNF/rehab: She has been to [facility] in the past Past HH: She has had [facility] in the past LW: She has and is aware it is not on file at [facility]. POA: She has and is aware it is not on file at [facility]. Her , Geovanny is her POA, and then her daughter, Missy is the first alternate. Plan: Patient plans on returning home at discharge. FADY and RN CM will follow and assist with d/c planning. Laney SIMS RESULTS ENGINEER
--- NOTE | 2020-02-26 12:44 | PCM.PN.HOSP ---
<Saul Tarango - Last Filed: 02/26/20 12:44> Patient Problems: Active and Suspected Problems (Last Reviewed 01/25/20 @ 15:59 by Marisela QUIJANO, PA) CHF (congestive heart failure) (Acute) Anemia (Acute) Reason for Visit: CHF exacerbation Subjective: SOB improved. LE edema improved. Intermittent nonproductive cough. No fever/chills. Pt planning to have EGD tomorrow. Vitals/I&O's: Vital Signs Temp Pulse Resp BP Pulse Ox 98 F 90 24 H 149/74 H 98 02/26/20 08:56 02/26/20 11:30 02/26/20 11:30 02/26/20 08:56 02/26/20 11:30 Oxygen Flow Rate (L/min) 2 Oxygen Delivery Method Nasal Cannula Weight: 267 lb Body Mass Index (BMI) 43.4 Finger Stick Blood Glucose 88 Intake and Output for Last 24 Hours 02/24/20 02/25/20 02/26/20 23:59 23:59 23:59 Intake Total 120 / 120 630 / 630 Output Total 950 / 950 Balance 120 / -430 -320 / -320 General: Alert, Oriented x3, Cooperative HEENT: Atraumatic, PERRLA, EOMI, Normocephalic Neck: Supple, No JVD, Negative Carotid Bruits Lungs: Diminished, Rales, Wheezes Cardiovascular: Regular rate, No murmurs Abdomen: Bowel Sounds Present, Soft, Non Tender, Obese Extremities: No edema, Capillary Refill Less than 3 Seconds Skin: No rashes, No breakdown Musculoskeletal: No Tenderness to Palpation of Joints or Extremities Neurological: Cranial nerves II-XII grossly intact Psych/Mental Status: Normal Affect, Appropriate, Alert and oriented to time, place, person, mood and affect Microbiology Past 72 Hours 02/26/20 00:50 Mucosa - Nasopharyngeal Respiratory Panel (PCR) - Final 02/25/20 20:50 Stool Stool Occult Blood (JOSE) - Final Occult Blood Positive Laboratory Results 02/25/20 14:30: COVID-19 (AARON) Negative 02/25/20 15:34: WBC 10.9, RBC 2.99 L, Hgb 7.4 L, Hct 25.4 L, MCV 84.9, MCH 24.7 L, MCHC 29.1 L, RDW Std Deviation 50.4 H, RDW Coeff of Abiola 16.2 H, Plt Count 313, MPV 8.8, Immature Gran % (Auto) 0.600, Neut % (Auto) 78.2 H, Lymph % (Auto) 11.2 L, [place] % (Auto) 7.9, Eos % (Auto) 1.6, Baso % (Auto) 0.5, Absolute Neuts (auto) 8.5 H, Absolute Lymphs (auto) 1.22, Nucleated RBC % 0 02/25/20 15:34: Sodium 141, Potassium 4.3, Chloride 110 H, Carbon Dioxide 28.0, Anion Gap 3 L, BUN 20 H, Creatinine 0.94, Estim Creat Clear Calc 39.01, Est GFR (MDRD) Af Amer 74, Est GFR (MDRD) Non-Af 61, BUN/Creatinine Ratio 21.2 H, Glucose 92, Calcium 8.3 L, Troponin I 0.028 02/25/20 15:34: B-Natriuretic Peptide 542.9 H 02/25/20 15:34: Magnesium 2.1, Iron 15 L, TIBC 487 H, Iron Saturation 3.1 L, Ferritin 15, TSH 0.56 02/25/20 15:47: Lactic Acid 0.8 02/25/20 18:01: POC Glucose 94 02/25/20 18:25: Troponin I 0.029 02/25/20 18:59: Hemoglobin A1c 5.7 H 02/25/20 18:59: Blood Type O POSITIVE, Antibody Screen NEGATIVE, Crossmatch See Detail 02/25/20 21:33: POC Glucose 144 H 02/25/20 22:05: Troponin I 0.016 02/26/20 03:14: WBC 6.6, RBC 3.08 L, Hgb 7.8 L, Hct 25.9 L, MCV 84.1, MCH 25.3 L, MCHC 30.1 L, RDW Std Deviation 49.0 H, RDW Coeff of Abiola 16.0 H, Plt Count 271, MPV 8.6, Immature Gran % (Auto) 0.600, Neut % (Auto) 90.1 H, Lymph % (Auto) 6.9 L, [place] % (Auto) 2.1, Eos % (Auto) 0.0, Baso % (Auto) 0.3, Absolute Neuts (auto) 6.0, Absolute Lymphs (auto) 0.46 L, Nucleated RBC % 0 02/26/20 03:14: Sodium 141, Potassium 4.2, Chloride 108 H, Carbon Dioxide 29.0, Anion Gap 4 L, BUN 24 H, Creatinine 1.16 H, Estim Creat Clear Calc 31.61, Est GFR (MDRD) Af Amer 58 L, Est GFR (MDRD) Non-Af 48 L, BUN/Creatinine Ratio 20.7 H, Glucose 142 H, Calcium 7.9 L, Total Bilirubin 0.70, AST 20, ALT 24, Alkaline Phosphatase 108, Total Protein 6.3 L, Albumin 2.4 L, Globulin 3.9, Albumin/Globulin Ratio 0.6 L, Triglycerides 45, Cholesterol 100, LDL Cholesterol 32, VLDL Cholesterol 9, HDL Cholesterol 59 02/26/20 06:12: POC Glucose 107 02/26/20 12:02: POC Glucose 98 Current Medications Acetaminophen (Acetaminophen 325 Mg Tablet) 650 mg PO Q6H PRN PRN PRN Reason: Pain Score 1-10/Temp > 100.7 F Last Admin: 02/26/20 09:22 Dose: 650 mg Documented by: Al Hydroxide/Mg Hydroxide (Mag Hydrox/Al Hydrox/Simeth 30 Ml Udc) 30 ml PO Q6H PRN PRN PRN Reason: Gastric Burning Albuterol Sulfate (Albuterol 2.5 Mg/3 Ml Vial.Neb.) 2.5 mg INHALATION Q2H PRN PRN PRN Reason: Dyspnea, wheezing Albuterol/Ipratropium (Ipratropium/Albuterol Sulfate 3 Ml Ampul.Neb) 3 ml INHALATION Q6HWA.RT [facility] Last Admin: 02/26/20 11:29 Dose: 3 ml Documented by: Atorvastatin Calcium (Atorvastatin Calcium 40 Mg Tablet) 40 mg PO QHS RADHA Citalopram Hydrobromide (Citalopram 20 Mg Tablet) 20 mg PO DAILY [facility] Clopidogrel Bisulfate (Clopidogrel Bisulfate 75 Mg Tablet) 75 mg PO DAILY [facility] Dextrose (Dextrose 50%-Water 25 Gm/50 Ml Disp.Syrin) 0 gm IV X1 PRN; Protocol PRN Reason: Hypoglycemia Furosemide (Furosemide 40 Mg/4 Ml Vial) 40 mg IV BID@1000,1800 [facility] Last Admin: 02/26/20 09:02 Dose: 40 mg Documented by: Glucagon (Glucagon 1 Mg/Ml Syringe) 1 mg IM .X1 PRN PRN Reason: Hypoglycemia Guaifenesin (Guaifenesin 10 Ml Udc (200mg/10ml)) 20 ml PO Q4H PRN PRN PRN Reason: COUGH Hydralazine HCl (Hydralazine 20 Mg/Ml Vial) 10 mg IV Q4H PRN PRN PRN Reason: SBP > 160 Ferric Sodium Gluconate Complex 250 mg/ Sodium Chloride 270 mls @ 135 mls/hr IV DAILY [facility] Stop: 02/28/20 11:59 Last Admin: 02/26/20 10:41 Dose: 135 mls/hr Documented by: Insulin Human Lispro (Insulin Lispro 100 Unit/Ml Insuln.Pen) 0 unit SC [facility]; Protocol Last Admin: 02/26/20 06:17 Dose: Not Given Documented by: Loperamide HCl (Loperamide 2 Mg Capsule) 2 mg PO Q4H PRN PRN PRN Reason: Diarrhea Magnesium Hydroxide (Magnesium Hydroxide 30 Ml Udc) 30 ml PO DAILY PRN PRN PRN Reason: Constipation Melatonin (Melatonin 3 Mg Tablet) 3 mg PO QHS PRN PRN PRN Reason: INSOMNIA Metoprolol Succinate (Metoprolol(Xl)Succ 25 Mg Tablet) 12.5 mg PO DAILY [facility] Midodrine (Midodrine Hcl 5 Mg Tablet) 5 mg PO Q8 RADHA Montelukast Sodium (Montelukast 10 Mg Tablet) 10 mg PO QHS PRN PRN Reason: ALLERGIES Nitroglycerin (Nitroglycerin (Inpatient Use) 0.4 Mg Tab.Subl) 0.4 mg SUBLINGUAL Q5M PRN PRN Reason: CARDIAC/CHEST PAIN Ondansetron HCl (Ondansetron 4 Mg/2 Ml Vial) 4 mg IV Q8H PRN PRN PRN Reason: NAUSEA/VOMITING Last Admin: 02/26/20 06:17 Dose: 4 mg Documented by: Pantoprazole Sodium (Pantoprazole Sodium 40 Mg Tablet) 40 mg PO BID [facility] Last Admin: 02/26/20 09:02 Dose: 40 mg Documented by: Pramipexole Dihydrochloride (Pramipexole Di-Hcl 0.5 Mg Tablet) 1.5 mg PO TID [facility] Last Admin: 02/26/20 06:17 Dose: Not Given Documented by: Prochlorperazine Edisylate (Prochlorperazine 10 Mg/2 Ml Vial) 5 mg IV Q4H PRN PRN PRN Reason: Breakthrough Nausea/Vomiting Psyllium Hydrophilic Mucilloid (Psyllium 1 Packet) 1 packet PO DAILY PRN PRN PRN Reason: Constipation Senna/Docusate Sodium (Senna/Docusate Sodium 1 Tablet) 2 tablet PO BID PRN PRN PRN Reason: Constipation Sodium Chloride (0.9% Saline Lock 10 Ml Syringe) 10 - 40 ml IV UD PRN PRN Reason: SALINE FLUSH Last Admin: 02/26/20 09:02 Dose: 20 ml Documented by: Throat Lozenges (Benzocaine/Menthol 1 Lozenge) 1 lozenge MUCOUS MEM Q2H PRN PRN PRN Reason: SORE THROAT Tolterodine Tartrate (Tolterodine Tartrate 2 Mg Cap.Sa) 2 mg PO DAILY RADHA STROKE Vital Signs/Narrative: Vital Signs Temp Pulse Resp BP Pulse Ox 02/26/20 11:30 90 24 H 98 02/26/20 10:53 74 02/26/20 08:56 98 F 84 18 149/74 H 96 Medical Necessity - Tobacco Use Smoking Status: Current every day smoker Tobacco Use: Cigarettes Assessment/Plan All Active Problems (Last Reviewed 01/25/20 @ 15:59 by Marisela Barry PA, PA) CHF (congestive heart failure) (Acute) Anemia (Acute) Influenza A (Resolved) 1. Acute hypoxic resp insufficiency 2/2 chronic diastolic CHF - improved. continue lasix. Echo shows EF 65%, 1-2+ MVI, diastolic dysfunction, unable to estimate RV pressure. Trop neg x3. 2. Normocytic anemia - acute on chronic - suspected upper GI bleed. continue PPI BID. only moderate improvement in Hgb with 1 unit PRBC. iron studies c/w deficiency - venofer initiated. Gen surgery consulted. EGD tomorrow. 3. CAD - recent stent - 12/01. Continue plavix with caution (#2), statin, metoprolol 4. COPD - doubt exacerbation. Continue aerosols and incentive spirometer. Baseline O2 use is at night and prn. 5. JESSICA - bipap taken away due to noncompliance. She is willing to do bipap while here. 6. DMt2, morbid obesity - diet controlled since prior gastric bypass. A1C 5.7% 7. Hernia - reducible. follows with the clinic. has ostomy - c/s wound nurse for ostomy care. 8. RLS - mirapex 9. Ongoing nicotine abuse - pt reduced smoking from 2 ppd to 5 cig/day. DVT ppx: lovenox This patient was seen by Saul Tarango PA-C under the supervision of Dr. Holbrook <Casey Holbrook - Last Filed: 02/26/20 13:32> Vitals/I&O's: Vital Signs Temp Pulse Resp BP Pulse Ox 98 F 90 24 H 149/74 H 98 02/26/20 08:56 02/26/20 11:30 02/26/20 11:30 02/26/20 08:56 02/26/20 11:30 Oxygen Flow Rate (L/min) 2 Oxygen Delivery Method Nasal Cannula Weight: 121.109 kg Body Mass Index (BMI) 43.4 Finger Stick Blood Glucose 88 Intake and Output for Last 24 Hours 02/24/20 02/25/20 02/26/20 23:59 23:59 23:59 Intake Total 120 / 120 630 / 630 Output Total 950 / 950 Balance 120 / -430 -320 / -320 Microbiology Past 72 Hours 02/26/20 00:50 Mucosa - Nasopharyngeal Respiratory Panel (PCR) - Final 02/25/20 20:50 Stool Stool Occult Blood (JOSE) - Final Occult Blood Positive Laboratory Results 02/25/20 14:30: COVID-19 (AARON) Negative 02/25/20 15:34: WBC 10.9, RBC 2.99 L, Hgb 7.4 L, Hct 25.4 L, MCV 84.9, MCH 24.7 L, MCHC 29.1 L, RDW Std Deviation 50.4 H, RDW Coeff of Abiola 16.2 H, Plt Count 313, MPV 8.8, Immature Gran % (Auto) 0.600, Neut % (Auto) 78.2 H, Lymph % (Auto) 11.2 L, [place] % (Auto) 7.9, Eos % (Auto) 1.6, Baso % (Auto) 0.5, Absolute Neuts (auto) 8.5 H, Absolute Lymphs (auto) 1.22, Nucleated RBC % 0 02/25/20 15:34: Sodium 141, Potassium 4.3, Chloride 110 H, Carbon Dioxide 28.0, Anion Gap 3 L, BUN 20 H, Creatinine 0.94, Estim Creat Clear Calc 39.01, Est GFR (MDRD) Af Amer 74, Est GFR (MDRD) Non-Af 61, BUN/Creatinine Ratio 21.2 H, Glucose 92, Calcium 8.3 L, Troponin I 0.028 02/25/20 15:34: B-Natriuretic Peptide 542.9 H 02/25/20 15:34: Magnesium 2.1, Iron 15 L, TIBC 487 H, Iron Saturation 3.1 L, Ferritin 15, TSH 0.56 02/25/20 15:47: Lactic Acid 0.8 02/25/20 18:01: POC Glucose 94 02/25/20 18:25: Troponin I 0.029 02/25/20 18:59: Hemoglobin A1c 5.7 H 02/25/20 18:59: Blood Type O POSITIVE, Antibody Screen NEGATIVE, Crossmatch See Detail 02/25/20 21:33: POC Glucose 144 H 02/25/20 22:05: Troponin I 0.016 02/26/20 03:14: WBC 6.6, RBC 3.08 L, Hgb 7.8 L, Hct 25.9 L, MCV 84.1, MCH 25.3 L, MCHC 30.1 L, RDW Std Deviation 49.0 H, RDW Coeff of Abiola 16.0 H, Plt Count 271, MPV 8.6, Immature Gran % (Auto) 0.600, Neut % (Auto) 90.1 H, Lymph % (Auto) 6.9 L, [place] % (Auto) 2.1, Eos % (Auto) 0.0, Baso % (Auto) 0.3, Absolute Neuts (auto) 6.0, Absolute Lymphs (auto) 0.46 L, Nucleated RBC % 0 02/26/20 03:14: Sodium 141, Potassium 4.2, Chloride 108 H, Carbon Dioxide 29.0, Anion Gap 4 L, BUN 24 H, Creatinine 1.16 H, Estim Creat Clear Calc 31.61, Est GFR (MDRD) Af Amer 58 L, Est GFR (MDRD) Non-Af 48 L, BUN/Creatinine Ratio 20.7 H, Glucose 142 H, Calcium 7.9 L, Total Bilirubin 0.70, AST 20, ALT 24, Alkaline Phosphatase 108, Total Protein 6.3 L, Albumin 2.4 L, Globulin 3.9, Albumin/Globulin Ratio 0.6 L, Triglycerides 45, Cholesterol 100, LDL Cholesterol 32, VLDL Cholesterol 9, HDL Cholesterol 59 02/26/20 06:12: POC Glucose 107 02/26/20 12:02: POC Glucose 98 Current Medications Acetaminophen (Acetaminophen 325 Mg Tablet) 650 mg PO Q6H PRN PRN PRN Reason: Pain Score 1-10/Temp > 100.7 F Last Admin: 02/26/20 09:22 Dose: 650 mg Documented by: Al Hydroxide/Mg Hydroxide (Mag Hydrox/Al Hydrox/Simeth 30 Ml Udc) 30 ml PO Q6H PRN PRN PRN Reason: Gastric Burning Albuterol Sulfate (Albuterol 2.5 Mg/3 Ml Vial.Neb.) 2.5 mg INHALATION Q2H PRN PRN PRN Reason: Dyspnea, wheezing Albuterol/Ipratropium (Ipratropium/Albuterol Sulfate 3 Ml Ampul.Neb) 3 ml INHALATION Q6HWA.RT [facility] Last Admin: 02/26/20 11:29 Dose: 3 ml Documented by: Atorvastatin Calcium (Atorvastatin Calcium 40 Mg Tablet) 40 mg PO QHS RADHA Citalopram Hydrobromide (Citalopram 20 Mg Tablet) 20 mg PO DAILY [facility] Clopidogrel Bisulfate (Clopidogrel Bisulfate 75 Mg Tablet) 75 mg PO DAILY [facility] Dextrose (Dextrose 50%-Water 25 Gm/50 Ml Disp.Syrin) 0 gm IV X1 PRN; Protocol PRN Reason: Hypoglycemia Furosemide (Furosemide 40 Mg/4 Ml Vial) 40 mg IV BID@1000,1800 [facility] Last Admin: 02/26/20 09:02 Dose: 40 mg Documented by: Glucagon (Glucagon 1 Mg/Ml Syringe) 1 mg IM .X1 PRN PRN Reason: Hypoglycemia Guaifenesin (Guaifenesin 10 Ml Udc (200mg/10ml)) 20 ml PO Q4H PRN PRN PRN Reason: COUGH Hydralazine HCl (Hydralazine 20 Mg/Ml Vial) 10 mg IV Q4H PRN PRN PRN Reason: SBP > 160 Ferric Sodium Gluconate Complex 250 mg/ Sodium Chloride 270 mls @ 135 mls/hr IV DAILY [facility] Stop: 02/28/20 11:59 Last Admin: 02/26/20 10:41 Dose: 135 mls/hr Documented by: Insulin Human Lispro (Insulin Lispro 100 Unit/Ml Insuln.Pen) 0 unit SC [facility]S [facility]; Protocol Last Admin: 02/26/20 06:17 Dose: Not Given Documented by: Loperamide HCl (Loperamide 2 Mg Capsule) 2 mg PO Q4H PRN PRN PRN Reason: Diarrhea Magnesium Hydroxide (Magnesium Hydroxide 30 Ml Udc) 30 ml PO DAILY PRN PRN PRN Reason: Constipation Melatonin (Melatonin 3 Mg Tablet) 3 mg PO QHS PRN PRN PRN Reason: INSOMNIA Metoprolol Succinate (Metoprolol(Xl)Succ 25 Mg Tablet) 12.5 mg PO DAILY [facility] Midodrine (Midodrine Hcl 5 Mg Tablet) 5 mg PO Q8 RADHA Montelukast Sodium (Montelukast 10 Mg Tablet) 10 mg PO QHS PRN PRN Reason: ALLERGIES Nitroglycerin (Nitroglycerin (Inpatient Use) 0.4 Mg Tab.Subl) 0.4 mg SUBLINGUAL Q5M PRN PRN Reason: CARDIAC/CHEST PAIN Ondansetron HCl (Ondansetron 4 Mg/2 Ml Vial) 4 mg IV Q8H PRN PRN PRN Reason: NAUSEA/VOMITING Last Admin: 02/26/20 06:17 Dose: 4 mg Documented by: Pantoprazole Sodium (Pantoprazole Sodium 40 Mg Tablet) 40 mg PO BID [facility] Last Admin: 02/26/20 09:02 Dose: 40 mg Documented by: Pramipexole Dihydrochloride (Pramipexole Di-Hcl 0.5 Mg Tablet) 1.5 mg PO TID [facility] Last Admin: 02/26/20 06:17 Dose: Not Given Documented by: Prochlorperazine Edisylate (Prochlorperazine 10 Mg/2 Ml Vial) 5 mg IV Q4H PRN PRN PRN Reason: Breakthrough Nausea/Vomiting Psyllium Hydrophilic Mucilloid (Psyllium 1 Packet) 1 packet PO DAILY PRN PRN PRN Reason: Constipation Senna/Docusate Sodium (Senna/Docusate Sodium 1 Tablet) 2 tablet PO BID PRN PRN PRN Reason: Constipation Sodium Chloride (0.9% Saline Lock 10 Ml Syringe) 10 - 40 ml IV UD PRN PRN Reason: SALINE FLUSH Last Admin: 02/26/20 09:02 Dose: 20 ml Documented by: Throat Lozenges (Benzocaine/Menthol 1 Lozenge) 1 lozenge MUCOUS MEM Q2H PRN PRN PRN Reason: SORE THROAT Tolterodine Tartrate (Tolterodine Tartrate 2 Mg Cap.Sa) 2 mg PO DAILY RADHA STROKE Vital Signs/Narrative: Vital Signs Pulse Resp Pulse Ox 02/26/20 11:30 90 24 H 98 02/26/20 10:53 74 Assessment/Plan This patient was seen in conjunction with Saul Tarango PA-C . I have independently interviewed and examined the patient and reviewed pertinent historical, laboratory, and other data. Please refer to Saul Tarango PA-C note for details of this patient's presentation, findings, and recommendations. I have reviewed Saul Tarango PA-C note and concur with documented findings. In brief, patient is a 79-year-old lady with multiple comorbidities admitted with progressive shortness of breath and assessment of acute hypoxic respiratory insufficiency secondary to congestive heart failure with preserved ejection fraction made. Patient was also found to have significant anemia and was transfused with 1 unit PRBC Physical Examination: GENERAL: cooperative HEENT: Atraumatic; EYES; Anicteric, Normal Conjunctiva NECK; supple, normal thyroid, RESPIRATORY: Diminished to auscultation CARDIOVASCULAR: Regular S1 S2, GI: soft, normoactive bowel sounds, : No Renal angle tenderness; EXTREMITIES: edema, no clubbing, MUSCULOSKELETAL: no muscle waisting NEURO: Awake; no lateralizing signs. SKIN: No Rash PSYCH; Flat affect Assessment: 1. Acute hypoxic respiratory insufficiency 2. Congestive heart failure with preserved ejection fraction 3. Acute anemia?anemia secondary to anemia of chronic disorder 4. Obesity with BMI of 48.8 5. Diabetes mellitus type 2 6. Restless leg syndrome 1. Coronary artery disease 8. COPD 9. Obstructive sleep apnea 10. Tobacco dependence 11. DVT prophylaxis Recommendations: 1. I have discussed the results of my overview and impressions with the patient 2. Options for management were reviewed Inpatient E&M: [id number] [facility] Hosp L3
[2020-02-26] MEDS: Clopidogrel Bisulfate 75 MG Tablet PO (13:40)
[2020-02-26] MEDS: Midodrine HCl 5 MG Tablet PO ×2 (13:41→22:39)
[2020-02-26] MEDS: Tolterodine Tartrate 2 MG CAP.SA PO (13:41)
[2020-02-26] MEDS: Metoprolol(XL)Succ 25 MG Tablet 12.5 MG PO (13:41)
[2020-02-26] MEDS: Citalopram 20 MG Tablet PO (13:41)
[2020-02-26] MEDS: proCHLORPERazine 10 MG/2 ML Vial 5 MG IV (13:56)
[2020-02-26] MEDS: Pramipexole Di-HCl 0.5 MG Tablet 1.5 MG PO ×2 (14:01→22:39)
[2020-02-26 17:25] LABS: Bedside Glucose 105 mg/dL (70-110)
[2020-02-26] MEDS: Morphine 2 MG/ML Syringe 1 MG IV ×2 (18:37→22:58)
--- NOTE | 2020-02-26 20:02 | CPS ---
pt refused tx at this time due to ongoing nausea
[2020-02-26] MEDS: MELATONIN 3 MG TABLET PO (22:39)
[2020-02-26] MEDS: Atorvastatin Calcium 40 MG Tablet PO (22:39)
[2020-02-26 22:55] LABS: Bedside Glucose 113 mg/dL (70-110)
--- NOTE | 2020-02-26 23:32 | NURSING ---
Dr. Tello arrived on unit after being paged to assess the patient. This nurse was present during the physical assessment. Dr. Tello agreed to continue with vitals q 4hrs to allow the patient to rest, and notify him if values worsen.
[2020-02-27] VITALS (29 sets, daily range): BP systolic 63–107; BP diastolic 48–88; PULSE 73–123; RESP 14–20; TEMP 36.7–37.2; O2SAT 90–98; BMI 48.8
[2020-02-27 05:39] LABS: Absolute Lymphocyte Count 0.63 X10^3/uL (0.83-4.51); Absolute Neutrophil Count 7.4 X10^3/uL (2.0-7.7); Basophil# 0.03 X10^3/uL; Basophil% 0.3 % (0-1); Eosinophil# 0.01 X10^3/uL; Eosinophils% 0.1 % (0-5); Hematocrit 32.7 % (37-47); Hemoglobin 9.7 g/dL (12.0-15.0); Lymphocyte # 0.63 X10^3/ul (4.0); Lymphocyte % 6.9 % (19-41); Mean Corp Hgb Conc 29.7 g/dL (32-36); Mean Corpuscular Hgb 24.6 pg (27.0-32.0); Mean Platelet Vol. 8.8 fl (6.2-12.0); Monocyte# 0.94 X10^3/uL; Monocyte% 10.4 % (0-10); NRBC Flagged by Analyzer 0.2 % (0-5); Neutrophil # 7.43 X10^3/uL (2.7-7.7); Platelet Count 343 K/mm3 (150-450); RBC Distribution Width CV 16.2 % (11.6-14.6); RBC Distribution Width SD 48.9 fl (35.1-43.9); Red Blood Count 3.94 M/mm3 (4.2-5.4); White Blood Count 9.1 K/mm3 (4.4-11.0)
[2020-02-27 05:52] LABS: International Normalized Ratio 1.2; Prothrombin Time (Protime)PT. 14.3 SECONDS (11.7-14.9)
[2020-02-27 05:53] LABS: Partial Thromboplast Time 33.8 Seconds (24.1-36.2)
[2020-02-27 05:57] LABS: Anion Gap 6 (5-15); BUN 30 mg/dL (7-18); BUN/Creat Ratio 26.1 RATIO (10-20); Calcium,Total 8.4 mg/dL (8.5-10.1); Chloride 103 mmol/L (98-107); Creatinine, Serum 1.15 mg/dL (0.55-1.02); EST Glomerular Filtration Rate 49 mL/min (>60); Est Glom Filt Rate - Afr Amer 59 mL/min (>60); Estimated Creatinine Clearance 31.89 ml/min; Glucose 126 mg/dL (74-106); Potassium 3.7 mmol/L (3.5-5.1); Sodium Level 140 mmol/L (136-145)
--- NOTE | 2020-02-27 06:20 | PCS.PANDOC ---
PANDEMIC DOCUMENTATION INITIATED: Date: 02/25/2020 Time: 190
[2020-02-27 06:35] LABS: Bedside Glucose 124 mg/dL (70-110)
[2020-02-27] MEDS: Ipratropium/Albuterol Sulfate 3 ML AMPUL.NEB INHALATION ×2 (06:48→19:51)
--- NOTE | 2020-02-27 07:54 | PCM.PN.SRG ---
Patient Problems: Active and Suspected Problems (Last Reviewed 02/26/20 @ 15:11 by Deyanira QUIJANO, PAAlona) CHF (congestive heart failure) (Acute) Anemia (Acute) Subjective: Patient does not note any blood through her stoma overnight. - Physical Exam Vitals/I&O's: Vital Signs Temp Pulse Resp BP Pulse Ox 98.4 F 80 20 H 106/66 91 02/27/20 02:30 02/27/20 06:48 02/27/20 06:48 02/27/20 02:30 02/27/20 06:48 Oxygen Flow Rate (L/min) 1.5 Oxygen Delivery Method Nasal Cannula Weight: 267 lb Body Mass Index (BMI) 48.8 Finger Stick Blood Glucose 88 Intake and Output for Last 24 Hours 02/25/20 02/26/20 02/27/20 23:59 23:59 23:59 Intake Total 120 / 120 1760 / 1760 Output Total 2350 / 4250 2500 / 2500 Balance 120 / -430 -590 / -2490 -2500 / -2500 General: Alert, Oriented x3 Lungs: Normal air movement Abdomen: Soft, Non Tender, Non-Distended Microbiology Past 72 Hours 02/26/20 00:50 Mucosa - Nasopharyngeal Respiratory Panel (PCR) - Final 02/25/20 20:50 Stool Stool Occult Blood (JOSE) - Final Occult Blood Positive Laboratory Results 02/26/20 12:02: POC Glucose 98 02/26/20 17:12: POC Glucose 105 02/26/20 22:27: POC Glucose 113 H 02/27/20 05:02: WBC 9.1, RBC 3.94 L, Hgb 9.7 L, Hct 32.7 L, MCV 83.0, MCH 24.6 L, MCHC 29.7 L, RDW Std Deviation 48.9 H, RDW Coeff of Abiola 16.2 H, Plt Count 343, MPV 8.8, Immature Gran % (Auto) 0.300, Neut % (Auto) 82.0 H, Lymph % (Auto) 6.9 L, [place] % (Auto) 10.4 H, Eos % (Auto) 0.1, Baso % (Auto) 0.3, Absolute Neuts (auto) 7.4, Absolute Lymphs (auto) 0.63 L, Nucleated RBC % 0.2 02/27/20 05:02: Sodium 140, Potassium 3.7, Chloride 103, Carbon Dioxide 31.0, Anion Gap 6, BUN 30 H, Creatinine 1.15 H, Estim Creat Clear Calc 31.89, Est GFR (MDRD) Af Amer 59 L, Est GFR (MDRD) Non-Af 49 L, BUN/Creatinine Ratio 26.1 H, Glucose 126 H, Calcium 8.4 L 02/27/20 05:02: PT 14.3, INR 1.2, APTT 33.8 02/27/20 06:27: POC Glucose 124 H Current Medications Acetaminophen (Acetaminophen 325 Mg Tablet) 650 mg PO Q6H PRN PRN PRN Reason: Pain Score 1-10/Temp > 100.7 F Last Admin: 02/26/20 09:22 Dose: 650 mg Documented by: Al Hydroxide/Mg Hydroxide (Mag Hydrox/Al Hydrox/Simeth 30 Ml Udc) 30 ml PO Q6H PRN PRN PRN Reason: Gastric Burning Albuterol Sulfate (Albuterol 2.5 Mg/3 Ml Vial.Neb.) 2.5 mg INHALATION Q2H PRN PRN PRN Reason: Dyspnea, wheezing Albuterol/Ipratropium (Ipratropium/Albuterol Sulfate 3 Ml Ampul.Neb) 3 ml INHALATION Q6HWA.RT [facility] Last Admin: 02/27/20 06:48 Dose: 3 ml Documented by: Atorvastatin Calcium (Atorvastatin Calcium 40 Mg Tablet) 40 mg PO QHS [facility] Last Admin: 02/26/20 22:39 Dose: 40 mg Documented by: Citalopram Hydrobromide (Citalopram 20 Mg Tablet) 20 mg PO DAILY [facility] Last Admin: 02/26/20 13:41 Dose: 20 mg Documented by: Clopidogrel Bisulfate (Clopidogrel Bisulfate 75 Mg Tablet) 75 mg PO DAILY [facility] Last Admin: 02/26/20 13:40 Dose: 75 mg Documented by: Dextrose (Dextrose 50%-Water 25 Gm/50 Ml Disp.Syrin) 0 gm IV X1 PRN; Protocol PRN Reason: Hypoglycemia Furosemide (Furosemide 40 Mg/4 Ml Vial) 40 mg IV BID@1000,1800 [facility] Last Admin: 02/26/20 17:16 Dose: 40 mg Documented by: Glucagon (Glucagon 1 Mg/Ml Syringe) 1 mg IM .X1 PRN PRN Reason: Hypoglycemia Guaifenesin (Guaifenesin 10 Ml Udc (200mg/10ml)) 20 ml PO Q4H PRN PRN PRN Reason: COUGH Hydralazine HCl (Hydralazine 20 Mg/Ml Vial) 10 mg IV Q4H PRN PRN PRN Reason: SBP > 160 Ferric Sodium Gluconate Complex 250 mg/ Sodium Chloride 270 mls @ 135 mls/hr IV DAILY [facility] Stop: 02/28/20 11:59 Last Infusion: 02/26/20 13:40 Dose: Infused Documented by: Insulin Human Lispro (Insulin Lispro 100 Unit/Ml Insuln.Pen) 0 unit SC ACHS [facility]; Protocol Last Admin: 02/27/20 05:25 Dose: Not Given Documented by: Loperamide HCl (Loperamide 2 Mg Capsule) 2 mg PO Q4H PRN PRN PRN Reason: Diarrhea Magnesium Hydroxide (Magnesium Hydroxide 30 Ml Udc) 30 ml PO DAILY PRN PRN PRN Reason: Constipation Melatonin (Melatonin 3 Mg Tablet) 3 mg PO QHS PRN PRN PRN Reason: INSOMNIA Last Admin: 02/26/20 22:39 Dose: 3 mg Documented by: Metoprolol Succinate (Metoprolol(Xl)Succ 25 Mg Tablet) 12.5 mg PO DAILY [facility] Last Admin: 02/26/20 13:41 Dose: 12.5 mg Documented by: Midodrine (Midodrine Hcl 5 Mg Tablet) 5 mg PO Q8 [facility] Last Admin: 02/27/20 05:25 Dose: Not Given Documented by: Montelukast Sodium (Montelukast 10 Mg Tablet) 10 mg PO QHS PRN PRN Reason: ALLERGIES Morphine Sulfate (Morphine 2 Mg/Ml Syringe) 1 mg IV Q3H PRN PRN PRN Reason: Pain Score 6-10 Last Admin: 02/26/20 22:58 Dose: 1 mg Documented by: Nitroglycerin (Nitroglycerin (Inpatient Use) 0.4 Mg Tab.Subl) 0.4 mg SUBLINGUAL Q5M PRN PRN Reason: CARDIAC/CHEST PAIN Ondansetron HCl (Ondansetron 4 Mg/2 Ml Vial) 4 mg IV Q8H PRN PRN PRN Reason: NAUSEA/VOMITING Last Admin: 02/26/20 18:21 Dose: 4 mg Documented by: Oxycodone HCl (Oxycodone 5 Mg Tablet) 5 mg PO Q6H PRN PRN PRN Reason: Pain Score 6-10 Pantoprazole Sodium (Pantoprazole Sodium 40 Mg Tablet) 40 mg PO BID [facility] Last Admin: 02/26/20 22:39 Dose: 40 mg Documented by: Pramipexole Dihydrochloride (Pramipexole Di-Hcl 0.5 Mg Tablet) 1.5 mg PO TID [facility] Last Admin: 02/27/20 05:26 Dose: Not Given Documented by: Prochlorperazine Edisylate (Prochlorperazine 10 Mg/2 Ml Vial) 5 mg IV Q4H PRN PRN PRN Reason: Breakthrough Nausea/Vomiting Last Admin: 02/26/20 13:56 Dose: 5 mg Documented by: Psyllium Hydrophilic Mucilloid (Psyllium 1 Packet) 1 packet PO DAILY PRN PRN PRN Reason: Constipation Senna/Docusate Sodium (Senna/Docusate Sodium 1 Tablet) 2 tablet PO BID PRN PRN PRN Reason: Constipation Sodium Chloride (0.9% Saline Lock 10 Ml Syringe) 10 - 40 ml IV UD PRN PRN Reason: SALINE FLUSH Last Admin: 02/26/20 18:37 Dose: 10 ml Documented by: Throat Lozenges (Benzocaine/Menthol 1 Lozenge) 1 lozenge MUCOUS MEM Q2H PRN PRN PRN Reason: SORE THROAT Tolterodine Tartrate (Tolterodine Tartrate 2 Mg Cap.Sa) 2 mg PO DAILY [facility] Last Admin: 02/26/20 13:41 Dose: 2 mg Documented by: Medical Necessity - Tobacco Use Smoking Status: Current every day smoker Tobacco Use: Cigarettes Assessment/Plan All Active Problems (Last Reviewed 02/26/20 @ 15:11 by Deyanira QUIJANO, PA-C) CHF (congestive heart failure) (Acute) Anemia (Acute) Influenza A (Resolved) 79-year-old female with positive fecal occult blood and anemia 1. The patient had fecal occult blood positive stool and anemia. The patient was started on a PPI and I will perform an EGD today. Patient has a history of gastric bypass and she is still smoking. I believe the patient has a marginal ulcer which may be bleeding. I continue to recommend smoking cessation but the patient does not want to have that conversation. I explained endoscopy in detail to the patient. I explained the risks including but not limited to stroke or heart attack with anesthesia, perforation of the GI tract, bleeding, infection. I explained that any of these could necessitate further emergency surgery. The patient understands and all questions were answered sufficiently. The patient wishes to proceed with procedure. Hamilton Roth MD Pager: [facility] [address] [place] [address] [address] [place] [address] Office:
[2020-02-27] MEDS: Metoprolol(XL)Succ 25 MG Tablet 12.5 MG PO (10:04)
--- NOTE | 2020-02-27 11:57 | PN_ITS ---
<Saul Tarango - Last Filed: 02/27/20 11:57> Patient Problems: Active and Suspected Problems (Last Reviewed 02/26/20 @ 15:11 by Deyanira QUIJANO PANbaC) CHF (congestive heart failure) (Acute) Anemia (Acute) Reason for Visit: CHF, anemia Subjective: Pt resting comfortably in bed NAD. SOB and LE edema with marked improvement. Pt planning for EGD today. No CP/palp. No cough/fever/chills. No black output from ostomy today. Vitals/I&O's: Vital Signs Temp Pulse Resp BP Pulse Ox 98.9 F 85 16 101/56 L 92 02/27/20 09:30 02/27/20 10:04 02/27/20 10:00 02/27/20 10:04 02/27/20 09:30 Oxygen Flow Rate (L/min) 3 Oxygen Delivery Method Nasal Cannula Weight: 267 lb Body Mass Index (BMI) 48.8 Finger Stick Blood Glucose 88 Intake and Output for Last 24 Hours 02/25/20 02/26/20 02/27/20 23:59 23:59 23:59 Intake Total 120 / 120 1760 / 1760 Output Total 2350 / 4250 2500 / 2500 Balance 120 / -430 -590 / -2490 -2500 / -2500 General: Alert, Oriented x3, Cooperative HEENT: Atraumatic, PERRLA, EOMI, Normocephalic Neck: Supple, No JVD, Negative Carotid Bruits Lungs: Clear to auscultation, Normal air movement Cardiovascular: Regular rate, No murmurs Abdomen: Bowel Sounds Present, Soft, Non Tender, Obese Extremities: No edema, Capillary Refill Less than 3 Seconds Skin: No rashes, No breakdown Musculoskeletal: No Tenderness to Palpation of Joints or Extremities Neurological: Cranial nerves II-XII grossly intact Psych/Mental Status: Normal Affect, Appropriate, Alert and oriented to time, place, person, mood and affect Microbiology Past 72 Hours 02/26/20 00:50 Mucosa - Nasopharyngeal Respiratory Panel (PCR) - Final 02/25/20 20:50 Stool Stool Occult Blood (JOSE) - Final Occult Blood Positive Laboratory Results 02/26/20 12:02: POC Glucose 98 02/26/20 17:12: POC Glucose 105 02/26/20 22:27: POC Glucose 113 H 02/27/20 05:02: WBC 9.1, RBC 3.94 L, Hgb 9.7 L, Hct 32.7 L, MCV 83.0, MCH 24.6 L , MCHC 29.7 L, RDW Std Deviation 48.9 H, RDW Coeff of Abiola 16.2 H, Plt Count 343, MPV 8.8, Immature Gran % (Auto) 0.300, Neut % (Auto) 82.0 H, Lymph % (Auto) 6.9 L, [place] % (Auto) 10.4 H, Eos % (Auto) 0.1, Baso % (Auto) 0.3, Absolute Neuts (auto) 7.4, Absolute Lymphs (auto) 0.63 L, Nucleated RBC % 0.2 02/27/20 05:02: Sodium 140, Potassium 3.7, Chloride 103, Carbon Dioxide 31.0, Anion Gap 6, BUN 30 H, Creatinine 1.15 H, Estim Creat Clear Calc 31.89, Est GFR (MDRD) Af Amer 59 L, Est GFR (MDRD) Non-Af 49 L, BUN/Creatinine Ratio 26.1 H, Glucose 126 H, Calcium 8.4 L 02/27/20 05:02: PT 14.3, INR 1.2, APTT 33.8 02/27/20 06:27: POC Glucose 124 H Current Medications Acetaminophen (Acetaminophen 325 Mg Tablet) 650 mg PO Q6H PRN PRN PRN Reason: Pain Score 1-10/Temp > 100.7 F Last Admin: 02/26/20 09:22 Dose: 650 mg Documented by: Al Hydroxide/Mg Hydroxide (Mag Hydrox/Al Hydrox/Simeth 30 Ml Udc) 30 ml PO Q6H PRN PRN PRN Reason: Gastric Burning Albuterol Sulfate (Albuterol 2.5 Mg/3 Ml Vial.Neb.) 2.5 mg INHALATION Q2H PRN PRN PRN Reason: Dyspnea, wheezing Albuterol/Ipratropium (Ipratropium/Albuterol Sulfate 3 Ml Ampul.Neb) 3 ml I NHALATION Q6HWA.RT [facility] Last Admin: 02/27/20 06:48 Dose: 3 ml Documented by: Atorvastatin Calcium (Atorvastatin Calcium 40 Mg Tablet) 40 mg PO QHS [facility] Last Admin: 02/26/20 22:39 Dose: 40 mg Documented by: Citalopram Hydrobromide (Citalopram 20 Mg Tablet) 20 mg PO DAILY [facility] Last Admin: 02/26/20 13:41 Dose: 20 mg Documented by: Clopidogrel Bisulfate (Clopidogrel Bisulfate 75 Mg Tablet) 75 mg PO DAILY [facility] Last Admin: 02/26/20 13:40 Dose: 75 mg Documented by: Dextrose (Dextrose 50%-Water 25 Gm/50 Ml Disp.Syrin) 0 gm IV X1 PRN; Protocol PRN Reason: Hypoglycemia Furosemide (Furosemide 40 Mg/4 Ml Vial) 40 mg IV BID@1000,1800 [facility] Last Admin: 02/26/20 17:16 Dose: 40 mg Documented by: Glucagon (Glucagon 1 Mg/Ml Syringe) 1 mg IM .X1 PRN PRN Reason: Hypoglycemia Guaifenesin (Guaifenesin 10 Ml Udc (200mg/10ml)) 20 ml PO Q4H PRN PRN PRN Reason: COUGH Hydralazine HCl (Hydralazine 20 Mg/Ml Vial) 10 mg IV Q4H PRN PRN PRN Reason: SBP > 160 Ferric Sodium Gluconate Complex 250 mg/ Sodium Chloride 270 mls @ 135 mls/hr IV DAILY [facility] Stop: 02/28/20 11:59 Last Infusion: 02/26/20 13:40 Dose: Infused Documented by: Insulin Human Lispro (Insulin Lispro 100 Unit/Ml Insuln.Pen) 0 unit SC ACHS [facility]; Protocol Last Admin: 02/27/20 05:25 Dose: Not Given Documented by: Loperamide HCl (Loperamide 2 Mg Capsule) 2 mg PO Q4H PRN PRN PRN Reason: Diarrhea Magnesium Hydroxide (Magnesium Hydroxide 30 Ml Udc) 30 ml PO DAILY PRN PRN PRN Reason: Constipation Melatonin (Melatonin 3 Mg Tablet) 3 mg PO QHS PRN PRN PRN Reason: INSOMNIA Last Admin: 02/26/20 22:39 Dose: 3 mg Documented by: Metoprolol Succinate (Metoprolol(Xl)Succ 25 Mg Tablet) 12.5 mg PO DAILY [facility] Last Admin: 02/27/20 10:04 Dose: 12.5 mg Documented by: Midodrine (Midodrine Hcl 5 Mg Tablet) 5 mg PO Q8 [facility] Last Admin: 02/27/20 05:25 Dose: Not Given Documented by: Montelukast Sodium (Montelukast 10 Mg Tablet) 10 mg PO QHS PRN PRN Reason: ALLERGIES Morphine Sulfate (Morphine 2 Mg/Ml Syringe) 1 mg IV Q3H PRN PRN PRN Reason: Pain Score 6-10 Last Admin: 02/26/20 22:58 Dose: 1 mg Documented by: Nitroglycerin (Nitroglycerin (Inpatient Use) 0.4 Mg Tab.Subl) 0.4 mg SUBLINGUAL Q5M PRN PRN Reason: CARDIAC/CHEST PAIN Ondansetron HCl (Ondansetron 4 Mg/2 Ml Vial) 4 mg IV Q8H PRN PRN PRN Reason: NAUSEA/VOMITING Last Admin: 02/26/20 18:21 Dose: 4 mg Documented by: Oxycodone HCl (Oxycodone 5 Mg Tablet) 5 mg PO Q6H PRN PRN PRN Reason: Pain Score 6-10 Pantoprazole Sodium (Pantoprazole Sodium 40 Mg Tablet) 40 mg PO BID [facility] Last Admin: 02/26/20 22:39 Dose: 40 mg Documented by: Pramipexole Dihydrochloride (Pramipexole Di-Hcl 0.5 Mg Tablet) 1.5 mg PO TID [facility] Last Admin: 02/27/20 05:26 Dose: Not Given Documented by: Prochlorperazine Edisylate (Prochlorperazine 10 Mg/2 Ml Vial) 5 mg IV Q4H PRN PRN PRN Reason: Breakthrough Nausea/Vomiting Last Admin: 02/26/20 13:56 Dose: 5 mg Documented by: Psyllium Hydrophilic Mucilloid (Psyllium 1 Packet) 1 packet PO DAILY PRN PRN PRN Reason: Constipation Senna/Docusate Sodium (Senna/Docusate Sodium 1 Tablet) 2 tablet PO BID PRN PRN PRN Reason: Constipation Sodium Chloride (0.9% Saline Lock 10 Ml Syringe) 10 - 40 ml IV UD PRN PRN Reason: SALINE FLUSH Last Admin: 02/26/20 18:37 Dose: 10 ml Documented by: Throat Lozenges (Benzocaine/Menthol 1 Lozenge) 1 lozenge MUCOUS MEM Q2H PRN PRN PRN Reason: SORE THROAT Tolterodine Tartrate (Tolterodine Tartrate 2 Mg Cap.Sa) 2 mg PO DAILY [facility] Last Admin: 12/15/20 13:41 Dose: 2 mg Documented by: STROKE Vital Signs/Narrative: Vital Signs Temp Pulse Resp BP Pulse Ox 02/27/20 10:04 85 101/56 L 02/27/20 10:00 85 16 02/27/20 09:30 98.9 F 85 16 101/56 L 92 Medical Necessity - Tobacco Use Smoking Status: Current every day smoker Tobacco Use: Cigarettes Assessment/Plan All Active Problems (Last Reviewed 02/26/20 @ 15:11 by Deyanira QUIJANO PANbaC) CHF (congestive heart failure) (Acute) Anemia (Acute) Influenza A (Resolved) 1. Acute hypoxic resp insufficiency 2/2 acute on chronic diastolic CHF - improved. continue lasix. Echo shows EF 65%, 1-2+ MVI, diastolic dysfunction, unable to estimate RV pressure. Trop neg x3. Resp panel neg. 2. Normocytic anemia - acute on chronic - suspected upper GI bleed. continue PPI BID. only moderate improvement in Hgb with 1 unit PRBC. iron studies c/w deficiency - venofer initiated. Gen surgery consulted. EGD today. Hgb improved from 7.4 to 9.7, likely due to 1 unit prbc and hemoconcentration. 3. CAD - recent stent - 12/01. Continue plavix with caution (#2), statin, metoprolol 4. COPD - doubt exacerbation. Continue aerosols and incentive spirometer. Baseline O2 use is at night and prn. 5. JESSICA - bipap taken away due to noncompliance. She is willing to do bipap while here. 6. DMt2, morbid obesity - diet controlled since prior gastric bypass. A1C 5.7% 7. Hernia - reducible. follows with the clinic. has ostomy - c/s wound nurse for ostomy care. 8. RLS - mirapex 9. Ongoing nicotine abuse - pt reduced smoking from 2 ppd to 5 cig/day. patch if desired. pt needs complete cessation. DVT ppx: lovenox DC planning: PTOT evals. Likely ready for DC tomorrow. She is very weak. This patient was seen by Saul Tarango PA-C under the supervision of Dr. Holbrook <Casey Holbrook - Last Filed: 02/27/20 13:10> Vitals/I&O's: Vital Signs Temp Pulse Resp BP Pulse Ox 98.9 F 85 16 101/56 L 92 02/27/20 09:30 02/27/20 10:04 02/27/20 10:00 02/27/20 10:04 02/27/20 09:30 Oxygen Flow Rate (L/min) 3 Oxygen Delivery Method Nasal Cannula Weight: 121.109 kg Body Mass Index (BMI) 48.8 Finger Stick Blood Glucose 88 Intake and Output for Last 24 Hours 02/25/20 02/26/20 02/27/20 23:59 23:59 23:59 Intake Total 120 / 120 1760 / 1760 120 / 120 Output Total 2350 / 4250 3400 / 3400 Balance 120 / -430 -590 / -2490 -3280 / -3280 Microbiology Past 72 Hours 02/26/20 00:50 Mucosa - Nasopharyngeal Respiratory Panel (PCR) - Final 02/25/20 20:50 Stool Stool Occult Blood (JOSE) - Final Occult Blood Positive Laboratory Results 02/26/20 17:12: POC Glucose 105 02/26/20 22:27: POC Glucose 113 H 02/27/20 05:02: WBC 9.1, RBC 3.94 L, Hgb 9.7 L, Hct 32.7 L, MCV 83.0, MCH 24.6 L , MCHC 29.7 L, RDW Std Deviation 48.9 H, RDW Coeff of Abiola 16.2 H, Plt Count 343, MPV 8.8, Immature Gran % (Auto) 0.300, Neut % (Auto) 82.0 H, Lymph % (Auto) 6.9 L, [place] % (Auto) 10.4 H, Eos % (Auto) 0.1, Baso % (Auto) 0.3, Absolute Neuts (auto) 7.4, Absolute Lymphs (auto) 0.63 L, Nucleated RBC % 0.2 02/27/20 05:02: Sodium 140, Potassium 3.7, Chloride 103, Carbon Dioxide 31.0, Anion Gap 6, BUN 30 H, Creatinine 1.15 H, Estim Creat Clear Calc 31.89, Est GFR (MDRD) Af Amer 59 L, Est GFR (MDRD) Non-Af 49 L, BUN/Creatinine Ratio 26.1 H, Glucose 126 H, Calcium 8.4 L 02/27/20 05:02: PT 14.3, INR 1.2, APTT 33.8 02/27/20 06:27: POC Glucose 124 H 02/27/20 11:48: POC Glucose 99 Current Medications Acetaminophen (Acetaminophen 325 Mg Tablet) 650 mg PO Q6H PRN PRN PRN Reason: Pain Score 1-10/Temp > 100.7 F Last Admin: 02/26/20 09:22 Dose: 650 mg Documented by: Al Hydroxide/Mg Hydroxide (Mag Hydrox/Al Hydrox/Simeth 30 Ml Udc) 30 ml PO Q6H PRN PRN PRN Reason: Gastric Burning Albuterol Sulfate (Albuterol 2.5 Mg/3 Ml Vial.Neb.) 2.5 mg INHALATION Q2H PRN PRN PRN Reason: Dyspnea, wheezing Albuterol/Ipratropium (Ipratropium/Albuterol Sulfate 3 Ml Ampul.Neb) 3 ml INHALATION Q6HWA.RT [facility] Last Admin: 02/27/20 06:48 Dose: 3 ml Documented by: Atorvastatin Calcium (Atorvastatin Calcium 40 Mg Tablet) 40 mg PO QHS [facility] Last Admin: 02/26/20 22:39 Dose: 40 mg Documented by: Citalopram Hydrobromide (Citalopram 20 Mg Tablet) 20 mg PO DAILY [facility] Last Admin: 02/26/20 13:41 Dose: 20 mg Documented by: Clopidogrel Bisulfate (Clopidogrel Bisulfate 75 Mg Tablet) 75 mg PO DAILY [facility] Last Admin: 02/26/20 13:40 Dose: 75 mg Documented by: Dextrose (Dextrose 50%-Water 25 Gm/50 Ml Disp.Syrin) 0 gm IV X1 PRN; Protocol PRN Reason: Hypoglycemia Furosemide (Furosemide 40 Mg/4 Ml Vial) 40 mg IV BID@1000,1800 [facility] Last Admin: 02/26/20 17:16 Dose: 40 mg Documented by: Glucagon (Glucagon 1 Mg/Ml Syringe) 1 mg IM .X1 PRN PRN Reason: Hypoglycemia Guaifenesin (Guaifenesin 10 Ml Udc (200mg/10ml)) 20 ml PO Q4H PRN PRN PRN Reason: COUGH Hydralazine HCl (Hydralazine 20 Mg/Ml Vial) 10 mg IV Q4H PRN PRN PRN Reason: SBP > 160 Ferric Sodium Gluconate Complex 250 mg/ Sodium Chloride 270 mls @ 135 mls/hr IV DAILY [facility] Stop: 02/28/20 11:59 Last Infusion: 02/26/20 13:40 Dose: Infused Documented by: Insulin Human Lispro (Insulin Lispro 100 Unit/Ml Insuln.Pen) 0 unit SC ACHS [facility]; Protocol Last Admin: 02/27/20 05:25 Dose: Not Given Documented by: Loperamide HCl (Loperamide 2 Mg Capsule) 2 mg PO Q4H PRN PRN PRN Reason: Diarrhea Magnesium Hydroxide (Magnesium Hydroxide 30 Ml Udc) 30 ml PO DAILY PRN PRN PRN Reason: Constipation Melatonin (Melatonin 3 Mg Tablet) 3 mg PO QHS PRN PRN PRN Reason: INSOMNIA Last Admin: 02/26/20 22:39 Dose: 3 mg Documented by: Metoprolol Succinate (Metoprolol(Xl)Succ 25 Mg Tablet) 12.5 mg PO DAILY [facility] Last Admin: 02/27/20 10:04 Dose: 12.5 mg Documented by: Midodrine (Midodrine Hcl 5 Mg Tablet) 5 mg PO Q8 [facility] Last Admin: 02/27/20 05:25 Dose: Not Given Documented by: Montelukast Sodium (Montelukast 10 Mg Tablet) 10 mg PO QHS PRN PRN Reason: ALLERGIES Morphine Sulfate (Morphine 2 Mg/Ml Syringe) 1 mg IV Q3H PRN PRN PRN Reason: Pain Score 6-10 Last Admin: 02/26/20 22:58 Dose: 1 mg Documented by: Nitroglycerin (Nitroglycerin (Inpatient Use) 0.4 Mg Tab.Subl) 0.4 mg SUBLINGUAL Q5M PRN PRN Reason: CARDIAC/CHEST PAIN Ondansetron HCl (Ondansetron 4 Mg/2 Ml Vial) 4 mg IV Q8H PRN PRN PRN Reason: NAUSEA/VOMITING Last Admin: 02/26/20 18:21 Dose: 4 mg Documented by: Oxycodone HCl (Oxycodone 5 Mg Tablet) 5 mg PO Q6H PRN PRN PRN Reason: Pain Score 6-10 Pantoprazole Sodium (Pantoprazole Sodium 40 Mg Tablet) 40 mg PO BID [facility] Last Admin: 02/26/20 22:39 Dose: 40 mg Documented by: Pramipexole Dihydrochloride (Pramipexole Di-Hcl 0.5 Mg Tablet) 1.5 mg PO TID [facility] Last Admin: 02/27/20 05:26 Dose: Not Given Documented by: Prochlorperazine Edisylate (Prochlorperazine 10 Mg/2 Ml Vial) 5 mg IV Q4H PRN PRN PRN Reason: Breakthrough Nausea/Vomiting Last Admin: 02/26/20 13:56 Dose: 5 mg Documented by: Psyllium Hydrophilic Mucilloid (Psyllium 1 Packet) 1 packet PO DAILY PRN PRN PRN Reason: Constipation Senna/Docusate Sodium (Senna/Docusate Sodium 1 Tablet) 2 tablet PO BID PRN PRN PRN Reason: Constipation Sodium Chloride (0.9% Saline Lock 10 Ml Syringe) 10 - 40 ml IV UD PRN PRN Reason: SALINE FLUSH Last Admin: 02/26/20 18:37 Dose: 10 ml Documented by: Throat Lozenges (Benzocaine/Menthol 1 Lozenge) 1 lozenge MUCOUS MEM Q2H PRN PRN PRN Reason: SORE THROAT Tolterodine Tartrate (Tolterodine Tartrate 2 Mg Cap.Sa) 2 mg PO DAILY [facility] Last Admin: 02/26/20 13:41 Dose: 2 mg Documented by: STROKE Vital Signs/Narrative: Vital Signs Temp Pulse Resp BP Pulse Ox 02/27/20 10:04 85 101/56 L 02/27/20 10:00 85 16 02/27/20 09:30 98.9 F 85 16 101/56 L 92 Assessment/Plan This patient was seen in conjunction with Saul Tarango PA-C . I have independently interviewed and examined the patient and reviewed pertinent historical, laboratory, and other data. Please refer to Saul Tarango PA-C note for details of this patient's presentation, findings, and recommendations. I have reviewed Saul Tarango PA-C note and concur with documented findings. In brief, patient is a 79-year-old lady with multiple comorbidities admitted with progressive shortness of breath and assessment of acute hypoxic respiratory insufficiency secondary to congestive heart failure with preserved ejection fraction made. Patient was also found to have significant anemia and was transfused with 1 unit PRBC 02/27/2020; patient seen denies any further melenic stools. Patient is scheduled to undergo EGD by Dr. Roth Physical Examination: GENERAL: cooperative HEENT: Atraumatic; EYES; Anicteric, Normal Conjunctiva NECK; supple, normal thyroid, RESPIRATORY: Diminished to auscultation CARDIOVASCULAR: Regular S1 S2, GI: soft, normoactive bowel sounds, : No Renal angle tenderness; EXTREMITIES: edema, no clubbing, MUSCULOSKELETAL: no muscle waisting NEURO: Awake; no lateralizing signs. SKIN: No Rash PSYCH; Flat affect Assessment: 1. Acute hypoxic respiratory insufficiency 2. Congestive heart failure with preserved ejection fraction 3. Acute anemia?anemia secondary to anemia of chronic disorder 4. Obesity with BMI of 48.8 5. Diabetes mellitus type 2 6. Restless leg syndrome 1. Coronary artery disease 8. COPD 9. Obstructive sleep apnea 10. Tobacco dependence 11. DVT prophylaxis Recommendations: 1. I have discussed the results of my overview and impressions with the patient 2. Options for management were reviewed Inpatient E&M: 42985 Subs Hosp L2
[2020-02-27 12:26] LABS: Bedside Glucose 99 mg/dL (70-110)
--- NOTE | 2020-02-27 13:23 | OP.EGD_ITS ---
Patient Name: Ada Mathias Procedure Date: 02/27/2020 12:36 PM Date of : 1940 Age: 79 Procedure: Upper GI endoscopy Indications: Iron deficiency anemia, Occult blood in stool Providers: Hamilton Roth MD Medicines: Monitored Anesthesia Care Patient Profile: This is a 79 year old female. Refer to note in patient chart for documentation of history and physical. Complications: No immediate complications. Procedure: Pre-Anesthesia Assessment: - Prior to the procedure, a History and Physical was performed, and patient medications and allergies were reviewed. The patient's tolerance of previous anesthesia was also reviewed. The risks and benefits of the procedure and the sedation options and risks were discussed with the patient. All questions were answered, and informed consent was obtained. Prior Anticoagulants: The patient has taken no previous anticoagulant or antiplatelet agents. After reviewing the risks and benefits, the patient was deemed in satisfactory condition to undergo the procedure. After obtaining informed consent, the endoscope was passed under direct vision. Throughout the procedure, the patient's blood pressure, pulse, and oxygen saturations were monitored continuously. The gastroscope was introduced through the mouth, and advanced to the operative stoma of duodenum. The upper GI endoscopy was accomplished without difficulty. The patient tolerated the procedure well. Scope In: 1:02:55 PM Scope Out: 1:04:46 PM Total Procedure Duration Time 0 hours 1 minute 51 seconds Findings: The esophagus was normal. The stomach was normal. Anastomosis from gastric bypass normal with no ulcer or bleeding. Impression: - Normal esophagus. - Normal stomach. - No specimens collected. Recommendation: - [facility]. - Continue present medications. Procedure Code(s): --- Professional --- 28965, Esophagogastroduodenoscopy, flexible, transoral; diagnostic, including collection of specimen(s) by brushing or washing, when performed (separate procedure) Diagnosis Code(s): --- Professional --- D50.9, Iron deficiency anemia, unspecified R19.5, Other fecal abnormalities CPT copyright 2017 [employer]. All rights reserved. The codes documented in this report are preliminary and upon remote coders review may be revised to meet current compliance requirements. Hamilton Roth MD 02/27/2020 1:22:39 PM This report has been signed electronically. Number of Addenda: 0 Note Initiated On: 02/27/2020 12:36 PM
--- NOTE | 2020-02-27 13:23 | OP.CCLET_ITS ---
02/27/2020 Vicente Raya [address] [place] [address] Re : Upper GI endoscopy procedure for Ada Recinoserty Dear Dr. Raya This procedure was performed on Thursday, February 27, 2020. My impressions and recommendations are as follows: Impressions : - Normal esophagus. - Normal stomach. - No specimens collected. Recommendations : - [facility] to [facility]. - Continue present medications. My findings are described in the full procedure note, which is enclosed. If I can be of further assistance, please feel free to contact me at Doctor phone number(s): , Work: . Sincerely, Hamilton Roth MD 02/27/2020 1:22:39 PM This report has been signed electronically.
--- NOTE | 2020-02-27 13:33 | PN_ITS ---
Progress Note I performed an EGD. There was no stigmata or blood clots. I did not appreciate any ulcers at the anastomosis. Patient may be started on a diet but I would continue PPI for 1 month to be safe. Follow-up as needed. Hamilton Roth MD Pager: [facility] [address] [place] [address], [address] [place] [address] Office: [facility] Vital Signs/Narrative: Vital Signs Temp Pulse Resp BP Pulse Ox 02/27/20 13:12 98.9 F 81 16 103/62 95 02/27/20 10:04 85 101/56 L 02/27/20 10:00 85 16
--- NOTE | 2020-02-27 13:33 | PCM.PN.BLA ---
Progress Note I performed an EGD. There was no stigmata or blood clots. I did not appreciate any ulcers at the anastomosis. Patient may be started on a diet but I would continue PPI for 1 month to be safe. Follow-up as needed. Hamilton Roth MD Pager: [facility] [address] [place] [address], [address] [place] [address] Office: [facility] Vital Signs/Narrative: Vital Signs Temp Pulse Resp BP Pulse Ox 02/27/20 13:12 98.9 F 81 16 103/62 95 02/27/20 10:04 85 101/56 L 02/27/20 10:00 85 16
--- NOTE | 2020-02-27 13:43 | EKG12_ITS ---
Test Reason : Blood Pressure : / mmHG Vent. Rate : 119 BPM Atrial Rate : 129 BPM P-R Int : 174 ms QRS Dur : 080 ms QT Int : 356 ms P-R-T Axes : 041 060 149 degrees QTc Int : [address] & T wave abnormality, consider lateral ischemia Abnormal ECG Confirmed by STEFANIE LEI, SUMA ([id number]), production editor TEE UGARTE ([id number]) on 03/06/2020 9:15:21 AM Referred By: Confirmed By:SUMA WATTS MD
--- NOTE | 2020-02-27 13:59 | EKG12_ITS ---
Test Reason : SVT Blood Pressure : / mmHG Vent. Rate : 081 BPM Atrial Rate : 081 BPM P-R Int : 144 ms QRS Dur : 082 ms QT Int : 370 ms P-R-T Axes : 060 079 145 degrees QTc Int : 429 ms Poor data quality, interpretation may be adversely affected Sinus rhythm ST & T wave abnormality, consider lateral ischemia Abnormal ECG Confirmed by STEFANIE LEI, SUMA ([id number]), graphics editor DANIA FULLER ([id number]) on 03/06/2020 11:59:39 AM Referred By: NICK Confirmed By:SUMA WATTS MD
--- NOTE | 2020-02-27 14:01 | EKG12_ITS ---
Test Reason : SVT Blood Pressure : / mmHG Vent. Rate : 129 BPM Atrial Rate : 129 BPM P-R Int : 170 ms QRS Dur : 082 ms QT Int : 344 ms P-R-T Axes : 056 079 209 degrees QTc Int : [address] & T wave abnormality, consider inferolateral ischemia Abnormal ECG Confirmed by STEFANIE LEI, SUMA ([id number]), non linear editor DANIA FULLER ([id number]) on 03/06/2020 11:59:49 AM Referred By: NICK Confirmed By:SUMA WATTS MD
--- NOTE | 2020-02-27 14:26 | EKG12_ITS ---
Test Reason : SVT Blood Pressure : / mmHG Vent. Rate : 079 BPM Atrial Rate : 079 BPM P-R Int : 160 ms QRS Dur : 082 ms QT Int : 364 ms P-R-T Axes : 060 077 174 degrees QTc Int : 417 ms Normal sinus rhythm ST & T wave abnormality, consider lateral ischemia Abnormal ECG Confirmed by STEFANIE LEI, SUMA ([id number]), editor in chief DANIA FULLER ([id number]) on 03/06/2020 11:44:47 AM Referred By: NICK Confirmed By:SUMA WATTS MD
[2020-02-27] MEDS: Citalopram 20 MG Tablet PO (16:08)
[2020-02-27] MEDS: Tolterodine Tartrate 2 MG CAP.SA PO (16:09)
[2020-02-27] MEDS: Clopidogrel Bisulfate 75 MG Tablet PO (16:09)
[2020-02-27] MEDS: Pantoprazole Sodium 40 MG Tablet PO ×2 (16:11→21:27)
[2020-02-27] MEDS: Pramipexole Di-HCl 0.5 MG Tablet 1.5 MG PO ×2 (16:14→21:27)
[2020-02-27] MEDS: Midodrine HCl 5 MG Tablet PO ×2 (16:16→21:27)
[2020-02-27] MEDS: Albuterol 2.5 MG/3 ML VIAL.NEB. INHALATION (16:38)
[2020-02-27] MEDS: Acetaminophen 325 MG Tablet 650 MG PO (17:10)
[2020-02-27 17:40] LABS: Bedside Glucose 164 mg/dL (70-110)
[2020-02-27] MEDS: Furosemide 40 MG/4 ML Vial IV (17:54)
[2020-02-27] MEDS: 0.9% Saline Lock 10 ML Syringe IV ×2 (17:54→19:37)
[2020-02-27] MEDS: Sodium Ferric Gluconat 250 MG in 0.9% Normal Saline 250 ML 135 MG IV (19:37)
--- NOTE | 2020-02-27 20:01 | NURSING ---
Emergency charting in effect.
[2020-02-27] MEDS: Atorvastatin Calcium 40 MG Tablet PO (21:27)
[2020-02-27 21:36] LABS: Bedside Glucose 105 mg/dL (70-110)
[2020-02-27] MEDS: MELATONIN 3 MG TABLET PO (21:38)
[2020-02-27] MEDS: oxyCODONE 5 MG Tablet PO (21:38)
[2020-02-28] VITALS (20 sets, daily range): BP systolic 105–153; BP diastolic 50–98; PULSE 70–124; RESP 18–20; TEMP 36.6–37.4; O2SAT 88–96
[2020-02-28] MEDS: oxyCODONE 5 MG Tablet PO (04:30)
[2020-02-28] MEDS: Midodrine HCl 5 MG Tablet PO ×2 (05:43→22:16)
[2020-02-28] MEDS: Pramipexole Di-HCl 0.5 MG Tablet 1.5 MG PO ×2 (05:43→22:16)
[2020-02-28 06:16] LABS: Absolute Lymphocyte Count 0.92 X10^3/uL (0.83-4.51); Basophil# 0.04 X10^3/uL; Basophil% 0.5 % (0-1); Eosinophil# 0.25 X10^3/uL; Hematocrit 29.7 % (37-47); Hemoglobin 8.9 g/dL (12.0-15.0); Lymphocyte # 0.92 X10^3/ul (4.0); Mean Corpuscular Hgb 25.3 pg (27.0-32.0); Mean Corpuscular Volume 84.4 fL (81-99); Monocyte# 1.14 X10^3/uL; Monocyte% 13.6 % (0-10); NRBC Flagged by Analyzer 0.2 % (0-5); Neutrophil # 6.01 X10^3/uL (2.7-7.7); Neutrophil % 71.7 % (47-70); Platelet Count 341 K/mm3 (150-450); RBC Distribution Width CV 16.8 % (11.6-14.6); RBC Distribution Width SD 51.7 fl (35.1-43.9); Red Blood Count 3.52 M/mm3 (4.2-5.4); White Blood Count 8.4 K/mm3 (4.4-11.0)
[2020-02-28 06:38] LABS: Anion Gap 6 (5-15); BUN 35 mg/dL (7-18); BUN/Creat Ratio 26.1 RATIO (10-20); Chloride 102 mmol/L (98-107); Creatinine, Serum 1.34 mg/dL (0.55-1.02); EST Glomerular Filtration Rate 41 mL/min (>60); Est Glom Filt Rate - Afr Amer 49 mL/min (>60); Estimated Creatinine Clearance 27.37 ml/min; Glucose 89 mg/dL (74-106); Potassium 3.6 mmol/L (3.5-5.1); Sodium Level 140 mmol/L (136-145)
[2020-02-28 07:06] LABS: Bedside Glucose 90 mg/dL (70-110)
[2020-02-28] MEDS: Ipratropium/Albuterol Sulfate 3 ML AMPUL.NEB INHALATION ×2 (07:08→19:05)
[2020-02-28] MEDS: Metoprolol(XL)Succ 25 MG Tablet 12.5 MG PO (10:31)
[2020-02-28] MEDS: 0.9% Saline Lock 10 ML Syringe IV ×4 (10:32→18:21)
[2020-02-28] MEDS: Furosemide 40 MG/4 ML Vial IV ×2 (10:32→18:19)
[2020-02-28] MEDS: Clopidogrel Bisulfate 75 MG Tablet PO (10:35)
[2020-02-28] MEDS: Citalopram 20 MG Tablet PO (10:35)
[2020-02-28] MEDS: Tolterodine Tartrate 2 MG CAP.SA PO (10:35)
[2020-02-28] MEDS: Pantoprazole Sodium 40 MG Tablet PO ×2 (10:35→22:16)
--- NOTE | 2020-02-28 10:50 | NURSING ---
[facility] NOTIFIED OF ORDER FOR SPUTUN INDUCTION FOR SPECIMEN
[2020-02-28] MEDS: Sodium Ferric Gluconat 250 MG in 0.9% Normal Saline 250 ML 135 MG IV (11:47)
--- NOTE | 2020-02-28 11:54 | DCINST_ITS ---
- Discharge Diagnoses Current Active Problems: Current Active and Chronic Problems (Last Reviewed 02/26/20 @ 15:11 by Deyanira QUIJANO, PANbaC) CHF (congestive heart failure) (Acute) CAD (coronary artery disease) (Chronic) Morbid obesity (Chronic) COPD (chronic obstructive pulmonary disease) (Chronic) Diabetes (Chronic) Chronic respiratory failure with hypoxia (Chronic) Anemia (Acute) JESSICA (obstructive sleep apnea) (Chronic) History of coronary artery stent placement (Chronic 12/11/19) XWR-KNM-Eprhwc RCA 2000 and 2002; WLR-VCY-Ofce RCA 03/22/13; PCI-MUSHTAQ-Mid RCA w/ 3.5 x 12 mm Promus Synergy Stent 12/22/2017; VDY-MHE-Gwehzl LAD w/ 2.25 X 24 mm Promus Synergy and MUSHTAQ- Prox LAD w/ 3.5 X 24 mm Promus Synergy 01/20/2018; NZB-Tsfkuxadhdis-GTU-Mid RCA w/ 3.5 x 20 mm and 3.5 x 8 mm Synergy Stents 12/11/2019 Stenosis of right carotid artery (Chronic) RCEA 07/2014 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) stent the left subclavian with a 7 x 39 Poonam Essential (primary) hypertension (Chronic) Hyperlipidemia (Chronic) Nicotine dependence (Chronic) Allergies/Adverse Reactions: Allergies aspirin [ASA] Allergy (Severe, Verified 02/25/20 13:55) Hives bupropion [From Wellbutrin] Allergy (Verified 02/25/20 13:55) Unknown codeine Allergy (Verified 02/25/20 13:55) Hives meperidine HCl [From Demerol] Allergy (Verified 02/25/20 13:55) Hives naproxen sodium [From Anaprox] Allergy (Verified 02/25/20 13:55) Hives propoxyphene HCl [From Darvon] Allergy (Verified 02/25/20 13:55) Hives Sulfa (Sulfonamide Antibiotics) Allergy (Verified 02/25/20 13:55) hives, trouble breathing gabapentin Adverse Reaction (Intermediate, Verified 02/25/20 13:55) Mental status change, foggy headed NSAIDS (Non-Steroidal Anti-Inflamma Adverse Reaction (Verified 02/25/20 13:55) Hives Medications to take at Discharge Citalopram [Celexa] 20 mg PO DAILY 02/28/13 Montelukast [Singulair] 10 mg PO QHS PRN 07/08/14 Albuterol IH (ProAir) [Proair Hfa] 2 puff INHALATION Q6H PRN PRN 07/15/14 Atorvastatin Calcium [Lipitor] 40 mg PO QHS 08/17/18 Omeprazole 40 mg PO DAILY 08/17/18 metoprolol succinate 25 mg tablet,extended release 24 hr 12.5 mg PO DAILY tab 12/06/19 midodrine 5 mg tablet 5 mg PO Q8H tab 01/25/20 oxybutynin chloride 10 mg tablet,extended release 24 hr 10 mg PO DAILY 01/25/20 Albuterol Aerosols [Ventolin Aerosols] 2.5 mg INHALATION TID 02/11/20 nitroglycerin 0.4 mg sublingual tablet 0.4 mg SUBLINGUAL Q5M PRN #25 tab 02/11/20 Clopidogrel Bisulfate [Clopidogrel] 75 mg PO DAILY 02/25/20 Hydroxyzine HCl 25 mg PO QHS 02/25/20 Pramipexole Di-HCl [Mirapex] 1.5 mg PO TID 02/25/20 Loperamide [Imodium] 2 mg PO Q4H PRN PRN 02/26/20 Primary Care Physician: Vicente Raya III, MD [Primary Care Provider] - Test Results: Test results from this visit will be discussed in further detail at your follow- up appointment, if applicable. Please Follow Up With: Stephon Marcos NP, SPEECH AND LANGUAGE SPECIALIST-C
[2020-02-28 12:00] LABS: Bedside Glucose 107 mg/dL (70-110)
--- NOTE | 2020-02-28 12:05 | CASEMGMT ---
FADY spoke with patient as SW was told her family is worried about her going home. Patient said she feels too weak to go home. SW then said she is read for discharge today so she should go somewhere for rehab to get her stronger before going home. She contemplated this and then said she wants to go home. FADY told her to call her daughter and talk with her about what she thinks. She said she would do this. FADY told her SW will come back after lunch to see what they decided. FADY notified JENNIFER Morfin. Laney SIMS MSW
[2020-02-28] MEDS: proCHLORPERazine 10 MG/2 ML Vial 5 MG IV ×3 (12:47→22:15)
[2020-02-28] MEDS: Morphine 2 MG/ML Syringe 1 MG IV ×3 (12:48→22:15)
--- NOTE | 2020-02-28 12:58 | RAD_ITS ---
STUDY: X-RAY - ABDOMEN/PELVIS REASON FOR EXAM: Female, 79 years old. ABD PAIN TECHNIQUE: Single AP view of the abdomen / pelvis. COMPARISON: None. FINDINGS: Gas is seen throughout the small bowel as well as the colon. Ileus pattern should be. The visualized liver, spleen and kidneys are grossly normal in size and morphology. Normal soft tissue structures. There are diffuse degenerative changes of the visualized lumbar spine. Dextroscoliosis. RAD/Abdomen Single View (Portable) IMPRESSION: Findings suggestive of an ileus gas pattern. Electronically Signed: Emanuel Ventura, at 14:40 EST , Service support ,
--- NOTE | 2020-02-28 14:16 | PCM.PROGNOTE ---
<Shelbie Isaac MICROFICHE DUPLICATOR - Last Filed: 02/28/20 14:27> Patient Problems: Active and Suspected Problems (Last Reviewed 02/26/20 @ 15:11 by Deyanira QUIJANO PA-C) CHF (congestive heart failure) (Acute) Anemia (Acute) Subjective: Patient seen and examined. Received phone call from daughter expressing concern regarding patient returning home. Patient reports increased abdominal pain this afternoon. Daughter requesting further evaluation of abdominal pain prior to returning home. Patient denies nausea, vomiting. Having normal ostomy output. Nursing reports patient is dyspneic with minimal activity. Having burst of SVT. - Physical Exam Vitals/I&O's: Vital Signs Temp Pulse Resp BP Pulse Ox 97.8 F 116 H 20 H 140/50 H 88 02/28/20 08:30 02/28/20 12:31 02/28/20 08:33 02/28/20 08:30 02/28/20 10:55 Oxygen Flow Rate (L/min) [ 4 AMBULATION with Oxygen] Oxygen Flow Rate (L/min) 3 Oxygen Delivery Method Nasal Cannula Weight: 229 lb 8.019 oz Body Mass Index (BMI) 48.8 Finger Stick Blood Glucose 88 Intake and Output for Last 24 Hours 02/26/20 02/27/20 02/28/20 23:59 23:59 23:59 Intake Total 1760 / 1760 1190 / 1490 350 / 350 Output Total 2350 / 4250 3400 / 4050 850 / 850 Balance -590 / -2490 -2210 / -2560 -500 / -500 General: Alert, Oriented x3, Cooperative HEENT: Atraumatic, PERRLA, EOMI, Normocephalic Neck: Supple, No JVD, Negative Carotid Bruits Lungs: Clear to auscultation, Diminished Cardiovascular: No murmurs, Tachycardic Abdomen: Bowel Sounds Present, Soft, Non Tender, Non-Distended, Hernia, - - Ostomy intact Extremities: No clubbing, No cyanosis, No edema, Capillary Refill Less than 3 Seconds Skin: No rashes, No breakdown Musculoskeletal: No Tenderness to Palpation of Joints or Extremities Neurological: Cranial nerves II-XII grossly intact, Neuro grossly intact Psych/Mental Status: Normal Affect, Appropriate Microbiology Past 72 Hours 02/25/20 15:45 Blood Culture (Wb) #2 - Left Hand Blood Culture - Preliminary No growth in 48 hours. 02/25/20 15:34 Blood Culture (Wb) - Right Hand Blood Culture - Preliminary No growth in 48 hours. 02/26/20 00:50 Mucosa - Nasopharyngeal Respiratory Panel (PCR) - Final 02/25/20 20:50 Stool Stool Occult Blood (JOSE) - Final Occult Blood Positive Laboratory Results 02/27/20 14:15: Troponin I 0.041 02/27/20 17:34: Troponin I 0.030 02/27/20 17:38: POC Glucose 164 H 02/27/20 21:25: POC Glucose 105 02/28/20 05:25: WBC 8.4, RBC 3.52 L, Hgb 8.9 L, Hct 29.7 L, MCV 84.4, MCH 25.3 L, MCHC 30.0 L, RDW Std Deviation 51.7 H, RDW Coeff of Abiola 16.8 H, Plt Count 341, MPV 9.0, Immature Gran % (Auto) 0.200, Neut % (Auto) 71.7 H, Lymph % (Auto) 11.0 L, [place] % (Auto) 13.6 H, Eos % (Auto) 3.0, Baso % (Auto) 0.5, Absolute Neuts (auto) 6.0, Absolute Lymphs (auto) 0.92, Nucleated RBC % 0.2 02/28/20 05:25: Sodium 140, Potassium 3.6, Chloride 102, Carbon Dioxide 32.0, Anion Gap 6, BUN 35 H, Creatinine 1.34 H, Estim Creat Clear Calc 27.37, Est GFR (MDRD) Af Amer 49 L, Est GFR (MDRD) Non-Af 41 L, BUN/Creatinine Ratio 26.1 H, Glucose 89, Calcium 8.0 L 02/28/20 06:59: POC Glucose 90 02/28/20 11:52: POC Glucose 107 Current Medications Acetaminophen (Acetaminophen 325 Mg Tablet) 650 mg PO Q6H PRN PRN PRN Reason: Pain Score 1-10/Temp > 100.7 F Last Admin: 02/27/20 17:10 Dose: 650 mg Documented by: Al Hydroxide/Mg Hydroxide (Mag Hydrox/Al Hydrox/Simeth 30 Ml Udc) 30 ml PO Q6H PRN PRN PRN Reason: Gastric Burning Albuterol Sulfate (Albuterol 2.5 Mg/3 Ml Vial.Neb.) 2.5 mg INHALATION Q2H PRN PRN PRN Reason: Dyspnea, wheezing Last Admin: 02/27/20 16:38 Dose: 2.5 mg Documented by: Albuterol/Ipratropium (Ipratropium/Albuterol Sulfate 3 Ml Ampul.Neb) 3 ml INHALATION Q6HWA.RT [facility] Last Admin: 02/28/20 07:08 Dose: 3 ml Documented by: Atorvastatin Calcium (Atorvastatin Calcium 40 Mg Tablet) 40 mg PO QHS [facility] Last Admin: 02/27/20 21:27 Dose: 40 mg Documented by: Citalopram Hydrobromide (Citalopram 20 Mg Tablet) 20 mg PO DAILY [facility] Last Admin: 02/28/20 10:35 Dose: 20 mg Documented by: Clopidogrel Bisulfate (Clopidogrel Bisulfate 75 Mg Tablet) 75 mg PO DAILY [facility] Last Admin: 02/28/20 10:35 Dose: 75 mg Documented by: Dextrose (Dextrose 50%-Water 25 Gm/50 Ml Disp.Syrin) 0 gm IV X1 PRN; Protocol PRN Reason: Hypoglycemia Furosemide (Furosemide 40 Mg/4 Ml Vial) 40 mg IV BID@1000,1800 [facility] Last Admin: 02/28/20 10:32 Dose: 40 mg Documented by: Glucagon (Glucagon 1 Mg/Ml Syringe) 1 mg IM .X1 PRN PRN Reason: Hypoglycemia Guaifenesin (Guaifenesin 10 Ml Udc (200mg/10ml)) 20 ml PO Q4H PRN PRN PRN Reason: COUGH Hydralazine HCl (Hydralazine 20 Mg/Ml Vial) 10 mg IV Q4H PRN PRN PRN Reason: SBP > 160 Insulin Human Lispro (Insulin Lispro 100 Unit/Ml Insuln.Pen) 0 unit SC ACHS [facility]; Protocol Last Admin: 02/28/20 11:47 Dose: Not Given Documented by: Loperamide HCl (Loperamide 2 Mg Capsule) 2 mg PO Q4H PRN PRN PRN Reason: Diarrhea Magnesium Hydroxide (Magnesium Hydroxide 30 Ml Udc) 30 ml PO DAILY PRN PRN PRN Reason: Constipation Melatonin (Melatonin 3 Mg Tablet) 3 mg PO QHS PRN PRN PRN Reason: INSOMNIA Last Admin: 12/16/20 21:38 Dose: 3 mg Documented by: Metoprolol Succinate (Metoprolol(Xl)Succ 25 Mg Tablet) 12.5 mg PO DAILY [facility] Last Admin: 02/28/20 10:31 Dose: 12.5 mg Documented by: Midodrine (Midodrine Hcl 5 Mg Tablet) 5 mg PO Q8 [facility] Last Admin: 02/28/20 05:43 Dose: 5 mg Documented by: Montelukast Sodium (Montelukast 10 Mg Tablet) 10 mg PO QHS PRN PRN Reason: ALLERGIES Morphine Sulfate (Morphine 2 Mg/Ml Syringe) 1 mg IV Q3H PRN PRN PRN Reason: Pain Score 6-10 Last Admin: 02/28/20 12:48 Dose: 1 mg Documented by: Nitroglycerin (Nitroglycerin (Inpatient Use) 0.4 Mg Tab.Subl) 0.4 mg SUBLINGUAL Q5M PRN PRN Reason: CARDIAC/CHEST PAIN Ondansetron HCl (Ondansetron 4 Mg/2 Ml Vial) 4 mg IV Q8H PRN PRN PRN Reason: NAUSEA/VOMITING Last Admin: 02/26/20 18:21 Dose: 4 mg Documented by: Oxycodone HCl (Oxycodone 5 Mg Tablet) 5 mg PO Q6H PRN PRN PRN Reason: Pain Score 6-10 Last Admin: 02/28/20 04:30 Dose: 5 mg Documented by: Pantoprazole Sodium (Pantoprazole Sodium 40 Mg Tablet) 40 mg PO BID [facility] Last Admin: 02/28/20 10:35 Dose: 40 mg Documented by: Pramipexole Dihydrochloride (Pramipexole Di-Hcl 0.5 Mg Tablet) 1.5 mg PO TID [facility] Last Admin: 02/28/20 05:43 Dose: 1.5 mg Documented by: Prochlorperazine Edisylate (Prochlorperazine 10 Mg/2 Ml Vial) 5 mg IV Q4H PRN PRN PRN Reason: Breakthrough Nausea/Vomiting Last Admin: 02/28/20 12:47 Dose: 5 mg Documented by: Psyllium Hydrophilic Mucilloid (Psyllium 1 Packet) 1 packet PO DAILY PRN PRN PRN Reason: Constipation Senna/Docusate Sodium (Senna/Docusate Sodium 1 Tablet) 2 tablet PO BID PRN PRN PRN Reason: Constipation Sodium Chloride (0.9% Saline Lock 10 Ml Syringe) 10 - 40 ml IV UD PRN PRN Reason: SALINE FLUSH Last Admin: 02/28/20 12:49 Dose: 10 ml Documented by: Throat Lozenges (Benzocaine/Menthol 1 Lozenge) 1 lozenge MUCOUS MEM Q2H PRN PRN PRN Reason: SORE THROAT Tolterodine Tartrate (Tolterodine Tartrate 2 Mg Cap.Sa) 2 mg PO DAILY [facility] Last Admin: 02/28/20 10:35 Dose: 2 mg Documented by: Medical Necessity - Tobacco Use Smoking Status: Current every day smoker Tobacco Use: Cigarettes Assessment/Plan All Active Problems (Last Reviewed 02/26/20 @ 15:11 by Deyanira QUIJANO PANbaC) CHF (congestive heart failure) (Acute) Anemia (Acute) Influenza A (Resolved) 1. Acute on chronic hypoxic respiratory insufficiency secondary to acute on chronic heart failure with preserved ejection fraction-echocardiogram with EF 65%, mild to moderate mitral valve insufficiency. Continue IV Lasix. Strict I&O. Daily weight. Patient currently on home O2 baseline requirements. 2. Acute on chronic normocytic anemia-EGD unremarkable. Continue PPI empirically. Follow-up as needed with general surgery. Trend H&H. 3. CAD with history of recent stent 12/02/2019-continue Plavix, statin, metoprolol. 4. Chronic COPD-no exacerbation. As needed albuterol aerosol. 5. JESSICA-previously on BiPAP which was taken away due to noncompliance. BiPAP nightly. 6. Type 2 diabetes aatktuvm-Sonc-[id number] with sliding scale insulin. Diet controlled following prior gastric bypass. 7. Hernia- reducible. Ostomy intact. Follows with [facility]. Patient reports increased pain. KUB pending. 8. RLS-on Mirapex. 9. Tobacco dependence-encourage cessation. DVT prophylaxis-Lovenox subcu. DC planning: Daughter concerned with patient going home. KUB pending. Discharge later today versus tomorrow pending further discussion with patient and daughter. This patient was seen by ELIO Esposito under the supervision of Dr. Holbrook. <Casey Holbrook - Last Filed: 02/28/20 14:51> - Physical Exam Vitals/I&O's: Vital Signs Temp Pulse Resp BP Pulse Ox 97.8 F 88 20 H 115/75 95 02/28/20 12:30 02/28/20 14:00 02/28/20 14:00 02/28/20 12:30 02/28/20 14:00 Oxygen Flow Rate (L/min) [ 4 AMBULATION with Oxygen] Oxygen Flow Rate (L/min) 3 Oxygen Delivery Method Nasal Cannula Weight: 104.1 kg Body Mass Index (BMI) 48.8 Finger Stick Blood Glucose 88 Intake and Output for Last 24 Hours 02/26/20 02/27/20 02/28/20 23:59 23:59 23:59 Intake Total 1760 / 1760 1190 / 1490 650 / 650 Output Total 2350 / 4250 3400 / 4050 1450 / 1450 Balance -590 / -2490 -2210 / -2560 -800 / -800 Microbiology Past 72 Hours 02/25/20 15:45 Blood Culture (Wb) #2 - Left Hand Blood Culture - Preliminary No growth in 48 hours. 02/25/20 15:34 Blood Culture (Wb) - Right Hand Blood Culture - Preliminary No growth in 48 hours. 02/26/20 00:50 Mucosa - Nasopharyngeal Respiratory Panel (PCR) - Final 02/25/20 20:50 Stool Stool Occult Blood (JOSE) - Final Occult Blood Positive Laboratory Results 02/27/20 14:15: Troponin I 0.041 02/27/20 17:34: Troponin I 0.030 02/27/20 17:38: POC Glucose 164 H 02/27/20 21:25: POC Glucose 105 02/28/20 05:25: WBC 8.4, RBC 3.52 L, Hgb 8.9 L, Hct 29.7 L, MCV 84.4, MCH 25.3 L, MCHC 30.0 L, RDW Std Deviation 51.7 H, RDW Coeff of Abiola 16.8 H, Plt Count 341, MPV 9.0, Immature Gran % (Auto) 0.200, Neut % (Auto) 71.7 H, Lymph % (Auto) 11.0 L, [place] % (Auto) 13.6 H, Eos % (Auto) 3.0, Baso % (Auto) 0.5, Absolute Neuts (auto) 6.0, Absolute Lymphs (auto) 0.92, Nucleated RBC % 0.2 12/17/20 05:25: Sodium 140, Potassium 3.6, Chloride 102, Carbon Dioxide 32.0, Anion Gap 6, BUN 35 H, Creatinine 1.34 H, Estim Creat Clear Calc 27.37, Est GFR (MDRD) Af Amer 49 L, Est GFR (MDRD) Non-Af 41 L, BUN/Creatinine Ratio 26.1 H, Glucose 89, Calcium 8.0 L 02/28/20 06:59: POC Glucose 90 02/28/20 11:52: POC Glucose 107 Current Medications Acetaminophen (Acetaminophen 325 Mg Tablet) 650 mg PO Q6H PRN PRN PRN Reason: Pain Score 1-10/Temp > 100.7 F Last Admin: 02/27/20 17:10 Dose: 650 mg Documented by: Al Hydroxide/Mg Hydroxide (Mag Hydrox/Al Hydrox/Simeth 30 Ml Udc) 30 ml PO Q6H PRN PRN PRN Reason: Gastric Burning Albuterol Sulfate (Albuterol 2.5 Mg/3 Ml Vial.Neb.) 2.5 mg INHALATION Q2H PRN PRN PRN Reason: Dyspnea, wheezing Last Admin: 02/27/20 16:38 Dose: 2.5 mg Documented by: Albuterol/Ipratropium (Ipratropium/Albuterol Sulfate 3 Ml Ampul.Neb) 3 ml INHALATION Q6HWA.RT [facility] Last Admin: 02/28/20 07:08 Dose: 3 ml Documented by: Atorvastatin Calcium (Atorvastatin Calcium 40 Mg Tablet) 40 mg PO QHS [facility] Last Admin: 02/27/20 21:27 Dose: 40 mg Documented by: Citalopram Hydrobromide (Citalopram 20 Mg Tablet) 20 mg PO DAILY [facility] Last Admin: 02/28/20 10:35 Dose: 20 mg Documented by: Clopidogrel Bisulfate (Clopidogrel Bisulfate 75 Mg Tablet) 75 mg PO DAILY [facility] Last Admin: 02/28/20 10:35 Dose: 75 mg Documented by: Dextrose (Dextrose 50%-Water 25 Gm/50 Ml Disp.Syrin) 0 gm IV X1 PRN; Protocol PRN Reason: Hypoglycemia Furosemide (Furosemide 40 Mg/4 Ml Vial) 40 mg IV BID@1000,1800 [facility] Last Admin: 02/28/20 10:32 Dose: 40 mg Documented by: Glucagon (Glucagon 1 Mg/Ml Syringe) 1 mg IM .X1 PRN PRN Reason: Hypoglycemia Guaifenesin (Guaifenesin 10 Ml Udc (200mg/10ml)) 20 ml PO Q4H PRN PRN PRN Reason: COUGH Hydralazine HCl (Hydralazine 20 Mg/Ml Vial) 10 mg IV Q4H PRN PRN PRN Reason: SBP > 160 Insulin Human Lispro (Insulin Lispro 100 Unit/Ml Insuln.Pen) 0 unit SC [facility]; Protocol Last Admin: 02/28/20 11:47 Dose: Not Given Documented by: Loperamide HCl (Loperamide 2 Mg Capsule) 2 mg PO Q4H PRN PRN PRN Reason: Diarrhea Magnesium Hydroxide (Magnesium Hydroxide 30 Ml Udc) 30 ml PO DAILY PRN PRN PRN Reason: Constipation Melatonin (Melatonin 3 Mg Tablet) 3 mg PO QHS PRN PRN PRN Reason: INSOMNIA Last Admin: 02/27/20 21:38 Dose: 3 mg Documented by: Metoprolol Succinate (Metoprolol(Xl)Succ 25 Mg Tablet) 25 mg PO DAILY [facility] Midodrine (Midodrine Hcl 5 Mg Tablet) 5 mg PO Q8 [facility] Last Admin: 02/28/20 05:43 Dose: 5 mg Documented by: Montelukast Sodium (Montelukast 10 Mg Tablet) 10 mg PO QHS PRN PRN Reason: ALLERGIES Morphine Sulfate (Morphine 2 Mg/Ml Syringe) 1 mg IV Q3H PRN PRN PRN Reason: Pain Score 6-10 Last Admin: 02/28/20 12:48 Dose: 1 mg Documented by: Nitroglycerin (Nitroglycerin (Inpatient Use) 0.4 Mg Tab.Subl) 0.4 mg SUBLINGUAL Q5M PRN PRN Reason: CARDIAC/CHEST PAIN Ondansetron HCl (Ondansetron 4 Mg/2 Ml Vial) 4 mg IV Q8H PRN PRN PRN Reason: NAUSEA/VOMITING Last Admin: 02/26/20 18:21 Dose: 4 mg Documented by: Oxycodone HCl (Oxycodone 5 Mg Tablet) 5 mg PO Q6H PRN PRN PRN Reason: Pain Score 6-10 Last Admin: 02/28/20 04:30 Dose: 5 mg Documented by: Pantoprazole Sodium (Pantoprazole Sodium 40 Mg Tablet) 40 mg PO BID [facility] Last Admin: 02/28/20 10:35 Dose: 40 mg Documented by: Pramipexole Dihydrochloride (Pramipexole Di-Hcl 0.5 Mg Tablet) 1.5 mg PO TID [facility] Last Admin: 02/28/20 05:43 Dose: 1.5 mg Documented by: Prochlorperazine Edisylate (Prochlorperazine 10 Mg/2 Ml Vial) 5 mg IV Q4H PRN PRN PRN Reason: Breakthrough Nausea/Vomiting Last Admin: 02/28/20 12:47 Dose: 5 mg Documented by: Psyllium Hydrophilic Mucilloid (Psyllium 1 Packet) 1 packet PO DAILY PRN PRN PRN Reason: Constipation Senna/Docusate Sodium (Senna/Docusate Sodium 1 Tablet) 2 tablet PO BID PRN PRN PRN Reason: Constipation Sodium Chloride (0.9% Saline Lock 10 Ml Syringe) 10 - 40 ml IV UD PRN PRN Reason: SALINE FLUSH Last Admin: 02/28/20 12:49 Dose: 10 ml Documented by: Throat Lozenges (Benzocaine/Menthol 1 Lozenge) 1 lozenge MUCOUS MEM Q2H PRN PRN PRN Reason: SORE THROAT Tolterodine Tartrate (Tolterodine Tartrate 2 Mg Cap.Sa) 2 mg PO DAILY [facility] Last Admin: 02/28/20 10:35 Dose: 2 mg Documented by: Assessment/Plan This patient was seen in conjunction with ELIO Esposito . I have independently interviewed and examined the patient and reviewed pertinent historical, laboratory, and other data. Please refer to ELIO Esposito note for details of this patient's presentation, findings, and recommendations. I have reviewed ELIO Esposito note and concur with documented findings. In brief, patient is a 79-year-old lady with multiple comorbidities admitted with progressive shortness of breath and assessment of acute hypoxic respiratory insufficiency secondary to congestive heart failure with preserved ejection fraction made. Patient was also found to have significant anemia and was transfused with 1 unit PRBC 02/27/2020; patient seen denies any further melenic stools. Patient is scheduled to undergo EGD by Dr. Roth 02/28/2020 patient did have runs of SVTs. KUB demonstrated ileus pattern. Decision to discharge patient placed on hold patient observed for 1 additional night Physical Examination: GENERAL: cooperative HEENT: Atraumatic; EYES; Anicteric, Normal Conjunctiva NECK; supple, normal thyroid, RESPIRATORY: Diminished to auscultation CARDIOVASCULAR: Regular S1 S2, GI: soft, normoactive bowel sounds, : No Renal angle tenderness; EXTREMITIES: edema, no clubbing, MUSCULOSKELETAL: no muscle waisting NEURO: Awake; no lateralizing signs. SKIN: No Rash PSYCH; Flat affect Assessment: 1. Acute hypoxic respiratory insufficiency 2. Congestive heart failure with preserved ejection fraction 3. Acute anemia?anemia secondary to anemia of chronic disorder 4. Obesity with BMI of 48.8 5. Diabetes mellitus type 2 6. Restless leg syndrome 1. Coronary artery disease 8. COPD 9. Obstructive sleep apnea 10. Tobacco dependence 11. Ileus 12DVT prophylaxis Recommendations: 1. I have discussed the results of my overview and impressions with the patient 2. Options for management were reviewed Inpatient E&M: 76141 Subs Hosp L2
--- NOTE | 2020-02-28 14:49 | NURSING ---
ATTEMPT TO SIT PT UP NOT TOLERATED WELL, HEART RATE JUMPED TO 140 AND WAS SELF LIMITING, METOPROLOL INCREASED-PT STATES SHE SOMETIMES SEES WHOLE PILLS IN HER OSTOMY BAG-WILL NOTIFY PHYSICIANS
[2020-02-28] MEDS: Metoprolol Tartrate 25 MG Tablet 12.5 MG PO (14:55)
--- NOTE | 2020-02-28 18:48 | NURSING ---
PT CONTINUES TO HAVE RIGHT SIDED ABDOMINAL PAIN-2ND DOSE OF MORPHINE 1 MG AND COMPAZINE FOR NAUSEA-MORPHINE IS EFFECTIVE BUT PRIOR TO HER CALLING OUT, PT CAN BE HEARD MOANING IN PAIN IN ROOM, WHEN ASKED SHE SAID PAIN IS 9-10/10-PT IS AWARE SHE CAN ASK FOR BOTH LATER TONIGHT IF HAVING EITHER SYMPTOM-PT STATES PAIN BECOMES SO BAD THAT THEN SHE DRY HEAVES-THERE HAS BEEN SOFT, NON FORMED BROWN STOOL NOTED
[2020-02-28 21:46] LABS: Bedside Glucose 121 mg/dL (70-110)
[2020-02-28 21:46] LABS: Bedside Glucose 103 mg/dL (70-110)
[2020-02-28] MEDS: Atorvastatin Calcium 40 MG Tablet PO (22:16)
[2020-02-29] VITALS (15 sets, daily range): BP systolic 81–110; BP diastolic 39–64; PULSE 67–110; RESP 16–20; TEMP 36.4–36.9; O2SAT 75–98
[2020-02-29] MEDS: Ipratropium/Albuterol Sulfate 3 ML AMPUL.NEB INHALATION ×2 (07:08→19:28)
--- NOTE | 2020-02-29 07:36 | PN.SURG_ITS ---
Patient Problems: Active and Suspected Problems (Last Reviewed 02/26/20 @ 15:11 by Deyanira QUIJANO, PANbaC) CHF (congestive heart failure) (Acute) Anemia (Acute) Subjective: Patient reports had a large amount out of her ileostomy and after that happened she is started feeling better with no abdominal pain. Currently she said she is not having any abdominal pain she feels like she is at her baseline. - Physical Exam Vitals/I&O's: Vital Signs Temp Pulse Resp BP Pulse Ox 98.5 F 71 18 103/63 95 02/29/20 03:00 02/29/20 04:00 02/29/20 03:00 02/29/20 03:00 02/29/20 03:00 Oxygen Flow Rate (L/min) [ 4 AMBULATION with Oxygen] Oxygen Flow Rate (L/min) 3 Oxygen Delivery Method Nasal Cannula Weight: 224 lb 3.362 oz Body Mass Index (BMI) 48.8 Finger Stick Blood Glucose 88 Intake and Output for Last 24 Hours 02/27/20 02/28/20 02/29/20 23:59 23:59 23:59 Intake Total 1190 / 1490 950 / 950 Output Total 3400 / 4050 2550 / 3200 650 / 650 Balance -2210 / -2560 -1600 / -2250 -650 / -650 General: Alert, Oriented x3 Cardiovascular: Regular rate, Regular Rhythm Abdomen: Soft, Non Tender, Non-Distended Microbiology Past 72 Hours 02/28/20 13:05 Sputum, Expectorated/Coughed Gram Stain - Final 02/25/20 15:45 Blood Culture (Wb) #2 - Left Hand Blood Culture - Preliminary No growth in 48 hours. 02/25/20 15:34 Blood Culture (Wb) - Right Hand Blood Culture - Preliminary No growth in 48 hours. 02/26/20 00:50 Mucosa - Nasopharyngeal Respiratory Panel (PCR) - Final Laboratory Results 02/28/20 11:52: POC Glucose 107 02/28/20 17:06: POC Glucose 121 H 02/28/20 21:36: POC Glucose 103 Current Medications Acetaminophen (Acetaminophen 325 Mg Tablet) 650 mg PO Q6H PRN PRN PRN Reason: Pain Score 1-10/Temp > 100.7 F Last Admin: 02/27/20 17:10 Dose: 650 mg Documented by: Al Hydroxide/Mg Hydroxide (Mag Hydrox/Al Hydrox/Simeth 30 Ml Udc) 30 ml PO Q6H PRN PRN PRN Reason: Gastric Burning Albuterol Sulfate (Albuterol 2.5 Mg/3 Ml Vial.Neb.) 2.5 mg INHALATION Q2H PRN PRN PRN Reason: Dyspnea, wheezing Last Admin: 02/27/20 16:38 Dose: 2.5 mg Documented by: Albuterol/Ipratropium (Ipratropium/Albuterol Sulfate 3 Ml Ampul.Neb) 3 ml INHALATION Q6HWA.RT [facility] Last Admin: 02/29/20 07:08 Dose: 3 ml Documented by: Atorvastatin Calcium (Atorvastatin Calcium 40 Mg Tablet) 40 mg PO QHS [facility] Last Admin: 02/28/20 22:16 Dose: 40 mg Documented by: Citalopram Hydrobromide (Citalopram 20 Mg Tablet) 20 mg PO DAILY [facility] Last Admin: 02/28/20 10:35 Dose: 20 mg Documented by: Clopidogrel Bisulfate (Clopidogrel Bisulfate 75 Mg Tablet) 75 mg PO DAILY [facility] Last Admin: 02/28/20 10:35 Dose: 75 mg Documented by: Dextrose (Dextrose 50%-Water 25 Gm/50 Ml Disp.Syrin) 0 gm IV X1 PRN; Protocol PRN Reason: Hypoglycemia Furosemide (Furosemide 40 Mg/4 Ml Vial) 40 mg IV BID@1000,1800 [facility] Last Admin: 02/28/20 18:19 Dose: 40 mg Documented by: Glucagon (Glucagon 1 Mg/Ml Syringe) 1 mg IM .X1 PRN PRN Reason: Hypoglycemia Guaifenesin (Guaifenesin 10 Ml Udc (200mg/10ml)) 20 ml PO Q4H PRN PRN PRN Reason: COUGH Hydralazine HCl (Hydralazine 20 Mg/Ml Vial) 10 mg IV Q4H PRN PRN PRN Reason: SBP > 160 Insulin Human Lispro (Insulin Lispro 100 Unit/Ml Insuln.Pen) 0 unit SC ACHS [facility]; Protocol Last Admin: 02/28/20 23:55 Dose: Not Given Documented by: Loperamide HCl (Loperamide 2 Mg Capsule) 2 mg PO Q4H PRN PRN PRN Reason: Diarrhea Magnesium Hydroxide (Magnesium Hydroxide 30 Ml Udc) 30 ml PO DAILY PRN PRN PRN Reason: Constipation Melatonin (Melatonin 3 Mg Tablet) 3 mg PO QHS PRN PRN PRN Reason: INSOMNIA Last Admin: 02/27/20 21:38 Dose: 3 mg Documented by: Metoprolol Succinate (Metoprolol(Xl)Succ 25 Mg Tablet) 25 mg PO DAILY [facility] Midodrine (Midodrine Hcl 5 Mg Tablet) 5 mg PO Q8 [facility] Last Admin: 02/28/20 22:16 Dose: 5 mg Documented by: Montelukast Sodium (Montelukast 10 Mg Tablet) 10 mg PO QHS PRN PRN Reason: ALLERGIES Morphine Sulfate (Morphine 2 Mg/Ml Syringe) 1 mg IV Q3H PRN PRN PRN Reason: Pain Score 6-10 Last Admin: 02/28/20 22:15 Dose: 1 mg Documented by: Nitroglycerin (Nitroglycerin (Inpatient Use) 0.4 Mg Tab.Subl) 0.4 mg SUBLINGUAL Q5M PRN PRN Reason: CARDIAC/CHEST PAIN Ondansetron HCl (Ondansetron 4 Mg/2 Ml Vial) 4 mg IV Q8H PRN PRN PRN Reason: NAUSEA/VOMITING Last Admin: 02/26/20 18:21 Dose: 4 mg Documented by: Oxycodone HCl (Oxycodone 5 Mg Tablet) 5 mg PO Q6H PRN PRN PRN Reason: Pain Score 6-10 Last Admin: 02/28/20 04:30 Dose: 5 mg Documented by: Pantoprazole Sodium (Pantoprazole Sodium 40 Mg Tablet) 40 mg PO BID [facility] Last Admin: 02/28/20 22:16 Dose: 40 mg Documented by: Pramipexole Dihydrochloride (Pramipexole Di-Hcl 0.5 Mg Tablet) 1.5 mg PO TID [facility] Last Admin: 02/28/20 22:16 Dose: 1.5 mg Documented by: Prochlorperazine Edisylate (Prochlorperazine 10 Mg/2 Ml Vial) 5 mg IV Q4H PRN PRN PRN Reason: Breakthrough Nausea/Vomiting Last Admin: 02/28/20 22:15 Dose: 5 mg Documented by: Psyllium Hydrophilic Mucilloid (Psyllium 1 Packet) 1 packet PO DAILY PRN PRN PRN Reason: Constipation Senna/Docusate Sodium (Senna/Docusate Sodium 1 Tablet) 2 tablet PO BID PRN PRN PRN Reason: Constipation Sodium Chloride (0.9% Saline Lock 10 Ml Syringe) 10 - 40 ml IV UD PRN PRN Reason: SALINE FLUSH Last Admin: 02/28/20 18:21 Dose: 10 ml Documented by: Throat Lozenges (Benzocaine/Menthol 1 Lozenge) 1 lozenge MUCOUS MEM Q2H PRN PRN PRN Reason: SORE THROAT Tolterodine Tartrate (Tolterodine Tartrate 2 Mg Cap.Sa) 2 mg PO DAILY [facility] Last Admin: 02/28/20 10:35 Dose: 2 mg Documented by: Medical Necessity - Tobacco Use Smoking Status: Current every day smoker Tobacco Use: Cigarettes Assessment/Plan All Active Problems (Last Reviewed 02/26/20 @ 15:11 by Deyanira QUIJANO PA-C) CHF (congestive heart failure) (Acute) Anemia (Acute) Influenza A (Resolved) 79-year-old female with abdominal pain and positive fecal occult blood 1. Patient had an EGD 2 days ago which showed no obvious sign of ulceration at the anastomosis or bleeding. Patient does not have a colon and has an ileostomy. Hemoglobin appears stable. The patient is having a lot of abdominal pain yesterday and does have 2 active hernias which will be repaired by the [facility] when she is several months out from her heart stents. Currently the patient is not having any abdominal pain and plans to be discharged today. 2. I do recommend continuing PPI for least a month in case there was an ulcer I was unable to identify and I continue to recommend that the patient stop smoking. Hamilton Roth MD Pager: [facility] [address] [place] [address] [address] [place] [address] Office:
[2020-02-29 08:14] LABS: Hematocrit 31.6 % (37-47); Hemoglobin 9.1 g/dL (12.0-15.0); Mean Corp Hgb Conc 28.8 g/dL (32-36); Mean Corpuscular Hgb 24.5 pg (27.0-32.0); Mean Corpuscular Volume 84.9 fL (81-99); Mean Platelet Vol. 8.8 fl (6.2-12.0); Platelet Count 354 K/mm3 (150-450); RBC Distribution Width CV 17.2 % (11.6-14.6); RBC Distribution Width SD 52.2 fl (35.1-43.9); Red Blood Count 3.72 M/mm3 (4.2-5.4); White Blood Count 7.9 K/mm3 (4.4-11.0)
[2020-02-29] MEDS: Pramipexole Di-HCl 0.5 MG Tablet 1.5 MG PO ×3 (08:32→23:25)
[2020-02-29 08:33] LABS: Anion Gap 3 (5-15); BUN 33 mg/dL (7-18); BUN/Creat Ratio 23.1 RATIO (10-20); Calcium,Total 8.6 mg/dL (8.5-10.1); Chloride 101 mmol/L (98-107); Creatinine, Serum 1.43 mg/dL (0.55-1.02); EST Glomerular Filtration Rate 38 mL/min (>60); Est Glom Filt Rate - Afr Amer 46 mL/min (>60); Estimated Creatinine Clearance 25.64 ml/min; Glucose 76 mg/dL (74-106); Potassium 3.6 mmol/L (3.5-5.1); Sodium Level 139 mmol/L (136-145)
[2020-02-29] MEDS: Clopidogrel Bisulfate 75 MG Tablet PO (08:33)
[2020-02-29] MEDS: Tolterodine Tartrate 2 MG CAP.SA PO (08:33)
[2020-02-29] MEDS: Citalopram 20 MG Tablet PO (08:33)
[2020-02-29] MEDS: Midodrine HCl 5 MG Tablet PO ×3 (08:33→23:26)
[2020-02-29] MEDS: Pantoprazole Sodium 40 MG Tablet PO ×2 (08:39→23:26)
[2020-02-29] MEDS: Furosemide 40 MG/4 ML Vial IV (08:40)
--- NOTE | 2020-02-29 10:54 | CASEMGMT ---
Addendum entered by Nidhi Sanchez 02/29/20 14:06: Per Alyce TIMMONS, pt needs 3L at rest and 4L w/ exertion at this time instead of her 2L continuous for home oxygen. New order faxed to [facility] at this time and call to [facility] to notify. Pt voices no further questions/concerns/needs at this time. Loan TIMMONS CM Original Note: This RN CM to room to discuss discharge planning with pt at this time. Pt states no concerns with going home at time of discharge and declines the need for HHC or OP therapy at this time. Pt aware can call PCP once home if she changes her mind regarding further therapy. Pt's home order for oxygen is 2L continuous and pt is currently on 3L at this time. Pt to be tested on 2L continuous at rest and with ambulation prior to discharge. Pt voices no need for any further discharge planning/needs. Loan TIMMONS CM
--- NOTE | 2020-02-29 11:18 | CASEMGMT ---
SW met with patient and explained Palliative Care. She was open to SW making a referral. SW faxed referral and also left a voice mail letting them know about referral and also asked them to only talk with patient initially as SW did not talk with family about the referral. Laney SIMS MSW
--- NOTE | 2020-02-29 11:33 | DCINST_ITS ---
- Discharge Diagnoses Current Active Problems: Current Active and Chronic Problems (Last Reviewed 02/26/20 @ 15:11 by Deyanira QUIJANO PANbaC) CHF (congestive heart failure) (Acute) CAD (coronary artery disease) (Chronic) Morbid obesity (Chronic) COPD (chronic obstructive pulmonary disease) (Chronic) Diabetes (Chronic) Chronic respiratory failure with hypoxia (Chronic) Anemia (Acute) JESSICA (obstructive sleep apnea) (Chronic) History of coronary artery stent placement (Chronic 12/11/19) [id number] RCA 2000 and 2002; SNW-CWD-Uumt RCA 03/22/13; PCI-MUSHTAQ-Mid RCA w/ 3.5 x 12 mm Promus Synergy Stent 12/22/2017; CSG-JSD-Lagaut LAD w/ 2.25 X 24 mm Promus Synergy and MUSHTAQ- Prox LAD w/ 3.5 X 24 mm Promus Synergy 01/20/2018; YED-Cwdgoyuipscz-FPE-Mid RCA w/ 3.5 x 20 mm and 3.5 x 8 mm Synergy Stents 12/11/2019 Stenosis of right carotid artery (Chronic) RCEA 07/2014 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) stent the left subclavian with a 7 x 39 [place] Essential (primary) hypertension (Chronic) Hyperlipidemia (Chronic) Nicotine dependence (Chronic) You will use the following diet at home:: Calorie/Carbohydrate Controlled (specify 1200, 1400, etc), Cardiac Discharge Activity: Return to Normal Activity Call your doctor if you observe: Shortness of breath, Dizziness, Fainting spells, Chest pain Allergies/Adverse Reactions: Allergies aspirin [ASA] Allergy (Severe, Verified 02/25/20 13:55) Hives bupropion [From Wellbutrin] Allergy (Verified 02/25/20 13:55) Unknown codeine Allergy (Verified 02/25/20 13:55) Hives meperidine HCl [From Demerol] Allergy (Verified 02/25/20 13:55) Hives naproxen sodium [From Anaprox] Allergy (Verified 02/25/20 13:55) Hives propoxyphene HCl [From Darvon] Allergy (Verified 02/25/20 13:55) Hives Sulfa (Sulfonamide Antibiotics) Allergy (Verified 02/25/20 13:55) hives, trouble breathing gabapentin Adverse Reaction (Intermediate, Verified 02/25/20 13:55) Mental status change, foggy headed NSAIDS (Non-Steroidal Anti-Inflamma Adverse Reaction (Verified 02/25/20 13:55) Hives Medications to take at Discharge Citalopram [Celexa] 20 mg PO DAILY 02/28/13 Montelukast [Singulair] 10 mg PO QHS PRN 07/08/14 Albuterol IH (ProAir) [Proair Hfa] 2 puff INHALATION Q6H PRN PRN 07/15/14 Atorvastatin Calcium [Lipitor] 40 mg PO QHS 08/17/18 metoprolol succinate 25 mg tablet,extended release 24 hr 12.5 mg PO DAILY tab 12/06/19 midodrine 5 mg tablet 5 mg PO Q8H tab 01/25/20 oxybutynin chloride 10 mg tablet,extended release 24 hr 10 mg PO DAILY 01/25/20 Albuterol Aerosols [Ventolin Aerosols] 2.5 mg INHALATION TID 02/11/20 nitroglycerin 0.4 mg sublingual tablet 0.4 mg SUBLINGUAL Q5M PRN #25 tab 02/11/20 Clopidogrel Bisulfate [Clopidogrel] 75 mg PO DAILY 02/25/20 Hydroxyzine HCl 25 mg PO QHS 02/25/20 Pramipexole Di-HCl [Mirapex] 1.5 mg PO TID 02/25/20 Loperamide [Imodium] 2 mg PO Q4H PRN PRN 02/26/20 Furosemide [Lasix] 40 mg PO DAILY #30 tab 02/29/20 Pantoprazole Sodium [Protonix] 40 mg PO BID #60 tab 02/29/20 The following prescriptions were given: Furosemide [Lasix] 40 mg PO DAILY #30 tab Transmission Status: Pending to [facility] Pantoprazole Sodium [Protonix] 40 mg PO BID #60 tab Transmission Status: Pending to [facility] Primary Care Physician: Vicente Raya III, MD [Primary Care Provider] - Please follow up with your Primary Care Physician in: 1 Week Test Results: Test results from this visit will be discussed in further detail at your follow- up appointment, if applicable. Please Follow Up With: Marisela Barry PA When: As scheduled 03/11/2020 Please Follow Up With: [facility] When: Call for follow up Proposed Discharge Date: 02/29/20
--- NOTE | 2020-02-29 12:11 | PHA.DC.MC ---
Pharmacy Service has performed discharge medication reconciliation and counseling for this patient. 1. FUROSEMIDE 40MG PO DAILY 2. PANTOPRAZOLE 40MG PO BID The patient's discharge medication list was reviewed for discrepancies and discrepancies were resolved. Home Medications Citalopram [Celexa] 20 mg PO DAILY 02/28/13 Montelukast [Singulair] 10 mg PO QHS PRN 07/08/14 Albuterol IH (ProAir) [Proair Hfa] 2 puff INHALATION Q6H PRN PRN 07/15/14 Atorvastatin Calcium [Lipitor] 40 mg PO QHS 08/17/18 metoprolol succinate 25 mg tablet,extended release 24 hr 12.5 mg PO DAILY tab 12/06/19 midodrine 5 mg tablet 5 mg PO Q8H tab 01/25/20 oxybutynin chloride 10 mg tablet,extended release 24 hr 10 mg PO DAILY 01/25/20 Albuterol Aerosols [Ventolin Aerosols] 2.5 mg INHALATION TID 02/11/20 nitroglycerin 0.4 mg sublingual tablet 0.4 mg SUBLINGUAL Q5M PRN #25 tab 02/11/20 Clopidogrel Bisulfate [Clopidogrel] 75 mg PO DAILY 02/25/20 Hydroxyzine HCl 25 mg PO QHS 02/25/20 Pramipexole Di-HCl [Mirapex] 1.5 mg PO TID 02/25/20 Loperamide [Imodium] 2 mg PO Q4H PRN PRN 02/26/20 Furosemide [Lasix] 40 mg PO DAILY #30 tab 02/29/20 Pantoprazole Sodium [Protonix] 40 mg PO BID #60 tab 02/29/20 The patient was counseled on the following discharge medications and changes in medications for homegoing were reviewed. The Reason for Use, instructions for use, and potential side effects were reviewed for all new medications. The patient's questions regarding all of their medications were answered. The patient was able to verbally demonstrate an understanding of their discharge medications.
--- NOTE | 2020-02-29 12:14 | DS.PCM_ITS ---
<Shelbie Isaac ORTHO RN - Last Filed: 02/29/20 12:31> Discharge Date and Diagnosis - Problem List Patient Problems: Active and Suspected Problems (Last Reviewed 02/26/20 @ 15:11 by Deyanira QUIJANO, MACIE-C) CHF (congestive heart failure) (Acute) Anemia (Acute) Date of Admission: 02/25/20 Date of Discharge: 02/29/20 - Primary Discharge Diagnosis Acute Problems: Active Problems (Last Reviewed 02/26/20 @ 15:11 by Deyanira QUIJANO PA-C) 1. Acute on chronic hypoxic respiratory insufficiency secondary to acute on chronic heart failure with preserved ejection fraction 2. Acute on chronic normocytic anemia 3. CAD with history of recent stent 12/02/2019 4. Chronic COPD 5. JESSICA 6. Type 2 diabetes mellitus 7. Hernia 8. RLS 9. Tobacco dependence - Secondary Discharge Diagnosis Chronic Problems: Chronic Problems (Last Reviewed 02/26/20 @ 15:11 by MACIE Alford-C) CAD (coronary artery disease) (Chronic) Morbid obesity (Chronic) COPD (chronic obstructive pulmonary disease) (Chronic) Diabetes (Chronic) Chronic respiratory failure with hypoxia (Chronic) JESSICA (obstructive sleep apnea) (Chronic) Atherosclerosis of coronary artery of [place] heart without angina pectoris (Chronic) History of coronary artery stent placement (Chronic 12/11/19) [id number]-Pdivyl RCA 2000 and 2002; NNY-MHI-Icsf RCA 03/22/13; PCI-MUSHTAQ-Mid RCA w/ 3.5 x 12 mm Promus Synergy Stent 12/22/2017; PNP-WQH-Yjiftn LAD w/ 2.25 X 24 mm Promus Synergy and MUSHTAQ- Prox LAD w/ 3.5 X 24 mm Promus Synergy 01/20/2018; LDP-Turyiscaaboi-GII-Mid RCA w/ 3.5 x 20 mm and 3.5 x 8 mm Synergy Stents 12/11/2019 Stenosis of right carotid artery (Chronic) RCEA 07/2014 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 Electronically Signed: Emanuel Ventura, at 15:22 EST , Service support , KUB X-Ray 02/28/20 12:58 IMPRESSION: Findings suggestive of an ileus gas pattern. Electronically Signed: Emanuel Ventura, at 14:40 EST , Service support , Dr. Roth- General surgery Operations: None Procedures: 2-D Echocardiogram, EGD Summary of Care Provided: The patient is a 79 year old F admitted 02/25/2020 due to shortness of breath. 1. Acute on chronic hypoxic respiratory insufficiency secondary to acute on chronic heart failure with preserved ejection fraction-echocardiogram with EF 65%, mild to moderate mitral valve insufficiency. IV Lasix during admission. Patient will require increase in baseline home O2 requirements, previously on 2 L continuously and will be discharged on 3 L continuously. She is ambulatory in the home. Discharged on Lasix 40 mg daily. Patient has upcoming follow-up with cardiology 03/11/2020. 2. Acute on chronic normocytic anemia-EGD unremarkable. Continue PPI empirically. Follow-up as needed with general surgery. Hemoglobin stable. 3. CAD with history of recent stent 12/02/2019-continue Plavix, statin, metoprolol. 4. Chronic COPD-no exacerbation. As needed albuterol aerosol. 5. JESSICA-previously on BiPAP which was taken away due to noncompliance. BiPAP nightly. 6. Type 2 diabetes mellitus- Diet controlled following prior gastric bypass. 7. Hernia- reducible. Ostomy intact. Follows with [facility]. Follow-up with [facility]/surgeon at discharge. 8. RLS-on Mirapex. 9. Tobacco dependence-encourage cessation. General: Alert, Oriented x3, Cooperative HEENT: Atraumatic, PERRLA, EOMI, Normocephalic Neck: Supple, No JVD, Negative Carotid Bruits Lungs: Clear to auscultation, Diminished Cardiovascular: No murmurs, Tachycardic Abdomen: Bowel Sounds Present, Soft, Non Tender, Non-Distended, Hernia, Ostomy intact Extremities: No clubbing, No cyanosis, No edema, Capillary Refill Less than 3 Seconds Skin: No rashes, No breakdown Musculoskeletal: No Tenderness to Palpation of Joints or Extremities Neurological: Cranial nerves II-XII grossly intact, Neuro grossly intact Psych/Mental Status: Normal Affect, Appropriate Patient seen and examined prior to discharge. Physical assessment as noted above. Patient is stable for discharge with follow up recommendations as noted above. This patient was seen by ELIO Esposito under the supervision of Dr. Holbrook. Patient Problems: Active and Suspected Problems (Last Reviewed 02/26/20 @ 15:11 by Deyanira QUIJANO PANbaC) CHF (congestive heart failure) (Acute) Anemia (Acute) - Physical Exam Vitals/I&O's: Vital Signs Temp Pulse Resp BP Pulse Ox 97.9 F 88 19 H 94/53 L 94 02/29/20 08:47 02/29/20 08:47 02/29/20 08:47 02/29/20 08:47 02/29/20 08:47 Oxygen Flow Rate (L/min) [ 4 AMBULATION with Oxygen] Oxygen Flow Rate (L/min) 2 Oxygen Delivery Method Nasal Cannula Weight: 224 lb 3.362 oz Body Mass Index (BMI) 48.8 Finger Stick Blood Glucose 88 Intake and Output for Last 24 Hours 02/27/20 02/28/20 02/29/20 23:59 23:59 23:59 Intake Total 1190 / 1490 950 / 950 Output Total 3400 / 4050 2550 / 3200 650 / 650 Balance -2210 / -2560 -1600 / -2250 -650 / -650 Microbiology Past 72 Hours 02/28/20 13:05 Sputum, Expectorated/Coughed Gram Stain - Final 02/25/20 15:45 Blood Culture (Wb) #2 - Left Hand Blood Culture - Preliminary No growth in 48 hours. 02/25/20 15:34 Blood Culture (Wb) - Right Hand Blood Culture - Preliminary No growth in 48 hours. Laboratory Results 02/28/20 17:06: POC Glucose 121 H 02/28/20 21:36: POC Glucose 103 02/29/20 07:35: WBC 7.9, RBC 3.72 L, Hgb 9.1 L, Hct 31.6 L, MCV 84.9, MCH 24.5 L , MCHC 28.8 L, RDW Std Deviation 52.2 H, RDW Coeff of Abiola 17.2 H, Plt Count 354, MPV 8.8 02/29/20 07:35: Sodium 139, Potassium 3.6, Chloride 101, Carbon Dioxide 35.0 H, Anion Gap 3 L, BUN 33 H, Creatinine 1.43 H, Estim Creat Clear Calc 25.64, Est GFR (MDRD) Af Amer 46 L, Est GFR (MDRD) Non-Af 38 L, BUN/Creatinine Ratio 23.1 H , Glucose 76, Calcium 8.6 Current Medications Acetaminophen (Acetaminophen 325 Mg Tablet) 650 mg PO Q6H PRN PRN PRN Reason: Pain Score 1-10/Temp > 100.7 F Last Admin: 02/27/20 17:10 Dose: 650 mg Documented by: Al Hydroxide/Mg Hydroxide (Mag Hydrox/Al Hydrox/Simeth 30 Ml Udc) 30 ml PO Q6H PRN PRN PRN Reason: Gastric Burning Albuterol Sulfate (Albuterol 2.5 Mg/3 Ml Vial.Neb.) 2.5 mg INHALATION Q2H PRN PRN PRN Reason: Dyspnea, wheezing Last Admin: 02/27/20 16:38 Dose: 2.5 mg Documented by: Albuterol/Ipratropium (Ipratropium/Albuterol Sulfate 3 Ml Ampul.Neb) 3 ml INHALATION Q6HWA.RT [facility] Last Admin: 02/29/20 07:08 Dose: 3 ml Documented by: Atorvastatin Calcium (Atorvastatin Calcium 40 Mg Tablet) 40 mg PO QHS [facility] Last Admin: 02/28/20 22:16 Dose: 40 mg Documented by: Citalopram Hydrobromide (Citalopram 20 Mg Tablet) 20 mg PO DAILY [facility] Last Admin: 02/29/20 08:33 Dose: 20 mg Documented by: Clopidogrel Bisulfate (Clopidogrel Bisulfate 75 Mg Tablet) 75 mg PO DAILY [facility] Last Admin: 02/29/20 08:33 Dose: 75 mg Documented by: Dextrose (Dextrose 50%-Water 25 Gm/50 Ml Disp.Syrin) 0 gm IV X1 PRN; Protocol PRN Reason: Hypoglycemia Furosemide (Furosemide 40 Mg/4 Ml Vial) 40 mg IV BID@1000,1800 [facility] Last Admin: 02/29/20 08:40 Dose: 40 mg Documented by: Glucagon (Glucagon 1 Mg/Ml Syringe) 1 mg IM .X1 PRN PRN Reason: Hypoglycemia Guaifenesin (Guaifenesin 10 Ml Udc (200mg/10ml)) 20 ml PO Q4H PRN PRN PRN Reason: COUGH Hydralazine HCl (Hydralazine 20 Mg/Ml Vial) 10 mg IV Q4H PRN PRN PRN Reason: SBP > 160 Insulin Human Lispro (Insulin Lispro 100 Unit/Ml Insuln.Pen) 0 unit SC [facility]; Protocol Last Admin: 02/29/20 08:03 Dose: Not Given Documented by: Loperamide HCl (Loperamide 2 Mg Capsule) 2 mg PO Q4H PRN PRN PRN Reason: Diarrhea Magnesium Hydroxide (Magnesium Hydroxide 30 Ml Udc) 30 ml PO DAILY PRN PRN PRN Reason: Constipation Melatonin (Melatonin 3 Mg Tablet) 3 mg PO QHS PRN PRN PRN Reason: INSOMNIA Last Admin: 02/27/20 21:38 Dose: 3 mg Documented by: Metoprolol Succinate (Metoprolol(Xl)Succ 25 Mg Tablet) 25 mg PO DAILY [facility] Last Admin: 02/29/20 09:38 Dose: Not Given Documented by: Midodrine (Midodrine Hcl 5 Mg Tablet) 5 mg PO Q8 [facility] Last Admin: 02/29/20 08:33 Dose: 5 mg Documented by: Montelukast Sodium (Montelukast 10 Mg Tablet) 10 mg PO QHS PRN PRN Reason: ALLERGIES Morphine Sulfate (Morphine 2 Mg/Ml Syringe) 1 mg IV Q3H PRN PRN PRN Reason: Pain Score 6-10 Last Admin: 02/28/20 22:15 Dose: 1 mg Documented by: Nitroglycerin (Nitroglycerin (Inpatient Use) 0.4 Mg Tab.Subl) 0.4 mg SUBLINGUAL Q5M PRN PRN Reason: CARDIAC/CHEST PAIN Ondansetron HCl (Ondansetron 4 Mg/2 Ml Vial) 4 mg IV Q8H PRN PRN PRN Reason: NAUSEA/VOMITING Last Admin: 02/26/20 18:21 Dose: 4 mg Documented by: Oxycodone HCl (Oxycodone 5 Mg Tablet) 5 mg PO Q6H PRN PRN PRN Reason: Pain Score 6-10 Last Admin: 02/28/20 04:30 Dose: 5 mg Documented by: Pantoprazole Sodium (Pantoprazole Sodium 40 Mg Tablet) 40 mg PO BID [facility] Last Admin: 02/29/20 08:39 Dose: 40 mg Documented by: Pramipexole Dihydrochloride (Pramipexole Di-Hcl 0.5 Mg Tablet) 1.5 mg PO TID [facility] Last Admin: 02/29/20 08:32 Dose: 1.5 mg Documented by: Prochlorperazine Edisylate (Prochlorperazine 10 Mg/2 Ml Vial) 5 mg IV Q4H PRN PRN PRN Reason: Breakthrough Nausea/Vomiting Last Admin: 02/28/20 22:15 Dose: 5 mg Documented by: Psyllium Hydrophilic Mucilloid (Psyllium 1 Packet) 1 packet PO DAILY PRN PRN PRN Reason: Constipation Senna/Docusate Sodium (Senna/Docusate Sodium 1 Tablet) 2 tablet PO BID PRN PRN PRN Reason: Constipation Sodium Chloride (0.9% Saline Lock 10 Ml Syringe) 10 - 40 ml IV UD PRN PRN Reason: SALINE FLUSH Last Admin: 02/28/20 18:21 Dose: 10 ml Documented by: Throat Lozenges (Benzocaine/Menthol 1 Lozenge) 1 lozenge MUCOUS MEM Q2H PRN PRN PRN Reason: SORE THROAT Tolterodine Tartrate (Tolterodine Tartrate 2 Mg Cap.Sa) 2 mg PO DAILY [facility] Last Admin: 02/29/20 08:33 Dose: 2 mg Documented by: Discharge Diet: Low fat/ Low Cholesterol, Carb Control Diet Discharge Activity: Return to Normal Activity Call your doctor if you observe: Shortness of breath, Dizziness, Fainting spells, Chest pain Home Medications: Medications to take at Discharge Citalopram [Celexa] 20 mg PO DAILY 02/28/13 Montelukast [Singulair] 10 mg PO QHS PRN 07/08/14 Albuterol IH (ProAir) [Proair Hfa] 2 puff INHALATION Q6H PRN PRN 07/15/14 Atorvastatin Calcium [Lipitor] 40 mg PO QHS 08/17/18 metoprolol succinate 25 mg tablet,extended release 24 hr 12.5 mg PO DAILY tab 12/06/19 midodrine 5 mg tablet 5 mg PO Q8H tab 01/25/20 oxybutynin chloride 10 mg tablet,extended release 24 hr 10 mg PO DAILY 01/25/20 Albuterol Aerosols [Ventolin Aerosols] 2.5 mg INHALATION TID 02/11/20 nitroglycerin 0.4 mg sublingual tablet 0.4 mg SUBLINGUAL Q5M PRN #25 tab 02/11/20 Clopidogrel Bisulfate [Clopidogrel] 75 mg PO DAILY 02/25/20 Hydroxyzine HCl 25 mg PO QHS 02/25/20 Pramipexole Di-HCl [Mirapex] 1.5 mg PO TID 02/25/20 Loperamide [Imodium] 2 mg PO Q4H PRN PRN 02/26/20 Furosemide [Lasix] 40 mg PO DAILY #30 tab 02/29/20 Pantoprazole Sodium [Protonix] 40 mg PO BID #60 tab 02/29/20 Following Prescriptions Were Given to Patient: Furosemide [Lasix] 40 mg PO DAILY #30 tab Transmission Status: Received by [id number] Pantoprazole Sodium [Protonix] 40 mg PO BID #60 tab Transmission Status: Received by [id number] Primary Care Physician: Vicente Raya III, MD [Primary Care Provider] - Please follow up with your Primary Care Physician in: 1 Week Please Follow Up With: Marisela Barry PA When: As scheduled 03/11/2020 Please Follow Up With: Vicente Raya III, MD When: Call for follow up Please Follow Up With: [facility] Disposition: Home Minutes spent on discharge:: 35 Patient Condition:: Stable Medical Necessity - Tobacco Use Smoking Status: Current every day smoker Tobacco Use: Cigarettes Meaningful Use Info Meaningful Use Diagnoses (Choose all that apply): CHF - CHF MAURO/ARB ordered at discharge?: No Reason MAURO/ARB not ordered?: Hypotension Documented LVEF (%): 65 <Casey Holbrook - Last Filed: 02/29/20 13:51> Discharge Date and Diagnosis - Primary Discharge Diagnosis Acute Problems: Active Problems (Last Reviewed 02/26/20 @ 15:11 by Deyanira QUIJANO, PA-C) CHF (congestive heart failure) (Acute) Anemia (Acute) - Secondary Discharge Diagnosis Chronic Problems: Chronic Problems (Last Reviewed 02/26/20 @ 15:11 by Deyanira QUIJANO, PA-C) CAD (coronary artery disease) (Chronic) Morbid obesity (Chronic) COPD (chronic obstructive pulmonary disease) (Chronic) Diabetes (Chronic) Chronic respiratory failure with hypoxia (Chronic) JESSICA (obstructive sleep apnea) (Chronic) Atherosclerosis of coronary artery of [place] heart without angina pectoris (Chronic) History of coronary artery stent placement (Chronic 12/11/19) [id number] RCA 2000 and 2002; ZHJ-IKX-Qwze RCA 03/22/13; PCI-MUSHTAQ-Mid RCA w/ 3.5 x 12 mm Promus Synergy Stent 12/22/2017; OYE-PVW-Pqywgq LAD w/ 2.25 X 24 mm Promus Synergy and MUSHTAQ- Prox LAD w/ 3.5 X 24 mm Promus Synergy 01/20/2018; TWD-Lrsqznblpkon-NLA-Mid RCA w/ 3.5 x 20 mm and 3.5 x 8 mm Synergy Stents 12/11/2019 Stenosis of right carotid artery (Chronic) RCEA 07/2014 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 I have independently interviewed and examined the patient and reviewed pertinent historical, laboratory, and other data. Please refer to ELIO Esposito note for details of this patient's presentation, findings, and recommendations. I have reviewed ELIO Esposito note and concur with documented findings. In brief, patient is a 79-year-old lady with multiple comorbidities admitted with progressive shortness of breath and assessment of acute hypoxic respiratory insufficiency secondary to congestive heart failure with preserved ejection fraction made. Patient was also found to have significant anemia and was transfused with 1 unit PRBC Assessment: 1. Acute hypoxic respiratory insufficiency 2. Congestive heart failure with preserved ejection fraction 3. Acute anemia?anemia secondary to anemia of chronic disorder 4. Obesity with BMI of 48.8 5. Diabetes mellitus type 2 6. Restless leg syndrome 1. Coronary artery disease 8. COPD 9. Obstructive sleep apnea 10. Tobacco dependence 11. Ileus 12. DVT prophylaxis Hospital course: As documented above - Physical Exam Vitals/I&O's: Vital Signs Temp Pulse Resp BP Pulse Ox 97.9 F 88 19 H 94/53 L 77 02/29/20 08:47 02/29/20 08:47 02/29/20 08:47 02/29/20 08:47 02/29/20 12:42 Oxygen Flow Rate (L/min) [ 4 AMBULATION with Oxygen] Oxygen Flow Rate (L/min) [At 0 REST on Room Air] Oxygen Flow Rate (L/min) 2 Oxygen Delivery Method Nasal Cannula Weight: 101.7 kg Body Mass Index (BMI) 48.8 Finger Stick Blood Glucose 88 Intake and Output for Last 24 Hours 02/27/20 02/28/20 02/29/20 23:59 23:59 23:59 Intake Total 1190 / 1490 950 / 950 120 / 120 Output Total 3400 / 4050 2550 / 3200 1050 / 1050 Balance -2210 / -2560 -1600 / -2250 -930 / -930 Microbiology Past 72 Hours 02/28/20 13:05 Sputum, Expectorated/Coughed Gram Stain - Final 02/28/20 13:05 Sputum, Expectorated/Coughed Respiratory Culture - Preliminar y Appears to be normal respiratory christian. Further studies to follow. 02/25/20 15:45 Blood Culture (Wb) #2 - Left Hand Blood Culture - Preliminary No growth in 48 hours. 02/25/20 15:34 Blood Culture (Wb) - Right Hand Blood Culture - Preliminary No growth in 48 hours. Laboratory Results 02/28/20 17:06: POC Glucose 121 H 02/28/20 21:36: POC Glucose 103 02/29/20 07:35: WBC 7.9, RBC 3.72 L, Hgb 9.1 L, Hct 31.6 L, MCV 84.9, MCH 24.5 L , MCHC 28.8 L, RDW Std Deviation 52.2 H, RDW Coeff of Abiola 17.2 H, Plt Count 354, MPV 8.8 02/29/20 07:35: Sodium 139, Potassium 3.6, Chloride 101, Carbon Dioxide 35.0 H, Anion Gap 3 L, BUN 33 H, Creatinine 1.43 H, Estim Creat Clear Calc 25.64, Est GFR (MDRD) Af Amer 46 L, Est GFR (MDRD) Non-Af 38 L, BUN/Creatinine Ratio 23.1 H , Glucose 76, Calcium 8.6 02/29/20 12:11: POC Glucose 98 Current Medications Acetaminophen (Acetaminophen 325 Mg Tablet) 650 mg PO Q6H PRN PRN PRN Reason: Pain Score 1-10/Temp > 100.7 F Last Admin: 02/27/20 17:10 Dose: 650 mg Documented by: Al Hydroxide/Mg Hydroxide (Mag Hydrox/Al Hydrox/Simeth 30 Ml Udc) 30 ml PO Q6H PRN PRN PRN Reason: Gastric Burning Albuterol Sulfate (Albuterol 2.5 Mg/3 Ml Vial.Neb.) 2.5 mg INHALATION Q2H PRN PRN PRN Reason: Dyspnea, wheezing Last Admin: 02/27/20 16:38 Dose: 2.5 mg Documented by: Albuterol/Ipratropium (Ipratropium/Albuterol Sulfate 3 Ml Ampul.Neb) 3 ml INHALATION Q6HWA.RT [facility] Last Admin: 02/29/20 07:08 Dose: 3 ml Documented by: Atorvastatin Calcium (Atorvastatin Calcium 40 Mg Tablet) 40 mg PO QHS [facility] Last Admin: 02/28/20 22:16 Dose: 40 mg Documented by: Citalopram Hydrobromide (Citalopram 20 Mg Tablet) 20 mg PO DAILY [facility] Last Admin: 02/29/20 08:33 Dose: 20 mg Documented by: Clopidogrel Bisulfate (Clopidogrel Bisulfate 75 Mg Tablet) 75 mg PO DAILY [facility] Last Admin: 02/29/20 08:33 Dose: 75 mg Documented by: Dextrose (Dextrose 50%-Water 25 Gm/50 Ml Disp.Syrin) 0 gm IV X1 PRN; Protocol PRN Reason: Hypoglycemia Furosemide (Furosemide 40 Mg/4 Ml Vial) 40 mg IV BID@1000,1800 [facility] Last Admin: 02/29/20 08:40 Dose: 40 mg Documented by: Glucagon (Glucagon 1 Mg/Ml Syringe) 1 mg IM .X1 PRN PRN Reason: Hypoglycemia Guaifenesin (Guaifenesin 10 Ml Udc (200mg/10ml)) 20 ml PO Q4H PRN PRN PRN Reason: COUGH Hydralazine HCl (Hydralazine 20 Mg/Ml Vial) 10 mg IV Q4H PRN PRN PRN Reason: SBP > 160 Insulin Human Lispro (Insulin Lispro 100 Unit/Ml Insuln.Pen) 0 unit SC ACHS [facility]; Protocol Last Admin: 02/29/20 11:30 Dose: Not Given Documented by: Loperamide HCl (Loperamide 2 Mg Capsule) 2 mg PO Q4H PRN PRN PRN Reason: Diarrhea Magnesium Hydroxide (Magnesium Hydroxide 30 Ml Udc) 30 ml PO DAILY PRN PRN PRN Reason: Constipation Melatonin (Melatonin 3 Mg Tablet) 3 mg PO QHS PRN PRN PRN Reason: INSOMNIA Last Admin: 02/27/20 21:38 Dose: 3 mg Documented by: Metoprolol Succinate (Metoprolol(Xl)Succ 25 Mg Tablet) 25 mg PO DAILY [facility] Last Admin: 02/29/20 09:38 Dose: Not Given Documented by: Midodrine (Midodrine Hcl 5 Mg Tablet) 5 mg PO Q8 [facility] Last Admin: 02/29/20 13:10 Dose: 5 mg Documented by: Montelukast Sodium (Montelukast 10 Mg Tablet) 10 mg PO QHS PRN PRN Reason: ALLERGIES Morphine Sulfate (Morphine 2 Mg/Ml Syringe) 1 mg IV Q3H PRN PRN PRN Reason: Pain Score 6-10 Last Admin: 02/28/20 22:15 Dose: 1 mg Documented by: Nitroglycerin (Nitroglycerin (Inpatient Use) 0.4 Mg Tab.Subl) 0.4 mg SUBLINGUAL Q5M PRN PRN Reason: CARDIAC/CHEST PAIN Ondansetron HCl (Ondansetron 4 Mg/2 Ml Vial) 4 mg IV Q8H PRN PRN PRN Reason: NAUSEA/VOMITING Last Admin: 02/26/20 18:21 Dose: 4 mg Documented by: Oxycodone HCl (Oxycodone 5 Mg Tablet) 5 mg PO Q6H PRN PRN PRN Reason: Pain Score 6-10 Last Admin: 02/28/20 04:30 Dose: 5 mg Documented by: Pantoprazole Sodium (Pantoprazole Sodium 40 Mg Tablet) 40 mg PO BID [facility] Last Admin: 02/29/20 08:39 Dose: 40 mg Documented by: Pramipexole Dihydrochloride (Pramipexole Di-Hcl 0.5 Mg Tablet) 1.5 mg PO TID [facility] Last Admin: 02/29/20 13:10 Dose: 1.5 mg Documented by: Prochlorperazine Edisylate (Prochlorperazine 10 Mg/2 Ml Vial) 5 mg IV Q4H PRN PRN PRN Reason: Breakthrough Nausea/Vomiting Last Admin: 02/28/20 22:15 Dose: 5 mg Documented by: Psyllium Hydrophilic Mucilloid (Psyllium 1 Packet) 1 packet PO DAILY PRN PRN PRN Reason: Constipation Senna/Docusate Sodium (Senna/Docusate Sodium 1 Tablet) 2 tablet PO BID PRN PRN PRN Reason: Constipation Sodium Chloride (0.9% Saline Lock 10 Ml Syringe) 10 - 40 ml IV UD PRN PRN Reason: SALINE FLUSH Last Admin: 02/28/20 18:21 Dose: 10 ml Documented by: Throat Lozenges (Benzocaine/Menthol 1 Lozenge) 1 lozenge MUCOUS MEM Q2H PRN PRN PRN Reason: SORE THROAT Tolterodine Tartrate (Tolterodine Tartrate 2 Mg Cap.Sa) 2 mg PO DAILY [facility] Last Admin: 02/29/20 08:33 Dose: 2 mg Documented by: Inpatient E&M: [id number] Disch Hosp
[2020-02-29 12:15] LABS: Bedside Glucose 98 mg/dL (70-110)
[2020-02-29] MEDS: Acetaminophen 325 MG Tablet 650 MG PO (14:41)
[2020-02-29] MEDS: Ondansetron 4 MG/2 ML Vial IV (14:59)
[2020-02-29 16:15] LABS: Bedside Glucose 109 mg/dL (70-110)
--- NOTE | 2020-02-29 16:31 | CT_ITS ---
STUDY: CT ABDOMEN AND PELVIS WITHOUT CONTRAST REASON FOR EXAM: Female, 79 years old. Pain. History of small bowel obstruction. RADIATION DOSAGE (If Supplied By Facility): CTDIvol = ( 20.85 ) mGy, DLP = ( 1069.85 ) mGycm TECHNIQUE: Transaxial images were obtained from the dome of the diaphragm to the symphysis pubis without oral contrast, and without intravenous contrast. Sagittal and coronal images were reconstructed. Individualized dose optimization techniques were used for this CT. COMPARISON: 12/13/19 FINDINGS: Evaluation of the abdominal viscera is limited in the absence of intravenous contrast. There is airspace opacity at the lung bases, left greater than right. There are coronary artery calcifications noted. The patient is status post cholecystectomy. The liver demonstrates an unremarkable unenhanced appearance. The spleen is normal in size. The pancreas demonstrates an unremarkable unenhanced appearance. The adrenal glands are within normal limits. There are no renal or ureteral stones. There is no hydronephrosis. There is a stable cyst in the right kidney. There are stable postsurgical changes from prior gastric bypass and prior resection. There is a right lower quadrant colostomy noted. There is a stable parastomal hernia noted. There are multiple dilated loops of proximal small bowel collapsed loops noted distally. The transition point appears to be within the patient''s ventral hernia. This is similar in appearance to the prior exam. The aorta is normal in caliber. Again noted are extensive atherosclerotic calcifications in the aorta and its branches. There is no abdominal or pelvic free air, free fluid, fluid collection or lymphadenopathy. There are no destructive osseous lesions. CT/Abdomen/Pelvis without Cont IMPRESSION: Small bowel obstruction with the transition point likely within the patient''s ventral hernia. This is similar in appearance to the prior exam. No free air, free fluid or fluid collection. Bibasilar pulmonary opacities which may be due to atelectasis or infection. Clinical correlation is recommended. Electronically Signed: Mike Alvarez, at 17:21 EST Tel , Service support ,
--- NOTE | 2020-02-29 16:43 | PN_ITS ---
<Shelbie Isaac BOTTOM WORKER - Last Filed: 02/29/20 16:49> Patient Problems: Active and Suspected Problems (Last Reviewed 02/26/20 @ 15:11 by Deyanira QUIJANO PA-C) CHF (congestive heart failure) (Acute) Anemia (Acute) Subjective: Patient seen and examined. Plan for discharge however prior to discharge patient developed recurrent abdominal pain. CT abdomen ordered and pending. Discharge canceled. - Physical Exam Vitals/I&O's: Vital Signs Temp Pulse Resp BP Pulse Ox 98.1 F 83 19 H 110/64 77 02/29/20 12:45 02/29/20 12:45 02/29/20 12:45 02/29/20 12:45 02/29/20 13:58 Oxygen Flow Rate (L/min) [ 2 AMBULATION with Oxygen] Oxygen Flow Rate (L/min) [At 0 REST on Room Air] Oxygen Flow Rate (L/min) 3 Oxygen Delivery Method Nasal Cannula Weight: 224 lb 3.362 oz Body Mass Index (BMI) 48.8 Finger Stick Blood Glucose 88 Intake and Output for Last 24 Hours 02/27/20 02/28/20 02/29/20 23:59 23:59 23:59 Intake Total 1190 / 1490 950 / 950 120 / 120 Output Total 3400 / 4050 2550 / 3200 1050 / 1050 Balance -2210 / -2560 -1600 / -2250 -930 / -930 General: Alert, Oriented x3, Cooperative HEENT: Atraumatic, PERRLA, EOMI, Normocephalic Neck: Supple, No JVD, Negative Carotid Bruits Lungs: Clear to auscultation, Diminished Cardiovascular: Regular rate, No murmurs Abdomen: Bowel Sounds Present, Soft, Tender, Hernia Extremities: No clubbing, No cyanosis, No edema, Capillary Refill Less than 3 Seconds Skin: No rashes, No breakdown Musculoskeletal: No Tenderness to Palpation of Joints or Extremities Neurological: Cranial nerves II-XII grossly intact, Neuro grossly intact Psych/Mental Status: Normal Affect, Appropriate Microbiology Past 72 Hours 02/28/20 13:05 Sputum, Expectorated/Coughed Gram Stain - Final 02/28/20 13:05 Sputum, Expectorated/Coughed Respiratory Culture - Preliminar y Appears to be normal respiratory christian. Further studies to follow. 02/25/20 15:45 Blood Culture (Wb) #2 - Left Hand Blood Culture - Preliminary No growth in 48 hours. 02/25/20 15:34 Blood Culture (Wb) - Right Hand Blood Culture - Preliminary No growth in 48 hours. Laboratory Results 02/28/20 17:06: POC Glucose 121 H 02/28/20 21:36: POC Glucose 103 02/29/20 07:35: WBC 7.9, RBC 3.72 L, Hgb 9.1 L, Hct 31.6 L, MCV 84.9, MCH 24.5 L , MCHC 28.8 L, RDW Std Deviation 52.2 H, RDW Coeff of Abiola 17.2 H, Plt Count 354, MPV 8.8 02/29/20 07:35: Sodium 139, Potassium 3.6, Chloride 101, Carbon Dioxide 35.0 H, Anion Gap 3 L, BUN 33 H, Creatinine 1.43 H, Estim Creat Clear Calc 25.64, Est GFR (MDRD) Af Amer 46 L, Est GFR (MDRD) Non-Af 38 L, BUN/Creatinine Ratio 23.1 H , Glucose 76, Calcium 8.6 02/29/20 12:11: POC Glucose 98 02/29/20 16:04: POC Glucose 109 Current Medications Acetaminophen (Acetaminophen 325 Mg Tablet) 650 mg PO Q6H PRN PRN PRN Reason: Pain Score 1-10/Temp > 100.7 F Last Admin: 02/29/20 14:41 Dose: 650 mg Documented by: Al Hydroxide/Mg Hydroxide (Mag Hydrox/Al Hydrox/Simeth 30 Ml Udc) 30 ml PO Q6H PRN PRN PRN Reason: Gastric Burning Albuterol Sulfate (Albuterol 2.5 Mg/3 Ml Vial.Neb.) 2.5 mg INHALATION Q2H PRN PRN PRN Reason: Dyspnea, wheezing Last Admin: 02/27/20 16:38 Dose: 2.5 mg Documented by: Albuterol/Ipratropium (Ipratropium/Albuterol Sulfate 3 Ml Ampul.Neb) 3 ml INHALATION Q6HWA.RT RADHA Last Admin: 02/29/20 07:08 Dose: 3 ml Documented by: Atorvastatin Calcium (Atorvastatin Calcium 40 Mg Tablet) 40 mg PO QHS RADHA Last Admin: 02/28/20 22:16 Dose: 40 mg Documented by: Citalopram Hydrobromide (Citalopram 20 Mg Tablet) 20 mg PO DAILY [facility] Last Admin: 02/29/20 08:33 Dose: 20 mg Documented by: Clopidogrel Bisulfate (Clopidogrel Bisulfate 75 Mg Tablet) 75 mg PO DAILY [facility] Last Admin: 02/29/20 08:33 Dose: 75 mg Documented by: Dextrose (Dextrose 50%-Water 25 Gm/50 Ml Disp.Syrin) 0 gm IV X1 PRN; Protocol PRN Reason: Hypoglycemia Glucagon (Glucagon 1 Mg/Ml Syringe) 1 mg IM .X1 PRN PRN Reason: Hypoglycemia Guaifenesin (Guaifenesin 10 Ml Udc (200mg/10ml)) 20 ml PO Q4H PRN PRN PRN Reason: COUGH Hydralazine HCl (Hydralazine 20 Mg/Ml Vial) 10 mg IV Q4H PRN PRN PRN Reason: SBP > 160 Insulin Human Lispro (Insulin Lispro 100 Unit/Ml Insuln.Pen) 0 unit SC ACHS [facility]; Protocol Last Admin: 02/29/20 16:04 Dose: Not Given Documented by: Loperamide HCl (Loperamide 2 Mg Capsule) 2 mg PO Q4H PRN PRN PRN Reason: Diarrhea Magnesium Hydroxide (Magnesium Hydroxide 30 Ml Udc) 30 ml PO DAILY PRN PRN PRN Reason: Constipation Melatonin (Melatonin 3 Mg Tablet) 3 mg PO QHS PRN PRN PRN Reason: INSOMNIA Last Admin: 02/27/20 21:38 Dose: 3 mg Documented by: Metoprolol Succinate (Metoprolol(Xl)Succ 25 Mg Tablet) 25 mg PO DAILY [facility] Last Admin: 02/29/20 09:38 Dose: Not Given Documented by: Midodrine (Midodrine Hcl 5 Mg Tablet) 5 mg PO Q8 [facility] Last Admin: 02/29/20 13:10 Dose: 5 mg Documented by: Montelukast Sodium (Montelukast 10 Mg Tablet) 10 mg PO QHS PRN PRN Reason: ALLERGIES Morphine Sulfate (Morphine 2 Mg/Ml Syringe) 1 mg IV Q3H PRN PRN PRN Reason: Pain Score 6-10 Last Admin: 02/28/20 22:15 Dose: 1 mg Documented by: Nitroglycerin (Nitroglycerin (Inpatient Use) 0.4 Mg Tab.Subl) 0.4 mg SUBLINGUAL Q5M PRN PRN Reason: CARDIAC/CHEST PAIN Ondansetron HCl (Ondansetron 4 Mg/2 Ml Vial) 4 mg IV Q8H PRN PRN PRN Reason: NAUSEA/VOMITING Last Admin: 02/29/20 14:59 Dose: 4 mg Documented by: Oxycodone HCl (Oxycodone 5 Mg Tablet) 5 mg PO Q6H PRN PRN PRN Reason: Pain Score 6-10 Last Admin: 02/28/20 04:30 Dose: 5 mg Documented by: Pantoprazole Sodium (Pantoprazole Sodium 40 Mg Tablet) 40 mg PO BID [facility] Last Admin: 02/29/20 08:39 Dose: 40 mg Documented by: Pramipexole Dihydrochloride (Pramipexole Di-Hcl 0.5 Mg Tablet) 1.5 mg PO TID [facility] Last Admin: 02/29/20 13:10 Dose: 1.5 mg Documented by: Prochlorperazine Edisylate (Prochlorperazine 10 Mg/2 Ml Vial) 5 mg IV Q4H PRN P RN PRN Reason: Breakthrough Nausea/Vomiting Last Admin: 02/28/20 22:15 Dose: 5 mg Documented by: Psyllium Hydrophilic Mucilloid (Psyllium 1 Packet) 1 packet PO DAILY PRN PRN PRN Reason: Constipation Senna/Docusate Sodium (Senna/Docusate Sodium 1 Tablet) 2 tablet PO BID PRN PRN PRN Reason: Constipation Sodium Chloride (0.9% Saline Lock 10 Ml Syringe) 10 - 40 ml IV UD PRN PRN Reason: SALINE FLUSH Last Admin: 02/28/20 18:21 Dose: 10 ml Documented by: Throat Lozenges (Benzocaine/Menthol 1 Lozenge) 1 lozenge MUCOUS MEM Q2H PRN PRN PRN Reason: SORE THROAT Tolterodine Tartrate (Tolterodine Tartrate 2 Mg Cap.Sa) 2 mg PO DAILY [facility] Last Admin: 02/29/20 08:33 Dose: 2 mg Documented by: Medical Necessity - Tobacco Use Smoking Status: Current every day smoker Tobacco Use: Cigarettes Assessment/Plan All Active Problems (Last Reviewed 02/26/20 @ 15:11 by Deyanira QUIJANO PANbaC) CHF (congestive heart failure) (Acute) Anemia (Acute) Influenza A (Resolved) 1. Acute abdominal pain-patient has complicated hernias, ileostomy in place. Discussed with general surgery who is on board. Will obtain CT of abdomen. KUB yesterday demonstrated ileus however patient's abdominal pain had previously resolved and was having normal ileostomy output. 2. Acute on chronic hypoxic respiratory insufficiency secondary to acute on chronic heart failure with preserved ejection fraction-echocardiogram with EF 65%, mild to moderate mitral valve insufficiency. IV Lasix during admission. Patient will require increase in baseline home O2 requirements, previously on 2 L continuously and will be discharged on 3 L continuously. She is ambulatory in the home. Transition to oral Lasix regimen at discharge. Patient has upcoming follow-up with cardiology 03/11/2020. 3. Acute on chronic normocytic anemia-EGD unremarkable. Continue PPI empirically. Follow-up as needed with general surgery. Hemoglobin stable. 4. CAD with history of recent stent 12/02/2019-continue Plavix, statin, metoprolol. 5. Chronic COPD-no exacerbation. As needed albuterol aerosol. 6. JESSICA-previously on BiPAP which was taken away due to noncompliance. BiPAP nightly. 7. Type 2 diabetes mellitus- Diet controlled following prior gastric bypass. 8. Hernia- reducible. Ostomy intact. Follows with [facility]. Follow-up with [facility] GI/surgeon at discharge. 9. RLS-on Mirapex. 10. Tobacco dependence-encourage cessation. DVT prophylaxis-Lovenox subcu. This patient was seen by ELIO Esposito under the supervision of Dr. Holbrook. <Casey Holbrook - Last Filed: 02/29/20 16:53> - Physical Exam Vitals/I&O's: Vital Signs Temp Pulse Resp BP Pulse Ox 98.1 F 83 19 H 110/64 77 02/29/20 12:45 02/29/20 12:45 02/29/20 12:45 02/29/20 12:45 02/29/20 13:58 Oxygen Flow Rate (L/min) [ 2 AMBULATION with Oxygen] Oxygen Flow Rate (L/min) [At 0 REST on Room Air] Oxygen Flow Rate (L/min) 3 Oxygen Delivery Method Nasal Cannula Weight: 101.7 kg Body Mass Index (BMI) 48.8 Finger Stick Blood Glucose 88 Intake and Output for Last 24 Hours 02/27/20 02/28/20 02/29/20 23:59 23:59 23:59 Intake Total 1190 / 1490 950 / 950 120 / 120 Output Total 3400 / 4050 2550 / 3200 1050 / 1050 Balance -2210 / -2560 -1600 / -2250 -930 / -930 Microbiology Past 72 Hours 02/28/20 13:05 Sputum, Expectorated/Coughed Gram Stain - Final 02/28/20 13:05 Sputum, Expectorated/Coughed Respiratory Culture - Preliminary Appears to be normal respiratory christian. Further studies to follow. 02/25/20 15:45 Blood Culture (Wb) #2 - Left Hand Blood Culture - Preliminary No growth in 48 hours. 02/25/20 15:34 Blood Culture (Wb) - Right Hand Blood Culture - Preliminary No growth in 48 hours. Laboratory Results 02/28/20 17:06: POC Glucose 121 H 02/28/20 21:36: POC Glucose 103 02/29/20 07:35: WBC 7.9, RBC 3.72 L, Hgb 9.1 L, Hct 31.6 L, MCV 84.9, MCH 24.5 L , MCHC 28.8 L, RDW Std Deviation 52.2 H, RDW Coeff of Abiola 17.2 H, Plt Count 354, MPV 8.8 02/29/20 07:35: Sodium 139, Potassium 3.6, Chloride 101, Carbon Dioxide 35.0 H, Anion Gap 3 L, BUN 33 H, Creatinine 1.43 H, Estim Creat Clear Calc 25.64, Est GFR (MDRD) Af Amer 46 L, Est GFR (MDRD) Non-Af 38 L, BUN/Creatinine Ratio 23.1 H , Glucose 76, Calcium 8.6 02/29/20 12:11: POC Glucose 98 02/29/20 16:04: POC Glucose 109 Current Medications Acetaminophen (Acetaminophen 325 Mg Tablet) 650 mg PO Q6H PRN PRN PRN Reason: Pain Score 1-10/Temp > 100.7 F Last Admin: 02/29/20 14:41 Dose: 650 mg Documented by: Al Hydroxide/Mg Hydroxide (Mag Hydrox/Al Hydrox/Simeth 30 Ml Udc) 30 ml PO Q6H PRN PRN PRN Reason: Gastric Burning Albuterol Sulfate (Albuterol 2.5 Mg/3 Ml Vial.Neb.) 2.5 mg INHALATION Q2H PRN PRN PRN Reason: Dyspnea, wheezing Last Admin: 02/27/20 16:38 Dose: 2.5 mg Documented by: Albuterol/Ipratropium (Ipratropium/Albuterol Sulfate 3 Ml Ampul.Neb) 3 ml INHALATION Q6HWA.RT [facility] Last Admin: 02/29/20 07:08 Dose: 3 ml Documented by: Atorvastatin Calcium (Atorvastatin Calcium 40 Mg Tablet) 40 mg PO QHS [facility] Last Admin: 02/28/20 22:16 Dose: 40 mg Documented by: Citalopram Hydrobromide (Citalopram 20 Mg Tablet) 20 mg PO DAILY [facility] Last Admin: 02/29/20 08:33 Dose: 20 mg Documented by: Clopidogrel Bisulfate (Clopidogrel Bisulfate 75 Mg Tablet) 75 mg PO DAILY [facility] Last Admin: 02/29/20 08:33 Dose: 75 mg Documented by: Dextrose (Dextrose 50%-Water 25 Gm/50 Ml Disp.Syrin) 0 gm IV X1 PRN; Protocol PRN Reason: Hypoglycemia Glucagon (Glucagon 1 Mg/Ml Syringe) 1 mg IM .X1 PRN PRN Reason: Hypoglycemia Guaifenesin (Guaifenesin 10 Ml Udc (200mg/10ml)) 20 ml PO Q4H PRN PRN PRN Reason: COUGH Hydralazine HCl (Hydralazine 20 Mg/Ml Vial) 10 mg IV Q4H PRN PRN PRN Reason: SBP > 160 Insulin Human Lispro (Insulin Lispro 100 Unit/Ml Insuln.Pen) 0 unit SC ACHS [facility]; Protocol Last Admin: 02/29/20 16:04 Dose: Not Given Documented by: Loperamide HCl (Loperamide 2 Mg Capsule) 2 mg PO Q4H PRN PRN PRN Reason: Diarrhea Magnesium Hydroxide (Magnesium Hydroxide 30 Ml Udc) 30 ml PO DAILY PRN PRN PRN Reason: Constipation Melatonin (Melatonin 3 Mg Tablet) 3 mg PO QHS PRN PRN PRN Reason: INSOMNIA Last Admin: 02/27/20 21:38 Dose: 3 mg Documented by: Metoprolol Succinate (Metoprolol(Xl)Succ 25 Mg Tablet) 25 mg PO DAILY [facility] Last Admin: 02/29/20 09:38 Dose: Not Given Documented by: Midodrine (Midodrine Hcl 5 Mg Tablet) 5 mg PO Q8 [facility] Last Admin: 02/29/20 13:10 Dose: 5 mg Documented by: Montelukast Sodium (Montelukast 10 Mg Tablet) 10 mg PO QHS PRN PRN Reason: ALLERGIES Morphine Sulfate (Morphine 2 Mg/Ml Syringe) 1 mg IV Q3H PRN PRN PRN Reason: Pain Score 6-10 Last Admin: 02/28/20 22:15 Dose: 1 mg Documented by: Nitroglycerin (Nitroglycerin (Inpatient Use) 0.4 Mg Tab.Subl) 0.4 mg SUBLINGUAL Q5M PRN PRN Reason: CARDIAC/CHEST PAIN Ondansetron HCl (Ondansetron 4 Mg/2 Ml Vial) 4 mg IV Q8H PRN PRN PRN Reason: NAUSEA/VOMITING Last Admin: 02/29/20 14:59 Dose: 4 mg Documented by: Oxycodone HCl (Oxycodone 5 Mg Tablet) 5 mg PO Q6H PRN PRN PRN Reason: Pain Score 6-10 Last Admin: 02/28/20 04:30 Dose: 5 mg Documented by: Pantoprazole Sodium (Pantoprazole Sodium 40 Mg Tablet) 40 mg PO BID [facility] Last Admin: 02/29/20 08:39 Dose: 40 mg Documented by: Pramipexole Dihydrochloride (Pramipexole Di-Hcl 0.5 Mg Tablet) 1.5 mg PO TID [facility] Last Admin: 02/29/20 13:10 Dose: 1.5 mg Documented by: Prochlorperazine Edisylate (Prochlorperazine 10 Mg/2 Ml Vial) 5 mg IV Q4H PRN PRN PRN Reason: Breakthrough Nausea/Vomiting Last Admin: 02/28/20 22:15 Dose: 5 mg Documented by: Psyllium Hydrophilic Mucilloid (Psyllium 1 Packet) 1 packet PO DAILY PRN PRN PRN Reason: Constipation Senna/Docusate Sodium (Senna/Docusate Sodium 1 Tablet) 2 tablet PO BID PRN PRN PRN Reason: Constipation Sodium Chloride (0.9% Saline Lock 10 Ml Syringe) 10 - 40 ml IV UD PRN PRN Reason: SALINE FLUSH Last Admin: 02/28/20 18:21 Dose: 10 ml Documented by: Throat Lozenges (Benzocaine/Menthol 1 Lozenge) 1 lozenge MUCOUS MEM Q2H PRN PRN PRN Reason: SORE THROAT Tolterodine Tartrate (Tolterodine Tartrate 2 Mg Cap.Sa) 2 mg PO DAILY [facility] Last Admin: 02/29/20 08:33 Dose: 2 mg Documented by: Assessment/Plan This patient was seen in conjunction with ELIO Esposito . I have independently interviewed and examined the patient and reviewed pertinent historical, laboratory, and other data. Please refer to ELIO Esposito note for details of this patient's presentation, findings, and recommendations. I have reviewed ELIO Esposito note and concur with documented findings. In brief, patient is a 79-year-old lady with multiple comorbidities admitted with progressive shortness of breath and assessment of acute hypoxic respiratory insufficiency secondary to congestive heart failure with preserved ejection fraction made. Patient was also found to have significant anemia and was transfused with 1 unit PRBC 02/27/2020; patient seen denies any further melenic stools. Patient is scheduled to undergo EGD by Dr. Roth 02/28/2020 patient did have runs of SVTs. KUB demonstrated ileus pattern. Decision to discharge patient placed on hold patient observed for 1 additional night 02/29/2020; plan was for patient to have been discharged home however she did develop recurrent abdominal pain. Her discharge discontinued Case discussed with general surgeon Dr. Roth who recommended obtaining CT of the abdomen to evaluate her hernia Physical Examination: GENERAL: cooperative HEENT: Atraumatic; EYES; Anicteric, Normal Conjunctiva NECK; supple, normal thyroid, RESPIRATORY: Diminished to auscultation CARDIOVASCULAR: Regular S1 S2, GI: soft, normoactive bowel sounds, ostomy in place : No Renal angle tenderness; EXTREMITIES: edema, no clubbing, MUSCULOSKELETAL: no muscle waisting NEURO: Awake; no lateralizing signs. SKIN: No Rash PSYCH; Flat affect Assessment: 1. Acute hypoxic respiratory insufficiency 2. Congestive heart failure with preserved ejection fraction 3. Acute anemia?anemia secondary to anemia of chronic disorder 4. Obesity with BMI of 48.8 5. Diabetes mellitus type 2 6. Restless leg syndrome 1. Coronary artery disease 8. COPD 9. Obstructive sleep apnea 10. Tobacco dependence 11. Ileus 12DVT prophylaxis Recommendations: 1. I have discussed the results of my overview and impressions with the patient 2. Options for management were reviewed Inpatient E&M: [id number] [facility] Hosp L3
[2020-02-29] MEDS: Atorvastatin Calcium 40 MG Tablet PO (23:25)
[2020-03-01] VITALS (9 sets, daily range): BP systolic 92–124; BP diastolic 48–60; PULSE 69–87; RESP 12–20; TEMP 36.4–36.8; O2SAT 94–98
[2020-03-01 00:05] LABS: Bedside Glucose 102 mg/dL (70-110)
[2020-03-01] MEDS: 0.9% Saline Lock 10 ML Syringe IV (03:33)
[2020-03-01] MEDS: Morphine 2 MG/ML Syringe 1 MG IV (03:33)
[2020-03-01 07:11] LABS: Bedside Glucose 87 mg/dL (70-110)
[2020-03-01] MEDS: Ipratropium/Albuterol Sulfate 3 ML AMPUL.NEB INHALATION ×2 (07:33→13:45)
[2020-03-01] MEDS: Tolterodine Tartrate 2 MG CAP.SA PO (09:28)
[2020-03-01] MEDS: Metoprolol(XL)Succ 25 MG Tablet PO (09:28)
[2020-03-01] MEDS: Pantoprazole Sodium 40 MG Tablet PO (09:28)
[2020-03-01] MEDS: Clopidogrel Bisulfate 75 MG Tablet PO (09:28)
[2020-03-01] MEDS: Citalopram 20 MG Tablet PO (09:28)
[2020-03-01 11:20] LABS: Bedside Glucose 78 mg/dL (70-110)
--- NOTE | 2020-03-01 11:51 | DCINST_ITS ---
- Discharge Diagnoses Current Active Problems: Current Active and Chronic Problems (Last Reviewed 02/26/20 @ 15:11 by Deyanira QUIJANO, PANbaC) CHF (congestive heart failure) (Acute) CAD (coronary artery disease) (Chronic) Morbid obesity (Chronic) COPD (chronic obstructive pulmonary disease) (Chronic) Diabetes (Chronic) Chronic respiratory failure with hypoxia (Chronic) Anemia (Acute) JESSICA (obstructive sleep apnea) (Chronic) History of coronary artery stent placement (Chronic 12/11/19) [id number] RCA 2000 and 2002; PCB-MWA-Oheq RCA 03/22/13; PCI-MUSHTAQ-Mid RCA w/ 3.5 x 12 mm Promus Synergy Stent 12/22/2017; AGJ-CFI-Krukkw LAD w/ 2.25 X 24 mm Promus Synergy and MUSHTAQ- Prox LAD w/ 3.5 X 24 mm Promus Synergy 01/20/2018; DJL-Xdxgtgztekhd-KOC-Mid RCA w/ 3.5 x 20 mm and 3.5 x 8 mm Synergy Stents 12/11/2019 Stenosis of right carotid artery (Chronic) RCEA 07/2014 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) stent the left subclavian with a 7 x 39 [place] Essential (primary) hypertension (Chronic) Hyperlipidemia (Chronic) Nicotine dependence (Chronic) You will use the following diet at home:: Other - Full liquid, advance diet as tolerated Discharge Activity: Return to Normal Activity Call your doctor if you observe: Shortness of breath, Dizziness, Fainting spells, Chest pain Allergies/Adverse Reactions: Allergies aspirin [ASA] Allergy (Severe, Verified 02/25/20 13:55) Hives bupropion [From Wellbutrin] Allergy (Verified 02/25/20 13:55) Unknown codeine Allergy (Verified 02/25/20 13:55) Hives meperidine HCl [From Demerol] Allergy (Verified 02/25/20 13:55) Hives naproxen sodium [From Anaprox] Allergy (Verified 02/25/20 13:55) Hives propoxyphene HCl [From Darvon] Allergy (Verified 02/25/20 13:55) Hives Sulfa (Sulfonamide Antibiotics) Allergy (Verified 02/25/20 13:55) hives, trouble breathing gabapentin Adverse Reaction (Intermediate, Verified 02/25/20 13:55) Mental status change, foggy headed NSAIDS (Non-Steroidal Anti-Inflamma Adverse Reaction (Verified 02/25/20 13:55) Hives Medications to take at Discharge Citalopram [Celexa] 20 mg PO DAILY 02/28/13 Montelukast [Singulair] 10 mg PO QHS PRN 07/08/14 Albuterol IH (ProAir) [Proair Hfa] 2 puff INHALATION Q6H PRN PRN 07/15/14 Atorvastatin Calcium [Lipitor] 40 mg PO QHS 08/17/18 metoprolol succinate 25 mg tablet,extended release 24 hr 12.5 mg PO DAILY tab 12/06/19 midodrine 5 mg tablet 5 mg PO Q8H tab 01/25/20 oxybutynin chloride 10 mg tablet,extended release 24 hr 10 mg PO DAILY 01/25/20 Albuterol Aerosols [Ventolin Aerosols] 2.5 mg INHALATION TID 02/11/20 nitroglycerin 0.4 mg sublingual tablet 0.4 mg SUBLINGUAL Q5M PRN #25 tab 02/11/20 Clopidogrel Bisulfate [Clopidogrel] 75 mg PO DAILY 02/25/20 Hydroxyzine HCl 25 mg PO QHS 02/25/20 Pramipexole Di-HCl [Mirapex] 1.5 mg PO TID 02/25/20 Loperamide [Imodium] 2 mg PO Q4H PRN PRN 02/26/20 Furosemide [Lasix] 40 mg PO DAILY #30 tab 02/29/20 Pantoprazole Sodium [Protonix] 40 mg PO BID #60 tab 02/29/20 Oxycodone [Oxyir] 5 mg PO Q6H PRN PRN 3 Days #10 tablet 03/01/20 The following prescriptions were given: Furosemide [Lasix] 40 mg PO DAILY #30 tab Transmission Status: Received by [id number] Oxycodone [Oxyir] 5 mg PO Q6H PRN PRN 3 Days #10 tablet PRN Reason: Pain Score 6-10 Transmission Status: Received by [id number] Pantoprazole Sodium [Protonix] 40 mg PO BID #60 tab Transmission Status: Received by [id number] Primary Care Physician: Vicente Raya III, MD [Primary Care Provider] - Please follow up with your Primary Care Physician in: 1 Week Test Results: Test results from this visit will be discussed in further detail at your follow- up appointment, if applicable. Please Follow Up With: Marisela Barry PA When: As scheduled 03/11/2020 Please Follow Up With: Vicente Raya III, MD When: Call for follow up Please Follow Up With: MIKE MANCERA Proposed Discharge Date: 02/29/20
--- NOTE | 2020-03-01 12:45 | DS.PCM_ITS ---
<Shelbie Isaac DATA SOFTWARE ENGINEER - Last Filed: 03/01/20 12:58> Discharge Date and Diagnosis - Problem List Patient Problems: Active and Suspected Problems (Last Reviewed 02/26/20 @ 15:11 by Deyanira QUIJANO PA-C) CHF (congestive heart failure) (Acute) Anemia (Acute) Date of Admission: 02/25/20 Date of Discharge: 03/01/20 - Primary Discharge Diagnosis Acute Problems: Active Problems (Last Reviewed 02/26/20 @ 15:11 by MACIE Alford-Ashley) 1. Acute abdominal pain-related to complicated hernias, ileus 2. Acute on chronic hypoxic respiratory insufficiency secondary to acute on chronic heart failure with preserved ejection fraction 3. Acute on chronic normocytic anemia 4. CAD with history of recent stent 12/02/2019 5. Chronic COPD 6. JESSICA 7. Type 2 diabetes mellitus 8. Complicated Hernias- 9. RLS 10. Tobacco dependence - Secondary Discharge Diagnosis Chronic Problems: Chronic Problems (Last Reviewed 02/26/20 @ 15:11 by PADMINI AlfordC) CAD (coronary artery disease) (Chronic) Morbid obesity (Chronic) COPD (chronic obstructive pulmonary disease) (Chronic) Diabetes (Chronic) Chronic respiratory failure with hypoxia (Chronic) JESSICA (obstructive sleep apnea) (Chronic) Atherosclerosis of coronary artery of elim ira heart without angina pectoris (Chronic) History of coronary artery stent placement (Chronic 12/11/19) [id number]-Dfgaqk RCA 2000 and 2002; KMT-COW-Wvda RCA 03/22/13; PCI-MUSHTAQ-Mid RCA w/ 3.5 x 12 mm Promus Synergy Stent 12/22/2017; XPK-CQI-Traqlk LAD w/ 2.25 X 24 mm Promus Synergy and MUSTHAQ- Prox LAD w/ 3.5 X 24 mm Promus Synergy 01/20/2018; EVA-Bnfesenjlqfe-XTE-Mid RCA w/ 3.5 x 20 mm and 3.5 x 8 mm Synergy Stents 12/11/2019 Stenosis of right carotid artery (Chronic) RCEA 07/2014 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 Electronically Signed: Emanuel Ventura, at 15:22 EST , Service support , KUB X-Ray 02/28/20 12:58 IMPRESSION: Findings suggestive of an ileus gas pattern. Electronically Signed: Emanuel Ventura, at 14:40 EST , Service support , Abdomen/Pelvis CT 02/29/20 16:31 IMPRESSION: Small bowel obstruction with the transition point likely within the patient''s ventral hernia. This is similar in appearance to the prior exam. No free air, free fluid or fluid collection. Bibasilar pulmonary opacities which may be due to atelectasis or infection. Clinical correlation is recommended. Electronically Signed: Mike Alvarez, at 17:21 EST Tel , Service support , Dr. Roth- General surgery Operations: None Procedures: 2-D Echocardiogram, EGD Summary of Care Provided: The patient is a 79 year old F admitted 02/25/2020 due to shortness of breath. 1. Acute abdominal pain-patient has complicated hernias, ileostomy in place. KUB demonstrated ileus, CT of abdomen showed small bowel obstruction with a transition point likely within the patient's ventral hernia. Patient was educated by surgery how to reduce hernia. She denies further abdominal pain. Tolerating diet. She will need further follow-up with [facility] for ongoing evaluation and surgical evaluation. Surgery placed on hold due to cardiac stent placement November 2019. Follow-up with PCP in 1 week. Patient to call [facility] for follow-up. 2. Acute on chronic hypoxic respiratory insufficiency secondary to acute on chronic heart failure with preserved ejection fraction-echocardiogram with EF 65%, mild to moderate mitral valve insufficiency. IV Lasix during admission. Patient will require increase in baseline home O2 requirements, previously on 2 L continuously and will be discharged on 3 L continuously. She is ambulatory in the home. Transition to oral Lasix regimen at discharge. Patient has upcoming follow-up with cardiology 03/11/2020. 3. Acute on chronic normocytic anemia-EGD unremarkable. Continue PPI empirically. Follow-up as needed with general surgery. Hemoglobin stable. 4. CAD with history of recent stent 12/02/2019-continue Plavix, statin, metoprolol. 5. Chronic COPD-no exacerbation. As needed albuterol aerosol. 6. JESSICA-previously on BiPAP which was taken away due to noncompliance. BiPAP nightly. 7. Type 2 diabetes mellitus- Diet controlled following prior gastric bypass. 8. Hernia- reducible. Ostomy intact. Follows with [facility]. Follow-up with [facility]/surgeon at discharge as noted above. 9. RLS-on Mirapex. 10. Tobacco dependence-encourage cessation. General: Alert, Oriented x3, Cooperative HEENT: Atraumatic, PERRLA, EOMI, Normocephalic Neck: Supple, No JVD, Negative Carotid Bruits Lungs: Clear to auscultation, Diminished Cardiovascular: No murmurs, normal rate Abdomen: Bowel Sounds Present, Soft, Non Tender, Non-Distended, Hernia, Ostomy intact Extremities: No clubbing, No cyanosis, No edema, Capillary Refill Less than 3 Seconds Skin: No rashes, No breakdown Musculoskeletal: No Tenderness to Palpation of Joints or Extremities Neurological: Cranial nerves II-XII grossly intact, Neuro grossly intact Psych/Mental Status: Normal Affect, Appropriate Patient seen and examined prior to discharge. Physical assessment as noted above. Patient is stable for discharge with follow up recommendations as noted above. This patient was seen by ELIO Esposito under the supervision of Dr. Marcus oviedo. Patient Problems: Active and Suspected Problems (Last Reviewed 02/26/20 @ 15:11 by Deyanira QUIJANO PA-C) CHF (congestive heart failure) (Acute) Anemia (Acute) - Physical Exam Vitals/I&O's: Vital Signs Temp Pulse Resp BP Pulse Ox 98.0 F 78 12 107/54 L 94 03/01/20 08:22 03/01/20 09:28 03/01/20 08:36 03/01/20 09:28 03/01/20 08:22 Oxygen Flow Rate (L/min) [ 2 AMBULATION with Oxygen] Oxygen Flow Rate (L/min) [At 0 REST on Room Air] Oxygen Flow Rate (L/min) 3 Oxygen Delivery Method Nasal Cannula Weight: 224 lb 3.362 oz Body Mass Index (BMI) 48.8 Finger Stick Blood Glucose 88 Intake and Output for Last 24 Hours 02/28/20 02/29/20 03/01/20 23:59 23:59 23:59 Intake Total 950 / 950 240 / 290 50 / 50 Output Total 2550 / 3200 1050 / 1700 650 / 650 Balance -1600 / -2250 -810 / -1410 -600 / -600 Microbiology Past 72 Hours 02/28/20 13:05 Sputum, Expectorated/Coughed Gram Stain - Final 02/28/20 13:05 Sputum, Expectorated/Coughed Respiratory Culture - Preliminary Presumptive C albicans 02/25/20 15:45 Blood Culture (Wb) #2 - Left Hand Blood Culture - Preliminary No growth in 48 hours. 02/25/20 15:34 Blood Culture (Wb) - Right Hand Blood Culture - Preliminary No growth in 48 hours. Laboratory Results 02/29/20 16:04: POC Glucose 109 02/29/20 23:23: POC Glucose 102 03/01/20 07:03: POC Glucose 87 03/01/20 11:01: POC Glucose 78 Current Medications Acetaminophen (Acetaminophen 325 Mg Tablet) 650 mg PO Q6H PRN PRN PRN Reason: Pain Score 1-10/Temp > 100.7 F Last Admin: 02/29/20 14:41 Dose: 650 mg Documented by: Al Hydroxide/Mg Hydroxide (Mag Hydrox/Al Hydrox/Simeth 30 Ml Udc) 30 ml PO Q6H PRN PRN PRN Reason: Gastric Burning Albuterol Sulfate (Albuterol 2.5 Mg/3 Ml Vial.Neb.) 2.5 mg INHALATION Q2H PRN PRN PRN Reason: Dyspnea, wheezing Last Admin: 02/27/20 16:38 Dose: 2.5 mg Documented by: Albuterol/Ipratropium (Ipratropium/Albuterol Sulfate 3 Ml Ampul.Neb) 3 ml INHALATION Q6HWA.RT RADHA Last Admin: 03/01/20 07:33 Dose: 3 ml Documented by: Atorvastatin Calcium (Atorvastatin Calcium 40 Mg Tablet) 40 mg PO QHS RADHA Last Admin: 02/29/20 23:25 Dose: 40 mg Documented by: Citalopram Hydrobromide (Citalopram 20 Mg Tablet) 20 mg PO DAILY [facility], [facility] Last Admin: 03/01/20 09:28 Dose: 20 mg Documented by: Clopidogrel Bisulfate (Clopidogrel Bisulfate 75 Mg Tablet) 75 mg PO DAILY [facility], [facility] Last Admin: 03/01/20 09:28 Dose: 75 mg Documented by: Dextrose (Dextrose 50%-Water 25 Gm/50 Ml Disp.Syrin) 0 gm IV X1 PRN; Protocol PRN Reason: Hypoglycemia Glucagon (Glucagon 1 Mg/Ml Syringe) 1 mg IM .X1 PRN PRN Reason: Hypoglycemia Guaifenesin (Guaifenesin 10 Ml Udc (200mg/10ml)) 20 ml PO Q4H PRN PRN PRN Reason: COUGH Hydralazine HCl (Hydralazine 20 Mg/Ml Vial) 10 mg IV Q4H PRN PRN PRN Reason: SBP > 160 Insulin Human Lispro (Insulin Lispro 100 Unit/Ml Insuln.Pen) 0 unit SC ACHS [facility], [facility]; Protocol Last Admin: 03/01/20 11:02 Dose: Not Given Documented by: Loperamide HCl (Loperamide 2 Mg Capsule) 2 mg PO Q4H PRN PRN PRN Reason: Diarrhea Magnesium Hydroxide (Magnesium Hydroxide 30 Ml Udc) 30 ml PO DAILY PRN PRN PRN Reason: Constipation Melatonin (Melatonin 3 Mg Tablet) 3 mg PO QHS PRN PRN PRN Reason: INSOMNIA Last Admin: 02/27/20 21:38 Dose: 3 mg Documented by: Metoprolol Succinate (Metoprolol(Xl)Succ 25 Mg Tablet) 25 mg PO DAILY [facility] Last Admin: 03/01/20 09:28 Dose: 25 mg Documented by: Midodrine (Midodrine Hcl 5 Mg Tablet) 5 mg PO Q8 [facility] Last Admin: 03/01/20 05:28 Dose: Not Given Documented by: Montelukast Sodium (Montelukast 10 Mg Tablet) 10 mg PO QHS PRN PRN Reason: ALLERGIES Morphine Sulfate (Morphine 2 Mg/Ml Syringe) 1 mg IV Q3H PRN PRN PRN Reason: Pain Score 6-10 Last Admin: 03/01/20 03:33 Dose: 1 mg Documented by: Nitroglycerin (Nitroglycerin (Inpatient Use) 0.4 Mg Tab.Subl) 0.4 mg SUBLINGUAL Q5M PRN PRN Reason: CARDIAC/CHEST PAIN Ondansetron HCl (Ondansetron 4 Mg/2 Ml Vial) 4 mg IV Q8H PRN PRN PRN Reason: NAUSEA/VOMITING Last Admin: 02/29/20 14:59 Dose: 4 mg Documented by: Oxycodone HCl (Oxycodone 5 Mg Tablet) 5 mg PO Q6H PRN PRN PRN Reason: Pain Score 6-10 Last Admin: 02/28/20 04:30 Dose: 5 mg Documented by: Pantoprazole Sodium (Pantoprazole Sodium 40 Mg Tablet) 40 mg PO BID [facility], [facility] Last Admin: 03/01/20 09:28 Dose: 40 mg Documented by: Pramipexole Dihydrochloride (Pramipexole Di-Hcl 0.5 Mg Tablet) 1.5 mg PO TID [facility], [facility] Last Admin: 03/01/20 05:28 Dose: Not Given Documented by: Prochlorperazine Edisylate (Prochlorperazine 10 Mg/2 Ml Vial) 5 mg IV Q4H PRN PRN PRN Reason: Breakthrough Nausea/Vomiting Last Admin: 02/28/20 22:15 Dose: 5 mg Documented by: Psyllium Hydrophilic Mucilloid (Psyllium 1 Packet) 1 packet PO DAILY PRN PRN PRN Reason: Constipation Senna/Docusate Sodium (Senna/Docusate Sodium 1 Tablet) 2 tablet PO BID PRN PRN PRN Reason: Constipation Sodium Chloride (0.9% Saline Lock 10 Ml Syringe) 10 - 40 ml IV UD PRN PRN Reason: SALINE FLUSH Last Admin: 03/01/20 03:33 Dose: 10 ml Documented by: Throat Lozenges (Benzocaine/Menthol 1 Lozenge) 1 lozenge MUCOUS MEM Q2H PRN PRN PRN Reason: SORE THROAT Tolterodine Tartrate (Tolterodine Tartrate 2 Mg Cap.Sa) 2 mg PO DAILY [facility], [facility] Last Admin: 03/01/20 09:28 Dose: 2 mg Documented by: Discharge Diet: Low fat/ Low Cholesterol, Carb Control Diet Discharge Activity: Return to Normal Activity Call your doctor if you observe: Shortness of breath, Dizziness, Fainting spells, Chest pain Home Medications: Medications to take at Discharge Citalopram [Celexa] 20 mg PO DAILY 02/28/13 Montelukast [Singulair] 10 mg PO QHS PRN 07/08/14 Albuterol IH (ProAir) [Proair Hfa] 2 puff INHALATION Q6H PRN PRN 07/15/14 Atorvastatin Calcium [Lipitor] 40 mg PO QHS 08/17/18 metoprolol succinate 25 mg tablet,extended release 24 hr 12.5 mg PO DAILY tab 12/06/19 midodrine 5 mg tablet 5 mg PO Q8H tab 01/25/20 oxybutynin chloride 10 mg tablet,extended release 24 hr 10 mg PO DAILY 01/25/20 Albuterol Aerosols [Ventolin Aerosols] 2.5 mg INHALATION TID 02/11/20 nitroglycerin 0.4 mg sublingual tablet 0.4 mg SUBLINGUAL Q5M PRN #25 tab 02/11/20 Clopidogrel Bisulfate [Clopidogrel] 75 mg PO DAILY 02/25/20 Hydroxyzine HCl 25 mg PO QHS 02/25/20 Pramipexole Di-HCl [Mirapex] 1.5 mg PO TID 02/25/20 Loperamide [Imodium] 2 mg PO Q4H PRN PRN 02/26/20 Furosemide [Lasix] 40 mg PO DAILY #30 tab 02/29/20 Pantoprazole Sodium [Protonix] 40 mg PO BID #60 tab 02/29/20 Oxycodone [Oxyir] 5 mg PO Q6H PRN PRN 3 Days #10 tab 03/01/20 Following Prescriptions Were Given to Patient: Furosemide [Lasix] 40 mg PO DAILY #30 tab Transmission Status: Received by [id number] Oxycodone [Oxyir] 5 mg PO Q6H PRN PRN 3 Days #10 tab PRN Reason: Pain Score 6-10 Transmission Status: Received by [facility] Pantoprazole Sodium [Protonix] 40 mg PO BID #60 tab Transmission Status: Received by [id number] Primary Care Physician: Vicente Raya III, MD [Primary Care Provider] - Please follow up with your Primary Care Physician in: 1 Week Please Follow Up With: Marisela Barry PA When: As scheduled 03/11/2020 Please Follow Up With: [facility] When: Call for follow up Disposition: Home Minutes spent on discharge:: 35 Patient Condition:: Stable Medical Necessity - Tobacco Use Smoking Status: Current every day smoker Tobacco Use: Cigarettes Meaningful Use Info Meaningful Use Diagnoses (Choose all that apply): CHF - CHF MAURO/ARB ordered at discharge?: No Reason MAURO/ARB not ordered?: Hypotension Documented LVEF (%): 65 <Casey Holbrook - Last Filed: 03/01/20 13:46> Discharge Date and Diagnosis - Primary Discharge Diagnosis Acute Problems: Active Problems (Last Reviewed 02/26/20 @ 15:11 by Deyanira QUIJANO PA-C) CHF (congestive heart failure) (Acute) Anemia (Acute) - Secondary Discharge Diagnosis Chronic Problems: Chronic Problems (Last Reviewed 02/26/20 @ 15:11 by Deyanira QUIJANO PA-C) CAD (coronary artery disease) (Chronic) Morbid obesity (Chronic) COPD (chronic obstructive pulmonary disease) (Chronic) Diabetes (Chronic) Chronic respiratory failure with hypoxia (Chronic) JESSICA (obstructive sleep apnea) (Chronic) Atherosclerosis of coronary artery of elim ir[place] heart without angina pectoris (Chronic) History of coronary artery stent placement (Chronic 12/11/19) CPO-YCA-Evqnhg RCA 2000 and 2002; XCV-IWP-Gssk RCA 03/22/13; PCI-MUSHTAQ-Mid RCA w/ 3.5 x 12 mm Promus Synergy Stent 12/22/2017; SEN-ACH-Mhuqwh LAD w/ 2.25 X 24 mm Promus Synergy and MUSHTAQ- Prox LAD w/ 3.5 X 24 mm Promus Synergy 01/20/2018; LFC-Hgqobushswor-ZCC-Mid RCA w/ 3.5 x 20 mm and 3.5 x 8 mm Synergy Stents 12/11/2019 Stenosis of right carotid artery (Chronic) RCEA 07/2014 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 I have independently interviewed and examined the patient and reviewed pertinent historical, laboratory, and other data. Please refer to ELIO Esposito note for details of this patient's presentation, findings, and recommendations. I have reviewed ELIO Esposito note and concur with documented findings. In brief, patient is a 79-year-old lady with multiple comorbidities admitted with progressive shortness of breath and assessment of acute hypoxic respiratory insufficiency secondary to congestive heart failure with preserved ejection fraction made. Patient was also found to have significant anemia and was transf used with 1 unit PRBC Assessment: 1. Acute hypoxic respiratory insufficiency 2. Congestive heart failure with preserved ejection fraction 3. Acute anemia?anemia secondary to anemia of chronic disorder 4. Obesity with BMI of 48.8 5. Diabetes mellitus type 2 6. Restless leg syndrome 1. Coronary artery disease 8. COPD 9. Obstructive sleep apnea 10. Tobacco dependence 11. Ileus 12. DVT prophylaxis Hospital course: As documented above - Physical Exam Vitals/I&O's: Vital Signs Temp Pulse Resp BP Pulse Ox 98.2 F 84 12 124/60 H 95 03/01/20 13:02 03/01/20 13:02 03/01/20 13:02 03/01/20 13:02 03/01/20 13:02 Oxygen Flow Rate (L/min) [ 2 AMBULATION with Oxygen] Oxygen Flow Rate (L/min) [At 0 REST on Room Air] Oxygen Flow Rate (L/min) 3 Oxygen Delivery Method Room Air Weight: 101.7 kg Body Mass Index (BMI) 48.8 Finger Stick Blood Glucose 88 Intake and Output for Last 24 Hours 02/28/20 02/29/20 03/01/20 23:59 23:59 23:59 Intake Total 950 / 950 240 / 290 50 / 50 Output Total 2550 / 3200 1050 / 1700 650 / 650 Balance -1600 / -2250 -810 / -1410 -600 / -600 Microbiology Past 72 Hours 02/28/20 13:05 Sputum, Expectorated/Coughed Gram Stain - Final 02/28/20 13:05 Sputum, Expectorated/Coughed Respiratory Culture - Preliminary Presumptive C albicans 02/25/20 15:45 Blood Culture (Wb) #2 - Left Hand Blood Culture - Preliminary No growth in 48 hours. 02/25/20 15:34 Blood Culture (Wb) - Right Hand Blood Culture - Preliminary No growth in 48 hours. Laboratory Results 02/29/20 16:04: POC Glucose 109 02/29/20 23:23: POC Glucose 102 03/01/20 07:03: POC Glucose 87 03/01/20 11:01: POC Glucose 78 Current Medications Acetaminophen (Acetaminophen 325 Mg Tablet) 650 mg PO Q6H PRN PRN PRN Reason: Pain Score 1-10/Temp > 100.7 F Last Admin: 02/29/20 14:41 Dose: 650 mg Documented by: Al Hydroxide/Mg Hydroxide (Mag Hydrox/Al Hydrox/Simeth 30 Ml Udc) 30 ml PO Q6H PRN PRN PRN Reason: Gastric Burning Albuterol Sulfate (Albuterol 2.5 Mg/3 Ml Vial.Neb.) 2.5 mg INHALATION Q2H PRN PRN PRN Reason: Dyspnea, wheezing Last Admin: 02/27/20 16:38 Dose: 2.5 mg Documented by: Albuterol/Ipratropium (Ipratropium/Albuterol Sulfate 3 Ml Ampul.Neb) 3 ml INHALATION Q6HWA.RT RADHA Last Admin: 03/01/20 13:45 Dose: 3 ml Documented by: Atorvastatin Calcium (Atorvastatin Calcium 40 Mg Tablet) 40 mg PO QHS [facility], [facility] Last Admin: 02/29/20 23:25 Dose: 40 mg Documented by: Citalopram Hydrobromide (Citalopram 20 Mg Tablet) 20 mg PO DAILY [facility], [facility] Last Admin: 03/01/20 09:28 Dose: 20 mg Documented by: Clopidogrel Bisulfate (Clopidogrel Bisulfate 75 Mg Tablet) 75 mg PO DAILY [facility] Last Admin: 03/01/20 09:28 Dose: 75 mg Documented by: Dextrose (Dextrose 50%-Water 25 Gm/50 Ml Disp.Syrin) 0 gm IV X1 PRN; Protocol PRN Reason: Hypoglycemia Glucagon (Glucagon 1 Mg/Ml Syringe) 1 mg IM .X1 PRN PRN Reason: Hypoglycemia Guaifenesin (Guaifenesin 10 Ml Udc (200mg/10ml)) 20 ml PO Q4H PRN PRN PRN Reason: COUGH Hydralazine HCl (Hydralazine 20 Mg/Ml Vial) 10 mg IV Q4H PRN PRN PRN Reason: SBP > 160 Insulin Human Lispro (Insulin Lispro 100 Unit/Ml Insuln.Pen) 0 unit SC ACHS [facility], [facility]; Protocol Last Admin: 03/01/20 11:02 Dose: Not Given Documented by: Loperamide HCl (Loperamide 2 Mg Capsule) 2 mg PO Q4H PRN PRN PRN Reason: Diarrhea Magnesium Hydroxide (Magnesium Hydroxide 30 Ml Udc) 30 ml PO DAILY PRN PRN PRN Reason: Constipation Melatonin (Melatonin 3 Mg Tablet) 3 mg PO QHS PRN PRN PRN Reason: INSOMNIA Last Admin: 02/27/20 21:38 Dose: 3 mg Documented by: Metoprolol Succinate (Metoprolol(Xl)Succ 25 Mg Tablet) 25 mg PO DAILY [facility] Last Admin: 03/01/20 09:28 Dose: 25 mg Documented by: Midodrine (Midodrine Hcl 5 Mg Tablet) 5 mg PO Q8 [facility] Last Admin: 03/01/20 05:28 Dose: Not Given Documented by: Montelukast Sodium (Montelukast 10 Mg Tablet) 10 mg PO QHS PRN PRN Reason: ALLERGIES Morphine Sulfate (Morphine 2 Mg/Ml Syringe) 1 mg IV Q3H PRN PRN PRN Reason: Pain Score 6-10 Last Admin: 03/01/20 03:33 Dose: 1 mg Documented by: Nitroglycerin (Nitroglycerin (Inpatient Use) 0.4 Mg Tab.Subl) 0.4 mg SUBLINGUAL Q5M PRN PRN Reason: CARDIAC/CHEST PAIN Ondansetron HCl (Ondansetron 4 Mg/2 Ml Vial) 4 mg IV Q8H PRN PRN PRN Reason: NAUSEA/VOMITING Last Admin: 02/29/20 14:59 Dose: 4 mg Documented by: Oxycodone HCl (Oxycodone 5 Mg Tablet) 5 mg PO Q6H PRN PRN PRN Reason: Pain Score 6-10 Last Admin: 02/28/20 04:30 Dose: 5 mg Documented by: Pantoprazole Sodium (Pantoprazole Sodium 40 Mg Tablet) 40 mg PO BID [facility] Last Admin: 03/01/20 09:28 Dose: 40 mg Documented by: Pramipexole Dihydrochloride (Pramipexole Di-Hcl 0.5 Mg Tablet) 1.5 mg PO TID [facility] Last Admin: 03/01/20 05:28 Dose: Not Given Documented by: Prochlorperazine Edisylate (Prochlorperazine 10 Mg/2 Ml Vial) 5 mg IV Q4H PRN PRN PRN Reason: Breakthrough Nausea/Vomiting Last Admin: 02/28/20 22:15 Dose: 5 mg Documented by: Psyllium Hydrophilic Mucilloid (Psyllium 1 Packet) 1 packet PO DAILY PRN PRN PRN Reason: Constipation Senna/Docusate Sodium (Senna/Docusate Sodium 1 Tablet) 2 tablet PO BID PRN PRN PRN Reason: Constipation Sodium Chloride (0.9% Saline Lock 10 Ml Syringe) 10 - 40 ml IV UD PRN PRN Reason: SALINE FLUSH Last Admin: 03/01/20 03:33 Dose: 10 ml Documented by: Throat Lozenges (Benzocaine/Menthol 1 Lozenge) 1 lozenge MUCOUS MEM Q2H PRN PRN PRN Reason: SORE THROAT Tolterodine Tartrate (Tolterodine Tartrate 2 Mg Cap.Sa) 2 mg PO DAILY [facility] Last Admin: 03/01/20 09:28 Dose: 2 mg Documented by: Inpatient E&M: [id number] Disch Hosp
[2020-03-01] MEDS: Pramipexole Di-HCl 0.5 MG Tablet 1.5 MG PO (14:06)
[2020-03-01] MEDS: Midodrine HCl 5 MG Tablet PO (14:06)
--- NOTE | 2020-03-03 14:00 | CASEMGMT ---
SHANELLE LAGUNA Discharge F/U Phone Call LACE: 15 Strata: 4 Discharge date: 03/01/2020 Call date: 03/03/2020 Call time: [phone] Admission dx: CHF exacerbation, Anemia, COPD Pt states 'I am not getting around as good as I thought I would.' Pt states no questions regarding discharge instructions or medications at this time. Pt states her daughter is setting appt up with PCP and hernia surgeon as well as cardiology. Pt states no suggestions for [facility] and states 'I had a fantastic day and everyone was super nice.' Pt's only complaint is the food. Pt voices no further questions/concerns/needs at this time. [place] SHANELLE LAGUNA
== END 2020-03-01 15:40 | disposition home or self-care (01) | DRG 292 ==
LOC: ED 15:19 → PCU 17:14
PROVIDERS: Anesthesiology; Nurse Practitioner Family; Physician Assistant; Surgery; Admitting Provider Family Medicine; Emergency Provider Emergency Medicine; PCP Family Medicine; Visit Provider Internal Medicine
PROC: 0DJ08ZZ Inspection of Upper Intestinal Tract, Via Natural or Artificial Opening Endoscopic (ICD-10-PCS; CPT 43235; principal; 2020-02-27 12:40)
DX: I11.0 Hypertensive heart disease with heart failure (principal); Z68.42 Body mass index [BMI] 45.0-49.9, adult; J96.11 Chronic respiratory failure with hypoxia; K56.7 Ileus, unspecified; K46.0 Unspecified abdominal hernia with obstruction, without gangrene; I50.33 Acute on chronic diastolic (congestive) heart failure; D50.9 Iron deficiency anemia, unspecified; I25.10 Atherosclerotic heart disease of native coronary artery without angina pectoris; Z95.5 Presence of coronary angioplasty implant and graft; G47.33 Obstructive sleep apnea (adult) (pediatric); E11.9 Type 2 diabetes mellitus without complications; G25.81 Restless legs syndrome; K21.9 Gastro-esophageal reflux disease without esophagitis; Z79.51 Long term (current) use of inhaled steroids; Z79.899 Other long term (current) drug therapy; E66.01 Morbid (severe) obesity due to excess calories; Z98.84 Bariatric surgery status; F17.210 Nicotine dependence, cigarettes, uncomplicated; J44.9 Chronic obstructive pulmonary disease, unspecified; Z91.19 Patient's noncompliance with other medical treatment and regimen; R91.1 Solitary pulmonary nodule; E78.5 Hyperlipidemia, unspecified; F32.9 Major depressive disorder, single episode, unspecified; F41.9 Anxiety disorder, unspecified; Z66 Do not resuscitate; Z90.49 Acquired absence of other specified parts of digestive tract; D63.8 Anemia in other chronic diseases classified elsewhere; Z93.2 Ileostomy status; K43.5 Parastomal hernia without obstruction or gangrene
CPT/HCPCS: 36415; 71045; 74018; 74176; 80048; 80053; 80061; 82274; 82728; 82962; 83036; 83540; 83550; 83605; 83735; 83880; 84443; 84484; 85025; 85027; 85610; 85730; 86644; 86850; 86900; 86901; 86920; 86922; 87040; 87070; 87205; 87633; 87635; 93005; 93306; 94640; 97110; 97162; 97166; 97535; 97802; 99285; 99406; J7030; J7040; J7050; J7120; P9016; Q9957; A4216; C8929; J1940; J2405; J2916; U0002

== ENCOUNTER 2020-03-13 19:48 | Emergency (ER) | payer MEDICARE, SELFPAY ==
[2017-12-22 12:49] VITALS: BMI 49.4
[2020-03-11 14:39] VITALS: BMI 39.1
[2020-03-13 19:51] VITALS: BP 118/78; PULSE 113; RESP 15; TEMP 36.3; O2SAT 94; BMI 40.6
--- NOTE | 2020-03-13 20:02 | CT_ITS ---
STUDY: CT ABDOMEN AND PELVIS WITH CONTRAST REASON FOR EXAM: Female, 79 years old. N/V/ PAIN. Patient able to drink small amount of gastrografin. Prior hernia repair, barikatric surgery, ileostomy, cholecystectomy and multiple heart stents RADIATION DOSAGE (If Supplied By Facility): CTDIvol = ( 16.90 ) mGy, DLP = ( 1243.20 ) mGycm TECHNIQUE: Transaxial images were obtained from the dome of the diaphragm to the symphysis pubis without oral contrast. Oral and amp; IV Gastrografin and amp; 75mL Isovue-300 was administered. Sagittal and coronal images were reconstructed. Individualized dose optimization techniques were used for this CT. COMPARISON: 02/29/2020 FINDINGS: There is minor interstitial thickening in both lower lobes.. The visualized portions of the heart are within normal limits. Small hiatal hernia is present. Liver is normal size and homogeneous attenuation without mass. There is bile duct dilatation in association with prior cholecystectomy. . Normal spleen. Normal pancreas. Normal bilateral adrenal glands. No evidence for renal obstruction. There is a simple cyst in the right kidney Postsurgical changes status post gastric bypass and partial colectomy with right-sided ileostomy... There are multiple fluid-filled distended loops of small bowel proximal to the ileostomy in association with a parastomal hernia also containing distended small bowel. The ileostomy loop is decompressed suspicious for obstruction. Atherosclerotic changes of the aorta without evidence for aneurysm.. Normal inferior vena cava. Normal retroperitoneum. Normal urinary bladder. Moderate-sized umbilical hernia containing small bowel.. Lumbar spine demonstrates degenerative change. CT/Abdomen/Pelvis WITH Contrast IMPRESSION: Postsurgical changes status post bariatric surgery and partial resection of the colon with ileostomy creation in right lower quadrant. There are multiple distended fluid-filled loops of small bowel proximal to the ileostomy loop which is decompressed suspicious for proximal obstruction. Clinical correlation is recommended Electronically Signed: Gabino Marques MD at 22:50 EST , Service support ,
--- NOTE | 2020-03-13 20:06 | ED.DCSUM_ITS ---
History of Present Illness Chief Complaint: Abd Pain Narrative: Patient is a 79-year-old female who presents to the emergency department for diffuse abdominal pain. This started last night. She states that she does have a history of abdominal hernias. She does have a history of a ileostomy being placed in the past year at the [facility]. She states that she has had chronic abdominal pain for the past year and a half that comes and goes. She follows with the [facility] and id supposed to have these hernias operated on sometime in May. The surgery was initially delayed because she was started on blood thinners after she had stents placed. She currently rates her pain is 10 out of 10. No one spot hurts worse than another. States she has been nauseous but dry heaving. She felt like her ostomy was backed up. No blood or melena present. She denies any fevers. She has not tried taking anything for her pain. She did call the surgeon's office who told her to come to the ED if her pain persisted for greater than 12 hours. Past Medical History - Allergies and Home Meds Allergies/Adverse Reactions: Allergies aspirin [ASA] Allergy (Severe, Verified 03/13/20 20:08) Hives ferrous sulfate Allergy (Intermediate, Verified 03/13/20 20:09) Hives bupropion [From Wellbutrin] Allergy (Verified 03/13/20 20:09) headache codeine Allergy (Verified 03/13/20 20:09) Hives meperidine HCl [From Demerol] Allergy (Verified 03/13/20 20:10) Hives naproxen sodium [From Anaprox] Allergy (Verified 03/13/20 20:10) Hives propoxyphene HCl [From Darvon] Allergy (Verified 03/13/20 20:11) Hives Sulfa (Sulfonamide Antibiotics) Allergy (Verified 03/13/20 20:11) hives, trouble breathing gabapentin Adverse Reaction (Intermediate, Verified 03/13/20 20:12) Mental status change, foggy headed NSAIDS (Non-Steroidal Anti-Inflamma Adverse Reaction (Verified 02/25/20 13:55) Hives Primary Care Physician: Vicente Raya III, MD [Primary Care Provider] - Prior records reviewed: Yes Surgical History: angioplasty, colectomy Smoking Status: Former smoker - Family History Maternal Family History: Family History (Last Reviewed 03/11/20 @ 14:53 by Toma Archer) Mother CVA (cerebral vascular accident) Father Asthma Hypertension High blood cholesterol level Arthritis Family History: Reports: Stroke Review of Systems All systems negative except as indicated General: Reports: Chills. Denies: Fever, Sweats Eyes: Denies: Visual changes - bilaterally, Diplopia ENT: Denies: Rhinorrhea, Sore throat Cardiovascular: Denies: Chest pain, Palpitations Respiratory: Denies: Dyspnea, Cough, Dyspnea on exertion Gastrointestinal: Reports: Abdominal pain, Nausea, Vomiting. Denies: Melena, Hematochezia Genitourinary: Denies: Dysuria, Hematuria, Frequency Musculoskeletal: Denies: Back pain, Extremity Pain Skin: Denies: Rash, Wounds Neurological: Denies: Headache, Weakness, Numbness Physical Exam Vital Signs/Narrative: Vital Signs Temp Pulse Resp BP Pulse Ox 03/13/20 19:51 97.4 F L 113 H 15 118/78 94 Inital Vital Signs reviewed: Yes General: Well nourished, Well developed, No Acute Distress Head: Normocephalic, Atraumatic Eyes: Perrl, EOMI ENT: Moist mucous membranes, No rhinorrhea Neck: Supple, Nontender Cardiovascular: Regular rhythm, No murmurs, Tachycardia Respiratory: No distress, CTA bilaterally, Chest nontender Abdomen: Soft, Nondistended, Normal bowel sounds, Tender - Tenderness is diffuse to light palpation., - - Brown stool present in ostomy bag. There are hernias surrounding the ostomy site.. Negative for: Guarding Back: Nontender, Normal Inspection Extremities: Nontender, No edema Skin: Normal color, No rash Neurological: Alert, Oriented x3, Normal Strength, Normal Sensation Psychological: Normal affect, Normal Mood Diagnostic/Tx/Re-eval - Medical Decision Making Patient presents to the ED for acute on chronic exacerbation of her abdominal pain. Upon arrival to the emergency department she is mildly tachycardic but otherwise normal vital signs. Will check basic lab work and CT scan of the abdomen/pelvis. She does have morphine listed as an allergy but she states that that was a mistake and she is able to take this. We will start IV fluids as well. Patient's lab work shows mild increase in her creatinine compared to her baseline. Her white blood cell count is elevated as well. Her lactic acid within normal limits. CT scan obtained which did show the hernias but there is concern for obstruction. I did consult the general surgeon on-call but since she is a patient of the [facility] it was advised that she go back there. On reexamination she is feeling better but still having 4 out of 10 abdominal pain. I did discuss having to transfer and she is agreeable with this. She was previously seeing colorectal surgery at the [facility] but she is now supposed to see the general surgeon, Dr. Finney, for the hernia repair. We did page the surgeon for transfer. Currently waiting callback. Will sign out patient due to end of shift. ED Disposition - Plan for ED Patient: Disposition: [facility] - Main Diagnosis: Abdominal hernia with obstruction, Abdominal pain Referrals: Vicente Raya III, MD [Primary Care Provider] -
[2020-03-13] MEDS: Morphine 4 MG/ML Syringe IV (20:28)
[2020-03-13] MEDS: 0.9% Normal Saline 1,000 ML 999 ML IV (20:31)
[2020-03-13] MEDS: Ondansetron 4 MG/2 ML Vial IV (20:47)
[2020-03-13 20:50] LABS: Bacteria 0 SEEN /hpf (None Seen); Mucous, Urine 0 SEEN /hpf (<or=2+); White Blood Cells 0 SEEN /hpf (0-5)
[2020-03-13 20:52] LABS: Color, Urine Yellow (Yellow); Glucose, Dipstick Normal (Normal); Ketone-Dipstick Negative (Negative); Leukocyte Esterase-Dipstick Negative /ul (Negative); Nitrite-Dipstick Negative (Negative); Occult Blood-Urine 10 /ul (Negative); Protein-Dipstick 100 mg/dl (Negative); Urine Clarity Sl. Cloudy (Clear); Urine Urobilinogen Normal (Normal)
[2020-03-13 20:53] LABS: Absolute Lymphocyte Count 1.43 X10^3/uL (0.83-4.51); Absolute Neutrophil Count 11.6 X10^3/uL (2.0-7.7); Basophil# 0.09 X10^3/uL; Basophil% 0.6 % (0-1); Eosinophil# 0.06 X10^3/uL; Eosinophils% 0.4 % (0-5); Hematocrit 39.8 % (37-47); Hemoglobin 11.9 g/dL (12.0-15.0); Lymphocyte # 1.43 X10^3/ul (4.0); Lymphocyte % 10.1 % (19-41); Mean Corp Hgb Conc 29.9 g/dL (32-36); Mean Corpuscular Hgb 25.2 pg (27.0-32.0); Mean Corpuscular Volume 84.3 fL (81-99); Monocyte# 0.82 X10^3/uL; Monocyte% 5.8 % (0-10); NRBC Flagged by Analyzer 0 % (0-5); Neutrophil # 11.61 X10^3/uL (2.7-7.7); Platelet Count 473 K/mm3 (150-450); RBC Distribution Width CV 19.5 % (11.6-14.6); RBC Distribution Width SD 59.3 fl (35.1-43.9); Red Blood Count 4.72 M/mm3 (4.2-5.4); White Blood Count 14.2 K/mm3 (4.4-11.0)
[2020-03-13 20:55] LABS: Urine Bilirubin Dipstick 1 mg/dL (Negative)
[2020-03-13 20:58] LABS: Amorphous Sediment 3+ URATE; Hyaline Cast 5-10 SEEN /lpf (0-5); Red Blood Cells-Urine 0-5 SEEN /hpf (0-5); Squamous Epithelial Cells - UA 0-5 SEEN /hpf (5-10)
[2020-03-13 21:05] LABS: ALB/GLOB Ratio 0.6 RATIO (0.9-2.4); AST(SGOT) 23 U/L (15-37); Alanine Aminotransfer ALT/SGPT 20 U/L (13-56); Albumin, Serum 3.1 g/dL (3.2-5.0); Alkaline Phosphatase 120 U/L (45-117); Anion Gap 8 (5-15); BUN 39 mg/dL (7-18); BUN/Creat Ratio 23.5 RATIO (10-20); Calcium,Total 9.1 mg/dL (8.5-10.1); Chloride 103 mmol/L (98-107); Creatinine, Serum 1.66 mg/dL (0.55-1.02); EST Glomerular Filtration Rate 32 mL/min (>60); Est Glom Filt Rate - Afr Amer 38 mL/min (>60); Estimated Creatinine Clearance 22.09 ml/min; Globulin 5.2 g/dL (2.2-4.2); Glucose 118 mg/dL (74-106); Lipase 84 U/L (73-393); Potassium 4.4 mmol/L (3.5-5.1); Protein, Total 8.3 g/dL (6.4-8.2); Sodium Level 139 mmol/L (136-145)
--- NOTE | 2020-03-13 21:20 | ED.RN ---
PT ONLY ABLE TO DRINK 1/[address] ORAL CONTRAST[address] CT & DR. MOREJON AWARE. STOP TIME WAS 2114. SCAN @ [id number]
[2020-03-13 21:43] LABS: Lactic Acid 0.9 mmol/L (0.4-1.9)
[2020-03-13 22:21] VITALS: BP 135/92; PULSE 99; RESP 15; O2SAT 97
[2020-03-14] VITALS (7 sets, daily range): BP systolic 90–134; BP diastolic 55–86; PULSE 89–100; RESP 15–18; TEMP 36.6; O2SAT 93–100
--- NOTE | 2020-03-14 00:06 | ED.RN ---
FAMILY LIFE COUNSELOR: ELEUTERIO LUX @ [phone]
--- NOTE | 2020-03-14 00:46 | RAD_ITS ---
STUDY: X-RAY CHEST REASON FOR EXAM: Female, 79 years old. NG tube placement. TECHNIQUE: Single AP portable view of the chest. COMPARISON: None. FINDINGS: A nasogastric tube is seen in place with the tip at the level of the gastric fundus junction with the body. The sidehole is seen at the EG junction. The lungs are clear and expanded. There is no demonstrated pleural abnormality. Normal size heart. Normal mediastinum and chloe. Normal visualized pulmonary arteries. There is atherosclerotic calcification of the aortic arch with tortuosity. Normal visualized thoracic spine. Normal visualized ribs, clavicles, and shoulders. There is no demonstrated abnormality of the visualized soft tissue structures of the upper abdomen. RAD/Abdomen Single View (Portable) IMPRESSION: Nasogastric tube as described. Recommend advancing the nasogastric tube approximately 8 cm. No acute cardiopulmonary disease. Electronically Signed: Susana William MD at 1:56 EST , Service support ,
--- NOTE | 2020-03-14 02:34 | ED.RN ---
COLOSTOMY BAG EMPTIED. 700 CC LIQUID LIGHT BROWN STOOL NOTED.
--- NOTE | 2020-03-14 02:59 | ED.RN ---
NG TUBE ADVANCED 8CM PER PHYSICIAN VERBAL ORDER BASED ON KUB. GASTRIC CONTENTS OBSERVED IN NG TUBING
--- NOTE | 2020-03-14 03:55 | ED.RN ---
colostomy emptied at this time. 300 cc liquid ron brown stool noted.
--- NOTE | 2020-03-14 05:18 | ED.RN ---
COLOSTOMY BAG EMPTIED. 300 CC BARNES/BROWN LIQUID STOOL NOTED.
--- NOTE | 2020-03-14 08:46 | ED.RN ---
daughter called for bed notification and phone number given
--- NOTE | 2020-03-14 09:56 | ED.RN ---
250cc emptied from ostomy. updated on bed and eta for transport.
== END 2020-03-14 10:32 | disposition short-term general hospital (02) ==
PROVIDERS: Emergency Medicine; Emergency Provider Emergency Medicine; PCP Family Medicine
DX: K46.0 Unspecified abdominal hernia with obstruction, without gangrene (principal); Z93.2 Ileostomy status; Z87.891 Personal history of nicotine dependence
CPT/HCPCS: 74018; 74177; 80053; 81001; 83605; 83690; 85025; 87426; 96361; 96374; 96375; 99285; J7030; Q9967; A4216; J2405

== ENCOUNTER 2020-09-03 08:05 | Emergency (ER) | payer MEDICARE, SELFPAY ==
[2017-12-22 12:49] VITALS: BMI 49.4
[2020-08-04 13:25] VITALS: BMI 40.6
[2020-09-03 08:06] VITALS: BP 222/118; PULSE 92; RESP 14; TEMP 36.6; O2SAT 92; BMI 36.6
[2020-09-03] MEDS: Morphine 4 MG/ML Syringe IV (08:33)
[2020-09-03] MEDS: Ondansetron 4 MG/2 ML Vial IV (08:33)
--- NOTE | 2020-09-03 08:42 | EDS_ITS ---
HPI HPI - GI History of Present Illness Chief Complaint: Abd Pain Narrative Narrative: 79-year-old female presenting with abdominal pain. She describes this as mostly around her colostomy bag. Patient states that this was placed about a year and a half ago. She believes that she needed this secondary to her hernia. She tried to call the surgeon who did the surgery however she could not get a hold of him. She presents to the ER for evaluation of this. It is very difficult to ascertain from her when it actually started but her states that he thinks she had pain about 2 weeks ago and that it might of started then. Patient is a poor informant. 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) Stenosis of right carotid artery Tobacco abuse VBI (vertebrobasilar insufficiency) Home Medications citalopram 20 mg PO DAILY 02/28/13 [History Last Taken 02/25/20] albuterol sulfate 2 puff INHALATION Q6H PRN PRN 07/15/14 [History Last Taken 02/25/20] atorvastatin 40 mg PO QHS 08/17/18 [History Last Taken 02/24/20] metoprolol succinate 25 mg tablet,extended release 24 hr 12.5 mg PO DAILY tab 12/06/19 [History Last Taken 02/25/20] midodrine 5 mg tablet 2 tab PO Q8H tab 01/25/20 [History Last Taken 02/25/20 04:30] oxybutynin chloride 10 mg tablet,extended release 24 hr 10 mg PO DAILY 01/25/20 [History Last Taken 02/25/20] clopidogrel 75 mg PO DAILY 02/25/20 [History Last Taken 02/25/20] hydroxyzine HCl 25 mg PO QHS 02/25/20 [History Last Taken 02/24/20] pramipexole 1.5 mg PO TID PRN 02/25/20 [History Last Taken 02/25/20] loperamide 2 mg PO Q4H PRN PRN 02/26/20 [History Last Taken Unknown] furosemide 40 mg PO DAILY #30 tab 02/29/20 [Rx Last Taken Unknown] beclomethasone dipropionate 80 mcg/actuation HFA breath activated aerosol 1 inh INHALATION BID 03/11/20 [History Last Taken Unknown] montelukast 10 mg tablet 10 mg PO QHS 03/11/20 [History Last Taken Unknown] omeprazole 40 mg capsule,delayed release 40 mg PO DAILY 03/11/20 [History Last Taken Unknown] Pantoprazole Sodium 40 mg PO BID 03/13/20 [History Last Taken Unknown] nitroglycerin 0.4 mg sublingual tablet 0.4 mg SUBLINGUAL Q5M PRN #25 tab 08/04/20 [Rx Last Taken Unknown] ranolazine 1,000 mg tablet,extended release,12 hr 1,000 mg PO BID #60 tab 08/04/20 [Rx Last Taken Unknown] ciprofloxacin HCl 500 mg PO BID 7 Days #14 tablet 09/03/20 [Rx Last Taken Unknown] metronidazole [Flagyl] 500 mg PO Q8H 7 Days #21 tab 09/03/20 [Rx Last Taken Unknown] promethazine 12.5 mg PO TID PRN #20 tab 09/03/20 [Rx Last Taken Unknown] Allergy/AdvReac Type Severity Reaction Status Date / Time aspirin [ASA] Allergy Severe Hives Verified 09/03/20 08:06 ferrous sulfate Allergy Intermediate Hives Verified 09/03/20 08:06 bupropion [From Wellbutrin] Allergy headache Verified 09/03/20 08:06 codeine Allergy Hives Verified 09/03/20 08:06 meperidine HCl [From Demerol] Allergy Hives Verified 09/03/20 08:06 naproxen sodium Allergy Hives Verified 09/03/20 08:06 [From Anaprox] propoxyphene HCl Allergy Hives Verified 09/03/20 08:06 [From Darvon] Sulfa (Sulfonamide Allergy hives, Verified 09/03/20 08:06 Antibiotics) trouble breathing gabapentin AdvReac Intermediate Mental Verified 09/03/20 08:06 status change, foggy headed NSAIDS (Non-Steroidal AdvReac Hives Verified 09/03/20 08:06 Anti-Inflamma Family History Mother CVA (cerebral vascular accident) Father Asthma Hypertension High blood cholesterol level Arthritis Surgical History H/O bariatric surgery History of section History of cholecystectomy History of coronary artery stent placement (12/11/19) History of right knee joint replacement History of right-sided carotid endarterectomy (07/2014) left subclavian artery stent (03/2017) Social History Smoking Status: Current every day smoker tobacco type: cigarettes how long ago did patient quit smokin weeks ago second hand exposure: Yes alcohol intake: never substance use type: does not use caffeine: Yes Type: coffee Number of servings: 6 what type of physical activity do you participate in: none ROS ROS ED Constitutional Constitutional ED: Denies fever(s) or subjective ENT ENT ED: Denies ear pain, rhinorrhea or sore throat Cardiovascular Cardiovascular: Denies chest pain or palpitations Respiratory/Chest Respiratory/Chest: Denies cough or dyspnea Gastrointestinal Gastrointestinal: Reports abdominal pain and nausea; Denies constipation Genitourinary Genitourinary ED: Denies dysuria or hematuria Musculoskeletal Musculoskeletal: Denies arthralgias or myalgias Integumentary Denies abscess or rash Neurologic Neurologic: Denies headache(s) or weakness EXAM Physical Exam Const Vital Signs: 09/03/20 08:06 09/03/20 11:37 09/03/20 12:57 Temperature 97.9 F Temperature Source Temporal Pulse Rate 92 91 Respiratory Rate 14 19 H Blood Pressure 222/118 H 124/76 H 166/87 H Blood Pressure Mean 152 92 Pulse Ox 92 97 Oxygen Delivery Method Room Air Room Air Positive obese General Appearance ED: NAD Nutritional Appearance: obese HEENT normocephalic and atraumatic Eyes PERRL and EOMs intact bilaterally Resp normal respiratory effort and clear to auscultation bilaterally Cardio regular rate and regular rhythm GI GI Narrative: Tenderness to palpation around ostomy site. There appears to be liquid stool in the ostomy bag. There is no cellulitic change around the skin with ostomy. Palpation: tender Back/Spine Negative for no CVA tenderness Extremity General Extremety ED: Negative for edema or tenderness General Extremity: Negative for edema Neuro CN's II-XII intact bilaterally Sensorium / Orientation: alert Skin Lesions: no lesions Rashes: no rashes MDM MDM MDM Narrative Medical decision making narrative: Patient presenting for abdominal pain and concern that he might have a new hernia. Her lab work shows she has a slight leukocytosis of 15.5. Patient's LFTs and lipase appear to be normal. Creatinine is 1.34. Potassium slightly elevated at 5.4 and she is given IV fluids. CT of the abdomen pelvis does not show any hernias, does show mild di stention of the yesterday. Proximal small bowel loops markedly improved since prior exam. There is mild thickened wall loops of small bowel in the right upper quadrant and left lower quadrant. It is noted that she has right bronchial wall thickening which could be infectious or inflammatory. She is not having any respiratory complaints. Also she has a stable 9 x 8 mm right lower lobe nodule opacity that will need to be followed by her primary doctor. After medication patient feels improved. Given her nonspecific findings on her CT we discussed whether he would take start her on antibiotics and given her white cell count we will give her Cipro and Flagyl for home. She is given return precautions. Impression: 1. Enteritis 2. Right middle lobe bronchial thickening Lab Data Attestation: I reviewed the patient's lab results. Labs: Laboratory Results - last 24 hr 09/03/20 09/03/20 09/03/20 08:25 08:25 09:30 WBC 15.5 H RBC 4.91 Hgb 14.1 Hct 46.1 MCV 93.9 MCH 28.7 MCHC 30.6 L RDW Std Deviation 58.7 H RDW Coeff of Abiola 17.0 H Plt Count 283 MPV 9.2 Immature Gran % (Auto) 0.700 Neut % (Auto) 87.6 H Lymph % (Auto) 6.3 L Yell % (Auto) 4.3 Eos % (Auto) 0.5 Baso % (Auto) 0.6 Absolute Neuts (auto) 13.6 H Absolute Lymphs (auto) 0.97 Nucleated RBC % 0 Sodium Cancelled 138 Potassium Cancelled 5.4 H Chloride Cancelled 113 H Carbon Dioxide Cancelled 19.0 L Anion Gap Cancelled 6 BUN Cancelled 23 H Creatinine Cancelled 1.34 H Estim Creat Clear Calc Cancelled 27.37 Est GFR (MDRD) Af Amer Cancelled 49 L Est GFR (MDRD) Non-Af Cancelled 41 L BUN/Creatinine Ratio Cancelled 17.2 Glucose Cancelled 112 H Calcium Cancelled 8.6 Total Bilirubin Cancelled 0.50 AST Cancelled 38 H ALT Cancelled 35 Alkaline Phosphatase Cancelled 109 Total Protein Cancelled 7.6 Albumin Cancelled 2.8 L Globulin Cancelled 4.8 H Albumin/Globulin Ratio Cancelled 0.6 L Lipase Cancelled 133 Radiography Diagnostic Testing: Radiology Impression Abdomen/Pelvis CT 09/03/20 10:30 IMPRESSION: 1. There has been interval repair of the previously seen midline ventral hernia. There is mild distention of the proximal small bowel loops, markedly improved since prior exam. 2. Mildly thick walled loops of small bowel in the right upper quadrant and left lower quadrant, this may represent enteritis in the proper clinical setting. 3. marked aortobiiliac and branch vessel atherosclerotic disease with atherosclerosis extending toward the central lumen causing severe focal narrowing of the infrarenal abdominal aorta 4. Stable 9 x 8 mm right lower lobe nodular opacity. Follow continued annual chest CT follow-up is recommended. 5. There is new right middle lobe bronchial wall thickening and tree-in-bud nodular opacities, this may be infectious or inflammatory. Electronically Signed: Romina Cole MD at 11:18 EDT Tel , Service support , Discharge Plan Triage Chief Complaint: Abd Pain ED Provider: Justino Parada Dx/Rx/DC Orders Instructions: Bacterial Gastroenteritis Prescriptions: New metronidazole [Flagyl] 500 mg tablet 500 mg PO Q8H 7 Days Qty: 21 RF: 0 ciprofloxacin HCl 500 mg tablet 500 mg PO BID 7 Days Qty: 14 RF: 0 promethazine 12.5 mg tablet 12.5 mg PO TID PRN (Reason: nausea and vomiting) Qty: 20 RF: 0 No Action ranolazine 1,000 mg tablet extended release 12 hr 1,000 mg PO BID Qty: 60 RF: 11 nitroglycerin 0.4 mg tablet, sublingual 0.4 mg SUBLINGUAL Q5M PRN (Reason: Chest Pain) Qty: 25 RF: 3 oxybutynin chloride 10 mg tablet extended release 24hr 10 mg PO DAILY RF: 0 midodrine 5 mg tablet 2 tab PO Q8H RF: 0 beclomethasone dipropionate 80 mcg/actuation HFA aerosol breath activated 1 inh INHALATION BID RF: 0 omeprazole 40 mg capsule,delayed release(DR/EC) 40 mg PO DAILY RF: 0 citalopram 20 MG tablet 20 mg PO DAILY RF: 0 albuterol sulfate 1 PUFF inhaler 2 puff INHALATION Q6H PRN PRN (Reason: Sob &/Or Wheezing) RF: 0 montelukast 10 mg tablet 10 mg PO QHS RF: 0 atorvastatin 40 MG tablet 40 mg PO QHS RF: 0 hydroxyzine HCl 25 MG tablet 25 mg PO QHS RF: 0 pramipexole 1.5 MG tablet 1.5 mg PO TID PRN (Reason: RESTLESS LEGS) RF: 0 clopidogrel 75 MG tablet 75 mg PO DAILY RF: 0 loperamide 2 MG capsule 2 mg PO Q4H PRN PRN (Reason: Diarrhea) RF: 0 furosemide 40 MG tablet 40 mg PO DAILY Qty: 30 RF: 0 Pantoprazole Sodium 40 mg PO BID RF: 0 metoprolol succinate 25 mg tablet extended release 24 hr 12.5 mg PO DAILY RF: 0 Primary Care Provider: Stephon Marcos NP Referrals: Stephon Marcos NP, SENIOR WAREHOUSE CLERK-C [Primary Care Provider] - Disposition Disposition: Home, Self Care Discharge Date/Time: 09/03/20 12:58
[2020-09-03 08:44] LABS: Absolute Lymphocyte Count 0.97 X10^3/uL (0.83-4.51); Absolute Neutrophil Count 13.6 X10^3/uL (2.0-7.7); Basophil# 0.09 X10^3/uL; Basophil% 0.6 % (0-1); Eosinophil# 0.08 X10^3/uL; Eosinophils% 0.5 % (0-5); Hematocrit 46.1 % (37-47); Hemoglobin 14.1 g/dL (12.0-15.0); Lymphocyte # 0.97 X10^3/ul (0.83-4.51); Lymphocyte % 6.3 % (19-41); Mean Corp Hgb Conc 30.6 g/dL (32-36); Mean Corpuscular Hgb 28.7 pg (27.0-32.0); Mean Corpuscular Volume 93.9 fL (81-99); Mean Platelet Vol. 9.2 fl (6.2-12.0); Monocyte# 0.67 X10^3/uL; Monocyte% 4.3 % (0-10); NRBC Flagged by Analyzer 0 % (0-5); Neutrophil % 87.6 % (47-70); Platelet Count 283 K/mm3 (150-450); RBC Distribution Width SD 58.7 fl (35.1-43.9); Red Blood Count 4.91 M/mm3 (4.2-5.4); White Blood Count 15.5 K/mm3 (4.4-11.0)
--- NOTE | 2020-09-03 08:48 | NURSING ---
CHEMISTRIES HEMOLIZED
[2020-09-03 10:20] LABS: ALB/GLOB Ratio 0.6 RATIO (0.9-2.4); AST(SGOT) 38 U/L (15-37); Alanine Aminotransfer ALT/SGPT 35 U/L (13-56); Albumin, Serum 2.8 g/dL (3.2-5.0); Alkaline Phosphatase 109 U/L (45-117); Anion Gap 6 (5-15); BUN 23 mg/dL (7-18); BUN/Creat Ratio 17.2 RATIO (10-20); Calcium,Total 8.6 mg/dL (8.5-10.1); Chloride 113 mmol/L (98-107); Creatinine, Serum 1.34 mg/dL (0.55-1.02); EST Glomerular Filtration Rate 41 mL/min (>60); Est Glom Filt Rate - Afr Amer 49 mL/min (>60); Estimated Creatinine Clearance 27.37 ml/min; Globulin 4.8 g/dL (2.2-4.2); Glucose 112 mg/dL (74-106); Lipase 133 U/L (73-393); Potassium 5.4 mmol/L (3.5-5.1); Protein, Total 7.6 g/dL (6.4-8.2); Sodium Level 138 mmol/L (136-145)
--- NOTE | 2020-09-03 10:30 | CT_ITS ---
STUDY: CT ABDOMEN AND PELVIS WITH CONTRAST REASON FOR EXAM: Female, 79 years old. abdominal pain ileostomy. Hiatal hernia . RADIATION DOSAGE (If Supplied By Facility): CTDIvol = ( 19.79 ) mGy, DLP = ( 1261.55 ) mGycm TECHNIQUE: Transaxial images were obtained from the dome of the diaphragm to the symphysis pubis without oral contrast. IV 100mL Isovue-300 was administered. Sagittal and coronal images were reconstructed. Individualized dose optimization techniques were used for this CT. COMPARISON: CT abdomen and pelvis 03/13/2020 and 12/02/2019. FINDINGS: Previously seen left lower lobe nodular opacity has resolved. Stable nodular opacity in the right lower lobe measuring 9 x 8 mm. There is new right middle lobe bronchial wall thickening, mucous inspissation and tree-in-bud nodularity. There are marked coronary artery calcifications and/or stents. There are aortic root atherosclerotic changes. Normal liver. There are surgical clips in the gallbladder fossa consistent with a prior cholecystectomy. There is stable mild intrahepatic and extrahepatic biliary duct dilatation.. Normal spleen. Normal pancreas. Normal bilateral adrenal glands. There are right renal simple cysts. Normal left kidney. No hydronephrosis or renal stones. There is a Ayanna-en-Y gastric surgery and small hiatal hernia. There is a right lower quadrant ileostomy. There is mild distention of the proximal small bowel loops, markedly improved since prior exam dated 03/13/2020. There are mildly thick walled loops of small bowel in the right upper quadrant and left pelvis. There has been total colectomy. There is marked aortobiiliac and branch vessel atherosclerotic disease with atherosclerosis extending toward the central lumen causing severe focal narrowing of the infrarenal abdominal aorta on image [id number].. Normal inferior vena cava. Normal retroperitoneum. Normal urinary bladder. There has been interval repair of the previously seen midline ventral hernia. Right lower quadrant ileostomy. There are diffuse degenerative changes of the visualized lumbar spine. Mild bilateral hip arthrosis. CT/Abdomen/Pelvis W IV Cont ONLY IMPRESSION: 1. There has been interval repair of the previously seen midline ventral hernia. There is mild distention of the proximal small bowel loops, markedly improved since prior exam. 2. Mildly thick walled loops of small bowel in the right upper quadrant and left lower quadrant, this may represent enteritis in the proper clinical setting. 3. marked aortobiiliac and branch vessel atherosclerotic disease with atherosclerosis extending toward the central lumen causing severe focal narrowing of the infrarenal abdominal aorta 4. Stable 9 x 8 mm right lower lobe nodular opacity. Follow continued annual chest CT follow-up is recommended. 5. There is new right middle lobe bronchial wall thickening and tree-in-bud nodular opacities, this may be infectious or inflammatory. Electronically Signed: Romina Cole MD at 11:18 EDT Tel , Service support ,
--- NOTE | 2020-09-03 11:23 | NURSING ---
Was called by outside plant technician to go to ED to change patient's ostomy appliance that started leaking while in CT scanner. Pt is known to this nurse. removed ostomy appliance. stoma is well budded and beefy red. measures approx 1 in diameter. peristomal skin is intact. cleansed skin with warm water. pat dry. applied a 2 piece flat [place] appliance with an Adaptic ring. flange #[id number] and pouch #[id number] was used. pt tolerated well. assisted SECOND CRUSHER in changing patient and lines. Pt very appreciative of care.
[2020-09-03 11:37] VITALS: BP 124/76; PULSE 91; RESP 19; O2SAT 97
[2020-09-03] MEDS: Ciprofloxacin 500 MG Tablet PO (12:17)
[2020-09-03] MEDS: metroNIDAZOLE 500 MG Tablet PO (12:17)
[2020-09-03 12:57] VITALS: BP 166/87
== END 2020-09-03 12:58 | disposition home or self-care (01) ==
PROVIDERS: Emergency Provider Student in an Organized Health Care Education/Training Program; PCP Nurse Practitioner Family
DX: K52.9 Noninfective gastroenteritis and colitis, unspecified (principal); J98.8 Other specified respiratory disorders; Z93.3 Colostomy status; I25.10 Atherosclerotic heart disease of native coronary artery without angina pectoris; I10 Essential (primary) hypertension; E11.9 Type 2 diabetes mellitus without complications; K21.9 Gastro-esophageal reflux disease without esophagitis; E78.5 Hyperlipidemia, unspecified; J44.9 Chronic obstructive pulmonary disease, unspecified; E66.9 Obesity, unspecified; F17.210 Nicotine dependence, cigarettes, uncomplicated; Z79.51 Long term (current) use of inhaled steroids; Z79.899 Other long term (current) drug therapy
CPT/HCPCS: 36415; 74177; 80053; 83690; 85025; 96374; 96375; 99284; J7030; Q9967; A4216; J2405

== ENCOUNTER 2020-11-10 15:01 | Emergency (ER) | payer MEDICARE, SELFPAY ==
[2017-12-22 12:49] VITALS: BMI 49.4
[2020-11-10 15:03] VITALS: BP 120/73; PULSE 72; RESP 14; TEMP 37; O2SAT 94; BMI 37.9
[2020-11-10 16:24] VITALS: O2SAT 96
--- NOTE | 2020-11-10 16:24 | ED.VIS.DYS ---
HPI History of Present Illness Chief Complaint: Shortness of Breath Detail of Chief Complaint: Cough Informant: patient Onset/Context/Timing Onset: Days Context: gradual Timing: Intermittent Current Severity: Mild Maximum Severity: Mild Associated Symptoms cough Narrative Narrative: 80-year-old female history of CHF, TIA, CAD with 6 stent, renal insufficiency, COPD and colostomy. She does smoke. Patient states that both her and son-in-law have recently had Covid. She and them were vaccinated. She states she has had a cough and mild shortness of breath the last several days. No fever or chills. No nausea nor vomiting. States that her sat was 85% at home. She is on oxygen as needed at home for CHF. She denies any chest pain. She denies any hemoptysis. She denies any leg swelling. 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) Stenosis of right carotid artery Tobacco abuse VBI (vertebrobasilar insufficiency) Home Medications citalopram 20 mg PO DAILY 02/28/13 [History Last Taken 02/25/20] albuterol sulfate 2 puff INHALATION Q6H PRN PRN 07/15/14 [History Last Taken 02/25/20] atorvastatin 40 mg PO QHS 08/17/18 [History Last Taken 02/24/20] metoprolol succinate 25 mg tablet,extended release 24 hr 12.5 mg PO DAILY tab 12/06/19 [History Last Taken 02/25/20] midodrine 5 mg tablet 2 tab PO Q8H tab 01/25/20 [History Last Taken 02/25/20 04:30] oxybutynin chloride 10 mg tablet,extended release 24 hr 10 mg PO DAILY 01/25/20 [History Last Taken 02/25/20] clopidogrel 75 mg PO DAILY 02/25/20 [History Last Taken 02/25/20] hydroxyzine HCl 25 mg PO QHS 02/25/20 [History Last Taken 02/24/20] pramipexole 1.5 mg PO TID PRN 02/25/20 [History Last Taken 02/25/20] loperamide 2 mg PO Q4H PRN PRN 02/26/20 [History Last Taken Unknown] furosemide 40 mg PO DAILY #30 tab 02/29/20 [Rx Last Taken Unknown] beclomethasone dipropionate 80 mcg/actuation HFA breath activated aerosol 1 inh INHALATION BID 03/11/20 [History Last Taken Unknown] montelukast 10 mg tablet 10 mg PO QHS 03/11/20 [History Last Taken Unknown] omeprazole 40 mg capsule,delayed release 40 mg PO DAILY 03/11/20 [History Last Taken Unknown] Pantoprazole Sodium 40 mg PO BID 03/13/20 [History Last Taken Unknown] nitroglycerin 0.4 mg sublingual tablet 0.4 mg SUBLINGUAL Q5M PRN #25 tab 08/04/20 [Rx Last Taken Unknown] ranolazine 1,000 mg tablet,extended release,12 hr 1,000 mg PO BID #60 tab 08/04/20 [Rx Last Taken Unknown] dexamethasone [Decadron] 6 mg PO DAILY #10 tab 11/10/20 [Rx Last Taken Unknown] fluticasone furoate 2 mcg INHALATION DAILY 11/10/20 [History Last Taken Unknown] formoterol fumarate 2 ml INHALATION Q12H 11/10/20 [History Last Taken Unknown] ipratropium-albuterol 3 ml INHALATION Q6H PRN 11/10/20 [History Last Taken Unknown] pramipexole [Mirapex] 1.5 mg PO BID 11/10/20 [History Last Taken Unknown] Allergy/AdvReac Type Severity Reaction Status Date / Time aspirin [ASA] Allergy Severe Hives Verified 11/10/20 15:07 ferrous sulfate Allergy Intermediate Hives Verified 11/10/20 15:07 bupropion [From Wellbutrin] Allergy headache Verified 11/10/20 15:07 codeine Allergy Hives Verified 11/10/20 15:07 meperidine HCl [From Demerol] Allergy Hives Verified 11/10/20 15:07 naproxen sodium Allergy Hives Verified 11/10/20 15:07 [From Anaprox] propoxyphene HCl Allergy Hives Verified 11/10/20 15:07 [From Darvon] Sulfa (Sulfonamide Allergy hives, Verified 11/10/20 15:07 Antibiotics) trouble breathing gabapentin AdvReac Intermediate Mental Verified 11/10/20 15:07 status change, foggy headed NSAIDS (Non-Steroidal AdvReac Hives Verified 11/10/20 15:07 Anti-Inflamma Family History Mother CVA (cerebral vascular accident) Father Asthma Hypertension High blood cholesterol level Arthritis Surgical History H/O bariatric surgery History of section History of cholecystectomy History of coronary artery stent placement (12/11/19) History of right knee joint replacement History of right-sided carotid endarterectomy (07/2014) left subclavian artery stent (03/2017) Social History Smoking Status: Current every day smoker tobacco type: cigarettes how long ago did patient quit smokin weeks ago second hand exposure: Yes alcohol intake: never substance use type: does not use caffeine: Yes Type: coffee Number of servings: 6 what type of physical activity do you participate in: none ROS ROS ED ROS Narrative Cough. Review of Systems ROS Unobtainable: Denies due to encephalopathy Constitutional Constitutional ED: Denies chills or fever(s) Eyes Eyes: Denies change in vision ENT ENT ED: Denies ear pain or sore throat Cardiovascular Cardiovascular: Denies chest pain Respiratory/Chest Respiratory/Chest: Reports cough and dyspnea; Denies dyspnea on exertion or sputum Gastrointestinal Gastrointestinal: Denies abdominal pain, nausea or vomiting Genitourinary Genitourinary ED: Denies dysuria or hematuria Musculoskeletal Musculoskeletal: Denies myalgias Integumentary Denies rash Neurologic Neurologic: Denies headache(s) Psychiatric Psychiatric: Denies depression Endocrine Endocrinology: Denies polyuria Hematologic/Lymphatic Hematologic/Lymphatic: Denies easy bruising Allergic/Immunologic Allergic/Immunologic ED: Denies urticaria EXAM Physical Exam Narrative Exam Narrative: 80-year-old female no acute distress. Vital signs stable afebrile. Pulse ox 94% room air no hypoxia. H EENT exam unremarkable. Neck nontender no JVD. No lymphadenopathy. Lungs dry cough. No rales, rhonchi or wheezing. Heart regular rate and rhythm rate about 70 no murmur. Abdomen soft nontender normal bowel sounds no peritoneal signs. Patient moving all 4 extremities. Calves nontender without edema or cords. Back nontender. Neurologically she is awake alert with no focal motor deficits. Const Vital Signs: 11/10/20 15:03 11/10/20 16:24 Temperature 98.6 F Temperature Source Temporal Pulse Rate 72 Respiratory Rate 14 Respiratory Depth Normal Respiratory Pattern Normal Blood Pressure 120/73 Blood Pressure Mean 88 Pulse Ox 94 Oxygen Delivery Method Room Air Room Air Positive well nourished and well developed; Negative for unkempt General Appearance ED: well developed and NAD; Negative for unkempt HEENT Reports moist mucous membranes atraumatic; Negative for trauma or tenderness Eyes PERRL and EOMs intact bilaterally General Eye ED: Negative for pale conjunctiva Neck no lymphadenopathy, supple, no meningeal signs and no JVD General: Negative for tenderness Resp normal respiratory effort and clear to auscultation bilaterally Auscultation: Negative for rales, rhonchi or wheezes Cardio regular rate, regular rhythm, S1 normal heart sound, S2 normal heart sound and no murmurs GI non-tender, non-distended and no masses Auscultation: normoactive bowel sounds Palpation: soft; Negative for tender, guarding or rebound tenderness present Back/Spine no CVA tenderness and normal to inspection General Back: Negative for CVA tenderness Extremity normal to inspection General Extremety ED: Negative for edema or tenderness General Extremity: Negative for edema Neuro oriented x3 and CN's II-XII intact bilaterally Sensorium / Orientation: alert, oriented to person and oriented to place; Negative for lethargic or stuporous Motor Exam: strength 5/5 throughout Psych mental status grossly normal Appearance: Negative for unkempt Skin no wounds General Skin Exam: Negative for jaundice Lesions: no lesions Rashes: no rashes MDM MDM MDM Narrative Medical decision making narrative: 80-year-old female with cough mild shortness of breath with 2 family members at home that she lives with with Covid. She was vaccinated. She will get a Covid shot, chest x-ray and screening labs. Repeat exam she is doing well at 5:20 PM will be discharged home. I went over test results with her and family. Lab Data Attestation: I reviewed the patient's lab results. Lab results narrative: CBC is unremarkable. White count of 7. Hemoglobin 12. Consistent with a potassium of 5.2 gap of 1 creatinine 1.22. Covid test negative even though clinically I think she may have Covid. Labs: Laboratory Results - last 24 hr 11/10/20 11/10/20 16:16 16:16 WBC 7.1 RBC 4.08 L Hgb 12.2 Hct 40.0 MCV 98.0 MCH 29.9 MCHC 30.5 L RDW Std Deviation 52.7 H RDW Coeff of Abioal 14.5 Plt Count 233 MPV 9.0 Immature Gran % (Auto) 0.800 Neut % (Auto) 63.2 Lymph % (Auto) 23.1 [place] % (Auto) 9.2 Eos % (Auto) 3.1 Baso % (Auto) 0.6 Absolute Neuts (auto) 4.5 Absolute Lymphs (auto) 1.63 Nucleated RBC % 0 Sodium 138 Potassium 5.2 H Chloride 109 H Carbon Dioxide 28.0 Anion Gap 1 L BUN 32 H Creatinine 1.22 H Estim Creat Clear Calc 29.57 Est GFR (MDRD) Af Amer 55 L Est GFR (MDRD) Non-Af 45 L BUN/Creatinine Ratio 26.2 H Glucose 74 Calcium 8.8 Radiography Chest X-Ray - ED: 1 View, Read by ED Physician, Heart, Lungs, Mediastinum, Bony Structures, No Acute Disease, Chronic Changes and Cardiomegaly Diagnostic Testing: Radiology Impression Chest X-Ray 11/10/20 16:39 IMPRESSION: No acute cardiopulmonary disease. Electronically Signed: Umair Hernandez DO at 16:49 EDT Tel [phone], Service support , Portable single view chest x-ray interpreted both by myself and radiologist shows no acute abnormality. Normal cardiac silhouette mediastinum. No infiltrates. Discharge Plan Triage Chief Complaint: Shortness of Breath ED Provider: Juma Garcia Dx/Rx/DC Orders Clinical Impression: Viral URI Instructions: ED URI, Viral, No Abx (Adult) Prescriptions: New dexamethasone [Decadron] 6 mg tablet 6 mg PO DAILY Qty: 10 RF: 0 No Action ranolazine 1,000 mg tablet extended release 12 hr 1,000 mg PO BID Qty: 60 RF: 11 nitroglycerin 0.4 mg tablet, sublingual 0.4 mg SUBLINGUAL Q5M PRN (Reason: Chest Pain) Qty: 25 RF: 3 oxybutynin chloride 10 mg tablet extended release 24hr 10 mg PO DAILY RF: 0 midodrine 5 mg tablet 2 tab PO Q8H RF: 0 beclomethasone dipropionate 80 mcg/actuation HFA aerosol breath activated 1 inh INHALATION BID RF: 0 omeprazole 40 mg capsule,delayed release(DR/EC) 40 mg PO DAILY RF: 0 citalopram 20 MG tablet 20 mg PO DAILY RF: 0 albuterol sulfate 1 PUFF inhaler 2 puff INHALATION Q6H PRN PRN (Reason: Sob &/Or Wheezing) RF: 0 montelukast 10 mg tablet 10 mg PO QHS RF: 0 atorvastatin 40 MG tablet 40 mg PO QHS RF: 0 hydroxyzine HCl 25 MG tablet 25 mg PO QHS RF: 0 pramipexole 1.5 MG tablet 1.5 mg PO TID PRN (Reason: RESTLESS LEGS) RF: 0 clopidogrel 75 MG tablet 75 mg PO DAILY RF: 0 loperamide 2 MG capsule 2 mg PO Q4H PRN PRN (Reason: Diarrhea) RF: 0 furosemide 40 MG tablet 40 mg PO DAILY Qty: 30 RF: 0 Pantoprazole Sodium 40 mg PO BID RF: 0 ipratropium-albuterol 0.5 mg-3 mg(2.5 mg base)/3 mL Solution For Nebulization 3 ml INHALATION Q6H PRN (Reason: sob) RF: 0 pramipexole [Mirapex] 1.5 mg Tablet 1.5 mg PO BID RF: 0 formoterol fumarate 20 mcg/2 mL Solution For Nebulization 2 ml INHALATION Q12H RF: 0 fluticasone furoate 50 mcg/actuation Blister With Device 2 mcg INHALATION DAILY RF: 0 metoprolol succinate 25 mg tablet extended release 24 hr 12.5 mg PO DAILY RF: 0 Primary Care Provider: Agnieszka Degroot NP Referrals: Agnieszka Degroto NP, [facility] [Primary Care Provider] - 3-5 Days if not improving Activity Restrictions/Additional Instructions: Decadron once daily 6 mg. Follow-up with your primary care provider if not improving or getting worse. If feeling a lot worse return to emergency department. Your labs are unremarkable today. Your chest x-ray was normal no pneumonia. Your Covid test is negative but it may be a false negative and he still may have Covid. Disposition Disposition: Home, Self Care
--- NOTE | 2020-11-10 16:39 | RAD_ITS ---
STUDY: X-RAY CHEST REASON FOR EXAM: Female, 80 years old. Cough. TECHNIQUE: Single AP portable view of the chest. COMPARISON: 02/25/2020. FINDINGS: The lungs are well expanded there are chronic changes at the right lung base without new infiltrate or mass.. There is no demonstrated pleural abnormality. Normal size heart. There is no change in the mediastinum, chloe, pulmonary arteries or aorta. There are diffuse degenerative changes of the visualized thoracic spine. There is degenerative osteoarthritis of the bilateral shoulders. There is no demonstrated abnormality of the visualized soft tissue structures of the upper abdomen. RAD/Chest 1 View (Portable) IMPRESSION: No acute cardiopulmonary disease. Electronically Signed: Umair Hernandez DO at 16:49 EDT Tel [phone], Service support ,
[2020-11-10 16:51] LABS: Absolute Lymphocyte Count 1.63 X10^3/uL (0.83-4.51); Absolute Neutrophil Count 4.5 X10^3/uL (2.0-7.7); Basophil# 0.04 X10^3/uL; Basophil% 0.6 % (0-1); Eosinophil# 0.22 X10^3/uL; Eosinophils% 3.1 % (0-5); Hemoglobin 12.2 g/dL (12.0-15.0); Lymphocyte # 1.63 X10^3/ul (0.83-4.51); Lymphocyte % 23.1 % (19-41); Mean Corp Hgb Conc 30.5 g/dL (32-36); Mean Corpuscular Hgb 29.9 pg (27.0-32.0); Monocyte# 0.65 X10^3/uL; Monocyte% 9.2 % (0-10); NRBC Flagged by Analyzer 0 % (0-5); Neutrophil # 4.46 X10^3/uL (2.7-7.7); Neutrophil % 63.2 % (47-70); Platelet Count 233 K/mm3 (150-450); RBC Distribution Width CV 14.5 % (11.6-14.6); RBC Distribution Width SD 52.7 fl (35.1-43.9); Red Blood Count 4.08 M/mm3 (4.2-5.4); White Blood Count 7.1 K/mm3 (4.4-11.0)
[2020-11-10 16:59] LABS: Anion Gap 1 (5-15); BUN 32 mg/dL (7-18); BUN/Creat Ratio 26.2 RATIO (10-20); Calcium,Total 8.8 mg/dL (8.5-10.1); Chloride 109 mmol/L (98-107); Creatinine, Serum 1.22 mg/dL (0.55-1.02); EST Glomerular Filtration Rate 45 mL/min (>60); Est Glom Filt Rate - Afr Amer 55 mL/min (>60); Estimated Creatinine Clearance 29.57 ml/min; Glucose 74 mg/dL (74-106); Potassium 5.2 mmol/L (3.5-5.1); Sodium Level 138 mmol/L (136-145)
[2020-11-10 17:44] VITALS: BP 158/84; PULSE 87; RESP 16; O2SAT 94
== END 2020-11-10 17:46 | disposition home or self-care (01) ==
PROVIDERS: Emergency Provider Emergency Medicine; PCP Registered Nurse
DX: J06.9 Acute upper respiratory infection, unspecified (principal); J44.9 Chronic obstructive pulmonary disease, unspecified; I25.10 Atherosclerotic heart disease of native coronary artery without angina pectoris; E11.9 Type 2 diabetes mellitus without complications; K21.9 Gastro-esophageal reflux disease without esophagitis; E78.5 Hyperlipidemia, unspecified; F17.210 Nicotine dependence, cigarettes, uncomplicated; Z79.51 Long term (current) use of inhaled steroids; Z79.899 Other long term (current) drug therapy
CPT/HCPCS: 71045; 80048; 85025; 87426; 99284; A4216

== ENCOUNTER 2020-11-15 23:50 | Emergency (ER) | payer MEDICARE, SELFPAY ==
[2017-12-22 12:49] VITALS: BMI 49.4
[2020-11-15 23:53] VITALS: RESP 30; TEMP 36.9; O2SAT 96; BMI 39.1
[2020-11-15 23:56] VITALS: BP 88/57; PULSE 82; RESP 30; TEMP 36.9; O2SAT 90
--- NOTE | 2020-11-16 00:11 | EKG12_ITS ---
Test Reason : WEAKNESS Blood Pressure : / mmHG Vent. Rate : 076 BPM Atrial Rate : 076 BPM P-R Int : 174 ms QRS Dur : 080 ms QT Int : 374 ms P-R-T Axes : 055 044 060 degrees QTc Int : 420 ms Normal sinus rhythm Nonspecific ST abnormality Abnormal ECG Confirmed by KALIN LEI, VIVEK ([id number]), scientific publications editor ANDIE GARY ([id number]) on 11/18/2020 8:04:44 AM Referred By: LEANNE Confirmed By:EVI GAGNON MD
[2020-11-16] MEDS: dexAMETHasone 4 MG Tablet 6 MG PO (00:24)
--- NOTE | 2020-11-16 00:30 | RAD_ITS ---
STUDY: X-RAY CHEST REASON FOR EXAM: Female, 80 years old. cough TECHNIQUE: Single AP portable view of the chest. COMPARISON: None. FINDINGS: Ill-defined subpleural groundglass opacities are seen more prominent in the lung bases , may represent atypical pneumonia or viral pneumonia (COVID-19 ?). There is no demonstrated pleural abnormality. Normal size heart. Normal mediastinum and chloe. Normal visualized pulmonary arteries. Normal visualized aortic arch and descending thoracic aorta. Normal visualized thoracic spine. Normal visualized ribs, clavicles, and shoulders. There is no demonstrated abnormality of the visualized soft tissue structures of the upper abdomen. RAD/Chest 1 View (Portable) IMPRESSION: Ill-defined subpleural groundglass opacities are seen more prominent in the lung bases , may represent atypical pneumonia or viral pneumonia (COVID-19 ?). Electronically Signed: Yovanny Palumbo MD at 1:04 EDT Tel , Service support ,
--- NOTE | 2020-11-16 00:33 | EX.ED.DYSGE1 ---
HPI History of Present Illness Chief Complaint: Weakness Informant: patient and family Narrative Narrative: Patient presents increasing weakness and dyspnea with transient chest pressure this evening. Patient seen 5 days ago in the ED for Covid exposure with respiratory symptoms. Family had Covid symptoms started 2 days prior with headache nausea and cough. Denies fevers. States does have a ostomy with increasing ostomy output. She was tested negative however had concerns for Covid with false negative testing. She was started on Decadron 6 mg daily for 10-day course. Patient was retested with a PCR called yesterday with positive results. Today has metallic taste in mouth. History of COPD diabetes coronary disease CHF, as needed oxygen. Has been wearing her oxygen at home. Reports this evening had chest pressure into her throat took a nitroglycerin. Currently resolved. History of low blood pressure on midodrine. Denies urinary symptoms. Patient did not take her Decadron today. 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) Stenosis of right carotid artery Tobacco abuse VBI (vertebrobasilar insufficiency) Home Medications citalopram 20 mg PO DAILY 02/28/13 [History Last Taken 02/25/20] albuterol sulfate 2 puff INHALATION Q6H PRN PRN 07/15/14 [History Last Taken 02/25/20] atorvastatin 40 mg PO QHS 08/17/18 [History Last Taken 02/24/20] metoprolol succinate 25 mg tablet,extended release 24 hr 12.5 mg PO DAILY tab 12/06/19 [History Last Taken 02/25/20] midodrine 5 mg tablet 2 tab PO Q8H tab 01/25/20 [History Last Taken 02/25/20 04:30] oxybutynin chloride 10 mg tablet,extended release 24 hr 10 mg PO DAILY 01/25/20 [History Last Taken 02/25/20] clopidogrel 75 mg PO DAILY 02/25/20 [History Last Taken 02/25/20] hydroxyzine HCl 25 mg PO QHS 02/25/20 [History Last Taken 02/24/20] pramipexole 1.5 mg PO TID PRN 02/25/20 [History Last Taken 02/25/20] loperamide 2 mg PO Q4H PRN PRN 02/26/20 [History Last Taken Unknown] furosemide 40 mg PO DAILY #30 tab 02/29/20 [Rx Last Taken Unknown] beclomethasone dipropionate 80 mcg/actuation HFA breath activated aerosol 1 inh INHALATION BID 03/11/20 [History Last Taken Unknown] montelukast 10 mg tablet 10 mg PO QHS 03/11/20 [History Last Taken Unknown] omeprazole 40 mg capsule,delayed release 40 mg PO DAILY 03/11/20 [History Last Taken Unknown] Pantoprazole Sodium 40 mg PO BID 03/13/20 [History Last Taken Unknown] nitroglycerin 0.4 mg sublingual tablet 0.4 mg SUBLINGUAL Q5M PRN #25 tab 08/04/20 [Rx Last Taken Unknown] ranolazine 1,000 mg tablet,extended release,12 hr 1,000 mg PO BID #60 tab 08/04/20 [Rx Last Taken Unknown] dexamethasone [Decadron] 6 mg PO DAILY #10 tab 11/10/20 [Rx Last Taken Unknown] fluticasone furoate 2 mcg INHALATION DAILY 11/10/20 [History Last Taken Unknown] formoterol fumarate 2 ml INHALATION Q12H 11/10/20 [History Last Taken Unknown] ipratropium-albuterol 3 ml INHALATION Q6H PRN 11/10/20 [History Last Taken Unknown] pramipexole [Mirapex] 1.5 mg PO BID 11/10/20 [History Last Taken Unknown] dexamethasone [Decadron] 6 mg PO DAILY #4 tab 11/16/20 [Rx Last Taken Unknown] Allergy/AdvReac Type Severity Reaction Status Date / Time aspirin [ASA] Allergy Severe Hives Verified 11/10/20 15:07 ferrous sulfate Allergy Intermediate Hives Verified 11/10/20 15:07 bupropion [From Wellbutrin] Allergy headache Verified 11/10/20 15:07 codeine Allergy Hives Verified 11/10/20 15:07 meperidine HCl [From Demerol] Allergy Hives Verified 11/10/20 15:07 naproxen sodium Allergy Hives Verified 11/10/20 15:07 [From Anaprox] propoxyphene HCl Allergy Hives Verified 11/10/20 15:07 [From Darvon] Sulfa (Sulfonamide Allergy hives, Verified 11/10/20 15:07 Antibiotics) trouble breathing gabapentin AdvReac Intermediate Mental Verified 11/10/20 15:07 status change, foggy headed NSAIDS (Non-Steroidal AdvReac Hives Verified 11/10/20 15:07 Anti-Inflamma Family History Mother CVA (cerebral vascular accident) Father Asthma Hypertension High blood cholesterol level Arthritis Surgical History H/O bariatric surgery History of section History of cholecystectomy History of coronary artery stent placement (12/11/19) History of right knee joint replacement History of right-sided carotid endarterectomy (07/2014) left subclavian artery stent (03/2017) Social History Smoking Status: Current every day smoker tobacco type: cigarettes how long ago did patient quit smokin weeks ago second hand exposure: Yes alcohol intake: never substance use type: does not use caffeine: Yes Type: coffee Number of servings: 6 what type of physical activity do you participate in: none ROS ROS ED Constitutional Constitutional ED: Reports chills; Denies fever(s) or sweats Eyes Eyes: Denies change in vision ENT ENT ED: Denies dysphagia or sore throat Cardiovascular Cardiovascular: Reports chest pain; Denies leg edema, palpitations or racing heartbeat Respiratory/Chest Respiratory/Chest: Reports cough and dyspnea; Denies dyspnea on exertion Gastrointestinal Gastrointestinal: Reports diarrhea; Denies abdominal pain, nausea or vomiting Genitourinary Genitourinary ED: Denies dysuria, hematuria or urinary frequency Musculoskeletal Musculoskeletal: Denies back pain, extremity pain or neck pain Integumentary Denies rash or wounds Neurologic Neurologic: Reports headache(s); Denies paresthesias or weakness EXAM Physical Exam Const Vital Signs: 11/15/20 23:53 11/15/20 23:56 11/16/20 03:04 Temperature 98.4 F 98.4 F Temperature Source Temporal Temporal Pulse Rate 82 67 Respiratory Rate 30 H 30 H 18 Blood Pressure 88/57 L 114/89 H Blood Pressure Mean 67 97 Pulse Ox 96 90 96 Oxygen Delivery Method Room Air Room Air Positive well nourished and well developed General Appearance ED: well developed and NAD HEENT Reports dry mucous membranes normocephalic and atraumatic Mouth ED: Yes dry mucous membranes Mouth: dry mucous membranes Eyes PERRL, EOMs intact bilaterally and conjunctivae normal General Eye ED: Yes normal appearance of both eyes Neck no lymphadenopathy and supple Neck Narrative: No meningismus General: Negative for tenderness Chest Wall Chest: Negative for tenderness Resp normal respiratory effort and normal air movement Effort and Inspection: symmetric chest movement; Negative for respiratory distress Cardio regular rate, regular rhythm and no murmurs Peripheral Pulses: pulses 2+ throughout GI normal to inspection, nondistended, normoactive bowel sounds and non-tender GI Narrative: Ostomy yellow liquid stools three quarters the way full. Palpation: Negative for guarding or rebound tenderness present Back/Spine no CVA tenderness and no thoracic nor lumbar tenderness Extremity normal to inspection General Extremety ED: Negative for edema or tenderness General Extremity: Negative for edema Neuro oriented x3 and no sensory deficits noted Sensorium / Orientation: awake and alert Skin no rashes or lesions noted and no wounds MDM MDM MDM Narrative Medical decision making narrative: Patient afebrile on arrival 2 L nasal cannula 96%. She had blood pressure of 80/57 she is status post nitroglycerin. Daughter states blood pressure normally around 110. She is given 500 cc bolus of fluids blood pressure improved stabilized to her baseline. Chest x-ray notes bilateral pneumonia lower lobes consistent with her Covid diagnosis. Labs stable creatinine 1.43 as previous. Troponin initial 130 1 repeat at 2 hours with 37. This is within the algorithm of being stable. She has no current chest pains. She was given her Decadron dose in the ED for her hypoxia. She has oxygen at home. She is in no respiratory distress. Daughter states does have a pulse ox at home for which she will monitor. Discussed if finished 10-day course of Decadron with additional 4 days sent to her pharmacy. Signs and symptoms discussed to return. All questions were answered. Lab Data Attestation: I reviewed the patient's lab results. Labs: Laboratory Results - last 24 hr 0911/16/20 11/16/20 00:15 00:15 02:50 WBC 8.7 RBC 4.04 L Hgb 12.2 Hct 39.1 MCV 96.8 MCH 30.2 MCHC 31.2 L RDW Std Deviation 52.5 H RDW Coeff of [place] 14.6 Plt Count 217 MPV 8.9 Immature Gran % (Auto) 1.000 H Neut % (Auto) 78.8 H Lymph % (Auto) 14.8 L [place] % (Auto) 5.1 Eos % (Auto) 0.0 Baso % (Auto) 0.3 Absolute Neuts (auto) 6.9 Absolute Lymphs (auto) 1.29 Nucleated RBC % 0 Sodium 139 Potassium 4.4 Chloride 111 H Carbon Dioxide 26.0 Anion Gap 2 L BUN 28 H Creatinine 1.43 H Estim Creat Clear Calc 25.23 Est GFR (MDRD) Af Amer 46 L Est GFR (MDRD) Non-Af 38 L BUN/Creatinine Ratio 19.6 Glucose 75 Calcium 7.5 L Troponin I High Sens 31 37 Radiography Chest X-Ray - ED: 1 View, 2 View, Read by ED Physician and Read by Radiologist Diagnostic Testing: Radiology Impression Chest X-Ray 11/16/20 00:30 IMPRESSION: Ill-defined subpleural groundglass opacities are seen more prominent in the lung bases , may represent atypical pneumonia or viral pneumonia (COVID-19 ?). Electronically Signed: Yovanny Palumbo MD at 1:04 EDT Tel , Service support , EKG Initial EKG: Attestation: I personally reviewed and interpreted this EKG as follows: Comments: Sinus rate of 76, no ST or T wave changes. Discharge Plan Triage Chief Complaint: Weakness ED Provider: Navi Ronquillo Dx/Rx/DC Orders Clinical Impression: Pneumonia due to COVID-19 virus, Chest pain, Weakness, Transient hypotension, CKD (chronic kidney disease) Instructions: Coronavirus Disease 2019 (COVID-19): Caring for Yourself or Others, ED Chest Pain, Uncertain Cause Prescriptions: New dexamethasone [Decadron] 6 mg tablet 6 mg PO DAILY Qty: 4 RF: 0 No Action ranolazine 1,000 mg tablet extended release 12 hr 1,000 mg PO BID Qty: 60 RF: 11 nitroglycerin 0.4 mg tablet, sublingual 0.4 mg SUBLINGUAL Q5M PRN (Reason: Chest Pain) Qty: 25 RF: 3 oxybutynin chloride 10 mg tablet extended release 24hr 10 mg PO DAILY RF: 0 midodrine 5 mg tablet 2 tab PO Q8H RF: 0 beclomethasone dipropionate 80 mcg/actuation HFA aerosol breath activated 1 inh INHALATION BID RF: 0 omeprazole 40 mg capsule,delayed release(DR/EC) 40 mg PO DAILY RF: 0 citalopram 20 MG tablet 20 mg PO DAILY RF: 0 albuterol sulfate 1 PUFF inhaler 2 puff INHALATION Q6H PRN PRN (Reason: Sob &/Or Wheezing) RF: 0 montelukast 10 mg tablet 10 mg PO QHS RF: 0 atorvastatin 40 MG tablet 40 mg PO QHS RF: 0 hydroxyzine HCl 25 MG tablet 25 mg PO QHS RF: 0 pramipexole 1.5 MG tablet 1.5 mg PO TID PRN (Reason: RESTLESS LEGS) RF: 0 clopidogrel 75 MG tablet 75 mg PO DAILY RF: 0 loperamide 2 MG capsule 2 mg PO Q4H PRN PRN (Reason: Diarrhea) RF: 0 furosemide 40 MG tablet 40 mg PO DAILY Qty: 30 RF: 0 Pantoprazole Sodium 40 mg PO BID RF: 0 ipratropium-albuterol 0.5 mg-3 mg(2.5 mg base)/3 mL Solution For Nebulization 3 ml INHALATION Q6H PRN (Reason: sob) RF: 0 pramipexole [Mirapex] 1.5 mg Tablet 1.5 mg PO BID RF: 0 formoterol fumarate 20 mcg/2 mL Solution For Nebulization 2 ml INHALATION Q12H RF: 0 fluticasone furoate 50 mcg/actuation Blister With Device 2 mcg INHALATION DAILY RF: 0 dexamethasone [Decadron] 6 mg tablet 6 mg PO DAILY Qty: 10 RF: 0 metoprolol succinate 25 mg tablet extended release 24 hr 12.5 mg PO DAILY RF: 0 Primary Care Provider: Agnieszka Degroot NP Referrals: Agnieszka Degroot NP, [employer] [Primary Care Provider] - 3-5 Days Activity Restrictions/Additional Instructions: Finished 4 more days of your dexamethasone. Rx at your pharmacy. Continue her oxygen as needed. Requiring more than 4 L of oxygen with increasing shortness of breath return to the ED for reevaluation.
[2020-11-16 00:34] LABS: Absolute Lymphocyte Count 1.29 X10^3/uL (0.83-4.51); Absolute Neutrophil Count 6.9 X10^3/uL (2.0-7.7); Basophil# 0.03 X10^3/uL; Basophil% 0.3 % (0-1); Hematocrit 39.1 % (37-47); Hemoglobin 12.2 g/dL (12.0-15.0); Lymphocyte # 1.29 X10^3/ul (0.83-4.51); Lymphocyte % 14.8 % (19-41); Mean Corp Hgb Conc 31.2 g/dL (32-36); Mean Corpuscular Hgb 30.2 pg (27.0-32.0); Mean Corpuscular Volume 96.8 fL (81-99); Mean Platelet Vol. 8.9 fl (6.2-12.0); Monocyte# 0.44 X10^3/uL; Monocyte% 5.1 % (0-10); NRBC Flagged by Analyzer 0 % (0-5); Neutrophil # 6.85 X10^3/uL (2.7-7.7); Neutrophil % 78.8 % (47-70); Platelet Count 217 K/mm3 (150-450); RBC Distribution Width CV 14.6 % (11.6-14.6); RBC Distribution Width SD 52.5 fl (35.1-43.9); Red Blood Count 4.04 M/mm3 (4.2-5.4); White Blood Count 8.7 K/mm3 (4.4-11.0)
[2020-11-16 00:40] LABS: Anion Gap 2 (5-15); BUN 28 mg/dL (7-18); BUN/Creat Ratio 19.6 RATIO (10-20); Calcium,Total 7.5 mg/dL (8.5-10.1); Chloride 111 mmol/L (98-107); Creatinine, Serum 1.43 mg/dL (0.55-1.02); EST Glomerular Filtration Rate 38 mL/min (>60); Est Glom Filt Rate - Afr Amer 46 mL/min (>60); Estimated Creatinine Clearance 25.23 ml/min; Glucose 75 mg/dL (74-106); Potassium 4.4 mmol/L (3.5-5.1); Sodium Level 139 mmol/L (136-145); Troponin-I HS 31 pg/mL (3.0-54.0)
--- NOTE | 2020-11-16 02:43 | ED.RN ---
pt eating food at the bedside.pt has to be encouraged like she was earlier when her blood sugar was 40's upon arrival.
[2020-11-16 03:04] VITALS: BP 114/89; PULSE 67; RESP 18; O2SAT 96
[2020-11-16 03:37] LABS: Troponin-I HS 37 pg/mL (3.0-54.0)
[2020-11-16 04:03] VITALS: BP 114/69; PULSE 68; RESP 18; O2SAT 95
== END 2020-11-16 04:04 | disposition home or self-care (01) ==
LOC: ED 11-16 00:26
PROVIDERS: Emergency Provider Emergency Medicine; PCP Registered Nurse
DX: U07.1 COVID-19 (principal); J12.82 Pneumonia due to coronavirus disease 2019; J44.0 Chronic obstructive pulmonary disease with (acute) lower respiratory infection; I50.9 Heart failure, unspecified; I13.0 Hypertensive heart and chronic kidney disease with heart failure and stage 1 through stage 4 chronic kidney disease, or unspecified chronic kidney disease; E11.22 Type 2 diabetes mellitus with diabetic chronic kidney disease; F17.210 Nicotine dependence, cigarettes, uncomplicated; N18.9 Chronic kidney disease, unspecified; I25.10 Atherosclerotic heart disease of native coronary artery without angina pectoris; K21.9 Gastro-esophageal reflux disease without esophagitis; E78.5 Hyperlipidemia, unspecified; Z79.51 Long term (current) use of inhaled steroids; Z79.899 Other long term (current) drug therapy
CPT/HCPCS: 36415; 71045; 80048; 84484; 85025; 93005; 96360; 96361; 99285; J7030; A4216

== ENCOUNTER 2020-11-22 13:02 | Inpatient (IN) | payer MEDICARE, SELFPAY ==
[2017-12-22 12:49] VITALS: BMI 49.4
[2020-11-22] VITALS (9 sets, daily range): BP systolic 114–194; BP diastolic 47–121; PULSE 60–85; RESP 14–20; TEMP 36.1–36.9; O2SAT 88–100; BMI 36.6; BMI 38.2
--- NOTE | 2020-11-22 13:36 | CT_ITS ---
HISTORY: abd pain, n/v EXAMINATION: CT Abdomen And Pelvis W/ Contrast Injection TECHNIQUE: Helically acquired images were obtained of the abdomen and pelvis following IV contrast. A radiation dose optimization technique was used for this scan. IV Contrast dosage and agent: 100mL [id number] Oral contrast: None. COMPARISON: 09/03/20 FINDINGS: LOWER CHEST: Decreasing size right lower lobe nodular opacity from 12 to 10 mm. Increasing reticular nodular opacities in the right middle lobe. New patchy airspace disease at the left lung base with small consolidation. No cardiomegaly or pericardial effusion. LIVER: Homogeneous. No focal mass. GALLBLADDER AND BILIARY TREE: Cholecystectomy. Stable postoperative mild biliary ductal dilation. PANCREAS: No focal cystic or solid mass. SPLEEN: Normal size without focal cystic or solid mass. ADRENAL GLANDS: No nodules. KIDNEYS AND URETERS: Stable right cortical cyst. No hydronephrosis. PERITONEUM: No ascites or free air. BOWEL: Stable surgical changes from prior gastric bypass and subtotal colectomy with right lower quadrant ostomy. Small bowel distention up to 5 mm with transition in the left lower quadrant and nondistended distal small bowel loops in the lower abdomen and pelvis. LYMPH NODES: No enlarged mesenteric or retroperitoneal lymph nodes. VESSELS: Aorta is non-dilated. URINARY BLADDER: Nondistended. REPRODUCTIVE ORGANS: No pelvic masses. ABDOMINAL WALL: No discrete abdominal or pelvic wall hernia. BONES: No acute or aggressive abnormality. CT/Abdomen/Pelvis W IV Cont ONLY IMPRESSION: Findings consistent with small bowel obstruction, transition in the left lower quadrant. Increasing airspace disease in the right middle and left lower lobes with small left basilar consolidation. Findings suspicious for infection. Individualized dose optimization techniques were used for this CT. at 1603 Reported and signed by: Junaid Llanes MD Electronically Signed: Junaid Llanes MD at 16:02 EDT Tel , Service support ,
--- NOTE | 2020-11-22 13:37 | ED.VIS.GI ---
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 She states she has had output in her ileostomy today, and there appeared to be some pus at the site when she switched her back this morning. Patient has had Covid symptoms for 14 days, she tested positive for Covid, she has been feeling much better. She has had no fevers for more than a week. She was not hospitalized for Covid. 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) Stenosis of right carotid artery Tobacco abuse VBI (vertebrobasilar insufficiency) Home Medications citalopram 20 mg PO DAILY 02/28/13 [History Last Taken 02/25/20] albuterol sulfate 2 puff INHALATION Q6H PRN PRN 07/15/14 [History Last Taken 02/25/20] atorvastatin 40 mg PO QHS 08/17/18 [History Last Taken 02/24/20] metoprolol succinate 25 mg tablet,extended release 24 hr 12.5 mg PO DAILY tab 12/06/19 [History Last Taken 02/25/20] midodrine 5 mg tablet 2 tab PO Q8H tab 01/25/20 [History Last Taken 02/25/20 04:30] oxybutynin chloride 10 mg tablet,extended release 24 hr 10 mg PO DAILY 01/25/20 [History Last Taken 02/25/20] clopidogrel 75 mg PO DAILY 02/25/20 [History Last Taken 02/25/20] hydroxyzine HCl 25 mg PO QHS 02/25/20 [History Last Taken 02/24/20] pramipexole 1.5 mg PO TID PRN 02/25/20 [History Last Taken 02/25/20] loperamide 2 mg PO Q4H PRN PRN 02/26/20 [History Last Taken Unknown] furosemide 40 mg PO DAILY #30 tab 02/29/20 [Rx Last Taken Unknown] beclomethasone dipropionate 80 mcg/actuation HFA breath activated aerosol 1 inh INHALATION BID 03/11/20 [History Last Taken Unknown] montelukast 10 mg tablet 10 mg PO QHS 03/11/20 [History Last Taken Unknown] omeprazole 40 mg capsule,delayed release 40 mg PO DAILY 03/11/20 [History Last Taken Unknown] Pantoprazole Sodium 40 mg PO BID 03/13/20 [History Last Taken Unknown] nitroglycerin 0.4 mg sublingual tablet 0.4 mg SUBLINGUAL Q5M PRN #25 tab 08/04/20 [Rx Last Taken Unknown] ranolazine 1,000 mg tablet,extended release,12 hr 1,000 mg PO BID #60 tab 08/04/20 [Rx Last Taken Unknown] fluticasone furoate 2 mcg INHALATION DAILY 11/10/20 [History Last Taken Unknown] formoterol fumarate 2 ml INHALATION Q12H 11/10/20 [History Last Taken Unknown] ipratropium-albuterol 3 ml INHALATION Q6H PRN 11/10/20 [History Last Taken Unknown] pramipexole [Mirapex] 1.5 mg PO BID 11/10/20 [History Last Taken Unknown] Allergy/AdvReac Type Severity Reaction Status Date / Time aspirin [ASA] Allergy Severe Hives Verified 11/22/20 13:04 ferrous sulfate Allergy Intermediate Hives Verified 11/22/20 13:04 bupropion [From Wellbutrin] Allergy headache Verified 11/22/20 13:04 codeine Allergy Hives Verified 11/22/20 13:04 meperidine HCl [From Demerol] Allergy Hives Verified 11/22/20 13:04 naproxen sodium Allergy Hives Verified 11/22/20 13:04 [From Anaprox] propoxyphene HCl Allergy Hives Verified 11/22/20 13:04 [From [place]] Sulfa (Sulfonamide Allergy hives, Verified 11/22/20 13:04 Antibiotics) trouble breathing gabapentin AdvReac Intermediate Mental Verified 11/22/20 13:04 status change, foggy headed NSAIDS (Non-Steroidal AdvReac Hives Verified 11/22/20 13:04 Anti-Inflamma Family History Mother CVA (cerebral vascular accident) Father Asthma Hypertension High blood cholesterol level Arthritis Surgical History H/O bariatric surgery History of section History of cholecystectomy History of coronary artery stent placement (12/11/19) History of right knee joint replacement History of right-sided carotid endarterectomy (07/2014) left subclavian artery stent (03/2017) Social History Smoking Status: Current every day smoker tobacco type: cigarettes how long ago did patient quit smokin weeks ago second hand exposure: Yes alcohol intake: never substance use type: does not use caffeine: Yes Type: coffee Number of servings: 6 what type of physical activity do you participate in: none ROS ROS ED Constitutional Constitutional ED: Denies chills or fever(s) Eyes Eyes: Denies change in vision or diplopia ENT ENT ED: Denies rhinorrhea or sore throat Cardiovascular Cardiovascular: Denies chest pain or palpitations Respiratory/Chest Respiratory/Chest: Reports cough; Denies dyspnea Gastrointestinal Gastrointestinal: Reports as per HPI, abdominal pain, nausea and vomiting Genitourinary Genitourinary ED: Denies dysuria or hematuria Musculoskeletal Musculoskeletal: Denies back pain or neck pain Integumentary Denies abscess or rash Neurologic Neurologic: Denies headache(s), paresthesias or weakness Psychiatric Psychiatric: Denies anxiety or suicidal thoughts EXAM Physical Exam Const Vital Signs: 11/22/20 13:04 11/22/20 15:48 Temperature 98.4 F Temperature Source Temporal Pulse Rate 85 76 Respiratory Rate 20 H 14 Blood Pressure 194/121 H 119/66 Blood Pressure Mean 145 83 Pulse Ox 95 99 Oxygen Delivery Method Room Air Positive well nourished, well developed and obese General Appearance ED: well developed and NAD Nutritional Appearance: obese HEENT Reports moist mucous membranes normocephalic and atraumatic Eyes PERRL and EOMs intact bilaterally Neck full ROM and supple Resp normal respiratory effort and clear to auscultation bilaterally Cardio regular rate, regular rhythm and no murmurs GI non-distended GI Narrative: Tender around the left mid abdomen, no palpable hernias. Ileostomy in place, site benign, there is brown liquid in the ileostomy bag along with white flecks of something Auscultation: hypoactive bowel sounds Palpation: soft Back/Spine no CVA tenderness General Back: other FROM Extremity normal to inspection General Extremety ED: Negative for edema, pulses abnormal or tenderness General Extremity: Negative for edema or pulses abnormal Neuro oriented x3, CN's II-XII intact bilaterally and no sensory deficits noted Sensorium / Orientation: awake and alert Motor Exam: strength 5/5 throughout Skin no rashes or lesions noted and no wounds MDM MDM MDM Narrative Medical decision making narrative: CT is consistent with a small bowel obstruction for which she will be admitted. She was treated with IV fluids, Zofran, morphine and did have some improvement in the emergency department. Clinically and hemodynamically stable. Given her mild hyperkalemia from her renal insufficiency will obtain EKG. infiltrates seen in her lung bases are likely related to Covid that she has been dealing with. She is not hypoxic. Will add a procalcitonin. Discussed with Dr. Putnam with surgery who agrees with bringing her in and requests an NG tube which is ordered. Patient is doing much better and is clinically and hemodynamically stable. Lab Data Attestation: I reviewed the patient's lab results. Labs: Laboratory Results - last 24 hr 11/22/20 11/22/20 11/22/20 14:15 14:15 14:15 WBC 13.3 H RBC 4.27 Hgb 12.8 Hct 40.3 MCV 94.4 MCH 30.0 MCHC 31.8 L RDW Std Deviation 50.6 H RDW Coeff of [place] 14.6 Plt Count 295 MPV 8.6 Immature Gran % (Auto) 1.500 H Neut % (Auto) 79.5 H Lymph % (Auto) 12.8 L [place] % (Auto) 4.7 Eos % (Auto) 1.2 Baso % (Auto) 0.3 Absolute Neuts (auto) 10.6 H Absolute Lymphs (auto) 1.70 Nucleated RBC % 0 Sodium 141 Potassium 5.2 H Chloride 111 H Carbon Dioxide 28.0 Anion Gap 2 L BUN 27 H Creatinine 1.21 H Estim Creat Clear Calc 29.82 Est GFR (MDRD) Af Amer 55 L Est GFR (MDRD) Non-Af 46 L BUN/Creatinine Ratio 22.3 H Glucose 81 Calcium 8.8 Magnesium 1.8 Total Bilirubin 0.60 AST 63 H ALT 90 H Alkaline Phosphatase 83 Total Protein 7.7 Albumin 2.8 L Globulin 4.9 H Albumin/Globulin Ratio 0.6 L Lipase 111 Procalcitonin Urine Color Urine Clarity Urine pH Ur Specific [place] Urine Protein Urine Glucose (UA) Urine Ketones Urine Occult Blood Urine Nitrite Urine Bilirubin Urine Urobilinogen Ur Leukocyte Esterase Urine RBC Urine WBC Ur Squamous Epith Cells Urine Bacteria Urine Mucus 11/22/20 11/22/20 14:25 16:24 WBC RBC Hgb Hct MCV MCH MCHC RDW Std Deviation RDW Coeff of [place] Plt Count MPV Immature Gran % (Auto) Neut % (Auto) Lymph % (Auto) [place] % (Auto) Eos % (Auto) Baso % (Auto) Absolute Neuts (auto) Absolute Lymphs (auto) Nucleated RBC % Sodium Potassium Chloride Carbon Dioxide Anion Gap BUN Creatinine Estim Creat Clear Calc Est GFR (MDRD) Af Amer Est GFR (MDRD) Non-Af BUN/Creatinine Ratio Glucose Calcium Magnesium Total Bilirubin AST ALT Alkaline Phosphatase Total Protein Albumin Globulin Albumin/Globulin Ratio Lipase Procalcitonin 0.09 Urine Color Yellow Urine Clarity Clear Urine pH 5.0 Ur Specific [place] 1.020 Urine Protein 100 H Urine Glucose (UA) Normal Urine Ketones Negative Urine Occult Blood 10 H Urine Nitrite Negative Urine Bilirubin Negative Urine Urobilinogen Normal Ur Leukocyte Esterase 25 H Urine RBC 0 SEEN Urine WBC 0-5 SEEN Ur Squamous Epith Cells 0 SEEN Urine Bacteria 0 SEEN Urine Mucus 0 SEEN Radiography Diagnostic Testing: Radiology Impression Abdomen/Pelvis CT 11/22/20 13:36 IMPRESSION: Findings consistent with small bowel obstruction, transition in the left lower quadrant. Increasing airspace disease in the right middle and left lower lobes with small left basilar consolidation. Findings suspicious for infection. Individualized dose optimization techniques were used for this CT. at 1603 Reported and signed by: Junaid Llanes MD Electronically Signed: Junaid Llanes MD at 16:02 EDT Tel , Service support , EKG Initial EKG: Attestation: I personally reviewed and interpreted this EKG as follows: Interpretation: Sinus Rhythm and No Acute Injury Pattern Comments: Q waves anteriorly. No changes of hyperkalemia. Discharge Plan Dx/Rx/DC Orders Clinical Impression: Small bowel obstruction, Pneumonia due to COVID-19 virus Disposition Disposition: Acute Care Hospital [facility] Discharge Date/Time: 11/22/20 18:39
[2020-11-22] MEDS: Ondansetron 4 MG/2 ML Vial IV (14:22)
[2020-11-22] MEDS: 0.9% Normal Saline 1,000 ML 1000 ML IV (14:22)
[2020-11-22] MEDS: Morphine 4 MG/ML Syringe IV (14:23)
[2020-11-22 14:24] LABS: Absolute Neutrophil Count 10.6 X10^3/uL (2.0-7.7); Basophil# 0.04 X10^3/uL; Basophil% 0.3 % (0-1); Eosinophil# 0.16 X10^3/uL; Eosinophils% 1.2 % (0-5); Hematocrit 40.3 % (37-47); Hemoglobin 12.8 g/dL (12.0-15.0); Lymphocyte % 12.8 % (19-41); Mean Corp Hgb Conc 31.8 g/dL (32-36); Mean Corpuscular Volume 94.4 fL (81-99); Mean Platelet Vol. 8.6 fl (6.2-12.0); Monocyte# 0.62 X10^3/uL; Monocyte% 4.7 % (0-10); NRBC Flagged by Analyzer 0 % (0-5); Neutrophil # 10.56 X10^3/uL (2.7-7.7); Neutrophil % 79.5 % (47-70); Platelet Count 295 K/mm3 (150-450); RBC Distribution Width CV 14.6 % (11.6-14.6); RBC Distribution Width SD 50.6 fl (35.1-43.9); Red Blood Count 4.27 M/mm3 (4.2-5.4); White Blood Count 13.3 K/mm3 (4.4-11.0)
[2020-11-22 14:36] LABS: Bacteria 0 SEEN /hpf (None Seen); Mucous, Urine 0 SEEN /hpf (<or=2+); Red Blood Cells-Urine 0 SEEN /hpf (0-5); Squamous Epithelial Cells - UA 0 SEEN /hpf (5-10)
[2020-11-22 14:38] LABS: Color, Urine Yellow (Yellow); Glucose, Dipstick Normal (Normal); Ketone-Dipstick Negative (Negative); Leukocyte Esterase-Dipstick 25 /ul (Negative); Nitrite-Dipstick Negative (Negative); Occult Blood-Urine 10 /ul (Negative); Protein-Dipstick 100 mg/dl (Negative); Urine Bilirubin Dipstick Negative (Negative); Urine Clarity Clear (Clear); Urine Urobilinogen Normal (Normal)
[2020-11-22 14:39] LABS: ALB/GLOB Ratio 0.6 RATIO (0.9-2.4); AST(SGOT) 63 U/L (15-37); Alanine Aminotransfer ALT/SGPT 90 U/L (13-56); Albumin, Serum 2.8 g/dL (3.2-5.0); Alkaline Phosphatase 83 U/L (45-117); Anion Gap 2 (5-15); BUN 27 mg/dL (7-18); BUN/Creat Ratio 22.3 RATIO (10-20); Calcium,Total 8.8 mg/dL (8.5-10.1); Chloride 111 mmol/L (98-107); Creatinine, Serum 1.21 mg/dL (0.55-1.02); EST Glomerular Filtration Rate 46 mL/min (>60); Est Glom Filt Rate - Afr Amer 55 mL/min (>60); Estimated Creatinine Clearance 29.82 ml/min; Globulin 4.9 g/dL (2.2-4.2); Glucose 81 mg/dL (74-106); Lipase 111 U/L (73-393); Potassium 5.2 mmol/L (3.5-5.1); Protein, Total 7.7 g/dL (6.4-8.2); Sodium Level 141 mmol/L (136-145)
[2020-11-22 15:09] LABS: White Blood Cells 0-5 SEEN /hpf (0-5)
--- NOTE | 2020-11-22 17:08 | EKG12_ITS ---
Test Reason : Blood Pressure : / mmHG Vent. Rate : 063 BPM Atrial Rate : 063 BPM P-R Int : 188 ms QRS Dur : 080 ms QT Int : 408 ms P-R-T Axes : 065 058 086 degrees QTc Int : 417 ms Normal sinus rhythm Septal infarct , age undetermined Abnormal ECG Confirmed by SANDI LEI, WILBERTO ([id number]), general expeditor ANDIE GARY ([id number]) on 11/24/2020 1:31:22 PM Referred By: RENAE Confirmed By:WILBERTO JUNIOR MD
--- NOTE | 2020-11-22 17:20 | HP.PCM.HOS_ITS ---
HPI - General General Date of Admission: 11/22/20 HPI Narrative KAREN VILLANUEVA, is a 80 F who presents with multiple morbidities came to ER with abdominal pain that started today. She has history of obstructed internal hernia and had subtotal colectomy with ileostomy in [facility]. Patient came to ER with sudden onset of abdominal pain around ileostomy and became generalized. She also had about 3 times bilious type vomiting which dry heaving. Since our last fecal matter in ileostomy about 3 days ago. She also had Covid tested positive about 2 weeks ago and was seen in ER on 11/10/2020 at that time her pulse ox was 85% on room air. Cough and shortness of breath for last several days. She does not have fever or chills. She has chronic cough due to history of COPD on home oxygen as needed but has got exacerbated since Covid infection about 2 weeks ago. Frequency and severity of cough has not changed much the last [address] abdomen reviewed and shows small bowel obstruction with transition point in left lower quadrant. Lower lung [place] shows airspace disease in both lower lobes with a small left lung base consolidation. 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) Stenosis of right carotid artery Tobacco abuse VBI (vertebrobasilar insufficiency) Home Medications citalopram 20 mg PO DAILY 02/28/13 [History Last Taken 02/25/20] albuterol sulfate 2 puff INHALATION Q6H PRN PRN 07/15/14 [History Last Taken 02/25/20] atorvastatin 40 mg PO QHS 08/17/18 [History Last Taken 02/24/20] metoprolol succinate 25 mg tablet,extended release 24 hr 12.5 mg PO DAILY tab 12/06/19 [History Last Taken 02/25/20] midodrine 5 mg tablet 2 tab PO Q8H tab 01/25/20 [History Last Taken 02/25/20 04:30] oxybutynin chloride 10 mg tablet,extended release 24 hr 10 mg PO DAILY 01/25/20 [History Last Taken 02/25/20] clopidogrel 75 mg PO DAILY 02/25/20 [History Last Taken 02/25/20] hydroxyzine HCl 25 mg PO QHS 02/25/20 [History Last Taken 02/24/20] pramipexole 1.5 mg PO TID PRN 02/25/20 [History Last Taken 02/25/20] loperamide 2 mg PO Q4H PRN PRN 02/26/20 [History Last Taken Unknown] furosemide 40 mg PO DAILY #30 tab 02/29/20 [Rx Last Taken Unknown] beclomethasone dipropionate 80 mcg/actuation HFA breath activated aerosol 1 inh INHALATION BID 03/11/20 [History Last Taken Unknown] montelukast 10 mg tablet 10 mg PO QHS 03/11/20 [History Last Taken Unknown] omeprazole 40 mg capsule,delayed release 40 mg PO DAILY 03/11/20 [History Last Taken Unknown] Pantoprazole Sodium 40 mg PO BID 03/13/20 [History Last Taken Unknown] nitroglycerin 0.4 mg sublingual tablet 0.4 mg SUBLINGUAL Q5M PRN #25 tab 08/04/20 [Rx Last Taken Unknown] ranolazine 1,000 mg tablet,extended release,12 hr 1,000 mg PO BID #60 tab 08/04/20 [Rx Last Taken Unknown] fluticasone furoate 2 mcg INHALATION DAILY 11/10/20 [History Last Taken Unknown] formoterol fumarate 2 ml INHALATION Q12H 11/10/20 [History Last Taken Unknown] ipratropium-albuterol 3 ml INHALATION Q6H PRN 11/10/20 [History Last Taken Unknown] pramipexole [Mirapex] 1.5 mg PO BID 11/10/20 [History Last Taken Unknown] Allergy/AdvReac Type Severity Reaction Status Date / Time aspirin [ASA] Allergy Severe Hives Verified 11/22/20 13:04 ferrous sulfate Allergy Intermediate Hives Verified 11/22/20 13:04 bupropion [From Wellbutrin] Allergy headache Verified 11/22/20 13:04 codeine Allergy Hives Verified 11/22/20 13:04 meperidine HCl [From Demerol] Allergy Hives Verified 11/22/20 13:04 naproxen sodium Allergy Hives Verified 11/22/20 13:04 [From Anaprox] propoxyphene HCl Allergy Hives Verified 11/22/20 13:04 [From [place]] Sulfa (Sulfonamide Allergy hives, Verified 11/22/20 13:04 Antibiotics) trouble breathing gabapentin AdvReac Intermediate Mental Verified 11/22/20 13:04 status change, foggy headed NSAIDS (Non-Steroidal AdvReac Hives Verified 11/22/20 13:04 Anti-Inflamma Family History Mother CVA (cerebral vascular accident) Father Asthma Hypertension High blood cholesterol level Arthritis Surgical History H/O bariatric surgery History of section History of cholecystectomy History of coronary artery stent placement (12/11/19) History of right knee joint replacement History of right-sided carotid endarterectomy (07/2014) left subclavian artery stent (03/2017) Social History Smoking Status: Current every day smoker tobacco type: cigarettes how long ago did patient quit smokin weeks ago second hand exposure: Yes alcohol intake: never substance use type: does not use caffeine: Yes Type: coffee Number of servings: 6 what type of physical activity do you participate in: none ROS ROS Narrative Constitutional: Reports fatigue and weakness HEENT: Reports systems reviewed and no addt'l complaints, except as documented Respiratory/Chest: Chronic cough, worse for last 2 weeks with wheezing. Denies chest pain. Currently smoker Gastrointestinal: As mentioned in HPI. No GI bleed or blood in ileostomy Genitourinary: Denies burning urination or new urinary tract symptoms Musculoskeletal: Denies joint pain and limited range of motion Neurologic: Denies seizure-like activity skin: No ulcer. No rash Endocrinology: Reports systems reviewed and no addt'l complaints, except as documented Hematologic/Lymphatic: Reports systems reviewed and no addt'l complaints, except as documented Rest 12 ROS are negative except as mentioned in HPI Vital Signs Vital Signs Vital Signs: 11/22/20 13:04 11/22/20 15:48 Temperature 98.4 F Temperature Source Temporal Pulse Rate 85 76 Respiratory Rate 20 H 14 Blood Pressure 194/121 H 119/66 Blood Pressure Mean 145 83 Pulse Ox 95 99 Oxygen Delivery Method Room Air Weight Weight: 200 lb Body Mass Index (BMI) 36.6 Physical Exam Narrative General: Alert, Oriented x3, Cooperative HEENT: Atraumatic, PERRLA, EOMI, Normocephalic Oral: No Gingival or Mucosal Lesions/ Ulcerations Neck: Supple, No JVD, Negative Carotid Bruits Lungs: Air entry diminished in bilateral lung bases. Bilateral expiratory rhonchi and wheezing. Cardiovascular: Sinus rhythm, Normal S1, Normal S2, No murmurs Abdomen: Ileostomy shows clear serous fluid. Bowel Sounds Present, soft, tenderness present over left lower quadrant. : No renal angle tenderness. No suprapubic tenderness. Extremities: Mild to moderate bilateral lower leg edema, Capillary Refill Less than 3 Seconds Skin: No rashes, No breakdown Musculoskeletal: No Tenderness to Palpation of Joints or Extremities Neurological: Cranial nerves II-XII grossly intact, DTR 2+/4 and Symmetrical, Neuro grossly intact Psych/Mental Status: Normal Affect, Appropriate. Results Lab / Micro Data Result Diagrams: 11/22/20 14:15 11/22/20 14:15 Labs: Laboratory Results - last 24 hr 11/22/20 14:15: WBC 13.3 H, RBC 4.27, Hgb 12.8, Hct 40.3, MCV 94.4, MCH 30.0, MCHC 31.8 L, RDW Std Deviation 50.6 H, RDW Coeff of Abiola 14.6, Plt Count 295, MPV 8.6, Immature Gran % (Auto) 1.500 H, Neut % (Auto) 79.5 H, Lymph % (Auto) 12.8 L , [place] % (Auto) 4.7, Eos % (Auto) 1.2, Baso % (Auto) 0.3, Absolute Neuts (auto) 10.6 H, Absolute Lymphs (auto) 1.70, Nucleated RBC % 0 11/22/20 14:15: Sodium 141, Potassium 5.2 H, Chloride 111 H, Carbon Dioxide 28.0, Anion Gap 2 L, BUN 27 H, Creatinine 1.21 H, Estim Creat Clear Calc 29.82, Est GFR (MDRD) Af Amer 55 L, Est GFR (MDRD) Non-Af 46 L, BUN/Creatinine Ratio 22.3 H, Glucose 81, Calcium 8.8, Total Bilirubin 0.60, AST 63 H, ALT 90 H, Alkaline Phosphatase 83, Total Protein 7.7, Albumin 2.8 L, Globulin 4.9 H, Albumin/Globulin Ratio 0.6 L, Lipase 111 11/22/20 14:25: Urine Color Yellow, Urine Clarity Clear, Urine pH 5.0, Ur Specific [place] 1.020, Urine Protein 100 H, Urine Glucose (UA) Normal, Urine Ketones Negative, Urine Occult Blood 10 H, Urine Nitrite Negative, Urine Bilirubin Negative, Urine Urobilinogen Normal, Ur Leukocyte Esterase 25 H, Urine RBC 0 SEEN, Urine WBC 0-5 SEEN, Ur Squamous Epith Cells 0 SEEN, Urine Bacteria 0 SEEN, Urine Mucus 0 SEEN Radiology Impression Abdomen/Pelvis CT 11/22/20 13:36 IMPRESSION: Findings consistent with small bowel obstruction, transition in the left lower quadrant. Increasing airspace disease in the right middle and left lower lobes with small left basilar consolidation. Findings suspicious for infection. Individualized dose optimization techniques were used for this CT. at 1603 Reported and signed by: Junaid Llanes MD Electronically Signed: Junaid Llanes MD at 16:02 EDT Tel , Service support , Assessment & Plan Assessment/Plan (1) Small bowel obstruction: PLAN: The patient is a 79 year old F admitted 02/25/2020 due to shortness of breath. 1. 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 NPO. IV fluid normal saline. Surgeon Dr. Putnam is being consulted. Patient had last admission in February 2020 for similar condition acute abdomin al pain due to complicated hernia/ileus and resolved spontaneously. Mild leukocytosis. Hold oral home medications. Mild hyperkalemia, EKG ordered. Serum magnesium normal 2. Recent Covid 19 pneumonia about 2 weeks ago with chronic hypoxic respiratory insufficiency secondary to chronic heart failure with preserved ejection fraction and COPD: Patient recent echo EF 65%, mild to moderate mitral valve insufficiency. Currently on IV fluid with titration based on intake and output, with caution to watch for fluid overload. Patient completed Decadron. Advised incentive spirometry. 3. chronic normocytic anemia-patient had EGD in February 2020 shows no obvious signs of ulceration at the anastomosis or bleeding. Continue PPI IV empirically. Current hemoglobin 12.8. 4. CAD with history of recent stent 12/02/2019-continue Plavix, statin, metoprolol. 5. COPD-continue patient's home inhalers. Oxygen therapy to keep pulse ox 90%. Incentive spirometry. 6. JESSICA: Patient follows in pulmonary clinic but noncompliant. 7. Type 2 diabetes [id number] AC at bedtime coverage Humalog sliding scale 8. Restless leg syndrome: 9. Chronic smoker with nicotine dependence: Encouraged cessation. On nicotine patch. Living will/advanced directive/end of life care: Patient does have living will or advanced directive. After discussion of benefits/risks procedures involved with full code, DNR CC arrest and DNR CC, the patient and her opted for DNR-CC Arrest with no intubation Patient does not want artificial life support including intubation, tube feed, ventilator and/chest compression, central venous catheter, vasopressor and DC shock if needed Total time spent in [id number] encounter in discussion of advanced directive 16 minutes. Clinical Impression(s) from Imaging Studies Abdomen/Pelvis CT 11/22/20 13:36 IMPRESSION: Findings consistent with small bowel obstruction, transition in the left lower quadrant. Increasing airspace disease in the right middle and left lower lobes with small left basilar consolidation. Findings suspicious for infection. Individualized dose optimization techniques were used for this CT. Charges/Coding Visit Charges Inpatient E&M: 39678 Init Hosp L3 Procedures Hospitalists Procedures: 58922 Advncd Care Plan 30 Min
[2020-11-22 17:23] LABS: Procalcitonin 0.09 ng/mL (0.00-0.09)
[2020-11-22 17:31] LABS: Magnesium 1.8 mg/dL (1.6-2.6)
--- NOTE | 2020-11-22 17:50 | RAD_ITS ---
HISTORY: NG PLACEMENT EXAMINATION/TECHNIQUE: XR Abdomen 1 View: COMPARISON: Chest x-ray 11/16/20 FINDINGS: Enteric tube passes below the diaphragm with the proximal side port at the GE junction. Tube should be advanced 15-20 cm. Patchy airspace opacity at the left lung base. No markedly distended bowel loops in the field of view. RAD/Abdomen Single View (Portable) IMPRESSION: Proximal position of the NG tube which should be advanced. at 1859 Reported and signed by: Junaid Llanes MD Electronically Signed: Junaid Llanes MD at 18:58 EDT Tel , Service support ,
[2020-11-22] MEDS: Oxymetazoline 0.05% 1 SPRAY SPRAY.BTL 2 SPRAY NASAL (17:51)
[2020-11-22] MEDS: Lidocaine 2% Jelly 1 APPLIC Tube TOPICAL (17:51)
--- NOTE | 2020-11-22 20:10 | NURSING ---
Returned call from pt's daughter Missy for update on pt.
[2020-11-22] MEDS: Ipratropium/Albuterol Sulfate 3 ML AMPUL.NEB INHALATION (20:23)
[2020-11-22] MEDS: Budesonide Respules 0.5 MG/2 ML AMPUL.NEB. INHALATION (20:23)
--- NOTE | 2020-11-22 20:59 | EX.PCM.CON.S ---
Assessment & Plan Assessment/Plan (1) Small bowel obstruction: PLAN: Patient states that her surgeon told her that she could not have any further abdominal surgery Hopefully, this SBO will resolve with NG decompression/ IV hydration/ pain medication Continue present therapy HPI Consult Data Date of Consult: 11/22/20 HPI Narrative HPI Narrative: KAREN VILLANUEVA, is a 80 F who presents with small bowel obstruction. She has a complicated surgical history. She is s/p gastric bariatric surgery in 2003. She subsequently developed ventral hernia. She underwent subtotal colectomy and end ileostomy in August 2018. She is s/p ventral hernia repair with right and left myofascial flaps in August 2020. She has been admitted to the hospital multiple times for small bowel obstructions - Dec 2019, Nov 2019, June 2019, Nov 2018, August 2018, May 2018, January 2018, Nov 2017, etc. She has multiple medical morbidities of the following - CAD, peripheral arterial disease, COPD/asthma, diabetes, hypertension, JESSICA, obesity. She had noted pain and abdominal bloating yesterday and noted only mucus/bile colored small amount of output via her stoma. She also had bouts of nausea and emesis. She states that she feels much improved with placement of NG tube. 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) Stenosis of right carotid artery Tobacco abuse VBI (vertebrobasilar insufficiency) Home Medications citalopram 20 mg PO DAILY 02/28/13 [History Last Taken 02/25/20] albuterol sulfate 2 puff INHALATION Q6H PRN PRN 07/15/14 [History Last Taken 02/25/20] atorvastatin 40 mg PO QHS 08/17/18 [History Last Taken 02/24/20] metoprolol succinate 25 mg tablet,extended release 24 hr 12.5 mg PO DAILY tab 12/06/19 [History Last Taken 02/25/20] midodrine 5 mg tablet 2 tab PO Q8H tab 01/25/20 [History Last Taken 02/25/20 04:30] oxybutynin chloride 10 mg tablet,extended release 24 hr 10 mg PO DAILY 01/25/20 [History Last Taken 02/25/20] clopidogrel 75 mg PO DAILY 02/25/20 [History Last Taken 02/25/20] hydroxyzine HCl 25 mg PO QHS 02/25/20 [History Last Taken 02/24/20] pramipexole 1.5 mg PO TID PRN 02/25/20 [History Last Taken 02/25/20] loperamide 2 mg PO Q4H PRN PRN 02/26/20 [History Last Taken Unknown] furosemide 40 mg PO DAILY #30 tab 02/29/20 [Rx Last Taken Unknown] beclomethasone dipropionate 80 mcg/actuation HFA breath activated aerosol 1 inh INHALATION BID 03/11/20 [History Last Taken Unknown] montelukast 10 mg tablet 10 mg PO QHS 03/11/20 [History Last Taken Unknown] omeprazole 40 mg capsule,delayed release 40 mg PO DAILY 03/11/20 [History Last Taken Unknown] Pantoprazole Sodium 40 mg PO BID 03/13/20 [History Last Taken Unknown] nitroglycerin 0.4 mg sublingual tablet 0.4 mg SUBLINGUAL Q5M PRN #25 tab 08/04/20 [Rx Last Taken Unknown] ranolazine 1,000 mg tablet,extended release,12 hr 1,000 mg PO BID #60 tab 08/04/20 [Rx Last Taken Unknown] fluticasone furoate 2 mcg INHALATION DAILY 11/10/20 [History Last Taken Unknown] formoterol fumarate 2 ml INHALATION Q12H 11/10/20 [History Last Taken Unknown] ipratropium-albuterol 3 ml INHALATION Q6H PRN 11/10/20 [History Last Taken Unknown] pramipexole [Mirapex] 1.5 mg PO BID 11/10/20 [History Last Taken Unknown] Allergy/AdvReac Type Severity Reaction Status Date / Time aspirin [ASA] Allergy Severe Hives Verified 11/22/20 13:04 ferrous sulfate Allergy Intermediate Hives Verified 11/22/20 13:04 bupropion [From Wellbutrin] Allergy headache Verified 11/22/20 13:04 codeine Allergy Hives Verified 11/22/20 13:04 meperidine HCl [From Demerol] Allergy Hives Verified 11/22/20 13:04 naproxen sodium Allergy Hives Verified 11/22/20 13:04 [From Anaprox] propoxyphene HCl Allergy Hives Verified 11/22/20 13:04 [From Darvon] Sulfa (Sulfonamide Allergy hives, Verified 11/22/20 13:04 Antibiotics) trouble breathing gabapentin AdvReac Intermediate Mental Verified 11/22/20 13:04 status change, foggy headed NSAIDS (Non-Steroidal AdvReac Hives Verified 11/22/20 13:04 Anti-Inflamma Family History Mother CVA (cerebral vascular accident) Father Asthma Hypertension High blood cholesterol level Arthritis Surgical History H/O bariatric surgery History of section History of cholecystectomy History of coronary artery stent placement (12/11/19) History of right knee joint replacement History of right-sided carotid endarterectomy (07/2014) left subclavian artery stent (03/2017) Social History Smoking Status: Current every day smoker tobacco type: cigarettes how long ago did patient quit smokin weeks ago second hand exposure: Yes alcohol intake: never substance use type: does not use caffeine: Yes Type: coffee Number of servings: 6 what type of physical activity do you participate in: none ROS Constitutional Constitutional: Denies chills or fever(s) Cardiovascular Cardiovascular: Denies chest pain Respiratory/Chest Respiratory/Chest: Denies productive cough Gastrointestinal Gastrointestinal: Reports abdominal pain, bloating, nausea and vomiting Genitourinary Genitourinary: Denies hematuria Musculoskeletal Musculoskeletal: Reports systems reviewed and no addt'l complaints, except as documented Physical Exam Const alert and oriented x3 HEENT normocephalic Resp normal respiratory effort GI GI Narrative: obese, soft and benign Lab / Micro Data Result Diagrams: 11/22/20 14:15 11/22/20 14:15 Labs: Laboratory Results - last 24 hr 11/22/20 14:15: WBC 13.3 H, RBC 4.27, Hgb 12.8, Hct 40.3, MCV 94.4, MCH 30.0, MCHC 31.8 L, RDW Std Deviation 50.6 H, RDW Coeff of Abiola 14.6, Plt Count 295, MPV 8.6, Immature Gran % (Auto) 1.500 H, Neut % (Auto) 79.5 H, Lymph % (Auto) 12.8 L, [place] % (Auto) 4.7, Eos % (Auto) 1.2, Baso % (Auto) 0.3, Absolute Neuts (auto) 10.6 H, Absolute Lymphs (auto) 1.70, Nucleated RBC % 0 11/22/20 14:15: Sodium 141, Potassium 5.2 H, Chloride 111 H, Carbon Dioxide 28.0, Anion Gap 2 L, BUN 27 H, Creatinine 1.21 H, Estim Creat Clear Calc 29.82, Est GFR (MDRD) Af Amer 55 L, Est GFR (MDRD) Non-Af 46 L, BUN/Creatinine Ratio 22.3 H, Glucose 81, Calcium 8.8, Total Bilirubin 0.60, AST 63 H, ALT 90 H, Alkaline Phosphatase 83, Total Protein 7.7, Albumin 2.8 L, Globulin 4.9 H, Albumin/Globulin Ratio 0.6 L, Lipase 111 11/22/20 14:15: Magnesium 1.8 11/22/20 14:25: Urine Color Yellow, Urine Clarity Clear, Urine pH 5.0, Ur Specific [place] 1.020, Urine Protein 100 H, Urine Glucose (UA) Normal, Urine Ketones Negative, Urine Occult Blood 10 H, Urine Nitrite Negative, Urine Bilirubin Negative, Urine Urobilinogen Normal, Ur Leukocyte Esterase 25 H, Urine RBC 0 SEEN, Urine WBC 0-5 SEEN, Ur Squamous Epith Cells 0 SEEN, Urine Bacteria 0 SEEN, Urine Mucus 0 SEEN 11/22/20 16:24: Procalcitonin 0.09 Radiology Impression Abdomen/Pelvis CT 11/22/20 13:36 IMPRESSION: Findings consistent with small bowel obstruction, transition in the left lower quadrant. Increasing airspace disease in the right middle and left lower lobes with small left basilar consolidation. Findings suspicious for infection. Individualized dose optimization techniques were used for this CT. at 1603 Reported and signed by: Junaid Llanes MD Electronically Signed: Junaid Llanes MD at 16:02 EDT Tel , Service support , KUB X-Ray 11/22/20 17:50 IMPRESSION: Proximal position of the NG tube which should be advanced. at 1859 Reported and signed by: Junaid Llanes MD Electronically Signed: Junaid Llanes MD at 18:58 EDT Tel , Service support ,
[2020-11-22] MEDS: 0.9% Normal Saline 1,000 ML 60 ML IV (21:30)
[2020-11-22] MEDS: Enoxaparin 30 MG/0.3 ML Syringe SC (21:33)
[2020-11-22] MEDS: Morphine 2 MG/ML Syringe IV (21:34)
[2020-11-22] MEDS: 0.9% Saline Lock 10 ML Syringe IV (21:41)
[2020-11-23] VITALS (12 sets, daily range): BP systolic 106–145; BP diastolic 57–94; PULSE 57–107; RESP 16–20; TEMP 36.8–37.3; O2SAT 92–98
--- NOTE | 2020-11-23 00:42 | PCS.PANDOC ---
PANDEMIC DOCUMENTATION INITIATED: Date: 10/27/2020 Time: 190
[2020-11-23 00:51] LABS: Bedside Glucose 77 mg/dL (70-110)
--- NOTE | 2020-11-23 01:26 | NURSING ---
Pt's blood glucose checked at 0039 by Karley Martinez. Reviewed and verified on glucometer by this RN. Result was 77. No SSI was given.
[2020-11-23] MEDS: Morphine 2 MG/ML Syringe IV ×2 (06:33→15:43)
[2020-11-23] MEDS: 0.9% Saline Lock 10 ML Syringe IV (06:34)
[2020-11-23] MEDS: Dextrose 50%-Water 25 GM/50 ML DISP.SYRIN IV ×2 (06:35→11:53)
[2020-11-23 06:45] LABS: Bedside Glucose 56 mg/dL (70-110)
[2020-11-23] MEDS: Ipratropium/Albuterol Sulfate 3 ML AMPUL.NEB INHALATION ×2 (07:15→18:48)
[2020-11-23] MEDS: Budesonide Respules 0.5 MG/2 ML AMPUL.NEB. INHALATION ×2 (07:15→18:48)
[2020-11-23 07:19] LABS: Anion Gap 4 (5-15); BUN 22 mg/dL (7-18); BUN/Creat Ratio 19.3 RATIO (10-20); Calcium,Total 7.9 mg/dL (8.5-10.1); Chloride 114 mmol/L (98-107); Creatinine, Serum 1.14 mg/dL (0.55-1.02); EST Glomerular Filtration Rate 49 mL/min (>60); Est Glom Filt Rate - Afr Amer 59 mL/min (>60); Estimated Creatinine Clearance 31.65 ml/min; Glucose 61 mg/dL (74-106); Phosphorus 3.8 mg/dL (2.5-4.9); Potassium 5.5 mmol/L (3.5-5.1); Sodium Level 139 mmol/L (136-145)
--- NOTE | 2020-11-23 07:47 | NURSING ---
Pt's blood glucose check this AM was 56. Pt was given 125g of D50 per protocol. Recheck 15 min later was 109. Hospitalist aware.
[2020-11-23 08:06] LABS: Bedside Glucose 109 mg/dL (70-110)
[2020-11-23 08:39] LABS: Absolute Lymphocyte Count 1.63 X10^3/uL (0.83-4.51); Absolute Neutrophil Count 7.8 X10^3/uL (2.0-7.7); Basophil# 0.03 X10^3/uL; Basophil% 0.3 % (0-1); Eosinophil# 0.23 X10^3/uL; Eosinophils% 2.2 % (0-5); Hematocrit 40.4 % (37-47); Hemoglobin 12.9 g/dL (12.0-15.0); Lymphocyte # 1.63 X10^3/ul (0.83-4.51); Lymphocyte % 15.6 % (19-41); Mean Corp Hgb Conc 31.9 g/dL (32-36); Mean Corpuscular Hgb 29.6 pg (27.0-32.0); Mean Corpuscular Volume 92.7 fL (81-99); Mean Platelet Vol. 9.8 fl (6.2-12.0); Monocyte# 0.64 X10^3/uL; Monocyte% 6.1 % (0-10); NRBC Flagged by Analyzer 0 % (0-5); Neutrophil # 7.75 X10^3/uL (2.7-7.7); Neutrophil % 73.9 % (47-70); POSITIVE COUNT YES; Platelet Count 212 K/mm3 (150-450); RBC Distribution Width CV 14.6 % (11.6-14.6); RBC Distribution Width SD 49.6 fl (35.1-43.9); Red Blood Count 4.36 M/mm3 (4.2-5.4); White Blood Count 10.5 K/mm3 (4.4-11.0)
[2020-11-23 09:19] LABS: Differential Indicated SCAN CRITERIA MET
[2020-11-23 09:20] LABS: Differential Comment SCANNED
[2020-11-23] MEDS: Enoxaparin 30 MG/0.3 ML Syringe SC (09:20)
[2020-11-23] MEDS: Dext 5%-0.45% NS 1,000 ML 60 ML IV (11:52)
--- NOTE | 2020-11-23 12:24 | PN.HOSP_ITS ---
Subjective Subjective Patient has NG tube and had bilious aspirate. Patient ileostomy bag is also full of physical matter. Blood pressure and heart rate are good. No fever Objective Data Objective Data Vital Signs: Vital Signs Temp Pulse Resp BP Pulse Ox 98.2 F 72 18 145/94 H 93 11/23/20 09:24 11/23/20 09:24 11/23/20 09:24 11/23/20 09:24 11/23/20 09:24 Oxygen Flow Rate (L/min) 4 Oxygen Delivery Method Nasal Cannula Weight: 210 lb 12.191 oz Body Mass Index (BMI) 38.2 Intake & Output: Intake and Output for Last 24 Hours 11/21/20 11/22/20 11/23/20 23:59 23:59 23:59 Intake Total 1111 / 1111 953 / 953 Output Total 825 / 825 Balance 1111 / 761 128 / 128 Lab / Micro Data Result Diagrams: 11/23/20 08:30 11/23/20 06:35 Labs: Laboratory Results - last 24 hr 11/22/20 14:15: WBC 13.3 H, RBC 4.27, Hgb 12.8, Hct 40.3, MCV 94.4, MCH 30.0, MCHC 31.8 L, RDW Std Deviation 50.6 H, RDW Coeff of Abiola 14.6, Plt Count 295, MPV 8.6, Immature Gran % (Auto) 1.500 H, Neut % (Auto) 79.5 H, Lymph % (Auto) 12.8 L , [place] % (Auto) 4.7, Eos % (Auto) 1.2, Baso % (Auto) 0.3, Absolute Neuts (auto) 10.6 H, Absolute Lymphs (auto) 1.70, Nucleated RBC % 0 11/22/20 14:15: Sodium 141, Potassium 5.2 H, Chloride 111 H, Carbon Dioxide 28.0, Anion Gap 2 L, BUN 27 H, Creatinine 1.21 H, Estim Creat Clear Calc 29.82, Est GFR (MDRD) Af Amer 55 L, Est GFR (MDRD) Non-Af 46 L, BUN/Creatinine Ratio 22.3 H, Glucose 81, Calcium 8.8, Total Bilirubin 0.60, AST 63 H, ALT 90 H, Alkaline Phosphatase 83, Total Protein 7.7, Albumin 2.8 L, Globulin 4.9 H, Albumin/Globulin Ratio 0.6 L, Lipase 111 11/22/20 14:15: Magnesium 1.8 11/22/20 14:25: Urine Color Yellow, Urine Clarity Clear, Urine pH 5.0, Ur Specific [place] 1.020, Urine Protein 100 H, Urine Glucose (UA) Normal, Urine Ketones Negative, Urine Occult Blood 10 H, Urine Nitrite Negative, Urine Bilirubin Negative, Urine Urobilinogen Normal, Ur Leukocyte Esterase 25 H, Urine RBC 0 SEEN, Urine WBC 0-5 SEEN, Ur Squamous Epith Cells 0 SEEN, Urine Bacteria 0 SEEN, Urine Mucus 0 SEEN 11/22/20 16:24: Procalcitonin 0.09 11/23/20 00:39: POC Glucose 77 11/23/20 06:15: POC Glucose 56 L 11/23/20 06:35: Sodium 139, Potassium 5.5 H, Chloride 114 H, Carbon Dioxide 2 1.0, Anion Gap 4 L, BUN 22 H, Creatinine 1.14 H, Estim Creat Clear Calc 31.65, Est GFR (MDRD) Af Amer 59 L, Est GFR (MDRD) Non-Af 49 L, BUN/Creatinine Ratio 19.3, Glucose 61 L, Calcium 7.9 L, Phosphorus 3.8 11/23/20 06:59: POC Glucose 109 11/23/20 08:30: WBC 10.5, RBC 4.36, Hgb 12.9, Hct 40.4, MCV 92.7, MCH 29.6, MCHC 31.9 L, RDW Std Deviation 49.6 H, RDW Coeff of Abiola 14.6, Plt Count 212, MPV 9.8, Immature Gran % (Auto) 1.900 H, Neut % (Auto) 73.9 H, Lymph % (Auto) 15.6 L, [place] % (Auto) 6.1, Eos % (Auto) 2.2, Baso % (Auto) 0.3, Absolute Neuts (auto) 7.8 H, Absolute Lymphs (auto) 1.63, Nucleated RBC % 0, Differential Comment SCANNED Radiography Diagnostic Testing: Radiology Impression Abdomen/Pelvis CT 11/22/20 13:36 IMPRESSION: Findings consistent with small bowel obstruction, transition in the left lower quadrant. Increasing airspace disease in the right middle and left lower lobes with small left basilar consolidation. Findings suspicious for infection. Individualized dose optimization techniques were used for this CT. at 1603 Reported and signed by: Junaid Llanes MD Electronically Signed: Junaid Llanes MD at 16:02 EDT Tel , Service support , KUB X-Ray 11/22/20 17:50 IMPRESSION: Proximal position of the NG tube which should be advanced. at 1859 Reported and signed by: Junaid Llanes MD Electronically Signed: Junaid Llanes MD at 18:58 EDT Tel , Service support , Physical Exam Narrative General: Alert, Oriented x3, Cooperative HEENT: Atraumatic, PERRLA, EOMI, Normocephalic Oral: No Gingival or Mucosal Lesions/ Ulcerations Neck: Supple, No JVD, Negative Carotid Bruits Lungs: Air entry diminished in bilateral lung bases. Bilateral expiratory rhonchi and wheezing. Cardiovascular: Sinus rhythm, Normal S1, Normal S2, No murmurs Abdomen: Ileostomy show fecal matter, 175 mL. NG tube bilious aspirate, 50 mL. Bowel Sounds Present, soft, tenderness present over left lower quadrant. : No renal angle tenderness. No suprapubic tenderness. Extremities: Mild to moderate bilateral lower leg edema, Capillary Refill Less than 3 Seconds Skin: No rashes, No breakdown Musculoskeletal: No Tenderness to Palpation of Joints or Extremities Neurological: Cranial nerves II-XII grossly intact, DTR 2+/4 and Symmetrical, Neuro grossly intact Psych/Mental Status: Normal Affect, Appropriate. Assessment & Plan Assessment/Plan (1) Small bowel obstruction: PLAN: The patient is a 79 year old F admitted 02/25/2020 due to shortness of breath. 1. Acute small bowel obstruction with history of complicated internal hernia status post subtotal colectomy with ileostomy: Patient is being admitted Medr floor. NPO. IV fluid normal saline. Surgeon Dr. Putnam is being consulted. Patient had last admission in February 2020 for similar condition acute abdominal pain due to complicated hernia/ileus and resolved spontaneously. Mild leukocytosis. Hold oral home medications. Mild hyperkalemia, EKG ordered. Serum magnesium normal 11/23: Patient had hypoglycemia episode which managed with IV 50% dextrose resolved. IV fluid changed to D5 half NS. Discussed with the nursing staff. No appreciable bowel sounds but patient had good ileostomy output with fecal matter. Continue NG suction at medium pressure. Maintain n.p.o. Surgical consult reviewed and appreciated. Multiple surgeries in the past including pauline atric surgery 2003, subtotal colectomy and end ileostomy August 2018 for obstruction and then ventral hernia repair with right and left myofascial flap in August 2020. Patient was told that she is not good for any further surgery 2. Recent Covid 19 pneumonia about 2 weeks ago with chronic hypoxic respiratory insufficiency secondary to chronic heart failure with preserved ejection fraction and COPD: Patient recent echo EF 65%, mild to moderate mitral valve insufficiency. Currently on IV fluid with titration based on intake and output, with caution to watch for fluid overload. Patient completed Decadron. Advised incentive spirometry. 3. chronic normocytic anemia-patient had EGD in February 2020 shows no obvious signs of ulceration at the anastomosis or bleeding. Continue PPI IV empiric ally. Current hemoglobin 12.8. 4. CAD with history of recent stent 12/02/2019-continue Plavix, statin, metoprolol. 5. COPD-continue patient's home inhalers. Oxygen therapy to keep pulse ox 90%. Incentive spirometry. 6. JESSICA: Patient follows in pulmonary clinic but noncompliant. 7. Type 2 diabetes [id number] AC at bedtime coverage Humalog sliding scale 8. Restless leg syndrome: 9. Chronic smoker with nicotine dependence: Encouraged cessation. On nicotine patch. Living will/advanced directive/end of life care: Patient does have living will or advanced directive. After discussion of benefits/risks procedures involved with full code, DNR CC arrest and DNR CC, the patient and her opted for DNR-CC Arrest with no intubation Patient does not want artificial life support including intubation, tube feed, ventilator and/chest compression, central venous catheter, vasopressor and DC shock if needed Total time spent in [id number] encounter in discussion of advanced directive 16 minutes. Clinical Impression(s) from Imaging Studies Abdomen/Pelvis CT 11/22/20 13:36 IMPRESSION: Findings consistent with small bowel obstruction, transition in the left lower quadrant. Increasing airspace disease in the right middle and left lower lobes with small left basilar consolidation. Findings suspicious for infection. Individualized dose optimization techniques were used for this CT. Charges/Coding Visit Charges Inpatient E&M: 00223 Subs Hosp L2
[2020-11-23 12:46] LABS: Bedside Glucose 48 mg/dL (70-110)
[2020-11-23 13:02] LABS: Bedside Glucose 106 mg/dL (70-110)
[2020-11-23 16:11] LABS: Bedside Glucose 84 mg/dL (70-110)
--- NOTE | 2020-11-23 16:42 | PN.SURG_ITS ---
Subjective Subjective patient feels much improved and there is output per ostomy now complaint of musculoskeletal pain due to immobility Objective Data Objective Data Vital Signs: Vital Signs Temp Pulse Resp BP Pulse Ox 98.4 F 93 18 115/57 L 93 11/23/20 15:55 11/23/20 15:55 11/23/20 15:55 11/23/20 15:55 11/23/20 15:55 Oxygen Flow Rate (L/min) 4 Oxygen Delivery Method Nasal Cannula Weight: 95.6 kg Body Mass Index (BMI) 38.2 Intake & Output: Intake and Output for Last 24 Hours 11/21/20 11/22/20 11/23/20 23:59 23:59 23:59 Intake Total 1111 / 1111 953 / 953 Output Total 825 / 825 Balance 1111 / 761 128 / 128 Lab / Micro Data Result Diagrams: 11/23/20 08:30 11/23/20 06:35 Labs: Laboratory Results - last 24 hr 11/22/20 14:15: Magnesium 1.8 11/22/20 16:24: Procalcitonin 0.09 11/23/20 00:39: POC Glucose 77 11/23/20 06:15: POC Glucose 56 L 11/23/20 06:35: WBC Cancelled, Corrected WBC Cancelled, RBC Cancelled, Hgb Cancelled, Hct Cancelled, MCV Cancelled, MCH Cancelled, MCHC Cancelled, RDW Std Deviation Cancelled, RDW Coeff of Abiola Cancelled, Plt Count Cancelled, MPV Cancelled, Immature Gran % (Auto) Cancelled, Neut % (Auto) Cancelled, Lymph % (Auto) Cancelled, [place] % (Auto) Cancelled, Eos % (Auto) Cancelled, Baso % (Auto) Cancelled, Absolute Neuts (auto) Cancelled, Absolute Lymphs (auto) Cancelled, Total Counted Cancelled, Neutrophils % (Manual) Cancelled, Band Neutrophils % Cancelled, Lymphocytes % (Manual) Cancelled, Monocytes % (Manual) Cancelled, Eosinophils % (Manual) Cancelled, Basophils % (Manual) Cancelled, Metamyelocytes % Cancelled, Myelocytes % Cancelled, Promyelocytes % Cancelled, Blast Cells % Cancelled, Plasma Cell % (Manual) Cancelled, Other Cells % Cancelled, Nucleated RBC % Cancelled, Nucleated RBCs/100 WBC Cancelled, Differential Comment Cancelled, Diff Path Review Cancelled, Hypersegmented Neuts Cancelled, Atypical Lymphocytes Cancelled, Reactive Lymphocytes Cancelled, Smudge Cells Cancelled, Toxic Granulation Cancelled, Toxic Vacuolation Cancelled, Dohle Bodies Cancelled, Radha Rods Cancelled, Platelet Estimate Cancelled, Plt Morphology Comment Cancelled, RBC Morphology Cancelled, Polychromasia Cancelled, Hypochromasia Cancelled, Poikilocytosis Cancelled, Basophilic Stippling Cancelled, Anisocytosis Cancelled, Microcytosis Cancelled, Macrocytosis Cancelled, Spherocytes Cancelled, Sickle Cells Cancelled, Target Cells Cancelled, Tear Drop Cells Cancelled, Ovalocytes Cancelled, Stomatocytes Cancelled, Neely-Hilda Bodies Cancelled, Sharif Cells Cancelled, Bite Cells Cancelled, Crenated Cell Cancelled, Acanthocytes (Spur) Cancelled, Rouleaux Canc elled, Schistocytes Cancelled 11/23/20 06:35: Sodium 139, Potassium 5.5 H, Chloride 114 H, Carbon Dioxide 21.0, Anion Gap 4 L, BUN 22 H, Creatinine 1.14 H, Estim Creat Clear Calc 31.65, Est GFR (MDRD) Af Amer 59 L, Est GFR (MDRD) Non-Af 49 L, BUN/Creatinine Ratio 19.3, Glucose 61 L, Calcium 7.9 L, Phosphorus 3.8 11/23/20 06:59: POC Glucose 109 11/23/20 08:30: WBC 10.5, RBC 4.36, Hgb 12.9, Hct 40.4, MCV 92.7, MCH 29.6, MCHC 31.9 L, RDW Std Deviation 49.6 H, RDW Coeff of Abiola 14.6, Plt Count 212, MPV 9.8, Immature Gran % (Auto) 1.900 H, Neut % (Auto) 73.9 H, Lymph % (Auto) 15.6 L, [place] % (Auto) 6.1, Eos % (Auto) 2.2, Baso % (Auto) 0.3, Absolute Neuts (auto) 7.8 H, Absolute Lymphs (auto) 1.63, Nucleated RBC % 0, Differential Comment SCANNED 11/23/20 11:49: POC Glucose 48 L 11/23/20 12:03: POC Glucose 106 11/23/20 16:01: POC Glucose 84 Radiography Diagnostic Testing: Radiology Impression KUB X-Ray 11/22/20 17:50 IMPRESSION: Proximal position of the NG tube which should be advanced. at 1859 Reported and signed by: Junaid Llanes MD Electronically Signed: Junaid Llanes MD at 18:58 EDT Tel , Service support , Physical Exam Const alert and oriented x3 General Appearance: cooperative Resp normal respiratory effort GI Palpation: soft Assessment & Plan Assessment/Plan (1) Small bowel obstruction: PLAN: Clamp NG tube encourage ambulation If still continues to improve, consider clear liquid diet in morning (no carbonated beverages) and d/c NG tube
[2020-11-23 22:25] LABS: Bedside Glucose 84 mg/dL (70-110)
[2020-11-24] VITALS (29 sets, daily range): BP systolic 86–149; BP diastolic 50–75; PULSE 65–102; RESP 16–20; TEMP 36.2–37.1; O2SAT 90–97
[2020-11-24] MEDS: Ondansetron 4 MG/2 ML Vial IV (03:19)
[2020-11-24] MEDS: 0.9% Saline Lock 10 ML Syringe IV (03:20)
[2020-11-24] MEDS: HYDROcodone Bitartrate/Apap 5/325 Tablet PO (04:13)
[2020-11-24] MEDS: Dext 5%-0.45% NS 1,000 ML 60 ML IV (04:25)
[2020-11-24 06:06] LABS: Bedside Glucose 103 mg/dL (70-110)
--- NOTE | 2020-11-24 06:12 | PN.SURG_ITS ---
Subjective Subjective patient feels much improved, she feels that her bowel obstruction has resolved, complaint of back pain Objective Data Objective Data Vital Signs: Vital Signs Temp Pulse Resp BP Pulse Ox 98.0 F 97 20 H 103/61 91 11/24/20 03:18 11/24/20 03:18 11/24/20 03:18 11/24/20 03:18 11/24/20 04:32 Oxygen Flow Rate (L/min) 6 Oxygen Delivery Method Nasal Cannula Weight: 94.6 kg Body Mass Index (BMI) 38.2 Intake & Output: Intake and Output for Last 24 Hours 11/22/20 11/23/20 11/24/20 23:59 23:59 23:59 Intake Total 1111 / 1111 953 / 953 993 / 993 Output Total 825 / 825 Balance 1111 / 761 128 / 128 993 / 993 Lab / Micro Data Result Diagrams: 11/23/20 08:30 11/23/20 06:35 Labs: Laboratory Results - last 24 hr 11/23/20 06:15: POC Glucose 56 L 11/23/20 06:35: WBC Cancelled, Corrected WBC Cancelled, RBC Cancelled, Hgb Cancelled, Hct Cancelled, MCV Cancelled, MCH Cancelled, MCHC Cancelled, RDW Std Deviation Cancelled, RDW Coeff of Abiola Cancelled, Plt Count Cancelled, MPV Cancelled, Immature Gran % (Auto) Cancelled, Neut % (Auto) Cancelled, Lymph % (Auto) Cancelled, [place] % (Auto) Cancelled, Eos % (Auto) Cancelled, Baso % (Auto) Cancelled, Absolute Neuts (auto) Cancelled, Absolute Lymphs (auto) Cancelled, Total Counted Cancelled, Neutrophils % (Manual) Cancelled, Band Neutrophils % Cancelled, Lymphocytes % (Manual) Cancelled, Monocytes % (Manual) Cancelled, Eosinophils % (Manual) Cancelled, Basophils % (Manual) Cancelled, Metamyelocytes % Cancelled, Myelocytes % Cancelled, Promyelocytes % Cancelled, Blast Cells % Cancelled, Plasma Cell % (Manual) Cancelled, Other Cells % Cancelled, Nucleated RBC % Cancelled, Nucleated RBCs/100 WBC Cancelled, Differential Comment Cancelled, Diff Path Review Cancelled, Hypersegmented Neuts Cancelled, Atypical Lymphocytes Cancelled, Reactive Lymphocytes Cancelled, Smudge Cells Cancelled, Toxic Granulation Cancelled, Toxic Vacuolation Cancelled, Dohle Bodies Cancelled, Radha Rods Cancelled, Platelet Estimate Cancelled, Plt Morphology Comment Cancelled, RBC Morphology Cancelled, Polychromasia Cancelled, Hy pochromasia Cancelled, Poikilocytosis Cancelled, Basophilic Stippling Cancelled, Anisocytosis Cancelled, Microcytosis Cancelled, Macrocytosis Cancelled, Spherocytes Cancelled, Sickle Cells Cancelled, Target Cells Cancelled, Tear Drop Cells Cancelled, Ovalocytes Cancelled, Stomatocytes Cancelled, [place] Bodies Cancelled, Sharif Cells Cancelled, Bite Cells Cancelled, Crenated Cell Cancelled, Acanthocytes (Spur) Cancelled, Rouleaux Cancelled, Schistocytes Cancelled 11/23/20 06:35: Sodium 139, Potassium 5.5 H, Chloride 114 H, Carbon Dioxide 21.0, Anion Gap 4 L, BUN 22 H, Creatinine 1.14 H, Estim Creat Clear Calc 31.65, Est GFR (MDRD) Af Amer 59 L, Est GFR (MDRD) Non-Af 49 L, BUN/Creatinine Ratio 19.3, Glucose 61 L, Calcium 7.9 L, Phosphorus 3.8 11/23/20 06:59: POC Glucose 109 11/23/20 08:30: WBC 10.5, RBC 4.36, Hgb 12.9, Hct 40.4, MCV 92.7, MCH 29.6, MCHC 31.9 L, RDW Std Deviation 49.6 H, RDW Coeff of Abiola 14.6, Plt Count 212, MPV 9.8, Immature Gran % (Auto) 1.900 H, Neut % (Auto) 73.9 H, Lymph % (Auto) 15.6 L, [place] % (Auto) 6.1, Eos % (Auto) 2.2, Baso % (Auto) 0.3, Absolute Neuts (auto) 7.8 H, Absolute Lymphs (auto) 1.63, Nucleated RBC % 0, Differential Comment SCANNED 11/23/20 11:49: POC Glucose 48 L 11/23/20 12:03: POC Glucose 106 11/23/20 16:01: POC Glucose 84 11/23/20 22:12: POC Glucose 84 11/24/20 03:56: POC Glucose 103 Physical Exam Const alert and oriented x3 Resp normal respiratory effort GI GI Narrative: abdomen is soft and benign, output noted at stoma site Assessment & Plan Assessment/Plan (1) Small bowel obstruction: PLAN: seemingly has resolved d/c NG tube, start clear liquids if tolerates - d/c to home today
--- NOTE | 2020-11-24 06:28 | NURSING ---
NG tube pulled per order
[2020-11-24] MEDS: Ipratropium/Albuterol Sulfate 3 ML AMPUL.NEB INHALATION ×3 (07:06→19:01)
[2020-11-24] MEDS: Budesonide Respules 0.5 MG/2 ML AMPUL.NEB. INHALATION ×2 (07:06→19:01)
[2020-11-24] MEDS: Enoxaparin 30 MG/0.3 ML Syringe SC (08:19)
[2020-11-24 10:00] LABS: Absolute Lymphocyte Count 0.64 X10^3/uL (0.83-4.51); Absolute Neutrophil Count 19.4 X10^3/uL (2.0-7.7); Basophil# 0.03 X10^3/uL; Basophil% 0.1 % (0-1); Eosinophil# 0.03 X10^3/uL; Eosinophils% 0.1 % (0-5); Hematocrit 43.1 % (37-47); Hemoglobin 13.3 g/dL (12.0-15.0); Lymphocyte # 0.64 X10^3/ul (0.83-4.51); Lymphocyte % 3.1 % (19-41); Mean Corp Hgb Conc 30.9 g/dL (32-36); Mean Corpuscular Hgb 29.8 pg (27.0-32.0); Mean Corpuscular Volume 96.6 fL (81-99); Mean Platelet Vol. 8.9 fl (6.2-12.0); Monocyte# 0.59 X10^3/uL; Monocyte% 2.8 % (0-10); NRBC Flagged by Analyzer 0 % (0-5); Neutrophil # 19.39 X10^3/uL (2.7-7.7); Neutrophil % 92.7 % (47-70); Platelet Count 260 K/mm3 (150-450); RBC Distribution Width CV 14.3 % (11.6-14.6); RBC Distribution Width SD 50.7 fl (35.1-43.9); Red Blood Count 4.46 M/mm3 (4.2-5.4); White Blood Count 20.9 K/mm3 (4.4-11.0)
[2020-11-24 10:33] LABS: Anion Gap 8 (5-15); BUN 17 mg/dL (7-18); BUN/Creat Ratio 13.6 RATIO (10-20); Calcium,Total 8.4 mg/dL (8.5-10.1); Chloride 105 mmol/L (98-107); Creatinine, Serum 1.25 mg/dL (0.55-1.02); EST Glomerular Filtration Rate 44 mL/min (>60); Est Glom Filt Rate - Afr Amer 53 mL/min (>60); Estimated Creatinine Clearance 28.86 ml/min; Glucose 164 mg/dL (74-106); Potassium 4.9 mmol/L (3.5-5.1); Sodium Level 135 mmol/L (136-145)
[2020-11-24] MEDS: Clopidogrel Bisulfate 75 MG Tablet PO (10:38)
[2020-11-24] MEDS: Pantoprazole Sodium 40 MG Tablet PO (10:38)
[2020-11-24] MEDS: Citalopram 20 MG Tablet PO (10:39)
[2020-11-24] MEDS: Furosemide 40 MG Tablet PO (10:39)
[2020-11-24] MEDS: LORazepam 2 MG/ML Syringe 0.5 MG IV (10:39)
[2020-11-24] MEDS: Ranolazine 500 MG Tablet 1000 MG PO (10:42)
[2020-11-24] MEDS: Tolterodine Tartrate 2 MG CAP.SA PO (10:42)
[2020-11-24] MEDS: Metoprolol(XL)Succ 25 MG Tablet 12.5 MG PO (10:42)
[2020-11-24] MEDS: Midodrine HCl 5 MG Tablet 10 MG PO ×2 (10:45→16:35)
[2020-11-24] MEDS: Pramipexole Di-HCl 1 MG Tablet 1.5 MG PO (10:45)
--- NOTE | 2020-11-24 10:47 | DCINST_ITS ---
Discharge Instructions Diet Discharge Diet: Low fat / Low cholesterol and 2000 Calorie Control Diet Activity Discharge Activity: Return to Normal Activity and May Not Drive Weight Bearing Status: Weight bearing as tolerated Dressing / Incision Call your doctor if you observe: Fever of 101 or Higher, Coldness, Increased Pain, Numbness or Tingling, Change in Color, Inability to urinate, Inability to have a bowel movement, Shortness of breath, Dizziness, Fainting spells, Swelling in the ankles, Chest pain, Prolonged hiccupping, Increased palpitations (irregular heartbeat), Calf discomfort and Uncontrolled pain Follow Up Care Test Results: Test results from this visit will be discussed in further detail at your follow-up appointment, if applicable. Discharge Plan Admission Admit Date/Time: 11/22/20 17:18 Primary Reason for Your Visit: SBO Attending Provider: David Velazquez Primary Care Provider: Agnieszka Degroot [employer] Instructions Patient Instructions: ED Chest Pain, Noncardiac Additional Instructions / Restrictions: Self quarantine for 8 more days Discharge Orders/Prescriptions Prescriptions: New nicotine 21 mg/24 hr Patch 24 Hour 21 mg transdermal DAILY Qty: 30 RF: 0 Continued ranolazine 1,000 mg tablet extended release 12 hr 1,000 mg PO BID Qty: 60 RF: 11 nitroglycerin 0.4 mg tablet, sublingual 0.4 mg SUBLINGUAL Q5M PRN (Reason: Chest Pain) Qty: 25 RF: 3 oxybutynin chloride 10 mg tablet extended release 24hr 10 mg PO DAILY RF: 0 midodrine 5 mg tablet 2 tab PO Q8H RF: 0 beclomethasone dipropionate 80 mcg/actuation HFA aerosol breath activated 1 inh INHALATION BID RF: 0 omeprazole 40 mg capsule,delayed release(DR/EC) 40 mg PO DAILY RF: 0 citalopram 20 MG tablet 20 mg PO DAILY RF: 0 albuterol sulfate 1 PUFF inhaler 2 puff INHALATION Q6H PRN PRN (Reason: Sob &/Or Wheezing) RF: 0 montelukast 10 mg tablet 10 mg PO QHS RF: 0 atorvastatin 40 MG tablet 40 mg PO QHS RF: 0 hydroxyzine HCl 25 MG tablet 25 mg PO QHS RF: 0 clopidogrel 75 MG tablet 75 mg PO DAILY RF: 0 loperamide 2 MG capsule 2 mg PO Q4H PRN PRN (Reason: Diarrhea) RF: 0 ipratropium-albuterol 0.5 mg-3 mg(2.5 mg base)/3 mL Solution For Nebulization 3 ml INHALATION Q6H PRN (Reason: sob) RF: 0 formoterol fumarate 20 mcg/2 mL Solution For Nebulization 2 ml INHALATION Q12H RF: 0 fluticasone furoate 50 mcg/actuation Blister With Device 2 mcg INHALATION DAILY RF: 0 furosemide 40 MG tablet 40 mg PO DAILY Qty: 30 RF: 0 metoprolol succinate 25 mg tablet extended release 24 hr 12.5 mg PO DAILY RF: 0 Discontinued Pantoprazole Sodium 40 mg PO BID RF: 0 pramipexole [Mirapex] 1.5 mg Tablet 1.5 mg PO BID RF: 0 No Action pramipexole 1.5 MG tablet 1.5 mg PO TID PRN (Reason: RESTLESS LEGS) RF: 0 Referrals / Follow Up: Agnieszka Degroot NP, [employer] [Primary Care Provider] - Within 1 Week Carmita Putnam MD [STAFF PHYSICIAN] - Within 2 Weeks (for SBO) Disposition Disposition (needs filled in before D/C Order can be placed): Home, Self Care
--- NOTE | 2020-11-24 10:57 | PCM.DC.SUM ---
Providers Date of Admission: 11/22/20 Primary Care Physician: ELIO Etienne Reason For Visit: SBO Diagnosis Discharge Diagnosis (1) Small bowel obstruction: Status: Acute Code(s): K56.609 - Unspecified intestinal obstruction, unspecified as to partial versus complete obstruction Medications at Discharge Home Medications citalopram 20 mg PO DAILY 02/28/13 albuterol sulfate 2 puff INHALATION Q6H PRN PRN 07/15/14 atorvastatin 40 mg PO QHS 08/17/18 metoprolol succinate 25 mg tablet,extended release 24 hr 12.5 mg PO DAILY tab 12/06/19 midodrine 5 mg tablet 2 tab PO Q8H tab 01/25/20 oxybutynin chloride 10 mg tablet,extended release 24 hr 10 mg PO DAILY 01/25/20 clopidogrel 75 mg PO DAILY 02/25/20 hydroxyzine HCl 25 mg PO QHS 02/25/20 pramipexole 1.5 mg PO TID PRN 02/25/20 loperamide 2 mg PO Q4H PRN PRN 02/26/20 beclomethasone dipropionate 80 mcg/actuation HFA breath activated aerosol 1 inh INHALATION BID 03/11/20 montelukast 10 mg tablet 10 mg PO QHS 03/11/20 omeprazole 40 mg capsule,delayed release 40 mg PO DAILY 03/11/20 nitroglycerin 0.4 mg sublingual tablet 0.4 mg SUBLINGUAL Q5M PRN #25 tab 08/04/20 ranolazine 1,000 mg tablet,extended release,12 hr 1,000 mg PO BID #60 tab 08/04/20 fluticasone furoate 2 mcg INHALATION DAILY 11/10/20 formoterol fumarate 2 ml INHALATION Q12H 11/10/20 ipratropium-albuterol 3 ml INHALATION Q6H PRN 11/10/20 furosemide 40 mg PO DAILY #30 tab 11/24/20 nicotine 21 mg TRANSDERMAL DAILY #30 ea 11/24/20 Weight / BMI Weight Weight: 208 lb 8.917 oz Body Mass Index (BMI) 38.2 ABG / Lab / Microbiology Data Result Diagrams: 11/24/20 09:50 11/24/20 09:50 Laboratory: Laboratory Results - last 24 hr 11/23/20 11:49: POC Glucose 48 L 11/23/20 12:03: POC Glucose 106 11/23/20 16:01: POC Glucose 84 11/23/20 22:12: POC Glucose 84 11/24/20 03:56: POC Glucose 103 11/24/20 09:50: WBC 20.9 H, RBC 4.46, Hgb 13.3, Hct 43.1, MCV 96.6, MCH 29.8, MCHC 30.9 L, RDW Std Deviation 50.7 H, RDW Coeff of Abiola 14.3, Plt Count 260, MPV 8.9, Immature Gran % (Auto) 1.200 H, Neut % (Auto) 92.7 H, Lymph % (Auto) 3.1 L, [place] % (Auto) 2.8, Eos % (Auto) 0.1, Baso % (Auto) 0.1, Absolute Neuts (auto) 19.4 H, Absolute Lymphs (auto) 0.64 L, Nucleated RBC % 0 11/24/20 09:50: Sodium 135 L, Potassium 4.9, Chloride 105, Carbon Dioxide 22.0, Anion Gap 8, BUN 17, Creatinine 1.25 H, Estim Creat Clear Calc 28.86, Est GFR (MDRD) Af Amer 53 L, Est GFR (MDRD) Non-Af 44 L, BUN/Creatinine Ratio 13.6, Glucose 164 H, Calcium 8.4 L D/C Instructions Discharge Diet: Low fat / Low cholesterol and 2000 Calorie Control Diet Weight Bearing Status: Weight bearing as tolerated Call your doctor if you observe: Fever of 101 or Higher, Coldness, Increased Pain, Numbness or Tingling, Change in Color, Inability to urinate, Inability to have a bowel movement, Shortness of breath, Dizziness, Fainting spells, Swelling in the ankles, Chest pain, Prolonged hiccupping, Increased palpitations (irregular heartbeat), Calf discomfort and Uncontrolled pain Discharge Plan Admission Admit Date/Time: 11/22/20 17:18 Primary Reason for Your Visit: SBO Attending Provider: David Velazquez Primary Care Provider: Agnieszka Degroot NP Instructions Patient Instructions: ED Chest Pain, Noncardiac Additional Instructions / Restrictions: Self quarantine for 8 more days Discharge Orders/Prescriptions Prescriptions: New nicotine 21 mg/24 hr Patch 24 Hour 21 mg transdermal DAILY Qty: 30 RF: 0 Continued ranolazine 1,000 mg tablet extended release 12 hr 1,000 mg PO BID Qty: 60 RF: 11 nitroglycerin 0.4 mg tablet, sublingual 0.4 mg SUBLINGUAL Q5M PRN (Reason: Chest Pain) Qty: 25 RF: 3 oxybutynin chloride 10 mg tablet extended release 24hr 10 mg PO DAILY RF: 0 midodrine 5 mg tablet 2 tab PO Q8H RF: 0 beclomethasone dipropionate 80 mcg/actuation HFA aerosol breath activated 1 inh INHALATION BID RF: 0 omeprazole 40 mg capsule,delayed release(DR/EC) 40 mg PO DAILY RF: 0 citalopram 20 MG tablet 20 mg PO DAILY RF: 0 albuterol sulfate 1 PUFF inhaler 2 puff INHALATION Q6H PRN PRN (Reason: Sob &/Or Wheezing) RF: 0 montelukast 10 mg tablet 10 mg PO QHS RF: 0 atorvastatin 40 MG tablet 40 mg PO QHS RF: 0 hydroxyzine HCl 25 MG tablet 25 mg PO QHS RF: 0 clopidogrel 75 MG tablet 75 mg PO DAILY RF: 0 loperamide 2 MG capsule 2 mg PO Q4H PRN PRN (Reason: Diarrhea) RF: 0 ipratropium-albuterol 0.5 mg-3 mg(2.5 mg base)/3 mL Solution For Nebulization 3 ml INHALATION Q6H PRN (Reason: sob) RF: 0 formoterol fumarate 20 mcg/2 mL Solution For Nebulization 2 ml INHALATION Q12H RF: 0 fluticasone furoate 50 mcg/actuation Blister With Device 2 mcg INHALATION DAILY RF: 0 furosemide 40 MG tablet 40 mg PO DAILY Qty: 30 RF: 0 metoprolol succinate 25 mg tablet extended release 24 hr 12.5 mg PO DAILY RF: 0 Discontinued Pantoprazole Sodium 40 mg PO BID RF: 0 pramipexole [Mirapex] 1.5 mg Tablet 1.5 mg PO BID RF: 0 No Action pramipexole 1.5 MG tablet 1.5 mg PO TID PRN (Reason: RESTLESS LEGS) RF: 0 Referrals / Follow Up: Carmita Putnam MD [STAFF PHYSICIAN] - Within 2 Weeks (for SBO) Agnieszka Degroot NP, [employer] [Primary Care Provider] - Within 1 Week Disposition Disposition (needs filled in before D/C Order can be placed): Home, Self Care
--- NOTE | 2020-11-24 11:01 | NURSING ---
Pt is taken off non rebreather mask. She ate her clear liquid diet with no distress. She is sitting up in chair. Home meds given and instructed to text and not have extensive phone calls her oxygen status drops and she gets short of breath. Pt is now on 8 L NC and is resting in chair. Small amount of liquid green stefania in ostomy pouch.
[2020-11-24 11:56] LABS: Bedside Glucose 100 mg/dL (70-110)
--- NOTE | 2020-11-24 13:18 | CASEMGMT ---
SHANELLE LAGUNA Assessment: Face to Face with pt for initial transition planning/care coordination assessment. SHANELLE LAGUNA introduced self and role at [facility], pt voices understanding and consents to assessment. Pt is A/O x1, pt was too drowsy and was unable to answer the rest of the assessment questions. Pt did give permission to call her . Pt sitting up in chair with O2 on in no distress. Care providers, pharmacy, and demographics verified/updated. Admitting Dx: SBO and WINSOMEID PCP:Agnieszka Cabezas [facility]acy: [facility] Insurance: [facility] Prescription Benefit: yes SHANELLE LAGUNA to call pt for rest of assessment.
--- NOTE | 2020-11-24 14:51 | PN.HOSP_ITS ---
Subjective Subjective Patient bowel obstruction is almost resolved and having liquid stool in the ileostomy bag. But patient is on high FiO2. To 10 L of oxygen therefore cannot be discharged. Patient wants to go home. Patient was anxious and restless as her antidepressant/antianxiety medications were held due to bowel obstruction. Objective Data Objective Data Vital Signs: Vital Signs Temp Pulse Resp BP Pulse Ox 97.2 F L 81 16 94/50 L 94 11/24/20 13:30 11/24/20 13:30 11/24/20 13:30 11/24/20 13:30 11/24/20 13:30 Oxygen Flow Rate (L/min) 8 Oxygen Delivery Method Nasal Cannula Weight: 208 lb 8.917 oz Body Mass Index (BMI) 38.2 Intake & Output: Intake and Output for Last 24 Hours 11/22/20 11/23/20 11/24/20 23:59 23:59 23:59 Intake Total 1111 / 1111 953 / 953 1420 / 1420 Output Total 825 / 825 Balance 1111 / 761 128 / 128 1420 / 1420 Lab / Micro Data Result Diagrams: 11/24/20 09:50 11/24/20 09:50 Labs: Laboratory Results - last 24 hr 11/23/20 16:01: POC Glucose 84 11/23/20 22:12: POC Glucose 84 11/24/20 03:56: POC Glucose 103 11/24/20 09:50: WBC 20.9 H, RBC 4.46, Hgb 13.3, Hct 43.1, MCV 96.6, MCH 29.8, MCHC 30.9 L, RDW Std Deviation 50.7 H, RDW Coeff of Abiola 14.3, Plt Count 260, MPV 8.9, Immature Gran % (Auto) 1.200 H, Neut % (Auto) 92.7 H, Lymph % (Auto) 3.1 L, [place] % (Auto) 2.8, Eos % (Auto) 0.1, Baso % (Auto) 0.1, Absolute Neuts (auto) 19.4 H, Absolute Lymphs (auto) 0.64 L, Nucleated RBC % 0 11/24/20 09:50: Sodium 135 L, Potassium 4.9, Chloride 105, Carbon Dioxide 22.0, Anion Gap 8, BUN 17, Creatinine 1.25 H, Estim Creat Clear Calc 28.86, Est GFR (MDRD) Af Amer 53 L, Est GFR (MDRD) Non-Af 44 L, BUN/Creatinine Ratio 13.6, Glucose 164 H, Calcium 8.4 L 11/24/20 11:47: POC Glucose 100 Physical Exam Narrative General: Alert, Oriented x3, Cooperative HEENT: Atraumatic, PERRLA, EOMI, Normocephalic Oral: No Gingival or Mucosal Lesions/ Ulcerations Neck: Supple, No JVD, Negative Carotid Bruits Lungs: Air entry diminished in bilateral lung bases. Bilateral expiratory rhonchi and wheezing. Hypoxic Cardiovascular: Sinus rhythm, Normal S1, Normal S2, No murmurs Abdomen: Ileostomy show fecal matter, 175 mL. On clear liquid advance to soft diet. Bowel Sounds Present, soft, no tenderness or distention. Extremities: Mild bilateral lower leg edema, Capillary Refill Less than 3 Seconds Skin: No rashes, No breakdown Musculoskeletal: No Tenderness to Palpation of Joints or Extremities Neurological: Cranial nerves II-XII grossly intact, DTR 2+/4 and Symmetrical, Neuro grossly intact Psych/Mental Status: Anxious and restless in the morning Assessment & Plan Assessment/Plan (1) Small bowel obstruction: PLAN: The patient is a 79 year old F admitted 02/25/2020 due to shortness of breath. 1. 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 NPO. IV fluid normal saline. Surgeon Dr. Putnam is being consulted. Patient had last admission in February 2020 for similar condition acute abdominal pain due to complicated hernia/ileus and resolved spontaneously. Mild leukocytosis. Hold oral home medications. Mild hyperkalemia, EKG ordered. Se rum magnesium normal 11/23: Patient had hypoglycemia episode which managed with IV 50% dextrose reso lved. IV fluid changed to D5 half NS. Discussed with the nursing staff. No appreciable bowel sounds but patient had good ileostomy output with fecal matter. Continue NG suction at medium pressure. Maintain n.p.o. Surgical consult reviewed and appreciated. Multiple surgeries in the past including bariatric surgery 2003, subtotal colectomy and end ileostomy August 2018 for obstruction and then ventral hernia repair with right and left myofascial flap in August 2020. Patient was told that she is not good for any further surgery 11/24: Discontinue IV fluid. On soft diet. Advised soft mechanical diet for 5 more days. 2. Recent Covid 19 pneumonia about 2 weeks ago with chronic hypoxic respiratory insufficiency secondary to chronic heart failure with preserved ejection fraction and COPD: Patient recent echo EF 65%, mild to moderate mitral valve insufficiency. Currently on IV fluid with titration based on intake and output, with caution to watch for fluid overload. Patient completed Decadron. Advised incentive spirometry. 11/24: Patient requiring high oxygen, wheezing, most likely COPD exacerbation from recent COVID-19 pneumonia. Discussed with ID and he agreed with repeating steroid for 10 more days. I will start with Solu-Medrol and changed to Decadron at time of discharge.continue PPI twice daily. 3. chronic normocytic anemia-patient had EGD in February 2020 shows no obvious signs of ulceration at the anastomosis or bleeding. Continue PPI IV empirically. Current hemoglobin 12.8. 4. CAD with history of recent stent 12/02/2019-continue Plavix, statin, metoprolol. 5. COPD-continue patient's home inhalers. Oxygen therapy to keep pulse ox 90%. Incentive spirometry. 6. JESSICA: Patient follows in pulmonary clinic but noncompliant. 7. Type 2 diabetes [id number] AC at bedtime coverage Humalog sliding scale 8. Restless leg syndrome: 9. Chronic smoker with nicotine dependence: Encouraged cessation. On nicotine patch. Living will/advanced directive/end of life care: Patient does have living will or advanced directive. After discussion of benefits/risks procedures involved with full code, DNR CC arrest and DNR CC, the patient and her opted for DNR-CC Arrest with no intubation Patient does not want artificial life support including intubation, tube feed, ventilator and/chest compression, central venous catheter, vasopressor and DC shock if needed Total time spent in [id number] encounter in discussion of advanced directive 16 minutes. Clinical Impression(s) from Imaging Studies Abdomen/Pelvis CT 11/22/20 13:36 IMPRESSION: Findings consistent with small bowel obstruction, transition in the left lower quadrant. Increasing airspace disease in the right middle and left lower lobes with small left basilar consolidation. Findings suspicious for infection. Individualized dose optimization techniques were used for this CT. Charges/Coding Visit Charges Inpatient E&M: 19068 Subs Hosp L3
--- NOTE | 2020-11-24 17:56 | EKG12_ITS ---
Test Reason : AFIB Blood Pressure : / mmHG Vent. Rate : 073 BPM Atrial Rate : 082 BPM P-R Int : 000 ms QRS Dur : 080 ms QT Int : 378 ms P-R-T Axes : 000 036 097 degrees QTc Int : 416 ms Sinus rhythm with A-V dissociation and Accelerated Junctional rhythm Abnormal ECG When compared with ECG of 22-NOV-2020 17:55, Junctional rhythm has replaced Sinus rhythm Confirmed by SANDI LEI, WILBERTO ([id number]), editor magazine ANDIE GARY ([id number]) on 11/27/2020 10:45:38 AM Referred By: HENRIQUE Confirmed By:WILBERTO JUNIOR MD
[2020-11-25] VITALS (19 sets, daily range): BP systolic 95–135; BP diastolic 52–74; PULSE 46–89; RESP 18–21; TEMP 36.2–37.1; O2SAT 91–96
[2020-11-25] MEDS: Atorvastatin Calcium 40 MG Tablet PO (00:13)
[2020-11-25] MEDS: Pramipexole Di-HCl 1 MG Tablet 1.5 MG PO ×3 (00:16→08:40)
[2020-11-25] MEDS: Ranolazine 500 MG Tablet 1000 MG PO ×2 (00:16→08:37)
[2020-11-25] MEDS: Pantoprazole Sodium 40 MG Tablet PO ×2 (00:17→08:38)
[2020-11-25] MEDS: hydrOXYzine PAM 25 MG Capsule PO (00:17)
[2020-11-25] MEDS: Montelukast 10 MG Tablet PO (00:17)
[2020-11-25] MEDS: Midodrine HCl 5 MG Tablet 10 MG PO ×2 (00:18→08:46)
[2020-11-25 00:35] LABS: Bedside Glucose 153 mg/dL (70-110)
[2020-11-25 02:26] LABS: Bedside Glucose 145 mg/dL (70-110)
[2020-11-25] MEDS: 0.9% Saline Lock 10 ML Syringe IV ×3 (06:36→13:08)
[2020-11-25 07:01] LABS: Bedside Glucose 128 mg/dL (70-110)
[2020-11-25] MEDS: Ipratropium/Albuterol Sulfate 3 ML AMPUL.NEB INHALATION ×2 (07:24→12:45)
[2020-11-25] MEDS: Budesonide Respules 0.5 MG/2 ML AMPUL.NEB. INHALATION (07:24)
[2020-11-25 08:04] LABS: Anion Gap 6 (5-15); BUN 28 mg/dL (7-18); Calcium,Total 8.8 mg/dL (8.5-10.1); Chloride 102 mmol/L (98-107); Creatinine, Serum 1.75 mg/dL (0.55-1.02); EST Glomerular Filtration Rate 30 mL/min (>60); Est Glom Filt Rate - Afr Amer 36 mL/min (>60); Estimated Creatinine Clearance 20.62 ml/min; Glucose 118 mg/dL (74-106); Magnesium 1.8 mg/dL (1.6-2.6); Potassium 5.4 mmol/L (3.5-5.1); Sodium Level 133 mmol/L (136-145)
[2020-11-25] MEDS: Enoxaparin 30 MG/0.3 ML Syringe SC (08:37)
[2020-11-25] MEDS: Tolterodine Tartrate 2 MG CAP.SA PO (08:38)
[2020-11-25] MEDS: Citalopram 20 MG Tablet PO (08:38)
[2020-11-25] MEDS: Clopidogrel Bisulfate 75 MG Tablet PO (08:38)
--- NOTE | 2020-11-25 09:30 | PCM.DC ---
Discharge Instructions Diet Discharge Diet: Low fat / Low cholesterol and 1800 Calorie Control Diet Activity Weight Bearing Status: Weight bearing as tolerated Dressing / Incision Call your doctor if you observe: Fever of 101 or Higher, Coldness, Increased Pain, Numbness or Tingling, Change in Color, Inability to urinate, Inability to have a bowel movement, Shortness of breath, Dizziness, Fainting spells, Swelling in the ankles, Chest pain, Prolonged hiccupping, Increased palpitations (irregular heartbeat), Calf discomfort and Uncontrolled pain Follow Up Care Test Results: Test results from this visit will be discussed in further detail at your follow-up appointment, if applicable. Discharge Plan Admission Admit Date/Time: 11/22/20 17:18 Primary Reason for Your Visit: SBO Attending Provider: David Velazquez Primary Care Provider: Agnieszka Degroot [employer] Instructions Patient Instructions: ED Chest Pain, Noncardiac Additional Instructions / Restrictions: Self quarantine for 8 more days Discharge Orders/Prescriptions Prescriptions: New nicotine 21 mg/24 hr Patch 24 Hour 21 mg transdermal DAILY Qty: 30 RF: 0 prednisone 10 mg tablet 10 mg PO DAILY Qty: 30 RF: 0 Continued ranolazine 1,000 mg tablet extended release 12 hr 1,000 mg PO BID Qty: 60 RF: 11 nitroglycerin 0.4 mg tablet, sublingual 0.4 mg SUBLINGUAL Q5M PRN (Reason: Chest Pain) Qty: 25 RF: 3 oxybutynin chloride 10 mg tablet extended release 24hr 10 mg PO DAILY RF: 0 midodrine 5 mg tablet 2 tab PO Q8H RF: 0 beclomethasone dipropionate 80 mcg/actuation HFA aerosol breath activated 1 inh INHALATION BID RF: 0 omeprazole 40 mg capsule,delayed release(DR/EC) 40 mg PO DAILY RF: 0 citalopram 20 MG tablet 20 mg PO DAILY RF: 0 albuterol sulfate 1 PUFF inhaler 2 puff INHALATION Q6H PRN PRN (Reason: Sob &/Or Wheezing) RF: 0 montelukast 10 mg tablet 10 mg PO QHS RF: 0 atorvastatin 40 MG tablet 40 mg PO QHS RF: 0 hydroxyzine HCl 25 MG tablet 25 mg PO QHS RF: 0 clopidogrel 75 MG tablet 75 mg PO DAILY RF: 0 loperamide 2 MG capsule 2 mg PO Q4H PRN PRN (Reason: Diarrhea) RF: 0 ipratropium-albuterol 0.5 mg-3 mg(2.5 mg base)/3 mL Solution For Nebulization 3 ml INHALATION Q6H PRN (Reason: sob) RF: 0 formoterol fumarate 20 mcg/2 mL Solution For Nebulization 2 ml INHALATION Q12H RF: 0 fluticasone furoate 50 mcg/actuation Blister With Device 2 mcg INHALATION DAILY RF: 0 furosemide 40 MG tablet 40 mg PO DAILY Qty: 30 RF: 0 metoprolol succinate 25 mg tablet extended release 24 hr 12.5 mg PO DAILY RF: 0 Discontinued Pantoprazole Sodium 40 mg PO BID RF: 0 pramipexole [Mirapex] 1.5 mg Tablet 1.5 mg PO BID RF: 0 No Action pramipexole 1.5 MG tablet 1.5 mg PO TID PRN (Reason: RESTLESS LEGS) RF: 0 Referrals / Follow Up: Carmita Putnam MD [STAFF PHYSICIAN] - Within 2 Weeks (for SBO) Agnieszka Degroot NP, [employer] [Primary Care Provider] - Within 1 Week Disposition Disposition (needs filled in before D/C Order can be placed): Home, Self Care
--- NOTE | 2020-11-25 11:46 | PN.HOSP_ITS ---
Subjective Subjective Patient on 5 L of oxygen. On clear liquid. Diet advanced to soft oral diet. Creatinine went up. Lasix is discontinued blood pressure on lower side. Objective Data Objective Data Vital Signs: Vital Signs Temp Pulse Resp BP Pulse Ox 98.7 F 58 L 18 108/54 L 92 11/25/20 08:23 11/25/20 08:40 11/25/20 08:23 11/25/20 08:40 11/25/20 08:23 Oxygen Flow Rate (L/min) 5 Oxygen Delivery Method Nasal Cannula Weight: 208 lb 8.917 oz Body Mass Index (BMI) 38.2 Intake & Output: Intake and Output for Last 24 Hours 11/23/20 11/24/20 11/25/20 23:59 23:59 23:59 Intake Total 953 / 953 1420 / 1420 Output Total 825 / 825 Balance 128 / 128 1420 / 1420 Lab / Micro Data Result Diagrams: 11/24/20 09:50 11/25/20 06:45 Labs: Laboratory Results - last 24 hr 11/24/20 11:47: POC Glucose 100 11/24/20 16:23: POC Glucose 153 H 11/25/20 00:54: POC Glucose 145 H 11/25/20 06:33: POC Glucose 128 H 11/25/20 06:45: Sodium 133 L, Potassium 5.4 H, Chloride 102, Carbon Dioxide 25.0, Anion Gap 6, BUN 28 H, Creatinine 1.75 H, Estim Creat Clear Calc 20.62, Est GFR (MDRD) Af Amer 36 L, Est GFR (MDRD) Non-Af 30 L, BUN/Creatinine Ratio 16.0, Glucose 118 H, Calcium 8.8, Magnesium 1.8 Physical Exam Narrative General: Alert, Oriented x3, Cooperative HEENT: Atraumatic, PERRLA, EOMI, Normocephalic Oral: No Gingival or Mucosal Lesions/ Ulcerations Neck: Supple, No JVD, Negative Carotid Bruits Lungs: Air entry diminished in bilateral lung bases. Bilateral expiratory rhonchi and wheezing. Hypoxic on 5 L of oxygen Cardiovascular: Sinus rhythm, Normal S1, Normal S2, No murmurs Abdomen: Ileostomy show fecal matter, liquid stool. Bowel Sounds Present, soft, no tenderness or distention. Extremities: Mild bilateral lower leg edema, Capillary Refill Less than 3 Seconds Skin: No rashes, No breakdown Musculoskeletal: No Tenderness to Palpation of Joints or Extremities Neurological: Cranial nerves II-XII grossly intact, DTR 2+/4 and Symmetrical, Neuro grossly intact Psych/Mental Status: Appropriate affect Assessment & Plan Assessment/Plan (1) Small bowel obstruction: PLAN: The patient is a 79 year old F admitted 02/25/2020 due to shortness of breath. 1. 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 NPO. IV fluid normal saline. Surgeon Dr. Putnam is being consulted. Patient had last admission in February 2020 for similar condition acute abdominal pain due to complicated hernia/ileus and resolved spontaneously. Mild leukocytosis. Hold oral home medications. Mild hyperkalemia, EKG ordered. Serum magnesium normal 11/23: Patient had hypoglycemia episode which managed with IV 50% dextrose resolved. IV fluid changed to D5 half NS. Discussed with the nursing staff. No appreciable bowel sounds but patient had good ileostomy output with fecal matter. Continue NG suction at medium pressure. Maintain n.p.o. Surgical consult reviewed and appreciated. Multiple surgeries in the past including bariatric surgery 2003, subtotal colectomy and end ileostomy August 2018 for obstruction and then ventral hernia repair with right and left myofascial flap in August 2020. Patient was told that she is not good for any further surgery 11/24: Discontinue IV fluid. On soft diet. Advised soft mechanical diet for 5 more days. 11/25: Creatinine went up to 1.75 from 1.25. Blood pressure on lower side. IV fluid normal saline 500 mL bolus. Lasix discontinued and she did not get today. 2. Recent Covid 19 pneumonia about 2 weeks ago with chronic hypoxic respiratory insufficiency secondary to chronic heart failure with preserved ejection fraction and COPD: Patient recent echo EF 65%, mild to moderate mitral valve insufficiency. Currently on IV fluid with titration based on intake and output, with caution to watch for fluid overload. Patient completed Decadron. Advised incentive spirometry. 11/24: Patient requiring high oxygen, wheezing, most likely COPD exacerbation fr om recent COVID-19 pneumonia. Discussed with ID and he agreed with repeating steroid for 10 more days. I will start with Solu-Medrol and changed to Decadron at time of discharge.continue PPI twice daily. 11/25: Continue Solu-Medrol at time of discharge will change to Decadron. On 5 L of oxygen. Patient wants to go home but will wait until blood pressure and oxygen gets better. 3. chronic normocytic anemia-patient had EGD in February 2020 shows no obvious signs of ulceration at the anastomosis or bleeding. Continue PPI IV empirically. Current hemoglobin 12.8. 4. CAD with history of recent stent 12/02/2019-continue Plavix, statin, metoprolol. 5. COPD-continue patient's home inhalers. Oxygen therapy to keep pulse ox 90%. Incentive spirometry. 6. JESSICA: Patient follows in pulmonary clinic but noncompliant. 7. Type 2 diabetes drowsqqe-Wfkz-Nwdij AC at bedtime coverage Humalog sliding scale 8. Restless leg syndrome: 9. Chronic smoker with nicotine dependence: Encouraged cessation. On nicotine patch. Living will/advanced directive/end of life care: Patient does have living will or advanced directive. After discussion of benefits/risks procedures involved with full code, DNR CC arrest and DNR CC, the patient and her opted for DNR-CC Arrest with no intubation Patient does not want artificial life support including intubation, tube feed, ventilator and/chest compression, central venous catheter, vasopressor and DC shock if needed Total time spent in [id number] encounter in discussion of advanced directive 16 minutes. Clinical Impression(s) from Imaging Studies Abdomen/Pelvis CT 11/22/20 13:36 IMPRESSION: Findings consistent with small bowel obstruction, transition in the left lower quadrant. Increasing airspace disease in the right middle and left lower lobes with small left basilar consolidation. Findings suspicious for infection. Individualized dose optimization techniques were used for this CT. Charges/Coding Visit Charges Inpatient E&M: 28390 Subs Hosp L2
[2020-11-25 12:01] LABS: Bedside Glucose 108 mg/dL (70-110)
--- NOTE | 2020-11-25 12:04 | PCM.PN.SRG ---
Subjective Subjective Patient denies abdominal pain, feels hungry Air and stool in stoma bag Objective Data Objective Data Vital Signs: Vital Signs Temp Pulse Resp BP Pulse Ox 98.7 F 58 L 18 108/54 L 92 11/25/20 08:23 11/25/20 08:40 11/25/20 08:23 11/25/20 08:40 11/25/20 08:23 Oxygen Flow Rate (L/min) 5 Oxygen Delivery Method Nasal Cannula Weight: 94.6 kg Body Mass Index (BMI) 38.2 Intake & Output: Intake and Output for Last 24 Hours 11/23/20 11/24/20 11/25/20 23:59 23:59 23:59 Intake Total 953 / 953 1420 / 1420 Output Total 825 / 825 Balance 128 / 128 1420 / 1420 Lab / Micro Data Result Diagrams: 11/24/20 09:50 11/25/20 06:45 Labs: Laboratory Results - last 24 hr 11/24/20 16:23: POC Glucose 153 H 11/25/20 00:54: POC Glucose 145 H 11/25/20 06:33: POC Glucose 128 H 11/25/20 06:45: Sodium 133 L, Potassium 5.4 H, Chloride 102, Carbon Dioxide 25.0, Anion Gap 6, BUN 28 H, Creatinine 1.75 H, Estim Creat Clear Calc 20.62, Est GFR (MDRD) Af Amer 36 L, Est GFR (MDRD) Non-Af 30 L, BUN/Creatinine Ratio 16.0, Glucose 118 H, Calcium 8.8, Magnesium 1.8 11/25/20 11:27: POC Glucose 108 Physical Exam Const alert and oriented x3 Resp normal respiratory effort GI GI Narrative: abdomen is soft and nontender, air and stool in stoma bag Assessment & Plan Assessment/Plan (1) Small bowel obstruction: PLAN: partial SBO has resolved patient tolerating diet, can advance as tolerated OK to discharge to home
--- NOTE | 2020-11-25 14:11 | CASEMGMT ---
Addendum entered by Katrina Gilliam 11/25/20 14:21: N CM called [employer], spoke with Breanne who confirms pt O2 order is 2-3 L NC continuous. Pt is able to adjust between the range at her discretion. Original Note: SHANELLE LAGUNA Assessment: TC to pt to finish assessment. He is agreeable to complete assessment over the phone. Specialists:Noris, cardio Insurance: MMO MCR Prescription Benefit: yes LW/HPOA: Pt has LW/ DPOA on file. Her DPOA is her Geovanny Mathias. LNOK: Geovanny Mathias, ; Missy Goss, dtr Living Arrangements: Pt lives in an efficiency apartment with her off of their daughter and son in law's home. It is on ground level with no steps to enter. Geovanny reports pt was I in ADL's. Transportation: Pt drove self. There are no concerns with transportation. DME/HHC/SNF: Pt has O2 concentrator through [employer]. thinks she uses 3L cont. Pt has a nebulizer, portable O2 tanks, cane, walker, BSC and grab bars in the shower. Pt uses the cane most often. Pt has a hx of [facility] HHC and no SNF stays. Pt has an ileostomy and supplies are through [employer]. Pt states pt was first tested at [facility]. He states he has had covid prior and she is able to quarantine. Family is able to provide groceries and supplies. Pt states no concerns with pt going home at time of dc. Pt dtr also got on the phone and states pt is very strong willed. Denies need for any HHC. Pt states no further concerns/needs. CM to follow. Advised pt to ask CM if any further question/concerns/needs arise, voices understanding. Pt Goal: Home Plan: Home
--- NOTE | 2020-11-25 14:49 | DS.PCM_ITS ---
Providers Date of Admission: 11/22/20 Primary Care Physician: ELIO Etienne Reason For Visit: SBO Diagnosis Discharge Diagnosis (1) Small bowel obstruction: Status: Acute Code(s): K56.609 - Unspecified intestinal obstruction, unspecified as to partial versus complete obstruction Medications at Discharge Home Medications citalopram 20 mg PO DAILY 02/28/13 albuterol sulfate 2 puff INHALATION Q6H PRN PRN 07/15/14 atorvastatin 40 mg PO QHS 08/17/18 metoprolol succinate 25 mg tablet,extended release 24 hr 12.5 mg PO DAILY tab 12/06/19 midodrine 5 mg tablet 2 tab PO Q8H tab 01/25/20 oxybutynin chloride 10 mg tablet,extended release 24 hr 10 mg PO DAILY 01/25/20 clopidogrel 75 mg PO DAILY 02/25/20 hydroxyzine HCl 25 mg PO QHS 02/25/20 pramipexole 1.5 mg PO TID PRN 02/25/20 loperamide 2 mg PO Q4H PRN PRN 02/26/20 beclomethasone dipropionate 80 mcg/actuation HFA breath activated aerosol 1 inh INHALATION BID 03/11/20 montelukast 10 mg tablet 10 mg PO QHS 03/11/20 omeprazole 40 mg capsule,delayed release 40 mg PO DAILY 03/11/20 nitroglycerin 0.4 mg sublingual tablet 0.4 mg SUBLINGUAL Q5M PRN #25 tab 08/04/20 ranolazine 1,000 mg tablet,extended release,12 hr 1,000 mg PO BID #60 tab fluticasone furoate 2 mcg INHALATION DAILY 11/10/20 formoterol fumarate 2 ml INHALATION Q12H 11/10/20 ipratropium-albuterol 3 ml INHALATION Q6H PRN 11/10/20 nicotine 21 mg TRANSDERMAL DAILY #30 ea 11/24/20 furosemide 40 mg PO DAILY #30 tab 11/25/20 prednisone 10 mg PO DAILY #30 tab 11/25/20 Hospital Course Summary of Care Provided Hospital Course: The patient is a 79 year old F admitted 02/25/2020 due to shortness of breath. 1. Acute small bowel obstruction with history of complicated internal hernia status post subtotal colectomy with ileostomy: Patient is being admitted MedSur floor. NPO. IV fluid normal saline. Surgeon Dr. Putnam is being consulted. Patient had last admission in February 2020 for similar condition acute abdominal pain due to complicated hernia/ileus and resolved spontaneously. Mild leukocytosis. Hold oral home medications. Mild hyperkalemia. Serum magnesium normal. Patient had hypoglycemia episode which managed with IV 50% dextrose resolved. IV fluid changed to D5 half NS. Patient is small bowel resolved with conservative management of IV fluid, NG suction. Patient has history of multiple surgeries in the past including bariatric surgery 2003, subtotal colectomy and end ileostomy August 2018 for obstruction and then ventral hernia repair with right and left myofascial flap in August 2020. Patient was told that she is not good for any further surgery Hold Lasix for 5 days. 2. Recent Covid 19 pneumonia about 2 weeks ago with chronic hypoxic respiratory insufficiency secondary to chronic heart failure with preserved ejection fraction and COPD: Patient recent echo EF 65%, mild to moderate mitral valve insufficiency. Currently on IV fluid with titration based on intake and output, with caution to watch for fluid overload. Patient completed Decadron. Advised incentive spirometry. It seems patient had COPD exacerbation secondary to rece nt COVID-19 pneumonia. Patient was managed with bronchodilator, IV Solu-Medrol, incentive spirometry and PEP. Discharged on tapering dose of prednisone. Patient already completed Decadron recently. 3. chronic normocytic anemia-patient had EGD in February 2020 shows no obvious signs of ulceration at the anastomosis or bleeding. Continue PPI IV empirically. Hemoglobin stable at 13.3. 4. CAD with history of recent stent 12/02/2019-continue Plavix, statin, metoprolol. 5. COPD-continue patient's home inhalers. Oxygen therapy to keep pulse ox 90%. Incentive spirometry. 6. JESSICA: Patient follows in pulmonary clinic but noncompliant. 7. Type 2 diabetes pxnbosns-Gfze-Fvazz AC at bedtime coverage Humalog sliding scale. Diet controlled patient not on hypoglycemic agent at home. 8. Restless leg syndrome: 9. Chronic smoker with nicotine dependence: Encouraged cessation. On nicotine patch. Living will/advanced directive/end of life care: Patient does have living will or advanced directive. After discussion of benefits/risks procedures involved with full code, DNR CC arrest and DNR CC, the patient and her opted for DNR-CC Arrest with no intubation Patient does not want artificial life support including intubation, tube feed, ventilator and/chest compression, central venous catheter, vasopressor and DC shock if needed Total time spent in [id number] encounter in discussion of advanced directive 16 minutes. Physical Exam Narrative Patient was given half liter normal saline bolus. Her oxygenation improved to 4 L and is stable. Heart rate is controlled 71. Blood pressure is good. Discussed with nursing staff Physical exam General: Alert, Oriented x3, Cooperative HEENT: Atraumatic, PERRLA, EOMI, Normocephalic Oral: No Gingival or Mucosal Lesions/ Ulcerations Neck: Supple, No JVD, Negative Carotid Bruits Lungs: Air entry diminished in bilateral lung bases. Chronic bilateral expiratory rhonchi. Mild hypoxia Cardiovascular: Sinus rhythm, Normal S1, Normal S2, No murmurs Abdomen: Ileostomy show fecal matter, liquid stool. Bowel Sounds Present, soft, no tenderness or distention. Extremities: Mild bilateral lower leg edema, Capillary Refill Less than 3 Seconds Skin: No rashes, No breakdown Musculoskeletal: No Tenderness to Palpation of Joints or Extremities Neurological: Cranial nerves II-XII grossly intact, DTR 2+/4 and Symmetrical, Neuro grossly intact Psych/Mental Status: Appropriate affect Weight / BMI Weight Weight: 208 lb 8.917 oz Body Mass Index (BMI) 38.2 ABG / Lab / Microbiology Data Result Diagrams: 11/24/20 09:50 11/25/20 06:45 Laboratory: Laboratory Results - last 24 hr 11/24/20 16:23: POC Glucose 153 H 11/25/20 00:54: POC Glucose 145 H 11/25/20 06:33: POC Glucose 128 H 11/25/20 06:45: Sodium 133 L, Potassium 5.4 H, Chloride 102, Carbon Dioxide 25.0, Anion Gap 6, BUN 28 H, Creatinine 1.75 H, Estim Creat Clear Calc 20.62, Est GFR (MDRD) Af Amer 36 L, Est GFR (MDRD) Non-Af 30 L, BUN/Creatinine Ratio 16.0, Glucose 118 H, Calcium 8.8, Magnesium 1.8 11/25/20 11:27: POC Glucose 108 D/C Instructions Discharge Diet: Low fat / Low cholesterol and 1800 Calorie Control Diet Weight Bearing Status: Weight bearing as tolerated Call your doctor if you observe: Fever of 101 or Higher, Coldness, Increased Pain, Numbness or Tingling, Change in Color, Inability to urinate, Inability to have a bowel movement, Shortness of breath, Dizziness, Fainting spells, Swelling in the ankles, Chest pain, Prolonged hiccupping, Increased palpitations (irregular heartbeat), Calf discomfort and Uncontrolled pain Meaningful Use Info Meaningful Use Diagnoses (Choose all that apply): None applicable Discharge Plan Admission Admit Date/Time: 11/22/20 17:18 Primary Reason for Your Visit: SBO Attending Provider: David Velazquez Primary Care Provider: Agnieszka Degroot [employer] Instructions Patient Instructions: ED Chest Pain, Noncardiac Additional Instructions / Restrictions: Self quarantine for 8 more days Discharge Orders/Prescriptions Prescriptions: New nicotine 21 mg/24 hr Patch 24 Hour 21 mg transdermal DAILY Qty: 30 RF: 0 prednisone 10 mg tablet 10 mg PO DAILY Qty: 30 RF: 0 Continued ranolazine 1,000 mg tablet extended release 12 hr 1,000 mg PO BID Qty: 60 RF: 11 nitroglycerin 0.4 mg tablet, sublingual 0.4 mg SUBLINGUAL Q5M PRN (Reason: Chest Pain) Qty: 25 RF: 3 oxybutynin chloride 10 mg tablet extended release 24hr 10 mg PO DAILY RF: 0 midodrine 5 mg tablet 2 tab PO Q8H RF: 0 beclomethasone dipropionate 80 mcg/actuation HFA aerosol breath activated 1 inh INHALATION BID RF: 0 omeprazole 40 mg capsule,delayed release(DR/EC) 40 mg PO DAILY RF: 0 citalopram 20 MG tablet 20 mg PO DAILY RF: 0 albuterol sulfate 1 PUFF inhaler 2 puff INHALATION Q6H PRN PRN (Reason: Sob &/Or Wheezing) RF: 0 montelukast 10 mg tablet 10 mg PO QHS RF: 0 atorvastatin 40 MG tablet 40 mg PO QHS RF: 0 hydroxyzine HCl 25 MG tablet 25 mg PO QHS RF: 0 clopidogrel 75 MG tablet 75 mg PO DAILY RF: 0 loperamide 2 MG capsule 2 mg PO Q4H PRN PRN (Reason: Diarrhea) RF: 0 ipratropium-albuterol 0.5 mg-3 mg(2.5 mg base)/3 mL Solution For Nebulization 3 ml INHALATION Q6H PRN (Reason: sob) RF: 0 formoterol fumarate 20 mcg/2 mL Solution For Nebulization 2 ml INHALATION Q12H RF: 0 fluticasone furoate 50 mcg/actuation Blister With Device 2 mcg INHALATION DAILY RF: 0 furosemide 40 MG tablet 40 mg PO DAILY Qty: 30 RF: 0 metoprolol succinate 25 mg tablet extended release 24 hr 12.5 mg PO DAILY RF: 0 Discontinued Pantoprazole Sodium 40 mg PO BID RF: 0 pramipexole [Mirapex] 1.5 mg Tablet 1.5 mg PO BID RF: 0 No Action pramipexole 1.5 MG tablet 1.5 mg PO TID PRN (Reason: RESTLESS LEGS) RF: 0 Referrals / Follow Up: Carmita Putnam MD [STAFF PHYSICIAN] - Within 2 Weeks (for SBO) Agnieszka Degroot NP, [employer] AD[employer]ER-C [Primary Care Provider] - Within 1 Week Disposition Disposition (needs filled in before D/C Order can be placed): Home, Self Care Charges/Coding Addendum Addendum: Please cancel the billing charge of progress note of today. Visit Charges Inpatient E&M: 97076 Disch Hosp
--- NOTE | 2020-11-25 16:12 | CASEMGMT ---
Spoke to nurse Shauna who states she spoke with family and they are bringing pt portable O2 in when they pick her up.
--- NOTE | 2020-11-26 13:44 | CASEMGMT ---
Pt screened with [facility] Palliative Care Screening Tool due to strata 3, pt met criteria. Pt to dc. TC to Palliative and faxed referral for fu when at home. Left message on vm.
--- NOTE | 2020-11-26 14:10 | CASEMGMT ---
SHANELLE LAGUNA Discharge Follow Up Phone Call: LACE: 14 Strata: 4 Call Date: 11/26/20 Discharge Date: 11/25/20 Time of Call:1410 Duration:<1 min Admitting Dx: SBO SHANELLE LAGUNA attempted to complete follow up phone call after recent hospitalization. Left a vm of reason of call and return call back number on identified vm.
== END 2020-11-25 17:15 | disposition home or self-care (01) | DRG 389 ==
LOC: ED 16:12 → MS3 17:44
PROVIDERS: Admitting Provider Internal Medicine; Emergency Provider Emergency Medicine; PCP Registered Nurse; Visit Provider Internal Medicine
DX: K56.609 Unspecified intestinal obstruction, unspecified as to partial versus complete obstruction (principal); I50.32 Chronic diastolic (congestive) heart failure; J44.1 Chronic obstructive pulmonary disease with (acute) exacerbation; I11.0 Hypertensive heart disease with heart failure; R06.89 Other abnormalities of breathing; R09.02 Hypoxemia; G47.33 Obstructive sleep apnea (adult) (pediatric); Z91.19 Patient's noncompliance with other medical treatment and regimen; G25.81 Restless legs syndrome; Z98.84 Bariatric surgery status; Z90.49 Acquired absence of other specified parts of digestive tract; Z93.2 Ileostomy status; Z66 Do not resuscitate; Z79.51 Long term (current) use of inhaled steroids; F17.210 Nicotine dependence, cigarettes, uncomplicated; E11.51 Type 2 diabetes mellitus with diabetic peripheral angiopathy without gangrene; Z68.38 Body mass index [BMI] 38.0-38.9, adult; E11.649 Type 2 diabetes mellitus with hypoglycemia without coma; E66.01 Morbid (severe) obesity due to excess calories; E87.5 Hyperkalemia; Z99.81 Dependence on supplemental oxygen; D64.9 Anemia, unspecified; I25.10 Atherosclerotic heart disease of native coronary artery without angina pectoris; Z79.02 Long term (current) use of antithrombotics/antiplatelets; Z86.16 Personal history of COVID-19; Z95.5 Presence of coronary angioplasty implant and graft
CPT/HCPCS: 36415; 74018; 74177; 80048; 80053; 81001; 82962; 83690; 83735; 84100; 84145; 85025; 93005; 94640; 94667; 94668; 97162; 97530; 99251; 99285; J7030; J7040; Q9967; A4216; G0463; J2405; J7799

== ENCOUNTER 2021-01-14 14:52 | Emergency (ER) | payer MEDICARE, SELFPAY ==
[2017-12-22 12:49] VITALS: BMI 49.4
[2021-01-14 14:53] VITALS: BP 134/106; PULSE 72; RESP 18; TEMP 36.4; O2SAT 99; BMI 40.2
--- NOTE | 2021-01-14 15:15 | CT_ITS ---
HISTORY: head injury. TECHNIQUE: Multiple axial images were obtained of the brain without intravenous contrast. A radiation dose optimization technique was used for this scan. # of images incl. paperwork: 234. COMPARISON: MRI 01/09/2018. FINDINGS: BRAIN PARENCHYMA:Multiple small foci and zones of low attenuation in the cerebral white matter most compatible with chronic small vessel ischemic gliosis. INTRACRANIAL HEMORRHAGE: No acute intracranial hemorrhage. CSF SPACES/MASS EFFECT: Diffuse atrophy with compensatory ventricular enlargement. No midline shift or other significant mass effect. ORBITS: Mild right periorbital contusion. Bilateral lens resections. CALVARIUM: Intact. PARANASAL SINUSES AND MASTOID AIR CELLS: Mild maxillary sinus mucosal thickening. CT/Brain/Head without Contrast IMPRESSION: No acute intracranial process identified. Chronic small vessel ischemic gliosis. Individualized dose optimization techniques were used for this CT. at 1612 Reported and signed by: Tatiana Sparks MD Electronically Signed: Tatiana Sparks MD at 16:11 EDT Tel , Service support ,
--- NOTE | 2021-01-14 15:15 | RAD_ITS ---
HISTORY: fall, pain. TECHNIQUE: XR Ribs Unilateral W/ PA Chest Min 3 Views. # of images incl. paperwork: 6. COMPARISON: 11/16/2020. FINDINGS: CARDIOMEDIASTINAL BORDERS: Cardiac silhouette borderline enlarged.Pressure cardiac opacity, possible hiatal hernia. Calcification of the aorta. Vascular stent noted. LUNGS: Chronic coarse interstitial markings without focal consolidation. PLEURA: No pleural effusion or pneumothorax. OSSEOUS STRUCTURES: No acute displaced rib fracture. RAD/Ribs Uni Min 3V w/PA Chest IMPRESSION: No acute abnormality identified. at 1651 Reported and signed by: Tatiana Sparks MD Electronically Signed: Tatiana Sparks MD at 16:50 EDT Tel , Service support ,
--- NOTE | 2021-01-14 15:15 | EKG12_ITS ---
Test Reason : FALL Blood Pressure : / mmHG Vent. Rate : 069 BPM Atrial Rate : 069 BPM P-R Int : 198 ms QRS Dur : 084 ms QT Int : 416 ms P-R-T Axes : 061 055 057 degrees QTc Int : 445 ms Normal sinus rhythm Septal infarct , age undetermined Abnormal ECG Confirmed by KALIN LEI, VIVEK ([id number]), medical editor ANDIE GARY ([id number]) on 01/19/2021 10:03:02 A M Referred By: SAIRA Confirmed By:EVI GAGNON MD
--- NOTE | 2021-01-14 15:15 | RAD_ITS ---
HISTORY: pain, fall. TECHNIQUE: XR Humerus Min 2 Views. # of images incl. paperwork: 2. COMPARISON: None. FINDINGS: BONES: No acute fracture identified. Mineralization unremarkable. JOINTS: No dislocation. Degenerative changes. RAD/Humerus min 2 Views IMPRESSION: No acute fracture or dislocation identified in the right humerus. at 1648 Reported and signed by: Tatiana Sparks MD Electronically Signed: Tatiana Sparks MD at 16:47 EDT Tel , Service support ,
--- NOTE | 2021-01-14 15:15 | CT_ITS ---
HISTORY: fall, neck injury and pain. TECHNIQUE: Helically acquired images were obtained of the cervical spine. 2D reformatted images were reviewed. A radiation dose optimization technique was used for this scan. # of images incl. paperwork: 422. IV Contrast dosage and agent: None. COMPARISON: 07/10/2017. FINDINGS: VERTEBRAE: No acute fracture identified. CT bone islands again seen. Generalized osteopenia. VERTEBRAL ALIGNMENT: No significant anterior or posterior subluxation. Mild reversal of the cervical lordosis. DISCS: Degenerative endplate changes particularly at C4-5, C5-6, C6-7. Posterior disc bulge osteophyte complexes with uncovertebral and facet arthropathy. C2-3: Minimal narrowing of the thecal sac. C3-4: Mild central canal stenosis. C4-5: Moderate central canal stenosis and bilateral foraminal narrowing. C5-6: Moderate-severe central canal stenosis and bilateral foraminal narrowing. C6-7: Mild central canal stenosis. Right foraminal narrowing. SOFT TISSUES: No prevertebral soft tissue swelling. Emphysematous lung apices. Thyroid calcification. Trace fluid in the mastoid air cells bilaterally. CT/Spine Cervical without Contras IMPRESSION: No evidence of acute cervical spinal fracture or dislocation. Multilevel degenerative disc disease as described above. Individualized dose optimization techniques were used for this CT. at 1027 Reported and signed by: Tatiaan Sparks MD Electronically Signed: Tatiana Sparks MD at 16:16 EDT Tel , Service support ,
[2021-01-14 15:37] LABS: Absolute Lymphocyte Count 1.62 X10^3/uL (0.83-4.51); Absolute Neutrophil Count 7.3 X10^3/uL (2.0-7.7); Basophil# 0.05 X10^3/uL; Basophil% 0.5 % (0-1); Eosinophil# 0.31 X10^3/uL; Eosinophils% 3.1 % (0-5); Hematocrit 35.5 % (37-47); Lymphocyte # 1.62 X10^3/ul (0.83-4.51); Mean Corpuscular Hgb 30.2 pg (27.0-32.0); Mean Corpuscular Volume 97.5 fL (81-99); Mean Platelet Vol. 8.8 fl (6.2-12.0); Monocyte# 0.72 X10^3/uL; Monocyte% 7.1 % (0-10); NRBC Flagged by Analyzer 0 % (0-5); Neutrophil # 7.34 X10^3/uL (2.7-7.7); Neutrophil % 72.7 % (47-70); Platelet Count 238 K/mm3 (150-450); RBC Distribution Width CV 15.8 % (11.6-14.6); RBC Distribution Width SD 56.3 fl (35.1-43.9); Red Blood Count 3.64 M/mm3 (4.2-5.4); White Blood Count 10.1 K/mm3 (4.4-11.0)
--- NOTE | 2021-01-14 15:46 | EDS_ITS ---
HPI HPI - Fall History of Present Illness Chief Complaint: Fall Informant: patient Narrative Narrative: Patient is a 40-year-old female presenting after fall yesterday morning. Patient states she was getting out of bed around 7 AM when she took 3 steps and then fell. She is not exactly sure why she fell but she does remember falling and remembers hitting her head. But does not report any loss of conscious. She notes she has poor balance at baseline and has a bad left knee secondary to arthritis. She room ambulates with a cane. She hit her forehead and has since had significant swelling and bruising around her right eye. She d enies any vision changes but notes it was hard to see when her eyelid was all swollen. She is on Plavix. She took Tylenol prior to arrival. She is complaining of right arm and neck pain since the fall. She states her whole body hurts. She is continue to have intermittent headaches as well as nausea since her fall so her primary care doctor recommend she come to the emergency room to be evaluated further. Patient denies any other complaints at this time. [facility] Medical History Anemia Asthma Atherosclerosis of coronary artery of [place] heart without angina pectoris Carotid artery stenosis Chronic hypoxemic respiratory failure Chronic respiratory failure with hypoxia CKD (chronic kidney disease) COPD (chronic obstructive pulmonary disease) COVID-19 virus detected (11/12/20) Diabetes Essential (primary) hypertension History of diabetes mellitus, type II History of gastroesophageal reflux (GERD) Hyperlipidemia Ileostomy present Morbid obesity Nicotine dependence Obesities, morbid Obstructive sleep apnea JESSICA (obstructive sleep apnea) Stage 2 moderate COPD by GOLD classification 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) Stenosis of right carotid artery Tobacco abuse Transient hypotension VBI (vertebrobasilar insufficiency) Viral URI Home Medications citalopram 20 mg PO DAILY 02/28/13 [History Last Taken 02/25/20] albuterol sulfate 2 puff INHALATION Q6H PRN PRN 07/15/14 [History Last Taken 02/25/20] atorvastatin 40 mg PO QHS 08/17/18 [History Last Taken 02/24/20] metoprolol succinate 25 mg tablet,extended release 24 hr 12.5 mg PO DAILY tab 12/06/19 [History Last Taken 02/25/20] midodrine 5 mg tablet 2 tab PO Q8H tab 01/25/20 [History Last Taken 02/25/20 04:30] oxybutynin chloride 10 mg tablet,extended release 24 hr 10 mg PO DAILY 01/25/20 [History Last Taken 02/25/20] clopidogrel 75 mg PO DAILY 02/25/20 [History Last Taken 02/25/20] hydroxyzine HCl 25 mg PO QHS 02/25/20 [History Last Taken 02/24/20] pramipexole 1.5 mg PO TID PRN 02/25/20 [History Last Taken 02/25/20] loperamide 2 mg PO Q4H PRN PRN 02/26/20 [History Last Taken Unknown] beclomethasone dipropionate 80 mcg/actuation HFA breath activated aerosol 1 inh INHALATION BID 03/11/20 [History Last Taken Unknown] montelukast 10 mg tablet 10 mg PO QHS 03/11/20 [History Last Taken Unknown] omeprazole 40 mg capsule,delayed release 40 mg PO DAILY 03/11/20 [History Last Taken Unknown] nitroglycerin 0.4 mg sublingual tablet 0.4 mg SUBLINGUAL Q5M PRN #25 tab 08/04/20 [Rx Last Taken Unknown] ranolazine 1,000 mg tablet,extended release,12 hr 1,000 mg PO BID #60 tab 08/04/20 [Rx Last Taken Unknown] fluticasone furoate 2 mcg INHALATION DAILY 11/10/20 [History Last Taken Unknown] formoterol fumarate 2 ml INHALATION Q12H 11/10/20 [History Last Taken Unknown] ipratropium-albuterol 3 ml INHALATION Q6H PRN 11/10/20 [History Last Taken Unknown] nicotine 21 mg TRANSDERMAL DAILY #30 ea 11/24/20 [Rx Last Taken Unknown] furosemide 40 mg PO DAILY #30 tab 11/25/20 [Rx Last Taken Unknown] prednisone 10 mg PO DAILY #30 tab 11/25/20 [Rx Last Taken Unknown] ondansetron HCl [Zofran] 4 mg PO Q8H PRN #14 tab 01/14/21 [Rx Last Taken Unknown] Allergy/AdvReac Type Severity Reaction Status Date / Time aspirin [ASA] Allergy Severe Hives Verified 01/14/21 14:52 ferrous sulfate Allergy Intermediate Hives Verified 01/14/21 14:52 bupropion [From Wellbutrin] Allergy headache Verified 01/14/21 14:52 codeine Allergy Hives Verified 01/14/21 14:52 meperidine HCl [From Demerol] Allergy Hives Verified 01/14/21 14:52 naproxen sodium Allergy Hives Verified 01/14/21 14:52 [From Anaprox] propoxyphene HCl Allergy Hives Verified 01/14/21 14:52 [From Darvon] Sulfa (Sulfonamide Allergy hives, Verified 01/14/21 14:52 Antibiotics) trouble breathing gabapentin AdvReac Intermediate Mental Verified 01/14/21 14:52 status change, foggy headed NSAIDS (Non-Steroidal AdvReac Hives Verified 01/14/21 14:52 Anti-Inflamma Family History Mother CVA (cerebral vascular accident) Father Asthma Hypertension High blood cholesterol level Arthritis Surgical History H/O bariatric surgery History of section History of cholecystectomy History of coronary artery stent placement (12/11/19) History of right knee joint replacement History of right-sided carotid endarterectomy (07/2014) left subclavian artery stent (03/2017) Social History Smoking Status: Current every day smoker tobacco type: cigarettes how long ago did patient quit smokin weeks ago second hand exposure: Yes alcohol intake: never substance use type: does not use caffeine: Yes Type: coffee Number of servings: 6 what type of physical activity do you participate in: none ROS ROS ED Constitutional Constitutional ED: Denies chills or fever(s) Eyes Eyes: Denies blurry vision or change in vision ENT ENT ED: Denies ear pain, rhinorrhea or sore throat Cardiovascular Cardiovascular: Denies chest pain or palpitations Respiratory/Chest Respiratory/Chest: Denies dyspnea Gastrointestinal Gastrointestinal: Reports nausea; Denies abdominal pain or vomiting Genitourinary Genitourinary ED: Denies dysuria or hematuria Musculoskeletal Musculoskeletal: Reports arthralgias and neck pain; Denies myalgias Integumentary Reports other Details: bruising to right chest and right eye area Neurologic Neurologic: Reports headache(s); Denies paresthesias or weakness Psychiatric Psychiatric: Denies depression EXAM Physical Exam Const Vital Signs: 01/14/21 14:53 01/14/21 15:10 Temperature 97.6 F L Temperature Source Temporal Pulse Rate 72 Respiratory Rate 18 Respiratory Effort Normal Non-Labored Respiratory Depth Normal Respiratory Pattern Normal Blood Pressure 134/106 H Blood Pressure Mean 115 Pulse Ox 99 Oxygen Delivery Method Room Air Positive well nourished, well developed and obese General Appearance ED: well developed Nutritional Appearance: obese HEENT Reports TM's clear HEENT Narrative: Ecchymosis to right forehead and right periorbital area trauma; Negative for hematoma Tympanic Membrane ED: Yes TM's clear Eyes PERRL and EOMs intact bilaterally Neck full ROM and supple Neck Narrative: Tenderness to right paraspinal area. No midline tenderness. No step-off sign. General: tenderness Chest Wall palpation of chest normal Chest Narrative: Area of ecchymosis to right anterior chest, no hematoma palpated. Cardio regular rate, regular rhythm and no murmurs GI non-tender GI Narrative: Ostomy bag present. Palpation: soft Back/Spine Cervical Spine: Negative for cervical spine tenderness Thoracic Spine / Upper Back: Negative for thoracic spinal tenderness Lumbar Spine / Lower Back: Negative for lumbar spinal tenderness Extremity normal to inspection and full ROM Extremity Narrative: Tender to palpation of the right proximal arm. Neuro oriented x3, CN's II-XII intact bilaterally, moves all extremities and no focal motor deficits Sensorium / Orientation: alert Psych mental status grossly normal Skin Skin Narrative: Significant ecchymosis to the right forehead and right periorbital area. 3 cm circumferential, slightly irregular ecchymosis to the right chest MDM MDM MDM Narrative Medical decision making narrative: Patient evaluated for closed head injury. Patient fell yesterday morning. She notes she falls asleep easily and sleeps poorly at night. She attributes that to being nervous about her ostomy bag. She been feeling nauseous since. Patient has signs of trauma to her head but is otherwise well-appearing. She is a nonfocal neurologic exam. Work-up obtained looking for secondary causes fall however work-up is largely normal. She is chronic anemia which is near her baseline. She denies any change in the stools from her ostomy. Her CKD is slightly improved from her baseline. Cardiac work- up is normal. No signs of traumatic injury on imaging. Patient is instructed to follow-up with her PCP to monitor H&H. She had thorough evaluation for chronic anemia so I do not think inpatient admission is indicated at this time. The fall was over 24 hours ago and patient's been doing well otherwise. She will be discharged home with a short course of Zofran to help with her nausea. I suspect she has a small postconcussive syndrome. Lab Data Attestation: I reviewed the patient's lab results. Labs: Laboratory Results - last 24 hr 01/14/21 01/14/21 01/14/21 15:27 15:27 15:27 WBC 10.1 RBC 3.64 L Hgb 11.0 L Hct 35.5 L MCV 97.5 MCH 30.2 MCHC 31.0 L RDW Std Deviation 56.3 H RDW Coeff of [place] 15.8 H Plt Count 238 MPV 8.8 Immature Gran % (Auto) 0.600 Neut % (Auto) 72.7 H Lymph % (Auto) 16.0 L [place] % (Auto) 7.1 Eos % (Auto) 3.1 Baso % (Auto) 0.5 Absolute Neuts (auto) 7.3 Absolute Lymphs (auto) 1.62 Nucleated RBC % 0 PT 12.8 INR 1.0 Sodium 143 Potassium 4.7 Chloride 114 H Carbon Dioxide 28.0 Anion Gap 1 L BUN 27 H Creatinine 1.20 H Estim Creat Clear Calc 30.07 Est GFR (MDRD) Af Amer 56 L Est GFR (MDRD) Non-Af 46 L BUN/Creatinine Ratio 22.5 H Glucose 76 Calcium 8.8 Troponin I High Sens 17 Radiography X-Ray: Read by ED Physician, Read by Radiologist, No Fracture and Normal Bony Alignment Diagnostic Testing: Clinical Impression(s) from Imaging Studies Brain CT 01/14/21 15:15 IMPRESSION: No acute intracranial process identified. Chronic small vessel ischemic gliosis. Individualized dose optimization techniques were used for this CT. at 1612 Reported and signed by: Taitana Sparks MD Electronically Signed: Tatiana Sparks MD at 16:11 EDT Tel , Service support , Cervical Spine CT 01/14/21 15:15 IMPRESSION: No evidence of acute cervical spinal fracture or dislocation. Multilevel degenerative disc disease as described above. Individualized dose optimization techniques were used for this CT. at 1617 Reported and signed by: Tatiana Sparks MD Electronically Signed: Tatiana Sparks MD at 16:16 EDT Tel , Service support , Humerus X-Ray 01/14/21 15:15 IMPRESSION: No acute fracture or dislocation identified in the right humerus. at 1648 Reported and signed by: Tatiana Sparks MD Electronically Signed: Tatiana Sparks MD at 16:47 EDT Tel , Service support , Ribs w/Chest X-Ray 01/14/21 15:15 IMPRESSION: No acute abnormality identified. at 1651 Reported and signed by: Tatiana Sparks MD Electronically Signed: Tatiana Sparks MD at 16:50 EDT Tel , Service support , Rhythm Strip Rhythm Strip: Sinus Rhythm Rate: 69 Ectopy: None EKG Initial EKG: Attestation: I personally reviewed and interpreted this EKG as follows: Interpretation: Sinus Rhythm Comments: Normal sinus rhythm at a rate of 69 Normal axis Normal intervals Normal ST segments Discharge Plan Triage Chief Complaint: Fall ED Provider: Shanna Glaser Dx/Rx/DC Orders Clinical Impression: Accident due to mechanical fall without injury, Periorbital ecchymosis of right eye, Chest wall contusion, Right arm pain, Closed head injury, Chronic anemia Instructions: ED Eye Contusion, ED Head Injury (Adult), ED Fall Prevention Prescriptions: New ondansetron HCl [Zofran] 4 mg tablet 4 mg PO Q8H PRN (Reason: nausea and vomiting) Qty: 14 RF: 0 No Action ranolazine 1,000 mg tablet extended release 12 hr 1,000 mg PO BID Qty: 60 RF: 11 nitroglycerin 0.4 mg tablet, sublingual 0.4 mg SUBLINGUAL Q5M PRN (Reason: Chest Pain) Qty: 25 RF: 3 oxybutynin chloride 10 mg tablet extended release 24hr 10 mg PO DAILY RF: 0 midodrine 5 mg tablet 2 tab PO Q8H RF: 0 beclomethasone dipropionate 80 mcg/actuation HFA aerosol breath activated 1 inh INHALATION BID RF: 0 omeprazole 40 mg capsule,delayed release(DR/EC) 40 mg PO DAILY RF: 0 citalopram 20 MG tablet 20 mg PO DAILY RF: 0 albuterol sulfate 1 PUFF inhaler 2 puff INHALATION Q6H PRN PRN (Reason: Sob &/Or Wheezing) RF: 0 montelukast 10 mg tablet 10 mg PO QHS RF: 0 atorvastatin 40 MG tablet 40 mg PO QHS RF: 0 hydroxyzine HCl 25 MG tablet 25 mg PO QHS RF: 0 pramipexole 1.5 MG tablet 1.5 mg PO TID PRN (Reason: RESTLESS LEGS) RF: 0 clopidogrel 75 MG tablet 75 mg PO DAILY RF: 0 loperamide 2 MG capsule 2 mg PO Q4H PRN PRN (Reason: Diarrhea) RF: 0 ipratropium-albuterol 0.5 mg-3 mg(2.5 mg base)/3 mL Solution For Nebulization 3 ml INHALATION Q6H PRN (Reason: sob) RF: 0 formoterol fumarate 20 mcg/2 mL Solution For Nebulization 2 ml INHALATION Q12H RF: 0 fluticasone furoate 50 mcg/actuation Blister With Device 2 mcg INHALATION DAILY RF: 0 nicotine 21 mg/24 hr Patch 24 Hour 21 mg transdermal DAILY Qty: 30 RF: 0 prednisone 10 mg tablet 10 mg PO DAILY Qty: 30 RF: 0 furosemide 40 MG tablet 40 mg PO DAILY Qty: 30 RF: 0 metoprolol succinate 25 mg tablet extended release 24 hr 12.5 mg PO DAILY RF: 0 Primary Care Provider: Agnieszka Degroot NP Referrals: Agnieszka Degroot NP, [facility]ATOR[facility] [Primary Care Provider] - Activity Restrictions/Additional Instructions: Your hemoglobin today was 11.0. Disposition Disposition: Home, Self Care
[2021-01-14 15:50] LABS: Prothrombin Time (Protime)PT. 12.8 SECONDS (11.7-14.9)
[2021-01-14 16:01] LABS: Anion Gap 1 (5-15); BUN 27 mg/dL (7-18); BUN/Creat Ratio 22.5 RATIO (10-20); Calcium,Total 8.8 mg/dL (8.5-10.1); Chloride 114 mmol/L (98-107); EST Glomerular Filtration Rate 46 mL/min (>60); Est Glom Filt Rate - Afr Amer 56 mL/min (>60); Estimated Creatinine Clearance 30.07 ml/min; Glucose 76 mg/dL (74-106); Potassium 4.7 mmol/L (3.5-5.1); Sodium Level 143 mmol/L (136-145); Troponin-I HS 17 pg/mL (3.0-54.0)
[2021-01-14 17:30] LABS: Mucous, Urine 0 SEEN /hpf (<or=2+); Red Blood Cells-Urine 0 SEEN /hpf (0-5)
[2021-01-14 17:47] LABS: Color, Urine Yellow (Yellow); Glucose, Dipstick Normal (Normal); Ketone-Dipstick Negative (Negative); Leukocyte Esterase-Dipstick 500 /ul (Negative); Nitrite-Dipstick Negative (Negative); Occult Blood-Urine 10 /ul (Negative); Protein-Dipstick 100 mg/dl (Negative); Urine Bilirubin Dipstick Negative (Negative); Urine Clarity Sl. Cloudy (Clear); Urine Urobilinogen Normal (Normal)
[2021-01-14 17:57] VITALS: BP 132/74; PULSE 64; RESP 15; O2SAT 95
[2021-01-14 18:04] LABS: Bacteria RARE /hpf (None Seen); Squamous Epithelial Cells - UA 5-10 SEEN /hpf (5-10); White Blood Cells 50-100 SEEN /hpf (0-5)
== END 2021-01-14 17:58 | disposition home or self-care (01) ==
PROVIDERS: Emergency Provider Emergency Medicine; PCP Registered Nurse
DX: S00.11XA Contusion of right eyelid and periocular area, initial encounter (principal); S20.211A Contusion of right front wall of thorax, initial encounter; M79.601 Pain in right arm; I25.10 Atherosclerotic heart disease of native coronary artery without angina pectoris; I12.9 Hypertensive chronic kidney disease with stage 1 through stage 4 chronic kidney disease, or unspecified chronic kidney disease; E11.22 Type 2 diabetes mellitus with diabetic chronic kidney disease; N18.9 Chronic kidney disease, unspecified; F17.210 Nicotine dependence, cigarettes, uncomplicated; E78.5 Hyperlipidemia, unspecified; E66.9 Obesity, unspecified; D63.1 Anemia in chronic kidney disease; Z79.51 Long term (current) use of inhaled steroids; Z79.899 Other long term (current) drug therapy; W18.30XA Fall on same level, unspecified, initial encounter; Y93.01 Activity, walking, marching and hiking; Y92.003 Bedroom of unspecified non-institutional (private) residence as the place of occurrence of the external cause; Y99.8 Other external cause status
CPT/HCPCS: 70450; 71101; 72125; 73060; 80048; 81001; 84484; 85025; 85610; 93005; 99282; A4216

== ENCOUNTER 2021-03-04 16:28 | Emergency (ER) | payer MEDICARE, SELFPAY ==
[2017-12-22 12:49] VITALS: BMI 49.4
[2021-03-04 16:28] VITALS: BP 122/60
[2021-03-04 16:29] VITALS: BP 144/102; PULSE 116; RESP 16; TEMP 36.6; O2SAT 97; BMI 40.2
--- NOTE | 2021-03-04 17:20 | EKG12_ITS ---
Test Reason : LETHARGIC Blood Pressure : / mmHG Vent. Rate : 050 BPM Atrial Rate : 050 BPM P-R Int : 238 ms QRS Dur : 096 ms QT Int : 490 ms P-R-T Axes : 064 064 038 degrees QTc Int : 446 ms Sinus bradycardia with 1st degree A-V block Septal infarct , age undetermined Abnormal ECG Confirmed by STEFANIE LEI, SUMA ([id number]), research editor ANDIE GARY ([id number]) on 03/09/2021 10:14:20 AM Referred By: KIRSTY Confirmed By:SUMA WATTS MD
--- NOTE | 2021-03-04 17:22 | EX.ED.DYSGE1 ---
HPI History of Present Illness Chief Complaint: Weakness Informant: patient and family Onset/Context/Timing Onset: Days Timing: Continuous Current Severity: Mild Maximum Severity: Mild Narrative Narrative: 80-year-old female extensive past medical history including anemia for which she get iron infusions, prior TIA, CHF, CAD with stents. She has been sluggish and increased sleepiness for the last several months. They are working her up for this. She denies dysuria. She is reportedly not diabetic. She has not had a recent hospitalization. Prior similar symptoms: Yes Recent Illness/Hospitalization: No PFSH PFSH Medical History Anemia Asthma Atherosclerosis of coronary artery of [place] heart without angina pectoris Carotid artery stenosis Chronic hypoxemic respiratory failure Chronic respiratory failure with hypoxia CKD (chronic kidney disease) COPD (chronic obstructive pulmonary disease) COVID-19 virus detected (11/12/20) Diabetes Essential (primary) hypertension History of diabetes mellitus, type II History of gastroesophageal reflux (GERD) Hyperlipidemia Ileostomy present Morbid obesity Nicotine dependence Obesities, morbid Obstructive sleep apnea JESSICA (obstructive sleep apnea) Stage 2 moderate COPD by GOLD classification 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) Stenosis of right carotid artery Tobacco abuse Transient hypotension VBI (vertebrobasilar insufficiency) Viral URI Home Medications citalopram 20 mg PO DAILY 02/28/13 [History Last Taken 02/25/20] albuterol sulfate 2 puff INHALATION Q6H PRN PRN 07/15/14 [History Last Taken 02/25/20] atorvastatin 40 mg PO QHS 08/17/18 [History Last Taken 02/24/20] metoprolol succinate 25 mg tablet,extended release 24 hr 12.5 mg PO DAILY tab 12/06/19 [History Last Taken 02/25/20] midodrine 5 mg tablet 2 tab PO Q8H tab 01/25/20 [History Last Taken 02/25/20 04:30] oxybutynin chloride 10 mg tablet,extended release 24 hr 10 mg PO DAILY 01/25/20 [History Last Taken 02/25/20] hydroxyzine HCl 25 mg PO QHS 02/25/20 [History Last Taken 02/24/20] pramipexole 1.5 mg PO TID PRN 02/25/20 [History Last Taken 12/14/20] loperamide 2 mg PO Q4H PRN PRN 02/26/20 [History Last Taken Unknown] beclomethasone dipropionate 80 mcg/actuation HFA breath activated aerosol 1 inh INHALATION BID 03/11/20 [History Last Taken Unknown] montelukast 10 mg tablet 10 mg PO QHS 03/11/20 [History Last Taken Unknown] omeprazole 40 mg capsule,delayed release 40 mg PO DAILY 03/11/20 [History Last Taken Unknown] nitroglycerin 0.4 mg sublingual tablet 0.4 mg SUBLINGUAL Q5M PRN #25 tab 08/04/20 [Rx Last Taken Unknown] ranolazine 1,000 mg tablet,extended release,12 hr 1,000 mg PO BID #60 tab 08/04/20 [Rx Last Taken Unknown] fluticasone furoate 2 mcg INHALATION DAILY 11/10/20 [History Last Taken Unknown] formoterol fumarate 2 ml INHALATION Q12H 11/10/20 [History Last Taken Unknown] ipratropium-albuterol 3 ml INHALATION Q6H PRN 11/10/20 [History Last Taken Unknown] nicotine 21 mg TRANSDERMAL DAILY #30 ea 11/24/20 [Rx Last Taken Unknown] furosemide 40 mg PO DAILY #30 tab 11/25/20 [Rx Last Taken Unknown] prednisone 10 mg PO DAILY #30 tab 11/25/20 [Rx Last Taken Unknown] ondansetron HCl [Zofran] 4 mg PO Q8H PRN #14 tab 01/14/21 [Rx Last Taken Unknown] clopidogrel 75 mg tablet 75 mg PO DAILY #90 tab 02/27/21 [Rx Last Taken Unknown] midodrine 5 mg PO BID 03/04/21 [History Last Taken Unknown] Allergy/AdvReac Type Severity Reaction Status Date / Time aspirin [ASA] Allergy Severe Hives Verified 03/04/21 16:29 ferrous sulfate Allergy Intermediate Hives Verified 03/04/21 16:29 bupropion [From Wellbutrin] Allergy headache Verified 03/04/21 16:29 codeine Allergy Hives Verified 03/04/21 16:29 meperidine HCl [From Demerol] Allergy Hives Verified 03/04/21 16:29 naproxen sodium Allergy Hives Verified 03/04/21 16:29 [From Anaprox] propoxyphene HCl Allergy Hives Verified 03/04/21 16:29 [From [place]] Sulfa (Sulfonamide Allergy hives, Verified 03/04/21 16:29 Antibiotics) trouble breathing gabapentin AdvReac Intermediate Mental Verified 03/04/21 16:29 status change, foggy headed NSAIDS (Non-Steroidal AdvReac Hives Verified 03/04/21 16:29 Anti-Inflamma Family History Mother CVA (cerebral vascular accident) Father Asthma Hypertension High blood cholesterol level Arthritis Surgical History H/O bariatric surgery History of section History of cholecystectomy History of coronary artery stent placement (12/11/19) History of right knee joint replacement History of right-sided carotid endarterectomy (07/2014) left subclavian artery stent (03/2017) Social History Smoking Status: Current every day smoker tobacco type: cigarettes how long ago did patient quit smokin weeks ago second hand exposure: Yes alcohol intake: never substance use type: does not use caffeine: Yes Type: coffee Number of servings: 6 what type of physical activity do you participate in: none ROS ROS ED ROS Narrative No recent illness. Chronic loose stools by her colostomy. Review of Systems ROS Unobtainable: Denies due to encephalopathy Constitutional Constitutional ED: Denies chills or fever(s) ENT ENT ED: Denies ear pain Cardiovascular Cardiovascular: Denies chest pain Respiratory/Chest Respiratory/Chest: Denies cough or dyspnea Gastrointestinal Gastrointestinal: Reports diarrhea; Denies abdominal pain, nausea or vomiting Genitourinary Genitourinary ED: Denies dysuria Musculoskeletal Musculoskeletal: Denies myalgias Integumentary Denies rash Neurologic Neurologic: Denies headache(s) Psychiatric Psychiatric: Denies depression Endocrine Endocrinology: Denies polyuria Allergic/Immunologic Allergic/Immunologic ED: Denies urticaria EXAM Physical Exam Narrative Exam Narrative: 80-year-old female no acute distress vital signs stable afebrile. Pulse is 97% room air no hypoxia. H EENT exam unremarkable. Moist remembers. No facial droop. No trauma. Neck nontender. No lymphadenopathy. Lungs clear to auscultation bilaterally. Heart regular rhythm no murmur. Abdomen soft nontender normal bowel sounds no peritoneal signs. Right lower quadrant colostomy bag. Loose brown stool. Moving all 4 extremities. Calves are nontender. She does have trace edema bilaterally. It is chronic. Alert and has been around she falls asleep frequently throughout the exam. She has no motor deficits. Const Vital Signs: 03/04/21 16:28 03/04/21 16:29 03/04/21 18:28 Temperature 97.8 F Temperature Source Temporal Pulse Rate 116 H 52 L Respiratory Rate 16 15 Blood Pressure 122/60 H 144/102 H 145/63 H Blood Pressure Mean 80 116 90 Pulse Ox 97 93 Oxygen Delivery Method Room Air Room Air Positive well nourished, well developed and obese; Negative for cachectic, contractures or unkempt General Appearance ED: well developed and NAD; Negative for unkempt, cachectic, contractures, cyanotic or diaphoretic Nutritional Appearance: obese; Negative for cachectic HEENT Reports moist mucous membranes Negative for trauma or tenderness Eyes PERRL and EOMs intact bilaterally General Eye ED: Negative for pale conjunctiva Neck no lymphadenopathy, supple and no JVD General: Negative for tenderness Chest Wall inspection of chest normal and palpation of chest normal Resp normal respiratory effort and clear to auscultation bilaterally Effort and Inspection: Negative for pain with movement Auscultation: Negative for rales, rhonchi or wheezes Cardio regular rate, regular rhythm, S1 normal heart sound, S2 normal heart sound and no murmurs GI normal to inspection, nondistended, normoactive bowel sounds, non-tender, non-distended and no masses Inspection: Negative for abdominal distention Auscultation: normoactive bowel sounds Palpation: soft; Negative for tender, guarding or rebound tenderness present Back/Spine no CVA tenderness General Back: Negative for CVA tenderness Cervical Spine: Negative for cervical spine tenderness Extremity normal to inspection Extremity Narrative: Trace edema both lower extremities. Calves are nontender. General Extremety ED: Yes edema; Negative for tenderness General Extremity: edema Neuro oriented x3 Sensorium / Orientation: alert; Negative for orientation impaired, lethargic or stuporous Motor Exam: strength 5/5 throughout Psych mental status grossly normal Appearance: Negative for unkempt Attitude: No agitated Mood & Affect: Negative for depressed or tearful Skin no rashes or lesions noted and no wounds MDM MDM MDM Narrative Medical decision making narrative: 80-year-old female with multiple chronic medical problems. Brought in for generalized weakness. Exam is benign. She will go through a work-up looking for signs of infection. Chest x-ray and labs. The nurses will straight right after for a UA which be sent off. Repeat exam patient is doing well at 7:45 PM. We went over her test results. She meets no criteria for admission. Clinically she is doing well at this time. She is currently on antibiotic for respiratory infection. The chest x-ray shows no signs of pneumonia. She has been on CPAP before in the past which I think she needs they will follow up with her primary care provider see if that can be reinstituted. In the past it was stopped due to insurance reasons. Lab Data Attestation: I reviewed the patient's lab results. Lab results narrative: CBC shows a white count 7.9. Hemoglobin 10.3. Her last hemoglobin was 11 in early January. Platelets of 202. Urinalysis is negative. No nitrates, no white nor red cells nor bacteria. Electrolytes show potassium of 5.4 gap of 6 BUN of 30 creatinine 0.9. Liver enzymes are unremarkable. Lactic acid normal at 0.4. Labs: Laboratory Results - last 24 hr 03/04/21 03/04/21 03/04/21 17:20 18:00 18:00 WBC 7.9 RBC 3.53 L Hgb 10.3 L Hct 33.8 L MCV 95.8 MCH 29.2 MCHC 30.5 L RDW Std Deviation 55.4 H RDW Coeff of [place] 15.7 H Plt Count 202 MPV 9.6 Immature Gran % (Auto) 0.500 Neut % (Auto) 65.2 Lymph % (Auto) 20.7 [place] % (Auto) 8.8 Eos % (Auto) 4.2 Baso % (Auto) 0.6 Absolute Neuts (auto) 5.2 Absolute Lymphs (auto) 1.64 Nucleated RBC % 0 Sodium 143 Potassium 5.4 H Chloride 109 H Carbon Dioxide 28.0 Anion Gap 6 BUN 30 H Creatinine 0.98 Estim Creat Clear Calc 36.82 Est GFR (MDRD) Af Amer 70 Est GFR (MDRD) Non-Af 58 L BUN/Creatinine Ratio 30.5 H Glucose 83 Lactic Acid Calcium 8.6 Total Bilirubin 0.40 AST 26 ALT 27 Alkaline Phosphatase 121 H Total Protein 6.9 Albumin 2.7 L Globulin 4.2 Albumin/Globulin Ratio 0.6 L Urine Color Yellow Urine Clarity Clear Urine pH 5.0 Ur Specific [place] 1.020 Urine Protein 30 H Urine Glucose (UA) Normal Urine Ketones Negative Urine Occult Blood Negative Urine Nitrite Negative Urine Bilirubin Negative Urine Urobilinogen Normal Ur Leukocyte Esterase Negative Urine RBC 0 SEEN Urine WBC 0 SEEN Ur Squamous Epith Cells 0 SEEN Urine Bacteria 0 SEEN Urine Mucus 0 SEEN 03/04/21 18:00 WBC RBC Hgb Hct MCV MCH MCHC RDW Std Deviation RDW Coeff of [place] Plt Count MPV Immature Gran % (Auto) Neut % (Auto) Lymph % (Auto) [place] % (Auto) Eos % (Auto) Baso % (Auto) Absolute Neuts (auto) Absolute Lymphs (auto) Nucleated RBC % Sodium Potassium Chloride Carbon Dioxide Anion Gap BUN Creatinine Estim Creat Clear Calc Est GFR (MDRD) Af Amer Est GFR (MDRD) Non-Af BUN/Creatinine Ratio Glucose Lactic Acid 0.4 Calcium Total Bilirubin AST ALT Alkaline Phosphatase Total Protein Albumin Globulin Albumin/Globulin Ratio Urine Color Urine Clarity Urine pH Ur Specific [place] Urine Protein Urine Glucose (UA) Urine Ketones Urine Occult Blood Urine Nitrite Urine Bilirubin Urine Urobilinogen Ur Leukocyte Esterase Urine RBC Urine WBC Ur Squamous Epith Cells Urine Bacteria Urine Mucus Radiography Chest X-Ray - ED: 1 View, Read by ED Physician, Heart, Lungs, Mediastinum, Bony Structures, No Acute Disease and Chronic Changes Diagnostic Testing: Clinical Impression(s) from Imaging Studies Chest X-Ray 03/04/21 17:32 IMPRESSION: Mild prominence of the interstitial markings in the lower lobes more pronounced on the right which may be consistent with chronic inflammatory changes with significant interval improvement since previous exam. Electronically Signed: Gabino Marques MD at 18:06 EST , Service support , Single view, portable chest x-ray, interpreted by myself and the radiologist shows chronic changes but no acute process. No infiltrate nor pneumonia. Rhythm Strip Rhythm Strip: Sinus Rhythm Rate: 50 Ectopy: None EKG Initial EKG: Attestation: I personally reviewed and interpreted this EKG as follows: Interpretation: No Acute Injury Pattern and Sinus Bradycardia Comments: Sinus bradycardia rate of 50 first-degree AV block with a [place] interval of 238. No acute signs of NM or ischemia. Discharge Plan Triage Chief Complaint: Weakness ED Provider: Juma Garcia Dx/Rx/DC Orders Clinical Impression: Generalized weakness, History of coronary artery disease, History of obstructive sleep apnea Instructions: ED Weakness (Uncertain Cause) Prescriptions: No Action ranolazine 1,000 mg tablet extended release 12 hr 1,000 mg PO BID Qty: 60 RF: 11 nitroglycerin 0.4 mg tablet, sublingual 0.4 mg SUBLINGUAL Q5M PRN (Reason: Chest Pain) Qty: 25 RF: 3 oxybutynin chloride 10 mg tablet extended release 24hr 10 mg PO DAILY RF: 0 midodrine 5 mg tablet 2 tab PO Q8H RF: 0 beclomethasone dipropionate 80 mcg/actuation HFA aerosol breath activated 1 inh INHALATION BID RF: 0 omeprazole 40 mg capsule,delayed release(DR/EC) 40 mg PO DAILY RF: 0 citalopram 20 MG tablet 20 mg PO DAILY RF: 0 albuterol sulfate 1 PUFF inhaler 2 puff INHALATION Q6H PRN PRN (Reason: Sob &/Or Wheezing) RF: 0 montelukast 10 mg tablet 10 mg PO QHS RF: 0 atorvastatin 40 MG tablet 40 mg PO QHS RF: 0 hydroxyzine HCl 25 MG tablet 25 mg PO QHS RF: 0 pramipexole 1.5 MG tablet 1.5 mg PO TID PRN (Reason: RESTLESS LEGS) RF: 0 loperamide 2 MG capsule 2 mg PO Q4H PRN PRN (Reason: Diarrhea) RF: 0 ipratropium-albuterol 0.5 mg-3 mg(2.5 mg base)/3 mL Solution For Nebulization 3 ml INHALATION Q6H PRN (Reason: sob) RF: 0 formoterol fumarate 20 mcg/2 mL Solution For Nebulization 2 ml INHALATION Q12H RF: 0 fluticasone furoate 50 mcg/actuation Blister With Device 2 mcg INHALATION DAILY RF: 0 nicotine 21 mg/24 hr Patch 24 Hour 21 mg transdermal DAILY Qty: 30 RF: 0 prednisone 10 mg tablet 10 mg PO DAILY Qty: 30 RF: 0 furosemide 40 MG tablet 40 mg PO DAILY Qty: 30 RF: 0 ondansetron HCl [Zofran] 4 mg tablet 4 mg PO Q8H PRN (Reason: nausea and vomiting) Qty: 14 RF: 0 midodrine 5 mg tablet 5 mg PO BID RF: 0 metoprolol succinate 25 mg tablet extended release 24 hr 12.5 mg PO DAILY RF: 0 clopidogrel 75 mg tablet 75 mg PO DAILY Qty: 90 RF: 3 Primary Care Provider: Agnieszka Degroot NP Referrals: Agnieszka Degroot NP, [facility] [Primary Care Provider] - As soon as possible Activity Restrictions/Additional Instructions: Follow-up with your primary care provider soon as possible. I strongly encourage that she is back on CPAP at night for obstructive sleep apnea. Labs and chest x-ray and urinalysis were all unremarkable tonight. Disposition Disposition: Home, Self Care
--- NOTE | 2021-03-04 17:32 | RAD_ITS ---
STUDY: X-RAY CHEST REASON FOR EXAM: Female, 80 years old. cough TECHNIQUE: AP portable COMPARISON: 11/16/2020 FINDINGS: Mild interstitial thickening in the right lower lobe and to lesser extent at the left base.. There is no demonstrated pleural abnormality. Heart is mildly enlarged.. Normal mediastinum and chloe. Normal visualized pulmonary arteries. Mildly calcified aortic arch and descending thoracic aorta. Normal visualized thoracic spine. Normal visualized ribs, clavicles, and shoulders. There is no demonstrated abnormality of the visualized soft tissue structures of the upper abdomen There is improved aeration of both lung bases since previous exam. RAD/Chest 1 View (Portable) IMPRESSION: Mild prominence of the interstitial markings in the lower lobes more pronounced on the right which may be consistent with chronic inflammatory changes with significant interval improvement since previous exam. Electronically Signed: Gabino Marques MD at 18:06 EST , Service support ,
[2021-03-04 17:38] LABS: Bacteria 0 SEEN /hpf (None Seen); Mucous, Urine 0 SEEN /hpf (<or=2+); Red Blood Cells-Urine 0 SEEN /hpf (0-5); Squamous Epithelial Cells - UA 0 SEEN /hpf (5-10); White Blood Cells 0 SEEN /hpf (0-5)
[2021-03-04 18:14] LABS: Color, Urine Yellow (Yellow); Glucose, Dipstick Normal (Normal); Ketone-Dipstick Negative (Negative); Leukocyte Esterase-Dipstick Negative /ul (Negative); Nitrite-Dipstick Negative (Negative); Occult Blood-Urine Negative /ul (Negative); Protein-Dipstick 30 mg/dl (Negative); Urine Bilirubin Dipstick Negative (Negative); Urine Clarity Clear (Clear); Urine Urobilinogen Normal (Normal)
[2021-03-04 18:18] LABS: Absolute Lymphocyte Count 1.64 X10^3/uL (0.83-4.51); Absolute Neutrophil Count 5.2 X10^3/uL (2.0-7.7); Basophil# 0.05 X10^3/uL; Basophil% 0.6 % (0-1); Eosinophil# 0.33 X10^3/uL; Eosinophils% 4.2 % (0-5); Hematocrit 33.8 % (37-47); Hemoglobin 10.3 g/dL (12.0-15.0); Lymphocyte # 1.64 X10^3/ul (0.83-4.51); Lymphocyte % 20.7 % (19-41); Mean Corp Hgb Conc 30.5 g/dL (32-36); Mean Corpuscular Hgb 29.2 pg (27.0-32.0); Mean Corpuscular Volume 95.8 fL (81-99); Mean Platelet Vol. 9.6 fl (6.2-12.0); Monocyte% 8.8 % (0-10); NRBC Flagged by Analyzer 0 % (0-5); Neutrophil # 5.15 X10^3/uL (2.7-7.7); Neutrophil % 65.2 % (47-70); Platelet Count 202 K/mm3 (150-450); RBC Distribution Width CV 15.7 % (11.6-14.6); RBC Distribution Width SD 55.4 fl (35.1-43.9); Red Blood Count 3.53 M/mm3 (4.2-5.4); White Blood Count 7.9 K/mm3 (4.4-11.0)
[2021-03-04 18:28] VITALS: BP 145/63; PULSE 52; RESP 15; O2SAT 93
[2021-03-04 18:38] LABS: Lactic Acid 0.4 mmol/L (0.4-1.9)
[2021-03-04 18:41] LABS: ALB/GLOB Ratio 0.6 RATIO (0.9-2.4); AST(SGOT) 26 U/L (15-37); Alanine Aminotransfer ALT/SGPT 27 U/L (13-56); Albumin, Serum 2.7 g/dL (3.2-5.0); Alkaline Phosphatase 121 U/L (45-117); Anion Gap 6 (5-15); BUN 30 mg/dL (7-18); BUN/Creat Ratio 30.5 RATIO (10-20); Calcium,Total 8.6 mg/dL (8.5-10.1); Chloride 109 mmol/L (98-107); Creatinine, Serum 0.98 mg/dL (0.55-1.02); EST Glomerular Filtration Rate 58 mL/min (>60); Est Glom Filt Rate - Afr Amer 70 mL/min (>60); Estimated Creatinine Clearance 36.82 ml/min; Globulin 4.2 g/dL (2.2-4.2); Glucose 83 mg/dL (74-106); Potassium 5.4 mmol/L (3.5-5.1); Protein, Total 6.9 g/dL (6.4-8.2); Sodium Level 143 mmol/L (136-145)
[2021-03-04 19:59] VITALS: BP 130/60; PULSE 59; RESP 18; O2SAT 92
== END 2021-03-04 20:41 | disposition home or self-care (01) ==
PROVIDERS: Emergency Provider Emergency Medicine; PCP Registered Nurse
DX: R53.1 Weakness (principal); I25.10 Atherosclerotic heart disease of native coronary artery without angina pectoris; G47.33 Obstructive sleep apnea (adult) (pediatric); Z95.5 Presence of coronary angioplasty implant and graft; I13.0 Hypertensive heart and chronic kidney disease with heart failure and stage 1 through stage 4 chronic kidney disease, or unspecified chronic kidney disease; Z86.73 Personal history of transient ischemic attack (TIA), and cerebral infarction without residual deficits; J96.11 Chronic respiratory failure with hypoxia; I50.9 Heart failure, unspecified; K21.9 Gastro-esophageal reflux disease without esophagitis; E11.22 Type 2 diabetes mellitus with diabetic chronic kidney disease; N18.9 Chronic kidney disease, unspecified; J44.9 Chronic obstructive pulmonary disease, unspecified; E78.5 Hyperlipidemia, unspecified; E66.01 Morbid (severe) obesity due to excess calories; F17.210 Nicotine dependence, cigarettes, uncomplicated; Z68.41 Body mass index [BMI] 40.0-44.9, adult; Z86.16 Personal history of COVID-19; Z79.899 Other long term (current) drug therapy; Z79.51 Long term (current) use of inhaled steroids; Z79.02 Long term (current) use of antithrombotics/antiplatelets; Z98.84 Bariatric surgery status; I44.0 Atrioventricular block, first degree
CPT/HCPCS: 71045; 80053; 81001; 83605; 85025; 93005; 99285; A4216

== ENCOUNTER 2021-05-29 22:50 | Emergency (ER) | payer MEDICARE, SELFPAY ==
[2017-12-22 12:49] VITALS: BMI 49.4
[2021-05-29 22:51] VITALS: BP 149/85; PULSE 67; RESP 18; TEMP 36.4; O2SAT 94; BMI 36.6
[2021-05-29 22:52] VITALS: BP 149/85; PULSE 67; RESP 18; TEMP 36.4; O2SAT 94
--- NOTE | 2021-05-29 23:05 | EDS_ITS ---
HPI History of Present Illness Chief Complaint: Flank Pain Narrative Narrative: 80-year-old female past medical history of coronary artery disease, states she has stage III kidney failure, presents with left-sided flank and back pain that she has had since yesterday. She states that she has had problems on and off with low back pain and was not sure if this was her back or her kidney. She denies any dysuria or hematuria. No fevers or chills. Pain is somewhat worse with movement. It is in her left low back by her waist. It does not radiate. No fevers or chills. She is nauseated at times but has not vomited. For analgesia she took half a Vicodin tablet that she had leftover. She presents because of the left low back and flank pain. PFSH [facility] Medical History Anemia Asthma Atherosclerosis of coronary artery of [place] heart without angina pectoris Carotid artery stenosis Chronic hypoxemic respiratory failure Chronic respiratory failure with hypoxia CKD (chronic kidney disease) COPD (chronic obstructive pulmonary disease) COVID-19 virus detected (11/12/20) Diabetes Essential (primary) hypertension History of diabetes mellitus, type II History of gastroesophageal reflux (GERD) Hyperlipidemia Ileostomy present Morbid obesity Nicotine dependence Obesities, morbid Obstructive sleep apnea JESSICA (obstructive sleep apnea) Stage 2 moderate COPD by GOLD classification 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) Stenosis of right carotid artery Tobacco abuse Transient hypotension VBI (vertebrobasilar insufficiency) Viral URI Home Medications citalopram 20 mg PO DAILY 02/28/13 [History Last Taken 02/25/20] albuterol sulfate 2 puff INHALATION Q6H PRN PRN 07/15/14 [History Last Taken 02/25/20] atorvastatin 40 mg PO QHS 08/17/18 [History Last Taken 02/24/20] metoprolol succinate 25 mg tablet,extended release 24 hr 12.5 mg PO DAILY tab 12/06/19 [History Last Taken 02/25/20] midodrine 5 mg tablet 2 tab PO Q8H tab 01/25/20 [History Last Taken 02/25/20 04:30] oxybutynin chloride 10 mg tablet,extended release 24 hr 10 mg PO DAILY 01/25/20 [History Last Taken 02/25/20] hydroxyzine HCl 25 mg PO QHS 02/25/20 [History Last Taken 02/24/20] pramipexole 1.5 mg PO TID PRN 02/25/20 [History Last Taken 02/25/20] loperamide 2 mg PO Q4H PRN PRN 02/26/20 [History Last Taken Unknown] beclomethasone dipropionate 80 mcg/actuation HFA breath activated aerosol 1 inh INHALATION BID 03/11/20 [History Last Taken Unknown] montelukast 10 mg tablet 10 mg PO QHS 03/11/20 [History Last Taken Unknown] omeprazole 40 mg capsule,delayed release 40 mg PO DAILY 03/11/20 [History Last Taken Unknown] nitroglycerin 0.4 mg sublingual tablet 0.4 mg SUBLINGUAL Q5M PRN #25 tab 08/04/20 [Rx Last Taken Unknown] ranolazine 1,000 mg tablet,extended release,12 hr 1,000 mg PO BID #60 tab 08/04/20 [Rx Last Taken Unknown] fluticasone furoate 2 mcg INHALATION DAILY 11/10/20 [History Last Taken Unknown] formoterol fumarate 2 ml INHALATION Q12H 11/10/20 [History Last Taken Unknown] ipratropium-albuterol 3 ml INHALATION Q6H PRN 11/10/20 [History Last Taken Unknown] nicotine 21 mg TRANSDERMAL DAILY #30 ea 11/24/20 [Rx Last Taken Unknown] furosemide 40 mg PO DAILY #30 tab 11/25/20 [Rx Last Taken Unknown] prednisone 10 mg PO DAILY #30 tab 11/25/20 [Rx Last Taken Unknown] ondansetron HCl [Zofran] 4 mg PO Q8H PRN #14 tab 01/14/21 [Rx Last Taken Unknown] clopidogrel 75 mg tablet 75 mg PO DAILY #90 tab 02/27/21 [Rx Last Taken Unknown] midodrine 5 mg PO BID 03/04/21 [History Last Taken Unknown] Allergy/AdvReac Type Severity Reaction Status Date / Time aspirin [ASA] Allergy Severe Hives Verified 05/29/21 22:51 ferrous sulfate Allergy Intermediate Hives Verified 05/29/21 22:51 bupropion [From Wellbutrin] Allergy headache Verified 05/29/21 22:51 codeine Allergy Hives Verified 05/29/21 22:51 meperidine HCl [From Demerol] Allergy Hives Verified 05/29/21 22:51 naproxen sodium Allergy Hives Verified 05/29/21 22:51 [From Anaprox] propoxyphene HCl Allergy Hives Verified 05/29/21 22:51 [From Darvon] Sulfa (Sulfonamide Allergy hives, Verified 05/29/21 22:51 Antibiotics) trouble breathing gabapentin AdvReac Intermediate Mental Verified 05/29/21 22:51 status change, foggy headed NSAIDS (Non-Steroidal AdvReac Hives Verified 05/29/21 22:51 Anti-Inflamma Family History Mother CVA (cerebral vascular accident) Father Asthma Hypertension High blood cholesterol level Arthritis Surgical History H/O bariatric surgery History of section History of cholecystectomy History of coronary artery stent placement (12/11/19) History of right knee joint replacement History of right-sided carotid endarterectomy (07/2014) left subclavian artery stent (03/2017) Social History Smoking Status: Current every day smoker tobacco type: cigarettes how long ago did patient quit smokin weeks ago second hand exposure: Yes alcohol intake: never substance use type: does not use caffeine: Yes Type: coffee Number of servings: 6 what type of physical activity do you participate in: none ROS ROS ED ROS Narrative Constitutional: No fever, no chills. HEENT: No sore throat. No neck pain. No loss of vision. No rhinorrhea. Cardiovascular: No chest pain. No palpitations. No pedal edema. Respiratory: No cough, no shortness of breath. Abdominal: No abdominal pain. Positive nausea. No vomiting. Genitourinary: No dysuria. No hematuria. Left low back/flank pain Musculoskeletal: No myalgias. No arthralgias. Neurologic: No headaches. No dizziness. No lightheadedness. Skin: No rash. No change in color. Psychiatric: No depression. No anxiety. EXAM Physical Exam Narrative Exam Narrative: Afebrile. Vital signs noted. HEENT: Normocephalic. Atraumatic. PERRL, EOMI. Neck soft and supple. No point tenderness or step off. Cardiovascular: Regular rate and rhythm. No murmurs, rubs, or gallops appreciated. Respiratory: No tachypnea. Lungs clear to auscultation bilaterally. Gastrointestinal: Abdomen soft, obese, nontender, with normoactive bowel sounds. No rebound or guarding. No CVA tenderness to percussion. Neurological: Awake. Alert. Nonfocal, nonlateralizing. Straight leg raising negative bilaterally. DTRs equal and symmetric. Skin: No rash. Normal color. No pallor. Musculoskeletal: No pedal edema. Full range of motion extremities. Const Vital Signs: 05/29/21 22:51 05/29/21 22:52 Temperature 97.6 F L 97.6 F L Temperature Source Temporal Temporal Pulse Rate 67 67 Respiratory Rate 18 18 Blood Pressure 149/85 H 149/85 H Blood Pressure Mean 106 106 Pulse Ox 94 94 Oxygen Delivery Method Room Air Room Air MDM MDM MDM Narrative Medical decision making narrative: Kidney stone work-up was pursued. I will obtain CBC, BMP, and CT imaging. We will also obtain a urinalysis to look for signs of infection. Patient has normal white count of 9.1, hemoglobin stable 11.9. Platelet count normal at 251. Electrolyte panel shows potassium slightly elevated 5.2, but she has had problems with chronic hyperkalemia. She states she is on a diet for this. Chloride slightly elevated at 112. Her creatinine is elevated at 1.68, but she has had a history of elevated creatinines given her chronic kidney injury. Urinalysis shows 10-25 WBCs with 0 RBCs. She is not having dysuria or pain with urination, and there is no evidence of inflammation consistent with pyelonephritis on the CT scan. This will be sent for culture. I do not feel that antibiotics are indicated. She was given 1 [place] tablet here for analgesia. She states she takes half a tablet at home and has some leftover. I do feel that she has more musculoskeletal back pain. I feel she can be discharged safely home with follow-up. Her daughter is at the bedside. They agree with the plan. Return instructions to the emergency department were reviewed. Disposition is discharged home in stable condition. Lab Data Attestation: I reviewed the patient's lab results. Labs: Laboratory Results - last 24 hr 05/29/21 05/29/21 05/29/21 23:10 23:10 23:58 WBC 9.1 RBC 4.00 L Hgb 11.9 L Hct 38.6 MCV 96.5 MCH 29.8 MCHC 30.8 L RDW Std Deviation 56.4 H RDW Coeff of [place] 15.9 H Plt Count 251 MPV 9.2 Immature Gran % (Auto) 1.500 H Neut % (Auto) 65.6 Lymph % (Auto) 20.7 [place] % (Auto) 9.2 Eos % (Auto) 2.5 Baso % (Auto) 0.5 Absolute Neuts (auto) 6.0 Absolute Lymphs (auto) 1.89 Nucleated RBC % 0 Sodium 142 Potassium 5.2 H Chloride 112 H Carbon Dioxide 29.0 Anion Gap 1 L BUN 23 H Creatinine 1.68 H Estim Creat Clear Calc 21.48 Est GFR (MDRD) Af Amer 38 L Est GFR (MDRD) Non-Af 31 L BUN/Creatinine Ratio 13.7 Glucose 78 Calcium 8.2 L Urine Color Yellow Urine Clarity Sl. Cloudy Urine pH 5.0 Ur Specific [place] 1.020 Urine Protein 100 H Urine Glucose (UA) Normal Urine Ketones 5 H Urine Occult Blood Negative Urine Nitrite Negative Urine Bilirubin Negative Urine Urobilinogen Normal Ur Leukocyte Esterase 500 H Urine RBC 0 SEEN Urine WBC 10-25 SEEN Ur Squamous Epith Cells 0-5 SEEN Urine Bacteria 1+ Urine Mucus 0 SEEN Radiography Diagnostic Testing: Clinical Impression(s) from Imaging Studies Abdomen/Pelvis CT 05/29/21 23:34 IMPRESSION: Multiple vascular calcifications are seen. There is a cyst at the lateral margin of the right kidney similar to the previous study of 11/22/2020. The small nodule seen at the right lung base previously is no longer identified. No definite hydronephrosis. Multiple vascular calcifications make it difficult to exclude a calcification associated with the ureter or renal pelvis. Electronically Signed: Nick Jay MD at 0:18 EDT , Discharge Plan Triage Chief Complaint: Flank Pain ED Provider: Sean Armas Dx/Rx/DC Orders Clinical Impression: Back pain, Left flank pain, Acute hyperkalemia Instructions: ED Back Pain (Acute or Chronic), ED Flank Pain, Uncertain Cause, ED Hyperkalemia Prescriptions: No Action ranolazine 1,000 mg tablet extended release 12 hr 1,000 mg PO BID Qty: 60 RF: 11 nitroglycerin 0.4 mg tablet, sublingual 0.4 mg SUBLINGUAL Q5M PRN (Reason: Chest Pain) Qty: 25 RF: 3 oxybutynin chloride 10 mg tablet extended release 24hr 10 mg PO DAILY RF: 0 midodrine 5 mg tablet 2 tab PO Q8H RF: 0 beclomethasone dipropionate 80 mcg/actuation HFA aerosol breath activated 1 inh INHALATION BID RF: 0 omeprazole 40 mg capsule,delayed release(DR/EC) 40 mg PO DAILY RF: 0 citalopram 20 MG tablet 20 mg PO DAILY RF: 0 albuterol sulfate 1 PUFF inhaler 2 puff INHALATION Q6H PRN PRN (Reason: Sob &/Or Wheezing) RF: 0 montelukast 10 mg tablet 10 mg PO QHS RF: 0 atorvastatin 40 MG tablet 40 mg PO QHS RF: 0 hydroxyzine HCl 25 MG tablet 25 mg PO QHS RF: 0 pramipexole 1.5 MG tablet 1.5 mg PO TID PRN (Reason: RESTLESS LEGS) RF: 0 loperamide 2 MG capsule 2 mg PO Q4H PRN PRN (Reason: Diarrhea) RF: 0 ipratropium-albuterol 0.5 mg-3 mg(2.5 mg base)/3 mL Solution For Nebulization 3 ml INHALATION Q6H PRN (Reason: sob) RF: 0 formoterol fumarate 20 mcg/2 mL Solution For Nebulization 2 ml INHALATION Q12H RF: 0 fluticasone furoate 50 mcg/actuation Blister With Device 2 mcg INHALATION DAILY RF: 0 nicotine 21 mg/24 hr Patch 24 Hour 21 mg transdermal DAILY Qty: 30 RF: 0 prednisone 10 mg tablet 10 mg PO DAILY Qty: 30 RF: 0 furosemide 40 MG tablet 40 mg PO DAILY Qty: 30 RF: 0 ondansetron HCl [Zofran] 4 mg tablet 4 mg PO Q8H PRN (Reason: nausea and vomiting) Qty: 14 RF: 0 midodrine 5 mg tablet 5 mg PO BID RF: 0 metoprolol succinate 25 mg tablet extended release 24 hr 12.5 mg PO DAILY RF: 0 clopidogrel 75 mg tablet 75 mg PO DAILY Qty: 90 RF: 3 Primary Care Provider: Agnieszka Degroot NP Referrals: Agnieszka Degroot NP, [facility] [Primary Care Provider] - 3-5 Days if not improving Disposition Disposition: Home, Self Care
[2021-05-29 23:32] LABS: Anion Gap 1 (5-15); BUN 23 mg/dL (7-18); BUN/Creat Ratio 13.7 RATIO (10-20); Calcium,Total 8.2 mg/dL (8.5-10.1); Chloride 112 mmol/L (98-107); Creatinine, Serum 1.68 mg/dL (0.55-1.02); EST Glomerular Filtration Rate 31 mL/min (>60); Est Glom Filt Rate - Afr Amer 38 mL/min (>60); Estimated Creatinine Clearance 21.48 ml/min; Glucose 78 mg/dL (74-106); Potassium 5.2 mmol/L (3.5-5.1); Sodium Level 142 mmol/L (136-145)
--- NOTE | 2021-05-29 23:34 | CT_ITS ---
STUDY: CT ABDOMEN AND PELVIS WITHOUT CONTRAST REASON FOR EXAM: Female, 80 years old. Kidney Stone RADIATION DOSAGE (If Supplied By Facility): CTDIvol = ( 23.22 ) mGy, DLP = ( 1107.91 ) mGycm TECHNIQUE: Transaxial images were obtained from the dome of the diaphragm to the symphysis pubis without oral contrast, and without intravenous contrast. Sagittal and coronal images were reconstructed. Individualized dose optimization techniques were used for this CT. COMPARISON: None. FINDINGS: The visualized lung bases are unremarkable. The previously demonstrated nodule at the right lung base is no longer accurately visualized. The visualized portions of the heart are within normal limits. Normal liver. The gallbladder is not visualized. The extrahepatic biliary system is unremarkable. Normal spleen. Normal pancreas. Normal bilateral adrenal glands. There are numerous vascular calcifications make it difficult to exclude a renal calculus. There are numerous calcifications near the floor the bladder which could represent distal ureteral stones. No definite hydronephrosis. There is a 4 cm cyst along the lateral margin of the right kidney. Normal left kidney. Normal visualized stomach. Normal small intestine. There is a colostomy at the right lower quadrant of the abdomen.. The appendix is visualized and appears normal. Normal abdominal aorta. Normal inferior vena cava. Normal retroperitoneum. Normal urinary bladder. Normal abdominal wall. Normal osseous structures. CT/Abdomen/Pelvis without Cont IMPRESSION: Multiple vascular calcifications are seen. There is a cyst at the lateral margin of the right kidney similar to the previous study of 11/22/2020. The small nodule seen at the right lung base previously is no longer identified. No definite hydronephrosis. Multiple vascular calcifications make it difficult to exclude a calcification associated with the ureter or renal pelvis. Electronically Signed: Nick Jay MD at 0:18 EDT ,
[2021-05-29 23:38] LABS: Absolute Lymphocyte Count 1.89 X10^3/uL (0.83-4.51); Basophil# 0.05 X10^3/uL; Basophil% 0.5 % (0-1); Eosinophil# 0.23 X10^3/uL; Eosinophils% 2.5 % (0-5); Hematocrit 38.6 % (37-47); Hemoglobin 11.9 g/dL (12.0-15.0); Lymphocyte # 1.89 X10^3/ul (0.83-4.51); Lymphocyte % 20.7 % (19-41); Mean Corp Hgb Conc 30.8 g/dL (32-36); Mean Corpuscular Hgb 29.8 pg (27.0-32.0); Mean Corpuscular Volume 96.5 fL (81-99); Mean Platelet Vol. 9.2 fl (6.2-12.0); Monocyte# 0.84 X10^3/uL; Monocyte% 9.2 % (0-10); NRBC Flagged by Analyzer 0 % (0-5); Neutrophil # 5.99 X10^3/uL (2.7-7.7); Neutrophil % 65.6 % (47-70); Platelet Count 251 K/mm3 (150-450); RBC Distribution Width CV 15.9 % (11.6-14.6); RBC Distribution Width SD 56.4 fl (35.1-43.9); White Blood Count 9.1 K/mm3 (4.4-11.0)
[2021-05-30 00:07] LABS: Color, Urine Yellow (Yellow); Glucose, Dipstick Normal (Normal); Ketone-Dipstick 5 mg/dl (Negative); Leukocyte Esterase-Dipstick 500 /ul (Negative); Mucous, Urine 0 SEEN /hpf (<or=2+); Nitrite-Dipstick Negative (Negative); Occult Blood-Urine Negative /ul (Negative); Protein-Dipstick 100 mg/dl (Negative); Red Blood Cells-Urine 0 SEEN /hpf (0-5); Urine Bilirubin Dipstick Negative (Negative); Urine Clarity Sl. Cloudy (Clear); Urine Urobilinogen Normal (Normal)
[2021-05-30 00:14] LABS: Squamous Epithelial Cells - UA 0-5 SEEN /hpf (5-10); White Blood Cells 10-25 SEEN /hpf (0-5)
[2021-05-30] MEDS: HYDROcodone Bitartrate/Apap 5/325 Tablet PO (00:14)
[2021-05-30 00:15] LABS: Bacteria 1+ /hpf (None Seen)
== END 2021-05-30 00:52 | disposition home or self-care (01) ==
PROVIDERS: Emergency Provider Emergency Medicine; PCP Registered Nurse; Visit Provider Emergency Medicine
DX: M54.9 Dorsalgia, unspecified (principal); R10.9 Unspecified abdominal pain; E87.5 Hyperkalemia; I25.10 Atherosclerotic heart disease of native coronary artery without angina pectoris; G47.33 Obstructive sleep apnea (adult) (pediatric); F17.210 Nicotine dependence, cigarettes, uncomplicated; Z95.5 Presence of coronary angioplasty implant and graft
CPT/HCPCS: 74176; 80048; 81001; 85025; 87086; 99284

== ENCOUNTER 2021-05-31 15:09 | Emergency (ER) | payer MEDICARE, SELFPAY ==
[2017-12-22 12:49] VITALS: BMI 49.4
[2021-05-31 15:10] VITALS: BP 139/49; PULSE 67; RESP 18; TEMP 36; O2SAT 96; BMI 40.2
--- NOTE | 2021-05-31 15:40 | ED.VIS.BACK ---
HPI History of Present Illness Chief Complaint: Flank Pain Narrative Narrative: 80-year-old female presenting with left lower back pain. She states has had since Tuesday. She had a normal CT done on Tuesday as well as normal lab work with exception of a slight increase in her creatinine. She states she has stage III kidney disease. She is seeing another physician at an outside facility for this. Patient denies history of kidney stones. She denies urinary complaints. She states she has a colostomy bag which is being emptied at normal intervals. No black or bloody stools. She is not vomiting. Patient has not had a fever or chills. Patient states that she has had pain in the area since Tuesday. She has an appointment to follow-up with Dr. Ireland next week. He did give her some [place] previously for pain that she was having in her knee which did help. She states she cannot get into her primary care physician for pain medication. No loss of bladder or bowel control. No urinary tension. [facility] Medical History Anemia Asthma Atherosclerosis of coronary artery of [place] heart without angina pectoris Carotid artery stenosis Chronic hypoxemic respiratory failure Chronic respiratory failure with hypoxia CKD (chronic kidney disease) COPD (chronic obstructive pulmonary disease) COVID-19 virus detected (11/12/20) Diabetes Essential (primary) hypertension History of diabetes mellitus, type II History of gastroesophageal reflux (GERD) Hyperlipidemia Ileostomy present Morbid obesity Nicotine dependence Obesities, morbid Obstructive sleep apnea JESSICA (obstructive sleep apnea) Stage 2 moderate COPD by GOLD classification 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) Stenosis of right carotid artery Tobacco abuse Transient hypotension VBI (vertebrobasilar insufficiency) Viral URI Home Medications citalopram 20 mg PO DAILY 02/28/13 [History Last Taken 02/25/20] albuterol sulfate 2 puff INHALATION Q6H PRN PRN 07/15/14 [History Last Taken 02/25/20] atorvastatin 40 mg PO QHS 08/17/18 [History Last Taken 02/24/20] metoprolol succinate 25 mg tablet,extended release 24 hr 12.5 mg PO DAILY tab 12/06/19 [History Last Taken 02/25/20] midodrine 5 mg tablet 2 tab PO Q8H tab 01/25/20 [History Last Taken 02/25/20 04:30] oxybutynin chloride 10 mg tablet,extended release 24 hr 10 mg PO DAILY 01/25/20 [History Last Taken 02/25/20] hydroxyzine HCl 25 mg PO QHS 02/25/20 [History Last Taken 02/24/20] pramipexole 1.5 mg PO TID PRN 02/25/20 [History Last Taken 02/25/20] loperamide 2 mg PO Q4H PRN PRN 02/26/20 [History Last Taken Unknown] beclomethasone dipropionate 80 mcg/actuation HFA breath activated aerosol 1 inh INHALATION BID 03/11/20 [History Last Taken Unknown] montelukast 10 mg tablet 10 mg PO QHS 03/11/20 [History Last Taken Unknown] omeprazole 40 mg capsule,delayed release 40 mg PO DAILY 03/11/20 [History Last Taken Unknown] nitroglycerin 0.4 mg sublingual tablet 0.4 mg SUBLINGUAL Q5M PRN #25 tab 08/04/20 [Rx Last Taken Unknown] ranolazine 1,000 mg tablet,extended release,12 hr 1,000 mg PO BID #60 tab 08/04/20 [Rx Last Taken Unknown] fluticasone furoate 2 mcg INHALATION DAILY 11/10/20 [History Last Taken Unknown] formoterol fumarate 2 ml INHALATION Q12H 11/10/20 [History Last Taken Unknown] ipratropium-albuterol 3 ml INHALATION Q6H PRN 11/10/20 [History Last Taken Unknown] nicotine 21 mg TRANSDERMAL DAILY #30 ea 11/24/20 [Rx Last Taken Unknown] furosemide 40 mg PO DAILY #30 tab 11/25/20 [Rx Last Taken Unknown] prednisone 10 mg PO DAILY #30 tab 11/25/20 [Rx Last Taken Unknown] ondansetron HCl [Zofran] 4 mg PO Q8H PRN #14 tab 01/14/21 [Rx Last Taken Unknown] clopidogrel 75 mg tablet 75 mg PO DAILY #90 tab 02/27/21 [Rx Last Taken Unknown] midodrine 5 mg PO BID 03/04/21 [History Last Taken Unknown] hydrocodone-acetaminophen 1 tab PO Q6H PRN 3 Days #10 tab 05/31/21 [Rx Last Taken Unknown] Allergy/AdvReac Type Severity Reaction Status Date / Time aspirin [ASA] Allergy Severe Hives Verified 05/31/21 15:10 ferrous sulfate Allergy Intermediate Hives Verified 05/31/21 15:10 bupropion [From Wellbutrin] Allergy headache Verified 05/31/21 15:10 codeine Allergy Hives Verified 05/31/21 15:10 meperidine HCl [From Demerol] Allergy Hives Verified 05/31/21 15:10 naproxen sodium Allergy Hives Verified 05/31/21 15:10 [From Anaprox] propoxyphene HCl Allergy Hives Verified 05/31/21 15:10 [From Darvon] Sulfa (Sulfonamide Allergy hives, Verified 05/31/21 15:10 Antibiotics) trouble breathing gabapentin AdvReac Intermediate Mental Verified 05/31/21 15:10 status change, foggy headed NSAIDS (Non-Steroidal AdvReac Hives Verified 05/31/21 15:10 Anti-Inflamma Family History Mother CVA (cerebral vascular accident) Father Asthma Hypertension High blood cholesterol level Arthritis Surgical History H/O bariatric surgery History of section History of cholecystectomy History of coronary artery stent placement (12/11/19) History of right knee joint replacement History of right-sided carotid endarterectomy (07/2014) left subclavian artery stent (03/2017) Social History Smoking Status: Current every day smoker tobacco type: cigarettes how long ago did patient quit smokin weeks ago second hand exposure: Yes alcohol intake: never substance use type: does not use caffeine: Yes Type: coffee Number of servings: 6 what type of physical activity do you participate in: none ROS ROS ED Constitutional Constitutional ED: Denies chills or fever(s) Eyes Eyes: Denies blurry vision or diplopia ENT ENT ED: Denies rhinorrhea or sore throat Cardiovascular Cardiovascular: Denies chest pain or palpitations Respiratory/Chest Respiratory/Chest: Denies dyspnea or sputum Gastrointestinal Gastrointestinal: Denies abdominal pain, nausea or vomiting Genitourinary Genitourinary ED: Denies dysuria or hematuria Musculoskeletal Musculoskeletal: Reports back pain; Denies arthralgias or myalgias Integumentary Denies rash Neurologic Neurologic: Denies headache(s) Psychiatric Psychiatric: Denies anxiety or depression EXAM Physical Exam Const Vital Signs: 05/31/21 15:10 05/31/21 15:25 Temperature 96.8 F L Temperature Source Temporal Pulse Rate 67 Respiratory Rate 18 Respiratory Effort Short of Breath Respiratory Pattern Normal Blood Pressure 139/49 H Blood Pressure Mean 79 Pulse Ox 96 Oxygen Delivery Method Room Air Positive obese General Appearance ED: NAD; Negative for pallor Nutritional Appearance: obese HEENT Reports moist mucous membranes Negative for trauma Eyes PERRL and EOMs intact bilaterally General Eye ED: Negative for pale conjunctiva or scleral icterus Resp normal respiratory effort and clear to auscultation bilaterally Cardio regular rate and regular rhythm Extremity Extremity Narrative: Tenderness to palpation over left gluteal region focally. No lumbar spinal tenderness, deformity, step-off. There is limitation with left hip extension secondary to pain in the left gluteal region. No bruising, rash, ecchymosis. Psych mental status grossly normal Skin General Skin Exam: Negative for jaundice or pallor MDM MDM MDM Narrative Medical decision making narrative: Patient presenting for reevaluation of her pain. She states that trouble sleeping secondary to pain at home. Patient had fairly normal work-up on Tuesday with exception of slight increase in her creatinine but does state that she has a history of stage III kidney disease and sees somebody at outside facility. Since her potassium was slightly elevated on her last visit I did give her a liter of IV fluids. I will recheck a BMP. Her urinalysis was negative at that time and her urine culture was negative. I do not believe she needs repeat. She had a CT of the abdomen pelvis which did not show any kidney stones and she has no history. Her exam is more consistent with a sciatic pain. She believes this is what it is as well. She request pain medication until she can see Dr. Ireland next week. She states he takes a half a [place] as needed twice a day. I rechecked her BMP and her creatinine improved as well as her GFR. Her potassium was normal at 4.7. Patient is discharged to follow-up with Dr. Ireland. Impression: 1. Sciatica Lab Data Attestation: I reviewed the patient's lab results. Labs: Laboratory Results - last 24 hr 05/31/21 15:30 Sodium 142 Potassium 4.7 Chloride 110 H Carbon Dioxide 30.0 Anion Gap 2 L BUN 19 H Creatinine 1.26 H Estim Creat Clear Calc 28.63 Est GFR (MDRD) Af Amer 53 L Est GFR (MDRD) Non-Af 44 L BUN/Creatinine Ratio 15.1 Glucose 82 Calcium 8.9 Discharge Plan Triage Chief Complaint: Flank Pain Other Complaint: Back ED Provider: Justino Parada Dx/Rx/DC Orders Instructions: ED Sciatica Prescriptions: New hydrocodone-acetaminophen 5-325 mg tablet 1 tab PO Q6H PRN (Reason: pain) 3 Days Qty: 10 RF: 0 No Action ranolazine 1,000 mg tablet extended release 12 hr 1,000 mg PO BID Qty: 60 RF: 11 nitroglycerin 0.4 mg tablet, sublingual 0.4 mg SUBLINGUAL Q5M PRN (Reason: Chest Pain) Qty: 25 RF: 3 oxybutynin chloride 10 mg tablet extended release 24hr 10 mg PO DAILY RF: 0 midodrine 5 mg tablet 2 tab PO Q8H RF: 0 beclomethasone dipropionate 80 mcg/actuation HFA aerosol breath activated 1 inh INHALATION BID RF: 0 omeprazole 40 mg capsule,delayed release(DR/EC) 40 mg PO DAILY RF: 0 citalopram 20 MG tablet 20 mg PO DAILY RF: 0 albuterol sulfate 1 PUFF inhaler 2 puff INHALATION Q6H PRN PRN (Reason: Sob &/Or Wheezing) RF: 0 montelukast 10 mg tablet 10 mg PO QHS RF: 0 atorvastatin 40 MG tablet 40 mg PO QHS RF: 0 hydroxyzine HCl 25 MG tablet 25 mg PO QHS RF: 0 pramipexole 1.5 MG tablet 1.5 mg PO TID PRN (Reason: RESTLESS LEGS) RF: 0 loperamide 2 MG capsule 2 mg PO Q4H PRN PRN (Reason: Diarrhea) RF: 0 ipratropium-albuterol 0.5 mg-3 mg(2.5 mg base)/3 mL Solution For Nebulization 3 ml INHALATION Q6H PRN (Reason: sob) RF: 0 formoterol fumarate 20 mcg/2 mL Solution For Nebulization 2 ml INHALATION Q12H RF: 0 fluticasone furoate 50 mcg/actuation Blister With Device 2 mcg INHALATION DAILY RF: 0 nicotine 21 mg/24 hr Patch 24 Hour 21 mg transdermal DAILY Qty: 30 RF: 0 prednisone 10 mg tablet 10 mg PO DAILY Qty: 30 RF: 0 furosemide 40 MG tablet 40 mg PO DAILY Qty: 30 RF: 0 ondansetron HCl [Zofran] 4 mg tablet 4 mg PO Q8H PRN (Reason: nausea and vomiting) Qty: 14 RF: 0 midodrine 5 mg tablet 5 mg PO BID RF: 0 metoprolol succinate 25 mg tablet extended release 24 hr 12.5 mg PO DAILY RF: 0 clopidogrel 75 mg tablet 75 mg PO DAILY Qty: 90 RF: 3 Primary Care Provider: Agnieszka Degroot NP Referrals: Mamadou Ireland DO [NON-STAFF] - As Needed Agnieszka Degroot NP, [employer]CHNICIAN-[employer] [Primary Care Provider] - Disposition Disposition: Home, Self Care
[2021-05-31] MEDS: Morphine 4 MG/ML Syringe IV (15:51)
[2021-05-31] MEDS: 0.9% Normal Saline 1,000 ML 999 ML IV (15:52)
[2021-05-31] MEDS: Ondansetron 4 MG/2 ML Vial IV (15:52)
[2021-05-31 16:03] LABS: Anion Gap 2 (5-15); BUN 19 mg/dL (7-18); BUN/Creat Ratio 15.1 RATIO (10-20); Calcium,Total 8.9 mg/dL (8.5-10.1); Chloride 110 mmol/L (98-107); Creatinine, Serum 1.26 mg/dL (0.55-1.02); EST Glomerular Filtration Rate 44 mL/min (>60); Est Glom Filt Rate - Afr Amer 53 mL/min (>60); Estimated Creatinine Clearance 28.63 ml/min; Glucose 82 mg/dL (74-106); Potassium 4.7 mmol/L (3.5-5.1); Sodium Level 142 mmol/L (136-145)
[2021-05-31 16:54] VITALS: BP 142/78
== END 2021-05-31 16:55 | disposition home or self-care (01) ==
PROVIDERS: Emergency Provider Student in an Organized Health Care Education/Training Program; PCP Registered Nurse; Visit Provider Student in an Organized Health Care Education/Training Program
DX: M54.30 Sciatica, unspecified side (principal); I25.10 Atherosclerotic heart disease of native coronary artery without angina pectoris; G47.33 Obstructive sleep apnea (adult) (pediatric); F17.210 Nicotine dependence, cigarettes, uncomplicated; E66.9 Obesity, unspecified; Z86.16 Personal history of COVID-19; Z95.5 Presence of coronary angioplasty implant and graft
CPT/HCPCS: 80048; 96374; 96375; 99283; J7030; A4216; J2405

== ENCOUNTER 2021-06-14 19:06 | Emergency (ER) | payer MEDICARE, SELFPAY ==
[2017-12-22 12:49] VITALS: BMI 49.4
[2021-06-14 19:07] VITALS: BP 124/78; PULSE 70; RESP 15; TEMP 37.1; O2SAT 95; BMI 40.2
[2021-06-14] MEDS: Fluconazole 100 MG Tablet 200 MG PO (20:28)
[2021-06-14 21:43] VITALS: PULSE 80; RESP 16
--- NOTE | 2021-06-14 22:01 | ED.VIS.LOWEX ---
HPI History of Present Illness Chief Complaint: Wound Informant: patient and family Narrative Narrative: Patient presents secondary to concern for yeast infection on her abdomen and ileostomy bag not sticking. Over the past 3 days family has noticed redness around her ileostomy site. They believe she has a yeast infection. Wound is extremely excoriated and tender. In light of this they are having difficulty getting the ostomy bag to appropriately adhere to her skin. [facility] Medical History Anemia Asthma Atherosclerosis of coronary artery of [place] heart without angina pectoris Carotid artery stenosis Chronic hypoxemic respiratory failure Chronic respiratory failure with hypoxia CKD (chronic kidney disease) COPD (chronic obstructive pulmonary disease) COVID-19 virus detected (11/12/20) Diabetes Essential (primary) hypertension History of diabetes mellitus, type II History of gastroesophageal reflux (GERD) Hyperlipidemia Ileostomy present Morbid obesity Nicotine dependence Obesities, morbid Obstructive sleep apnea JESSICA (obstructive sleep apnea) Stage 2 moderate COPD by GOLD classification 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) Stenosis of right carotid artery Tobacco abuse Transient hypotension VBI (vertebrobasilar insufficiency) Viral URI Home Medications citalopram 20 mg PO DAILY 02/28/13 [History Last Taken 02/25/20] albuterol sulfate 2 puff INHALATION Q6H PRN PRN 07/15/14 [History Last Taken 02/25/20] atorvastatin 40 mg PO QHS 08/17/18 [History Last Taken 02/24/20] metoprolol succinate 25 mg tablet,extended release 24 hr 12.5 mg PO DAILY tab 12/06/19 [History Last Taken 02/25/20] midodrine 5 mg tablet 2 tab PO Q8H tab 01/25/20 [History Last Taken 02/25/20 04:30] oxybutynin chloride 10 mg tablet,extended release 24 hr 10 mg PO DAILY 01/25/20 [History Last Taken 02/25/20] hydroxyzine HCl 25 mg PO QHS 02/25/20 [History Last Taken 02/24/20] pramipexole 1.5 mg PO TID PRN 02/25/20 [History Last Taken 02/25/20] loperamide 2 mg PO Q4H PRN PRN 02/26/20 [History Last Taken Unknown] beclomethasone dipropionate 80 mcg/actuation HFA breath activated aerosol 1 inh INHALATION BID 03/11/20 [History Last Taken Unknown] montelukast 10 mg tablet 10 mg PO QHS 03/11/20 [History Last Taken Unknown] omeprazole 40 mg capsule,delayed release 40 mg PO DAILY 03/11/20 [History Last Taken Unknown] nitroglycerin 0.4 mg sublingual tablet 0.4 mg SUBLINGUAL Q5M PRN #25 tab 08/04/20 [Rx Last Taken Unknown] ranolazine 1,000 mg tablet,extended release,12 hr 1,000 mg PO BID #60 tab 08/04/20 [Rx Last Taken Unknown] fluticasone furoate 2 mcg INHALATION DAILY 11/10/20 [History Last Taken Unknown] formoterol fumarate 2 ml INHALATION Q12H 11/10/20 [History Last Taken Unknown] ipratropium-albuterol 3 ml INHALATION Q6H PRN 11/10/20 [History Last Taken Unknown] nicotine 21 mg TRANSDERMAL DAILY #30 ea 11/24/20 [Rx Last Taken Unknown] furosemide 40 mg PO DAILY #30 tab 11/25/20 [Rx Last Taken Unknown] prednisone 10 mg PO DAILY #30 tab 11/25/20 [Rx Last Taken Unknown] ondansetron HCl [Zofran] 4 mg PO Q8H PRN #14 tab 01/14/21 [Rx Last Taken Unknown] clopidogrel 75 mg tablet 75 mg PO DAILY #90 tab 02/27/21 [Rx Last Taken Unknown] midodrine 5 mg PO BID 03/04/21 [History Last Taken Unknown] hydrocodone-acetaminophen 1 tab PO Q6H PRN 3 Days #10 tab 05/31/21 [Rx Last Taken Unknown] fluconazole [Diflucan] 200 mg PO .weekly #3 tab 06/14/21 [Rx Last Taken Unknown] nystatin 1 applic TOPICAL DAILY #60 g 06/14/21 [Rx Last Taken Unknown] Allergy/AdvReac Type Severity Reaction Status Date / Time aspirin [ASA] Allergy Severe Hives Verified 06/14/21 19:13 ferrous sulfate Allergy Intermediate Hives Verified 06/14/21 19:13 bupropion [From Wellbutrin] Allergy headache Verified 06/14/21 19:13 codeine Allergy Hives Verified 06/14/21 19:13 meperidine HCl [From Demerol] Allergy Hives Verified 06/14/21 19:13 naproxen sodium Allergy Hives Verified 06/14/21 19:13 [From Anaprox] propoxyphene HCl Allergy Hives Verified 06/14/21 19:13 [From Darvon] Sulfa (Sulfonamide Allergy hives, Verified 06/14/21 19:13 Antibiotics) trouble breathing gabapentin AdvReac Intermediate Mental Verified 06/14/21 19:13 status change, foggy headed NSAIDS (Non-Steroidal AdvReac Hives Verified 06/14/21 19:13 Anti-Inflamma Family History Mother CVA (cerebral vascular accident) Father Asthma Hypertension High blood cholesterol level Arthritis Surgical History H/O bariatric surgery History of section History of cholecystectomy History of coronary artery stent placement (12/11/19) History of right knee joint replacement History of right-sided carotid endarterectomy (07/2014) left subclavian artery stent (03/2017) Social History Smoking Status: Current every day smoker tobacco type: cigarettes how long ago did patient quit smokin weeks ago second hand exposure: Yes alcohol intake: never substance use type: does not use caffeine: Yes Type: coffee Number of servings: 6 what type of physical activity do you participate in: none ROS ROS ED Constitutional Constitutional ED: Denies chills or fever(s) Eyes Eyes: Denies change in vision ENT ENT ED: Denies sore throat Cardiovascular Cardiovascular: Denies chest pain Respiratory/Chest Respiratory/Chest: Denies cough or dyspnea Gastrointestinal Gastrointestinal: Reports abdominal pain; Denies nausea or vomiting Musculoskeletal Musculoskeletal: Denies back pain Integumentary Reports rash Neurologic Neurologic: Denies headache(s) or weakness Allergic/Immunologic Allergic/Immunologic ED: Denies urticaria EXAM Physical Exam Const Vital Signs: 06/14/21 19:07 06/14/21 21:43 06/14/21 22:11 Temperature 98.7 F Temperature Source Temporal Pulse Rate 70 80 79 Respiratory Rate 15 16 16 Blood Pressure 124/78 H Blood Pressure Mean 93 Pulse Ox 95 Oxygen Delivery Method Room Air Positive well nourished and well developed General Appearance ED: well developed HEENT normocephalic Neck full ROM Chest Wall inspection of chest normal and palpation of chest normal Resp normal respiratory effort and clear to auscultation bilaterally Cardio regular rate and regular rhythm GI GI Narrative: Fluid leaking from ileostomy site. Large area of erythema measuring approximately 19 cm in diameter over the anterior abdomen consistent with tinea skin infection. Palpation: soft Extremity normal to inspection Neuro oriented x3 Sensorium / Orientation: alert Psych mental status grossly normal MDM MDM MDM Narrative Medical decision making narrative: Patient given oral dose of Diflucan. MedSurg nurse did come down to help with readhering her ostomy bag. This was placed and a abdominal binder was provided to help hold it in place. Patient given prescription for weekly Diflucan x3 additional doses as well as nystatin powder. Wound care as discussed. Discharge Plan Triage Chief Complaint: Wound ED Provider: Vero Montenegro Dx/Rx/DC Orders Clinical Impression: Nilsa infection Instructions: ED Fungal Skin Infection (Tinea) Prescriptions: New fluconazole [Diflucan] 200 mg tablet 200 mg PO .weekly Qty: 3 RF: 0 nystatin 100,000 unit/gram powder 1 applic topical DAILY Qty: 60 RF: 0 No Action ranolazine 1,000 mg tablet extended release 12 hr 1,000 mg PO BID Qty: 60 RF: 11 nitroglycerin 0.4 mg tablet, sublingual 0.4 mg SUBLINGUAL Q5M PRN (Reason: Chest Pain) Qty: 25 RF: 3 oxybutynin chloride 10 mg tablet extended release 24hr 10 mg PO DAILY RF: 0 midodrine 5 mg tablet 2 tab PO Q8H RF: 0 beclomethasone dipropionate 80 mcg/actuation HFA aerosol breath activated 1 inh INHALATION BID RF: 0 omeprazole 40 mg capsule,delayed release(DR/EC) 40 mg PO DAILY RF: 0 citalopram 20 MG tablet 20 mg PO DAILY RF: 0 albuterol sulfate 1 PUFF inhaler 2 puff INHALATION Q6H PRN PRN (Reason: Sob &/Or Wheezing) RF: 0 montelukast 10 mg tablet 10 mg PO QHS RF: 0 atorvastatin 40 MG tablet 40 mg PO QHS RF: 0 hydroxyzine HCl 25 MG tablet 25 mg PO QHS RF: 0 pramipexole 1.5 MG tablet 1.5 mg PO TID PRN (Reason: RESTLESS LEGS) RF: 0 loperamide 2 MG capsule 2 mg PO Q4H PRN PRN (Reason: Diarrhea) RF: 0 ipratropium-albuterol 0.5 mg-3 mg(2.5 mg base)/3 mL Solution For Nebulization 3 ml INHALATION Q6H PRN (Reason: sob) RF: 0 formoterol fumarate 20 mcg/2 mL Solution For Nebulization 2 ml INHALATION Q12H RF: 0 fluticasone furoate 50 mcg/actuation Blister With Device 2 mcg INHALATION DAILY RF: 0 nicotine 21 mg/24 hr Patch 24 Hour 21 mg transdermal DAILY Qty: 30 RF: 0 prednisone 10 mg tablet 10 mg PO DAILY Qty: 30 RF: 0 furosemide 40 MG tablet 40 mg PO DAILY Qty: 30 RF: 0 ondansetron HCl [Zofran] 4 mg tablet 4 mg PO Q8H PRN (Reason: nausea and vomiting) Qty: 14 RF: 0 midodrine 5 mg tablet 5 mg PO BID RF: 0 hydrocodone-acetaminophen 5-325 mg tablet 1 tab PO Q6H PRN (Reason: pain) 3 Days Qty: 10 RF: 0 metoprolol succinate 25 mg tablet extended release 24 hr 12.5 mg PO DAILY RF: 0 clopidogrel 75 mg tablet 75 mg PO DAILY Qty: 90 RF: 3 Primary Care Provider: Agnieszka Degroot NP Referrals: Agnieszka Degroot NP, [employer] WORKER-[employer] [Primary Care Provider] - Disposition Disposition: Home, Self Care Discharge Date/Time: 06/14/21 22:13
[2021-06-14 22:11] VITALS: PULSE 79; RESP 16
== END 2021-06-14 22:13 | disposition home or self-care (01) ==
PROVIDERS: Emergency Provider Emergency Medicine; PCP Registered Nurse; Visit Provider Emergency Medicine
DX: B37.2 Candidiasis of skin and nail (principal); Z93.2 Ileostomy status; J44.9 Chronic obstructive pulmonary disease, unspecified; E11.22 Type 2 diabetes mellitus with diabetic chronic kidney disease; Z68.41 Body mass index [BMI] 40.0-44.9, adult; I12.9 Hypertensive chronic kidney disease with stage 1 through stage 4 chronic kidney disease, or unspecified chronic kidney disease; E78.5 Hyperlipidemia, unspecified; I25.10 Atherosclerotic heart disease of native coronary artery without angina pectoris; N18.9 Chronic kidney disease, unspecified; F17.210 Nicotine dependence, cigarettes, uncomplicated; Z79.899 Other long term (current) drug therapy; Z98.84 Bariatric surgery status; G47.33 Obstructive sleep apnea (adult) (pediatric); E66.9 Obesity, unspecified; K21.9 Gastro-esophageal reflux disease without esophagitis; Z86.16 Personal history of COVID-19; Z79.02 Long term (current) use of antithrombotics/antiplatelets
CPT/HCPCS: 99282

== ENCOUNTER → 2021-12-16 | Outpatient (CLI) | payer MEDICARE, SELFPAY ==
[2017-12-22 12:49] VITALS: BMI 49.4
--- NOTE | 2021-12-16 16:15 | RAD_ITS ---
STUDY: X-RAY CHEST REASON FOR EXAM: Female, 81 years old. Dyspnea. History of pneumonia TECHNIQUE: PA and lateral views of the chest. COMPARISON: 03/04/2021 FINDINGS: The lungs are clear and expanded. No mass or infiltrate. There is no demonstrated pleural abnormality. Normal size heart. Normal mediastinum and chloe. Normal visualized pulmonary arteries. There is atherosclerotic calcification of the aortic arch with tortuosity. There are diffuse degenerative changes of the visualized thoracic spine. There is degenerative osteoarthritis of the bilateral shoulders. There is no demonstrated abnormality of the visualized soft tissue structures of the upper abdomen. RAD/Chest PA and Lateral IMPRESSION: Degenerative changes, as described above. No demonstrated acute cardiopulmonary process. Electronically Signed: Umair Hernandez DO at 16:28 EDT ,
[2021-12-16 17:30] LABS: Absolute Lymphocyte Count 1.89 X10^3/uL (0.83-4.51); Absolute Neutrophil Count 7.5 X10^3/uL (2.0-7.7); Basophil# 0.04 X10^3/uL; Basophil% 0.4 % (0-1); Eosinophil# 0.24 X10^3/uL; Eosinophils% 2.3 % (0-5); Hemoglobin 12.5 g/dL (12.0-15.0); Lymphocyte # 1.89 X10^3/ul (0.83-4.51); Lymphocyte % 17.8 % (19-41); Mean Corp Hgb Conc 32.1 g/dL (32-36); Mean Corpuscular Hgb 32.6 pg (27.0-32.0); Mean Corpuscular Volume 101.8 fL (81-99); Monocyte% 8.5 % (0-10); NRBC Flagged by Analyzer 0 % (0-5); Neutrophil # 7.48 X10^3/uL (2.7-7.7); Neutrophil % 70.2 % (47-70); Platelet Count 241 K/mm3 (150-450); RBC Distribution Width CV 14.6 % (11.6-14.6); RBC Distribution Width SD 54.4 fl (35.1-43.9); Red Blood Count 3.83 M/mm3 (4.2-5.4); White Blood Count 10.6 K/mm3 (4.4-11.0)
[2021-12-16 17:35] LABS: BNP,B-Type NATRIURETIC PEPTIDE 83.9 pg/mL (0-100)
[2021-12-16 18:13] LABS: Anion Gap 3 (5-15); BUN 20 mg/dL (7-18); BUN/Creat Ratio 16.1 RATIO (10-20); Calcium,Total 8.8 mg/dL (8.5-10.1); Chloride 113 mmol/L (98-107); Creatinine, Serum 1.24 mg/dL (0.55-1.02); EST Glomerular Filtration Rate 44 mL/min (>60); Est Glom Filt Rate - Afr Amer 54 mL/min (>60); Glucose 68 mg/dL (74-106); Magnesium 1.9 mg/dL (1.6-2.6); Potassium 4.6 mmol/L (3.5-5.1); Sodium Level 143 mmol/L (136-145); T4 Free Direct 0.87 ng/dL (0.76-1.46)
== END | disposition home or self-care (01) ==
PROVIDERS: PCP Registered Nurse; Referring Provider Nurse Practitioner Gerontology; Visit Provider Nurse Practitioner Gerontology
DX: R06.00 Dyspnea, unspecified (principal); R00.2 Palpitations
CPT/HCPCS: 36415; 71046; 80048; 83735; 83880; 84439; 84443; 85025

== ENCOUNTER → 2022-01-04 | Outpatient (CLI) | payer MEDICARE, SELFPAY ==
[2017-12-22 12:49] VITALS: BMI 49.4
--- NOTE | 2022-01-04 13:01 | ECHOD_ITS ---
Reason For Study: Dyspnea/SOB, CP Procedure This was a 2D Doppler, Color Flow transthoracic echocardiogram. Exam performed in department. Left Ventricle Normal LV size. Left ventricular systolic function is normal. The estimated ejection fraction is 60 %. Stage 1 diastolic dysfunction. No regional wall motion abnormalities noted. Right Ventricle Normal RV size. Normal systolic function. Atria The left atrium is mildly enlarged. Normal right atrium. Mitral Valve There is mild to moderate mitral annular calcification. Mild (1+) eccentric mitral valve insufficiency. Tricuspid Valve Normal tricuspid valve. Pulmonic Valve Normal pulmonic valve. Great Vessels Normal aortic root. The pulmonary artery is normal size. Normal inferior vena cava. Pericardium/Pleural No pericardial effusion. MMode/2D Measurements & Calculations LVIDd: 4.9 cm IVSd: 1.4 cm LA dimension: 3.9 cm LVIDs: 2.9 cm LVPWd: 1.0 cm RVDd: 4.1 cm FS: 39.9 % LAV(MOD-bp): 65.1 ml LA A4 area: 23.0 cm2 RA A4 area: 17.9 cm2 LAV(MOD-bp) Indexed: 34.9 ml/m2 LAV(MOD-sp2): 53.5 ml LAV(MOD-sp4): 73.5 ml Time Measurements MV dec time: 0.20 sec Doppler Measurements & Calculations MV E max vicente: 73.5 cm/sec Lat Peak E' Vicente: 4.7 cm/sec Med Peak E' Vicente: 5.3 cm/sec MV A max vicente: 82.9 cm/sec E/E' lat: 15.8 E/E' med: 14.0 MV E/A: 0.89 MV V2 max: 106.1 cm/sec MV P1/2t max vicente: 95.9 cm/sec Ao V2 max: 156.2 cm/sec MV max P.5 mmHg MV P1/2t: 80.0 msec Ao max P.8 mmHg MV V2 mean: 60.0 cm/sec Ao V2 mean: 118.0 cm/sec MV mean P.7 mmHg MV dec slope: 351.3 cm/sec2 Ao mean P.2 mmHg MV V2 VTI: 32.5 cm MVA(P1/2t): 2.8 cm2 Ao V2 VTI: 42.9 cm LV V1 max: 87.5 cm/sec PA V2 max: 96.1 cm/sec LV V1 max P.1 mmHg LV V1 mean P.1 mmHg LV V1 mean: 70.1 cm/sec LV V1 VTI: 23.5 cm ECHO/Echo Complete Interpretation Summary Normal LV size. Left ventricular systolic function is normal. The estimated ejection fraction is 60 %. Stage 1 diastolic dysfunction. The left atrium is mildly enlarged. There is mild to moderate mitral annular calcification. Mild (1+) eccentric mitral valve insufficiency. Ordering Physician: Binta Mendoza Referring Physician: Agnieszka Degroot Performed By: Marciano Luis RCS
== END | disposition home or self-care (01) ==
LOC: CVS 13:00
PROVIDERS: PCP Registered Nurse; Referring Provider Nurse Practitioner Gerontology; Visit Provider Nurse Practitioner Gerontology
DX: R06.02 Shortness of breath (principal); R07.9 Chest pain, unspecified
CPT/HCPCS: 93306

== ENCOUNTER 2022-01-11 18:09 | Emergency (ER) | payer MEDICARE, SELFPAY ==
[2017-12-22 12:49] VITALS: BMI 49.4
[2022-01-11] VITALS (8 sets, daily range): BP systolic 94–116; BP diastolic 56–78; PULSE 64–84; RESP 16–22; TEMP 36.4–36.6; O2SAT 89–96; BMI 36.6
--- NOTE | 2022-01-11 18:16 | ED.RN ---
When pt arrived to triage room O2 88-89%, after getting pts vitals and checked in O2 up to 95-96% on RA.
[2022-01-11] MEDS: Ipratropium/Albuterol Sulfate 3 ML AMPUL.NEB INHALATION (19:16)
[2022-01-11] MEDS: Albuterol 2.5 MG/3 ML VIAL.NEB. INHALATION (19:16)
--- NOTE | 2022-01-11 19:25 | RAD_ITS ---
INDICATION: Cough. EXAMINATION/TECHNIQUE: X-RAY - XR Chest 1 View COMPARISON: December 16, 2021. FINDINGS: LINES/DEVICES: None. LUNGS: There is chronic interstitial changes in lungs without acute infiltrate or mass. MEDIASTINUM AND CARDIOVASCULAR STRUCTURES: Cardiac silhouette not enlarged. Central airways and mediastinal contour are unremarkable. Atherosclerotic changes of the thoracic aorta are again seen. BONES AND SOFT TISSUES: Stable degenerative changes of the thoracic spine and shoulders. RAD/Chest 1 View (Portable) IMPRESSION: No acute cardiopulmonary disease or major interval change. Electronically Signed: Umair Hernandez DO at 19:53 EDT ,
--- NOTE | 2022-01-11 19:27 | ED.VIS.DYS ---
HPI History of Present Illness Chief Complaint: Shortness of Breath Narrative Narrative: 81-year-old female presented with cough, shortness of breath, chills. She denies any fever. She states that symptom onset was Tuesday. She states she does not have any chest pain but she does feel as if she is short of breath. She does have COPD and her family started giving her breathing treatments and this seems to help a little bit. She normally wears 2.5 L of oxygen via nasal cannula for sleeping and for ambulating. She also reports that her grandchildren been around and they have all had ear infections and croup. She tested herself for COVID at home but this was negative. Patient went to the urgent care today and walked into the urgent care without her oxygen on and was noted to have an O2 sat of 90%. For this reason she was sent to the emergency room for evaluation. Patient does state that she does not have any nausea or vomiting but this has decreased p.o. intake versus not hungry. She denies urinary complaints, diarrhea or constipation. [facility] Medical History Anemia Asthma Atherosclerosis of coronary artery of [place] heart without angina pectoris Carotid artery stenosis Chronic hypoxemic respiratory failure Chronic respiratory failure with hypoxia CKD (chronic kidney disease) COPD (chronic obstructive pulmonary disease) COVID-19 virus detected (11/12/20) Diabetes Essential (primary) hypertension History of diabetes mellitus, type II History of gastroesophageal reflux (GERD) Hyperlipidemia Ileostomy present Morbid obesity Nicotine dependence Obesities, morbid Obstructive sleep apnea JESSICA (obstructive sleep apnea) Stage 2 moderate COPD by GOLD classification 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) Stenosis of right carotid artery Tobacco abuse Transient hypotension VBI (vertebrobasilar insufficiency) Viral URI Home Medications citalopram 20 mg tablet 20 mg PO DAILY depression 02/28/13 [History Last Taken 02/25/20] albuterol sulfate 90 mcg/actuation aerosol inhaler 2 puff inhalation Q6H PRN PRN Sob &/Or Wheezing 07/15/14 [History Last Taken 02/25/20] atorvastatin 40 mg tablet 40 mg PO QHS CHOLESTEROL 08/17/18 [History Last Taken 02/24/20] metoprolol succinate 25 mg tablet,extended release 24 hr 12.5 mg PO DAILY BP 12/06/19 [History Last Taken 02/25/20] oxybutynin chloride 10 mg tablet,extended release 24 hr 10 mg PO DAILY BLADDER 01/25/20 [History Last Taken 02/25/20] hydroxyzine HCl 25 mg tablet 25 mg PO QHS SLEEP 02/25/20 [History Last Taken 02/24/20] montelukast 10 mg tablet 10 mg PO QHS Allergies 03/11/20 [History Last Taken Unknown] omeprazole 40 mg capsule,delayed release 40 mg PO DAILY 03/11/20 [History Last Taken Unknown] fluticasone furoate 50 mcg/actuation blister powder for inhalation 2 mcg inhalation DAILY 11/10/20 [History Last Taken Unknown] formoterol fumarate 20 mcg/2 mL solution for nebulization 2 ml inhalation Q12H 11/10/20 [History Last Taken Unknown] clopidogrel 75 mg tablet 75 mg PO DAILY BLOOD THINNER #90 tabs 02/27/21 [Rx Last Taken Unknown] nystatin 100,000 unit/gram topical powder 1 applic topical DAILY #60 grams 06/14/21 [Rx Last Taken Unknown] budesonide 0.5 mg/2 mL suspension for nebulization 0.5 mg inhalation BID 12/16/21 [History Last Taken Unknown] fludrocortisone 0.1 mg tablet 0.05 mg PO QMWF 12/16/21 [History Last Taken Unknown] fluticasone propionate 50 mcg/actuation nasal spray,suspension 2 spray intranasal DAILY 12/16/21 [History Last Taken Unknown] furosemide 40 mg tablet 20 mg PO DAILY 12/16/21 [History Last Taken Unknown] ipratropium 0.5 mg-albuterol 3 mg (2.5 mg base)/3 mL nebulization soln 3 ml inhalation 4X/DAY sob 12/16/21 [History Last Taken Unknown] loperamide 2 mg capsule 4 mg PO BID Diarrhea 12/16/21 [History Last Taken Unknown] midodrine 5 mg tablet 10 mg PO BID BP 12/16/21 [History Last Taken Unknown] nitroglycerin 0.4 mg sublingual tablet 0.4 mg sublingual Q5-15M PRN chest pain #25 tabs 12/16/21 [Rx Last Taken Unknown] pantoprazole 40 mg tablet,delayed release 40 mg PO BID 12/16/21 [History Last Taken Unknown] pramipexole 1 mg tablet 0.5 mg PO QHS 12/16/21 [History Last Taken Unknown] pregabalin 50 mg capsule 50 mg PO QHS 12/16/21 [History Last Taken Unknown] ranolazine 500 mg tablet,extended release,12 hr 500 mg PO BID 12/24/21 [History Last Taken Unknown] Allergy/AdvReac Type Severity Reaction Status Date / Time aspirin [ASA] Allergy Severe Hives Verified 12/16/21 15:36 ferrous sulfate Allergy Intermediate Hives Verified 12/16/21 15:36 bupropion [From Wellbutrin] Allergy headache Verified 12/16/21 15:36 codeine Allergy Hives Verified 12/16/21 15:36 meperidine HCl [From Demerol] Allergy Hives Verified 12/16/21 15:36 naproxen sodium Allergy Hives Verified 12/16/21 15:36 [From Anaprox] propoxyphene HCl Allergy Hives Verified 12/16/21 15:36 [From Darvon] Sulfa (Sulfonamide Allergy hives, Verified 12/16/21 15:36 Antibiotics) trouble breathing gabapentin AdvReac Intermediate Mental Verified 12/16/21 15:36 status change, foggy headed NSAIDS (Non-Steroidal AdvReac Hives Verified 12/16/21 15:36 Anti-Inflamma Family History Mother CVA (cerebral vascular accident) Father Asthma Hypertension High blood cholesterol level Arthritis Surgical History H/O bariatric surgery History of section History of cholecystectomy History of coronary artery stent placement (12/11/19) History of right knee joint replacement History of right-sided carotid endarterectomy (07/2014) left subclavian artery stent (03/2017) Social History Smoking Status: Current every day smoker tobacco type: cigarettes second hand exposure: Yes alcohol intake: never substance use type: does not use caffeine: Yes Type: coffee Number of servings: 6 and tea Number of servings: 2 what type of physical activity do you participate in: none ROS ROS ED Constitutional Constitutional ED: Reports chills Eyes Eyes: Denies change in vision or diplopia ENT ENT ED: Denies rhinorrhea or sore throat Cardiovascular Cardiovascular: Denies chest pain or palpitations Respiratory/Chest Respiratory/Chest: Reports cough, dyspnea and dyspnea on exertion Gastrointestinal Gastrointestinal: Denies abdominal pain, nausea or vomiting Genitourinary Genitourinary ED: Denies dysuria or hematuria Musculoskeletal Musculoskeletal: Reports myalgias; Denies arthralgias Integumentary Denies abscess or Abrasions Neurologic Neurologic: Denies headache(s) or paresthesias Psychiatric Psychiatric: Denies anxiety or depression EXAM Physical Exam Const Vital Signs: 01/11/22 18:10 01/11/22 18:13 01/11/22 18:57 Temperature 97.6 F L Temperature Source Temporal Pulse Rate 75 Respiratory Rate 22 H Respiratory Effort Short of Breath Respiratory Depth Normal Respiratory Pattern Normal Blood Pressure 116/70 Blood Pressure Mean 85 Pulse Ox 89 96 Oxygen Delivery Method Room Air Room Air Nasal Cannula Oxygen Flow Rate (L/min) 3 01/11/22 18:13 01/11/22 19:10 01/11/22 19:32 Temperature 97.6 F L 97.8 F Temperature Source Temporal Temporal Pulse Rate 75 78 84 Respiratory Rate 22 H 16 16 Respiratory Effort Respiratory Depth Respiratory Pattern Blood Pressure 116/70 115/78 95/56 L Blood Pressure Mean 85 90 69 Pulse Ox 96 95 94 Oxygen Delivery Method Nasal Cannula Nasal Cannula Nasal Cannula Oxygen Flow Rate (L/min) 3 3 2 01/11/22 19:16 01/11/22 19:16 Temperature Temperature Source Pulse Rate 71 Respiratory Rate 22 H 22 H Respiratory Effort Short of Breath Respiratory Depth Shallow Respiratory Pattern Tachypnea Tachypnea Blood Pressure Blood Pressure Mean Pulse Ox 95 Oxygen Delivery Method Nasal Cannula Oxygen Flow Rate (L/min) 2 Positive well nourished General Appearance ED: NAD; Negative for pallor HEENT Reports moist mucous membranes atraumatic Eyes PERRL and EOMs intact bilaterally Neck no lymphadenopathy, supple and no meningeal signs Resp normal respiratory effort and clear to auscultation bilaterally Auscultation: wheezes expiratory wheezes Cardio regular rate and regular rhythm GI non-tender Back/Spine no CVA tenderness Extremity normal to inspection Neuro oriented x3 and CN's II-XII intact bilaterally Sensorium / Orientation: alert Motor Exam: strength 5/5 throughout and general weakness Psych mental status grossly normal Skin no wounds General Skin Exam: Negative for jaundice or pallor MDM MDM MDM Narrative Medical decision making narrative: Patient presenting with cough and shortness of breath. She said since Tuesday. She was seen in urgent care and told that she likely tested for COVID too soon. They did not test her for anything there. Patient was referred to the ER because she was hypoxic however she walked into the urgent care without her oxygen which she needs for ambulation. She wears 2.5 L at baseline. She initially was placed on 3 L of oxygen. When I examined her she was not hypoxic. She was well-appearing. She is in no acute distress. She did have wheezing bilaterally and was given breathing treatments Solu-Medrol. I obtained blood work and her CBC shows no leukocytosis. Her hemoglobin and hematocrit are stable. Platelets are normal. Creatinine slightly elevated at 1.43. She was given 500 cc of normal saline. Chest x-ray on my interpretation shows no acute cardiopulmonary process and the radiologist agree. After breathing treatments the patient was ambulated and she maintained a normal O2 sats on her baseline oxygen. Nursing staff reports 9 93 to 96%. She feels well. I will place her on a prednisone burst and she is to continue her breathing treatments at home. Patient stable for discharge at this time. Impression: 1. COPD exacerbation 2. Cough 3. Distal Lab Data Labs: Laboratory Results - last 24 hr 01/11/22 01/11/22 18:47 18:47 WBC 10.5 RBC 3.82 L Hgb 12.3 Hct 38.8 MCV 101.6 H MCH 32.2 H MCHC 31.7 L RDW Std Deviation 54.5 H RDW Coeff of [place] 14.6 Plt Count 226 MPV 8.9 Immature Gran % (Auto) 1.000 H Neut % (Auto) 71.2 H Lymph % (Auto) 17.9 L [place] % (Auto) 8.7 Eos % (Auto) 0.8 Baso % (Auto) 0.4 Absolute Neuts (auto) 7.5 Absolute Lymphs (auto) 1.88 Nucleated RBC % 0 Sodium 142 Potassium 5.1 Chloride 110 H Carbon Dioxide 27.0 Anion Gap 5 BUN 21 H Creatinine 1.43 H Estim Creat Clear Calc 24.82 Est GFR (MDRD) Af Amer 45 L Est GFR (MDRD) Non-Af 38 L BUN/Creatinine Ratio 14.7 Glucose 140 H Calcium 8.2 L Radiography Diagnostic Testing: Clinical Impression(s) from Imaging Studies Chest X-Ray 01/11/22 19:25 IMPRESSION: No acute cardiopulmonary disease or major interval change. Electronically Signed: Umair HernandezDO at 19:53 EDT Reading Location ID and State: [address] [place] [address] Tel [phone], Service support , Discharge Plan Triage Chief Complaint: Shortness of Breath ED Provider: Justino Parada Dx/Rx/DC Orders Prescriptions: No Action oxybutynin chloride 10 mg tablet extended release 24hr 10 mg PO DAILY midodrine 5 mg tablet 10 mg PO BID omeprazole 40 mg capsule,delayed release(DR/EC) 40 mg PO DAILY fludrocortisone 0.1 mg tablet 0.05 mg PO QMWF budesonide 0.5 mg/2 mL suspension for nebulization 0.5 mg inhalation BID fluticasone propionate 50 mcg/actuation spray,suspension 2 spray intranasal DAILY Rx Instructions: administer into each nostril furosemide 40 mg tablet 20 mg PO DAILY pantoprazole 40 mg tablet,delayed release (DR/EC) 40 mg PO BID pramipexole 1 mg tablet 0.5 mg PO QHS pregabalin 50 mg capsule 50 mg PO QHS nitroglycerin 0.4 mg tablet, sublingual 0.4 mg sublingual Q5-15M PRN (Reason: chest pain) Qty: 25 3RF citalopram 20 MG tablet 20 mg PO DAILY Label Comments: ANTI-DEPRESSANT albuterol sulfate 1 PUFF inhaler 2 puff INHALATION Q6H PRN PRN (Reason: Sob &/Or Wheezing) Label Comments: BREATHING MEDICATION montelukast 10 mg tablet 10 mg PO QHS Label Comments: Asthma atorvastatin 40 MG tablet 40 mg PO QHS Rx Instructions: cholesterol hydroxyzine HCl 25 MG tablet 25 mg PO QHS loperamide 2 mg capsule 4 mg PO BID formoterol fumarate 20 mcg/2 mL Solution For Nebulization 2 ml INHALATION Q12H fluticasone furoate 50 mcg/actuation Blister With Device 2 mcg INHALATION DAILY ipratropium-albuterol 0.5 mg-3 mg(2.5 mg base)/3 mL solution for nebulization 3 ml INHALATION 4X/DAY nystatin 100,000 unit/gram powder 1 applic topical DAILY Qty: 60 0RF metoprolol succinate 25 mg tablet extended release 24 hr 12.5 mg PO DAILY Rx Instructions: HOLD IF SPB <100 OR HR <60 clopidogrel 75 mg tablet 75 mg PO DAILY Qty: 90 3RF ranolazine 500 mg tablet extended release 12 hr 500 mg PO BID Primary Care Provider: Agnieszka Degroot NP Referrals: Agnieszka Degroot NP, [facility] [Primary Care Provider] -
[2022-01-11 19:32] LABS: Absolute Lymphocyte Count 1.88 X10^3/uL (0.83-4.51); Absolute Neutrophil Count 7.5 X10^3/uL (2.0-7.7); Basophil# 0.04 X10^3/uL; Basophil% 0.4 % (0-1); Eosinophil# 0.08 X10^3/uL; Eosinophils% 0.8 % (0-5); Hematocrit 38.8 % (37-47); Hemoglobin 12.3 g/dL (12.0-15.0); Lymphocyte # 1.88 X10^3/ul (0.83-4.51); Lymphocyte % 17.9 % (19-41); Mean Corp Hgb Conc 31.7 g/dL (32-36); Mean Corpuscular Hgb 32.2 pg (27.0-32.0); Mean Corpuscular Volume 101.6 fL (81-99); Mean Platelet Vol. 8.9 fl (6.2-12.0); Monocyte# 0.91 X10^3/uL; Monocyte% 8.7 % (0-10); NRBC Flagged by Analyzer 0 % (0-5); Neutrophil # 7.47 X10^3/uL (2.7-7.7); Neutrophil % 71.2 % (47-70); Platelet Count 226 K/mm3 (150-450); RBC Distribution Width CV 14.6 % (11.6-14.6); RBC Distribution Width SD 54.5 fl (35.1-43.9); Red Blood Count 3.82 M/mm3 (4.2-5.4); White Blood Count 10.5 K/mm3 (4.4-11.0)
[2022-01-11] MEDS: MethylPREDNISolone 125 MG/2 ML Vial IV (19:36)
[2022-01-11 19:46] LABS: Anion Gap 5 (5-15); BUN 21 mg/dL (7-18); BUN/Creat Ratio 14.7 RATIO (10-20); Calcium,Total 8.2 mg/dL (8.5-10.1); Chloride 110 mmol/L (98-107); Creatinine, Serum 1.43 mg/dL (0.55-1.02); EST Glomerular Filtration Rate 38 mL/min (>60); Est Glom Filt Rate - Afr Amer 45 mL/min (>60); Estimated Creatinine Clearance 24.82 ml/min; Glucose 140 mg/dL (74-106); Potassium 5.1 mmol/L (3.5-5.1); Sodium Level 142 mmol/L (136-145)
--- NOTE | 2022-01-11 19:52 | CPS ---
x1 Albuterol given to pt. in ER as well
== END 2022-01-11 21:20 | disposition home or self-care (01) ==
PROVIDERS: Emergency Provider Student in an Organized Health Care Education/Training Program; PCP Registered Nurse; Visit Provider Student in an Organized Health Care Education/Training Program
DX: J44.1 Chronic obstructive pulmonary disease with (acute) exacerbation (principal); E11.22 Type 2 diabetes mellitus with diabetic chronic kidney disease; I12.9 Hypertensive chronic kidney disease with stage 1 through stage 4 chronic kidney disease, or unspecified chronic kidney disease; E78.5 Hyperlipidemia, unspecified; N18.9 Chronic kidney disease, unspecified; I25.10 Atherosclerotic heart disease of native coronary artery without angina pectoris; R06.02 Shortness of breath; F17.210 Nicotine dependence, cigarettes, uncomplicated; Z20.822 Contact with and (suspected) exposure to COVID-19; Z99.81 Dependence on supplemental oxygen
CPT/HCPCS: 71045; 80048; 85025; 94640; 96374; 99251; 99283; J7040; A4216; G0463

== ENCOUNTER 2022-04-08 00:55 | Emergency (ER) | payer MEDICARE, SELFPAY ==
[2017-12-22 12:49] VITALS: BMI 49.4
[2022-04-08 00:56] VITALS: BP 115/48; PULSE 72; RESP 16; TEMP 36.2; O2SAT 98; BMI 39.1
--- NOTE | 2022-04-08 01:36 | EDS_ITS ---
HPI History of Present Illness Chief Complaint: General Illness Informant: patient and SNF (RN) Narrative Narrative: Patient was sent by care home for IV access. The patient does not know anything else about why she is here and states that she feels fine. No report was given to nursing or myself from anyone caring for this patient initially. EMS states that the care home wanted to give her IV fluids and they could not get an IV and so they called them to bring her to the ED for IV access. [facility] PFS Medical History Anemia Asthma Atherosclerosis of coronary artery of [place] heart without angina pectoris Carotid artery stenosis Chronic hypoxemic respiratory failure Chronic respiratory failure with hypoxia CKD (chronic kidney disease) COPD (chronic obstructive pulmonary disease) COVID-19 virus detected (11/12/20) Diabetes Essential (primary) hypertension History of diabetes mellitus, type II History of gastroesophageal reflux (GERD) Hyperlipidemia Ileostomy present Morbid obesity Nicotine dependence Obesities, morbid Obstructive sleep apnea JESSICA (obstructive sleep apnea) Stage 2 moderate COPD by GOLD classification 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) Stenosis of right carotid artery Tobacco abuse Transient hypotension VBI (vertebrobasilar insufficiency) Viral URI Home Medications citalopram 20 mg tablet 20 mg PO DAILY depression 02/28/13 [History Last Taken 02/25/20] albuterol sulfate 90 mcg/actuation aerosol inhaler 2 puff inhalation Q6H PRN PRN Sob &/Or Wheezing 07/15/14 [History Last Taken 02/25/20] atorvastatin 40 mg tablet 40 mg PO QHS CHOLESTEROL 08/17/18 [History Last Taken 02/24/20] metoprolol succinate 25 mg tablet,extended release 24 hr 12.5 mg PO DAILY BP 12/06/19 [History Last Taken 02/25/20] oxybutynin chloride 10 mg tablet,extended release 24 hr 10 mg PO DAILY BLADDER 01/25/20 [History Last Taken 02/25/20] hydroxyzine HCl 25 mg tablet 25 mg PO QHS SLEEP 02/25/20 [History Last Taken 02/24/20] montelukast 10 mg tablet 10 mg PO QHS Allergies 03/11/20 [History Last Taken Unknown] omeprazole 40 mg capsule,delayed release 40 mg PO DAILY 03/11/20 [History Last Taken Unknown] fluticasone furoate 50 mcg/actuation blister powder for inhalation 2 mcg inhalation DAILY 11/10/20 [History Last Taken Unknown] formoterol fumarate 20 mcg/2 mL solution for nebulization 2 ml inhalation Q12H 11/10/20 [History Last Taken Unknown] clopidogrel 75 mg tablet 75 mg PO DAILY BLOOD THINNER #90 tabs 02/27/21 [Rx Last Taken Unknown] nystatin 100,000 unit/gram topical powder 1 applic topical DAILY #60 grams 06/14/21 [Rx Last Taken Unknown] budesonide 0.5 mg/2 mL suspension for nebulization 0.5 mg inhalation BID 12/16/21 [History Last Taken Unknown] fludrocortisone 0.1 mg tablet 0.05 mg PO QMWF 12/16/21 [History Last Taken Unknown] fluticasone propionate 50 mcg/actuation nasal spray,suspension 2 spray intranasal DAILY 12/16/21 [History Last Taken Unknown] furosemide 40 mg tablet 20 mg PO DAILY 12/16/21 [History Last Taken Unknown] ipratropium 0.5 mg-albuterol 3 mg (2.5 mg base)/3 mL nebulization soln 3 ml inhalation 4X/DAY sob 12/16/21 [History Last Taken Unknown] loperamide 2 mg capsule 4 mg PO BID Diarrhea 12/16/21 [History Last Taken Unknown] midodrine 5 mg tablet 10 mg PO BID BP 12/16/21 [History Last Taken Unknown] nitroglycerin 0.4 mg sublingual tablet 0.4 mg sublingual Q5-15M PRN chest pain #25 tabs 12/16/21 [Rx Last Taken Unknown] pantoprazole 40 mg tablet,delayed release 40 mg PO BID 12/16/21 [History Last Taken Unknown] pramipexole 1 mg tablet 0.5 mg PO QHS 12/16/21 [History Last Taken Unknown] pregabalin 50 mg capsule 50 mg PO QHS 12/16/21 [History Last Taken Unknown] ranolazine 500 mg tablet,extended release,12 hr 500 mg PO BID 12/24/21 [History Last Taken Unknown] prednisone 10 mg tablet 50 mg PO DAILY 5 days #25 tabs 01/11/22 [Rx Last Taken Unknown] Allergy/AdvReac Type Severity Reaction Status Date / Time aspirin [ASA] Allergy Severe Hives Verified 04/08/22 01:02 ferrous sulfate Allergy Intermediate Hives Verified 04/08/22 01:02 bupropion [From Wellbutrin] Allergy headache Verified 04/08/22 01:02 codeine Allergy Hives Verified 04/08/22 01:02 meperidine [From Demerol] Allergy PT UNABLE Verified 04/08/22 01:02 TO RESPOND-NEEDS F/U meperidine HCl [From Demerol] Allergy Hives Verified 04/08/22 01:02 naproxen sodium Allergy Hives Verified 04/08/22 01:02 [From Anaprox] propoxyphene HCl Allergy Hives Verified 04/08/22 01:02 [From Darvon] Sulfa (Sulfonamide Allergy hives, Verified 04/08/22 01:02 Antibiotics) trouble breathing gabapentin AdvReac Intermediate Mental Verified 04/08/22 01:02 status change, foggy headed NSAIDS (Non-Steroidal AdvReac Hives Verified 04/08/22 01:02 Anti-Inflamma Family History Mother CVA (cerebral vascular accident) Father Asthma Hypertension High blood cholesterol level Arthritis Surgical History H/O bariatric surgery History of section History of cholecystectomy History of coronary artery stent placement (12/11/19) History of right knee joint replacement History of right-sided carotid endarterectomy (07/2014) left subclavian artery stent (03/2017) Social History Smoking Status: Current every day smoker tobacco type: cigarettes second hand exposure: Yes alcohol intake: never substance use type: does not use caffeine: Yes Type: coffee Number of servings: 6 and tea Number of servings: 2 what type of physical activity do you participate in: none ROS ROS ED Constitutional Constitutional ED: Denies chills or fever(s) Eyes Eyes: Denies change in vision or diplopia ENT ENT ED: Denies rhinorrhea or sore throat Cardiovascular Cardiovascular: Denies chest pain or palpitations Respiratory/Chest Respiratory/Chest: Denies cough or dyspnea Gastrointestinal Gastrointestinal: Denies abdominal pain, diarrhea, nausea or vomiting Genitourinary Genitourinary ED: Denies dysuria or hematuria Musculoskeletal Musculoskeletal: Denies back pain or neck pain Integumentary Denies abscess or rash Neurologic Neurologic: Denies headache(s), paresthesias or weakness Psychiatric Psychiatric: Denies anxiety or suicidal thoughts EXAM Physical Exam Const Vital Signs: 04/08/22 00:56 04/08/22 01:44 Temperature 97.2 F L Temperature Source Temporal Pulse Rate 72 Respiratory Rate 16 Respiratory Effort Normal Respiratory Pattern Normal Blood Pressure 115/48 L Blood Pressure Mean 70 Pulse Ox 98 Oxygen Delivery Method Room Air Positive well nourished, well developed and obese General Appearance ED: well developed and NAD Nutritional Appearance: obese HEENT Reports moist mucous membranes normocephalic and atraumatic Eyes PERRL and EOMs intact bilaterally Neck full ROM and supple Resp normal respiratory effort and clear to auscultation bilaterally Cardio regular rate, regular rhythm and no murmurs GI non-tender and non-distended Auscultation: normoactive bowel sounds Palpation: soft Back/Spine no CVA tenderness General Back: other FROM Extremity normal to inspection General Extremety ED: Negative for edema, pulses abnormal or tenderness General Extremity: Negative for edema or pulses abnormal Neuro oriented x3, CN's II-XII intact bilaterally and no sensory deficits noted Sensorium / Orientation: awake and alert Motor Exam: strength 5/5 throughout Skin no rashes or lesions noted and no wounds MDM MDM MDM Narrative Medical decision making narrative: I called the care home and spoke with a nurse there, however it is approximately 1 AM and the nurse who was caring for the patient was unavailable and no one who was available new anything specific other than what I already knew. Later the nurse caring for the patient called and gave report to one of our staff, and discussed that her creatinine recently was 1.5 and it went up to 1.7 and so a nurse practitioner ordered an IV with IV fluids and they were unable to get the IV. They also noted that at some point in the past 24 hours her potassium was elevated over 6 and she was given Kayexalate. They also said she has chronic kidney disease. Looking back at the patient's labs in our EMR/hospital, she has not had any labs since December. Shortly after these conversations, the care home fax the patient's lab results. These are outpatient labs done at the nursing facility, and I reviewed the results. They show that on 04/05/2022, patient's creatinine was 1.5 and her potassium was 5.9. About 9-10 hours ago on 04/07, her creatinine was 1.7 and her potassium was 6.2. Presumably, she drank Kayexalate after these labs returned. Therefore in addition to getting IV access, I repeated her chemistry panel. Her potassium is down to 5.4. I did an EKG, there were no findings of acute hyperkalemia. Her creatinine is 1.63. I am comfortable with nursing placing in an IV and [facility] I expect her potassium to continue to fall. Lab Data Attestation: I reviewed the patient's lab results. Labs: Laboratory Results - last 24 hr 04/08/22 01:30 Sodium 140 Potassium 5.4 H Chloride 112 H Carbon Dioxide 25.0 Anion Gap 3 L BUN 24 H Creatinine 1.63 H Estim Creat Clear Calc 21.77 Est GFR (MDRD) Af Amer 39 L Est GFR (MDRD) Non-Af 32 L BUN/Creatinine Ratio 14.7 Glucose 82 Calcium 8.3 L Rhythm Strip Rhythm Strip: Sinus Rhythm Rate: 70 Ectopy: None EKG Initial EKG: Attestation: I personally reviewed and interpreted this EKG as follows: Interpretation: Sinus Rhythm, No Acute Injury Pattern and Non-Specific ST Changes (laterally) Comments: Narrow QRS. No peaked T waves. Discharge Plan Triage Chief Complaint: General Illness ED Provider: Ruiz Ny Dx/Rx/DC Orders Clinical Impression: Hyperkalemia, CKD (chronic kidney disease) Prescriptions: No Action oxybutynin chloride 10 mg tablet extended release 24hr 10 mg PO DAILY midodrine 5 mg tablet 10 mg PO BID omeprazole 40 mg capsule,delayed release(DR/EC) 40 mg PO DAILY fludrocortisone 0.1 mg tablet 0.05 mg PO QMWF budesonide 0.5 mg/2 mL suspension for nebulization 0.5 mg inhalation BID fluticasone propionate 50 mcg/actuation spray,suspension 2 spray intranasal DAILY Rx Instructions: administer into each nostril furosemide 40 mg tablet 20 mg PO DAILY pantoprazole 40 mg tablet,delayed release (DR/EC) 40 mg PO BID pramipexole 1 mg tablet 0.5 mg PO QHS pregabalin 50 mg capsule 50 mg PO QHS nitroglycerin 0.4 mg tablet, sublingual 0.4 mg sublingual Q5-15M PRN (Reason: chest pain) Qty: 25 3RF citalopram 20 MG tablet 20 mg PO DAILY Label Comments: ANTI-DEPRESSANT albuterol sulfate 1 PUFF inhaler 2 puff INHALATION Q6H PRN PRN (Reason: Sob &/Or Wheezing) Label Comments: BREATHING MEDICATION montelukast 10 mg tablet 10 mg PO QHS Label Comments: Asthma atorvastatin 40 MG tablet 40 mg PO QHS Rx Instructions: cholesterol hydroxyzine HCl 25 MG tablet 25 mg PO QHS loperamide 2 mg capsule 4 mg PO BID formoterol fumarate 20 mcg/2 mL Solution For Nebulization 2 ml INHALATION Q12H fluticasone furoate 50 mcg/actuation Blister With Device 2 mcg INHALATION DAILY ipratropium-albuterol 0.5 mg-3 mg(2.5 mg base)/3 mL solution for nebulization 3 ml INHALATION 4X/DAY nystatin 100,000 unit/gram powder 1 applic topical DAILY Qty: 60 0RF prednisone 10 mg tablet 50 mg PO DAILY 5 Days Qty: 25 0RF metoprolol succinate 25 mg tablet extended release 24 hr 12.5 mg PO DAILY Rx Instructions: HOLD IF SPB <100 OR HR <60 clopidogrel 75 mg tablet 75 mg PO DAILY Qty: 90 3RF ranolazine 500 mg tablet extended release 12 hr 500 mg PO BID Primary Care Provider: Fuad Bustos Referrals: Fuad Bustos [Primary Care Provider] - 1 Day Disposition Disposition: Home, Self Care
[2022-04-08 02:08] LABS: Anion Gap 3 (5-15); BUN 24 mg/dL (7-18); BUN/Creat Ratio 14.7 RATIO (10-20); Calcium,Total 8.3 mg/dL (8.5-10.1); Chloride 112 mmol/L (98-107); Creatinine, Serum 1.63 mg/dL (0.55-1.02); EST Glomerular Filtration Rate 32 mL/min (>60); Est Glom Filt Rate - Afr Amer 39 mL/min (>60); Estimated Creatinine Clearance 21.77 ml/min; Glucose 82 mg/dL (74-106); Potassium 5.4 mmol/L (3.5-5.1); Sodium Level 140 mmol/L (136-145)
[2022-04-08 02:51] VITALS: BP 104/54; PULSE 68; RESP 15; O2SAT 91
== END 2022-04-08 03:48 | disposition home or self-care (01) ==
PROVIDERS: Emergency Provider Emergency Medicine; PCP Family Medicine; Visit Provider Emergency Medicine
DX: E87.5 Hyperkalemia (principal); J44.9 Chronic obstructive pulmonary disease, unspecified; E11.22 Type 2 diabetes mellitus with diabetic chronic kidney disease; I12.9 Hypertensive chronic kidney disease with stage 1 through stage 4 chronic kidney disease, or unspecified chronic kidney disease; E78.5 Hyperlipidemia, unspecified; N18.9 Chronic kidney disease, unspecified; I25.10 Atherosclerotic heart disease of native coronary artery without angina pectoris; F17.210 Nicotine dependence, cigarettes, uncomplicated; E66.9 Obesity, unspecified
CPT/HCPCS: 99285; 80048; 93005

== ENCOUNTER 2022-04-08 23:23 | Emergency (ER) | payer MEDICARE, MEDICAID, SELFPAY ==
[2017-12-22 12:49] VITALS: BMI 49.4
[2022-04-08 23:25] VITALS: BP 101/49; PULSE 88; RESP 15; TEMP 36.6; O2SAT 99; BMI 40.0
--- NOTE | 2022-04-08 23:48 | EKG12_ITS ---
Test Reason : DYSRHYTHMIA Blood Pressure : / mmHG Vent. Rate : 071 BPM Atrial Rate : 071 BPM P-R Int : 218 ms QRS Dur : 076 ms QT Int : 392 ms P-R-T Axes : 072 056 121 degrees QTc Int : 425 ms Sinus rhythm with 1st degree A-V block Septal infarct , age undetermined Abnormal ECG Confirmed by SANDI LEI, WILBERTO ([id number]), newspaper editor ANDIE GARY ([id number]) on 04/12/2022 9:15:13 AM Referred By: ANAMARIA Confirmed By:WILBERTO JUNIOR MD
[2022-04-09 00:13] LABS: Anion Gap 3 (5-15); BUN 23 mg/dL (7-18); BUN/Creat Ratio 16.2 RATIO (10-20); Calcium,Total 8.1 mg/dL (8.5-10.1); Chloride 116 mmol/L (98-107); Creatinine, Serum 1.42 mg/dL (0.55-1.02); EST Glomerular Filtration Rate 38 mL/min (>60); Est Glom Filt Rate - Afr Amer 46 mL/min (>60); Estimated Creatinine Clearance 24.99 ml/min; Glucose 90 mg/dL (74-106); Magnesium 1.8 mg/dL (1.6-2.6); Potassium 5.1 mmol/L (3.5-5.1); Sodium Level 144 mmol/L (136-145)
--- NOTE | 2022-04-09 00:48 | EX.ED.DYSGE1 ---
HPI History of Present Illness Chief Complaint: Abn Labs Narrative Narrative: Patient is an 81-year-old female from the long-term with past medical history of chronic kidney disease hypertension hyperlipidemia and diabetes. Reportedly she had outpatient blood work drawn today and her potassium was elevated. She states that she does not have chest pain shortness of breath weakness or palpitations. She states that she was told that the potassium was high and secondary to that she needed to go to the hospital and therefore presents at this time. [facility] Medical History Anemia Asthma Atherosclerosis of coronary artery of [place] heart without angina pectoris Carotid artery stenosis Chronic hypoxemic respiratory failure Chronic respiratory failure with hypoxia CKD (chronic kidney disease) COPD (chronic obstructive pulmonary disease) COVID-19 virus detected (11/12/20) Diabetes Essential (primary) hypertension History of diabetes mellitus, type II History of gastroesophageal reflux (GERD) Hyperlipidemia Ileostomy present Morbid obesity Nicotine dependence Obesities, morbid Obstructive sleep apnea JESSICA (obstructive sleep apnea) Stage 2 moderate COPD by GOLD classification 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) Stenosis of right carotid artery Tobacco abuse Transient hypotension VBI (vertebrobasilar insufficiency) Viral URI Home Medications citalopram 20 mg tablet 20 mg PO DAILY depression 02/28/13 [History Last Taken 02/25/20] albuterol sulfate 90 mcg/actuation aerosol inhaler 2 puff inhalation Q6H PRN PRN Sob &/Or Wheezing 07/15/14 [History Last Taken 02/25/20] atorvastatin 40 mg tablet 40 mg PO QHS CHOLESTEROL 08/17/18 [History Last Taken 02/24/20] metoprolol succinate 25 mg tablet,extended release 24 hr 12.5 mg PO DAILY BP 12/06/19 [History Last Taken 02/25/20] oxybutynin chloride 10 mg tablet,extended release 24 hr 10 mg PO DAILY BLADDER 01/25/20 [History Last Taken 02/25/20] hydroxyzine HCl 25 mg tablet 25 mg PO QHS SLEEP 02/25/20 [History Last Taken 02/24/20] montelukast 10 mg tablet 10 mg PO QHS Allergies 03/11/20 [History Last Taken Unknown] omeprazole 40 mg capsule,delayed release 40 mg PO DAILY 03/11/20 [History Last Taken Unknown] fluticasone furoate 50 mcg/actuation blister powder for inhalation 2 mcg inhalation DAILY 11/10/20 [History Last Taken Unknown] formoterol fumarate 20 mcg/2 mL solution for nebulization 2 ml inhalation Q12H 11/10/20 [History Last Taken Unknown] clopidogrel 75 mg tablet 75 mg PO DAILY BLOOD THINNER #90 tabs 02/27/21 [Rx Last Taken Unknown] nystatin 100,000 unit/gram topical powder 1 applic topical DAILY #60 grams 06/14/21 [Rx Last Taken Unknown] budesonide 0.5 mg/2 mL suspension for nebulization 0.5 mg inhalation BID 12/16/21 [History Last Taken Unknown] fludrocortisone 0.1 mg tablet 0.05 mg PO QMWF 12/16/21 [History Last Taken Unknown] fluticasone propionate 50 mcg/actuation nasal spray,suspension 2 spray intranasal DAILY 12/16/21 [History Last Taken Unknown] furosemide 40 mg tablet 20 mg PO DAILY 12/16/21 [History Last Taken Unknown] ipratropium 0.5 mg-albuterol 3 mg (2.5 mg base)/3 mL nebulization soln 3 ml inhalation 4X/DAY sob 12/16/21 [History Last Taken Unknown] loperamide 2 mg capsule 4 mg PO BID Diarrhea 12/16/21 [History Last Taken Unknown] midodrine 5 mg tablet 10 mg PO BID BP 12/16/21 [History Last Taken Unknown] nitroglycerin 0.4 mg sublingual tablet 0.4 mg sublingual Q5-15M PRN chest pain #25 tabs 12/16/21 [Rx Last Taken Unknown] pantoprazole 40 mg tablet,delayed release 40 mg PO BID 12/16/21 [History Last Taken Unknown] pramipexole 1 mg tablet 0.5 mg PO QHS 12/16/21 [History Last Taken Unknown] pregabalin 50 mg capsule 50 mg PO QHS 12/16/21 [History Last Taken Unknown] ranolazine 500 mg tablet,extended release,12 hr 500 mg PO BID 12/24/21 [History Last Taken Unknown] prednisone 10 mg tablet 50 mg PO DAILY 5 days #25 tabs 01/11/22 [Rx Last Taken Unknown] Allergy/AdvReac Type Severity Reaction Status Date / Time aspirin [ASA] Allergy Severe Hives Verified 04/08/22 23:29 ferrous sulfate Allergy Intermediate Hives Verified 04/08/22 23:29 bupropion [From Wellbutrin] Allergy headache Verified 04/08/22 23:29 codeine Allergy Hives Verified 04/08/22 23:29 meperidine [From Demerol] Allergy PT UNABLE Verified 04/08/22 23:29 TO RESPOND-NEEDS F/U meperidine HCl [From Demerol] Allergy Hives Verified 04/08/22 23:29 naproxen sodium Allergy Hives Verified 04/08/22 23:29 [From Anaprox] propoxyphene HCl Allergy Hives Verified 04/08/22 23:29 [From Darvon] Sulfa (Sulfonamide Allergy hives, Verified 04/08/22 23:29 Antibiotics) trouble breathing gabapentin AdvReac Intermediate Mental Verified 04/08/22 23:29 status change, foggy headed NSAIDS (Non-Steroidal AdvReac Hives Verified 04/08/22 23:29 Anti-Inflamma Family History Mother CVA (cerebral vascular accident) Father Asthma Hypertension High blood cholesterol level Arthritis Surgical History H/O bariatric surgery History of section History of cholecystectomy History of coronary artery stent placement (12/11/19) History of right knee joint replacement History of right-sided carotid endarterectomy (07/2014) left subclavian artery stent (03/2017) Social History Smoking Status: Current every day smoker tobacco type: cigarettes second hand exposure: Yes alcohol intake: never substance use type: does not use caffeine: Yes Type: coffee Number of servings: 6 and tea Number of servings: 2 what type of physical activity do you participate in: none ROS ROS ED Constitutional Constitutional ED: Denies chills or fever(s) ENT ENT ED: Denies sore throat Cardiovascular Cardiovascular: Denies chest pain or palpitations Respiratory/Chest Respiratory/Chest: Denies cough or dyspnea Gastrointestinal Gastrointestinal: Denies abdominal pain, nausea or vomiting Genitourinary Genitourinary ED: Denies dysuria Musculoskeletal Musculoskeletal: Denies myalgias Integumentary Denies rash Neurologic Neurologic: Denies headache(s), paresthesias or weakness Hematologic/Lymphatic Hematologic/Lymphatic: Reports easy bleeding and easy bruising EXAM Physical Exam Const Vital Signs: 04/08/22 23:25 Temperature 97.8 F Temperature Source Temporal Pulse Rate 88 Respiratory Rate 15 Blood Pressure 101/49 L Blood Pressure Mean 66 Pulse Ox 99 Oxygen Delivery Method Room Air Positive well nourished, well developed and obese General Appearance ED: well developed Nutritional Appearance: obese Eyes PERRL and EOMs intact bilaterally Neck supple Resp normal respiratory effort and clear to auscultation bilaterally Cardio regular rate and regular rhythm Rate: other Other Details: Radial pulses are plus 2 out of 4 bilaterally are equal and symmetric GI non-tender and non-distended GI Narrative: Abdomen is obese soft nontender nondistended with normoactive bowel sounds. Patient has an ileostomy in place which is draining brown soft stool. No voluntary guarding or rigidity. No pulsatile mass or fluid wave Auscultation: normoactive bowel sounds Palpation: soft Extremity normal to inspection Neuro oriented x3 and CN's II-XII intact bilaterally Sensorium / Orientation: alert Psych mental status grossly normal Skin no rashes or lesions noted MDM MDM MDM Narrative Medical decision making narrative: Patient presented to the ER with stable vitals and a nonfocal exam. She reported her potassium was elevated and thus why she was sent to the hospital. I felt this could possibly be lab error especially with her history of chronic kidney disease and therefore elected on to check a basic metabolic panel with magnesium and EKG. EKG showed no hyper or hypokalemic changes. The patient's repeat potassium is technically normal at 5.1. Her kidney function is always elevated secondary to her chronic kidney disease and is actually better than the previous values. Therefore at this time as acute on chronic kidney injury has been ruled out she does not have signs of hyper or hypokalemia and vitals are stable there is no need for any treatment interventions or further work-up in the ER and she is otherwise safe for discharge Lab Data Attestation: I reviewed the patient's lab results. Labs: Laboratory Results - last 24 hr 04/08/22 23:52 Sodium 144 Potassium 5.1 Chloride 116 H Carbon Dioxide 25.0 Anion Gap 3 L BUN 23 H Creatinine 1.42 H Estim Creat Clear Calc 24.99 Est GFR (MDRD) Af Amer 46 L Est GFR (MDRD) Non-Af 38 L BUN/Creatinine Ratio 16.2 Glucose 90 Calcium 8.1 L Magnesium 1.8 Discharge Plan Triage Chief Complaint: Abn Labs ED Provider: Rafael Cotton Dx/Rx/DC Orders Clinical Impression: CKD (chronic kidney disease), Hyperlipidemia, Essential (primary) hypertension, Diabetes Prescriptions: No Action oxybutynin chloride 10 mg tablet extended release 24hr 10 mg PO DAILY midodrine 5 mg tablet 10 mg PO BID omeprazole 40 mg capsule,delayed release(DR/EC) 40 mg PO DAILY fludrocortisone 0.1 mg tablet 0.05 mg PO QMWF budesonide 0.5 mg/2 mL suspension for nebulization 0.5 mg inhalation BID fluticasone propionate 50 mcg/actuation spray,suspension 2 spray intranasal DAILY Rx Instructions: administer into each nostril furosemide 40 mg tablet 20 mg PO DAILY pantoprazole 40 mg tablet,delayed release (DR/EC) 40 mg PO BID pramipexole 1 mg tablet 0.5 mg PO QHS pregabalin 50 mg capsule 50 mg PO QHS nitroglycerin 0.4 mg tablet, sublingual 0.4 mg sublingual Q5-15M PRN (Reason: chest pain) Qty: 25 3RF citalopram 20 MG tablet 20 mg PO DAILY Label Comments: ANTI-DEPRESSANT albuterol sulfate 1 PUFF inhaler 2 puff INHALATION Q6H PRN PRN (Reason: Sob &/Or Wheezing) Label Comments: BREATHING MEDICATION montelukast 10 mg tablet 10 mg PO QHS Label Comments: Asthma atorvastatin 40 MG tablet 40 mg PO QHS Rx Instructions: cholesterol hydroxyzine HCl 25 MG tablet 25 mg PO QHS loperamide 2 mg capsule 4 mg PO BID formoterol fumarate 20 mcg/2 mL Solution For Nebulization 2 ml INHALATION Q12H fluticasone furoate 50 mcg/actuation Blister With Device 2 mcg INHALATION DAILY ipratropium-albuterol 0.5 mg-3 mg(2.5 mg base)/3 mL solution for nebulization 3 ml INHALATION 4X/DAY nystatin 100,000 unit/gram powder 1 applic topical DAILY Qty: 60 0RF prednisone 10 mg tablet 50 mg PO DAILY 5 Days Qty: 25 0RF metoprolol succinate 25 mg tablet extended release 24 hr 12.5 mg PO DAILY Rx Instructions: HOLD IF SPB <100 OR HR <60 clopidogrel 75 mg tablet 75 mg PO DAILY Qty: 90 3RF ranolazine 500 mg tablet extended release 12 hr 500 mg PO BID Primary Care Provider: Fuad Bustos Referrals: Fuad Bustos MD [Primary Care Provider] - Activity Restrictions/Additional Instructions: Your repeat potassium was technically normal at 5.1 and her EKG shows no hyperkalemia changes and therefore there is no need for further treatment in the ER and you are safe for discharge. Please continue all of your medication as previously directed Disposition Disposition: Home, Self Care
[2022-04-09 03:30] VITALS: RESP 16; RESP 18
--- NOTE | 2022-04-09 04:33 | ED.RN ---
samira made aware patient coming back at this time
== END 2022-04-09 04:34 | disposition home or self-care (01) ==
PROVIDERS: Emergency Provider Emergency Medicine; PCP Family Medicine; Visit Provider Emergency Medicine
DX: E87.6 Hypokalemia (principal); J44.9 Chronic obstructive pulmonary disease, unspecified; E11.22 Type 2 diabetes mellitus with diabetic chronic kidney disease; N18.9 Chronic kidney disease, unspecified; E78.5 Hyperlipidemia, unspecified; I25.10 Atherosclerotic heart disease of native coronary artery without angina pectoris; I12.9 Hypertensive chronic kidney disease with stage 1 through stage 4 chronic kidney disease, or unspecified chronic kidney disease; F17.210 Nicotine dependence, cigarettes, uncomplicated; E66.9 Obesity, unspecified
CPT/HCPCS: 36415; 80048; 83735; 93005; 99284; 99285

== ENCOUNTER → 2022-04-10 | Outpatient (CLI) | payer MEDICARE, SELFPAY ==
[2017-12-22 12:49] VITALS: BMI 49.4
[2022-04-10 11:51] LABS: Anion Gap 7 (5-15); BUN 19 mg/dL (7-18); BUN/Creat Ratio 13.4 RATIO (10-20); Calcium,Total 8.3 mg/dL (8.5-10.1); Chloride 114 mmol/L (98-107); Creatinine, Serum 1.42 mg/dL (0.55-1.02); EST Glomerular Filtration Rate 38 mL/min (>60); Est Glom Filt Rate - Afr Amer 46 mL/min (>60); Glucose 138 mg/dL (74-106); Potassium 5.2 mmol/L (3.5-5.1); Sodium Level 145 mmol/L (136-145)
== END | disposition home or self-care (01) ==
LOC: LABSPEC 11:15
PROVIDERS: PCP Family Medicine; Visit Provider Family Medicine
DX: E87.5 Hyperkalemia (principal)
CPT/HCPCS: 80048

== ENCOUNTER → 2022-04-27 | Outpatient (CLI) | payer MEDICARE, SELFPAY ==
[2017-12-22 12:49] VITALS: BMI 49.4
[2022-04-27 13:28] LABS: Albumin, Serum 3.3 g/dL (3.2-5.0); BUN 30 mg/dL (7-18); BUN/Creat Ratio 18.2 RATIO (10-20); Calcium,Total 8.9 mg/dL (8.5-10.1); Chloride 110 mmol/L (98-107); Creatinine, Serum 1.65 mg/dL (0.55-1.02); EST Glomerular Filtration Rate 32 mL/min (>60); Est Glom Filt Rate - Afr Amer 38 mL/min (>60); Ferritin 145 ng/mL (8-252); Glucose 82 mg/dL (74-106); Iron 54 ug/dL (50-170); Iron Binding Capacity,Total 371 ug/dL (250-450); Phosphorus 3.8 mg/dL (2.5-4.9); Potassium 4.9 mmol/L (3.5-5.1); Sodium Level 141 mmol/L (136-145)
[2022-04-27 13:32] LABS: PTHIN 158.8 pg/mL (18.4-80.1)
== END | disposition home or self-care (01) ==
PROVIDERS: PCP Family Medicine; Visit Provider Internal Medicine Nephrology
DX: D64.9 Anemia, unspecified (principal); N17.9 Acute kidney failure, unspecified
CPT/HCPCS: 36415; 80069; 82728; 83540; 83550; 83970; 85027

== ENCOUNTER 2022-04-29 17:07 | Emergency (ER) | payer MEDICARE, MEDICAID, SELFPAY ==
[2017-12-22 12:49] VITALS: BMI 49.4
[2022-04-29 17:08] VITALS: BP 156/58; PULSE 64; RESP 18; TEMP 36.6; O2SAT 98; BMI 38.4
--- NOTE | 2022-04-29 17:50 | CT_ITS ---
INDICATION: trauma EXAMINATION: CT CERVICAL SPINE - CT Spine Cervical W/O Contrast Injection TECHNIQUE: Helically acquired images were obtained of the cervical spine. 2D reformatted images were reviewed. A radiation dose optimization technique was used for this scan. IV Contrast dosage and agent: None. COMPARISON: 01/14/2021 FINDINGS: VERTEBRAE: 1. Vertebral body height is maintained, persistent reversal of cervical lordosis and marginal osteophyte formation is again noted. No fractures evident. 2. Moderate multilevel facet arthropathy is present. 3. Normal craniocervical junction and cervicothoracic junction. Normal appearance of the odontoid process. DISCS and SPINAL CANAL: Disc space narrowing and marginal osteophyte formation most notable at C4-5 and C5-6. There is deformity of the anterior pleural space and mild narrowing of lateral recess greater on the LEFT than RIGHT due to chronic disc and uncovertebral joint changes at C4-5. No acute disc herniation. No critical canal stenosis. NECK SOFT TISSUES: No prevertebral soft tissue swelling. There is no cervical adenopathy. Moderate to extensive calcifications involving the LEFT carotid bulb. LUNG APICES: Clear. CT/Spine Cervical without Contras IMPRESSION: 1. Stable exam. 2. No evidence of acute cervical spinal fracture or spondylolisthesis. No acutely acquired canal stenosis. 3. Cervical spondylosis and uncovertebral joint hypertrophic changes contributing to chronic foraminal narrowing as detailed. 4. Extensive LEFT carotid calcifications. Electronically Signed: Geovanny Vizcaino MD at 18:53 EST ,
--- NOTE | 2022-04-29 17:50 | CT_ITS ---
INDICATION: trauma EXAMINATION: CT BRAIN - CT Head or Brain W/O Contrast Injection TECHNIQUE: Multiple axial images were obtained of the head without intravenous contrast. A radiation dose optimization technique was used for this scan. IV Contrast dosage and agent: None. RADIATION DOSAGE (If Supplied By Facility): CTDIvol = ( 44.99 ) mGy, DLP = ( 762.36 ) mGycm COMPARISON: 01/14/2021 FINDINGS: HEMISPHERES: 1. The cerebral parenchyma, ventricular system, subarachnoid spaces have normal configuration and density. There is a normal gyral pattern. There is normal alexis/white differentiation. No midline shift.. 2. The hemispheric white matter has normal appearance. Small benign punctate calcification along the cortical surface of the RIGHT insula. 3. No intraparenchymal mass, hemorrhage, or acute territorial infarct. CEREBELLUM - BRAINSTEM: The cerebellum, brainstem, basilar and suprasellar cisterns have normal appearance. No Chiari malformation. PITUITARY: Infundibulum and pituitary have normal configuration. Midline structures appear normal. CSF SPACES: Appropriate for age. No hydrocephalus. Basal cisterns are patent. VESSELS: 1. No significant vascular calcifications in the cavernous carotid vessels. 2. No hyperdense vascular signs noted.. ORBITS AND PARANASAL SINUSES: 1. Normal appearance of the bony orbits. Normal appearance of the globes and retrobulbar soft tissues.. 2. Paranasal sinuses are clear. BONY ELEMENTS: Bony elements of the cranial vault, facial skeleton and skull base have normal appearance. SCALP AND SOFT TISSUES: Normal appearance of the soft tissues of the scalp and the visualized face OTHER: None ASPECTS Score for Acute Strokes: 10 CT/Brain/Head without Contrast IMPRESSION: 1. No intracranial evidence of acute traumatic injury. 2. No intracranial mass, hemorrhage or acute territorial infarct. 3. Single stable punctate calcification along the cortical surface of the RIGHT insula. 4. No cranial facial fractures noted. 5. No radiographically significant sinus disease.. Electronically Signed: Geovanny Vizcaino MD at 18:42 EST ,
--- NOTE | 2022-04-29 17:53 | EDS_ITS ---
HPI HPI - Fall History of Present Illness Chief Complaint: Nausea/Vomiting Narrative Narrative: Patient presents from an ECF, about 14 hours ago she was getting up in the middle night to go to the bathroom and fell hit the back of her head. She did not pass out she remembers the event. There was a concern at the ECF that she may have passed out however the patient is recalling all the events and tells me she did not pass out. She has a history of hyperkalemia and apparently she was tested today and her potassium was 5.9. She is not anticoagulated. Currently she is complaining only of a headache where she hit her head otherwise she has no other complaints. [facility] Medical History Anemia Asthma Atherosclerosis of coronary artery of [place] heart without angina pectoris Carotid artery stenosis Chronic hypoxemic respiratory failure Chronic respiratory failure with hypoxia CKD (chronic kidney disease) COPD (chronic obstructive pulmonary disease) COVID-19 virus detected (11/12/20) Diabetes Essential (primary) hypertension History of diabetes mellitus, type II History of gastroesophageal reflux (GERD) Hyperlipidemia Ileostomy present Morbid obesity Nicotine dependence Obesities, morbid Obstructive sleep apnea JESSICA (obstructive sleep apnea) Stage 2 moderate COPD by GOLD classification 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) Stenosis of right carotid artery Tobacco abuse Transient hypotension VBI (vertebrobasilar insufficiency) Viral URI Home Medications citalopram 20 mg tablet 20 mg PO DAILY depression 02/28/13 [History Last Taken 02/25/20] albuterol sulfate 90 mcg/actuation aerosol inhaler 2 puff inhalation Q6H PRN PRN Sob &/Or Wheezing 07/15/14 [History Last Taken 02/25/20] atorvastatin 40 mg tablet 40 mg PO QHS CHOLESTEROL 08/17/18 [History Last Taken 02/24/20] metoprolol succinate 25 mg tablet,extended release 24 hr 12.5 mg PO DAILY BP 12/06/19 [History Last Taken 02/25/20] oxybutynin chloride 10 mg tablet,extended release 24 hr 10 mg PO DAILY BLADDER 01/25/20 [History Last Taken 02/25/20] hydroxyzine HCl 25 mg tablet 25 mg PO QHS SLEEP 02/25/20 [History Last Taken 02/24/20] montelukast 10 mg tablet 10 mg PO QHS Allergies 03/11/20 [History Last Taken Unknown] omeprazole 40 mg capsule,delayed release 40 mg PO DAILY 03/11/20 [History Last Taken Unknown] fluticasone furoate 50 mcg/actuation blister powder for inhalation 2 mcg inhalation DAILY 11/10/20 [History Last Taken Unknown] formoterol fumarate 20 mcg/2 mL solution for nebulization 2 ml inhalation Q12H 11/10/20 [History Last Taken Unknown] clopidogrel 75 mg tablet 75 mg PO DAILY BLOOD THINNER #90 tabs 02/27/21 [Rx Last Taken Unknown] nystatin 100,000 unit/gram topical powder 1 applic topical DAILY #60 grams 06/14/21 [Rx Last Taken Unknown] budesonide 0.5 mg/2 mL suspension for nebulization 0.5 mg inhalation BID 12/16/21 [History Last Taken Unknown] fludrocortisone 0.1 mg tablet 0.05 mg PO QMWF 12/16/21 [History Last Taken Unknown] fluticasone propionate 50 mcg/actuation nasal spray,suspension 2 spray intranasal DAILY 12/16/21 [History Last Taken Unknown] furosemide 40 mg tablet 20 mg PO DAILY 12/16/21 [History Last Taken Unknown] ipratropium 0.5 mg-albuterol 3 mg (2.5 mg base)/3 mL nebulization soln 3 ml inhalation 4X/DAY sob 12/16/21 [History Last Taken Unknown] loperamide 2 mg capsule 4 mg PO BID Diarrhea 12/16/21 [History Last Taken Unknown] midodrine 5 mg tablet 10 mg PO BID BP 12/16/21 [History Last Taken Unknown] nitroglycerin 0.4 mg sublingual tablet 0.4 mg sublingual Q5-15M PRN chest pain #25 tabs 12/16/21 [Rx Last Taken Unknown] pantoprazole 40 mg tablet,delayed release 40 mg PO BID 12/16/21 [History Last Taken Unknown] pramipexole 1 mg tablet 0.5 mg PO QHS 12/16/21 [History Last Taken Unknown] pregabalin 50 mg capsule 50 mg PO QHS 12/16/21 [History Last Taken Unknown] ranolazine 500 mg tablet,extended release,12 hr 500 mg PO BID 12/24/21 [History Last Taken Unknown] prednisone 10 mg tablet 50 mg PO DAILY 5 days #25 tabs 01/11/22 [Rx Last Taken Unknown] ondansetron 4 mg disintegrating tablet 4 mg PO Q8H PRN PRN Nausea #4 tabs 04/29/22 [Rx Last Taken Unknown] Allergy/AdvReac Type Severity Reaction Status Date / Time aspirin [ASA] Allergy Severe Hives Verified 04/29/22 17:10 ferrous sulfate Allergy Intermediate Hives Verified 04/29/22 17:10 bupropion [From Wellbutrin] Allergy headache Verified 04/29/22 17:10 codeine Allergy Hives Verified 04/29/22 17:10 meperidine [From Demerol] Allergy PT UNABLE Verified 04/29/22 17:10 TO RESPOND-NEEDS F/U meperidine HCl [From Demerol] Allergy Hives Verified 04/29/22 17:10 naproxen sodium Allergy Hives Verified 04/29/22 17:10 [From Anaprox] propoxyphene HCl Allergy Hives Verified 04/29/22 17:10 [From Darvon] Sulfa (Sulfonamide Allergy hives, Verified 04/29/22 17:10 Antibiotics) trouble breathing gabapentin AdvReac Intermediate Mental Verified 04/29/22 17:10 status change, foggy headed NSAIDS (Non-Steroidal AdvReac Hives Verified 04/29/22 17:10 Anti-Inflamma Family History Mother CVA (cerebral vascular accident) Father Asthma Hypertension High blood cholesterol level Arthritis Surgical History H/O bariatric surgery History of section History of cholecystectomy History of coronary artery stent placement (12/11/19) History of right knee joint replacement History of right-sided carotid endarterectomy (07/2014) left subclavian artery stent (03/2017) Social History Smoking Status: Former smoker second hand exposure: Yes alcohol intake: never substance use type: does not use caffeine: Yes Type: coffee Number of servings: 6 and tea Number of servings: 2 what type of physical activity do you participate in: none ROS ROS ED ROS Narrative Past medical history: Reviewed Medications: Reviewed Social history: Noncontributory Review of systems: All systems negative except as indicated General: Headache as in HPI Eyes: No visual changes ENT: No upper airway congestion, normal voice Neck: No neck pain Cardiovascular: No chest pain Respiratory: No shortness of breath or cough Gastrointestinal: No abdominal pain, nausea vomiting or diarrhea Genitourinary: No dysuria Musculoskeletal: Chronic shoulder pain, no injury to the shoulders. Skin: No rash Neurological: No memory loss, confusion or any focal weakness Psych: No recent behavioral changes Hematologic: No easy bleeding or easy bruising EXAM Physical Exam Narrative Exam Narrative: Physical exam General: Patient appears chronically ill but does not appear in current distress. Head: Normocephalic, I examined her posterior scalp, there is no hematoma or lacerations. Eyes: Conjunctiva not pale ENT: Slightly dry mucous membranes Neck: Supple, Nontender, No lymphadenopathy. No C-spine tenderness Cardiovascular: Regular rate, Regular rhythm Respiratory: No distress, CTA bilaterally Abdomen: Soft, ostomy site is intact without signs of infection. The abdomen is nontender Back: Nontender, Normal Inspection. Negative for: CVA tenderness Extremities: Full range of motion of all extremities including the shoulders. Skin: Normal color, No rash Neurological: Alert, Normal Strength, Normal Sensation Const Vital Signs: 04/29/22 17:08 04/29/22 17:13 04/29/22 18:11 Temperature 97.8 F Temperature Source Oral Pulse Rate 64 63 Respiratory Rate 18 22 H Respiratory Effort Normal Respiratory Pattern Normal Blood Pressure 156/58 H 107/48 L Blood Pressure Mean 90 67 Pulse Ox 98 94 Oxygen Delivery Method Room Air Room Air [facility] Lab Data Labs: Laboratory Results - last 24 hr 04/29/22 04/29/22 04/29/22 18:00 18:00 18:59 WBC 7.6 RBC 3.75 L Hgb 11.5 L Hct 36.8 L MCV 98.1 MCH 30.7 MCHC 31.3 L RDW Std Deviation 49.7 H RDW Coeff of [place] 13.7 Plt Count 293 MPV 8.9 Immature Gran % (Auto) 1.100 H Neut % (Auto) 66.7 Lymph % (Auto) 18.3 L [place] % (Auto) 9.9 Eos % (Auto) 3.2 Baso % (Auto) 0.8 Absolute Neuts (auto) 5.1 Absolute Lymphs (auto) 1.38 Nucleated RBC % 0 Sodium 140 Potassium 5.6 H Chloride 110 H Carbon Dioxide 25.0 Anion Gap 5 BUN 33 H Creatinine 1.94 H Estim Creat Clear Calc 18.29 Est GFR (MDRD) Af Amer 32 L Est GFR (MDRD) Non-Af 26 L BUN/Creatinine Ratio 17.0 Glucose 111 H Calcium 8.5 Total Bilirubin 0.30 AST 36 ALT 30 Alkaline Phosphatase 99 Total Protein 6.8 Albumin 2.7 L Globulin 4.1 Albumin/Globulin Ratio 0.7 L Urine Color Yellow Urine Clarity Clear Urine pH 5.0 Ur Specific [place] 1.010 Urine Protein 30 H Urine Glucose (UA) Normal Urine Ketones Negative Urine Occult Blood Negative Urine Nitrite Negative Urine Bilirubin Negative Urine Urobilinogen Normal Ur Leukocyte Esterase 25 H Urine RBC 0 SEEN Urine WBC 0-5 SEEN Ur Squamous Epith Cells 0-5 SEEN Urine Bacteria 0 SEEN Urine Mucus 0 SEEN Radiography Diagnostic Testing: Clinical Impression(s) from Imaging Studies Brain CT 04/29/22 17:50 IMPRESSION: 1. No intracranial evidence of acute traumatic injury. 2. No intracranial mass, hemorrhage or acute territorial infarct. 3. Single stable punctate calcification along the cortical surface of the RIGHT insula. 4. No cranial facial fractures noted. 5. No radiographically significant sinus disease.. Electronically Signed: Geovanny Vizcaino MD at 18:42 EST , Cervical Spine CT 04/29/22 17:50 IMPRESSION: 1. Stable exam. 2. No evidence of acute cervical spinal fracture or spondylolisthesis. No acutely acquired canal stenosis. 3. Cervical spondylosis and uncovertebral joint hypertrophic changes contributing to chronic foraminal narrowing as detailed. 4. Extensive LEFT carotid calcifications. Electronically Signed: Geovanny Vizcaino MD at 18:53 EST , I discussed the patient with son at the bedside. Patient had a mechanical fall.. CT of the head and C-spine are normal. She also has renal insufficiency and prerenal azotemia, this is mild and we gave IV fluids. She also has subsequent very slight hyperkalemia which again was treated with IV fluids in the emergency department. She otherwise appears well she has some nausea can be treated with antiemetics for home I believe she is stable for home, she is in an ECF and can get monitored. If anything changes she is to return. I thought about admission because of the hyperkalemia and dehydration however looking back she has similar hyperkalemia and similar azotemia in the past and thus I believe it is reasonable to discharge. I independently reviewed the telemetry strip in the room, she is sinus rhythm with a rate of 99 without any ectopy. Blood work and CTs were interpreted by me. EKG Initial EKG: Comments: Sinus rhythm with a rate of 99. Normal [place] interval. QTc slightly elevated at 492. No ischemic changes. Interpreted by emergency doctor Discharge Plan Triage Chief Complaint: Nausea/Vomiting Other Complaint: Fall Syncope ED Provider: Fuad De La Torre Dx/Rx/DC Orders Clinical Impression: Acute hyperkalemia, Prerenal azotemia, Fall, Concussion without loss of consciousness, Acute dehydration Instructions: After a Concussion, ED Dehydration (Adult) Prescriptions: New ondansetron 4 mg tablet,disintegrating 4 mg PO Q8H PRN PRN (Reason: Nausea) Qty: 4 0RF No Action oxybutynin chloride 10 mg tablet extended release 24hr 10 mg PO DAILY midodrine 5 mg tablet 10 mg PO BID omeprazole 40 mg capsule,delayed release(DR/EC) 40 mg PO DAILY fludrocortisone 0.1 mg tablet 0.05 mg PO QMWF budesonide 0.5 mg/2 mL suspension for nebulization 0.5 mg inhalation BID fluticasone propionate 50 mcg/actuation spray,suspension 2 spray intranasal DAILY Rx Instructions: administer into each nostril furosemide 40 mg tablet 20 mg PO DAILY pantoprazole 40 mg tablet,delayed release (DR/EC) 40 mg PO BID pramipexole 1 mg tablet 0.5 mg PO QHS pregabalin 50 mg capsule 50 mg PO QHS nitroglycerin 0.4 mg tablet, sublingual 0.4 mg sublingual Q5-15M PRN (Reason: chest pain) Qty: 25 3RF citalopram 20 MG tablet 20 mg PO DAILY Label Comments: ANTI-DEPRESSANT albuterol sulfate 1 PUFF inhaler 2 puff INHALATION Q6H PRN PRN (Reason: Sob &/Or Wheezing) Label Comments: BREATHING MEDICATION montelukast 10 mg tablet 10 mg PO QHS Label Comments: Asthma atorvastatin 40 MG tablet 40 mg PO QHS Rx Instructions: cholesterol hydroxyzine HCl 25 MG tablet 25 mg PO QHS loperamide 2 mg capsule 4 mg PO BID formoterol fumarate 20 mcg/2 mL Solution For Nebulization 2 ml INHALATION Q12H fluticasone furoate 50 mcg/actuation Blister With Device 2 mcg INHALATION DAILY ipratropium-albuterol 0.5 mg-3 mg(2.5 mg base)/3 mL solution for nebulization 3 ml INHALATION 4X/DAY nystatin 100,000 unit/gram powder 1 applic topical DAILY Qty: 60 0RF prednisone 10 mg tablet 50 mg PO DAILY 5 Days Qty: 25 0RF metoprolol succinate 25 mg tablet extended release 24 hr 12.5 mg PO DAILY Rx Instructions: HOLD IF SPB <100 OR HR <60 clopidogrel 75 mg tablet 75 mg PO DAILY Qty: 90 3RF ranolazine 500 mg tablet extended release 12 hr 500 mg PO BID Primary Care Provider: Fuad Bustos Referrals: Fuad Bustos MD [Primary Care Provider] - 2 Days Disposition Disposition: Home, Self Care
[2022-04-29] MEDS: 0.9% Normal Saline 1,000 ML 1000 ML IV (18:00)
[2022-04-29 18:11] VITALS: BP 107/48; PULSE 63; RESP 22; O2SAT 94
[2022-04-29 18:21] LABS: Absolute Lymphocyte Count 1.38 X10^3/uL (0.83-4.51); Absolute Neutrophil Count 5.1 X10^3/uL (2.0-7.7); Basophil# 0.06 X10^3/uL; Basophil% 0.8 % (0-1); Eosinophil# 0.24 X10^3/uL; Eosinophils% 3.2 % (0-5); Hematocrit 36.8 % (37-47); Hemoglobin 11.5 g/dL (12.0-15.0); Lymphocyte # 1.38 X10^3/ul (0.83-4.51); Lymphocyte % 18.3 % (19-41); Mean Corp Hgb Conc 31.3 g/dL (32-36); Mean Corpuscular Hgb 30.7 pg (27.0-32.0); Mean Corpuscular Volume 98.1 fL (81-99); Mean Platelet Vol. 8.9 fl (6.2-12.0); Monocyte# 0.75 X10^3/uL; Monocyte% 9.9 % (0-10); NRBC Flagged by Analyzer 0 % (0-5); Neutrophil # 5.05 X10^3/uL (2.7-7.7); Neutrophil % 66.7 % (47-70); Platelet Count 293 K/mm3 (150-450); RBC Distribution Width CV 13.7 % (11.6-14.6); RBC Distribution Width SD 49.7 fl (35.1-43.9); Red Blood Count 3.75 M/mm3 (4.2-5.4); White Blood Count 7.6 K/mm3 (4.4-11.0)
[2022-04-29 18:32] LABS: ALB/GLOB Ratio 0.7 RATIO (0.9-2.4); AST(SGOT) 36 U/L (15-37); Alanine Aminotransfer ALT/SGPT 30 U/L (13-56); Albumin, Serum 2.7 g/dL (3.2-5.0); Alkaline Phosphatase 99 U/L (45-117); Anion Gap 5 (5-15); BUN 33 mg/dL (7-18); Calcium,Total 8.5 mg/dL (8.5-10.1); Chloride 110 mmol/L (98-107); Creatinine, Serum 1.94 mg/dL (0.55-1.02); EST Glomerular Filtration Rate 26 mL/min (>60); Est Glom Filt Rate - Afr Amer 32 mL/min (>60); Estimated Creatinine Clearance 18.29 ml/min; Globulin 4.1 g/dL (2.2-4.2); Glucose 111 mg/dL (74-106); Potassium 5.6 mmol/L (3.5-5.1); Protein, Total 6.8 g/dL (6.4-8.2); Sodium Level 140 mmol/L (136-145)
[2022-04-29 19:01] LABS: Bacteria 0 SEEN /hpf (None Seen); Mucous, Urine 0 SEEN /hpf (<or=2+); Red Blood Cells-Urine 0 SEEN /hpf (0-5)
[2022-04-29 19:02] LABS: Color, Urine Yellow (Yellow); Glucose, Dipstick Normal (Normal); Ketone-Dipstick Negative (Negative); Leukocyte Esterase-Dipstick 25 /ul (Negative); Nitrite-Dipstick Negative (Negative); Occult Blood-Urine Negative /ul (Negative); Protein-Dipstick 30 mg/dl (Negative); Urine Bilirubin Dipstick Negative (Negative); Urine Clarity Clear (Clear); Urine Urobilinogen Normal (Normal)
[2022-04-29 19:14] LABS: Squamous Epithelial Cells - UA 0-5 SEEN /hpf (5-10); White Blood Cells 0-5 SEEN /hpf (0-5)
== END 2022-04-29 23:53 | disposition skilled nursing facility (03) ==
PROVIDERS: Emergency Provider Emergency Medicine; PCP Family Medicine; Visit Provider Emergency Medicine
DX: S06.0X0A Concussion without loss of consciousness, initial encounter (principal); J44.9 Chronic obstructive pulmonary disease, unspecified; E11.22 Type 2 diabetes mellitus with diabetic chronic kidney disease; E86.0 Dehydration; I12.9 Hypertensive chronic kidney disease with stage 1 through stage 4 chronic kidney disease, or unspecified chronic kidney disease; R11.2 Nausea with vomiting, unspecified; I25.10 Atherosclerotic heart disease of native coronary artery without angina pectoris; Z87.891 Personal history of nicotine dependence; E78.5 Hyperlipidemia, unspecified; E87.5 Hyperkalemia; N18.9 Chronic kidney disease, unspecified; R79.89 Other specified abnormal findings of blood chemistry; W19.XXXA Unspecified fall, initial encounter
CPT/HCPCS: 70450; 72125; 80053; 81001; 85025; 93005; 96360; 99285; J7030; A4216

== ENCOUNTER 2022-06-01 17:50 | Emergency (ER) | payer MEDICARE, MEDICAID, SELFPAY ==
[2017-12-22 12:49] VITALS: BMI 49.4
[2022-06-01 17:50] VITALS: BP 114/47; PULSE 80; RESP 16; TEMP 36.6; O2SAT 95; BMI 43.5
--- NOTE | 2022-06-01 18:04 | CT_ITS ---
STUDY: CT ABDOMEN AND PELVIS WITHOUT CONTRAST REASON FOR EXAM: Female, 81 years old. Abdominal pain RADIATION DOSAGE (If Supplied By Facility): CTDIvol = ( 21.96 ) mGy, DLP = ( 1042.43 ) mGycm TECHNIQUE: Transaxial images were obtained from the dome of the diaphragm to the symphysis pubis with oral contrast, and without intravenous contrast. Sagittal and coronal images were reconstructed. Individualized dose optimization techniques were used for this CT. COMPARISON: None. FINDINGS: There is right greater than left lower lung airspace consolidation. There are coronary artery and mitral annular calcifications. Normal liver. There are surgical clips in the gallbladder fossa consistent with a prior cholecystectomy. Normal spleen. Normal pancreas. Normal bilateral adrenal glands. There is 4.0 cm cyst of the right kidney. Normal left kidney. There is a small hiatal hernia. There is postoperative change of the stomach and small intestine. There is postoperative change in the colon with resection and right lower quadrant ostomy. There is non-visualization of the appendix. There is diffuse atherosclerotic calcification of the abdominal aorta, without a demonstrated aneurysm. There is severe narrowing of the lumen Normal inferior vena cava. Normal retroperitoneum. Normal urinary bladder. There is atrophy of the uterus. There is no free fluid in the abdomen or pelvis. There is postoperative change of the abdominal wall. There are diffuse degenerative changes of the visualized lumbar spine. CT/Abdomen/Pel W ORAL Cont Only IMPRESSION: Postoperative change. No obstruction. Advanced atherosclerosis. Right greater than left lower lung infiltrates. Electronically Signed: Ruiz Delgado MD at 20:47 EDT ,
--- NOTE | 2022-06-01 18:05 | EDS_ITS ---
HPI HPI - GI History of Present Illness Chief Complaint: Abd Pain Detail of Chief Complaint: Abdominal pain x4 days Informant: patient Narrative Narrative: Presents with abdominal pain x4 days. Patient states that it there is an egg sized mass in her right lower quadrant that she notices with certain positions that becomes painful. Yesterday the pain lasted about an hour. Currently she has no pain. Her physician at the assisted living facility ordered a CT scan of her abdomen pelvis but has not had it done yet. Patient has history of a ileostomy but she cannot tell me why he was placed 5 years ago. Patient denies fevers. She had nausea but no vomiting. She denies blood in her stool or black tarry stool. Patient denies urinary symptoms. [facility] Medical History (Updated 06/01/22 @ 21:[address] Princess Finney, ) Anemia Asthma Atherosclerosis of coronary artery of [place] heart without angina pectoris Carotid artery stenosis Chronic hypoxemic respiratory failure Chronic respiratory failure with hypoxia CKD (chronic kidney disease) COPD (chronic obstructive pulmonary disease) COVID-19 virus detected (11/12/20) Diabetes Essential (primary) hypertension History of diabetes mellitus, type II History of gastroesophageal reflux (GERD) Hyperlipidemia Ileostomy present Morbid obesity Nicotine dependence Obesities, morbid Obstructive sleep apnea JESSICA (obstructive sleep apnea) Stage 2 moderate COPD by GOLD classification 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) Stenosis of right carotid artery Tobacco abuse Transient hypotension VBI (vertebrobasilar insufficiency) Viral URI Walker as ambulation aid Home Medications citalopram 20 mg tablet 20 mg PO DAILY depression 02/28/13 [History Last Taken 02/25/20] albuterol sulfate 90 mcg/actuation aerosol inhaler 2 puff inhalation Q6H PRN PRN Sob &/Or Wheezing 07/15/14 [History Last Taken 02/25/20] atorvastatin 40 mg tablet 40 mg PO QHS CHOLESTEROL 08/17/18 [History Last Taken 02/24/20] metoprolol succinate 25 mg tablet,extended release 24 hr 12.5 mg PO DAILY BP 12/06/19 [History Last Taken 02/25/20] oxybutynin chloride 10 mg tablet,extended release 24 hr 10 mg PO DAILY BLADDER 01/25/20 [History Last Taken 02/25/20] hydroxyzine HCl 25 mg tablet 25 mg PO QHS SLEEP 12/14/20 [History Last Taken 02/24/20] montelukast 10 mg tablet 10 mg PO QHS Allergies 03/11/20 [History Last Taken Unknown] omeprazole 40 mg capsule,delayed release 40 mg PO DAILY 03/11/20 [History Last Taken Unknown] fluticasone furoate 50 mcg/actuation blister powder for inhalation 2 mcg inhalation DAILY 11/10/20 [History Last Taken Unknown] formoterol fumarate 20 mcg/2 mL solution for nebulization 2 ml inhalation Q12H 11/10/20 [History Last Taken Unknown] clopidogrel 75 mg tablet 75 mg PO DAILY BLOOD THINNER #90 tabs 02/27/21 [Rx Last Taken Unknown] nystatin 100,000 unit/gram topical powder 1 applic topical DAILY #60 grams 06/14/21 [Rx Last Taken Unknown] budesonide 0.5 mg/2 mL suspension for nebulization 0.5 mg inhalation BID 12/16/21 [History Last Taken Unknown] fluticasone propionate 50 mcg/actuation nasal spray,suspension 2 spray intranasal DAILY 12/16/21 [History Last Taken Unknown] furosemide 40 mg tablet 20 mg PO DAILY 12/16/21 [History Last Taken Unknown] ipratropium 0.5 mg-albuterol 3 mg (2.5 mg base)/3 mL nebulization soln 3 ml inhalation 4X/DAY sob 12/16/21 [History Last Taken Unknown] loperamide 2 mg capsule 4 mg PO BID Diarrhea 12/16/21 [History Last Taken Unknown] midodrine 5 mg tablet 10 mg PO BID BP 12/16/21 [History Last Taken Unknown] nitroglycerin 0.4 mg sublingual tablet 0.4 mg sublingual Q5-15M PRN chest pain #25 tabs 12/16/21 [Rx Last Taken Unknown] pantoprazole 40 mg tablet,delayed release 40 mg PO BID 12/16/21 [History Last Taken Unknown] pramipexole 1 mg tablet 0.5 mg PO QHS 12/16/21 [History Last Taken Unknown] pregabalin 50 mg capsule 50 mg PO QHS 12/16/21 [History Last Taken Unknown] ranolazine 500 mg tablet,extended release,12 hr 500 mg PO BID 12/24/21 [History Last Taken Unknown] prednisone 10 mg tablet 50 mg PO DAILY 5 days #25 tabs 10/31/22 [Rx Last Taken Unknown] ondansetron 4 mg disintegrating tablet 4 mg PO Q8H PRN PRN Nausea #4 tabs 04/29/22 [Rx Last Taken Unknown] fludrocortisone 0.1 mg tablet 0.1 mg PO DAILY 06/01/22 [History Last Taken Unknown] levofloxacin 750 mg tablet 750 mg PO DAILY #7 tabs 06/01/22 [Rx Last Taken Unknown] ranolazine 500 mg tablet,extended release,12 hr 500 mg PO BID 06/01/22 [History Last Taken Unknown] Allergy/AdvReac Type Severity Reaction Status Date / Time aspirin [ASA] Allergy Severe Hives Verified 06/01/22 17:57 ferrous sulfate Allergy Intermediate Hives Verified 06/01/22 17:57 bupropion [From Wellbutrin] Allergy headache Verified 06/01/22 17:57 codeine Allergy Hives Verified 06/01/22 17:57 meperidine [From Demerol] Allergy PT UNABLE Verified 06/01/22 17:57 TO RESPOND-NEEDS F/U meperidine HCl [From Demerol] Allergy Hives Verified 06/01/22 17:57 naproxen sodium Allergy Hives Verified 06/01/22 17:57 [From Anaprox] propoxyphene HCl Allergy Hives Verified 06/01/22 17:57 [From Darvon] Sulfa (Sulfonamide Allergy hives, Verified 06/01/22 17:57 Antibiotics) trouble breathing gabapentin AdvReac Intermediate Mental Verified 06/01/22 17:57 status change, foggy headed morphine AdvReac NEEDS Verified 06/01/22 17:57 FOLLOW-UP NSAIDS (Non-Steroidal AdvReac Hives Verified 06/01/22 17:57 Anti-Inflamma salicylates AdvReac NEEDS Verified 06/01/22 17:57 FOLLOW-UP Family History Mother CVA (cerebral vascular accident) Father Asthma Hypertension High blood cholesterol level Arthritis Surgical History H/O bariatric surgery History of section History of cholecystectomy History of coronary artery stent placement (12/11/19) History of right knee joint replacement History of right-sided carotid endarterectomy (07/2014) left subclavian artery stent (03/2017) Social History Smoking Status: Former smoker second hand exposure: Yes alcohol intake: never substance use type: does not use caffeine: Yes Type: coffee Number of servings: 6 and tea Number of servings: 2 what type of physical activity do you participate in: none ROS ROS ED Review of Systems ROS Unobtainable: other Constitutional Constitutional ED: Reports lethargy; Denies chills, fever(s), sweats or weight loss Eyes Eyes: Denies blurry vision, change in vision or diplopia ENT ENT ED: Denies rhinorrhea or sore throat Cardiovascular Cardiovascular: Denies chest pain, orthopnea or racing heartbeat Respiratory/Chest Respiratory/Chest: Denies cough, dyspnea, dyspnea on exertion, orthopnea or sputum Gastrointestinal Gastrointestinal: Reports abdominal pain and nausea; Denies diarrhea or vomiting Genitourinary Genitourinary ED: Denies dysuria, hematuria or urinary frequency Musculoskeletal Musculoskeletal: Denies arthralgias, back pain, myalgias or neck pain Integumentary Denies abscess, Abrasions or rash Neurologic Neurologic: Denies headache(s) or weakness Psychiatric Psychiatric: Denies anxiety, depression or suicidal thoughts Endocrine Endocrinology: Denies polydipsia, polyphagia or polyuria Hematologic/Lymphatic Hematologic/Lymphatic: Denies easy bleeding, easy bruising or lymphadenopathy Allergic/Immunologic Allergic/Immunologic ED: Denies mouth swelling, tongue swelling or urticaria EXAM Physical Exam Const Vital Signs: 06/01/22 17:50 Temperature 97.9 F Temperature Source Oral Pulse Rate 80 Respiratory Rate 16 Blood Pressure 114/47 L Blood Pressure Mean 69 Pulse Ox 95 Oxygen Delivery Method Room Air Positive well nourished and well developed General Appearance ED: well developed and NAD HEENT Reports TM's clear and moist mucous membranes normocephalic and atraumatic; Negative for trauma or tenderness Tympanic Membrane ED: Yes TM's clear Eyes PERRL and EOMs intact bilaterally General Eye ED: Negative for pale conjunctiva or scleral icterus Neck no lymphadenopathy, supple and no JVD General: Negative for tenderness Chest Wall inspection of chest normal and palpation of chest normal Chest: Negative for tenderness Resp normal respiratory effort and clear to auscultation bilaterally Effort and Inspection: Negative for respiratory distress or pain with movement Auscultation: Negative for rhonchi, wheezes or diminished lung sounds Cardio regular rate, regular rhythm, S1 normal heart sound, S2 normal heart sound and no murmurs Peripheral Pulses: pulses 2+ throughout GI normal to inspection, nondistended, normoactive bowel sounds, soft to palpation, non-tender, non-distended and no masses GI Narrative: Patient morbidly obese. Ileostomy in place. Abdomen currently nontender on exam. I do not appreciate any masses or hernias at this time. Back/Spine no CVA tenderness and no thoracic nor lumbar tenderness Extremity normal to inspection General Extremety ED: Negative for edema General Extremity: Negative for edema Neuro oriented x3, CN's II-XII intact bilaterally, no sensory deficits noted and gait normal Sensorium / Orientation: awake, alert, oriented to person, oriented to place and oriented to time Motor Exam: strength 5/5 throughout and strength abnormal Psych mental status grossly normal Skin no rashes or lesions noted and no wounds MDM MDM MDM Narrative Medical decision making narrative: Patient presents with right lower quadrant abdominal pain with mass with position concerning for possible hernia. Patient does state that she has a deve loping hernia that she was told was stable. Patient will have lab work and CT scan of the abdomen pelvis to evaluate further. Patient had a CBC with differential that showed an elevated white count 16.3. Chemistries unremarkable. Lactate was normal 1.0. Urinalysis showed 500 leukocyte Estrace as well as 10-25 WBCs and +1 bacteria. I did send off her urine culture. CT scan of the abdomen pelvis obtained read by radiology as lower lung infiltrates right greater than left. Patient does tell me that she has had a cough. She denies feeling short of breath. I will start her on Levaquin. Clinically I do not appreciate a hernia here and there is no evidence of obstruction. I suspect there could be bowel that herniates into the area of the stoma causing pain and then reducing. I discussed this possibility with patient and her daughter. She does have a history of prior hernias. She has a surgeon that she sees at [facility] who is told her that they did not feel she might make it through another surgery. At this time there is no emergent intervention necessary. I did recommend that she follow-up with her surgeon. Patient will be treated with Levaquin for possible pneumonia and possible UTI. Advised to return if worsening pain, lump that does not go away. Fever, vomiting, or condition worsening way Lab Data Labs: Laboratory Results - last 24 hr 06/01/22 06/01/22 06/01/22 18:59 18:59 18:59 WBC 16.3 H RBC 3.58 L Hgb 10.7 L Hct 34.8 L MCV 97.2 MCH 29.9 MCHC 30.7 L RDW Std Deviation 49.9 H RDW Coeff of [place] 14.0 Plt Count 209 MPV 9.1 Immature Gran % (Auto) 0.600 Neut % (Auto) 83.8 H Lymph % (Auto) 6.3 L [place] % (Auto) 7.4 Eos % (Auto) 1.5 Baso % (Auto) 0.4 Absolute Neuts (auto) 13.7 H Absolute Lymphs (auto) 1.03 Nucleated RBC % 0 Sodium 141 Potassium 5.0 Chloride 113 H Carbon Dioxide 23.0 Anion Gap 5 BUN 18 Creatinine 1.40 H Estim Creat Clear Calc 23.02 Est GFR (MDRD) Af Amer 47 L Est GFR (MDRD) Non-Af 38 L BUN/Creatinine Ratio 12.9 Glucose 62 L Lactic Acid 1.0 Calcium 7.9 L Urine Color Urine Clarity Urine pH Ur Specific [place] Urine Protein Urine Glucose (UA) Urine Ketones Urine Occult Blood Urine Nitrite Urine Bilirubin Urine Urobilinogen Ur Leukocyte Esterase Urine RBC Urine WBC Ur Squamous Epith Cells Urine Bacteria Hyaline Casts Urine Mucus 06/01/22 20:10 WBC RBC Hgb Hct MCV MCH MCHC RDW Std Deviation RDW Coeff of [place] Plt Count MPV Immature Gran % (Auto) Neut % (Auto) Lymph % (Auto) [place] % (Auto) Eos % (Auto) Baso % (Auto) Absolute Neuts (auto) Absolute Lymphs (auto) Nucleated RBC % Sodium Potassium Chloride Carbon Dioxide Anion Gap BUN Creatinine Estim Creat Clear Calc Est GFR (MDRD) Af Amer Est GFR (MDRD) Non-Af BUN/Creatinine Ratio Glucose Lactic Acid Calcium Urine Color Yellow Urine Clarity Clear Urine pH 5.0 Ur Specific [place] 1.015 Urine Protein 100 H Urine Glucose (UA) Normal Urine Ketones Negative Urine Occult Blood 10 H Urine Nitrite Negative Urine Bilirubin Negative Urine Urobilinogen Normal Ur Leukocyte Esterase 500 H Urine RBC 0-5 SEEN Urine WBC 10-25 SEEN Ur Squamous Epith Cells 0-5 SEEN Urine Bacteria 1+ Hyaline Casts 0-5 SEEN Urine Mucus 0 SEEN Radiography Diagnostic Testing: Clinical Impression(s) from Imaging Studies Abdomen CT 06/01/22 18:04 IMPRESSION: Postoperative change. No obstruction. Advanced atherosclerosis. Right greater than left lower lung infiltrates. Electronically Signed: Ruiz Delgado MD at 20:47 EDT Reading Location ID and State: [address] [place] [address] , Service support , Discharge Plan Triage Chief Complaint: Abd Pain ED Provider: Princess Finney Dx/Rx/DC Orders Clinical Impression: Abdominal pain, Pneumonia, Leukocytosis, Hernia Instructions: ED Abdominal Pain Unkn Cause Fem, ED Hernia (Adult), ED Pneumonia (Adult) Prescriptions: New levofloxacin 750 mg tablet 750 mg PO DAILY Qty: 7 0RF No Action oxybutynin chloride 10 mg tablet extended release 24hr 10 mg PO DAILY midodrine 5 mg tablet 10 mg PO BID omeprazole 40 mg capsule,delayed release(DR/EC) 40 mg PO DAILY budesonide 0.5 mg/2 mL suspension for nebulization 0.5 mg inhalation BID fluticasone propionate 50 mcg/actuation spray,suspension 2 spray intranasal DAILY Rx Instructions: administer into each nostril furosemide 40 mg tablet 20 mg PO DAILY pantoprazole 40 mg tablet,delayed release (DR/EC) 40 mg PO BID pramipexole 1 mg tablet 0.5 mg PO QHS pregabalin 50 mg capsule 50 mg PO QHS nitroglycerin 0.4 mg tablet, sublingual 0.4 mg sublingual Q5-15M PRN (Reason: chest pain) Qty: 25 3RF fludrocortisone 0.1 mg tablet 0.1 mg PO DAILY citalopram 20 MG tablet 20 mg PO DAILY Label Comments: ANTI-DEPRESSANT albuterol sulfate 1 PUFF inhaler 2 puff INHALATION Q6H PRN PRN (Reason: Sob &/Or Wheezing) Label Comments: BREATHING MEDICATION montelukast 10 mg tablet 10 mg PO QHS Label Comments: Asthma atorvastatin 40 MG tablet 40 mg PO QHS Rx Instructions: cholesterol hydroxyzine HCl 25 MG tablet 25 mg PO QHS loperamide 2 mg capsule 4 mg PO BID formoterol fumarate 20 mcg/2 mL Solution For Nebulization 2 ml INHALATION Q12H fluticasone furoate 50 mcg/actuation Blister With Device 2 mcg INHALATION DAILY ipratropium-albuterol 0.5 mg-3 mg(2.5 mg base)/3 mL solution for nebulization 3 ml INHALATION 4X/DAY nystatin 100,000 unit/gram powder 1 applic topical DAILY Qty: 60 0RF prednisone 10 mg tablet 50 mg PO DAILY 5 Days Qty: 25 0RF ondansetron 4 mg tablet,disintegrating 4 mg PO Q8H PRN PRN (Reason: Nausea) Qty: 4 0RF ranolazine 500 mg Tablet Extended Release 12 Hr 500 mg PO BID metoprolol succinate 25 mg tablet extended release 24 hr 12.5 mg PO DAILY Rx Instructions: HOLD IF SPB <100 OR HR <60 clopidogrel 75 mg tablet 75 mg PO DAILY Qty: 90 3RF ranolazine 500 mg tablet extended release 12 hr 500 mg PO BID Primary Care Provider: Fuad Bustos Referrals: Fuad Bustos MD [Primary Care Provider] - Activity Restrictions/Additional Instructions: Follow-up with your surgeon to be evaluated for possible abdominal pain related to hernia. Disposition Disposition: Home, Self Care
[2022-06-01] MEDS: 0.9% Normal Saline 1,000 ML 125 ML IV (19:00)
[2022-06-01 19:22] LABS: Absolute Lymphocyte Count 1.03 X10^3/uL (0.83-4.51); Absolute Neutrophil Count 13.7 X10^3/uL (2.0-7.7); Basophil# 0.07 X10^3/uL; Basophil% 0.4 % (0-1); Eosinophil# 0.25 X10^3/uL; Eosinophils% 1.5 % (0-5); Hematocrit 34.8 % (37-47); Hemoglobin 10.7 g/dL (12.0-15.0); Lymphocyte # 1.03 X10^3/ul (0.83-4.51); Lymphocyte % 6.3 % (19-41); Mean Corp Hgb Conc 30.7 g/dL (32-36); Mean Corpuscular Hgb 29.9 pg (27.0-32.0); Mean Corpuscular Volume 97.2 fL (81-99); Mean Platelet Vol. 9.1 fl (6.2-12.0); Monocyte% 7.4 % (0-10); NRBC Flagged by Analyzer 0 % (0-5); Neutrophil # 13.66 X10^3/uL (2.7-7.7); Neutrophil % 83.8 % (47-70); Platelet Count 209 K/mm3 (150-450); RBC Distribution Width SD 49.9 fl (35.1-43.9); Red Blood Count 3.58 M/mm3 (4.2-5.4); White Blood Count 16.3 K/mm3 (4.4-11.0)
[2022-06-01 19:51] LABS: Anion Gap 5 (5-15); BUN 18 mg/dL (7-18); BUN/Creat Ratio 12.9 RATIO (10-20); Calcium,Total 7.9 mg/dL (8.5-10.1); Chloride 113 mmol/L (98-107); EST Glomerular Filtration Rate 38 mL/min (>60); Est Glom Filt Rate - Afr Amer 47 mL/min (>60); Estimated Creatinine Clearance 23.02 ml/min; Glucose 62 mg/dL (74-106); Sodium Level 141 mmol/L (136-145)
[2022-06-01 20:13] LABS: Mucous, Urine 0 SEEN /hpf (<or=2+)
[2022-06-01 20:25] LABS: Color, Urine Yellow (Yellow); Glucose, Dipstick Normal (Normal); Ketone-Dipstick Negative (Negative); Leukocyte Esterase-Dipstick 500 /ul (Negative); Nitrite-Dipstick Negative (Negative); Occult Blood-Urine 10 /ul (Negative); Protein-Dipstick 100 mg/dl (Negative); Specific Gravity, Urine 1.015 (1.002-1.030); Urine Bilirubin Dipstick Negative (Negative); Urine Clarity Clear (Clear); Urine Urobilinogen Normal (Normal)
[2022-06-01 20:37] LABS: Bacteria 1+ /hpf (None Seen); Red Blood Cells-Urine 0-5 SEEN /hpf (0-5); Squamous Epithelial Cells - UA 0-5 SEEN /hpf (5-10); White Blood Cells 10-25 SEEN /hpf (0-5)
[2022-06-01 20:38] LABS: Hyaline Cast 0-5 SEEN /lpf (0-5)
[2022-06-01] MEDS: levoFLOXacin 750 MG Tablet PO (21:17)
[2022-06-01 21:18] VITALS: O2SAT 99
== END 2022-06-01 21:19 | disposition home or self-care (01) ==
PROVIDERS: Emergency Provider Emergency Medicine; PCP Family Medicine; Visit Provider Emergency Medicine
DX: K46.9 Unspecified abdominal hernia without obstruction or gangrene (principal); J44.9 Chronic obstructive pulmonary disease, unspecified; E11.22 Type 2 diabetes mellitus with diabetic chronic kidney disease; J18.9 Pneumonia, unspecified organism; I25.10 Atherosclerotic heart disease of native coronary artery without angina pectoris; D72.829 Elevated white blood cell count, unspecified; E78.5 Hyperlipidemia, unspecified; N18.9 Chronic kidney disease, unspecified; Z87.891 Personal history of nicotine dependence; I12.9 Hypertensive chronic kidney disease with stage 1 through stage 4 chronic kidney disease, or unspecified chronic kidney disease
CPT/HCPCS: 74176; 80048; 81001; 83605; 85025; 99284; A4216

== ENCOUNTER 2022-07-18 17:33 | Emergency (ER) | payer MEDICARE, MEDICAID, SELFPAY ==
[2017-12-22 12:49] VITALS: BMI 49.4
[2022-07-18 17:34] VITALS: BP 118/96; PULSE 91; RESP 16; TEMP 36.3; O2SAT 97
--- NOTE | 2022-07-18 17:50 | EX.ED.DYSGE1 ---
HPI <ELIO Vela - Last Filed: 07/18/22 18:20> History of Present Illness Chief Complaint: Rash Narrative Narrative: Patient is a 81-year-old female with history of COPD, tobacco use, hypertension, hyperlipidemia who presents to the emergency department with 1 week of painful rash to the left palm of her hand to her left wrist. Patient was concerned because 1 week ago she did go mushroom hunting in the [place] however she does wear gloves. Patient noticed that the pain in her hand was severe whenever she would grab something when she looked there was a rash. She did not receive the shingles vaccine, she denies any fever or chills. Patient is the pain shoots up to her shoulder. PFSH <ELIO Vela - Last Filed: 07/18/22 18:20> [facility] Medical History Anemia Asthma Atherosclerosis of coronary artery of [place] heart without angina pectoris Carotid artery stenosis Chronic hypoxemic respiratory failure Chronic respiratory failure with hypoxia CKD (chronic kidney disease) COPD (chronic obstructive pulmonary disease) COVID-19 virus detected (11/12/20) Diabetes Essential (primary) hypertension History of diabetes mellitus, type II History of gastroesophageal reflux (GERD) Hyperlipidemia Ileostomy present Morbid obesity Nicotine dependence Obesities, morbid Obstructive sleep apnea JESSICA (obstructive sleep apnea) Stage 2 moderate COPD by GOLD classification 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) Stenosis of right carotid artery Tobacco abuse Transient hypotension VBI (vertebrobasilar insufficiency) Viral URI Walker as ambulation aid Home Medications citalopram 20 mg tablet 20 mg PO DAILY depression 02/28/13 [History Last Taken 02/25/20] albuterol sulfate 90 mcg/actuation aerosol inhaler 2 puff inhalation Q6H PRN PRN Sob &/Or Wheezing 07/15/14 [History Last Taken 02/25/20] atorvastatin 40 mg tablet 40 mg PO QHS CHOLESTEROL 08/17/18 [History Last Taken 02/24/20] metoprolol succinate 25 mg tablet,extended release 24 hr 12.5 mg PO DAILY BP 12/06/19 [History Last Taken 02/25/20] oxybutynin chloride 10 mg tablet,extended release 24 hr 10 mg PO DAILY BLADDER 01/25/20 [History Last Taken 02/25/20] hydroxyzine HCl 25 mg tablet 25 mg PO QHS SLEEP 02/25/20 [History Last Taken 02/24/20] montelukast 10 mg tablet 10 mg PO QHS Allergies 03/11/20 [History Last Taken Unknown] omeprazole 40 mg capsule,delayed release 40 mg PO DAILY 03/11/20 [History Last Taken Unknown] fluticasone furoate 50 mcg/actuation blister powder for inhalation 2 mcg inhalation DAILY 11/10/20 [History Last Taken Unknown] formoterol fumarate 20 mcg/2 mL solution for nebulization 2 ml inhalation Q12H 11/10/20 [History Last Taken Unknown] clopidogrel 75 mg tablet 75 mg PO DAILY BLOOD THINNER #90 tabs 02/27/21 [Rx Last Taken Unknown] nystatin 100,000 unit/gram topical powder 1 applic topical DAILY #60 grams 06/14/21 [Rx Last Taken Unknown] budesonide 0.5 mg/2 mL suspension for nebulization 0.5 mg inhalation BID 12/16/21 [History Last Taken Unknown] fluticasone propionate 50 mcg/actuation nasal spray,suspension 2 spray intranasal DAILY 12/16/21 [History Last Taken Unknown] furosemide 40 mg tablet 20 mg PO DAILY 12/16/21 [History Last Taken Unknown] ipratropium 0.5 mg-albuterol 3 mg (2.5 mg base)/3 mL nebulization soln 3 ml inhalation 4X/DAY sob 12/16/21 [History Last Taken Unknown] loperamide 2 mg capsule 4 mg PO BID Diarrhea 12/16/21 [History Last Taken Unknown] midodrine 5 mg tablet 10 mg PO BID BP 12/16/21 [History Last Taken Unknown] nitroglycerin 0.4 mg sublingual tablet 0.4 mg sublingual Q5-15M PRN chest pain #25 tabs 12/16/21 [Rx Last Taken Unknown] pantoprazole 40 mg tablet,delayed release 40 mg PO BID 12/16/21 [History Last Taken Unknown] pramipexole 1 mg tablet 0.5 mg PO QHS 12/16/21 [History Last Taken Unknown] pregabalin 50 mg capsule 50 mg PO QHS 12/16/21 [History Last Taken Unknown] ranolazine 500 mg tablet,extended release,12 hr 500 mg PO BID 12/24/21 [History Last Taken Unknown] prednisone 10 mg tablet 50 mg PO DAILY 5 days #25 tabs 01/11/22 [Rx Last Taken Unknown] ondansetron 4 mg disintegrating tablet 4 mg PO Q8H PRN PRN Nausea #4 tabs 04/29/22 [Rx Last Taken Unknown] fludrocortisone 0.1 mg tablet 0.1 mg PO DAILY 06/01/22 [History Last Taken Unknown] levofloxacin 750 mg tablet 750 mg PO DAILY #7 tabs 06/01/22 [Rx Last Taken Unknown] ranolazine 500 mg tablet,extended release,12 hr 500 mg PO BID 06/01/22 [History Last Taken Unknown] hydrocodone-acetaminophen 5-325mg 5mg-325mg 1 tab PO Q8H 3 days #10 tabs 07/18/22 [Rx Last Taken Unknown] valacyclovir 1 gram tablet 1,000 mg PO TID 7 days #21 tabs 07/18/22 [Rx Last Taken Unknown] Allergy/AdvReac Type Severity Reaction Status Date / Time aspirin [ASA] Allergy Severe Hives Verified 07/18/22 17:37 ferrous sulfate Allergy Intermediate Hives Verified 07/18/22 17:37 bupropion [From Wellbutrin] Allergy headache Verified 07/18/22 17:37 codeine Allergy Hives Verified 07/18/22 17:37 meperidine [From Demerol] Allergy PT UNABLE Verified 07/18/22 17:37 TO RESPOND-NEEDS F/U meperidine HCl [From Demerol] Allergy Hives Verified 07/18/22 17:37 naproxen sodium Allergy Hives Verified 07/18/22 17:37 [From Anaprox] propoxyphene HCl Allergy Hives Verified 07/18/22 17:37 [From Darvon] Sulfa (Sulfonamide Allergy hives, Verified 07/18/22 17:37 Antibiotics) trouble breathing gabapentin AdvReac Intermediate Mental Verified 07/18/22 17:37 status change, foggy headed morphine AdvReac NEEDS Verified 07/18/22 17:37 FOLLOW-UP NSAIDS (Non-Steroidal AdvReac Hives Verified 07/18/22 17:37 Anti-Inflamma salicylates AdvReac NEEDS Verified 07/18/22 17:37 FOLLOW-UP Family History Mother CVA (cerebral vascular accident) Father Asthma Hypertension High blood cholesterol level Arthritis Surgical History H/O bariatric surgery History of section History of cholecystectomy History of coronary artery stent placement (12/11/19) History of right knee joint replacement History of right-sided carotid endarterectomy (07/2014) left subclavian artery stent (03/2017) Social History Smoking Status: Current some day smoker tobacco type: cigarettes second hand exposure: Yes alcohol intake: never substance use type: does not use caffeine: Yes Type: coffee Number of servings: 6 and tea Number of servings: 2 what type of physical activity do you participate in: none ROS <ELIO Vela - Last Filed: 07/18/22 18:20> ROS ED ROS Narrative Constitutional: Negative for fever, chills, weight loss, weakness Eyes: Negative for vision loss, vision change, double vision ENT: Negative for any sore throat, ear pain, congestion Cardiovascular: Negative for any chest pain, tightness, palpitations Respiratory: Negative for any cough, sputum production, hemoptysis, dyspnea, dyspnea on exertion, orthopnea Gastrointestinal: Negative for any abdominal pain, nausea, vomiting, diarrhea, constipation, blood in stool, blood in vomit : Negative for any urinary frequency, dysuria, retention, blood in urine Muscle skeletal: Negative for any muscle joint pain, stiffness, myalgias, arthralgias, neck pain, back pain Neurological: Negative for any headache, syncope, numbness or tingling, dizziness Skin: Negative for any lumps, itching, abrasions, lacerations. Positive for painful rash to the palm and wrist Psychiatric: Negative for any depression, anxiety, stress, suicidal ideation, homicidal ideation Hematologic: Negative for any easy bruising, excessive bruising, easy bleeding Allergies: Negative for any eczema, hives, rash EXAM <ELIO Vela - Last Filed: 07/18/22 18:20> Physical Exam Narrative Exam Narrative: Vital signs reviewed. Extremities: No peripheral edema, no signs of gross trauma or deformity. Active full range of motion of all extremities. Neuro: Cranial nerves II through XII intact, no focal neurological deficits. Skin: Clean dry and intact with no purpura, petechiae, vesicles. Patient has white pustules around redness on the palm of her hand within a straight line she does have a similar rash to her wrist all on the anterior aspect. This is painful to touch. She denies any itching. There is no gross drainage. This is consistent with shingles. Backs/flank: No CVA tenderness, no midline spinal tenderness, no deformity. Psych: Normal mood and affect. No SI, HI or acute psychosis. Const Vital Signs: 07/18/22 17:34 Temperature 97.4 F L Temperature Source Temporal Pulse Rate 91 Respiratory Rate 16 Blood Pressure 118/96 H Blood Pressure Mean 103 Pulse Ox 97 Oxygen Delivery Method Room Air Positive well nourished and well developed General Appearance ED: well developed <Dr. Vero Montenegro MD - Last Filed: 07/19/22 00:05> Physical Exam Const Vital Signs: 07/18/22 17:34 Temperature 97.4 F L Temperature Source Temporal Pulse Rate 91 Respiratory Rate 16 Blood Pressure 118/96 H Blood Pressure Mean 103 Pulse Ox 97 Oxygen Delivery Method Room Air MDM <ELIO Vela - Last Filed: 07/18/22 18:20> MDM Treatment and Re-Evaluation :: Patient appears well, patient appears nontoxic, vital signs are stable. Patient presents to the emergency department with complaints of pain to the left palm of her hand that radiates to her left wrist secondary to a rash. These pains do shoot up her left arm. Physical examination consistent with shingles. Differential diagnosis include contact dermatitis, poison dain, poison oak. Patient has no itching however she does have significant pain. Patient has not received her shingles vaccine. At this time, patient be given acyclovir here secondary to not having valacyclovir in our formulary. Patient will be given a prescription for acyclovir 1 g 3 times a day for 1 week. She will also be given pain medicine. She will follow-up closely with her PCP. She was given strict return precautions to return for any worsening pain, fever chills nausea vomiting. Patient stable for discharge. Patient will keep this area clean, she will keep it wrapped. <Dr. Vero Montenegro MD - Last Filed: 07/19/22 00:05> MDM Treatment and Re-Evaluation :: Patient appears well, patient appears nontoxic, vital signs are stable. Patient presents to the emergency department with complaints of pain to the left palm of her hand that radiates to her left wrist secondary to a rash. These pains do shoot up her left arm. Physical examination consistent with shingles. Differential diagnosis include contact dermatitis, poison dain, poison oak. Patient has no itching however she does have significant pain. Patient has not received her shingles vaccine. At this time, patient be given acyclovir here secondary to not having valacyclovir in our formulary. Patient will be given a prescription for acyclovir 1 g 3 times a day for 1 week. She will also be given pain medicine. She will follow-up closely with her PCP. She was given strict return precautions to return for any worsening pain, fever chills nausea vomiting. Patient stable for discharge. Patient will keep this area clean, she will keep it wrapped. Patient seen and evaluated with DEDRICK. I personally interviewed and examined the patient. I was involved in all aspects of patient's orders, interpretation of results, and treatment. Patient presents with painful rash to the left upper extremity for the past week. She noted pain down her left arm followed by a rash around her wrist and on her palm. Patient sitting upright in bed no acute distress. Head and neck examination unremarkable. Heart is regular rate and rhythm. Lung sounds are clear. Left upper extremity examination reveals rash consistent with shingles on her palm and volar left wrist. The lesions on the wrist are already scabbed and drying. She continues with vesicle lesions on the palm of her hand. No sign of secondary infection at this time. Patient be treated with antiviral along with analgesics. Wound care discussed and importance of keeping lesions covered and avoiding exposure to immunocompromised or people. Return instructions given. Discharge Plan Triage Chief Complaint: Rash ED Midlevel Provider: Fuad Foreman ED Provider: Vero Montenegro Dx/Rx/DC Orders Clinical Impression: Acute herpes zoster neuropathy, Shingles Instructions: ED Shingles (Herpes Zoster) Prescriptions: New hydrocodone-acetaminophen 5-325 mg tablet 1 tab PO Q8H 3 Days Qty: 10 0RF valacyclovir 1 gram tablet 1,000 mg PO TID 7 Days Qty: 21 0RF No Action oxybutynin chloride 10 mg tablet extended release 24hr 10 mg PO DAILY midodrine 5 mg tablet 10 mg PO BID omeprazole 40 mg capsule,delayed release(DR/EC) 40 mg PO DAILY budesonide 0.5 mg/2 mL suspension for nebulization 0.5 mg inhalation BID fluticasone propionate 50 mcg/actuation spray,suspension 2 spray intranasal DAILY Rx Instructions: administer into each nostril furosemide 40 mg tablet 20 mg PO DAILY pantoprazole 40 mg tablet,delayed release (DR/EC) 40 mg PO BID pramipexole 1 mg tablet 0.5 mg PO QHS pregabalin 50 mg capsule 50 mg PO QHS nitroglycerin 0.4 mg tablet, sublingual 0.4 mg sublingual Q5-15M PRN (Reason: chest pain) Qty: 25 3RF fludrocortisone 0.1 mg tablet 0.1 mg PO DAILY citalopram 20 MG tablet 20 mg PO DAILY Label Comments: ANTI-DEPRESSANT albuterol sulfate 1 PUFF inhaler 2 puff INHALATION Q6H PRN PRN (Reason: Sob &/Or Wheezing) Label Comments: BREATHING MEDICATION montelukast 10 mg tablet 10 mg PO QHS Label Comments: Asthma atorvastatin 40 MG tablet 40 mg PO QHS Rx Instructions: cholesterol hydroxyzine HCl 25 MG tablet 25 mg PO QHS loperamide 2 mg capsule 4 mg PO BID formoterol fumarate 20 mcg/2 mL Solution For Nebulization 2 ml INHALATION Q12H fluticasone furoate 50 mcg/actuation Blister With Device 2 mcg INHALATION DAILY ipratropium-albuterol 0.5 mg-3 mg(2.5 mg base)/3 mL solution for nebulization 3 ml INHALATION 4X/DAY nystatin 100,000 unit/gram powder 1 applic topical DAILY Qty: 60 0RF prednisone 10 mg tablet 50 mg PO DAILY 5 Days Qty: 25 0RF ondansetron 4 mg tablet,disintegrating 4 mg PO Q8H PRN PRN (Reason: Nausea) Qty: 4 0RF ranolazine 500 mg Tablet Extended Release 12 Hr 500 mg PO BID levofloxacin 750 mg tablet 750 mg PO DAILY Qty: 7 0RF metoprolol succinate 25 mg tablet extended release 24 hr 12.5 mg PO DAILY Rx Instructions: HOLD IF SPB <100 OR HR <60 clopidogrel 75 mg tablet 75 mg PO DAILY Qty: 90 3RF ranolazine 500 mg tablet extended release 12 hr 500 mg PO BID Primary Care Provider: Fuad Bustos Referrals: Fuad Bustos MD [Primary Care Provider] - Activity Restrictions/Additional Instructions: Keep the area wrapped. Take the valacyclovir 3 times a day, you may use the [place] as needed. You have a fever, chills, worsening pain please return Disposition Disposition: Home, Self Care Discharge Date/Time: 07/18/22 18:49
[2022-07-18] MEDS: HYDROcodone Bitartrate/Apap 5/325 Tablet PO (18:26)
[2022-07-18] MEDS: Acyclovir 800 MG Tablet PO (18:26)
== END 2022-07-18 18:49 | disposition home or self-care (01) ==
LOC: ED 18:23
PROVIDERS: Emergency Provider Emergency Medicine; PCP Family Medicine; Visit Provider Emergency Medicine
DX: B02.23 Postherpetic polyneuropathy (principal); J44.9 Chronic obstructive pulmonary disease, unspecified; E11.22 Type 2 diabetes mellitus with diabetic chronic kidney disease; I25.10 Atherosclerotic heart disease of native coronary artery without angina pectoris; E78.5 Hyperlipidemia, unspecified; I12.9 Hypertensive chronic kidney disease with stage 1 through stage 4 chronic kidney disease, or unspecified chronic kidney disease; M25.532 Pain in left wrist; N18.9 Chronic kidney disease, unspecified; Z79.899 Other long term (current) drug therapy; F17.210 Nicotine dependence, cigarettes, uncomplicated
CPT/HCPCS: 99283

== ENCOUNTER 2022-07-22 09:15 | Inpatient (IN) | payer MEDICARE, MEDICAID, SELFPAY ==
[2017-12-22 12:49] VITALS: BMI 49.4
[2022-07-22] VITALS (30 sets, daily range): BP systolic 109–184; BP diastolic 57–113; PULSE 108–130; RESP 21–30; TEMP 36.1–37.2; O2SAT 74–98; BMI 40.0
--- NOTE | 2022-07-22 10:05 | EX.ED.GENINJ ---
HPI History of Present Illness Chief Complaint: Wound Check [facility] Medical History Anemia Asthma Atherosclerosis of coronary artery of [place] heart without angina pectoris Carotid artery stenosis Chronic hypoxemic respiratory failure Chronic respiratory failure with hypoxia CKD (chronic kidney disease) COPD (chronic obstructive pulmonary disease) COVID-19 virus detected (11/12/20) Diabetes Essential (primary) hypertension History of diabetes mellitus, type II History of gastroesophageal reflux (GERD) Hyperlipidemia Ileostomy present Morbid obesity Nicotine dependence Obesities, morbid Obstructive sleep apnea JESSICA (obstructive sleep apnea) Stage 2 moderate COPD by GOLD classification 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) Stenosis of right carotid artery Tobacco abuse Transient hypotension VBI (vertebrobasilar insufficiency) Viral URI Walker as ambulation aid Home Medications citalopram 20 mg tablet 20 mg PO DAILY depression 02/28/13 [History Last Taken 02/25/20] albuterol sulfate 90 mcg/actuation aerosol inhaler 2 puff inhalation Q4H PRN PRN Sob &/Or Wheezing 07/15/14 [History Last Taken 02/25/20] atorvastatin 40 mg tablet 40 mg PO QHS CHOLESTEROL 08/17/18 [History Last Taken 02/24/20] metoprolol succinate 25 mg tablet,extended release 24 hr 12.5 mg PO DAILY BP 12/06/19 [History Last Taken 02/25/20] montelukast 10 mg tablet 10 mg PO QHS Allergies 03/11/20 [History Last Taken Unknown] clopidogrel 75 mg tablet 75 mg PO DAILY BLOOD THINNER #90 tabs 02/27/21 [Rx Last Taken Unknown] budesonide 0.5 mg/2 mL suspension for nebulization 0.5 mg inhalation BID 12/16/21 [History Last Taken Unknown] fluticasone propionate 50 mcg/actuation nasal spray,suspension 2 spray intranasal DAILY 12/16/21 [History Last Taken Unknown] furosemide 40 mg tablet 20 mg PO MOWEFR 12/16/21 [History Last Taken Unknown] loperamide 2 mg capsule 4 mg PO BIDCM Diarrhea 12/16/21 [History Last Taken Unknown] midodrine 5 mg tablet 10 mg PO BID BP 12/16/21 [History Last Taken Unknown] nitroglycerin 0.4 mg sublingual tablet 0.4 mg sublingual Q5-15M PRN chest pain #25 tabs 12/16/21 [Rx Last Taken Unknown] pantoprazole 40 mg tablet,delayed release 40 mg PO BID 12/16/21 [History Last Taken Unknown] pramipexole 1 mg tablet 0.5 mg PO QHS 12/16/21 [History Last Taken Unknown] pregabalin 50 mg capsule 50 mg PO QHS 12/16/21 [History Last Taken Unknown] ranolazine 500 mg tablet,extended release,12 hr 500 mg PO BID 12/24/21 [History Last Taken Unknown] ondansetron 4 mg disintegrating tablet 4 mg PO Q8H PRN PRN Nausea #4 tabs 04/29/22 [Rx Last Taken Unknown] fludrocortisone 0.1 mg tablet 0.1 mg PO DAILY 06/01/22 [History Last Taken Unknown] valacyclovir 1 gram tablet 1,000 mg PO TID 7 days #21 tabs 07/18/22 [Rx Last Taken Unknown] trazodone 50 mg tablet 50 mg PO QHS 07/22/22 [History Last Taken Unknown] Allergy/AdvReac Type Severity Reaction Status Date / Time aspirin [ASA] Allergy Severe Hives Verified 07/22/22 09:23 ferrous sulfate Allergy Intermediate Hives Verified 07/22/22 09:23 bupropion [From Wellbutrin] Allergy headache Verified 07/22/22 09:23 codeine Allergy Hives Verified 07/22/22 09:23 meperidine [From Demerol] Allergy PT UNABLE Verified 07/22/22 09:23 TO RESPOND-NEEDS F/U meperidine HCl [From Demerol] Allergy Hives Verified 07/22/22 09:23 naproxen sodium Allergy Hives Verified 07/22/22 09:23 [From Anaprox] propoxyphene HCl Allergy Hives Verified 07/22/22 09:23 [From Darvon] Sulfa (Sulfonamide Allergy hives, Verified 07/22/22 09:23 Antibiotics) trouble breathing gabapentin AdvReac Intermediate Mental Verified 07/22/22 09:23 status change, foggy headed morphine AdvReac NEEDS Verified 07/22/22 09:23 FOLLOW-UP NSAIDS (Non-Steroidal AdvReac Hives Verified 07/22/22 09:23 Anti-Inflamma salicylates AdvReac NEEDS Verified 07/22/22 09:23 FOLLOW-UP Family History Mother CVA (cerebral vascular accident) Father Asthma Hypertension High blood cholesterol level Arthritis Surgical History H/O bariatric surgery History of section History of cholecystectomy History of coronary artery stent placement (12/11/19) History of right knee joint replacement History of right-sided carotid endarterectomy (07/2014) left subclavian artery stent (03/2017) Social History Smoking Status: Current some day smoker tobacco type: cigarettes second hand exposure: Yes alcohol intake: never substance use type: does not use caffeine: Yes Type: coffee Number of servings: 6 and tea Number of servings: 2 what type of physical activity do you participate in: none EXAM Physical Exam Const Vital Signs: 07/22/22 09:16 07/22/22 10:33 07/22/22 11:02 Temperature 97.6 F L Temperature Source Temporal Pulse Rate 121 H 116 H Respiratory Rate 22 H 27 H Blood Pressure 110/57 L 124/68 H Blood Pressure Mean 74 86 Pulse Ox 85 93 93 Oxygen Delivery Method Room Air Nasal Cannula Nasal Cannula Oxygen Flow Rate (L/min) 6 6 Fraction of Inspired Oxygen (FIO2) 07/22/22 13:50 07/22/22 13:59 07/22/22 13:04 Temperature 98 F Temperature Source Temporal Pulse Rate 110 H 118 H 118 H Respiratory Rate 24 H 28 H 26 H Blood Pressure 184/97 H 133/96 H 167/113 H Blood Pressure Mean 126 108 131 Pulse Ox 96 95 92 Oxygen Delivery Method Nasal Cannula Nasal Cannula Nasal Cannula Oxygen Flow Rate (L/min) 5 5 6 Fraction of Inspired Oxygen (FIO2) 07/22/22 14:43 07/22/22 14:59 07/22/22 15:00 Temperature 98.9 F 98.9 F Temperature Source Temporal Temporal Pulse Rate 114 H 111 H 112 H Respiratory Rate 23 H 25 H 23 H Blood Pressure 159/106 H 159/106 H 159/106 H Blood Pressure Mean 123 123 123 Pulse Ox 95 93 94 Oxygen Delivery Method Nasal Cannula Nasal Cannula Nasal Cannula Oxygen Flow Rate (L/min) 5 6 6 Fraction of Inspired Oxygen (FIO2) 07/22/22 15:18 07/22/22 14:58 07/22/22 16:00 Temperature 98.1 F Temperature Source Temporal Pulse Rate 110 H 112 H 108 H Respiratory Rate 24 H 24 H 23 H Blood Pressure 154/94 H 159/106 H 156/82 H Blood Pressure Mean 114 123 106 Pulse Ox 95 95 98 Oxygen Delivery Method Nasal Cannula Nasal Cannula Nasal Cannula Oxygen Flow Rate (L/min) 6 6 6 Fraction of Inspired Oxygen (FIO2) 07/22/22 16:33 07/22/22 17:00 07/22/22 17:00 Temperature 98.7 F Temperature Source Pulse Rate 108 H Respiratory Rate 21 H Blood Pressure 156/82 H Blood Pressure Mean 106 Pulse Ox 98 86 89 Oxygen Delivery Method Nasal Cannula High Flow Oxygen Flow Rate (L/min) 6 10 Fraction of Inspired Oxygen (FIO2) 07/22/22 17:00 07/22/22 17:01 07/22/22 17:57 Temperature 99 F Temperature Source Temporal Pulse Rate 113 H Respiratory Rate 28 H Blood Pressure 132/79 H Blood Pressure Mean 96 Pulse Ox 91 91 80 Oxygen Delivery Method High Flow High Flow High Flow Oxygen Flow Rate (L/min) 12 12 12 Fraction of Inspired Oxygen (FIO2) 07/22/22 18:04 07/22/22 18:06 07/22/22 18:15 Temperature 98 F Temperature Source Temporal Pulse Rate 116 H 117 H Respiratory Rate 29 H 28 H Blood Pressure 149/111 H 149/111 H Blood Pressure Mean 123 123 Pulse Ox 77 74 89 Oxygen Delivery Method High Flow High Flow Non-Rebreather Oxygen Flow Rate (L/min) 15 15 Fraction of Inspired Oxygen (FIO2) 07/22/22 18:17 07/22/22 18:24 07/22/22 18:36 Temperature Temperature Source Pulse Rate 115 H 117 H Respiratory Rate 28 H 27 H Blood Pressure 140/80 H 140/80 H Blood Pressure Mean 100 100 Pulse Ox 91 93 96 Oxygen Delivery Method Non-Rebreather Non-Rebreather Airvo Oxygen Flow Rate (L/min) 50 Fraction of Inspired Oxygen (FIO2) 60 07/22/22 18:39 07/22/22 18:30 07/22/22 18:58 Temperature Temperature Source Pulse Rate 117 H 118 H Respiratory Rate 24 H 22 H Blood Pressure 140/80 H Blood Pressure Mean 100 Pulse Ox 96 97 93 Oxygen Delivery Method Airvo Airvo Oxygen Flow Rate (L/min) 50 50 Fraction of Inspired Oxygen (FIO2) 60 60 60 07/22/22 19:04 07/22/22 20:21 07/22/22 21:02 Temperature 97 F L 98.2 F Temperature Source Temporal Oral Pulse Rate 118 H 123 H 123 H Respiratory Rate 29 H 28 H 22 H Blood Pressure 121/96 H 137/109 H 109/66 Blood Pressure Mean 104 118 80 Pulse Ox 94 97 95 Oxygen Delivery Method Airvo Airvo Airvo Oxygen Flow Rate (L/min) 50 Fraction of Inspired Oxygen (FIO2) 60 [facility] [place] Narrative Medical decision making narrative: HISTORY OF PRESENT ILLNESS: 81-year-old female here with concern for blood in blood clot the colostomy bag starting last night. She also endorses back pain. Patient further states patient has had dry heaving for 24 hours. Afterwards they noted blood in her ostomy. Patient planes of diffuse abdominal pain and back pain. Denies any fever. Notes wet cough. Denies any chest pain. Notes history of COPD and is on nighttime oxygen of 2-1/2 L. Notes taking clopidogrel but denies any other blood thinners. Patient denies any saddle anesthesia, urinary tension, bowel or bladder incontinence, lower extremity weakness, fever or IV drug use, no recent spinal manipulation or surgery, no recent urinary catheterization. Per NH there was blood in her ostomy. Abdominal pain. Got norco at REVIEW OF SYSTEMS: Pertinent positives: Abdominal pain, blood in ostomy, cough, nausea vomiting Pertinent negatives: Fever, chest pain PHYSICAL EXAM: Nursing triage notes reviewed, Vital signs reviewed Constitutional: please see [facility] HENT: MMM, pupils are pinpoint Eyes: Pupils equal round and reactive to light, Extraocular muscles intact Neck: No stridor, no JVD, full neck ROM Lungs: Clear to auscultation, No wheezing or rales. No increased work of breathing, no conversational dyspnea, no accessory muscle use, no nasal flaring. No respiratory distress noted Heart: Regular rate and rhythm, No murmurs, No rubs and No gallops, 2+ distal pulses (radial, femoral, posterior tibial) in all extremities Abdomen: Soft, there is no tenderness, rigidity, rebound or guarding, no obvious peritoneal signs, no palpable pulsatile abdominal masses, no auscultated abdominal bruit, colostomy bag in place with avinash blood noted : No CVAT Extremities: No edema Neuro: Intact sensation L1-S1 dermatomal distributions. Intact 5/5 strength in hip flexion (T12-L3). Knee extension (L2-L4). Ankle dorsiflexion (L4-L5). Ankle plantar flexion (S1). Great toe extension (L5). 2+ patellar and Achilles DTRs. Skin: No rash or lesions noted MEDICAL DECISION MAKING: Chief Complaint: abdominal pain, Blood in colostomy bag External records reviewed: CT abdomen from May 2022 shows no acute process, postop changes Last EGD done by Dr. Roth 2019, showed normal esophagus, normal stomach MDM Narrative: The patient was initially tachycardic, intermittently hypoxic and tachypneic. She seemed uncomfortable. She had pinpoint pupils. I considered the following differential diagnosis: Intra-abdominal pathology (obstruction, perforation), mesenteric ischemia, GI bleed, pneumonia, anemia, electrolyte disturbance, kidney failure, I obtained a broad lab and imaging work-up to further elucidate the etiology of the patient's complaints. IV access was difficult recommended. We initially obtain labs but cannot obtain lactate or blood cultures. CT scan was obtained and was concerning for mesenteric ischemia. I initially called the patient preferred medical institution [facility]. I spoke to Dr. Durant (General Surgeon) who conditionally excepted the patient however the patient preferred to be admitted under her primary surgeon Dr. Finney (General Surgeon). I called Dr. Finney who declined to except patient's case given there is no bed availability at [facility]. I spoke to our surgeon here Dr. Roth who recommended emergent [facility] transport for possible vascular surgery invention. 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 When Dr. Roth evaluated the patient he discussed the patient's options including [facility] transport, vascular surgery or potential intensive/risky bowel resection here. After hearing her options patient decided to forego any definitive surgical intervention. The patient was alert and orient x3 no capacity to make her medical decisions. This decision was also communicated with the patient's daughter who agreed that is the best option given the patient's current CODE STATUS is DNR CC. The patient was continued on IV narcotic pain medicine including Dilaudid. Patient did have worsening oxygen saturations which required initially more nasal cannula oxygen then high flow nasal cannula. Patient requested to be placed on hospice. I discussed the case initially with internal medicine physician Dr. Renteria who preferred the patient to remain in the ED to await hospice evaluation here possible direct admission to hospice. I was unable to speak with hospice. At this point Dr. Renteria shift had ended. I spoke wit Dr. Hoffman who excepted the patient's case. Patient was admitted to the medical service. Hospice evaluation tomorrow morning at 10 AM Factors affecting care: Hyperlipidemia, CAD, hyperlipidemia Social determinants of health: elderly History obtained from others: EMS, patient's daughter, NH Shared decision making: I will have a discussion with the patient and or visitors regarding risk/benefits of further testing or admission. They will be made aware of of the risk/benefits inherent in this decision they will be given the opportunity to voice understanding. Consults: General Surgery Goals of care discussion: Patient agreed to be DNR CC and would want to enroll in hospice. Lab Data Attestation: I reviewed the patient's lab results. Lab results narrative: EKG with sinus tachycardia, normal axis, no intervals, no STEMI CBC with leukocytosis, no anemia, no thrombocytopenia Coags WNL BMP without electrolyte abnormalities, improved CKD, no anion gap to suggest end organ hypoperfusion, acidemia Lipase is wnl indicating no pancreatic inflammation. LFTs show no evidence of hepatobiliary pathology. Lactate is wnl indicating no end-organ hypoperfusion and/or hypoxia. Urinalysis without evidence of infection Labs: Laboratory Results - last 24 hr 07/22/22 07/22/22 07/22/22 11:40 11:40 11:40 WBC 14.3 H RBC 4.38 Hgb 12.7 Hct 40.2 MCV 91.8 MCH 29.0 MCHC 31.6 L RDW Std Deviation 49.5 H RDW Coeff of [place] 14.6 Plt Count 244 MPV 8.9 Immature Gran % (Auto) 0.400 Neut % (Auto) 85.7 H Lymph % (Auto) 3.6 L [place] % (Auto) 8.4 Eos % (Auto) 1.6 Baso % (Auto) 0.3 Absolute Neuts (auto) 12.3 H Absolute Lymphs (auto) 0.52 L Nucleated RBC % 0 Differential Comment COMMENT PT 14.6 INR 1.1 APTT 35.0 Sodium 139 Potassium 4.1 Chloride 107 Carbon Dioxide 25.0 Anion Gap 7 BUN 20 H Creatinine 1.24 H Estim Creat Clear Calc 25.99 Est GFR (MDRD) Af Amer 53 L Est GFR (MDRD) Non-Af 44 L BUN/Creatinine Ratio 16.1 Glucose 99 Lactic Acid Calcium 8.5 Total Bilirubin 0.90 AST 28 ALT 15 Alkaline Phosphatase 116 Troponin I High Sens 26 Total Protein 6.9 Albumin 2.7 L Globulin 4.2 Albumin/Globulin Ratio 0.6 L Lipase 10 L Urine Color Urine Clarity Urine pH Ur Specific [place] Urine Protein Urine Glucose (UA) Urine Ketones Urine Occult Blood Urine Nitrite Urine Bilirubin Urine Urobilinogen Ur Leukocyte Esterase Urine RBC Urine WBC Ur Squamous Epith Cells Urine Bacteria Hyaline Casts Urine Mucus 07/22/22 07/22/22 13:00 14:56 WBC RBC Hgb Hct MCV MCH MCHC RDW Std Deviation RDW Coeff of [place] Plt Count MPV Immature Gran % (Auto) Neut % (Auto) Lymph % (Auto) [place] % (Auto) Eos % (Auto) Baso % (Auto) Absolute Neuts (auto) Absolute Lymphs (auto) Nucleated RBC % Differential Comment PT INR APTT Sodium Potassium Chloride Carbon Dioxide Anion Gap BUN Creatinine Estim Creat Clear Calc Est GFR (MDRD) Af Amer Est GFR (MDRD) Non-Af BUN/Creatinine Ratio Glucose Lactic Acid 1.0 Calcium Total Bilirubin AST ALT Alkaline Phosphatase Troponin I High Sens Total Protein Albumin Globulin Albumin/Globulin Ratio Lipase Urine Color Yellow Urine Clarity Sl. Cloudy Urine pH 5.0 Ur Specific Marshall 1.020 Urine Protein 500 H Urine Glucose (UA) Normal Urine Ketones Negative Urine Occult Blood 10 H Urine Nitrite Negative Urine Bilirubin Negative Urine Urobilinogen Normal Ur Leukocyte Esterase 25 H Urine RBC 0 SEEN Urine WBC 0-5 SEEN Ur Squamous Epith Cells 0-5 SEEN Urine Bacteria 0 SEEN Hyaline Casts 0-5 SEEN Urine Mucus 1+ Radiography Chest X-Ray - ED: Read by ED Physician Diagnostic Testing: Clinical Impression(s) from Imaging Studies Abdomen/Pelvis CT 07/22/22 10:35 IMPRESSION: Findings suggestive of a ischemic bowel with air in the portal venous system in the peripheral branches of the liver as described. There is diffuse thickening and increased markings in the surrounding fat in the jejunal loops distally and ileum. Marked degree of atherosclerotic disease involving the abdominal aorta and the major visceral branches including the celiac trunk and the superior mesenteric artery. N.B. : The above Results were Read Back by Emanuel Ventura MD to Inocencio Anderson DO, and understanding confirmed on 07/22/2022 14:02:12 (ET). Electronically Signed: Emanuel Ventura MD at 14:03 EDT , ADDENDUM: 07/22/22 1410 IMPRESSION: Findings suggestive of a ischemic bowel with air in the portal venous system in the peripheral branches of the liver as described. There is diffuse thickening and increased markings in the surrounding fat in the jejunal loops distally and ileum. Marked degree of atherosclerotic disease involving the abdominal aorta and the major visceral branches including the celiac trunk and the superior mesenteric artery. N.B. : The above Results were Read Back by Emanuel Ventura MD to Inocencio Anderson DO, and understanding confirmed on 07/22/2022 14:02:12 (ET). Electronically Signed: Emanuel Ventura MD at 14:03 EDT , Chest X-Ray 07/22/22 13:30 IMPRESSION: Mild increased markings at the lung bases slightly worse on the left side suggestive of either atelectasis and/or scarring. Early infiltrate in the right upper lobe abutting the right minor fissure. Radiographic follow-up is recommended. Electronically Signed: Emanuel Ventura MD at 13:54 EDT , Discharge Plan Disposition Disposition: Acute Care [facility] Discharge Date/Time: 07/22/22 21:16
--- NOTE | 2022-07-22 10:33 | EKG12_ITS ---
Test Reason : ABD PAIN Blood Pressure : / mmHG Vent. Rate : 119 BPM Atrial Rate : 119 BPM P-R Int : 170 ms QRS Dur : 084 ms QT Int : 328 ms P-R-T Axes : 071 063 177 degrees QTc Int : 461 ms Sinus tachycardia Septal infarct , age undetermined ST & T wave abnormality, consider lateral ischemia Abnormal ECG Confirmed by SANDI LEI, WILBERTO ([id number]), news video editor ANDIE GARY ([id number]) on 07/26/2022 11:31:49 AM Referred By: JEF Confirmed By:WILBERTO JUNIOR MD
--- NOTE | 2022-07-22 10:35 | CT_ITS ---
STUDY: CT ABDOMEN AND PELVIS WITH CONTRAST REASON FOR EXAM: Female, 81 years old. Diffuse abdominal pain, blood in colostomy bag RADIATION DOSAGE (If Supplied By Facility): CTDIvol = ( 16.8 ) mGy, DLP = ( 1109.26 ) mGycm TECHNIQUE: Transaxial images were obtained from the dome of the diaphragm to the symphysis pubis without oral contrast. IV 100mL Isovue-300 was administered. Sagittal and coronal images were reconstructed. Individualized dose optimization techniques were used for this CT. COMPARISON: Comparison is made with prior study of June 01, 2022. FINDINGS: Mild increased markings in the lower lobes although there has been a marked improvement as compared to prior study. Coronary artery calcification. There is calcification of the mitral valve annulus. Air is seen within the liver most likely in the vascular spaces. This extends into the surface of the liver. There are surgical clips in the gallbladder fossa consistent with a prior cholecystectomy. Mild dilatation of the common bile duct in keeping with prior cholecystectomy. Normal spleen. Normal pancreas. Normal bilateral adrenal glands. Stable right renal cysts. Normal left kidney. There is a small hiatal hernia. Findings suggestive of prior subtotal gastrectomy. There are multiple abnormal appearing small bowel loops in the distal jejunum and ileum with thickened jara. There is evidence of thickening of the wall of the small bowel loops as well as increased markings in the surrounding peritoneal fat. Ischemic changes to be ruled out. Once again, a colostomy is seen in the right lower quadrant. The appendix is visualized and appears normal. There is diffuse extensive atherosclerotic calcification of the abdominal aorta and its major visceral branches., without a demonstrated aneurysm. Normal inferior vena cava. Normal retroperitoneum. Normal urinary bladder. There is absence of the uterus consistent with a prior hysterectomy. Normal abdominal wall. There are diffuse degenerative changes of the visualized lumbar spine. CT/Abdomen/Pelvis W IV Cont ONLY IMPRESSION: Findings suggestive of a ischemic bowel with air in the portal venous system in the peripheral branches of the liver as described. There is diffuse thickening and increased markings in the surrounding fat in the jejunal loops distally and ileum. Marked degree of atherosclerotic disease involving the abdominal aorta and the major visceral branches including the celiac trunk and the superior mesenteric artery. N.B. : The above Results were Read Back by Emanuel Ventura MD to Inocencio Anderson DO, and understanding confirmed on 07/22/2022 14:02:12 (ET). Electronically Signed: Emanuel Ventura MD at 14:03 EDT ,
[2022-07-22] MEDS: Ondansetron 4 MG/2 ML Vial IV (10:49)
[2022-07-22] MEDS: 0.9% Normal Saline 1,000 ML 999 ML IV ×2 (10:50→14:50)
[2022-07-22 12:11] LABS: Absolute Lymphocyte Count 0.52 X10^3/uL (0.83-4.51); Absolute Neutrophil Count 12.3 X10^3/uL (2.0-7.7); Basophil# 0.05 X10^3/uL; Basophil% 0.3 % (0-1); Eosinophil# 0.23 X10^3/uL; Eosinophils% 1.6 % (0-5); Hematocrit 40.2 % (37-47); Hemoglobin 12.7 g/dL (12.0-15.0); Lymphocyte # 0.52 X10^3/ul (0.83-4.51); Lymphocyte % 3.6 % (19-41); Mean Corp Hgb Conc 31.6 g/dL (32-36); Mean Corpuscular Volume 91.8 fL (81-99); Mean Platelet Vol. 8.9 fl (6.2-12.0); Monocyte% 8.4 % (0-10); NRBC Flagged by Analyzer 0 % (0-5); Neutrophil # 12.26 X10^3/uL (2.7-7.7); Neutrophil % 85.7 % (47-70); POSITIVE DIFFERENTIAL YES; Platelet Count 244 K/mm3 (150-450); RBC Distribution Width CV 14.6 % (11.6-14.6); RBC Distribution Width SD 49.5 fl (35.1-43.9); Red Blood Count 4.38 M/mm3 (4.2-5.4); White Blood Count 14.3 K/mm3 (4.4-11.0)
[2022-07-22 12:18] LABS: International Normalized Ratio 1.1; Prothrombin Time (Protime)PT. 14.6 SECONDS (11.7-14.9)
[2022-07-22 12:19] LABS: Differential Indicated SCAN CRITERIA MET
[2022-07-22 12:40] LABS: ALB/GLOB Ratio 0.6 RATIO (0.9-2.4); AST(SGOT) 28 U/L (15-37); Alanine Aminotransfer ALT/SGPT 15 U/L (13-56); Albumin, Serum 2.7 g/dL (3.2-5.0); Alkaline Phosphatase 116 U/L (45-117); Anion Gap 7 (5-15); BUN 20 mg/dL (7-18); BUN/Creat Ratio 16.1 RATIO (10-20); Calcium,Total 8.5 mg/dL (8.5-10.1); Chloride 107 mmol/L (98-107); Creatinine, Serum 1.24 mg/dL (0.55-1.02); EST Glomerular Filtration Rate 44 mL/min (>60); Est Glom Filt Rate - Afr Amer 53 mL/min (>60); Estimated Creatinine Clearance 25.99 ml/min; Globulin 4.2 g/dL (2.2-4.2); Glucose 99 mg/dL (74-106); Lipase 10 U/L (13-75); Potassium 4.1 mmol/L (3.5-5.1); Protein, Total 6.9 g/dL (6.4-8.2); Sodium Level 139 mmol/L (136-145); Troponin-I HS 26 pg/mL (3.0-54.0)
[2022-07-22] MEDS: Morphine 2 MG/ML Syringe IV (12:53)
[2022-07-22 13:12] LABS: Bacteria 0 SEEN /hpf (None Seen); Red Blood Cells-Urine 0 SEEN /hpf (0-5)
[2022-07-22 13:16] LABS: Color, Urine Yellow (Yellow); Glucose, Dipstick Normal (Normal); Ketone-Dipstick Negative (Negative); Leukocyte Esterase-Dipstick 25 /ul (Negative); Nitrite-Dipstick Negative (Negative); Occult Blood-Urine 10 /ul (Negative); Protein-Dipstick 500 mg/dl (Negative); Urine Bilirubin Dipstick Negative (Negative); Urine Clarity Sl. Cloudy (Clear); Urine Urobilinogen Normal (Normal)
--- NOTE | 2022-07-22 13:20 | ED.RN ---
[facility] PLACED. PROVIDER AWARE THAT LAB WAS UNABLE TO OBTAIN A LACTIC OR SECOND CX. WE WILL NOT ATTEMPT TO OBTAIN THEM AT THIS TIME. PT IS A DIFFICULT ACCESS AND HER CURRENT IV WILL NOT DRAW BLOOD, LAB HAD DIFFICULTY WELL.
[2022-07-22 13:24] LABS: Mucous, Urine 1+ /hpf (<or=2+); Squamous Epithelial Cells - UA 0-5 SEEN /hpf (5-10); White Blood Cells 0-5 SEEN /hpf (0-5)
[2022-07-22 13:25] LABS: Hyaline Cast 0-5 SEEN /lpf (0-5)
--- NOTE | 2022-07-22 13:30 | RAD_ITS ---
STUDY: X-RAY CHEST REASON FOR EXAM: Female, 81 years old. Cough TECHNIQUE: Single AP portable view of the chest. COMPARISON: Comparison is made with prior study January 11, 2022. FINDINGS: EKG electrodes are seen. Hyperinflation. Stable mild increased markings at the lung bases suggest some mild scarring slightly worse in the left lower lobe. I suspect an early infiltrate in the right upper lobe adjacent to the right minor fissure. Radiographic follow-up is recommended. There is no demonstrated pleural abnormality. Normal size heart. Normal mediastinum and chloe. Normal visualized pulmonary arteries. There is atherosclerotic calcification of the aortic arch with tortuosity. There are diffuse degenerative changes of the visualized thoracic spine. There is degenerative osteoarthritis of the bilateral shoulders. There is no demonstrated abnormality of the visualized soft tissue structures of the upper abdomen. RAD/Chest 1 View (Portable) IMPRESSION: Mild increased markings at the lung bases slightly worse on the left side suggestive of either atelectasis and/or scarring. Early infiltrate in the right upper lobe abutting the right minor fissure. Radiographic follow-up is recommended. Electronically Signed: Emanuel Ventura MD at 13:54 EDT ,
--- NOTE | 2022-07-22 13:30 | ED.RN ---
PER ED MD, OK TO POSTPONE LACTIC, SECOND SET OF BLOOD CULTURES AND TYPE & SCREEN AT THIS TIME. MD WILL RE-EVALUATE AND ADVISE NURSING STAFF IF THOSE LABS WILL BE NECESSARY. PT HAS HAD NUMEROUS ATTEMPTS AL LAB DRAW BY NURSING STAFF AND LAB.
[2022-07-22] MEDS: Morphine 4 MG/ML Syringe IM (13:49)
--- NOTE | 2022-07-22 14:09 | ED.RN ---
DECISION PER DR MALHOTAR TO NOW ADD A LACTIC ACID AND REMAINING CULTURES
--- NOTE | 2022-07-22 14:32 | ED.RN ---
THIS RN DID NOT ASSIST WITH THE CENTRAL LINE INSERTION.
--- NOTE | 2022-07-22 14:51 | ED.RN ---
MORPHINE IV PER THIS RN GIVEN PREVIOUS
[2022-07-22] MEDS: Morphine 4 MG/ML Syringe IV ×2 (14:57→18:44)
--- NOTE | 2022-07-22 15:13 | ED.RN ---
AUDIBLE ASSESSMENT OF LUNGS, PT SOUNDS COURSE AND WET. PROVIDER AWARE. NO NEW ORDERS GIVEN AT THIS TIME.
[2022-07-22] MEDS: HYDROmorphone 0.5 MG/0.5 ML SYRINGE IV ×2 (16:25→21:54)
--- NOTE | 2022-07-22 16:43 | ED.RN ---
DISCUSSED AGAIN WITH PROVIDER PT'S COURSE, WET LUNG SOUNDS. NO NEW ORDERS GIVEN.
--- NOTE | 2022-07-22 17:06 | ED.RN ---
PROVIDER AWARE THAT PT IS ON HIGH FLOW O2 AT 12L. NO NEW ORDERS AT THIS TIME.
--- NOTE | 2022-07-22 17:20 | EX.PCM.CON.S ---
Assessment & Plan Assessment/Plan (1) Small bowel ischemia: PLAN: Patient has blood from her ileostomy. She is diffusely tender. Her CT scan suggests mesenteric ischemia with thickening of her small bowel. 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 I believe is a general surgeon I would be able to resect the ischemic bowel but she would resect so much that she would have short gut and probably not survive. I recommended that she be transferred to tertiary center for attempt at SMA thrombectomy but the patient does not want any surgery or life-saving measures. She says she wants to remain DNR and she would like hospice. I discussed with her that she would not survive this situation without surgical attempt and she understands this. She is alert oriented and competent to make decisions. She says she did not want the last surgery to happen to her and she definitely does not want surgery at this time. I will have the emergency room call the hospitalist to admit her and keep her comfortable and consult the hospice service. There will be no plans for surgery. Patient is understanding and agrees and would like to be transferred to hospice center for end-of-life care. Hamilton Roth MD Pager: [facility] [address] [place] [address], [address] [place] [address] Office: HPI Consult Data Date of Consult: 07/22/22 HPI Narrative HPI Narrative: KAREN VILLANUEVA, is a 81 F who presents with abdominal pain. Abdominal pain is diffuse. She is also having blood out of her ileostomy. She says the pain is severe. She has nausea but no vomiting. [facility] Medical History (Updated 07/22/22 @ 17:[address] Hamilton Roth MD) Anemia Asthma Atherosclerosis of coronary artery of [place] heart without angina pectoris Carotid artery stenosis Chronic hypoxemic respiratory failure Chronic respiratory failure with hypoxia CKD (chronic kidney disease) COPD (chronic obstructive pulmonary disease) COVID-19 virus detected (11/12/20) Diabetes Essential (primary) hypertension History of diabetes mellitus, type II History of gastroesophageal reflux (GERD) Hyperlipidemia Ileostomy present Morbid obesity Nicotine dependence Obesities, morbid Obstructive sleep apnea JESSICA (obstructive sleep apnea) Stage 2 moderate COPD by GOLD classification 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) Stenosis of right carotid artery Tobacco abuse Transient hypotension VBI (vertebrobasilar insufficiency) Viral URI Walker as ambulation aid Home Medications citalopram 20 mg tablet 20 mg PO DAILY depression 02/28/13 [History Last Taken 02/25/20] albuterol sulfate 90 mcg/actuation aerosol inhaler 2 puff inhalation Q4H PRN PRN Sob &/Or Wheezing 07/15/14 [History Last Taken 02/25/20] atorvastatin 40 mg tablet 40 mg PO QHS CHOLESTEROL 08/17/18 [History Last Taken 02/24/20] metoprolol succinate 25 mg tablet,extended release 24 hr 12.5 mg PO DAILY BP 12/06/19 [History Last Taken 02/25/20] montelukast 10 mg tablet 10 mg PO QHS Allergies 03/11/20 [History Last Taken Unknown] clopidogrel 75 mg tablet 75 mg PO DAILY BLOOD THINNER #90 tabs 02/27/21 [Rx Last Taken Unknown] budesonide 0.5 mg/2 mL suspension for nebulization 0.5 mg inhalation BID 12/16/21 [History Last Taken Unknown] fluticasone propionate 50 mcg/actuation nasal spray,suspension 2 spray intranasal DAILY 12/16/21 [History Last Taken Unknown] furosemide 40 mg tablet 20 mg PO MOWEFR 12/16/21 [History Last Taken Unknown] loperamide 2 mg capsule 4 mg PO BIDCM Diarrhea 12/16/21 [History Last Taken Unknown] midodrine 5 mg tablet 10 mg PO BID BP 12/16/21 [History Last Taken Unknown] nitroglycerin 0.4 mg sublingual tablet 0.4 mg sublingual Q5-15M PRN chest pain #25 tabs 12/16/21 [Rx Last Taken Unknown] pantoprazole 40 mg tablet,delayed release 40 mg PO BID 12/16/21 [History Last Taken Unknown] pramipexole 1 mg tablet 0.5 mg PO QHS 12/16/21 [History Last Taken Unknown] pregabalin 50 mg capsule 50 mg PO QHS 12/16/21 [History Last Taken Unknown] ranolazine 500 mg tablet,extended release,12 hr 500 mg PO BID 12/24/21 [History Last Taken Unknown] ondansetron 4 mg disintegrating tablet 4 mg PO Q8H PRN PRN Nausea #4 tabs 04/29/22 [Rx Last Taken Unknown] fludrocortisone 0.1 mg tablet 0.1 mg PO DAILY 06/01/22 [History Last Taken Unknown] valacyclovir 1 gram tablet 1,000 mg PO TID 7 days #21 tabs 07/18/22 [Rx Last Taken Unknown] trazodone 50 mg tablet 50 mg PO QHS 07/22/22 [History Last Taken Unknown] Allergy/AdvReac Type Severity Reaction Status Date / Time aspirin [ASA] Allergy Severe Hives Verified 07/22/22 09:23 ferrous sulfate Allergy Intermediate Hives Verified 07/22/22 09:23 bupropion [From Wellbutrin] Allergy headache Verified 07/22/22 09:23 codeine Allergy Hives Verified 07/22/22 09:23 meperidine [From Demerol] Allergy PT UNABLE Verified 07/22/22 09:23 TO RESPOND-NEEDS F/U meperidine HCl [From Demerol] Allergy Hives Verified 07/22/22 09:23 naproxen sodium Allergy Hives Verified 07/22/22 09:23 [From Anaprox] propoxyphene HCl Allergy Hives Verified 07/22/22 09:23 [From Darvon] Sulfa (Sulfonamide Allergy hives, Verified 07/22/22 09:23 Antibiotics) trouble breathing gabapentin AdvReac Intermediate Mental Verified 07/22/22 09:23 status change, foggy headed morphine AdvReac NEEDS Verified 07/22/22 09:23 FOLLOW-UP NSAIDS (Non-Steroidal AdvReac Hives Verified 07/22/22 09:23 Anti-Inflamma salicylates AdvReac NEEDS Verified 07/22/22 09:23 FOLLOW-UP Family History Mother CVA (cerebral vascular accident) Father Asthma Hypertension High blood cholesterol level Arthritis Surgical History H/O bariatric surgery History of section History of cholecystectomy History of coronary artery stent placement (12/11/19) History of right knee joint replacement History of right-sided carotid endarterectomy (07/2014) left subclavian artery stent (03/2017) Social History Smoking Status: Current some day smoker tobacco type: cigarettes second hand exposure: Yes alcohol intake: never substance use type: does not use caffeine: Yes Type: coffee Number of servings: 6 and tea Number of servings: 2 what type of physical activity do you participate in: none ROS Constitutional Constitutional: Denies anorexia, chills, fatigue or fever(s) Eyes Eyes: Denies blurry vision ENT HEENT: Denies abnormal hearing Cardiovascular Cardiovascular: Denies chest pain Respiratory/Chest Respiratory/Chest: Denies cough or dyspnea Gastrointestinal Gastrointestinal: Reports abdominal pain, hematochezia and nausea; Denies vomiting Genitourinary Genitourinary: Denies change in urinary stream Musculoskeletal Musculoskeletal: Denies abnormal gait Neurologic Neurologic: Denies abnormal gait Psychiatric Psychiatric: Denies anxiety Endocrine Endocrinology: Denies flushing Physical Exam Const alert and oriented x3 HEENT normocephalic Eyes PERRL Lymph Lymphatic: no lymphadenopathy noted Resp normal respiratory effort Cardio Rate: tachycardic Rhythm: regular rhythm GI soft to palpation Palpation: tender Lab / Micro Data Result Diagrams: 07/22/22 11:40 07/22/22 11:40 Labs: Laboratory Results - last 24 hr 07/22/22 11:40: WBC 14.3 H, RBC 4.38, Hgb 12.7, Hct 40.2, MCV 91.8, MCH 29.0, MCHC 31.6 L, RDW Std Deviation 49.5 H, RDW Coeff of Abiola 14.6, Plt Count 244, MPV 8.9, Immature Gran % (Auto) 0.400, Neut % (Auto) 85.7 H, Lymph % (Auto) 3.6 L, [place] % (Auto) 8.4, Eos % (Auto) 1.6, Baso % (Auto) 0.3, Absolute Neuts (auto) 12.3 H, Absolute Lymphs (auto) 0.52 L, Nucleated RBC % 0, Differential Comment COMMENT 07/22/22 11:40: PT 14.6, INR 1.1, APTT 35.0 07/22/22 11:40: Sodium 139, Potassium 4.1, Chloride 107, Carbon Dioxide 25.0, Anion Gap 7, BUN 20 H, Creatinine 1.24 H, Estim Creat Clear Calc 25.99, Est GFR (MDRD) Af Amer 53 L, Est GFR (MDRD) Non-Af 44 L, BUN/Creatinine Ratio 16.1, Glucose 99, Calcium 8.5, Total Bilirubin 0.90, AST 28, ALT 15, Alkaline Phosphatase 116, Troponin I High Sens 26, Total Protein 6.9, Albumin 2.7 L, Globulin 4.2, Albumin/Globulin Ratio 0.6 L, Lipase 10 L 07/22/22 13:00: Urine Color Yellow, Urine Clarity Sl. Cloudy, Urine pH 5.0, Ur Specific [place] 1.020, Urine Protein 500 H, Urine Glucose (UA) Normal, Urine Ketones Negative, Urine Occult Blood 10 H, Urine Nitrite Negative, Urine Bilirubin Negative, Urine Urobilinogen Normal, Ur Leukocyte Esterase 25 H, Urine RBC 0 SEEN, Urine WBC 0-5 SEEN, Ur Squamous Epith Cells 0-5 SEEN, Urine Bacteria 0 SEEN, Hyaline Casts 0-5 SEEN, Urine Mucus 1+ 07/22/22 14:56: Lactic Acid 1.0 Radiology Impression Abdomen/Pelvis CT 07/22/22 10:35 IMPRESSION: Findings suggestive of a ischemic bowel with air in the portal venous system in the peripheral branches of the liver as described. There is diffuse thickening and increased markings in the surrounding fat in the jejunal loops distally and ileum. Marked degree of atherosclerotic disease involving the abdominal aorta and the major visceral branches including the celiac trunk and the superior mesenteric artery. N.B. : The above Results were Read Back by Emanuel Ventura MD to Inocencio Anderson DO, and understanding confirmed on 07/22/2022 14:02:12 (ET). Electronically Signed: Emanuel Ventura MD at 14:03 EDT , ADDENDUM: 07/22/22 1410 IMPRESSION: Findings suggestive of a ischemic bowel with air in the portal venous system in the peripheral branches of the liver as described. There is diffuse thickening and increased markings in the surrounding fat in the jejunal loops distally and ileum. Marked degree of atherosclerotic disease involving the abdominal aorta and the major visceral branches including the celiac trunk and the superior mesenteric artery. N.B. : The above Results were Read Back by Emanuel Ventura MD to Inocencio Anderson DO, and understanding confirmed on 07/22/2022 14:02:12 (ET). Electronically Signed: Emanuel Ventura MD at 14:03 EDT , Chest X-Ray 07/22/22 13:30 IMPRESSION: Mild increased markings at the lung bases slightly worse on the left side suggestive of either atelectasis and/or scarring. Early infiltrate in the right upper lobe abutting the right minor fissure. Radiographic follow-up is recommended. Electronically Signed: Emanuel Ventura MD at 13:54 EDT ,
--- NOTE | 2022-07-22 18:24 | ED.RN ---
PROVIDER WANTS PT ON [facility], RESPIRATORY CALLED.
--- NOTE | 2022-07-22 19:03 | ED.RN ---
THIS RN WAS GIVEN PT ICE CHIPS WITH DR PERMISSION.PT OFFERED ICE CREAM. REFUSED
--- NOTE | 2022-07-22 19:30 | ED.RN ---
hospice called and made aware of patient at this time. chart faxed at this time. they will attempt to send some one over if they can to see patient. Dr. Newman made aware and spoke to hospice
--- NOTE | 2022-07-22 19:54 | NURSING ---
RECEIVED A CALL FROM HOSPICE STATING THEY WILL BE IN ON 07/23 AT 10:30AM TO DO AN ASSESSMENT.
--- NOTE | 2022-07-22 20:27 | CM.ED ---
Social Work Hospice called SW to report an appointment scheduled for tomorrow at 10:30 am with Smiley. Hospice requested patient chart faxed, faxed to [phone]. Kelsey PLATA, PARTY SUPPLY SPECIALIST
--- NOTE | 2022-07-22 20:49 | CM.ED ---
Social Work SW introduced self and role. Daughter, son in law and granddaughter of patient present. SW provided emotional support to patient and family. Kelsey Joel MINING ANALYST, DIRECTOR OF GRADUATE MEDICAL EDUCATION
--- NOTE | 2022-07-22 20:51 | PCM.HP.STD ---
HPI - General General Date of Admission: 07/22/22 Date of Service: 07/22/22 Chief Complaint: Abdominal pain HPI Narrative KAREN VILLANUEVA, is a 81 F with a significant history of multiple abdominal surgery who presents to emergency department with excruciating generalized constant aching and occasional jabbing abdominal pain. Her symptoms has been going on for years but in the past few days her symptoms has been worsening. Her pain radiates to her rectum. She reports that pain medicine helps improve the pain. Breathing worsens her pain. Also she complains of nausea and retching. Per family who was at the bedside it was a recent antiviral medication that made her nauseous. Of note patient is on antiviral for diagnosed shingles of her left forearm. Abdomen and pelvis CT obtained on presentation showed bowel ischemia. Patient was evaluated by general surgery and the patient elected not to have any surgery and is requesting hospice. However hospice was unable to evaluate patient on presentation and hospice evaluation will be in a.m. after day of presentation FORMERLY [facility], [facility] Medical History Anemia Asthma Atherosclerosis of coronary artery of [place] heart without angina pectoris Carotid artery stenosis Chronic hypoxemic respiratory failure Chronic respiratory failure with hypoxia CKD (chronic kidney disease) COPD (chronic obstructive pulmonary disease) COVID-19 virus detected (11/12/20) Diabetes Essential (primary) hypertension History of diabetes mellitus, type II History of gastroesophageal reflux (GERD) Hyperlipidemia Ileostomy present Morbid obesity Nicotine dependence Obesities, morbid Obstructive sleep apnea JESSICA (obstructive sleep apnea) Stage 2 moderate COPD by GOLD classification 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) Stenosis of right carotid artery Tobacco abuse Transient hypotension VBI (vertebrobasilar insufficiency) Viral URI Walker as ambulation aid Home Medications citalopram 20 mg tablet 20 mg PO DAILY depression 02/28/13 [History Last Taken 02/25/20] albuterol sulfate 90 mcg/actuation aerosol inhaler 2 puff inhalation Q4H PRN PRN Sob &/Or Wheezing 07/15/14 [History Last Taken 02/25/20] atorvastatin 40 mg tablet 40 mg PO QHS CHOLESTEROL 08/17/18 [History Last Taken 02/24/20] metoprolol succinate 25 mg tablet,extended release 24 hr 12.5 mg PO DAILY BP 12/06/19 [History Last Taken 02/25/20] montelukast 10 mg tablet 10 mg PO QHS Allergies 03/11/20 [History Last Taken Unknown] clopidogrel 75 mg tablet 75 mg PO DAILY BLOOD THINNER #90 tabs 02/27/21 [Rx Last Taken Unknown] budesonide 0.5 mg/2 mL suspension for nebulization 0.5 mg inhalation BID 12/16/21 [History Last Taken Unknown] fluticasone propionate 50 mcg/actuation nasal spray,suspension 2 spray intranasal DAILY 12/16/21 [History Last Taken Unknown] furosemide 40 mg tablet 20 mg PO MOWEFR 12/16/21 [History Last Taken Unknown] loperamide 2 mg capsule 4 mg PO BIDCM Diarrhea 12/16/21 [History Last Taken Unknown] midodrine 5 mg tablet 10 mg PO BID BP 12/16/21 [History Last Taken Unknown] nitroglycerin 0.4 mg sublingual tablet 0.4 mg sublingual Q5-15M PRN chest pain #25 tabs 12/16/21 [Rx Last Taken Unknown] pantoprazole 40 mg tablet,delayed release 40 mg PO BID 12/16/21 [History Last Taken Unknown] pramipexole 1 mg tablet 0.5 mg PO QHS 12/16/21 [History Last Taken Unknown] pregabalin 50 mg capsule 50 mg PO QHS 12/16/21 [History Last Taken Unknown] ranolazine 500 mg tablet,extended release,12 hr 500 mg PO BID 12/24/21 [History Last Taken Unknown] ondansetron 4 mg disintegrating tablet 4 mg PO Q8H PRN PRN Nausea #4 tabs 04/29/22 [Rx Last Taken Unknown] fludrocortisone 0.1 mg tablet 0.1 mg PO DAILY 06/01/22 [History Last Taken Unknown] valacyclovir 1 gram tablet 1,000 mg PO TID 7 days #21 tabs 07/18/22 [Rx Last Taken Unknown] trazodone 50 mg tablet 50 mg PO QHS 07/22/22 [History Last Taken Unknown] Allergy/AdvReac Type Severity Reaction Status Date / Time aspirin [ASA] Allergy Severe Hives Verified 07/22/22 09:23 ferrous sulfate Allergy Intermediate Hives Verified 07/22/22 09:23 bupropion [From Wellbutrin] Allergy headache Verified 07/22/22 09:23 codeine Allergy Hives Verified 07/22/22 09:23 meperidine [From Demerol] Allergy PT UNABLE Verified 07/22/22 09:23 TO RESPOND-NEEDS F/U meperidine HCl [From Demerol] Allergy Hives Verified 07/22/22 09:23 naproxen sodium Allergy Hives Verified 07/22/22 09:23 [From Anaprox] propoxyphene HCl Allergy Hives Verified 07/22/22 09:23 [From Darvon] Sulfa (Sulfonamide Allergy hives, Verified 07/22/22 09:23 Antibiotics) trouble breathing gabapentin AdvReac Intermediate Mental Verified 07/22/22 09:23 status change, foggy headed morphine AdvReac NEEDS Verified 07/22/22 09:23 FOLLOW-UP NSAIDS (Non-Steroidal AdvReac Hives Verified 07/22/22 09:23 Anti-Inflamma salicylates AdvReac NEEDS Verified 07/22/22 09:23 FOLLOW-UP Family History Mother CVA (cerebral vascular accident) Father Asthma Hypertension High blood cholesterol level Arthritis Surgical History H/O bariatric surgery History of section History of cholecystectomy History of coronary artery stent placement (12/11/19) History of right knee joint replacement History of right-sided carotid endarterectomy (07/2014) left subclavian artery stent (03/2017) Social History Smoking Status: Current some day smoker tobacco type: cigarettes second hand exposure: Yes alcohol intake: never substance use type: does not use caffeine: Yes Type: coffee Number of servings: 6 and tea Number of servings: 2 what type of physical activity do you participate in: none ROS ROS Narrative Pertinent positives and pertinent negatives as noted in HPI. All other systems were reviewed and are negative Vital Signs Vital Signs Vital Signs: 07/22/22 09:16 07/22/22 10:33 07/22/22 11:02 Temperature 97.6 F L Temperature Source Temporal Pulse Rate 121 H 116 H Respiratory Rate 22 H 27 H Blood Pressure 110/57 L 124/68 H Blood Pressure Mean 74 86 Pulse Ox 85 93 93 Oxygen Delivery Method Room Air Nasal Cannula Nasal Cannula Oxygen Flow Rate (L/min) 6 6 Fraction of Inspired Oxygen (FIO2) 07/22/22 13:50 07/22/22 13:59 07/22/22 13:04 Temperature 98 F Temperature Source Temporal Pulse Rate 110 H 118 H 118 H Respiratory Rate 24 H 28 H 26 H Blood Pressure 184/97 H 133/96 H 167/113 H Blood Pressure Mean 126 108 131 Pulse Ox 96 95 92 Oxygen Delivery Method Nasal Cannula Nasal Cannula Nasal Cannula Oxygen Flow Rate (L/min) 5 5 6 Fraction of Inspired Oxygen (FIO2) 07/22/22 14:43 07/22/22 14:59 07/22/22 15:00 Temperature 98.9 F 98.9 F Temperature Source Temporal Temporal Pulse Rate 114 H 111 H 112 H Respiratory Rate 23 H 25 H 23 H Blood Pressure 159/106 H 159/106 H 159/106 H Blood Pressure Mean 123 123 123 Pulse Ox 95 93 94 Oxygen Delivery Method Nasal Cannula Nasal Cannula Nasal Cannula Oxygen Flow Rate (L/min) 5 6 6 Fraction of Inspired Oxygen (FIO2) 07/22/22 15:18 07/22/22 14:58 07/22/22 16:00 Temperature 98.1 F Temperature Source Temporal Pulse Rate 110 H 112 H 108 H Respiratory Rate 24 H 24 H 23 H Blood Pressure 154/94 H 159/106 H 156/82 H Blood Pressure Mean 114 123 106 Pulse Ox 95 95 98 Oxygen Delivery Method Nasal Cannula Nasal Cannula Nasal Cannula Oxygen Flow Rate (L/min) 6 6 6 Fraction of Inspired Oxygen (FIO2) 07/22/22 16:33 07/22/22 17:00 07/22/22 17:00 Temperature 98.7 F Temperature Source Pulse Rate 108 H Respiratory Rate 21 H Blood Pressure 156/82 H Blood Pressure Mean 106 Pulse Ox 98 86 89 Oxygen Delivery Method Nasal Cannula High Flow Oxygen Flow Rate (L/min) 6 10 Fraction of Inspired Oxygen (FIO2) 07/22/22 17:00 07/22/22 17:01 07/22/22 17:57 Temperature 99 F Temperature Source Temporal Pulse Rate 113 H Respiratory Rate 28 H Blood Pressure 132/79 H Blood Pressure Mean 96 Pulse Ox 91 91 80 Oxygen Delivery Method High Flow High Flow High Flow Oxygen Flow Rate (L/min) 12 12 12 Fraction of Inspired Oxygen (FIO2) 07/22/22 18:04 07/22/22 18:06 07/22/22 18:15 Temperature 98 F Temperature Source Temporal Pulse Rate 116 H 117 H Respiratory Rate 29 H 28 H Blood Pressure 149/111 H 149/111 H Blood Pressure Mean 123 123 Pulse Ox 77 74 89 Oxygen Delivery Method High Flow High Flow Non-Rebreather Oxygen Flow Rate (L/min) 15 15 Fraction of Inspired Oxygen (FIO2) 07/22/22 18:17 07/22/22 18:24 07/22/22 18:36 Temperature Temperature Source Pulse Rate 115 H 117 H Respiratory Rate 28 H 27 H Blood Pressure 140/80 H 140/80 H Blood Pressure Mean 100 100 Pulse Ox 91 93 96 Oxygen Delivery Method Non-Rebreather Non-Rebreather Airvo Oxygen Flow Rate (L/min) 50 Fraction of Inspired Oxygen (FIO2) 60 07/22/22 18:39 07/22/22 18:30 07/22/22 18:58 Temperature Temperature Source Pulse Rate 117 H 118 H Respiratory Rate 24 H 22 H Blood Pressure 140/80 H Blood Pressure Mean 100 Pulse Ox 96 97 93 Oxygen Delivery Method Airvo Airvo Oxygen Flow Rate (L/min) 50 50 Fraction of Inspired Oxygen (FIO2) 60 60 60 07/22/22 19:04 07/22/22 20:21 Temperature 97 F L 98.2 F Temperature Source Temporal Oral Pulse Rate 118 H 123 H Respiratory Rate 29 H 28 H Blood Pressure 121/96 H 137/109 H Blood Pressure Mean 104 118 Pulse Ox 94 97 Oxygen Delivery Method Airvo Airvo Oxygen Flow Rate (L/min) 50 Fraction of Inspired Oxygen (FIO2) 60 Weight Weight: 93 kg Body Mass Index (BMI) 40.0 Physical Exam Narrative Physical exam: General: Well-nourished, well-developed. Head: Normocephalic, atraumatic, no tenderness Eyes: Vision is grossly intact. EOMI ENT, no trauma, moist mucous membranes, no rhinorrhea Neck: Nontender, No thyromegaly. CVS: Regular rate and rhythm. S1-S2 present. No murmur, gallop or rub. Respiratory : clear to auscultation bilaterally, chest wall nontender Abdomen: Ileostomy with bloody drainage. Soft, tender. : Deferred Back: Nontender, no CVA tenderness, no midline spinal tenderness, deformities, step-offs Extremities: Nontender full range of motion, no trauma Skin: Normal color, no trauma, abrasions Neuro: Alert, oriented, cranial nerves II through XII grossly intact. Psychiatry: Anxious. Results Lab / Micro Data Attestation: I reviewed the patient's lab results. Result Diagrams: 07/22/22 11:40 07/22/22 11:40 Labs: Laboratory Results - last 24 hr 07/22/22 11:40: WBC 14.3 H, RBC 4.38, Hgb 12.7, Hct 40.2, MCV 91.8, MCH 29.0, MCHC 31.6 L, RDW Std Deviation 49.5 H, RDW Coeff of [place] 14.6, Plt Count 244, MPV 8.9, Immature Gran % (Auto) 0.400, Neut % (Auto) 85.7 H, Lymph % (Auto) 3.6 L, [place] % (Auto) 8.4, Eos % (Auto) 1.6, Baso % (Auto) 0.3, Absolute Neuts (auto) 12.3 H, Absolute Lymphs (auto) 0.52 L, Nucleated RBC % 0, Differential Comment COMMENT 07/22/22 11:40: PT 14.6, INR 1.1, APTT 35.0 07/22/22 11:40: Sodium 139, Potassium 4.1, Chloride 107, Carbon Dioxide 25.0, Anion Gap 7, BUN 20 H, Creatinine 1.24 H, Estim Creat Clear Calc 25.99, Est GFR (MDRD) Af Amer 53 L, Est GFR (MDRD) Non-Af 44 L, BUN/Creatinine Ratio 16.1, Glucose 99, Calcium 8.5, Total Bilirubin 0.90, AST 28, ALT 15, Alkaline Phosphatase 116, Troponin I High Sens 26, Total Protein 6.9, Albumin 2.7 L, Globulin 4.2, Albumin/Globulin Ratio 0.6 L, Lipase 10 L 07/22/22 13:00: Urine Color Yellow, Urine Clarity Sl. Cloudy, Urine pH 5.0, Ur Specific [place] 1.020, Urine Protein 500 H, Urine Glucose (UA) Normal, Urine Ketones Negative, Urine Occult Blood 10 H, Urine Nitrite Negative, Urine Bilirubin Negative, Urine Urobilinogen Normal, Ur Leukocyte Esterase 25 H, Urine RBC 0 SEEN, Urine WBC 0-5 SEEN, Ur Squamous Epith Cells 0-5 SEEN, Urine Bacteria 0 SEEN, Hyaline Casts 0-5 SEEN, Urine Mucus 1+ 07/22/22 14:56: Lactic Acid 1.0 Radiology Impression Abdomen/Pelvis CT 07/22/22 10:35 IMPRESSION: Findings suggestive of a ischemic bowel with air in the portal venous system in the peripheral branches of the liver as described. There is diffuse thickening and increased markings in the surrounding fat in the jejunal loops distally and ileum. Marked degree of atherosclerotic disease involving the abdominal aorta and the major visceral branches including the celiac trunk and the superior mesenteric artery. N.B. : The above Results were Read Back by Emanuel Ventura MD to Inocencio Anderson DO, and understanding confirmed on 07/22/2022 14:02:12 (ET). Electronically Signed: Emanuel Ventura MD at 14:03 EDT , ADDENDUM: 07/22/22 1410 IMPRESSION: Findings suggestive of a ischemic bowel with air in the portal venous system in the peripheral branches of the liver as described. There is diffuse thickening and increased markings in the surrounding fat in the jejunal loops distally and ileum. Marked degree of atherosclerotic disease involving the abdominal aorta and the major visceral branches including the celiac trunk and the superior mesenteric artery. N.B. : The above Results were Read Back by Emanuel Ventura MD to Inocencio Anderson DO, and understanding confirmed on 07/22/2022 14:02:12 (ET). Electronically Signed: Emanuel Ventura MD at 14:03 EDT , Chest X-Ray 07/22/22 13:30 IMPRESSION: Mild increased markings at the lung bases slightly worse on the left side suggestive of either atelectasis and/or scarring. Early infiltrate in the right upper lobe abutting the right minor fissure. Radiographic follow-up is recommended. Electronically Signed: Emanuel Ventura MD at 13:54 EDT , Assessment & Plan Assessment/Plan (1) Small bowel ischemia: (2) Dyspnea: (3) Acute hypoxemic respiratory failure: PLAN: Plan Small bowel ischemia: Impression of abdomen and pelvic CT: Findings suggestive of a ischemic bowel with air in the portal venous system in the peripheral branches of the liver as described. There is diffuse thickening and increased markings in the surrounding fat in the jejunal loops distally and ileum. Marked degree of atherosclerotic disease involving the abdominal aorta and the major visceral branches including the celiac trunk and the superior mesenteric artery. Abdomen and pelvis CT was visualized and independently interpreted and I agree with radiology interpretation. General surgery saw patient and discussed case with patient. Patient elected not to pursue surgical management and requested hospice. Hospice consult placed. Comfort meds ordered. Acute hypoxemic respiratory failure Documented oxygen saturation of as low as 74% on high flow oxygen. Requiring nonrebreather mask and later placed on Airvo at the emergency department. Airvo continued. Total clinical time spent by myself addressing the patient's medical issues, reviewing all the data, and collaborating with the patient's care team; and discussing case with family: 90 minutes Charges/Coding Visit Charges Inpatient E&M: 90041 Init Hosp L3
[2022-07-22] MEDS: Albuterol 2.5 MG/3 ML VIAL.NEB. INHALATION (22:20)
[2022-07-22] MEDS: Budesonide Respules 0.5 MG/2 ML AMPUL.NEB. INHALATION (22:20)
[2022-07-22] MEDS: Pregabalin 50 MG Capsule PO (23:14)
[2022-07-22] MEDS: LORazepam 2 MG/ML Syringe 1 MG IV (23:14)
[2022-07-22] MEDS: Pramipexole Di-HCl 0.5 MG Tablet PO (23:15)
[2022-07-22] MEDS: Montelukast 10 MG Tablet PO (23:15)
[2022-07-22] MEDS: Pantoprazole Sodium 40 MG Tablet PO (23:15)
[2022-07-22] MEDS: Atorvastatin Calcium 40 MG Tablet PO (23:16)
[2022-07-22] MEDS: Midodrine HCl 5 MG Tablet 10 MG PO (23:16)
[2022-07-22] MEDS: traZODone 50 MG Tablet PO (23:16)
[2022-07-22] MEDS: Ranolazine 500 MG Tablet PO (23:16)
[2022-07-23 00:45] VITALS: BMI 39.7
[2022-07-23] MEDS: 0.9% Saline Lock 10 ML Syringe IV ×2 (01:34→13:58)
[2022-07-23] MEDS: HYDROmorphone 0.5 MG/0.5 ML SYRINGE 1 MG IV ×3 (01:35→20:41)
[2022-07-23 05:53] VITALS: BP 51/33; PULSE 111; RESP 30; TEMP 36.3; O2SAT 79
[2022-07-23 07:42] VITALS: PULSE 115; PULSE 120; RESP 26; O2SAT 95
[2022-07-23] MEDS: Budesonide Respules 0.5 MG/2 ML AMPUL.NEB. INHALATION (07:42)
--- NOTE | 2022-07-23 10:20 | CASEMGMT ---
Per physician pt is actively dying and will remain in the hospital. Phone call to Benita at [facility] and hospice referral cancelled. Pt admitted from [facility]. Nabb luann. JESSICA Vázquez
[2022-07-23] MEDS: LORazepam 2 MG/ML Syringe IV (13:58)
--- NOTE | 2022-07-23 14:08 | NURSING ---
Gave pt ordered 2mg of IV ativan and 1mg IV dilaudid. Resp. therapy removed airvo -- per Dr Ray's orders. Will continue to monitor
--- NOTE | 2022-07-23 14:57 | CHAPLAIN ---
Type of Pastoral Visit _x__ Initial Visit ___ Follow-up Visit ___ On-call Visit ___ General Patient Visit ___ Spiritual Assessment ___ Family Conference _x__ Bereavement ___ Rapid Response ___ Code Blue ___ Other (describe below) Pastoral Care Referral From ___ Patient _x__ Family ___ Nurse ___ Physician ___ Airplane Cover Maker ___ Ruling Machine Operator ___ Other (describe below) Sacrament/Intervention _x__ Active listening ___ Anointing ___ Yarsanism _x__ Bereavement ___ Communion _x__ Mira exploration ___ _x__ Life review _x__ Prayer ___ Reconciliation ___ Sacrament of Sick _x__ Supportive presence ___ Wedding ___ Other (describe below) Pastoral Comments patient is unresponsive and expected to pass away soon; family members have gathered in the room; family is very welcoming of spiritual care support and asks for prayers; life review is given; family supports one another well; offer of presence and other needs are given; a bereavement blanket is given to the family and placed on the patient; family expresses gratitude for support
[2022-07-23 16:54] VITALS: BP 35/22; PULSE 110; RESP 28; TEMP 36.2; O2SAT 63
--- NOTE | 2022-07-23 18:30 | PCM.PN.HOSP ---
Reason for Visit Reason for Visit: Diagnoses Acute respiratory failure with hypoxia (07/22/22) Vascular disorder of intestine, unspecified (07/22/22) Dyspnea, unspecified (07/22/22) Subjective Subjective Patient was seen and examined today, she appears comatose, responds vaguely to tactile stimuli. I talked at length with the family members who are in the room at the time my examination today, the family had her great granddaughter in today to say goodbye to her and afterwards the family agreed to take the patient off oxygen medicate her for any discomfort. They did not want hospice involved with the case, they did not want her transferred to the hospice facility. At the time of this dictation, patient's blood pressure is very low-35/22, patient's O2 sat is 63% on room air. I feel the is eminent. Family is present and they are awaiting it. Objective Data Objective Data Vital Signs: Vital Signs Temp Pulse Resp BP Pulse Ox O2 Del Method O2 Flow Rate 97.1 F L 110 H 28 H 35/22 L 63 Room Air 50 07/23/22 16:54 07/23/22 16:54 07/23/22 16:54 07/23/22 16:54 07/23/22 16:54 07/23/22 16:54 07/22/22 22:20 FiO2 60 07/23/22 07:42 Oxygen Flow Rate (L/min) 50 Oxygen Delivery Method Room Air Weight: 92.261 kg Body Mass Index (BMI) 39.7 Intake & Output: Intake and Output for Last 24 Hours 07/21/22 07/22/22 07/23/22 23:59 23:59 23:59 Intake Total 2630 / 2630 Output Total 200 / 200 Balance 2630 / 2630 -200 / -200 Lab / Micro Data Result Diagrams: 07/22/22 11:40 07/22/22 11:40 Micro: Microbiology 07/22/22 13:00 Urine Catheter - Catheter Urine Culture - Preliminary Culture exhibits no growth. Physical Exam Const Constitutional Narrative: Patient is comatose, she does not respond to verbal stimuli, she responds slightly to painful stimuli. HEENT normocephalic and head/scalp atraumatic Eyes PERRL, EOMs intact bilaterally and conjunctivae normal Neck supple, no JVD and thyroid normal General: trachea midline Resp Resp Narrative: Patient's breaths are shallow, she does not appear to be in respiratory distress Auscultation: Negative for rales, rhonchi or wheezes Cardio regular rate, regular rhythm, S1 normal heart sound, S2 normal heart sound, no murmurs, no rub and no gallops GI non-distended Extremity no clubbing, cyanosis or edema Neuro CN's II-XII intact bilaterally Neuro Narrative: Patient is comatose, she does not respond to verbal stimuli Psych Psych Narrative: Patient is comatose, she does not respond to verbal stimuli Assessment & Plan Assessment/Plan (1) Small bowel ischemia: PLAN: Plan 1. Acute shock from small bowel ischemia-patient is terminal at this time, vital signs are marginal, family is present and they are aware. Patient is a DNR comfort care only #2 small bowel ischemia #3 chronic obstructive pulmonary disease #4 shingles #5 coronary artery disease Total clinical time spent by myself addressing the patient's medical issues, reviewing all the data, and collaborating with patient's care team: 25-minutes Charges/Coding Visit Charges Inpatient E&M: 35966 Subs Hosp L1
[2022-07-23 20:27] VITALS: BP 51/36; PULSE 37; RESP 30; TEMP 36.4; O2SAT 48
[2022-07-23] MEDS: LORazepam 2 MG/ML Syringe 1 MG IV (20:41)
--- NOTE | 2022-07-23 21:14 | PCM.PN.BLA ---
Progress Note Notified by nurse that patient on 07/23/2022 at 2101.
--- NOTE | 2022-07-23 21:32 | NURSING ---
PT DEMISE AT [address] AT [facility]. DR NOTIFIED, CONTINUOUS VULCANIZING MACHINE OPERATOR NOTIFIED, OPPERATOR NOTIFIED. [facility] CALLED. BODY RELEASED. [facility] NOTIFIED.
--- NOTE | 2022-07-24 07:50 | PCM.DEATH ---
Preliminary Cause of Preliminary Cause of Preliminary Cause of : Acute tach secondary to acute ischemic bowel disease Date of Admission: 07/22/22 Date of : 07/23/22 Principle Diagnosis 1. Acute shock secondary to ischemic bowel disease #2 small bowel ischemia #3 chronic obstructive pulmonary disease #4 shingles-present on admission #5 coronary artery disease #6 acute hypoxic respiratory failure Problem List: Active and Suspected Problems (Updated 07/23/22 @ 06:[address] Omer Hoffman MD) Acute hypoxemic respiratory failure (Acute) Small bowel ischemia (Acute) Dyspnea (Acute) Hospital Course This 81-year-old white female was seen in the emergency room at [facility] with complaints of bleeding through her ileostomy bag. She also complained of generalized severe abdominal pain. Work-up in the emergency room indicated that she had acute ischemic disease of her small intestine. General surgery was contacted and had a discussion with the patient and her family due to the extensive nature of the ischemic bowel, patient would be facing an extensive surgery which she did not want to consent to. It was planned that the patient would be admitted and have a hospice consultation. Patient was admitted to [place] [id number] and comfort medications were ordered for the patient, she rapidly deteriorated with low blood pressure and went into a coma. I talked with the family extensively on 07/23/2022, they did not feel that hospice was necessary to see the patient in the hospital-they did not want her transferred to the hospice facility and her blood pressure was low and she would have been too unstable to transport. Patient's oxygen was removed and she was medicated for comfort-patient's family was at the bedside. On 07/23/2022, it was noted the patient had no respirations, no blood pressure, and no heartbeat, she was pronounced at 2101. Total clinical time spent by myself addressing the patient's medical issues, reviewing all of her data, and collaborating with patient's care team and talking extensively with family members-30 minutes Visit Charges Inpatient E&M: 78987 Disch Hosp >30min
== END 2022-07-23 21:10 | DRG 393 ==
LOC: ED 19:54 → MS3 20:30
PROVIDERS: Admitting Provider Hospitalist; Emergency Provider Emergency Medicine; PCP Family Medicine; Visit Provider Internal Medicine
DX: K55.019 Acute (reversible) ischemia of small intestine, extent unspecified (principal); J96.01 Acute respiratory failure with hypoxia; R40.20 Unspecified coma; R57.9 Shock, unspecified; K94.11 Enterostomy hemorrhage; E11.22 Type 2 diabetes mellitus with diabetic chronic kidney disease; J44.9 Chronic obstructive pulmonary disease, unspecified; E78.5 Hyperlipidemia, unspecified; N18.9 Chronic kidney disease, unspecified; I25.10 Atherosclerotic heart disease of native coronary artery without angina pectoris; I12.9 Hypertensive chronic kidney disease with stage 1 through stage 4 chronic kidney disease, or unspecified chronic kidney disease; G47.33 Obstructive sleep apnea (adult) (pediatric); F17.210 Nicotine dependence, cigarettes, uncomplicated; B02.9 Zoster without complications; Z66 Do not resuscitate; Z51.5 Encounter for palliative care; Z79.02 Long term (current) use of antithrombotics/antiplatelets; Z79.899 Other long term (current) drug therapy; Z86.16 Personal history of COVID-19; Z95.5 Presence of coronary angioplasty implant and graft
CPT/HCPCS: 36415; 36556; 71045; 74177; 80053; 81001; 83605; 83690; 84484; 85025; 85610; 85730; 87040; 87086; 93005; 94640; 94660; 99285; J7030; J7040; Q9967; A4216; J2405